=== PATIENT | male | born 1955 | race Caucasian/White ===

== ENCOUNTER 2022-08-14 15:00 | Outpatient (CLI) | payer MEDICARE, BC, SELFPAY ==
[2022-08-14 15:19] LABS: Chloride* 105 mmol/L (96-114); Sodium* 141 mmol/L (135-149)
[2022-08-14 15:22] LABS: Blood Urea Nitrogen* 22 mg/dL (7-30); Carbon Dioxide* 25 mmol/L (20-32); Cholesterol* 146 mg/dL (90-199); Creatinine* 1.3 mg/dL (0.5-1.5); Estimated Glomerular Filt Rate 60 ml/min; Glucose* 94 mg/dL (60-115)
[2022-08-14 15:23] LABS: Calcium* 9.7 mg/dL (8.4-10.6); HDL Cholesterol* 78 mg/dL (>=40); LDL Cholesterol Calculated 39 mg/dL (<100); Triglycerides* 143 mg/dL (40-149)
[2022-08-14 15:30] LABS: Potassium* 4.6 mmol/L (3.6-5.1)
== END 2022-08-14 15:01 | disposition home or self-care (01) ==
PROVIDERS: PCP Family Medicine; Visit Provider Family Medicine
DX: E78.5 Hyperlipidemia, unspecified (principal); I10 Essential (primary) hypertension
CPT/HCPCS: 80048; 80061

== ENCOUNTER 2023-05-20 14:00 | Outpatient (CLI) | payer MEDICARE, BC, SELFPAY | END 2023-05-20 14:01 | disposition home or self-care (01) | LOC: NFLDREF 05-22 06:51 | PROVIDERS: PCP Family Medicine; Referring Provider Family Medicine; Visit Provider Family Medicine | DX: Z01.818 Encounter for other preprocedural examination (principal); D64.9 Anemia, unspecified; N39.0 Urinary tract infection, site not specified; R91.8 Other nonspecific abnormal finding of lung field; J98.59 Other diseases of mediastinum, not elsewhere classified; I10 Essential (primary) hypertension; E78.2 Mixed hyperlipidemia; I25.10 Atherosclerotic heart disease of native coronary artery without angina pectoris; I73.9 Peripheral vascular disease, unspecified; Z72.0 Tobacco use; Z13.89 Encounter for screening for other disorder | CPT/HCPCS: 87086; 87186 ==

== ENCOUNTER 2023-06-10 06:19 | Day surgery (SDC) | payer MEDICARE, BC, SELFPAY ==
[2023-06-10] VITALS (7 sets, daily range): BP systolic 94–105; BP diastolic 62–88; PULSE 71–78; RESP 16; TEMP 36.1–36.6; O2SAT 94–96; BMI 25.2
[2023-06-10] MEDS: LACTATED RINGERS 1000 ML 1,000 ML 100 ML IV (06:35)
--- NOTE | 2023-06-10 07:22 | W.ANESCHARGE ---
Anesthesia Charges Start Date/Time Anesthesia Start Date: 06/10/23 Anesthesia Start Time: 07:50 Stop Date/Time Anesthesia Stop Date: 06/10/23 Anesthesia Stop Time: 08:56
--- NOTE | 2023-06-10 07:30 | CRLHL7_ITS ---
For Patients: As a result of the Century Cures Act, medical imaging exams and procedure reports are released immediately into your electronic medical record. You may view this report before your referring provider. If you have questions, please contact your health care provider. Indication: Port placement Technique: Two fluoroscopic images of the upper chest. Fluoroscopic time 39.7 seconds. IMPRESSION: Fluoroscopic guidance for Port-A-Cath placement. Dictated by Gaudencio Walden MD @ 06/10/2023 9:21:19 AM (Electronically Signed)
[2023-06-10] MEDS: CEFAZOLIN 2 GM INJ IVP (08:01)
[2023-06-10] MEDS: LIDOCAINE 1% MDV 20 ML INJECTION (08:17)
[2023-06-10] MEDS: BUPIVACAINE 0.5% 30 ML INJECTION (08:17)
[2023-06-10] MEDS: HEPARIN 500 UNIT/5 ML SYRINGE IVF (08:35)
--- NOTE | 2023-06-10 08:52 | CRLHL7_ITS ---
For Patients: As a result of the Cures Act, medical imaging exams and procedure reports are released immediately into your electronic medical record. You may view this report before your referring provider. If you have questions, please contact your health care provider. INDICATION: Port placement TECHNIQUE: Chest 1 view COMPARISON: CT-PET 05/03/2023 FINDINGS: Right-sided Port-A-Cath is present with the tip in the mid SVC. Mediastinal adenopathy and post treatment changes to the right lung noted. No pneumothorax. IMPRESSION: No pneumothorax after Port-A-Cath placement. Dictated by Gaudencio Walden MD @ 06/10/2023 9:22:38 AM (Electronically Signed)
--- NOTE | 2023-06-10 08:57 | PM.GSPRC ---
Operative Note Date of procedure: 06/10/23 Pre-op diagnosis: Lung cancer Post-op diagnosis: same Type of Procedure: Right IJ port placement with ultrasound and fluoroscopic guidance. 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 He was recommended to undergo chemotherapy and a port was requested to accomplish this. Procedure Description: After discussing the risks and benefits of the procedure, the patient signed informed consent.? The operative site was marked and the patient was brought to the operating room and placed on the operating table in supine position.? Care was taken to pad the patient's pressure points.?? The patient was then Given sedation by anesthesia.?? The operative site was then prepped and draped in the usual sterile fashion.? A time-out was then performed. The patient's right internal jugular vein was visualized using ultrasound. Local anesthetic was injected into the skin overlying the vein. This was accessed percutaneously using ultrasound guidance. Using Seldinger technique, a guidewire was threaded through the needle. A skin barbra was made around the wire. Next, local anesthetic was injected into the skin below the clavicle and along the proposed tract to the neck incision. A skin incision was then made with a 15 blade and a pocket created in the subcutaneous tissue with cautery. A tunneler was then used to thread the catheter from the chest wall pocket to the neck incision. Once this was done fluoroscopy was brought into the field. Over the wire the tract was dilated using fluoroscopy. The wire and the dilator were then removed leaving the sheath in the vein. Through this, the catheter was threaded. Using fluoroscopy, the catheter was positioned into the distal SVC. The catheter was noted to flush and aspirate easily. The catheter was then connected to the port. The port was placed in the pocket and secured in place with 2 0 Prolene sutures. It was noted to flush and aspirate easily. This was then locked with heparinized saline. The skin was closed with absorbable suture. Glue was then applied. Instrument sponge and needle counts were correct at the end of the case. The patient was woken and taken to the recovery area in stable condition. The patient tolerated the procedure well. Findings: right IJ power port placed in the low SVC Implants: Power port Anesthesia: MAC Surgeon: Kaye Whitten MD Estimated blood loss (mL): 3 Condition: stable Disposition: same day
--- NOTE | 2023-06-10 08:58 | W.ANESCHARGE ---
Anesthesia Charges Start Date/Time Anesthesia Start Date: 06/10/23 Anesthesia Start Time: 07:50 Stop Date/Time Anesthesia Stop Date: 06/10/23 Anesthesia Stop Time: 08:56
== END 2023-06-10 10:12 | disposition home or self-care (01) ==
PROVIDERS: PCP Family Medicine; Visit Provider Surgery
PROC: (CPT 36561; principal; 2023-06-10 07:30)
DX: Z45.2 Encounter for adjustment and management of vascular access device (principal); C34.92 Malignant neoplasm of unspecified part of left bronchus or lung
CPT/HCPCS: 36561; 00532; 71045; 76000; C1788; J0665; J0690; J1100; J1642; J2250; J2371; J2405; J2704; J3010; J3490; J7120

== ENCOUNTER 2023-11-12 09:25 | Outpatient (CLI) | payer MEDICARE, BC, SELFPAY ==
--- NOTE | 2023-11-12 10:00 | CRLHL7_ITS ---
For Patients: As a result of the Century Cures Act, medical imaging exams and procedure reports are released immediately into your electronic medical record. You may view this report before your referring provider. If you have questions, please contact your health care provider. Indication: MALIGNANT NEOPLASM OF LUNG - SCLC, TREATMENT RESPONSE Technique: CT Chest w/ 75cc [id number] Please note that all CT scans at this facility use dose modulation, iterative reconstruction, and/or weight-based dosing when appropriate to reduce radiation dose to as low as reasonably achievable. Comparison: CT PET 05/03/2023, CT chest 04/12/2023 Findings: Right Port-A-Cath is present. Decreased left upper mediastinal lymph node, previously measuring 13 millimeters and now measuring less than 4 millimeters. Decreased precarinal lymph node, previously measuring 13 millimeters, now measuring less than 4 millimeters. Decreased bulky adenopathy in the subcarinal space, now measuring up to 1.8 cm compared to 4.5 cm in AP dimension on the prior study. Decreased soft tissue density in the right hilum. Bilateral focal subareolar gynecomastia. Cholelithiasis. Chronic calcifications associated with the uncinate process of the pancreas. Atherosclerotic disease. Scoliotic deformity. Clearing of previously noted densities within the posterior aspect of the right upper lobe, however, there are 2 new subpleural densities within the right upper lobe, 1 measuring 6.4 millimeters, series 3, image 29 and measuring 5.5 millimeters, series 3, image 39. COPD/emphysema. Left lower lobe scarring. Impression: Decreased adenopathy within the mediastinum and right hilum. Clearing of previously noted densities within the right upper lobe at the posterior lateral aspect. Development of 2 new posterior subpleural nodules measuring 5.5 millimeters and 6.4 millimeters. Chronic cholelithiasis and sequela of chronic pancreatitis. Please note that all CT scans at this facility use dose modulation, iterative reconstruction, and/or weight-based dosing when appropriate to reduce radiation dose to as low as reasonably achievable. Dictated by Gaudencio Walden MD @ 11/12/2023 1:37:26 PM (Electronically Signed)
== END 2023-11-12 09:26 | disposition home or self-care (01) ==
LOC: CT 09:27
PROVIDERS: PCP Family Medicine; Visit Provider Internal Medicine Hematology & Oncology
DX: C34.90 Malignant neoplasm of unspecified part of unspecified bronchus or lung (principal); K80.20 Calculus of gallbladder without cholecystitis without obstruction; K86.1 Other chronic pancreatitis
CPT/HCPCS: 71260; Q9967

== ENCOUNTER 2023-11-20 09:00 | Outpatient (RCR) | payer MEDICARE, BC, SELFPAY ==
[2023-05-30 14:11] LABS: Basophils Absolute Auto 0.02 K/uL (0.00-0.30); Basophils Percent Auto 0.3 % (0.0-3.0); Eosinophils Absolute Auto 0.02 K/uL (0.00-0.50); Eosinophils Percent Auto 0.3 % (0.0-7.0); Hematocrit 36.1 % (37.0-53.0); Hemoglobin* 11.7 gm/dL (13.5-17.5); Immature Granulocytes Abs Auto 0.02 K/uL (0.00-0.30); Immature Granulocytes Pct Auto 0.3 %; Lymphocytes Percent Auto 15.4 % (20-44); Mean Corpuscular HGB Conc 32 gm/dL (32-36); Mean Corpuscular Hemoglobin 31 pg (26-34); Mean Corpuscular Volume 96 fL (80-100); Monocytes Percent Auto 7.8 % (0.0-11.0); Neutrophils Percent Auto 75.9 % (42.0-72.0); Platelet Count* 256 K/uL (140-440); RDW Coefficient of Variation % 12.9 % (11.5-15.5); Red Blood Count 3.76 m/uL (4.30-5.90); White Blood Count* 6.96 K/uL (4.50-11.00)
[2023-05-30 14:21] LABS: Slide Review Reflex No
[2023-05-30 14:42] LABS: Albumin* 4.4 g/dL (3.3-5.0); Chloride* 96 mmol/L (96-114); Potassium* 4.4 mmol/L (3.6-5.1); Sodium* 133 mmol/L (135-149)
[2023-05-30 14:44] LABS: Bilirubin Total* 0.9 mg/dL (0.1-1.5); Creatinine* 1.2 mg/dL (0.5-1.5); Estimated Glomerular Filt Rate 65 ml/min
[2023-05-30 14:45] LABS: Alanine Aminotransferase* 20 U/L (4-50); Alkaline Phosphatase* 59 U/L (40-150); Aspartate Amino Transferase* 36 U/L (12-35); Blood Urea Nitrogen* 25 mg/dL (7-30); Calcium* 9.5 mg/dL (8.4-10.6); Carbon Dioxide* 29 mmol/L (20-32); Glucose* 125 mg/dL (60-115); Total Protein* 7.3 g/dL (6.0-8.3)
--- NOTE | 2023-05-31 11:43 | URNOTE ---
Request received for authorization for Carboplatin (J9045), Etoposide (J9181), Atezolizumab (J9022), Neulasta (J2506), Emend (J1453), Aloxi (J2469). Prior authorization is not required as services are based on medical necessity and follow Medicare guidelines.
--- NOTE | 2023-05-31 15:51 | ONC.NURNOTE ---
After discussion between Mara Curran APRN and Dr. Bronson, orders for neulasta discontinued and not needed at this time.
[2023-05-31 16:27] LABS: Thyroid Stimulating Hormone* 0.117 uIU/mL (0.270-4.20)
[2023-06-02 07:52] LABS: Cortisol, Serum 9.8 ug/dL
[2023-06-03 11:00] VITALS: BP 109/61; PULSE 86; RESP 16; TEMP 35.9; O2SAT 98
[2023-06-03] MEDS: PALONOSETRON 0.25 MG/5 ML inj IV (12:09)
[2023-06-03] MEDS: dexAMETHasone 10 MG in 0.9 % SODIUM CHLORIDE 100 ml 100 ML 404 MG IVPB (12:09)
[2023-06-03] MEDS: FOSAPREPITANT 150 MG inj 150 MG in 0.9 % SODIUM CHLORIDE 250 ml 250 ML 510 MG IVPB (12:34)
[2023-06-03 14:20] LABS: Free T4 Free Thyroxine* 1.51 ng/dL (0.70-1.85)
--- NOTE | 2023-06-03 15:01 | URNOTE ---
Request received for authorization forSteve ([id number]). Prior authorization is not required as services are based on medical necessity and follow Medicare guidelines.
--- NOTE | 2023-06-03 15:40 | ONC.NURNOTE ---
New treatment teaching with son in person and 2 other children on the phone reviewed atezolizumab, carbo, etoposide, treatment schedule, possible side effects, self care management at home, calling with symptoms, ER if fever over 100.4 discussed immunotherapy and chemotherapy differences and calling early with symptom changes at home reviewed contents of the new treatment binder questions addressed from patient and the 3 children listening in person and on the phone consents/SOLITARIO reviewed and signed
--- NOTE | 2023-06-03 16:02 | ONC.NURNOTE ---
Addendum entered by Sheila Ann RN 06/06/23 15:39: Pt doing well today after receiving Tecentriq yesterday. No concerns at this time. Addendum entered by Pippa Adam RN 06/04/23 13:57: Dr. Nascimento reviewed T4 and T3 and noted them to be WNL range so OK to proceed with Tecentriq in am per verbal order Dr. Nascimento despite TSH being 0.117. Patient to follow up with primary MD regarding low TSH Original Note: Pt here for Cycle 1 day 1 of Tecentriq/Carboplatin/Etoposide. VSS. TSH 0.117, reviewed by Dr. Nascimento. Per Dr. Nascimento, we need to obtain a T3 and T4 level prior to giving Tecentriq. Tecentriq on hold today. Pt tolerated Carboplatin and Etoposide without difficulty. Pt's IV did infiltrate after etoposide, pt had a quarter sized infiltrate. Pt instructed to apply warm compresses for 15 min 4x/day for the next 24-48 hours. Nursing to assess on 06/04/23 when pt returns for day [address]. [address] Nascimento T3 and T4 results when resulted to determine when Tecentriq can be initiated. Vegetable Washing Machine Operator faxed TSH level to pt's primary Care physican. Pt also given calendar for when to take antiemetics. Pt verbalized understanding of plan of care.
[2023-06-04 09:04] VITALS: BP 111/70; PULSE 91; RESP 16; TEMP 36.7; O2SAT 99
[2023-06-04] MEDS: GRANISETRON 1 MG/ML inj IVP (09:31)
[2023-06-04 10:32] LABS: Total T3 99 ng/dL (80-200)
[2023-06-05 09:03] VITALS: BP 115/63; PULSE 95; RESP 16; TEMP 36.2; O2SAT 99
[2023-06-05] MEDS: GRANISETRON 1 MG/ML inj IVP (10:52)
[2023-06-24 09:20] LABS: Basophils Percent Auto 0.5 % (0.0-3.0); Eosinophils Percent Auto 0.2 % (0.0-7.0); Hematocrit 26.7 % (37.0-53.0); Hemoglobin* 8.7 gm/dL (13.5-17.5); Immature Granulocytes Pct Auto 1.6 %; Lymphocytes Percent Auto 40.6 % (20-44); Mean Corpuscular HGB Conc 33 gm/dL (32-36); Mean Corpuscular Hemoglobin 31 pg (26-34); Mean Corpuscular Volume 96 fL (80-100); Monocytes Percent Auto 15.1 % (0.0-11.0); Platelet Count* 339 K/uL (140-440); RDW Coefficient of Variation % 13.9 % (11.5-15.5); Red Blood Count 2.78 m/uL (4.30-5.90); White Blood Count* 4.43 K/uL (4.50-11.00)
[2023-06-24 09:37] LABS: Albumin* 3.9 g/dL (3.3-5.0); Chloride* 102 mmol/L (96-114); Potassium* 4.2 mmol/L (3.6-5.1); Slide Review Reflex No; Sodium* 135 mmol/L (135-149)
[2023-06-24 09:39] LABS: Creatinine* 1.8 mg/dL (0.5-1.5); Estimated Glomerular Filt Rate 40 ml/min
[2023-06-24 09:40] LABS: Alanine Aminotransferase* 19 U/L (4-50); Alkaline Phosphatase* 62 U/L (40-150); Aspartate Amino Transferase* 25 U/L (12-35); Bilirubin Total* 0.5 mg/dL (0.1-1.5); Blood Urea Nitrogen* 24 mg/dL (7-30); Carbon Dioxide* 28 mmol/L (20-32); Glucose* 119 mg/dL (60-115); Total Protein* 6.6 g/dL (6.0-8.3)
[2023-06-24 09:41] LABS: Calcium* 8.9 mg/dL (8.4-10.6)
[2023-06-24] MEDS: dexAMETHasone 10 MG in 0.9 % SODIUM CHLORIDE 100 ml 100 ML 404 MG IVPB (11:41)
[2023-06-24] MEDS: PALONOSETRON 0.25 MG/5 ML inj IV (11:41)
[2023-06-24] MEDS: FOSAPREPITANT 150 MG inj 150 MG in 0.9 % SODIUM CHLORIDE 250 ml 250 ML 800 MG IVPB (11:59)
[2023-06-24] MEDS: CARBOplatin 300 MG, TUBING SECONDARY 1 EACH in 0.9 % SODIUM CHLORIDE 250 ml 250 ML 560 MG IVPB (12:37)
[2023-06-25 11:04] VITALS: BP 100/68; PULSE 105; RESP 16; TEMP 36.1; O2SAT 96
[2023-06-25] MEDS: 0.9 % SODIUM CHLORIDE 500 ML 500 ML IVPB (11:50)
[2023-06-25] MEDS: GRANISETRON 1 MG/ML inj IVP (13:20)
[2023-06-25 13:48] VITALS: BMI 23.3
[2023-06-25 21:37] LABS: Cortisol, Serum 18.1 ug/dL
[2023-07-01 08:55] VITALS: BP 111/63; PULSE 99; RESP 18; TEMP 36.9; O2SAT 96
[2023-07-01 09:45] LABS: Basophils Percent Auto 0.6 % (0.0-3.0); Eosinophils Percent Auto 0.6 % (0.0-7.0); Hematocrit 24.3 % (37.0-53.0); Immature Granulocytes Pct Auto 0.9 %; Lymphocytes Percent Auto 32.9 % (20-44); Mean Corpuscular HGB Conc 33 gm/dL (32-36); Mean Corpuscular Hemoglobin 32 pg (26-34); Mean Corpuscular Volume 98 fL (80-100); Monocytes Percent Auto 0.9 % (0.0-11.0); Neutrophils Percent Auto 64.1 % (42.0-72.0); Platelet Count* 275 K/uL (140-440); RDW Coefficient of Variation % 13.9 % (11.5-15.5); Red Blood Count 2.49 m/uL (4.30-5.90); White Blood Count* 3.37 K/uL (4.50-11.00)
[2023-07-01] MEDS: 0.9 % SODIUM CHLORIDE 500 ML 500 ML IVPB (09:45)
[2023-07-01 09:46] LABS: Slide Review Reflex No
[2023-07-01 09:57] LABS: Chloride* 105 mmol/L (96-114); Potassium* 4.1 mmol/L (3.6-5.1); Sodium* 138 mmol/L (135-149)
[2023-07-01] MEDS: dexAMETHasone 10 MG in 0.9 % SODIUM CHLORIDE 100 ml 100 ML 420 MG IVPB (09:58)
[2023-07-01 10:00] LABS: Blood Urea Nitrogen* 25 mg/dL (7-30); Carbon Dioxide* 25 mmol/L (20-32); Creatinine* 1.2 mg/dL (0.5-1.5); Estimated Glomerular Filt Rate 65 ml/min
[2023-07-01 10:01] LABS: Calcium* 8.9 mg/dL (8.4-10.6); Glucose* 113 mg/dL (60-115); Magnesium* 1.3 mg/dL (1.5-2.6)
[2023-07-01] MEDS: MAGNESIUM SULFATE 2 GM/50 ML PIGGYBACK IVPB (11:25)
[2023-07-02] VITALS (8 sets, daily range): BP systolic 78–104; BP diastolic 47–66; PULSE 76–92; RESP 14–18; TEMP 36.3–36.8; O2SAT 95–98
[2023-07-02] MEDS: SODIUM CHLORIDE 0.9 % (FLUSH) 10 ML SYRINGE IVF (13:06)
[2023-07-02] MEDS: HEPARIN 500 UNIT/5 ML SYRINGE IVF (13:06)
[2023-07-08] MEDS: 0.9 % SODIUM CHLORIDE 500 ML 500 ML IVPB (09:25)
[2023-07-08 09:39] LABS: Chloride* 103 mmol/L (96-114); Potassium* 4.4 mmol/L (3.6-5.1); Sodium* 137 mmol/L (135-149)
[2023-07-08 09:42] LABS: Blood Urea Nitrogen* 24 mg/dL (7-30); Carbon Dioxide* 26 mmol/L (20-32); Creatinine* 1.2 mg/dL (0.5-1.5); Estimated Glomerular Filt Rate 65 ml/min; Magnesium* 1.6 mg/dL (1.5-2.6)
[2023-07-08 09:43] LABS: Calcium* 9.2 mg/dL (8.4-10.6); Glucose* 110 mg/dL (60-115)
[2023-07-08 09:47] VITALS: BP 92/66; PULSE 88; RESP 16; TEMP 36.4; O2SAT 97
[2023-07-08] MEDS: dexAMETHasone 10 MG in 0.9 % SODIUM CHLORIDE 100 ml 100 ML 420 MG IVPB (09:54)
--- NOTE | 2023-07-08 10:34 | PC.NURSE ---
Pt present at [facility] for labs and hydration. Mg 1.6. Discussed with Mara Curran APRN and pt was instructed to continue oral magnesium supplementation. Terence verbalized understanding.
[2023-07-08 11:13] LABS: Anion Gap 8 mEq/L (7-15)
[2023-07-15 10:47] LABS: Basophils Absolute Auto 0.01 K/uL (0.00-0.30); Basophils Percent Auto 0.2 % (0.0-3.0); Eosinophils Absolute Auto 0.07 K/uL (0.00-0.50); Eosinophils Percent Auto 1.2 % (0.0-7.0); Hematocrit 31.5 % (37.0-53.0); Hemoglobin* 10.2 gm/dL (13.5-17.5); Immature Granulocytes Abs Auto 0.07 K/uL (0.00-0.30); Immature Granulocytes Pct Auto 1.2 %; Lymphocytes Absolute Auto 1.72 K/uL (0.90-2.90); Lymphocytes Percent Auto 28.7 % (20-44); Mean Corpuscular HGB Conc 32 gm/dL (32-36); Mean Corpuscular Hemoglobin 33 pg (26-34); Mean Corpuscular Volume 100 fL (80-100); Monocytes Percent Auto 15.2 % (0.0-11.0); Neutrophils Absolute Auto 3.21 K/uL (1.7-7.0); Neutrophils Percent Auto 53.5 % (42.0-72.0); Platelet Count* 202 K/uL (140-440); RDW Coefficient of Variation % 17.4 % (11.5-15.5); Red Blood Count 3.14 m/uL (4.30-5.90); White Blood Count* 5.99 K/uL (4.50-11.00)
[2023-07-15 10:49] LABS: Slide Review Reflex No
[2023-07-15 14:38] LABS: Thyroid Stimulating Hormone* 0.491 uIU/mL (0.270-4.20)
[2023-07-15 14:58] LABS: Anion Gap 10 mEq/L (7-15); Blood Urea Nitrogen* 17 mg/dL (7-30); Carbon Dioxide* 25 mmol/L (20-32); Chloride* 104 mmol/L (96-114); Potassium* 4.2 mmol/L (3.6-5.1); Sodium* 139 mmol/L (135-149)
[2023-07-15 14:59] LABS: Alanine Aminotransferase* 23 U/L (4-50); Albumin* 4.1 g/dL (3.3-5.0); Alkaline Phosphatase* 51 U/L (40-150); Aspartate Amino Transferase* 28 U/L (12-35); Bilirubin Total* 0.5 mg/dL (0.1-1.5); Calcium* 9.6 mg/dL (8.4-10.6); Creatinine* 1.2 mg/dL (0.5-1.5); Estimated Glomerular Filt Rate 65 ml/min; Glucose* 164 mg/dL (60-115); Total Protein* 6.9 g/dL (6.0-8.3)
[2023-07-16 08:36] VITALS: BP 97/63; PULSE 96; RESP 16; TEMP 36.4; O2SAT 97
[2023-07-16] MEDS: dexAMETHasone 10 MG in 0.9 % SODIUM CHLORIDE 100 ml 100 ML 404 MG IVPB (09:54)
[2023-07-16] MEDS: PALONOSETRON 0.25 MG/5 ML inj IV (09:54)
[2023-07-16] MEDS: 0.9 % SODIUM CHLORIDE 500 ML 500 ML IVPB (10:17)
[2023-07-16] MEDS: SODIUM CHLORIDE 0.9 % (FLUSH) 10 ML SYRINGE IVF (10:17)
[2023-07-16] MEDS: FOSAPREPITANT 150 MG inj 150 MG in 0.9 % SODIUM CHLORIDE 250 ml 250 ML 510 MG IVPB (10:17)
[2023-07-16] MEDS: CARBOplatin 300 MG, TUBING SECONDARY 1 EACH in 0.9 % SODIUM CHLORIDE 250 ml 250 ML 560 MG IVPB (10:58)
[2023-07-16] MEDS: HEPARIN 500 UNIT/5 ML SYRINGE IVF (13:11)
[2023-07-17 08:44] VITALS: BP 103/70; PULSE 98; RESP 16; TEMP 37.1; O2SAT 97
[2023-07-17] MEDS: GRANISETRON 1 MG/ML inj IVP (08:49)
[2023-07-17] MEDS: 0.9 % SODIUM CHLORIDE 500 ML 500 ML IVPB (08:49)
[2023-07-17] MEDS: HEPARIN 500 UNIT/5 ML SYRINGE IVF (09:34)
[2023-07-17] MEDS: SODIUM CHLORIDE 0.9 % (FLUSH) 10 ML SYRINGE IVF (09:34)
[2023-07-18 09:12] VITALS: BP 91/58; PULSE 90; RESP 16; TEMP 36.2; O2SAT 99
[2023-07-18] MEDS: GRANISETRON 1 MG/ML inj IVP (09:12)
[2023-07-18] MEDS: 0.9 % SODIUM CHLORIDE 250 ml IV (09:12)
[2023-07-18] MEDS: SODIUM CHLORIDE 0.9 % (FLUSH) 10 ML SYRINGE IVF (10:47)
[2023-07-18] MEDS: HEPARIN 500 UNIT/5 ML SYRINGE IVF (10:47)
[2023-07-25 08:37] VITALS: BP 98/63; PULSE 106; RESP 16; TEMP 36.3; O2SAT 98
[2023-07-25] MEDS: 0.9 % SODIUM CHLORIDE 500 ML 500 ML IVPB (08:51)
[2023-07-25] MEDS: dexAMETHasone 10 MG in 0.9 % SODIUM CHLORIDE 100 ml 100 ML 404 MG IVPB (08:59)
--- NOTE | 2023-07-25 09:16 | ONC.NURNOTE ---
Patient here for fluids and dexamethasone. Patient states I am feeling great, no concerns today. BP was 98/63. Denies dizziness and light headedness. Patient stated that Dr. Burnham took him off of Lisinopril 2.5mg and Amlodipine 2.5mg and is only taking Flomax 0.4mg and Metoprolol 25mg daily. Manager Sap could not find this in the documentation from Dr. Burnham, but patient stated he has been in contact by phone with Dr. Burnham and this is what his regimen is. Patient also checks his blood pressure at home daily. Pulse was 107. When palpated by health science writer, it was regularly irregular and skipping a beat about every 15 beats. Patient denies having atrial fibrillation and and irregular heart rate in the past. Will recheck once fluids are infused.
[2023-07-25 09:37] VITALS: BP 101/64; PULSE 94; RESP 16; O2SAT 98
[2023-07-25] MEDS: HEPARIN 500 UNIT/5 ML SYRINGE IVF (09:37)
[2023-07-25] MEDS: SODIUM CHLORIDE 0.9 % (FLUSH) 10 ML SYRINGE IVF (09:38)
--- NOTE | 2023-07-25 09:38 | ONC.NURNOTE ---
Rechecked vital signs. Heart rate now 94bpm and regular.
[2023-07-31 08:31] VITALS: BP 95/66; BP 99/63; PULSE 103; PULSE 119; RESP 20; TEMP 36.6; O2SAT 98
[2023-07-31] MEDS: 0.9 % SODIUM CHLORIDE 500 ML 500 ML IVPB (08:56)
[2023-07-31] MEDS: SODIUM CHLORIDE 0.9 % (FLUSH) 10 ML SYRINGE IVF (08:57)
[2023-07-31] MEDS: HEPARIN 500 UNIT/5 ML SYRINGE IVF (08:57)
[2023-07-31] MEDS: dexAMETHasone 10 MG in 0.9 % SODIUM CHLORIDE 100 ml 100 ML 404 MG IVPB (09:01)
--- NOTE | 2023-07-31 09:15 | ONC.NURNOTE ---
at rest heart rate reg s1s2 at 100 beats per minute. Discussed s/s dehydration and importance of rest and water.
[2023-07-31 12:10] VITALS: BP 129/83; PULSE 90
[2023-08-05 09:03] LABS: Basophils Absolute Auto 0.01 K/uL (0.00-0.30); Basophils Percent Auto 0.2 % (0.0-3.0); Eosinophils Absolute Auto 0.02 K/uL (0.00-0.50); Eosinophils Percent Auto 0.4 % (0.0-7.0); Hematocrit 25.9 % (37.0-53.0); Hemoglobin* 8.4 gm/dL (13.5-17.5); Lymphocytes Absolute Auto 1.36 K/uL (0.90-2.90); Lymphocytes Percent Auto 27.1 % (20-44); Mean Corpuscular HGB Conc 32 gm/dL (32-36); Mean Corpuscular Hemoglobin 34 pg (26-34); Mean Corpuscular Volume 104 fL (80-100); Monocytes Percent Auto 14.5 % (0.0-11.0); Neutrophils Percent Auto 55.8 % (42.0-72.0); Platelet Count* 262 K/uL (140-440); RDW Coefficient of Variation % 20.8 % (11.5-15.5); White Blood Count* 5.02 K/uL (4.50-11.00)
[2023-08-05 09:11] LABS: Slide Review Reflex No
[2023-08-05 09:27] LABS: Albumin* 3.8 g/dL (3.3-5.0)
[2023-08-05 09:28] LABS: Chloride* 102 mmol/L (96-114); Potassium* 4.1 mmol/L (3.6-5.1); Sodium* 136 mmol/L (135-149)
[2023-08-05 09:30] LABS: Anion Gap 8 mEq/L (7-15); Aspartate Amino Transferase* 24 U/L (12-35); Bilirubin Total* 0.3 mg/dL (0.1-1.5); Carbon Dioxide* 26 mmol/L (20-32); Creatinine* 1.3 mg/dL (0.5-1.5); Estimated Glomerular Filt Rate 59 ml/min; Total Protein* 6.5 g/dL (6.0-8.3)
[2023-08-05 09:31] LABS: Alanine Aminotransferase* 19 U/L (4-50); Alkaline Phosphatase* 53 U/L (40-150); Blood Urea Nitrogen* 21 mg/dL (7-30); Calcium* 9.4 mg/dL (8.4-10.6); Glucose* 149 mg/dL (60-115)
[2023-08-05 10:17] LABS: Thyroid Stimulating Hormone* 0.667 uIU/mL (0.270-4.20)
[2023-08-05] MEDS: 0.9 % SODIUM CHLORIDE 250 ml IV (10:30)
[2023-08-05] MEDS: PALONOSETRON 0.25 MG/5 ML inj IV (11:30)
[2023-08-05] MEDS: dexAMETHasone 10 MG in 0.9 % SODIUM CHLORIDE 100 ml 100 ML 420 MG IVPB (11:30)
[2023-08-05] MEDS: FOSAPREPITANT 150 MG inj 150 MG in 0.9 % SODIUM CHLORIDE 250 ml 250 ML 800 MG IVPB (11:51)
[2023-08-05] MEDS: CARBOplatin 300 MG, TUBING SECONDARY 1 EACH in 0.9 % SODIUM CHLORIDE 250 ml 250 ML 560 MG IVPB (12:19)
[2023-08-05] MEDS: HEPARIN 500 UNIT/5 ML SYRINGE IVF (14:26)
[2023-08-05] MEDS: SODIUM CHLORIDE 0.9 % (FLUSH) 10 ML SYRINGE IVF (14:26)
[2023-08-06 08:39] VITALS: BP 100/66; PULSE 116; RESP 16; TEMP 36.9; O2SAT 96
[2023-08-06] MEDS: 0.9 % SODIUM CHLORIDE 250 ml IV (08:58)
[2023-08-06] MEDS: GRANISETRON 1 MG/ML inj IVP (08:58)
[2023-08-06 10:42] VITALS: BP 91/56; PULSE 93; RESP 16; TEMP 36.6; O2SAT 95
[2023-08-06 11:03] VITALS: BP 98/62; PULSE 97; RESP 16; TEMP 36.6; O2SAT 95
[2023-08-06 11:48] VITALS: BP 110/73; RESP 16; TEMP 36.7; O2SAT 98
[2023-08-06 12:48] VITALS: BP 131/81; PULSE 84; RESP 18; TEMP 36.7; O2SAT 97
[2023-08-06 13:31] VITALS: BP 136/82; PULSE 80; RESP 16; TEMP 36.8; O2SAT 99
[2023-08-07 08:35] VITALS: BP 107/66; PULSE 88; RESP 16; TEMP 36.4; O2SAT 98
[2023-08-07] MEDS: 0.9 % SODIUM CHLORIDE 250 ml IV (08:49)
[2023-08-07] MEDS: GRANISETRON 1 MG/ML inj IVP (08:49)
[2023-08-07] MEDS: SODIUM CHLORIDE 0.9 % (FLUSH) 10 ML SYRINGE IVF (08:49)
[2023-08-27 10:17] LABS: Basophils Absolute Auto 0.02 K/uL (0.00-0.30); Basophils Percent Auto 0.4 % (0.0-3.0); Eosinophils Absolute Auto 0.05 K/uL (0.00-0.50); Eosinophils Percent Auto 0.9 % (0.0-7.0); Hematocrit 28.6 % (37.0-53.0); Hemoglobin* 9.1 gm/dL (13.5-17.5); Immature Granulocytes Abs Auto 0.06 K/uL (0.00-0.30); Immature Granulocytes Pct Auto 1.1 %; Lymphocytes Absolute Auto 1.17 K/uL (0.90-2.90); Lymphocytes Percent Auto 21.7 % (20-44); Mean Corpuscular HGB Conc 32 gm/dL (32-36); Mean Corpuscular Hemoglobin 34 pg (26-34); Mean Corpuscular Volume 108 fL (80-100); Monocytes Percent Auto 15.6 % (0.0-11.0); Neutrophils Absolute Auto 3.25 K/uL (1.7-7.0); Neutrophils Percent Auto 60.3 % (42.0-72.0); Platelet Count* 283 K/uL (140-440); RDW Coefficient of Variation % 22.6 % (11.5-15.5); Red Blood Count 2.65 m/uL (4.30-5.90); White Blood Count* 5.39 K/uL (4.50-11.00)
[2023-08-27 10:19] LABS: Slide Review Reflex No
[2023-08-27 10:25] LABS: Albumin* 4.1 g/dL (3.3-5.0)
[2023-08-27 10:26] LABS: Chloride* 103 mmol/L (96-114); Potassium* 4.4 mmol/L (3.6-5.1); Sodium* 138 mmol/L (135-149)
[2023-08-27 10:28] LABS: Anion Gap 10 mEq/L (7-15); Aspartate Amino Transferase* 35 U/L (12-35); Bilirubin Total* 0.3 mg/dL (0.1-1.5); Carbon Dioxide* 25 mmol/L (20-32); Creatinine* 1.3 mg/dL (0.5-1.5); Estimated Glomerular Filt Rate 59 ml/min
[2023-08-27 10:29] LABS: Alanine Aminotransferase* 19 U/L (4-50); Alkaline Phosphatase* 64 U/L (40-150); Blood Urea Nitrogen* 16 mg/dL (7-30); Calcium* 9.1 mg/dL (8.4-10.6); Glucose* 126 mg/dL (60-115); Total Protein* 6.9 g/dL (6.0-8.3)
[2023-08-27 11:11] LABS: Thyroid Stimulating Hormone* 0.858 uIU/mL (0.270-4.20)
[2023-08-27] MEDS: SODIUM CHLORIDE 0.9 % (FLUSH) 10 ML SYRINGE IVF (12:27)
[2023-08-27] MEDS: HEPARIN 500 UNIT/5 ML SYRINGE IVF (12:27)
[2023-08-28 14:11] LABS: Cortisol, Serum 13.2 ug/dL
[2023-09-16] MEDS: HEPARIN 500 UNIT/5 ML SYRINGE IVF (08:45)
[2023-09-16] MEDS: SODIUM CHLORIDE 0.9 % (FLUSH) 10 ML SYRINGE IVF (08:45)
[2023-09-16 08:53] LABS: Basophils Absolute Auto 0.02 K/uL (0.00-0.30); Basophils Percent Auto 0.3 % (0.0-3.0); Eosinophils Percent Auto 1.4 % (0.0-7.0); Hemoglobin* 11.1 gm/dL (13.5-17.5); Immature Granulocytes Abs Auto 0.02 K/uL (0.00-0.30); Immature Granulocytes Pct Auto 0.3 %; Lymphocytes Percent Auto 17.3 % (20-44); Mean Corpuscular HGB Conc 32 gm/dL (32-36); Mean Corpuscular Hemoglobin 35 pg (26-34); Mean Corpuscular Volume 109 fL (80-100); Monocytes Percent Auto 11.2 % (0.0-11.0); Neutrophils Absolute Auto 5.03 K/uL (1.7-7.0); Neutrophils Percent Auto 69.5 % (42.0-72.0); Platelet Count* 124 K/uL (140-440); RDW Coefficient of Variation % 17.4 % (11.5-15.5); Red Blood Count 3.21 m/uL (4.30-5.90); White Blood Count* 7.23 K/uL (4.50-11.00)
[2023-09-16 08:56] LABS: Slide Review Reflex No
[2023-09-16 09:12] LABS: Albumin* 4.3 g/dL (3.3-5.0); Chloride* 105 mmol/L (96-114); Potassium* 4.2 mmol/L (3.6-5.1); Sodium* 139 mmol/L (135-149)
[2023-09-16 09:14] LABS: Bilirubin Total* 0.6 mg/dL (0.1-1.5); Creatinine* 1.4 mg/dL (0.5-1.5); Estimated Glomerular Filt Rate 54 ml/min
[2023-09-16 09:15] LABS: Alanine Aminotransferase* 19 U/L (4-50); Alkaline Phosphatase* 66 U/L (40-150); Anion Gap 8 mEq/L (7-15); Aspartate Amino Transferase* 41 U/L (12-35); Blood Urea Nitrogen* 21 mg/dL (7-30); Calcium* 9.2 mg/dL (8.4-10.6); Carbon Dioxide* 26 mmol/L (20-32); Glucose* 116 mg/dL (60-115); Total Protein* 7.3 g/dL (6.0-8.3)
[2023-09-17 08:25] VITALS: BP 111/53; PULSE 108; RESP 16; TEMP 36.1; O2SAT 95
[2023-09-17] MEDS: 0.9 % SODIUM CHLORIDE 250 ml IV (09:04)
[2023-09-17] MEDS: SODIUM CHLORIDE 0.9 % (FLUSH) 10 ML SYRINGE IVF ×2 (09:04→09:41)
[2023-09-17] MEDS: HEPARIN 500 UNIT/5 ML SYRINGE IVF (09:41)
[2023-09-18 01:37] LABS: Cortisol, Serum 16.3 ug/dL
[2023-10-08 08:51] LABS: Basophils Percent Auto 0.5 % (0.0-3.0); Eosinophils Percent Auto 2.7 % (0.0-7.0); Hematocrit 36.2 % (37.0-53.0); Hemoglobin* 11.5 gm/dL (13.5-17.5); Immature Granulocytes Pct Auto 0.2 %; Lymphocytes Percent Auto 19.5 % (20-44); Mean Corpuscular HGB Conc 32 gm/dL (32-36); Mean Corpuscular Hemoglobin 35 pg (26-34); Mean Corpuscular Volume 109 fL (80-100); Neutrophils Percent Auto 65.1 % (42.0-72.0); Platelet Count* 116 K/uL (140-440); RDW Coefficient of Variation % 14.1 % (11.5-15.5); Red Blood Count 3.31 m/uL (4.30-5.90); White Blood Count* 4.01 K/uL (4.50-11.00)
[2023-10-08 08:56] LABS: Slide Review Reflex No
[2023-10-08 09:07] LABS: Albumin* 4.3 g/dL (3.3-5.0); Chloride* 104 mmol/L (96-114); Potassium* 4.3 mmol/L (3.6-5.1); Sodium* 140 mmol/L (135-149)
[2023-10-08 09:10] LABS: Alanine Aminotransferase* 18 U/L (4-50); Alkaline Phosphatase* 51 U/L (40-150); Anion Gap 11 mEq/L (7-15); Aspartate Amino Transferase* 30 U/L (12-35); Bilirubin Total* 0.3 mg/dL (0.1-1.5); Blood Urea Nitrogen* 15 mg/dL (7-30); Carbon Dioxide* 25 mmol/L (20-32); Creatinine* 1.1 mg/dL (0.5-1.5); Estimated Glomerular Filt Rate 73 ml/min; Glucose* 99 mg/dL (60-115)
[2023-10-08 09:11] LABS: Calcium* 9.1 mg/dL (8.4-10.6)
[2023-10-08 10:34] LABS: Thyroid Stimulating Hormone* 0.523 uIU/mL (0.270-4.20)
[2023-10-08] MEDS: SODIUM CHLORIDE 0.9 % (FLUSH) 10 ML SYRINGE IVF (11:37)
[2023-10-08] MEDS: HEPARIN 500 UNIT/5 ML SYRINGE IVF (11:37)
[2023-10-10 10:40] LABS: Cortisol, Serum 11.9 ug/dL
[2023-10-29 08:31] VITALS: BP 122/71; PULSE 99; RESP 16; TEMP 36.4; O2SAT 98
[2023-10-29 08:42] LABS: Basophils Percent Auto 0.5 % (0.0-3.0); Eosinophils Percent Auto 2.3 % (0.0-7.0); Hematocrit 36.7 % (37.0-53.0); Hemoglobin* 11.8 gm/dL (13.5-17.5); Immature Granulocytes Pct Auto 0.2 %; Lymphocytes Percent Auto 18.8 % (20-44); Mean Corpuscular HGB Conc 32 gm/dL (32-36); Mean Corpuscular Hemoglobin 34 pg (26-34); Mean Corpuscular Volume 107 fL (80-100); Monocytes Percent Auto 10.7 % (0.0-11.0); Neutrophils Percent Auto 67.5 % (42.0-72.0); Platelet Count* 119 K/uL (140-440); RDW Coefficient of Variation % 13.1 % (11.5-15.5); Red Blood Count 3.43 m/uL (4.30-5.90)
[2023-10-29 08:43] LABS: Slide Review Reflex No
[2023-10-29 08:55] LABS: Albumin* 4.4 g/dL (3.3-5.0); Chloride* 108 mmol/L (96-114)
[2023-10-29 08:56] LABS: Potassium* 4.6 mmol/L (3.6-5.1); Sodium* 140 mmol/L (135-149)
[2023-10-29 08:58] LABS: Alkaline Phosphatase* 61 U/L (40-150); Anion Gap 10 mEq/L (7-15); Aspartate Amino Transferase* 29 U/L (12-35); Bilirubin Total* 0.3 mg/dL (0.1-1.5); Carbon Dioxide* 22 mmol/L (20-32); Creatinine* 1.4 mg/dL (0.5-1.5); Estimated Glomerular Filt Rate 54 ml/min
[2023-10-29 08:59] LABS: Alanine Aminotransferase* 20 U/L (4-50); Blood Urea Nitrogen* 33 mg/dL (7-30); Calcium* 9.2 mg/dL (8.4-10.6); Glucose* 104 mg/dL (60-115)
[2023-10-29 09:57] LABS: Thyroid Stimulating Hormone* 0.809 uIU/mL (0.270-4.20)
[2023-10-29] MEDS: SODIUM CHLORIDE 0.9 % (FLUSH) 10 ML SYRINGE IVF (11:12)
[2023-10-29] MEDS: HEPARIN 500 UNIT/5 ML SYRINGE IVF (11:12)
[2023-10-30 19:37] LABS: Cortisol, Serum 14.6 ug/dL
[2023-11-19 14:35] LABS: Basophils Absolute Auto 0.02 K/uL (0.00-0.30); Basophils Percent Auto 0.4 % (0.0-3.0); Eosinophils Absolute Auto 0.03 K/uL (0.00-0.50); Eosinophils Percent Auto 0.5 % (0.0-7.0); Hematocrit 37.5 % (37.0-53.0); Hemoglobin* 12.3 gm/dL (13.5-17.5); Immature Granulocytes Abs Auto 0.01 K/uL (0.00-0.30); Immature Granulocytes Pct Auto 0.2 %; Lymphocytes Percent Auto 16.6 % (20-44); Mean Corpuscular HGB Conc 33 gm/dL (32-36); Mean Corpuscular Hemoglobin 34 pg (26-34); Mean Corpuscular Volume 102 fL (80-100); Monocytes Percent Auto 10.8 % (0.0-11.0); Neutrophils Absolute Auto 3.96 K/uL (1.7-7.0); Neutrophils Percent Auto 71.5 % (42.0-72.0); Platelet Count* 120 K/uL (140-440); RDW Coefficient of Variation % 12.6 % (11.5-15.5); Red Blood Count 3.67 m/uL (4.30-5.90); White Blood Count* 5.54 K/uL (4.50-11.00)
[2023-11-19 14:43] LABS: Slide Review Reflex No
[2023-11-19 14:55] LABS: Albumin* 4.8 g/dL (3.3-5.0); Chloride* 103 mmol/L (96-114); Potassium* 4.4 mmol/L (3.6-5.1); Sodium* 137 mmol/L (135-149)
[2023-11-19 14:57] LABS: Anion Gap 9 mEq/L (7-15); Bilirubin Total* 0.5 mg/dL (0.1-1.5); Carbon Dioxide* 25 mmol/L (20-32); Creatinine* 1.5 mg/dL (0.5-1.5); Estimated Glomerular Filt Rate 50 ml/min
[2023-11-19 14:58] LABS: Alanine Aminotransferase* 35 U/L (4-50); Alkaline Phosphatase* 70 U/L (40-150); Aspartate Amino Transferase* 38 U/L (12-35); Blood Urea Nitrogen* 29 mg/dL (7-30); Glucose* 103 mg/dL (60-115); Total Protein* 7.8 g/dL (6.0-8.3)
[2023-11-19 14:59] LABS: Calcium* 9.4 mg/dL (8.4-10.6)
[2023-11-20] MEDS: 0.9 % SODIUM CHLORIDE 250 ml IV (09:37)
[2023-11-20] MEDS: HEPARIN 500 UNIT/5 ML SYRINGE IVF (09:37)
[2023-11-21 20:05] LABS: Cortisol, Serum 9.8 ug/dL
== END 2023-11-26 23:59 | disposition home or self-care (01) ==
LOC: CCIC 09:00
PROVIDERS: Clinical Nurse Specialist; Internal Medicine Hematology & Oncology; PCP Family Medicine; Referring Provider Family Medicine; Visit Provider Internal Medicine Hematology & Oncology
DX: C34.91 Malignant neoplasm of unspecified part of right bronchus or lung (principal); Z51.12 Encounter for antineoplastic immunotherapy; I25.10 Atherosclerotic heart disease of native coronary artery without angina pectoris; I73.9 Peripheral vascular disease, unspecified
CPT/HCPCS: 36415; 36430; 36591; 70553; 80048; 80053; 82533; 83735; 84439; 84443; 84480; 85025; 86850; 86900; 86901; 86922; 96360; 96361; 96365; 96366; 96376; 96413; 96415; 96417; 97802; 99203; 99205; 99211; 99212; 99213; 99214; 99215; G0463; A9575; J1100; J1453; J1626; J1642; J2469; J3475; J7050; J7120; J9022; J9045; J9181; P9016

== ENCOUNTER 2023-12-16 09:54 | Outpatient (CLI) | payer MEDICARE, BC, SELFPAY ==
--- OUTSIDE RECORDS SUMMARY | 2023-12-16 10:01 | XMS_ITS | Clinical Summary ---
Author Name Unknown Organization [facility] Address [place], [place] [address] Care Team Providers Care Javascript Ui Developer Name Role Phone Andrei Burnham MD Primary Care Provider [phone] Allergies No known active allergies Medications Medication Sig Dispensed Refills Start Date End Date Status atorvastatin (LIPITOR) 40 mg tablet Take 40 mg by mouth once daily. 0 Active aspirin 81 mg tablet Take 81 mg by mouth once daily with a meal. 0 Active omega-3 fatty acids-vitamin E (FISH OIL) 1,000 mg cap Take by mouth once daily. 0 Active atenolol (TENORMIN) 50 mg tablet Take 100 mg by mouth once daily. 0 05/31/2013 Active nitroglycerin (NITROSTAT) 0.[address] 1 tablet under the tongue every 5 minutes if needed for Chest Pain (For chest pain x 3. Hold if SBP less than 90 mmHg.). 1 Bottle 1 05/31/2013 Active Cholecalciferol, Vitamin D3, (VITAMIN D-3) 400 unit capsule Take by mouth once daily. 0 Active folic acid 1 mg tabletIndications:Mac rocytic anemia Take 1 tablet by mouth once daily. 30 tablet 0 05/17/2015 Active omeprazole (PRILOSEC) 20 mg Delayed-Release capsule Take 20 mg by mouth once daily before a meal. 0 Active lisinopriL (PRINIVIL; ZESTRIL) 2.5 mg tablet 0 03/14/2020 Active metoprolol succinate (TOPROL XL) 25 mg Sustained-Release tablet 0 03/14/2020 Active amLODIPine (NORVASC) 5 mg tabletIndications:HTN (hypertension) Take 1 tablet by mouth once daily. 30 tablet 2 05/31/2020 Active Active Problems Problem Noted Date Diagnosed Date Acute pancreatitis 05/15/2015 ASHD (arteriosclerotic heart disease) 05/15/2015 Macrocytic anemia 05/15/2015 S/P L carotid endarterectomy 10/07/13 11/04/2013 Carotid stenosis, left--s/p L CEA 10-07-1309/01 CAD (coronary artery disease) 05/31/2013 HTN (hypertension) 05/31/2013 Hyperlipidemia 05/31/2013 Tobacco abuse 05/31/2013 Acute coronary syndrome 05/30/2013 NSTEMI (non-ST elevated myoc ardial infarction) on 05/29/2013 05/30/2013 Resolved Problems Problem Noted Date Diagnosed Date Resolved Date Carotid stenosis, right 09/01/201308/18 Family History Medical History Relation Name Comments Heart Disease Brother PTCA Heart Disease Father Diabetes Mother Relation Name Status Comments Brother Father Mother Social History Tobacco Use Types Packs/Day Years Used Date Smoking Tobacco: Former Cigarettes 0.5 44.2 0 11/18/1971 - 01/2016 Smokeless Tobacco: Never Tobacco Cessation:Counseling Given: Not Answered Comments:There were periods when he smoked 2-2.5 ppd. Now down to ~1 ppd. Alcohol Use Standard Drinks/Week Comments Yes 21 (1 standard drink = 0.6 oz pu re alcohol) 07/14/15: 3 a day Social Connections Answer Date Recorded Frequency of Communication with Friends and Fami ly Not on file 11/18/2021 Financial Resource Strain Answer Date R ecorded Difficulty of Paying Living Expenses Not on file 11/18/2021 Difficulty of Paying Living Expenses Not on file 11/18/2021 Sex and Gender Information Value Date Recorded Sex Assigned at Not on file Gender Identity Not on file Sexual Orientation Not on file Obstetrics History Last Filed Vital Signs Vital Sign Reading Time Taken Comments Blood Pressure 140/78 05/23/2023 1:15 PM CDT Pulse 79 05/23/2023 1:15 PM CDT Temperature 36.8 ??C (98.2 ??F) 05/23/2023 1:15 PM CD T Respiratory Rate 16 05/23/2023 1:15 PM CDT Oxygen Saturation 98% 05/23/2023 1:15 PM CDT Inhaled Oxygen Concentration - - Weight 67.8 kg (149 lb 8 oz) 05/22/2023 9:08 AM CDT Height 164 cm (5' 4.57) 05/22/2023 9:08 AM CDT Body Mass Index 25.21 05/22/2023 9:08 AM CDT Plan of Treatment Health Maintenance Due Date Last Done Comments Tdap 1965 Depression screening for age 12+ 1966 BMI (ht and wt on same day) for age 18+ 02/25/1972 Hepatitis C screening for ag e 18-79 02/25/1972 Tetanus booster 1974 Colonoscopy through age 75 1999 Zoster (shingles) series for age 50+ (1 of 2) 02/25/2004 Lipids for age 45-75 05/30/2018 05/30/2013, 01/01/2007, 03/15/2006, Additional history exists AAA screening age 65-74 2019 Pneumococcal series for age 65+ (1 of 1 - PCV) 2019 COVID-19 vaccine series ( season) 2023 12/05/2021, 02/22/2021, 01/25/2021 Influenza for age 65+ 07/19/2023 Medical Devices Implanted Type [place] Tax [employer]or Device Identifier Shelf Expiration Date Model / Serial / Lot Patch Vasc 0.8x8cm Biological Peripatch - [id number] Implanted:Qty: 1 on 10/07/2013 by Devin Cardoza MD at [facility] Left: Carotid Artery [employer] 06/17/2016 [id number] / / [id number] Insurance Payer Benefit Plan / Group Subscriber ID Effective Dates Phone Address Type WC WORKERS COMP [employer] WORK[employer] COMP [id number] Effective for all dates [address] [place] [address] MEDICARE PART B - HB USE ONLY MEDICARE PART B HB ONLY [id number] 2019-Presen t ATTN: CLAIMS [address] [place] [address] MEDICARE PART A - HB USE ONLY MEDICARE PART A HB ONLY [id number] 2019-Presen t ATTN: CLAIMS [address] [place] [address] [facility] [id number] 2019-Presen t [address] [place] [address] MEDICARE - PB USE ONLY MEDICARE PB ONLY [id number] 2019-Tiffany baxter ATTN: CLAIMS [address] [place] [address] Advance Directives Latest Code Status on File Code Status Date Activated Date Inactivated Comments Full Code 05/23/2023 8:59 AM 05/23/2023 3:32 PM Question Answer Comments Code Status Discussion: Unable to Assess Preferences, Provider to review later Code Status History Code Status Date Activated Date Inactivated Comments Full Code 05/15/2015 3:16 PM 05/17/2015 2:44 PM Full Code 10/07/2013 10:12 AM 10/08/2013 1:33 PM Full Code 10/07/2013 6:08 AM 10/07/2013 10:12 AM Full Code 05/29/2013 11:10 PM 05/31/2013 3:24 PM Care Teams Javascript Ui Developer Relationship Specialty Start Date End Date Andrei Burnham MD PCP - General Family Practice 06/08/13
--- OUTSIDE RECORDS SUMMARY | 2023-12-16 10:01 | XMS_ITS | Clinical Summary ---
Author Name Unknown Organization [facility] Address [address] [place] [address] Care Team Providers Care Hooker Inspector Name Role Phone Jez Burnham MD Primary Care Provider [phone] Allergies No known active allergies Medications Medication Sig Dispensed Refills Start Date End Date Status LIPITOR 20 MG OR TABS one daily 30 5 04/18/1993 Active TENORMIN 100 MG OR TABS 1 TABLET DAILY 30 0 04/18/1993 Active NITROSTAT 0.4 MG SL SUBL one tablet under tongue as needed chest pain. may repeat every 5 minutes x 2. Call 911 if no relief 30 5 04/18/1993 Active ASPIRIN EC 325 MG OR TBEC one daily 100 3 04/18/1993 Active MULTIVITAMINS OR TABS one by mouth once daily 100 5 04/18/1993 Active diclofenac (VOLTAREN) 75 MG EC tablet Take 1 tablet (75 mg) by mouth 2 times daily as needed 60 tablet 1 06/29/2013 Active Additional Information Patient not taking.Reported on 10/23/2021 Aspirin Buf,[id number] gO, 81 MG TABS Take 81 mg by mouth 0 A ctive cholecalciferol (VITAMIN D3) 10 mcg (400 units) TABS tablet Daily 0 08/16/2021 Active lisinopril (ZESTRIL) 2.5 MG tablet 0 03/14/2020 Active metoprolol succinate ER (TOPROL-XL) 25 MG 24 hr tablet 0 03/14/2020 Active omeprazole (PRILOSEC) [address] capsule Take 20 mg by mouth 0 Activ e atorvastatin (LIPITOR) 40 MG tablet 0 10/05/2021 Active omega 3 1000 MG CAPS 0 Active Social History Tobacco Use Types Packs/Day Years Used Date Smoking Tobacco: Former Cigarettes 1 30 Smokeless Tobacco: Never Alcohol Use Standard Drinks/Week Comments Not Currently 0 (1 standard drink = 0.6 oz pur e alcohol) Adolescent Education Answer Date Record ed Getting School Help Needed Not on file 09/03 Sex and Gender Information Value Date Recorded Sex Assigned at Not on file Gender Identity Not on file Sexual Orientation Not on file Last Filed Vital Signs Vital Sign Reading Time Taken Comments Blood Pressure 131/80 10/23/2021 3:00 PM TALENT ACQUISITION SOURCER Pulse 97 10/23/2021 3:00 PM TALENT ACQUISITION SOURCER Temperature - - Respiratory Rate 18 10/23/2021 3:00 PM TALENT ACQUISITION SOURCER Oxygen Saturation 98% 10/23/2021 3:00 PM TALENT ACQUISITION SOURCER Inhaled Oxygen Concentration - - Weight 68.5 kg (151 lb) 10/23/2021 3:00 PM TALENT ACQUISITION SOURCER Height 167.6 cm (5' 6) 10/23/2021 3:00 PM TALENT ACQUISITION SOURCER Body Mass Index 24.37 10/23/2021 3:00 PM TALENT ACQUISITION SOURCER Plan of Treatment Health Maintenance Due Date Last Done Comments ADVANCE CARE PLANNING 1954 ANNUAL REVIEW OF HM ORDERS 1954 CT COLONOGRAPHY 1954 FIT 1954 FLEX SIG 1954 sDNA (Cologuard) 1954 COLONOSCOPY 02/25/1964 COLORECTAL CANCER SCREENING 02/25/1964 HEPATITIS C SCREENING 02/25/1972 LIPID 1989 LUNG CANCER SCREENING 02/25/2004 RSV VACCINE ( & 60+) (1 - 1-dose 60+ series) 2014 AORTIC ANEURYSM SCREENING (SYSTEM ASSIGNED) 2019 MEDICARE ANNUAL WELLNESS VISIT 2019 Pneumococcal Vaccine: 65+ Years (2 of 2 - PCV) 2019 05/08/2013 FALL RISK ASSESSMENT 10/23/2022 10/23/2021 COVID-19 Vaccine (3 - 2022- season) 2023 02/22/2021, 01/25/2021 INFLUENZA VACCINE (#1) 2023 , 08/16/2021, 09/05/2020, Additional history exists PHQ-2 (once per calendar year) 2023 DTAP/TDAP/TD IMMUNIZATION (4 - Td or Tdap) 08/16/2031 08/16/2021, 02/27/2012, 02/27/2012, Additional history exists ZOSTER IMMUNIZATION Completed 12/10/2018, 10/02/2018, 09/21/2014 HPV IMMUNIZATION Aged Out No longer e ligible based on patient's age to complete this topic IPV IMMUNIZATION Aged Out No longer e ligible based on patient's age to complete this topic MENINGITIS IMMUNIZATION Aged Out No l onger eligible based on patient's age to complete this topic RSV MONOCLONAL ANTIBODY Aged Out No l onger eligible based on patient's age to complete this topic Care Teams Hooker Inspector Relationship Specialty Start Date End Date Jez Burnham MD [facility] [address] [place] [address] PCP - General Family Medicine 10/09/21
--- OUTSIDE RECORDS SUMMARY | 2023-12-16 10:01 | XMS_ITS | Referral Summary ---
Author Name Unknown Organization [facility] Address [address] [place] [address] Care Team Providers Care Floriculture Teacher Name Role Phone Jez Burnham MD Primary Care Provider [phone] Allergies No known active allergies Medications Medication [...] Information Patient not taking.Reported on 10/23/2021 Aspirin Buf,WcVhyk-[id number]-R gO, 81 MG TABS Take 81 mg [...] Comments Blood Pressure 131/80 10/23/2021 3:00 PM PET CAREGIVER Pulse 97 10/23/2021 3:00 PM PET CAREGIVER Temperature - - Respiratory Rate 18 10/23/2021 3:00 PM PET CAREGIVER Oxygen Saturation 98% 10/23/2021 3:00 PM PET CAREGIVER Inhaled Oxygen Concentration - - Weight 68.5 kg (151 lb) 10/23/2021 3:00 PM PET CAREGIVER Height 167.6 cm (5' 6) 10/23/2021 3:00 PM PET CAREGIVER Body Mass Index 24.37 10/23/2021 3:00 PM PET CAREGIVER Plan of Treatment Not on file Care Teams Floriculture Teacher Relationship Specialty Start Date End Date Jez Burnham MD [facility] [address] [place] [address] PCP - General Family Medicine 10/09/21
--- OUTSIDE RECORDS SUMMARY | 2023-12-16 10:02 | XMS_ITS | Encounter Summary ---
Author Name Unknown Organization [place] Address [facility] [place] [address] Care Team Providers Care Panel Builder Name Role Phone Jez Burnham MD Primary Care Provider [phone] Melinda Dolan DO Unavailable + Encounter Details Date Type Department Care Team (Late st Contact Info) Description 03/26/2023 Telephone [facility] [address] [address] Lona Diaz RN Social History Tobacco Use Types Packs/Day Years Used Date Smoking Tobacco: Former Cigarettes 1 30 Smokeless Tobacco: Never Alcohol Use Standard Drinks/Week Comments Not Currently 0 (1 standard drink = 0.6 oz pur e alcohol) Sex and Gender Information Value Date Recorded Sex Assigned at Not on file Gender Identity Not on file Sexual Orientation Not on file documented as of this encounter Miscellaneous Notes * Telephone Encounter - Lona Diaz RN - 04/10/2023 1:14 PM CDT Spoke with patient today. Will revisit his PAD after treatment has been done on mediastinal mass Will check back with the patient in a few months. Instructed to call if questions. Meghan Diaz RN IR nurse clinician [phone] * Telephone Encounter - Lona Diaz RN - 03/26/2023 3:[address] Pranav's , was notified from [facility] reading radiologist regarding incidental finding of posterior mediastinal mass that was noted on CTA abdomen/pelvis that was performed on 03/25/2023. Contacted primary provider Dr. Jez Brunham at [facility]. Spoke to customer care representative: Informed of incidental finding, need to follow up with patient and obtain CT chest with contrast. Discussed that Dr. Cornejo was only seeing the patient for leg claudication. Consult was on back on October 2021. Patient did not respond to repeated attempts to schedule imaging. Was then referred back for claudication. Agreed to obtain CTA abdomen/pelvis with runoff, per patient request wantedimaging at [facility]. credit coordinator states she will notify Dr. Burnham JOSHUA. Discussed that we are deferring to primary to notify patient of findings. Meghan Diaz RN IR nurse clinician [phone] * Telephone Encounter - Lona Diaz RN - 03/26/2023 12:00 PM CDT Contacted patient did have CTA at [facility]. Will call and ask images to be pushed to [facility] and fax report. Once obtained will review with Dr. Dolan. Meghan Diaz RN IR nurse clinician [phone] documented in this encounter Plan of Treatment Not on file documented as of this encounter Visit Diagnoses Not on filedocumented in this encounter Care Teams Panel Builder Relationship Specialty Start Date End Date Jez Burnham MD [facility] [address] [place] [address] PCP - General Family Medicine 10/09/21 Melinda Dolan DO [facility] [address] [place] [address] Assigned Heart and Vascular Provider 11/05/21 04/26/23 documented as of this encounter
--- OUTSIDE RECORDS SUMMARY | 2023-12-16 10:02 | XMS_ITS | Encounter Summary ---
Author Name Unknown Organization [place] Address [address] [place] [address]. [place] [address] Care Team Providers Care Ironer Hand Name Role Phone Jez Burnham MD Primary Care Provider [phone] Melinda Dolan DO Unavailable + Encounter Details Date Type Department Care Team (Late st Contact Info) Description 03/06/2023 Telephone [facility] [place] [address] [place] [phone] Melinda Dolan, [facility] [address] [place] [address] Social History Tobacco Use Types Packs/Day Years [...] Telephone Encounter - Lona Diaz RN - 03/11/2023 10:23 AM CDT Contacted patient, he would like to schedule CTA at [facility]. Faxed to [place] radiology. Discussed patient needs to notify me when completed. Meghan Daiz RN IR nurse clinician [phone] * Telephone Encounter - Massimo Ortega - 03/06/2023 2:41 PM CDT [facility] Who is the name of the provider?: Magdaleno What is the location you see this provider at/preferred location?: Theresa Person calling / Facility: [facility] Phone number: [phone] Nurse call back needed: YES Reason for call: Patients PCP's office calling to request a follow up with Vascular / IR for patient. Daniella, will discuss sending recent medical records and a referral to [facility]. Please call Daniella to clarify any additional info. Pharmacy location: n/a Outside Imaging: n/a Can we leave a detailed message on this number? YES documented in this encounter Plan of Treatment Not on file documented as of this encounter Visit Diagnoses Not on filedocumented in this encounter Care Teams Ironer Hand Relationship Specialty Start Date End Date Jez Burnham MD [facility] [address] [place] [address] PCP - General Family Medicine 10/09/21 Melinda Dolan DO [facility] [address] [facility] [address] [place] [address] Assigned Heart and Vascular Provider 11/05/21 04/26/23 documented as of this encounter
--- OUTSIDE RECORDS SUMMARY | 2023-12-16 10:02 | XMS_ITS | Encounter Summary ---
Author Name Unknown Organization [facility] Address [address] [place] [address] Care Team Providers Care Back Winder Name Role Phone Elsewhere, Pcp Primary Care Provider Unavailabl e Encounter Details Date Type Department Care Team (Latest Contact Info) Description 09/23/2023 9:00 AM MANAGER OF CUSTOMER BILLING - 09/23/2023 11:59 PM [email or web address] Hospital Encounter Department of Radiation Oncology in [place], [place] [address] [place] [phone] Meghana Tay M.D. [address] [place] [address] Discharge Disposition: Home or Self Care Social History Tobacco Use Types Packs/Day Years Used Date Smoking Tobacco: Former Cigarettes 3 Q uit: 2016 Smokeless Tobacco: Never Alcohol Use Standard Drinks/Week Comments Yes 2 (1 standard drink = 0.6 oz pur e alcohol) every other day Nutrition Answer Date Recorded Nutrition: EVOO Fat Source Unknown 05/31 Nutrition: Servings of Fruits/Vegetables per Day Not on file 05/31/2023 Dental Answer Date Recorded Dental: Regular Dentist Unknown 05/31/20 Sex and Gender Information Value Date Recorded Sex Assigned at Not on file Gender Identity Not on file Sexual Orientation Not on file documented as of this encounter Medications at Time of Discharge Medication Sig Dispensed Refills Start Date End Date acetaminophen (TylenoL) 325 mg tablet Take 650 mg by mouth. 0 08/10/2022 aspirin 81 mg chewable tablet Chew 1 tablet daily. 0 08/02/2016 atorvastatin (LIPITOR) 40 mg tablet Take 40 mg by mouth. 0 07/25/2012 benzonatate (TESSALON) 200 mg capsule Take 200 mg by mouth. 0 07/28/2023 bismuth subsalicylate (PEPTO BISMOL) 262 mg tablet Take 2 tablets by mouth. 0 08/10/2022 cholecalciferol (VITAMIN D3) 10 mcg (400 Unit) tablet daily. 0 08/16/2021 Dulera 50-5 mcg/actuation HFA aerosol inhaler 0 06/25/2023 folic acid 1 mg tablet Take 1 tablet by mouth daily. 0 05/17/2015 metoprolol succinate (TOPROL-XL) 25 mg 24 hr tablet 0 08/07/2016 multivitamin tablet Take 1 tablet by mouth daily. 0 08/02/2016 nitroglycerin (NITROSTAT) 0.[address] 1 tablet under the tongue as needed. 0 08/02/2016 omega 4-xjo-vfq-fish oil (fish oil) 1,000 mg (120 mg-180 mg) capsule Take 1 capsule by mouth daily. 0 08/02/2016 omeprazole (PriLOSEC) [address] capsule Take 20 mg by mouth. 0 tamsulosin (FLOMAX) 0.4 mg 24 hr capsule 0 09/08/2023 thiamine (VITAMIN B1) 100 mg tablet Take 1 tablet by mouth daily. 0 08/07/2016 documented as of this encounter Plan of Treatment Not on file documented as of this encounter Visit Diagnoses Not on filedocumented in this encounter Care Teams Back Winder Relationship Specialty Start Date End Date Elsewhere, Pcp PCP - General 12/07/19 documented as of this encounter
--- OUTSIDE RECORDS SUMMARY | 2023-12-16 10:02 | XMS_ITS | Encounter Summary ---
Author Name Unknown Organization [facility] Address [address] [place] [address] Care Team Providers Care Licensed Chemical Spray Technician Name Role Phone Elsewhere, Pcp Primary Care Provider Unavailabl e Encounter Details Date Type Department Care Team (Late st Contact Info) Description 09/27/2023 Documentation Department of Radiation Oncology in [place], [place] [address] [place] [address] Meghana Tay M.D. [address] [place] [address] Social History Tobacco Use Types Packs/Day Years [...] as of this encounter Miscellaneous Notes * Radiation Completion Notes - Veronika Faustin R.N. - 09/27/2023 11:59 PM CST DIAGNOSIS: 1. 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 Treatment Intent: Palliative Concomitant Therapy: None Single Plan Treatment Course: 1xLung Plan ID Fractions Dose / Fraction (cGy) Dose Treated (cGy) Dose Planned (cGy) First Treatment Last Treatment Elapsed Days [id number] 300 3000 3000 09/16/2023 09/27/2023 11 Course Summary 09/16/2023 09/27/2023 11 Radiation Modality: Photons CLINICAL SUMMARY Mr. Cr Castrejon completed radiation treatment as planned without interruptions. The course of treatment was tolerated well. The patient experienced no toxicities during radiation treatment. TREATMENT RESPONSE: Response to treatment will be determined by post-treatment imaging and/or laboratory work. RECOMMENDED FOLLOW UP: Primary Medical Oncologist. Dr. Nascimento Signed by: Veronika Faustin R.N., 10/01/2023 3:[address] 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
--- OUTSIDE RECORDS SUMMARY | 2023-12-16 10:02 | XMS_ITS | Encounter Summary ---
Author Name Unknown Organization [place] Address [address] [facility] [facility] [place] [address] Care Team Providers Care Baller Tender Name Role Phone Jez Burnham MD Primary Care Provider [phone] Melinda Dolan DO Unavailable + Encounter Details Date Type Department Care Team (Late st Contact Info) Description 03/11/2023 Orders Only [facility] [place] [address] [place] [phone] Lona Diaz, RN Social History Tobacco Use Types Packs/Day [...] on file documented as of this encounter Plan of Treatment Not on file documented as of this encounter Visit Diagnoses Not on filedocumented in this encounter Care Teams Baller Tender Relationship Specialty Start Date End Date Jez Burnham MD [facility] [address] [place] [address] PCP - General Family Medicine 10/09/21 Melinda Dolan DO [facility] [address] [place], [place] [address] Assigned Heart and Vascular Provider 11/05/21 04/26/23 documented as of this encounter
--- OUTSIDE RECORDS SUMMARY | 2023-12-16 10:02 | XMS_ITS ---
Author Name Unknown Organization [facility] Address [address] [place] [address] Care Team Providers Care Grinder Set Up Operator Name Role Phone Unavailable Unavailable Unavailable Surgery Details Not on file Complications Check Surgery Details section. Procedure Estimated Blood Loss Check Surgery Details section. Procedure Findings Check Surgery Details section. Procedure Specimens Taken Check Surgery Details section.
--- OUTSIDE RECORDS SUMMARY | 2023-12-16 10:02 | XMS_ITS | Referral Summary ---
Author Name Unknown Organization [facility] Address [address] [place] [address] Care Team Providers Care Garment Sewer Hand Name Role Phone Elsewhere, Pcp Primary Care Provider Unavailabl e Source Comments Patient records contain information from all sites at [facility]. For routine questions regarding patient records, call [phone] during business hours, M-F 8:00 AM - 5:00 PM Central Time. Record requests for emergency care only can be directed to [phone] at any time.[facility] Encounters Date Type Department Care Team Description 10/03/2023 Clinical Communication Department of Radiation Oncology in [address] [address] Meghana Tay M.D. 09/27/2023 Documentation Department of Radiation Oncology in [address] [address] Meghana Tay M.D. 09/27/2023 10:26 AM LOOSELEAF BINDER COVERER - 09/27/2023 11:59 PM LOOSELEAF BINDER COVERER Hospital Encounter Department of Radiation Oncology in [address] [address] Meghana Tay M.D. Discharge Disposition: Home or Self Care 09/26/2023 10:24 AM LOOSELEAF BINDER COVERER - 09/26/2023 4:10 PM LOOSELEAF BINDER COVERER Hospital Encounter Department of Radiation Oncology in [address] [address] Maggi, Meghana I., M.D. 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 Discharge Disposition: Home or Self Care 09/25/2023 10:26 AM LOOSELEAF BINDER COVERER - 09/25/2023 11:59 PM LOOSELEAF BINDER COVERER Hospital Encounter Department of Radiation Oncology in [address] [address] Meghana Tay M.D. Discharge Disposition: Home or Self Care 09/24/2023 8:24 AM LOOSELEAF BINDER COVERER - 09/24/2023 11:59 PM LOOSELEAF BINDER COVERER Hospital Encounter Department of Radiation Oncology in [address] [address] Meghana Tay M.D. Discharge Disposition: Home or Self Care 09/23/2023 9:00 AM LOOSELEAF BINDER COVERER - 09/23/2023 11:59 PM LOOSELEAF BINDER COVERER Hospital Encounter Department of Radiation Oncology in [address] [address] Meghana Tay M.D. Discharge Disposition: Home or Self Care 09/20/2023 8:51 AM CDT - 09/20/2023 11:59 PM CDT Hospital Encounter Department of Radiation Oncology in [address] [address] Meghana Tay M.D. Discharge Disposition: Home or Self Care 09/19/2023 9:20 AM CDT - 09/19/2023 11:59 PM CDT Hospital Encounter Department of Radiation Oncology in [address] [address] Meghana Tay M.D. Discharge Disposition: Home or Self Care 09/18/2023 9:44 AM CDT - 09/18/2023 11:59 PM CDT Hospital Encounter Department of Radiation Oncology in [address] [address] Meghana Tay M.D. Discharge Disposition: Home or Self Care 09/17/2023 9:53 AM CDT - 09/17/2023 5:41 PM CDT Hospital Encounter Department of Radiation Oncology in [address] [address] Meghana Tay M.D. 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 Discharge Disposition: Home or Self Care 09/16/2023 7:44 AM CDT - 09/16/2023 11:59 PM CDT Hospital Encounter Department of Radiation Oncology in [address] [address] Meghana Tay M.D. Discharge Disposition: Home or Self Care from Last 3 Months Allergies No known active allergies Medications Medication Sig Dispensed Refills Start Date End Date Status aspirin 81 mg chewable tablet Chew 1 tablet daily. 0 08/02/2016 Active bismuth subsalicylate (PEPTO BISMOL) 262 mg tablet Take 2 tablets by mouth. 0 08/10/2022 Active cholecalciferol (VITAMIN D3) 10 mcg (400 Unit) tablet daily. 0 08/16/2021 Active folic acid 1 mg tablet Take 1 tablet by mouth daily. 0 05/17/2015 Active metoprolol succinate (TOPROL-XL) 25 mg 24 hr tablet 0 08/07/2016 Active multivitamin tablet Take 1 tablet by mouth daily. 0 08/02/2016 Active nitroglycerin (NITROSTAT) 0.[address] 1 tablet under the tongue as needed. 0 08/02/2016 Active omeprazole (PriLOSEC) [address] capsule Take 20 mg by mouth. 0 Active tamsulosin (FLOMAX) 0.4 mg 24 hr capsule 0 09/08/2023 Active thiamine (VITAMIN B1) 100 mg tablet Take 1 tablet by mouth daily. 0 08/07/2016 Active acetaminophen (TylenoL) 325 mg tablet Take 650 mg by mouth. 0 08/10/2022 Active atorvastatin (LIPITOR) 40 mg tablet Take 40 mg by mouth. 0 07/25/2012 Active Dulera 50-5 mcg/actuation HFA aerosol inhaler 0 06/25/2023 Active benzonatate (TESSALON) 200 mg capsule Take 200 mg by mouth. 0 07/28/2023 Active omega 6-mlv-vyw-fish oil (fish oil) 1,000 mg (120 mg-180 mg) capsule Take 1 capsule by mouth daily. 0 08/02/2016 Active Active Problems Problem Noted Date Diagnosed Date Malignant Neoplasm Of Lung Small Cell Right 08/18 Cancer Staging:Clinical stage from 05/23/2023:Stage IVB(cT3(3), cN3, cM1c) - Unsigned Social History Tobacco Use Types Packs/Day Years [...] Sign Reading Time Taken Comments Blood Pressure 148/72 09/26/2023 11:10 AM LOOSELEAF BINDER COVERER Pulse 90 09/26/2023 11:10 AM LOOSELEAF BINDER COVERER Temperature 36.6 ??C (97.8 ??F) 09/26/2023 1 1:10 AM LOOSELEAF BINDER COVERER Respiratory Rate 16 08/08/2016 10:0 7 AM CDT Value from [employer]. Oxygen Saturation - - Inhaled Oxygen Concentration - - Weight 64.2 kg (141 lb 8.6 oz) 09/26/2023 11:10 AM LOOSELEAF BINDER COVERER Height 167 cm (5' 5.75) 08/02/2016 8:0 0 PM CDT Body Mass Index 23.02 08/02/2016 8:00 PM CDT Plan of Treatment Not on file Procedures Procedure Name Priority Date/Time Associated Diagnosis Comments ARIA COURSE COMPLETE TREATMENT INFORMATION Routine 09/27/2023 10:53 AM LOOSELEAF BINDER COVERER ARIA DAILY TREATMENT INFORMATION Routine 09/27/2023 10:53 AM LOOSELEAF BINDER COVERER ARIA DAILY TREATMENT INFORMATION Routine 09/26/2023 10:59 AM LOOSELEAF BINDER COVERER ARIA DAILY TREATMENT INFORMATION Routine 09/25/2023 10:57 AM LOOSELEAF BINDER COVERER ARIA DAILY TREATMENT INFORMATION Routine 09/24/2023 8:43 AM LOOSELEAF BINDER COVERER ARIA DAILY TREATMENT INFORMATION Routine 09/23/2023 9:27 AM LOOSELEAF BINDER COVERER ARIA DAILY TREATMENT INFORMATION Routine 09/20/2023 9:20 AM CDT ARIA DAILY TREATMENT INFORMATION Routine 09/19/2023 10:11 AM CDT ARIA DAILY TREATMENT INFORMATION Routine 09/18/2023 10:49 AM CDT ARIA DAILY TREATMENT INFORMATION Routine 09/17/2023 10:33 AM CDT ARIA DAILY TREATMENT INFORMATION Routine 09/16/2023 8:14 AM CDT from Last 3 Months Results * Aria Course Complete Treatment Information (09/27/2023 10:53 AM LOOSELEAF BINDER COVERER) Pathologist [facility] Course ID 1xLung [facility]A Course Start Date 3 10:49 LOOSELEAF BINDER COVERER [facility] Course End Date 3 12:01 LOOSELEAF BINDER COVERER [facility] First Treatment Date 3 08:11 LOOSELEAF BINDER COVERER [facility] Last Treatment Date 3 10:53 LOOSELEAF BINDER COVERER [facility] Treatment Elapsed Days 11 [facility] Reference Point [id number] [facility] Dosage Given to Date cGy 3000 [facility] Plan ID [id number] [facility] Fractions Treated [facility] Date [facility] Total Fractions 10 [facility] Prescribed Dose Per Fraction 300 [facility] Prescription Dose in cGy 3000 [facility] Plan Primary Reference Point [id number] [facility] 09/27/2023 10:5 3 AM LOOSELEAF BINDER COVERER Provider Not In System RADIATION ONCOLOG Y ORDERABLES ST[facility] CELSOA na * Aria Daily Treatment Information (09/27/2023 10:53 AM LOOSELEAF BINDER COVERER) Only the most recent of10 resultswithin the time period is included. Course ID 1xLung [facility] Course Start Date 3 10:49 LOOSELEAF BINDER COVERER [facility] First Treatment Date 3 08:11 LOOSELEAF BINDER COVERER [facility] Last Treatment Date 3 10:53 LOOSELEAF BINDER COVERER [facility] Treatment Elapsed Days 11 [facility] Reference Point [id number] [facility] Dosage Given to Date cGy 3000 [facility] Session Dosage Given 300 [facility] Plan ID [id number] [facility] Fractions Treated to Date 10 [facility] Planned Total Fractions 10 [facility] Prescribed Dose Per Fraction 300 [facility] Prescription Dose in cGy 3000 [facility] Plan Primary Reference Point [id number] [facility] 09/27/2023 10:5 3 AM LOOSELEAF BINDER COVERER Provider Not In System RADIATION ONCOLOG Y ORDERABLES ELVA ARAGON na from Last 3 Months Care Teams Garment Sewer Hand Relationship Specialty Start Date End Date Elsewhere, Pcp PCP - General 12/07/19
--- OUTSIDE RECORDS SUMMARY | 2023-12-16 10:02 | XMS_ITS | Encounter Summary ---
Author Name Unknown Organization [facility] Address [address] [place] [address] Care Team Providers Care Transportation Aide Name Role Phone Elsewhere, Pcp Primary Care Provider Unavailabl e Encounter Details Date Type Department Care Team (Latest Contact Info) Description 09/26/2023 10:24 AM SIGNAL TESTER - 09/26/2023 11:59 PM [facility] Hospital Encounter Department of Radiation Oncology in [place], [place] [address] [place] [address] Meghana Tay M.D. [address] [place] [address] Discharge Disposition: Home or Self Care Social [...] the tongue as needed. 0 08/02/2016 omega 8-ige-zfw-fish oil (fish oil) 1,000 mg (120 mg-180 [...] on filedocumented in this encounter Care Teams Transportation Aide Relationship Specialty Start Date End Date Elsewhere, Pcp PCP - General 12/07/19 documented as of this encounter
--- OUTSIDE RECORDS SUMMARY | 2023-12-16 10:02 | XMS_ITS | Encounter Summary ---
Author Name Unknown Organization [facility] Address [address] [place] [address] Care Team Providers Care Drywall Boardhanger Name Role Phone Elsewhere, Pcp Primary Care Provider Unavailabl e Reason for Referral * Radiation Therapy (Routine) - Authorized Specialty Diagnoses / Procedures Referred By Murray baxter Referred To Contact Diagnoses Malignant Neoplasm Of Lung Small Cell Right (HCC) Procedures Management Visit Meghana Tay M.D. [address] [place] [address] [facility] Region Referral ID Status Reason Start Date Expiration Date V isits Requested Visits Authorized [id number] Authorized 08/29/2023 08/28/2024 10 10 CAL RECORD CLERK Reason for Visit * Radiation Therapy (Routine) - Authorized Specialty Diagnoses / Procedures Referred By Murray baxter Referred To Contact Diagnoses Malignant Neoplasm Of Lung Small Cell Right (HCC) Procedures Management Visit Meghana Tay M.D. [address] [place] [address] [facility] Region Referral ID Status Reason Start Date Expiration Date V isits Requested Visits Authorized [id number] Authorized 08/29/2023 08/28/2024 10 10 Encounter Details Date Type Department Care Team (Latest Contact Info) Description 09/26/2023 10:24 AM MEDICAL RECORD CLERK - 09/26/2023 4:10 PM MEDICAL RECORD CLERK Hospital Encounter Department of Radiation Oncology in [address] [address] Meghana Tay M.D. [address] [place] [address] Malignant Neoplasm Of Lung Small Cell Right (HCC) Social History Tobacco Use Types Packs/Day Years [...] on file documented as of this encounter Last Filed Vital Signs Vital Sign Reading Time Taken Comments Blood Pressure 148/72 09/26/2023 11:10 AM MEDICAL RECORD CLERK Pulse 90 09/26/2023 11:10 AM MEDICAL RECORD CLERK Temperature 36.6 ??C (97.8 ??F) 09/26/2023 11:[address] Respiratory Rate - - Oxygen Saturation - - Inhaled Oxygen Concentration - - Weight 64.2 kg (141 lb 8.6 oz) 09/26/2023 11:10 AM MEDICAL RECORD CLERK Height - - Body Mass Index 23.02 08/02/2016 8:00 PM CDT documented in this encounter Medications at Time of Discharge [...] the tongue as needed. 0 08/02/2016 omega 5-fez-qoo-fish oil (fish oil) 1,000 mg (120 mg-180 mg) capsule Take 1 capsule by mouth daily. 0 08/02/2016 omeprazole (PriLOSEC) [address] capsule Take 20 mg by mouth. 0 tamsulosin (FLOMAX) 0.4 mg 24 hr capsule 0 09/08/2023 thiamine (VITAMIN B1) 100 mg tablet Take 1 tablet by mouth daily. 0 08/07/2016 documented as of this encounter Progress Notes * Meghana Tay M.D. - 09/26/2023 11:00 AM CST ATTESTATION FOR MANAGEMENT VISIT I saw and evaluated the patient and participated in the crump portions of the service as noted below.I reviewed the documentation of Ms. Veronika Faustin RN and agree with the findings and plan. Thepatient appears well on exam. We will continue with radiation as planned and we anticipate that he will complete treatments this week. We anticipate that Mr. Cr Castrejon will complete radiation treatment as planned without interruptions. The course of treatment was tolerated well. The patient experienced no toxicities during radiation treatment. Follow-up will be with Dr. Nascimento, and we will see him back as needed. Meghana Tay M.D., 09/26/2023 SUBJECTIVE REASON FOR VISIT Evaluation for side effects while receiving radiation treatment for his extensive stage small cell lung cancer. SUPERVISED BY: Meghana Tay M.D. HISTORY OF PRESENT ILLNESS Mr. rC Castrejon is a 68 y.o. male with smoker with extensive stage small-cell right lung cancer. He is now undergoing radiation therapy. Treatment Course: 1xLung Plan ID Fractions Dose / Fraction (cGy) Dose Treated (cGy) Dose Planned (cGy) First Treatment Last Treatment Elapsed Days [id number] 300 2400 3000 09/16/2023 09/25/2023 9 Course Summary 09/16/2023 09/25/2023 9 The patient was seen and examined today with Dr. Tay. The patient reports that he is doing well. He is no longer taking tessalon pearls. He feels cough has improved overall. He takes cough syrup once daily. He denies fevers, shortness of breath or esophagitis. PATIENT REPORTED SYMPTOM SCREEN FATIGUE (Scale: 0 = no fatigue; 10 = worst fatigue you can imagine): 2 PAIN (Scale: 0 = no pain; 10 = worst pain you can imagine): 2 OVERALL QUALITY OF LIFE (Scale: 0 = as bad as can be; 10 = as good as can be): 9 OBJECTIVE BP 148/72 (BP Location: Left arm, Patient Position: Sitting, Cuff Size: Regular) Pulse 90 Temp 36.6 ??C (Temporal) Wt 64.2 kg BMI 23.02 kg/m?? PHYSICAL EXAM General: Alert and oriented in no apparent distress. ASSESSMENT / PLAN #1 Extensive stage small-cell lung cancer (cT3 N3 M1c), s/p 4 cycles chemotherapy, last infusion August 07, 2023 #2 Radiotherapy to the right hilar and subcarinal lymph nodes initiated on September 16, 2023; anticipated date of completion is on September 27, 2023 The patient is tolerating radiation treatment well overall. Discussed with patient that if he were to develop pain with eating he could take Tylenol for discomfort. Radiation related side effects should start to resolve in the coming weeks. We discussed the signs and symptoms radiation pneumonitis consisting of marked increase in shortness of breath, dry cough, pain with inspiration and possible fever. He understands that he is at risk for this between 6 weeks and 6 months post treatment. Patient will have follow up with Dr. Nascimento at [facility] on October 08, 2023. Follow up Dr. Tay will be as needed. He will contact us with any questions or concerns. We will continue with radiation treatment as planned. Signed by: Veronika Faustin R.N. 09/26/2023 8:49 AM MEDICAL RECORD CLERK CAL RECORD CLERK documented in this encounter Plan of Treatment Scheduled Orders Name Type Priority Associated Diagnoses Orde r Schedule Management Visit Radiation Oncology Routine Malignant Neoplasm Of Lung Small Cell Right (HCC) Once for 1 Occurrences starting 09/26/2023 until 09/26/2023 documented as of this encounter Visit Diagnoses Diagnosis Malignant Neoplasm Of Lung Small Cell Right (HCC) documented in this encounter Care Teams Drywall Boardhanger Relationship Specialty Start Date End Date Elsewhere, Pcp PCP - General 12/07/19 documented as of this encounter
--- OUTSIDE RECORDS SUMMARY | 2023-12-16 10:02 | XMS_ITS ---
Author Name Unknown Organization [facility] Address [address] [place] [address] Care Team Providers Care Customer Experience Consultant Name Role Phone Elsewhere, Pcp Primary Care Provider Unavailabl e Active Problems Problem Noted Date Diagnosed Date Malignant Neoplasm Of Lung Small Cell Right 08/18 Cancer Staging:Clinical stage from 05/23/2023:Stage IVB(cT3(3), cN3, cM1c) - Unsigned Current Oncology Plans No current plan information found. Past Plans No past plan information found. Radiation Treatments * Plan Last Treated On Elapsed Days Fractions Treated Prescribed Fraction Dose Prescribed Total Dose [id number] 09/27/2023 11 10 300 cGy 3,000 cGy Reference Point Last Treated On Elapsed Days Session Dose Total Dose [id number] 09/27/2023 11 300 cGy 3,000 cGy
--- OUTSIDE RECORDS SUMMARY | 2023-12-16 10:02 | XMS_ITS | Encounter Summary ---
Author Name Unknown Organization [facility] Address [address] [place] [address] Care Team Providers Care Ice Skating Teacher Name Role Phone Elsewhere, Pcp Primary Care Provider Unavailabl e Encounter Details Date Type Department Care Team (Latest Contact Info) Description 09/25/2023 10:26 AM INSTRUCTOR PROGRAMMABLE CONTROLLERS - 09/25/2023 11:[address] [facility] Hospital Encounter Department of Radiation Oncology in [place], [place] [address] [place] [phone] Meghana Tay M.D. [address] [place] [address] Discharge Disposition: Home or Self Care Social [...] the tongue as needed. 0 08/02/2016 omega 6-enr-rky-fish oil (fish oil) 1,000 mg (120 mg-180 [...] on filedocumented in this encounter Care Teams Ice Skating Teacher Relationship Specialty Start Date End Date Elsewhere, Pcp PCP - General 12/07/19 documented as of this encounter
--- OUTSIDE RECORDS SUMMARY | 2023-12-16 10:02 | XMS_ITS | Encounter Summary ---
Author Name Unknown Organization [facility] Address [address] [place] [address] Care Team Providers Care Fire Boat Engineer Name Role Phone Elsewhere, Pcp Primary Care Provider Unavailabl e Encounter Details Date Type Department Care Team (Latest Contact Info) Description 09/24/2023 8:24 AM HAND POLISHER - 09/24/2023 11:59 PM [facility] Hospital Encounter Department of Radiation Oncology in [place], [place] [address] [place] [address] Meghana Tay M.D. [address] [place] [address] Discharge Disposition: Home or Self Care Social [...] the tongue as needed. 0 08/02/2016 omega 9-tyw-koz-fish oil (fish oil) 1,000 mg (120 mg-180 [...] on filedocumented in this encounter Care Teams Fire Boat Engineer Relationship Specialty Start Date End Date Elsewhere, Pcp PCP - General 12/07/19 documented as of this encounter
--- OUTSIDE RECORDS SUMMARY | 2023-12-16 10:02 | XMS_ITS | Encounter Summary ---
Author Name Unknown Organization [facility] Address [address] [place] [address] Care Team Providers Care Livestock Dealer Name Role Phone Elsewhere, Pcp Primary Care Provider Unavailabl e Encounter Details Date Type Department Care Team (Latest Contact Info) Description 09/27/2023 10:26 AM SENIOR ART DIRECTOR - 09/27/2023 11:59 PM [facility] Hospital Encounter Department of Radiation Oncology in [place], [place] [address] [place] [address] Meghana Tay M.D. [address] [place] [address] Discharge Disposition: Home or Self Care Social [...] the tongue as needed. 0 08/02/2016 omega 6-ouo-ile-fish oil (fish oil) 1,000 mg (120 mg-180 [...] on filedocumented in this encounter Care Teams Livestock Dealer Relationship Specialty Start Date End Date Elsewhere, Pcp PCP - General 12/07/19 documented as of this encounter
--- OUTSIDE RECORDS SUMMARY | 2023-12-16 10:02 | XMS_ITS | Encounter Summary ---
Author Name Unknown Organization [facility] Address [address] [place] [address] Care Team Providers Care Optical Laboratory Manager Name Role Phone Elsewhere, Pcp Primary Care Provider Unavailabl e Encounter Details Date Type Department Care Team (Late st Contact Info) Description 10/03/2023 Clinical Communication Department of Radiation Oncology in [place], [place] [address] [place] [phone] Meghana Tay M.D. [address] [place] [address] Social History Tobacco Use Types Packs/Day Years [...] encounter Miscellaneous Notes * Telephone Encounter - Lynn Cooper R.N. - 10/04/2023 10:11 AM MITER GRINDER OPERATOR ASSESSMENT Patient reports that the last few days he has noticed a soreness esophageal area when he eats and drinks. Patient reports pain is mild and not bothering him. Patient also reports mild fatigue. Patient denies fevers or chills or other new symptoms. He feels he is still able to eat and drink quite well. He is asking if this pain is expected or not. PLAN I explained to patient that this pain can occur as a side effects with radiation therapy. Patient can trial 1000 mg of extra strength Tylenol 30 minutes before breakfast, lunch and dinner to help with pain control. If this is not managing his pain. Radiation Oncology [place] can be contacted at anytime for any questions or concerns. I reviewed our interventional physiatrist phone number with patient as well today. Disposition/Recommendation: self-care - appropriate at this time, patient encouraged to call back with questions. Information/Education: patient/caller able to teach back. Caller agreeable to plan of care: yes. The following references were used: nursing clinical judgement. R GRINDER OPERATOR * Telephone Encounter - Niya Morel - 10/03/2023 11:33 AM CST Other Reason for Call Caller: Cr Relationships to patient: Self Reason for call: Patient stopped by and stated that he his throat has been hurting with eating and drinking. He said it started yesterday. He wanted to make sure this was normal and if there is anything that can be done to help with the pain. He would appreciate a call at [phone]. Thank you. R GRINDER OPERATOR documented in this encounter Plan of Treatment Not on file documented as of this encounter Visit Diagnoses Not on filedocumented in this encounter Care Teams Optical Laboratory Manager Relationship Specialty Start Date End Date Elsewhere, Pcp PCP - General 12/07/19 documented as of this encounter
--- OUTSIDE RECORDS SUMMARY | 2023-12-16 10:02 | XMS_ITS | Clinical Summary ---
Author Name Unknown Organization [facility] Address [address] [place] [address] Care Team Providers Care Jewel Diameter Gauger Name Role Phone Elsewhere, Pcp Primary Care Provider Unavailabl e Source Comments Patient records contain information from all sites at [facility]. For routine questions regarding patient records, call [phone] during business hours, M-F 8:00 AM - 5:00 PM Central Time. Record requests for emergency care only can be directed to [phone] at any time.[facility] Allergies No known active allergies Medications Medication [...] mg by mouth. 0 07/28/2023 Active omega 0-sdb-zer-fish oil (fish oil) 1,000 mg (120 mg-180 mg) capsule Take 1 capsule by mouth daily. 0 08/02/2016 Active Active Problems Problem Noted Date Diagnosed Date Malignant Neoplasm Of Lung Small Cell Right 08/18 Cancer Staging:Clinical stage from 05/23/2023:Stage IVB(cT3(3), cN3, cM1c) - Unsigned Encounters Date Type Department Care Team Description 10/03/2023 Clinical Communication Department of Radiation Oncology in [address] [address] Meghana Tay M.D. 09/27/2023 10:26 AM DIRECTOR BUILDING - 09/27/2023 11:59 PM DIRECTOR BUILDING Hospital Encounter Department of Radiation Oncology in [address] [address] Meghana Tay M.D. Discharge Disposition: Home or Self Care 09/27/2023 Documentation Department of Radiation Oncology in [address] [address] Meghana Tay M.D. 09/26/2023 10:24 AM DIRECTOR BUILDING - 09/26/2023 4:10 PM DIRECTOR BUILDING Hospital Encounter Department of Radiation Oncology in [address] [address] Meghana Tay M.D. Malignant Neoplasm Of Lung Small Cell Right (HCC) 09/26/2023 10:24 AM DIRECTOR BUILDING - 09/26/2023 11:59 PM DIRECTOR BUILDING Hospital Encounter Department of Radiation Oncology in [address] [address] Meghana Tay M.D. Discharge Disposition: Home or Self Care 09/25/2023 10:26 AM DIRECTOR BUILDING - 09/25/2023 11:59 PM DIRECTOR BUILDING Hospital Encounter Department of Radiation Oncology in [address] [address] Meghana Tay M.D. Discharge Disposition: Home or Self Care 09/24/2023 8:24 AM DIRECTOR BUILDING - 09/24/2023 11:59 PM DIRECTOR BUILDING Hospital Encounter Department of Radiation Oncology in [address] [address] Meghana Tay M.D. Discharge Disposition: Home or Self Care 09/23/2023 9:00 AM DIRECTOR BUILDING - 09/23/2023 11:59 PM DIRECTOR BUILDING Hospital Encounter Department of Radiation Oncology in [address] [address] Meghana Tay M.D. Discharge Disposition: Home or Self Care 09/20/2023 8:51 AM CDT - 09/20/2023 11:59 PM CDT Hospital Encounter Department of Radiation Oncology in [address] [address] Meghana Tay M.D. Discharge Disposition: Home or Self Care 09/19/2023 9:20 AM CDT - 09/19/2023 11:59 PM CDT Hospital Encounter Department of Radiation Oncology in [address] [address] Meghana Tay M.D. Discharge Disposition: Home or Self Care 09/18/2023 9:44 AM CDT - 09/18/2023 11:59 PM CDT Hospital Encounter Department of Radiation Oncology in [address] [address] Meghana Tay M.D. Discharge Disposition: Home or Self Care 09/17/2023 9:53 AM CDT - 09/17/2023 5:41 PM CDT Hospital Encounter Department of Radiation Oncology in [address] [address] Meghana Tay M.D. Malignant Neoplasm Of Lung Small Cell Right (HCC) 09/17/2023 9:53 AM CDT - 09/17/2023 11:59 PM CDT Hospital Encounter Department of Radiation Oncology in [address] [address] Meghana Tay M.D. Discharge Disposition: Home or Self Care 09/16/2023 7:44 AM CDT - 09/16/2023 11:59 PM CDT Hospital Encounter Department of Radiation Oncology in [address] [address] Meghana Tay M.D. Discharge Disposition: Home or Self Care from Last 3 Months Social History Tobacco Use Types Packs/Day Years [...] Comments Blood Pressure 148/72 09/26/2023 11:10 AM DIRECTOR BUILDING Pulse 90 09/26/2023 11:10 AM DIRECTOR BUILDING Temperature 36.6 ??C (97.8 ??F) 09/26/2023 1 1:10 AM DIRECTOR BUILDING Respiratory Rate 16 08/08/2016 10:0 7 AM CDT Value from [employer]. Oxygen Saturation - - Inhaled Oxygen Concentration - - Weight 64.2 kg (141 lb 8.6 oz) 09/26/2023 11:10 AM DIRECTOR BUILDING Height 167 cm (5' 5.75) 08/02/2016 8:0 0 PM CDT Body Mass Index 23.02 08/02/2016 8:00 PM CDT Plan of Treatment Health Maintenance Due Date Last Done Comments CT Colonography 1954 Cologuard 1955 Colonoscopy 1955 Colorectal Cancer Screening 1955 FIT 1954 Pneumococcal vaccine (65+ years) (2 of 2 - PCV) 05/08/2014 05/08/2013 Fasting Glucose for Diabetes Screening 08/06/2019 08/06/2016, 08/05/2016, 08/04/2016, Additional history exists Depression Screening (Annual PHQ-2) 11/18/2023 Fall Risk Screen (Annual) 11/18/2023 DTaP,Tdap,and Td Vaccines (3 - Td or Tdap) 08/16/2031 08/16/2021, 02/27/2012, 12/25/2005 Abdominal Aortic Aneurysm (AAA) Screen Discontinued 08/04/2016, 08/03/2016 Hepatitis C Screening Completed 08/07/2016 Zoster Vaccines Completed 12/10/2018, 09/18, 09/21/2014 COVID-19 Vaccine Completed 09/07/2023, , 12/05/2021, Additional history exists Influenza Vaccine Completed 09/07/2023, , 08/16/2021, Additional history exists HPV Vaccines Aged Out No longer eligi ble based on patient's age to complete this topic Procedures Procedure Name Priority Date/Time Associated Diagnosis Comments ARIA COURSE COMPLETE TREATMENT INFORMATION Routine 09/27/2023 10:53 AM DIRECTOR BUILDING [facility] T[facility]AT[facility] INFORMATION Routine 09/27/2023 10:53 AM DIRECTOR BUILDING [facility] T[facility]AT[facility] INFORMATION Routine 09/26/2023 10:59 AM DIRECTOR BUILDING [facility] TREATMENT INFORMATION Routine 09/25/2023 10:57 AM DIRECTOR BUILDING [facility] DAILY TREATMENT INFORMATION Routine 09/24/2023 8:43 AM DIRECTOR BUILDING [facility] DAILY TREATMENT INFORMATION Routine 09/23/2023 9:27 AM DIRECTOR BUILDING [facility] DAILY TREATMENT INFORMATION Routine 09/20/2023 9:20 AM CDT ARIA DAILY TREATMENT INFORMATION Routine 09/19/2023 10:11 AM CDT ARIA DAILY TREATMENT INFORMATION Routine 09/18/2023 10:49 AM CDT ARIA DAILY TREATMENT INFORMATION Routine 09/17/2023 10:33 AM CDT ARIA DAILY TREATMENT INFORMATION Routine 09/16/2023 8:14 AM CDT from Last 3 Months Results * Aria Course Complete Treatment Information (09/27/2023 10:53 AM DIRECTOR BUILDING) Course ID 1xLung STEVENSON ARIA Course Start Date 3 10:49 DIRECTOR BUILDING [facility] Course End Date 3 12:01 DIRECTOR BUILDING [facility] First Treatment Date 3 08:11 DIRECTOR BUILDING [facility] Last Treatment Date 3 10:53 DIRECTOR BUILDING [facility] Treatment Elapsed Days 11 STEVENSON ARIA Reference Point [id number] STEVENSON ARIA Dosage Given to Date cGy 3000 ST[facility]SON ARIA Plan ID [id number] [facility]EVENSON ARIA Fractions Treated to Date 10 STEVENSON ARIA Planned Total Fractions 10 STEVENSON ARIA Prescribed Dose Per Fraction 300 STEVENSON ARIA Prescription Dose in cGy 3000 STEVENSON ARIA Plan Primary Reference Point [id number] STEVENSON ARIA 09/27/2023 10:5 3 AM DIRECTOR BUILDING Provider Not In System RADIATION ONCOLOG Y ORDERABLES STEVENSON CELSOA na * Aria Daily Treatment Information (09/27/2023 10:53 AM DIRECTOR BUILDING) Only the most recent of10 resultswithin the time period is included. Course ID 1xLung STEVENSON ARIA Course Start Date 3 10:49 DIRECTOR BUILDING [facility]EVENSON ARIA First Treatment Date 3 08:11 DIRECTOR BUILDING [facility]EVENSON ARIA Last Treatment Date 3 10:53 DIRECTOR BUILDING [facility]EVEN[facility]A Treatment Elapsed Days 11 STEVENSON ARIA Reference Point [id number] STEVENSON ARIA Dosage Given to Date cGy 3000 STEVENSON ARIA Session Dosage Given 300 STEVNESON ARIA Plan ID [id number] [facility]EVENSON ARIA Fractions Treated to Date 10 STEVENSON ARIA Planned Total Fractions 10 STEVENSON ARIA Prescribed Dose Per Fraction 300 STEVENSON ARIA Prescription Dose in cGy 3000 STEVENSON ARIA Plan Primary Reference Point [id number] STEVENSON ARIA 09/27/2023 10:5 3 AM DIRECTOR BUILDING Provider Not In System RADIATION ONCOLOG Y ORDERABLES ELVA ARAGON na from Last 3 Months Care Teams Jewel Diameter Gauger Relationship Specialty Start Date End Date Elsewhere, Pcp PCP - General 12/07/19
--- OUTSIDE RECORDS SUMMARY | 2023-12-16 10:03 | XMS_ITS | Encounter Summary ---
Author Name Unknown Organization [facility] Address [address] [place] [address] Care Team Providers Care Commercial Green Building Architect Name Role Phone Elsewhere, Pcp Primary Care Provider Unavailabl e Encounter Details Date Type Department Care Team (Latest Contact Info) Description 09/16/2023 7:44 AM CDT - 09/16/2023 11:59 PM CDT Hospital Encounter Department of Radiation Oncology in [place], [place] [address] [place] [phone] Meghana Tay M.D. [address] [place] [address] Discharge Disposition: Home or Self Care Social [...] the tongue as needed. 0 08/02/2016 omega 1-ouq-tih-fish oil (fish oil) 1,000 mg (120 mg-180 [...] on filedocumented in this encounter Care Teams Commercial Green Building Architect Relationship Specialty Start Date End Date Elsewhere, Pcp PCP - General 12/07/19 documented as of this encounter
--- OUTSIDE RECORDS SUMMARY | 2023-12-16 10:03 | XMS_ITS | Encounter Summary ---
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 [address] [place] [address] [facility] Referral ID Status Reason Start Date Expiration Date Visits Re quested Visits Authorized [id number] Closed 06/04/2023 06/03/2024 1 1 Encounter Details Date Type Department Care Team (Latest Contact Info) Description 09/06/2023 1:37 PM CDT - 09/06/2023 11:59 PM CDT Hospital Encounter Department of Radiology, [facility], in [place], [place] [address] [place] [address] Leila Arteaga P.A.-C., P.A. 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 0 08/02/2016 omega 7-gmd-zrf-fish oil (fish oil) 1,000 mg (120 mg-180 mg) capsule Take 1 capsule by mouth daily. 0 08/02/2016 thiamine (VITAMIN B1) 100 mg tablet Take 1 tablet by mouth daily. 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 Resolution of previously noted small foci of restricted diffusion, consistent with evolution of small cortical infarcts. 2. Multiple small additional chronic cortical infarcts involving the frontal and parietal lobes bilaterally are unchanged as well as small chronic infarcts involving the left cerebellum, right basal ganglia/reagan radiata regions. 3. No acute infarcts on the current exam. 4. No evidence for metastatic disease. 5. Chronic microhemorrhage left frontal operculum. Narrative 09/06/2023 4:39 PM CDT EXAM: MR BRAIN WITHOUT AND WITH IV CONTRAST COMPARISON: 05/30/2023 outside brain MRI. FINDINGS: Previously noted small foci of restricted diffusion involving the left parietal lobe and left precentral gyrus are no longer visualized. No new areas of restricted diffusion. No underlying pathologic enhancement. Findings are consistent with evolution of small cortical infarcts. Multiple additional small foci of chronic-appearing cortical infarcts are noted in the left and right frontal and parietal lobes, unchanged. Small chronic infarcts in the left cerebellum and right basal ganglia/reagan radiata, unchanged. Mild to moderate cerebral atrophy and leukoaraiosis. Chronic microhemorrhage left frontal operculum better visualized due to technical differences. No mass lesions or pathologic enhancement identified. The major intracranial vascular flow voids are maintained. The orbits are unremarkable. Mild membrane thickening in the left maxillary sinus and left mastoid air cells. The pituitary gland is unremarkable. The calvarium and skull base are unremarkable. Procedure Note Chris Hernandez M.D. - 09/06/2023 EXAM: MR BRAIN WITHOUT AND WITH IV CONTRAST COMPARISON: 05/30/2023 outside brain MRI. FINDINGS: Previously noted small foci of restricted diffusion involvingthe left parietal lobe and left precentral gyrus are no longer visualized. No new areas of restricteddiffusion. No underlying pathologic enhancement. Findings are consistent with evolution of smallcortical infarcts. Multiple additional small foci of chronic-appearing cortical infarcts are noted inthe left and right frontal and parietal lobes, unchanged. Small chronic infarcts in the leftcerebellum and right basal ganglia/reagan radiata, unchanged. Mild to moderate cerebral atrophy andleukoaraiosis. Chronic microhemorrhage left frontal operculum better visualized due to technicaldifferences. No mass lesions or pathologic enhancement identified. The majorintracranial vascular flow voids are maintained. The orbits are unremarkable. Mild membrane thickening in theleft maxillary sinus and left mastoid air cells. The pituitary gland is unremarkable. The calvariumand skull base are unremarkable. IMPRESSION: 1. Resolution of previously noted small foci of restricted diffusion,consistent with evolution of small cortical infarcts. 2. Multiple small additional chronic cortical infarcts involving thefrontal and parietal lobes bilaterally are unchanged as well as small chronic infarcts involving theleft cerebellum, right basal ganglia/reagan radiata regions. 3. No acute infarcts on the current exam. 4. No evidence for metastatic disease. 5. Chronic microhemorrhage left frontal operculum. Jaki Ocasio P.A.-C. 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 Given 09/06/2023 2:51 PM CDT 6 mL documented in this encounter Care Teams Ad Operations Intern Relationship Specialty Start Date End Date Elsewhere, Pcp PCP - General 12/07/19 documented as of this encounter
--- OUTSIDE RECORDS SUMMARY | 2023-12-16 10:03 | XMS_ITS | Encounter Summary ---
Author Name Unknown Organization [facility] Address [address] [place] [address] Care Team Providers Care Respiratory Care Instructor Name Role Phone Elsewhere, Pcp Primary Care Provider Unavailabl e Encounter Details Date Type Department Care Team (Latest Contact Info) Description 09/20/2023 8:51 AM CDT - 09/20/2023 11:59 PM CDT Hospital Encounter Department of Radiation Oncology in [place], [place] [address] [place] [phone] Meghana Tay M.D. [address] [place] [address] Discharge Disposition: Home or Self Care Social [...] the tongue as needed. 0 08/02/2016 omega 6-xdh-quk-fish oil (fish oil) 1,000 mg (120 mg-180 [...] on filedocumented in this encounter Care Teams Respiratory Care Instructor Relationship Specialty Start Date End Date Elsewhere, Pcp PCP - General 12/07/19 documented as of this encounter
--- OUTSIDE RECORDS SUMMARY | 2023-12-16 10:03 | XMS_ITS | Encounter Summary ---
Author Name Unknown Organization [facility] Address [address] [place] [address] Care Team Providers Care Hairmasters Manager Name Role Phone Elsewhere, Pcp Primary Care Provider Unavailabl e Encounter Details Date Type Department Care Team (Late st Contact Info) Description 05/31/2023 Orders Only Department of Oncology in [place], [place] [address] [place] [phone] Leila Arteaga PAlexandru, P.A. 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 Indeterminate foci of signal abnormality in the left cerebral hemisphere as described, without associated edema or enhancement. Narrative 06/03/2023 3:19 PM CDT EXAM: ??INTERPRETATION OF OUTSIDE MR HEAD IV contrast from an outside institution dated 05/30/2023. COMPARISON: ??Noncontrast head CT 08/02/2016. FINDINGS: ?? There is a small 3 mm focus of increased signal on diffusion-weighted imaging within the paramedian left parietal lobe (series 3, image 41) which does not have clear associated signal dropout on ADC map. A similar punctate focus of increased signal on DWI within the left precentral gyrus is likely too small to characterize on ADC. There is notably no corresponding enhancement this site and no surrounding edema. Findings may indicate T2 shine through from chronic small vessel ischemic gliosis. No other areas of abnormal parenchymal or meningeal enhancement. Moderate leukoaraiosis with chronic lacunar infarcts in the bilateral basal ganglia and left cerebellum and scattered chronic cortical ischemia. Moderate generalized parenchymal volume loss. Major intracranial vascular flow voids are preserved. Minimal mucosal thickening in the lower maxillary sinuses. Trace fluid signal left mastoid tip. Procedure Note Deysi Kimble M.D. - 06/03/2023 EXAM: INTERPRETATION OF OUTSIDE MR HEAD IV contrast from an outsideinstitution dated 05/30/2023. COMPARISON: Noncontrast head CT 08/02/2016. FINDINGS: There is a small 3 mm focus of increased signal on diffusion-weightedimaging within the paramedian left parietal lobe (series 3, image 41) which does not have clearassociated signal dropout on ADC map. A similar punctate focus of increased signal on DWI within the leftprecentral gyrus is likely too small to characterize on ADC. There is notably no correspondingenhancement this site and no surrounding edema. Findings may indicate T2 shine through from chronicsmall vessel ischemic gliosis. No other areas of abnormal parenchymal or meningeal enhancement. Moderateleukoaraiosis with chronic lacunar infarcts in the bilateral basal ganglia and left cerebellum andscattered chronic cortical ischemia. Moderate generalized parenchymal volume loss. Major intracranialvascular flow voids are preserved. Minimal mucosal thickening in the lower maxillary sinuses.Trace fluid signal left mastoid tip. IMPRESSION: No convincing evidence for intracranial metastases. Indeterminate foci ofsignal abnormality in the left cerebral hemisphere as described, without associated edema orenhancement. Jaki Ocasio P.A.-C. 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
--- OUTSIDE RECORDS SUMMARY | 2023-12-16 10:03 | XMS_ITS | Encounter Summary ---
Author Name Unknown Organization [facility] Address [address] [place] [address] Care Team Providers Care Mixer Machine Feeder Name Role Phone Elsewhere, Pcp Primary Care Provider Unavailabl e Encounter Details Date Type Department Care Team (Late st Contact Info) Description 09/09/2023 Orders Only Department of Radiation Oncology in [place], [place] [address] [place] [phone] Meghana Tay M.D. [address] [place] [address] Social History Tobacco Use Types Packs/Day Years [...] on filedocumented in this encounter Care Teams Mixer Machine Feeder Relationship Specialty Start Date End Date Elsewhere, Pcp PCP - General 12/07/19 documented as of this encounter
--- OUTSIDE RECORDS SUMMARY | 2023-12-16 10:03 | XMS_ITS | Encounter Summary ---
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 [address] [place] [address] 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 [address] [place] [address] [facility] Region Referral ID Status Reason Start Date Expiration Date Visits Re quested Visits Authorized [id number] Closed 08/29/2023 08/28/2024 1 1 Encounter Details Date Type Department Care Team (Late st Contact Info) Description 08/29/2023 Orders Only Department of Radiation Oncology in [place], [place] [address] [place] [address] Lyudmila Bledsoe APRN, C.N.P., D.N.P. 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 09/09/2023 12:08 PM Initial Rad Onc Treatment Planning CT Simulation Performed by: Meghana Tay M.D. Authorized by: Meghana Tay M.D. ?? Meghana Tay M.D. 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
--- OUTSIDE RECORDS SUMMARY | 2023-12-16 10:03 | XMS_ITS | Encounter Summary ---
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 [address] [place] [address] [facility] Region Referral ID Status Reason Start Date Expiration Date Visits Re quested Visits Authorized [id number] Closed 08/29/2023 08/28/2024 1 1 Encounter Details Date Type Department Care Team (Latest Contact Info) Description 09/09/2023 10:53 AM CDT - 09/09/2023 12:41 PM CDT Hospital Encounter Department of Radiation Oncology in [address] [place] [address] Meghana Tay M.D. [address] [place] [address] Malignant Neoplasm Of Lung Small Cell Right [...] the tongue as needed. 0 08/02/2016 omega 0-hzb-xjb-fish oil (fish oil) 1,000 mg (120 mg-180 mg) capsule Take 1 capsule by mouth daily. 0 08/02/2016 omeprazole (PriLOSEC) [address] capsule Take 20 mg by mouth. 0 tamsulosin (FLOMAX) 0.4 mg 24 hr capsule 0 09/08/2023 thiamine (VITAMIN B1) 100 mg tablet Take 1 tablet by mouth daily. 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 Authorized by: Meghana Tay M.D. Simulation was performed under physician supervision based on physician order in preparation for radiation therapy. Physician was immediately available to provide assistance and direction throughout the procedure. Written consent for treatment was completed or confirmed. The patient was appropriately identified and placed in the treatment position using the necessary immobilization to ensure a reproducible treatment position. Reference bhatt were placed to facilitate marking of isocenter. Area scanned:Neck and Chest Contrast used for the simulation procedure: None Patient position:head first supine and arms up Custom immobilization: Vac-luís and Knee Cushion Motion management: 4D CT scan Bolus: No CT guidance: Following positioning of the patient, a series of slices was obtained to be utilized in treatment planning. CT images were transferred to the Eclipse treatment planning system, after a reference isocenter was determined and marked. Segmentation and treatment planning will take place prior to treatment delivery. Patient set up and imaging was appropriate and completed without incident. Greenhouse Transplanter use:No Associated attestation - Meghana Tay M.D. - 09/09/2023 12:41 PM CDT I was present during all critical and crump portions of the procedure(s) and immediately available [facility] the entire duration. See note for details. 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 09/09/2023 12:08 PM Initial Rad Onc Treatment Planning CT Simulation Performed by: Meghana Tay M.D. Authorized by: Meghana Tay M.D. ?? Meghana Tay M.D. 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
--- OUTSIDE RECORDS SUMMARY | 2023-12-16 10:03 | XMS_ITS | Encounter Summary ---
Author Name Unknown Organization [facility] Address [address] [place] [address] Care Team Providers Care Dinkey Engine Operator Name Role Phone Elsewhere, Pcp Primary Care Provider Unavailabl e Encounter Details Date Type Department Care Team (Latest Contact Info) Description 09/18/2023 9:44 AM CDT - 09/18/2023 11:59 PM CDT Hospital Encounter Department of Radiation Oncology in [place], [place] [address] [place] [phone] Meghana Tay M.D. [address] [place] [address] Discharge Disposition: Home or Self Care Social [...] the tongue as needed. 0 08/02/2016 omega 4-zst-fkz-fish oil (fish oil) 1,000 mg (120 mg-180 [...] on filedocumented in this encounter Care Teams Dinkey Engine Operator Relationship Specialty Start Date End Date Elsewhere, Pcp PCP - General 12/07/19 documented as of this encounter
--- OUTSIDE RECORDS SUMMARY | 2023-12-16 10:03 | XMS_ITS | Encounter Summary ---
Author Name Unknown Organization [facility] Address [address] [place] [address] Care Team Providers Care Electronic Security Specialist Name Role Phone Elsewhere, Pcp Primary Care Provider Unavailabl e Encounter Details Date Type Department Care Team (Latest Contact Info) Description 09/17/2023 9:53 AM CDT - 09/17/2023 11:59 PM CDT Hospital Encounter Department of Radiation Oncology in [place], [place] [address] [place] [phone] Meghana Tay M.D. [address] [place] [address] Discharge Disposition: Home or Self Care Social [...] the tongue as needed. 0 08/02/2016 omega 0-lkw-oof-fish oil (fish oil) 1,000 mg (120 mg-180 [...] on filedocumented in this encounter Care Teams Electronic Security Specialist Relationship Specialty Start Date End Date Elsewhere, Pcp PCP - General 12/07/19 documented as of this encounter
--- OUTSIDE RECORDS SUMMARY | 2023-12-16 10:03 | XMS_ITS | Encounter Summary ---
Author Name Unknown Organization [facility] Address [address] [place] [address] Care Team Providers Care Electrical Hardware Engineer Name Role Phone Elsewhere, Pcp Primary Care Provider Unavailabl e Encounter Details Date Type Department Care Team (Latest Contact Info) Description 09/19/2023 9:20 AM CDT - 09/19/2023 11:59 PM CDT Hospital Encounter Department of Radiation Oncology in [place], [place] [address] [place] [phone] Meghana Tay M.D. [address] [place] [address] Discharge Disposition: Home or Self Care Social [...] the tongue as needed. 0 08/02/2016 omega 5-wjf-hxc-fish oil (fish oil) 1,000 mg (120 mg-180 [...] on filedocumented in this encounter Care Teams Electrical Hardware Engineer Relationship Specialty Start Date End Date Elsewhere, Pcp PCP - General 12/07/19 documented as of this encounter
--- OUTSIDE RECORDS SUMMARY | 2023-12-16 10:03 | XMS_ITS | Encounter Summary ---
Author Name Unknown Organization [facility] Address [address] [place] [address] Care Team Providers Care Reception Centre Manager Name Role Phone Elsewhere, Pcp Primary Care Provider Unavailabl e Reason for Referral * MRI/CAT/PET Scan (Routine) - Closed Specialty Diagnoses / Procedures Referred By Contac t Referred To Contact Radiology Diagnoses Malignant Neoplasm Of Unspecified Part Of Lung Laterality Unknown Small Cell (HCC) Procedures MR Brain without and with IV Contrast Leila Arteaga P.A.-C., P.A. [address] [place] [phone] [facility] Referral ID Status Reason Start Date Expiration Date Visits Re quested Visits Authorized [id number] Closed 06/04/2023 06/03/2024 1 1 Encounter Details Date Type Department Care Team (Late st Contact Info) Description 06/04/2023 Orders Only Department of Oncology in [place], [place] [address] [place] [phone] Leila Arteaga P.A.-C., P.A. 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 5. Chronic microhemorrhage left frontal operculum. Leila Arteaga P.A.-C. 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
--- OUTSIDE RECORDS SUMMARY | 2023-12-16 10:03 | XMS_ITS | Encounter Summary ---
Author Name Unknown Organization [facility] Address [address] [place] [address] Care Team Providers Care Jumbo Operator Name Role Phone Elsewhere, Pcp Primary Care Provider Unavailabl e Reason for Referral * Radiation Therapy (Routine) - Authorized Specialty Diagnoses / Procedures Referred By Mruray baxter Referred To Contact Diagnoses Malignant Neoplasm Of Lung Small Cell Right (HCC) Procedures Prior Auth Rad Tx Meghana Tay M.D. [address] [place] [address] [facility] Referral ID Status Reason Start Date Expiration Date V isits Requested Visits Authorized [id number] Authorized 09/09/2023 09/08/2024 1 1 Reason for Visit * Appointment Request (Routine) - Closed Specialty Diagnoses / Procedures Referred By Murray baxter Referred To Contact Radiation Oncology Diagnoses Malignant Neoplasm Of Lung Small Cell Right (HCC) Maci Nascimento M.D. [address] [place] [address] Referral ID Status Reason Start Date Expiration Date Visits Re quested Visits Authorized [id number] Closed 08/29/2023 08/28/2024 1 1 Encounter Details Date Type Department Care Team (Latest Contact Info) Description 09/09/2023 9:40 AM CDT - 09/09/2023 10:52 AM CDT Hospital Encounter Department of Radiation Oncology in [place], [place] [address] [place] [phone] Meghana Tay M.D. [address] [place] [address] Malignant Neoplasm Of Lung Small Cell Right [...] Sign Reading Time Taken Comments Blood Pressure 119/73 09/09/2023 9:55 AM CDT Pulse 95 09/09/2023 9:55 AM CDT Temperature 36.4 ??C (97.6 ??F) 09/09/2023 9:55 AM CD T Respiratory Rate - - Oxygen Saturation - - Inhaled Oxygen Concentration - - Weight 64.8 kg (142 lb 13.7 oz) 09/09/2023 9:55 AM CDT Height - - Body Mass Index 23.23 08/02/2016 8:00 PM CDT documented in this [...] the tongue as needed. 0 08/02/2016 omega 2-buq-plh-fish oil (fish oil) 1,000 mg (120 mg-180 mg) capsule Take 1 capsule by mouth daily. 0 08/02/2016 omeprazole (PriLOSEC) [address] capsule Take 20 mg by mouth. 0 tamsulosin (FLOMAX) 0.4 mg 24 hr capsule 0 09/08/2023 thiamine (VITAMIN B1) 100 mg tablet Take 1 tablet by mouth daily. 0 08/07/2016 documented as of this encounter Consult Notes * Lyudmila Bledsoe APRN, C.N.P., D.N.P. - 09/09/2023 10:00 AM CDT SUBJECTIVE REQUESTING PROVIDER Maci Nascimento M.D. REASON FOR CONSULT 1. Malignant Neoplasm Of Lung Small Cell Right (HCC) SUPERVISED BY: Meghana Tay M.D. HISTORY OF PRESENT ILLNESS Mr. Cr Castrejon is a 68 y.o. male former smoker with extensive stage small-cell right lung cancer, who presents today for an opinion regarding the role of radiation therapy in the management of the patient's disease. His oncologic history is as follows: Oncology History Malignant Neoplasm Of Lung Small Cell Right (HCC) 03/05/2023 Other Patient being worked up for hypertension and intermittent claudication. Referred to vascular Medicine who ordered a CT angiogram as part of his workup. This demonstrated a thoracic mass. 03/25/[address] angio abdomen and pelvis demonstrated an indeterminate and incompletely imaged masslike structure measuring approximately 4.6 x 3.4 cm in the posterior mediastinum on the superior most slice of the study, unsure if mass extended more superiorly. Recommended further imaging with CT chest 04/12/[address] chest Findings: Lobular soft tissue along the right upper lobe bronchovascular tree measuring 2.9 x 1.5 cm. Multiple suspicious nodular densities within the periphery of the right upper lobe, measuring in total up to 2.2 cm. Scarring in the left lower lobe. Enlarged superior mediastinal lymph nodes are present measuring up to 1.3 cm. Enlarged precarinal lymph nodes noted measuring up to 1.3 cm. Bulky subcarinal lymphadenopathy measuring 5.0 x 4.5 cm accounting for the previous findings. Splaying of the shania also noted. Bulky right hilar lymphadenopathy measuring up to 3.8 cm. Normal axillary lymph nodes. No suspicious osseous lesion. 05/03/2023 Critical Imaging FDG PET-CT Impression: 1. Level III left cervical lymphadenopathy measuring 2 x 1.4 cm, SUVmax 8.8 2. Central right upper lung nodule, 2.5 x 1.5 cm, SUVmax 4.1 3. Cluster of several nodules and lateral right upper lung, 1.1 x 0.8 cm, SUVmax 5.3 4. Hypermetabolic right hilar lymphadenopathy, 3.8 x 3.4 cm 5. Subcarinal lymphadenopathy, 7.6 x 4.8 cm, SUVmax 12.6 6. Medial right supraclavicular lymphadenopathy, 3.5 x 2.9 cm, SUVmax 11.1 05/23/2023 Biopsy/Pathology Final Diagnosis A) LYMPH NODE, STATION 4L, LOWER PARATRACHEAL, ENDOBRONCHIAL ULTRASOUND-GUIDED FINE-NEEDLE ASPIRATION: 1. Positive for malignancy, small cell carcinoma 2. See comment B) LYMPH NODE, STATION 7, SUBCARINAL, ENDOBRONCHIAL ULTRASOUND-GUIDED FINE- NEEDLE ASPIRATION: 1. Positive for malignancy, small cell carcinoma 2. See comment C) LYMPH NODE, STATION 4R, LOWER PARATRACHEAL, ENDOBRONCHIAL ULTRASOUND-GUIDED FINE-NEEDLE ASPIRATION: 1. Positive for malignancy, small cell carcinoma 2. See comment D) LYMPH NODE, STATION 11 R, INTERLOBAR, ENDOBRONCHIAL ULTRASOUND-GUIDED FINE- NEEDLE ASPIRATION: 1. Positive for malignancy, small cell carcinoma 2. See comment 05/30/2023 Critical Imaging Interpretation of outside MR head IMPRESSION: No convincing evidence for intracranial metastases. Indeterminate 3 mm foci of signal abnormality in the left cerebral hemisphere as described, without associated edema or enhancement. 06/03/2023 - 08/07/2023 Chemotherapy Completed 4 cycles Carboplatinum/etoposide/atezolizumab under the care of Dr. Nascimento, [facility] 08/21/2023 Critical Imaging FDG PET-CT IMPRESSION: 1. Neither the 9 mm right lower lobe subpleural-based pulmonary nodule, nor the 9 mm cavitary pulmonary nodule in the right upper lung are hypermetabolic on today's PET CT. 2. Mildly hypermetabolic right hilar and subcarinal lymph nodes, suspicious. 3. Otherwise no PET CT evidence for metastatic disease elsewhere 09/06/2023 Critical Imaging Brain MRI negative for metastatic disease 09/16/2023 - Radiation Therapy Radiation Therapy Treatment Details (Noted on 08/29/2023) Site: Right Lung Technique: No technique specified Goal: Palliative Planned Treatment Start Date: 09/16/2023 09/17/2023 - Chemotherapy Scheduled to begin maintenance atezolizumab under the care of Dr. Nascimento INTERVAL HISTORY The patient was seen and examined today with Dr. Tay. The patient reports feeling well overall. His energy is slowly improving following chemotherapy completed approximately 1 month ago. He does experience shortness of breath with significant exertion, which may include going up hills or taking heavy objects upstairs. He does have to rest after walking for some time but that is due to pain in his legs than it is shortness of breath. He does experience occasional cough, this was much worse prior to diagnosis and with the 1st couple rounds of chemo.He currently takes 1 tablet Tessalon Perles and cough syrup every day and finds this helpful. He denies any hemoptysis. He denies any chest pain or tightness. He denies any fevers. He reports his weight is up and stable following chemotherapy. The patient denies a history of prior radiation therapy, connective tissue disorders, or inflammatory bowel disease. The patient denies any implanted devices. His ECOG performance status is 0. REVIEW OF SYSTEMS Review of systems was negative except as documented above. 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 No pertinent family history. SOCIAL HISTORY Social History Socioeconomic History Marital status: Single Number of children: 4 Tobacco Use Smoking status: Former Packs/day: 3.00 Types: Cigarettes Quit date: 2015 Years since quittin.8 Smokeless tobacco: Never Vaping Use Vaping Use: never used Substance and Sexual Activity Alcohol use: Yes Alcohol/week: 2.0 standard drinks of alcohol Types: 2 Glasses of wine per week Comment: every other day OBJECTIVE BP 119/73 (BP Location: Right arm, Patient Position: Sitting, Cuff Size: Regular) Pulse 95 Temp36.4 ??C (Temporal) Wt 64.8 kg BMI 23.23 kg/m?? PHYSICAL EXAM GENERAL: Alert and oriented in no apparent distress. Neck: Supple. Lymph: No palpable cervical, supraclavicular, infraclavicular, or axillary adenopathy. Lungs: Clear to auscultation bilaterally. Heart: Regular rate and rhythm. Normal S1 and S2. ASSESSMENT / PLAN #1 Extensive stage small-cell lung cancer (cT3 N3 M1c), s/p 4 cycles chemotherapy, last infusion August 07, 2023 It was a pleasure to meet with Cr and his children, Ana, today. I had a discussion with them regarding his extensive stage small-cell lung cancer diagnosis. We also had a detailed discussion regarding the risks, benefits, and alternatives of radiotherapy in this setting. We discussed the recommendation for consolidative radiation treatment to the right hilar and subcarinal lymph nodes in 10 fractions. I discussed the logistics as well as the acute and chronic side effects of radiotherapy. The acute side effects may include, but are not limited to, fatigue, shortness of breath, skin irritation, cough, pain and/or difficulty with swallowing with a rare need for hospitalization. A delayed side effect could include radiation pneumonitis or chest wall pain. Long-term side effects can be rare and may include, but not limited to, heart damage (with left-sided treatment), ulceration or narrowing of the esophagus, broken rib, hemorrhage of a blood vessel that could be fatal, spinal cord damage, chronic shortness of breath for bronchial collapse, chronic chest wall pain, or secondary malignancy. The patient was provided with a written summary of recommendations. His questions were answered to his verbalized satisfaction. I also reviewed the results of his brain MRI from last week that was negative for metastatic disease. After discussion, the patient verbally stated that he would like to proceed with treatment. He willundergo CT simulation today. We will plan to initiate radiation therapy on September 16. Patient seen in collaboration with Dr. Tay, please review her attestation for additional information. The patient was provided with our contact information. He was asked to contact us with questions or concerns. He verbally expressed his understanding of the plan. EDUCATION Ready to learn, no apparent learning barriers were identified; learning preferences include listening. Explained diagnosis and treatment plan; patient expressed understanding of the content. CONSENT Discussed the risks, benefits, alternatives, and the necessity of other members of the healthcare team participating in the procedure. All questions answered and consent given. PRIMARY PROVIDER Jez Burnham MD I personally spent 60 minutes in care of the patient today. Time includes both non face to face andface to face patient care. Signed by: Lyudmila Bledsoe APRN, C.N.P., D.N.P. 09/09/2023 10:56 AM CDT [facility] [address] [place] [place] [address] Associated attestation - Meghana Tay M.D. - 09/09/2023 1:01 PM CDT RADIATION ONCOLOGY CONSULT I saw and evaluated the patient and participated in the crump portions of the service. I reviewed thedocumentation of Ms. Lyudmila Bledsoe APRN and agree with the findings and plan. Please see Ms. Bledsoe's detailed note for the patient's initial presentation and work-up. Briefly, Mr. Cr Castrejon is a very pleasant 68 year old former smoker who has extensive stage small cell lung cancer who has had a nice response to chemotherapy and presents to discuss consolidation radiation therapy.I have reviewed his imaging, operative and pathology reports. He initially had bilateral neck disease and two pulmonary nodules. He has residual PET avidity in his bulkiest site of initial disease - subcarina and right hilum. On exam, he appears well. We discussed the findings above and below in this note with the patient and his family (daughter inperson and son on the phone). We discussed his treatment alternatives and I would recommend consolidation of the two remaining PET positive sites of disease and we would watch the neck. We also discussed prophylactic cranial irradiation, but I would not recommend this for PCI and would recommend ongoing brain MRIs ever three months. We discussed the rationale, risks, side effects and palliative goals of radiation therapy. We discussed the acute as well as penitentiary risks, including, but not limited to fatigue, skin erythema, bowel/bladder changes (if we would include bowel which is unlikely), bone health, and risk of bone fracture and radiation pneumonitis in the future. They understood and their questions were answered and he wished to proceed with treatment. We tentatively plan on delivering 3000 cGy in 10 fractions starting September 16, 2023. I'm fine with him receiving his immunotherapy treatment during the radiation. My thanks to Seda and Tej for the opportunity to participate in this patient's care. EDUCATION Ready to learn, no apparent learning barriers were identified; learning preferences include listening. Explained diagnosis and treatment plan; patient expressed understanding of the content. CONSENT Discussed the risks, benefits, alternatives, and the necessity of other members of the healthcare team participating in the procedure. All questions answered and consent given. DIAGNOSIS #1 Extensive stage small-cell lung cancer (cT3 N3 M1c), s/p 4 cycles chemotherapy, last infusion August 07, 2023 Signed by: Meghana Tay M.D. 09/08/2023 9:37 AM CDT Radiation Oncology [facility] [address] [place], [place] [id number] documented in this encounter Plan of Treatment Scheduled Orders Name Type Priority Associated Diagnoses Orde r Schedule Prior Auth Rad Tx Radiation Oncology Routine Malignant Neoplasm Of Lung Small Cell Right (HCC) Ordered: 09/09/2023 documented as of this encounter Visit Diagnoses Diagnosis Malignant Neoplasm Of Lung Small Cell Right (HCC)- Primary documented in this encounter Care Teams Jumbo Operator Relationship Specialty Start Date End Date Elsewhere, Pcp PCP - General 12/07/19 documented as of this encounter
--- OUTSIDE RECORDS SUMMARY | 2023-12-16 10:03 | XMS_ITS | Encounter Summary ---
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 [address] [place] [address] [facility] Referral ID Status Reason Start Date Expiration Date Visits Re quested Visits Authorized [id number] Closed 08/05/2023 08/04/2024 1 1 Encounter Details Date Type Department Care Team (Latest Contact Info) Description 08/21/2023 8:56 AM CDT - 08/21/2023 11:59 PM CDT Hospital Encounter Department of Radiology in [place], [place] [address] [place] [phone] Maci Nascimento M.D. [address] [facility] [place] [phone] Malignant Neoplasm Of Unspecified Part Of Lung [...] the tongue as needed. 0 08/02/2016 omega 0-xto-ghj-fish oil (fish oil) 1,000 mg (120 mg-180 mg) capsule Take 1 capsule by mouth daily. 0 08/02/2016 thiamine (VITAMIN B1) 100 mg tablet Take 1 tablet by mouth daily. 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 ??Neither the 9 mm right lower lobe subpleural-based pulmonary nodule, nor the 9 mm cavitary pulmonary nodule in the right upper lung are hypermetabolic on today's PET CT. 2. ?? Mildly hypermetabolic right hilar and subcarinal lymph nodes, suspicious. 3. ??Otherwise no PET CT evidence for metastatic disease elsewhere Narrative 08/21/2023 11:55 AM CDT EXAM: PET CT WHOLE BODY FDG COMPARISON: None. Correlation with CT angiogram of the abdomen and pelvis and bilateral lower extremity runoff INDICATION: Small cell lung cancer, response to treatment. Initial treatment strategy. F-[address] scan was performed from the vertex through the toes with CT fusion imaging for attenuation correction, anatomic coregistration, and respiratory gating only. Serum glucose at time of F-18 FDG injection: 116 mg/dL. Uptake time: 60 minutes following injection. The patient reports no recent vaccinations. FINDINGS: Head/Neck: No suspicious hypermetabolic foci. Chest: Mildly hypermetabolic right hilar lymph node with maximum SUV measuring 2.91 centered on image 116 of series 4/3. There is mild hypermetabolism associated with the subcarinal region, image 114 through 126 of series 4/3, maximum SUV measuring 2.81. Background internal control mediastinal uptake measures 2.10 Abdomen/Pelvis: No suspicious hypermetabolic foci. Uptake in liver is greater than background but with no CT equivalent finding demonstrated. Physiologic uptake demonstrated in bowel Skeleton: No suspicious hypermetabolic foci. Extremities: No suspicious hypermetabolic foci. Other Findings: When compared to CT scan of the abdomen and pelvis and bilateral leg runoff study 03/25/2023 there is a new right lower lobe pulmonary nodule that measures 9 mm in size on image 142 of series 3, however it is not hypermetabolic. In addition there is a nonhypermetabolic 9 mm right upper lung cavitary pulmonary nodule on image 97 of series 4/3 There is no pneumothorax. No acute airspace opacity is observed. Gallstones layering dependently in the gallbladder. Aortoiliac atherosclerotic changes observed. RADIOPHARMACEUTICAL/MEDS: Route: intravenous fludeoxyglucose F 18 injection ALF (FDG F-18),13.2 millicurie Procedure Note True Fernandes M.D. - 08/21/2023 EXAM: PET CT WHOLE BODY FDG COMPARISON: None. Correlation with CT angiogram of the abdomen and pelvisand bilateral lower extremity runoff INDICATION: Small cell lung cancer, response to treatment. Initialtreatment strategy. F-[address] scan was performed from the vertex through the toes withCT fusion imaging for attenuation correction, anatomic coregistration, and respiratory gatingonly. Serum glucose at time of F-18 FDG injection: 116 mg/dL. Uptake time: 60 minutes following injection. The patient reports no recent vaccinations. FINDINGS: Head/Neck: No suspicious hypermetabolic foci. Chest: Mildly hypermetabolic right hilar lymph node with maximum SUVmeasuring 2.91 centered on image 116 of series 4/3. There is mild hypermetabolism associated with thesubcarinal region, image 114 through 126 of series 4/3, maximum SUV measuring 2.81. Backgroundinternal control mediastinal uptake measures 2.10 Abdomen/Pelvis: No suspicious hypermetabolic foci. Uptake in liver isgreater than background but with no CT equivalent finding demonstrated. Physiologic uptakedemonstrated in bowel Skeleton: No suspicious hypermetabolic foci. Extremities: No suspicious hypermetabolic foci. Other Findings: When compared to CT scan of the abdomen and pelvis andbilateral leg runoff study 03/25/2023 there is a new right lower lobe pulmonary nodule that measures 9mm in size on image 142 of series 3, however it is not hypermetabolic. In addition there is anonhypermetabolic 9 mm right upper lung cavitary pulmonary nodule on image 97 of series 4/3 There is nopneumothorax. No acute airspace opacity is observed. Gallstones layering dependently in thegallbladder. Aortoiliac atherosclerotic changes observed. RADIOPHARMACEUTICAL/MEDS: Route: intravenous fludeoxyglucose F 18 injection ALF (FDG F-18),13.2 millicurie IMPRESSION: 1. Neither the 9 mm right lower lobe subpleural-based pulmonary nodule,nor the 9 mm cavitary pulmonary nodule in the right upper lung are hypermetabolic on today's PETCT. 2. Mildly hypermetabolic right hilar and subcarinal lymph nodes,suspicious. 3. 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
--- OUTSIDE RECORDS SUMMARY | 2023-12-16 10:03 | XMS_ITS | Encounter Summary ---
Author Name Unknown Organization [facility] Address [address] [place] [address] Care Team Providers Care Oil And Gas Superintendent Name Role Phone Elsewhere, Pcp Primary Care Provider Unavailabl e Reason for Referral * Radiation Therapy (Routine) - Authorized Specialty Diagnoses / Procedures Referred By Murray baxter Referred To Contact Diagnoses Malignant Neoplasm Of Lung Small Cell Right (HCC) Procedures Management Visit Meghana Tay M.D. [address] [place] [address] [facility] Region Referral ID Status Reason Start Date Expiration Date V isits Requested Visits Authorized [id number] Authorized 08/29/2023 08/28/2024 10 10 Reason for Visit * Radiation Therapy (Routine) - Authorized Specialty Diagnoses / Procedures Referred By Murray baxter Referred To Contact Diagnoses Malignant Neoplasm Of Lung Small Cell Right (HCC) Procedures Management Visit Meghana Tay M.D. [address] [place] [address] [facility] Region Referral ID Status Reason Start Date Expiration Date V isits Requested Visits Authorized [id number] Authorized 08/29/2023 08/28/2024 10 10 Encounter Details Date Type Department Care Team (Latest Contact Info) Description 09/17/2023 9:53 AM CDT - 09/17/2023 5:41 PM CDT Hospital Encounter Department of Radiation Oncology in [address] [phone] Meghana Tay M.D. [address] [place] [address] Malignant Neoplasm Of Lung Small Cell Right [...] Sign Reading Time Taken Comments Blood Pressure 153/77 09/17/2023 10:40 AM CDT Pulse 87 09/17/2023 10:40 AM CDT Temperature 36.4 ??C (97.5 ??F) 09/17/2023 10:40 AM C DT Respiratory Rate - - Oxygen Saturation - - Inhaled Oxygen Concentration - - Weight 64.5 kg (142 lb 3.2 oz) 09/17/2023 10:40 AM CDT Height - - Body Mass Index 23.13 08/02/2016 8:00 PM CDT documented in this [...] the tongue as needed. 0 08/02/2016 omega 7-tfg-uwa-fish oil (fish oil) 1,000 mg (120 mg-180 [...] Progress Notes * Meghana Tay M.D. - 09/17/2023 10:30 AM CDT ATTESTATION FOR MANAGEMENT VISIT I saw and evaluated the patient and participated in the crump portions of the service as noted below.I reviewed the documentation of Ms. Lynn Cooper RN and agree with the findings and plan. The patient appears well on exam. We will continue with radiation as planned and monitor weekly. Meghana Tay M.D., 09/17/2023 SUBJECTIVE REASON FOR VISIT Evaluation for side effects while receiving radiation treatment for 1. Malignant Neoplasm Of Lung Small Cell Right (HCC) SUPERVISED BY: Meghana Tay M.D. HISTORY OF PRESENT ILLNESS Mr. Cr Castrejon is a 68 y.o. male with smoker with extensive stage small-cell right lung cancer. He is now undergoing radiation therapy. Treatment Course: 1xLung Plan ID Fractions Dose / Fraction (cGy) Dose Treated (cGy) Dose Planned (cGy) First Treatment Last Treatment Elapsed Days [id number] [phone] 09/16/2023 09/17/2023 1 Course Summary 09/16/2023 09/17/2023 1 The patient was seen and examined today with Dr. Tay. The patient reports that he is doing well. He is no longer taking tessalon pearls. He feels cough has improved overall. He takes cough syrup as needed. He denies fevers or shortness of breath. PATIENT REPORTED SYMPTOM SCREEN FATIGUE (Scale: 0 = no fatigue; 10 = worst fatigue you can imagine): 2 PAIN (Scale: 0 = no pain; 10 = worst pain you can imagine): 2 OVERALL QUALITY OF LIFE (Scale: 0 = as bad as can be; 10 = as good as can be): 9 OBJECTIVE BP 153/77 (BP Location: Right arm, Patient Position: Sitting, Cuff Size: Regular) Pulse 87 Temp36.4 ??C (Temporal) Wt 64.5 kg BMI 23.13 kg/m?? PHYSICAL EXAM General: Alert and oriented [...] patient is tolerating radiation treatment well overall. Patient states he received IV fluids yesterday and [facility] at [facility]. He will contact us with any questions or concerns. Wewill continue with radiation treatment as planned. Signed by: Lynn Cooper R.N. 09/17/2023 12:58 PM CDT documented in this encounter Plan of Treatment Scheduled Orders Name Type Priority Associated Diagnoses Orde r Schedule Management Visit Radiation Oncology Routine Malignant Neoplasm Of Lung Small Cell Right (HCC) Once for 1 Occurrences starting 09/17/2023 until 09/17/2023 documented as of this encounter Visit Diagnoses Diagnosis Malignant Neoplasm Of Lung Small Cell Right (HCC) documented in this encounter Care Teams Oil And Gas Superintendent Relationship Specialty Start Date End Date Elsewhere, Pcp PCP - General 12/07/19 documented as of this encounter
--- OUTSIDE RECORDS SUMMARY | 2023-12-16 10:03 | XMS_ITS | Encounter Summary ---
Author Name Unknown Organization [facility] Address [address] [place] [address] Care Team Providers Care Accounts Payable Specialist Name Role Phone Elsewhere, Pcp Primary Care Provider Unavailabl e Encounter Details Date Type Department Care Team (Late st Contact Info) Description 05/30/2023 Orders Only Department of Oncology in [place], [place] [address] [place] [phone] Leila Arteaga PKaren., P.A. [address] [place] [phone] Social History Tobacco Use Types Packs/Day Years [...] on filedocumented in this encounter Care Teams Accounts Payable Specialist Relationship Specialty Start Date End Date Elsewhere, Pcp PCP - General 12/07/19 documented as of this encounter
--- OUTSIDE RECORDS SUMMARY | 2023-12-16 10:03 | XMS_ITS | Encounter Summary ---
Author Name Unknown Organization [facility] Address [address] [place] [address] Care Team Providers Care Scullion Chief Name Role Phone Elsewhere, Pcp Primary Care Provider Unavailabl e Encounter Details Date Type Department Care Team (Latest Contact Info) Description 05/31/2023 4:37 PM CDT - 05/31/2023 11:59 PM CDT Hospital Encounter Department of Radiology in [place], [place] [address] [place] [address] Leila Arteaga, P.AFelicia-Derrick., P.A. [address] [place] [address] Malignant Neoplasm Of Unspecified Part [...] Take 40 mg by mouth. 0 07/25/2012 bismuth subsalicylate (PEPTO BISMOL) 262 mg tablet Take 2 tablets by mouth. 0 08/10/2022 cholecalciferol (VITAMIN D3) 10 mcg (400 Unit) tablet daily. 0 08/16/2021 folic acid 1 mg tablet Take 1 tablet by mouth daily. 0 05/17/2015 metoprolol succinate (TOPROL-XL) 25 mg 24 hr tablet 0 08/07/2016 multivitamin tablet Take 1 tablet by mouth daily. 0 08/02/2016 nitroglycerin (NITROSTAT) 0.[address] 1 tablet under the tongue as needed. 0 08/02/2016 omega 4-mpn-qtm-fish oil (fish oil) 1,000 mg (120 mg-180 mg) capsule Take 1 capsule by mouth daily. 0 08/02/2016 thiamine (VITAMIN B1) 100 mg tablet Take 1 tablet by mouth daily. 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 Leila Arteaga P.A.-C. P.A. 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
--- OUTSIDE RECORDS SUMMARY | 2023-12-16 10:04 | XMS_ITS | Encounter Summary ---
Author Name Unknown Organization [facility] Address [address] [place] [address] Care Team Providers Care Cath Lab Name Role Phone Elsewhere, Pcp Primary Care Provider Unavailabl e Encounter Details Date Type Department Care Team (Late st Contact Info) Description 05/30/2023 Orders Only Department of Oncology in [place], [place] [address] [place] [phone] Cony Bronson M.D. [address] [place] [address] Social History Tobacco Use Types Packs/Day Years [...] on filedocumented in this encounter Care Teams Cath Lab Relationship Specialty Start Date End Date Elsewhere, Pcp PCP - General 12/07/19 documented as of this encounter
--- NOTE | 2023-12-16 10:15 | CRLHL7_ITS ---
For Patients: As a result of the Century Cures Act, medical imaging exams and procedure reports are released immediately into your electronic medical record. You may view this report before your referring provider. If you have questions, please contact your health care provider. INDICATION: Lung cancer. TECHNIQUE: Multiplanar multisequence MR imaging of the brain prior to and following intravenous contrast. COMPARISON: MRI brain 05/30/2023. FINDINGS: Prominence of the ventricles and sulci compatible with mild diffuse cerebral volume loss. No mass effect or midline shift. Stable scattered FLAIR hyperintensities in the supratentorial white matter, typical for mild chronic microvascular ischemic changes. 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 No pathologic intracranial enhancement. No intracranial hemorrhage or pathologic extra-axial fluid collection. No diffusion restriction to suggest acute infarction. The major arterial flow voids of the skullbase are preserved. The globes are symmetric. Jeah-hj-fgigjycp left maxillary sinus mucosal thickening. Small left mastoid effusion. IMPRESSION: No acute intracranial abnormality or evidence for intracranial metastatic disease. Dictated by Jim Mai MD @ 12/16/2023 7:31:35 PM (Electronically Signed)
== END 2023-12-16 09:55 | disposition home or self-care (01) ==
LOC: MRI 09:55
PROVIDERS: PCP Family Medicine; Visit Provider Internal Medicine Hematology & Oncology
DX: C34.90 Malignant neoplasm of unspecified part of unspecified bronchus or lung (principal)
CPT/HCPCS: 70553; A9575

== ENCOUNTER 2023-12-19 13:29 | Outpatient (CLI) | payer MEDICARE, BC, SELFPAY ==
--- OUTSIDE RECORDS SUMMARY | 2023-12-19 13:33 | XMS_ITS | Encounter Summary ---
Author Name Unknown Organization [facility] Address [address] [place] [address] Care Team Providers Care Mixing Machine Tender Cork Rod Name Role Phone Elsewhere, Pcp Primary Care Provider Unavailabl e Encounter Details Date Type Department Care Team (Late st Contact Info) Description 09/27/2023 Documentation Department of Radiation Oncology in [place], [place] [address] [place] [phone] Meghana Tay M.D. [address] [place] [address] Social History Tobacco Use Types Packs/Day Years [...] (cGy) First Treatment Last Treatment Elapsed Days [id number] [phone] 09/16/2023 09/27/2023 11 Course [...] by: Veronika Faustin R.N., 10/01/2023 3:36 PM GENERAL FARM HAND [facility] [address] [place] [address] RAL FARM HAND documented in this encounter Plan of Treatment Not on file documented as of this encounter Visit Diagnoses Diagnosis Malignant Neoplasm Of Lung Small Cell Right (HCC)- Primary documented in this encounter Care Teams Mixing Machine Tender Cork Rod Relationship Specialty Start Date End Date Elsewhere, Pcp PCP - General 12/07/19 documented as of this encounter
--- OUTSIDE RECORDS SUMMARY | 2023-12-19 13:33 | XMS_ITS | Encounter Summary ---
Author Name Unknown Organization [facility] Address [address] [place] [address] Care Team Providers Care Scalp Treatment Specialist Name Role Phone Elsewhere, Pcp Primary Care Provider Unavailabl e Encounter Details Date Type Department Care Team (Latest Contact Info) Description 09/26/2023 10:24 AM STACK CLERK - 09/26/2023 11:59 PM [facility] Hospital Encounter Department of Radiation Oncology in [place], [place] [address] [place] [phone] Meghana Tay M.D. [address] [place] [address] Discharge Disposition: Home or Self Care Social [...] the tongue as needed. 0 08/02/2016 omega 8-qfd-wmq-fish oil (fish oil) 1,000 mg (120 mg-180 [...] on filedocumented in this encounter Care Teams Scalp Treatment Specialist Relationship Specialty Start Date End Date Elsewhere, Pcp PCP - General 12/07/19 documented as of this encounter
--- OUTSIDE RECORDS SUMMARY | 2023-12-19 13:33 | XMS_ITS | Clinical Summary ---
Author Name Unknown Organization [facility] Address [address] [place] [address] Care Team Providers Care Manager Research And Development Name Role Phone Elsewhere, Pcp Primary Care Provider Unavailabl e Source Comments Patient records contain information from all sites at [facility]. For routine questions regarding patient records, call [phone] during business hours, M-F 8:00 AM - 5:00 PM Central Time. Record requests for emergency care only can be directed to [phone] at any time.[facility] Allergies No known active allergies Medications Medication [...] mg by mouth. 0 07/28/2023 Active omega 7-ahf-jup-fish oil (fish oil) 1,000 mg (120 mg-180 mg) capsule Take 1 capsule by mouth daily. 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 09/27/2023 10:26 AM CAR COOPER - 09/27/2023 11:59 PM CAR COOPER Hospital Encounter Department of Radiation Oncology in [address] [address] Meghana Tay M.D. Discharge Disposition: Home or Self Care 09/27/2023 Documentation Department of Radiation Oncology in [address] [address] Meghana Tay M.D. 09/26/2023 10:24 AM CAR COOPER - 09/26/2023 4:10 PM CAR COOPER Hospital Encounter Department of Radiation Oncology in [address] [address] Meghana Tay M.D. 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 Discharge Disposition: Home or Self Care 09/25/2023 10:26 AM CAR COOPER - 09/25/2023 11:59 PM CAR COOPER Hospital Encounter Department of Radiation Oncology in [address] [address] Meghana Tay M.D. Discharge Disposition: Home or Self Care 09/24/2023 8:24 AM CAR COOPER - 09/24/2023 11:59 PM CAR COOPER Hospital Encounter Department of Radiation Oncology in [address] [address] Meghana Tay M.D. Discharge Disposition: Home or Self Care 09/23/2023 9:00 AM CAR COOPER - 09/23/2023 11:59 PM CAR COOPER Hospital Encounter Department of Radiation Oncology in [address] [address] Meghana Tay M.D. Discharge Disposition: Home or Self Care 09/20/2023 8:51 AM CDT - 09/20/2023 11:59 PM CDT Hospital Encounter Department of Radiation Oncology in [address] [address] Meghana Tay M.D. Discharge Disposition: Home or Self Care 09/19/2023 9:20 AM CDT - 09/19/2023 11:59 PM CDT Hospital Encounter Department of Radiation Oncology in [address] [address] Meghana Tay M.D. Discharge Disposition: Home or Self Care 09/18/2023 9:44 AM CDT - 09/18/2023 11:59 PM CDT Hospital Encounter Department of Radiation Oncology in [address] [address] Meghana Tay M.D. Discharge Disposition: Home or [...] Comments Blood Pressure 148/72 09/26/2023 11:10 AM CAR COOPER Pulse 90 09/26/2023 11:10 AM CAR COOPER Temperature 36.6 ??C (97.8 ??F) 09/26/2023 1 1:10 AM CAR COOPER Respiratory Rate 16 08/08/2016 10:0 7 AM CDT Value from [employer]. Oxygen Saturation - - Inhaled Oxygen Concentration - - Weight 64.2 kg (141 lb 8.6 oz) 09/26/2023 11:10 AM CAR COOPER Height 167 cm (5' 5.75) 08/02/2016 8:0 [...] COMPLETE TREATMENT INFORMATION Routine 09/27/2023 10:53 AM CAR COOPER ARIA DAILY TREATMENT INFORMATION Routine 09/27/2023 10:53 AM CAR COOPER ARIA DAILY TREATMENT INFORMATION Routine 09/26/2023 10:59 AM CAR COOPER ARIA DAILY TREATMENT INFORMATION Routine 09/25/2023 10:57 AM CAR COOPER ARIA DAILY TREATMENT INFORMATION Routine 09/24/2023 8:43 AM CAR COOPER ARIA DAILY TREATMENT INFORMATION Routine 09/23/2023 9:27 AM CAR COOPER ARIA DAILY TREATMENT INFORMATION Routine 09/20/2023 9:20 AM CDT ARIA DAILY TREATMENT INFORMATION Routine 09/19/2023 10:11 AM CDT ARIA DAILY TREATMENT INFORMATION Routine 09/18/2023 10:49 AM CDT from Last 3 Months Results * Aria Course Complete Treatment Information (09/27/2023 10:53 AM CAR COOPER) Course ID 1xLung STEVENSON ARIA Course Start Date 3 10:49 CAR COOPER STEVENSON ARIA Course End Date 3 12:01 CAR COOPER STEVENSON ARIA First Treatment Date 3 08:11 CAR COOPER STEVENSON ARIA Last Treatment Date 3 10:53 CAR COOPER STEVENSON ARIA Treatment Elapsed Days 11 STEVENSON ARIA Reference Point [id number] STEVENSON ARIA Dosage Given to Date cGy 3000 STEVENSON ARIA Plan ID [id number] STEVENSON ARIA Fractions Treated to Date 10 STEVENSON ARIA Planned Total Fractions 10 STEVENSON ARIA Prescribed Dose Per Fraction 300 STEVENSON ARIA Prescription Dose in cGy 3000 STEVENSON ARIA Plan Primary Reference Point [id number] STEVENSON ARIA 09/27/2023 10:5 3 AM CAR COOPER Provider Not In System RADIATION ONCOLOG Y ORDERABLES STEVENSON MARGO na * Aria Daily Treatment Information (09/27/2023 10:53 AM CAR COOPER) Only the most recent of8 resultswithin the time period is included. Course ID 1xLung STEVENSON ARIA Course Start Date 3 10:49 CAR COOPER STEVENSON ARIA First Treatment Date 3 08:11 CAR COOPER STEVENSON ARIA Last Treatment Date 3 10:53 CAR COOPER STEVENSON ARIA Treatment Elapsed Days 11 STEVENSON ARIA Reference Point [id number] STEVENSON ARIA Dosage Given to Date cGy 3000 STEVENSON ARIA Session Dosage Given 300 STEVENSON ARIA Plan ID [id number] STEVENSON ARIA Fractions Treated to Date 10 STEVENSON ARIA Planned Total Fractions 10 STEVENSON ARIA Prescribed Dose Per Fraction 300 STEVENSON ARIA Prescription Dose in cGy 3000 STEVENSON ARIA Plan Primary Reference Point [id number] STEVENSON ARIA 09/27/2023 10:5 3 AM CAR COOPER Provider Not In System RADIATION ONCOLOG Y ORDERABLES ELVA ARAGON na from Last 3 Months Care Teams Manager Research And Development Relationship Specialty Start Date End Date Elsewhere, Pcp PCP - General 12/07/19
--- OUTSIDE RECORDS SUMMARY | 2023-12-19 13:33 | XMS_ITS | Encounter Summary ---
Author Name Unknown Organization 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 [address] [place] [address] [facility] Region Referral ID Status Reason Start Date Expiration Date V isits Requested Visits Authorized [id number] Authorized 08/29/2023 08/28/2024 10 10 Encounter Details Date Type Department Care Team (Latest Contact Info) Description 09/26/2023 10:24 AM BARKING MACHINE FEEDER - 09/26/2023 4:10 PM BARKING MACHINE FEEDER Hospital Encounter Department of Radiation Oncology in [address] [address] Meghana Tay M.D. [address] [place] [address] Malignant Neoplasm Of Lung Small Cell Right [...] Comments Blood Pressure 148/72 09/26/2023 11:10 AM BARKING MACHINE FEEDER Pulse 90 09/26/2023 11:10 AM BARKING MACHINE FEEDER Temperature 36.6 ??C (97.8 ??F) 09/26/2023 11:[address] Respiratory Rate - - Oxygen Saturation - - Inhaled Oxygen Concentration - - Weight 64.2 kg (141 lb 8.6 oz) 09/26/2023 11:10 AM BARKING MACHINE FEEDER Height - - Body Mass Index 23.02 [...] the tongue as needed. 0 08/02/2016 omega 4-wvf-yfl-fish oil (fish oil) 1,000 mg (120 mg-180 [...] (cGy) First Treatment Last Treatment Elapsed Days [id number] 300 2400 3000 09/16/2023 09/25/2023 9 Course [...] have follow up with Dr. Nascimento at [facility] on October 08, 2023. Follow up Dr. Tay will be as needed. He will contact us with any questions or concerns. We will continue with radiation treatment as planned. Signed by: Veronika Faustin R.N. 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
--- OUTSIDE RECORDS SUMMARY | 2023-12-19 13:33 | XMS_ITS ---
Author Name Unknown Organization [facility] Address [address] [place] [address] Care Team Providers Care Husbandry Technician Name Role Phone Elsewhere, Pcp Primary [...] Treated Prescribed Fraction Dose Prescribed Total Dose [id number] 09/27/2023 11 10 300 cGy 3,000 cGy Reference Point Last Treated On Elapsed Days Session Dose Total Dose [id number] 09/27/2023 11 300 cGy 3,000 cGy
--- OUTSIDE RECORDS SUMMARY | 2023-12-19 13:33 | XMS_ITS | Encounter Summary ---
Author Name Unknown Organization [facility] Address [address] [place] [address] Care Team Providers Care Noc Technician Name Role Phone Elsewhere, Pcp Primary Care Provider Unavailabl e Encounter Details Date Type Department Care Team (Latest Contact Info) Description 09/27/2023 10:26 AM INTERIOR DESIGN PRINCIPAL - 09/27/2023 11:59 PM [facility] Hospital Encounter Department of Radiation Oncology in [place], [place] [address] [place] [address] Meghana Tay M.D. [address] [place] [address] Discharge Disposition: Home or Self Care Social [...] the tongue as needed. 0 08/02/2016 omega 8-dym-wzp-fish oil (fish oil) 1,000 mg (120 mg-180 [...] on filedocumented in this encounter Care Teams Noc Technician Relationship Specialty Start Date End Date Elsewhere, Pcp PCP - General 12/07/19 documented as of this encounter
--- OUTSIDE RECORDS SUMMARY | 2023-12-19 13:33 | XMS_ITS | Referral Summary ---
Author Name Unknown Organization [facility] Address [address] [place] [address] Care Team Providers Care Weight Reduction Specialist Name Role Phone Elsewhere, Pcp Primary Care Provider Unavailabl e Source Comments Patient records contain information from all sites at [facility]. For routine questions regarding patient records, call [phone] during business hours, M-F 8:00 AM - 5:00 PM Central Time. Record requests for emergency care only can be directed to [phone] at any time.[facility] Encounters Date Type Department Care Team Description 10/03/2023 Clinical Communication Department of Radiation Oncology in [address] [address] Meghana Tay M.D. 09/27/2023 Documentation Department of Radiation Oncology in [address] [address] Meghana Tay M.D. 09/27/2023 10:26 AM COMMERCIAL FRONT LOAD OPERATOR - 09/27/2023 11:59 PM COMMERCIAL FRONT LOAD OPERATOR Hospital Encounter Department of Radiation Oncology in [address] [address] Meghana Tay M.D. Discharge Disposition: Home or Self Care 09/26/2023 10:24 AM COMMERCIAL FRONT LOAD OPERATOR - 09/26/2023 4:10 PM COMMERCIAL FRONT LOAD OPERATOR Hospital Encounter Department of Radiation Oncology in [address] [address] Maggi, Meghana I., M.D. 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 Discharge Disposition: Home or Self Care 09/25/2023 10:26 AM COMMERCIAL FRONT LOAD OPERATOR - 09/25/2023 11:59 PM COMMERCIAL FRONT LOAD OPERATOR Hospital Encounter Department of Radiation Oncology in [address] [address] Meghana Tay M.D. Discharge Disposition: Home or Self Care 09/24/2023 8:24 AM COMMERCIAL FRONT LOAD OPERATOR - 09/24/2023 11:59 PM COMMERCIAL FRONT LOAD OPERATOR Hospital Encounter Department of Radiation Oncology in [address] [address] Meghana Tay M.D. Discharge Disposition: Home or Self Care 09/23/2023 9:00 AM COMMERCIAL FRONT LOAD OPERATOR - 09/23/2023 11:59 PM COMMERCIAL FRONT LOAD OPERATOR Hospital Encounter Department of Radiation Oncology in [address] [address] Meghana Tay M.D. Discharge Disposition: Home or Self Care 09/20/2023 8:51 AM CDT - 09/20/2023 11:59 PM CDT Hospital Encounter Department of Radiation Oncology in [address] [address] Meghana Tay M.D. Discharge Disposition: Home or Self Care 09/19/2023 9:20 AM CDT - 09/19/2023 11:59 PM CDT Hospital Encounter Department of Radiation Oncology in [address] [address] Meghana Tay M.D. Discharge Disposition: Home or Self Care 09/18/2023 9:44 AM CDT - 09/18/2023 11:59 PM CDT Hospital Encounter Department of Radiation Oncology in [address] [place] [address] Meghana Tay M.D. Discharge Disposition: Home or [...] mg by mouth. 0 07/28/2023 Active omega 6-wqh-xku-fish oil (fish oil) 1,000 mg (120 mg-180 [...] Comments Blood Pressure 148/72 09/26/2023 11:10 AM COMMERCIAL FRONT LOAD OPERATOR Pulse 90 09/26/2023 11:10 AM COMMERCIAL FRONT LOAD OPERATOR Temperature 36.6 ??C (97.8 ??F) 09/26/2023 1 1:10 AM COMMERCIAL FRONT LOAD OPERATOR Respiratory Rate 16 08/08/2016 10:0 7 AM CDT Value from [employer]. Oxygen Saturation - - Inhaled Oxygen Concentration - - Weight 64.2 kg (141 lb 8.6 oz) 09/26/2023 11:10 AM COMMERCIAL FRONT LOAD OPERATOR Height 167 cm (5' 5.75) 08/02/2016 8:0 0 PM CDT Body Mass Index 23.02 08/02/2016 8:00 PM CDT Plan of Treatment Not on file Procedures Procedure Name Priority Date/Time Associated Diagnosis Comments ARIA COURSE COMPLETE TREATMENT INFORMATION Routine 09/27/2023 10:53 AM COMMERCIAL FRONT LOAD OPERATOR ARIA DAILY TREATMENT INFORMATION Routine 09/27/2023 10:53 AM COMMERCIAL FRONT LOAD OPERATOR ARIA DAILY TREATMENT INFORMATION Routine 09/26/2023 10:59 AM COMMERCIAL FRONT LOAD OPERATOR ARIA DAILY TREATMENT INFORMATION Routine 09/25/2023 10:57 AM COMMERCIAL FRONT LOAD OPERATOR ARIA DAILY TREATMENT INFORMATION Routine 09/24/2023 8:43 AM COMMERCIAL FRONT LOAD OPERATOR ARIA DAILY TREATMENT INFORMATION Routine 09/23/2023 9:27 AM COMMERCIAL FRONT LOAD OPERATOR ARIA DAILY TREATMENT INFORMATION Routine 09/20/2023 9:20 AM CDT ARIA DAILY TREATMENT INFORMATION Routine 09/19/2023 10:11 AM CDT ARIA DAILY TREATMENT INFORMATION Routine 09/18/2023 10:49 AM CDT from Last 3 Months Results * Aria Course Complete Treatment Information (09/27/2023 10:53 AM COMMERCIAL FRONT LOAD OPERATOR) Course ID 1xLung STEVENSON ARIA Course Start Date 3 10:49 COMMERCIAL FRONT LOAD OPERATOR STEVENSON ARIA Course End Date 3 12:01 COMMERCIAL FRONT LOAD OPERATOR STEVENSON ARIA First Treatment Date 3 08:11 COMMERCIAL FRONT LOAD OPERATOR STEVENSON ARIA Last Treatment Date 3 10:53 COMMERCIAL FRONT LOAD OPERATOR STEVENSON ARIA Treatment Elapsed Days 11 STEVENSON ARIA Reference Point [id number] STEVENSON ARIA Dosage Given to Date cGy 3000 STEVENSON ARIA Plan ID [id number] STEVENSON ARIA Fractions Treated to Date 10 STEVENSON ARIA Planned Total Fractions 10 STEEVNSON ARIA Prescribed Dose Per Fraction 300 STEVENSON ARIA Prescription Dose in cGy 3000 STEVENSON ARIA Plan Primary Reference Point [id number] STEVENSON ARIA 09/27/2023 10:5 3 AM COMMERCIAL FRONT LOAD OPERATOR Provider Not In System RADIATION ONCOLOG Y ORDERABLES STEVENSON MARGO na * Aria Daily Treatment Information (09/27/2023 10:53 AM COMMERCIAL FRONT LOAD OPERATOR) Only the most recent of8 resultswithin the time period is included. Course ID 1xLung STEVENSON ARIA Course Start Date 3 10:49 COMMERCIAL FRONT LOAD OPERATOR STEVENSON ARIA First Treatment Date 3 08:11 COMMERCIAL FRONT LOAD OPERATOR STEVENSON ARIA Last Treatment Date 3 10:53 COMMERCIAL FRONT LOAD OPERATOR STEVENSON ARIA Treatment Elapsed Days 11 STEVENSON ARIA Reference Point [id number] STEVENSON ARIA Dosage Given to Date cGy 3000 STEVENSON ARIA Session Dosage Given 300 STEVENSON ARIA Plan ID [id number] STEVENSON ARIA Fractions Treated to Date 10 STEVENSON ARIA Planned Total Fractions 10 STEVENSON ARIA Prescribed Dose Per Fraction 300 STEVENSON ARIA Prescription Dose in cGy 3000 STEVENSON ARIA Plan Primary Reference Point [id number] STEVENSON ARIA 09/27/2023 10:5 3 AM COMMERCIAL FRONT LOAD OPERATOR Provider Not In System RADIATION ONCOLOG Y ORDERABLES ELVA emmanuel from Last 3 Months Care Teams Weight Reduction Specialist Relationship Specialty Start Date End Date Elsewhere, Pcp PCP - General 12/07/19
--- OUTSIDE RECORDS SUMMARY | 2023-12-19 13:33 | XMS_ITS | Encounter Summary ---
Author Name Unknown Organization [facility] Address [address] [place] [address] Care Team Providers Care Environmental Health Aide Name Role Phone Elsewhere, Pcp Primary Care Provider Unavailabl e Encounter Details Date Type Department Care Team (Late st Contact Info) Description 10/03/2023 Clinical Communication Department of Radiation Oncology in [place], [place] [address] [place] [phone] Meghana Tay M.D. [address] [place] [address] Social History Tobacco Use Types Packs/Day Years [...] Lynn Cooper R.N. - 10/04/2023 10:11 AM DRESS DESIGNER ASSESSMENT Patient reports that the last few [...] is not managing his pain. Radiation Oncology [place] can be contacted at anytime for any questions or concerns. I reviewed our call center receptionist phone number with patient as well today. Disposition/Recommendation: self-care - appropriate at this time, patient encouraged to call back with questions. Information/Education: patient/caller able to teach back. Caller agreeable to plan of care: yes. The following references were used: nursing clinical judgement. S DESIGNER * Telephone Encounter - Niya Morel - [...] pain. He would appreciate a call at [phone]. Thank you. S DESIGNER documented in this encounter Plan of Treatment Not on file documented as of this encounter Visit Diagnoses Not on filedocumented in this encounter Care Teams Environmental Health Aide Relationship Specialty Start Date End Date Elsewhere, Pcp PCP - General 12/07/19 documented as of this encounter
--- OUTSIDE RECORDS SUMMARY | 2023-12-19 13:33 | XMS_ITS ---
Author Name Unknown Organization [facility] Address [address] [place] [address] Care Team Providers Care Rotary Operator Name Role Phone Unavailable Unavailable Unavailable Surgery Details Not on file Complications Check Surgery Details section. Procedure Estimated Blood Loss Check Surgery Details section. Procedure Findings Check Surgery Details section. Procedure Specimens Taken Check Surgery Details section.
--- OUTSIDE RECORDS SUMMARY | 2023-12-19 13:34 | XMS_ITS | Encounter Summary ---
Author Name Unknown Organization [facility] Address [address] [place] [address] Care Team Providers Care Rock Room Worker Name Role Phone Elsewhere, Pcp Primary Care Provider Unavailabl e Encounter Details Date Type Department Care Team (Latest Contact Info) Description 09/24/2023 8:24 AM WOOL SCOURER - 09/24/2023 11:59 PM [facility] Hospital Encounter Department of Radiation Oncology in [place], [place] [address] [place] [address] Meghana Tay M.D. [address] [place] [address] Discharge Disposition: Home or Self Care Social [...] the tongue as needed. 0 08/02/2016 omega 2-ovj-hyd-fish oil (fish oil) 1,000 mg (120 mg-180 [...] on filedocumented in this encounter Care Teams Rock Room Worker Relationship Specialty Start Date End Date Elsewhere, Pcp PCP - General 12/07/19 documented as of this encounter
--- OUTSIDE RECORDS SUMMARY | 2023-12-19 13:34 | XMS_ITS | Encounter Summary ---
Author Name Unknown Organization [facility] Address [address] [place] [address] Care Team Providers Care Analytical Laboratory Technician Name Role Phone Elsewhere, Pcp Primary Care Provider Unavailabl e Encounter Details Date Type Department Care Team (Late st Contact Info) Description 09/09/2023 Orders Only Department of Radiation Oncology in [place], [place] [address] [place] [address] Meghana Tay M.D. [address] [place] [address] Social History Tobacco Use Types Packs/Day Years [...] on filedocumented in this encounter Care Teams Analytical Laboratory Technician Relationship Specialty Start Date End Date Elsewhere, Pcp PCP - General 12/07/19 documented as of this encounter
--- OUTSIDE RECORDS SUMMARY | 2023-12-19 13:34 | XMS_ITS | Encounter Summary ---
Author Name Unknown Organization [facility] Address [address] [place] [address] Care Team Providers Care Mill Work Name Role Phone Elsewhere, Pcp Primary Care Provider Unavailabl e Encounter Details Date Type Department Care Team (Latest Contact Info) Description 09/19/2023 9:20 AM CDT - 09/19/2023 11:59 PM CDT Hospital Encounter Department of Radiation Oncology in [place], [place] [address] [place] [address] Meghana Tay M.D. [address] [place] [address] Discharge Disposition: Home or Self Care Social [...] the tongue as needed. 0 08/02/2016 omega 5-fvy-bmo-fish oil (fish oil) 1,000 mg (120 mg-180 [...] on filedocumented in this encounter Care Teams Mill Work Relationship Specialty Start Date End Date Elsewhere, Pcp PCP - General 12/07/19 documented as of this encounter
--- OUTSIDE RECORDS SUMMARY | 2023-12-19 13:34 | XMS_ITS | Encounter Summary ---
Author Name Unknown Organization [facility] Address [address] [place] [address] Care Team Providers Care Impregnator Carbon Products Name Role Phone Elsewhere, Pcp Primary Care Provider Unavailabl e Encounter Details Date Type Department Care Team (Latest Contact Info) Description 09/23/2023 9:00 AM POWER SYSTEM ELECTRICAL ENGINEER - 09/23/2023 11:59 PM [facility] Hospital Encounter Department of Radiation Oncology in [place], [place] [address] [place] [address] Meghana Tay M.D. [address] [place] [address] Discharge Disposition: Home or Self Care Social [...] the tongue as needed. 0 08/02/2016 omega 9-bce-pfu-fish oil (fish oil) 1,000 mg (120 mg-180 [...] on filedocumented in this encounter Care Teams Impregnator [employer] Products Relationship Specialty Start Date End Date Elsewhere, Pcp PCP - General 12/07/19 documented as of this encounter
--- OUTSIDE RECORDS SUMMARY | 2023-12-19 13:34 | XMS_ITS | Encounter Summary ---
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 [address] [place] [address] Referral ID Status Reason Start Date Expiration Date Visits Re quested Visits Authorized [id number] Closed 08/29/2023 08/28/2024 1 1 Encounter Details Date Type Department Care Team (Latest Contact Info) Description 09/09/2023 9:40 AM CDT - 09/09/2023 10:52 AM CDT Hospital Encounter Department of Radiation Oncology in [place], [place] [address] [place] [phone] Meghana Tay M.D. [address] [place] [address] Malignant Neoplasm Of Lung Small Cell Right [...] the tongue as needed. 0 08/02/2016 omega 0-yya-xqt-fish oil (fish oil) 1,000 mg (120 mg-180 [...] Carboplatinum/etoposide/atezolizumab under the care of Dr. Nascimento, [facility] 08/21/2023 Critical Imaging FDG PET-CT IMPRESSION: 1. [...] Medical History: Diagnosis Date Arthritis Atherosclerosis Of [place] Arteries Of Extremities With Intermittent Claudication Bilateral [...] APRN, C.N.P., D.N.P. 09/09/2023 10:56 AM CDT [facility] Radiation Therapy Center [address] [place] [address] Associated attestation - Meghana Tay M.D. - [...] We discussed the acute as well as fci risks, including, but not limited to fatigue, [...] M.D. 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
--- OUTSIDE RECORDS SUMMARY | 2023-12-19 13:34 | XMS_ITS | Encounter Summary ---
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 [address] [place] [address] [facility] Region Referral ID Status Reason Start Date Expiration Date Visits Re quested Visits Authorized [id number] Closed 08/29/2023 08/28/2024 1 1 Encounter Details Date Type Department Care Team (Late st Contact Info) Description 08/29/2023 Orders Only Department of Radiation Oncology in [place], [place] [address] [place] [address] Lyudmila Bledsoe APRN, C.N.P., D.N.P. [address] [place] [address] Malignant Neoplasm Of Lung Small Cell Right [...] (HCC) documented in this encounter Care Teams Protein Specialist Relationship Specialty Start Date End Date Elsewhere, Pcp PCP - General 12/07/19 documented as of this encounter
--- OUTSIDE RECORDS SUMMARY | 2023-12-19 13:34 | XMS_ITS | Encounter Summary ---
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 [address] [place] [address] [facility] Region Referral ID Status Reason Start Date Expiration Date V isits Requested Visits Authorized [id number] Authorized 08/29/2023 08/28/2024 10 10 Encounter Details Date Type Department Care Team (Latest Contact Info) Description 09/17/2023 9:53 AM CDT - 09/17/2023 5:41 PM CDT Hospital Encounter Department of Radiation Oncology in [address] [address] Meghana Tay M.D. [address] [place] [address] Malignant Neoplasm Of Lung Small Cell Right [...] the tongue as needed. 0 08/02/2016 omega 7-bbk-sxd-fish oil (fish oil) 1,000 mg (120 mg-180 [...] (cGy) First Treatment Last Treatment Elapsed Days [id number] [phone] 09/16/2023 09/17/2023 1 Course Summary 09/16/2023 09/17/2023 [...] received IV fluids yesterday and today at [facility]. He will contact us with any questions [...] (HCC) documented in this encounter Care Teams Modular Home Crew Member Relationship Specialty Start Date End Date Elsewhere, Pcp PCP - General 12/07/19 documented as of this encounter
--- OUTSIDE RECORDS SUMMARY | 2023-12-19 13:34 | XMS_ITS | Encounter Summary ---
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 [address] [place] [address] [facility] Region Referral ID Status Reason Start Date Expiration Date Visits Re quested Visits Authorized [id number] Closed 08/29/2023 08/28/2024 1 1 Encounter Details Date Type Department Care Team (Latest Contact Info) Description 09/09/2023 10:53 AM CDT - 09/09/2023 12:41 PM CDT Hospital Encounter Department of Radiation Oncology in [address] [place] [address] Meghana Tay M.D. [address] [place] [address] Malignant Neoplasm Of Lung Small Cell Right [...] the tongue as needed. 0 08/02/2016 omega 3-uxw-fgf-fish oil (fish oil) 1,000 mg (120 mg-180 [...] imaging was appropriate and completed without incident. Child Adolescent Care use:No Associated attestation - Meghana Tay M.D. - 09/09/2023 12:41 PM CDT I was present during all critical and crump portions of the procedure(s) and immediately available [facility] services the entire duration. See note for [...] (HCC) documented in this encounter Care Teams Manager Community Outreach Relationship Specialty Start Date End Date Elsewhere, Pcp PCP - General 12/07/19 documented as of this encounter
--- OUTSIDE RECORDS SUMMARY | 2023-12-19 13:34 | XMS_ITS | Encounter Summary ---
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 [address] [place] [address] [facility] Referral ID Status Reason Start Date Expiration Date Visits Re quested Visits Authorized [id number] Closed 06/04/2023 06/03/2024 1 1 Encounter Details Date Type Department Care Team (Latest Contact Info) Description 09/06/2023 1:37 PM CDT - 09/06/2023 11:59 PM CDT Hospital Encounter Department of Radiology, [facility], in [place], [place] [address] [place] [address] Leila Arteaga P.A.-C., P.A. [address] [place] [address] Malignant Neoplasm Of Unspecified Part [...] the tongue as needed. 0 08/02/2016 omega 6-bke-skm-fish oil (fish oil) 1,000 mg (120 mg-180 [...] frontal operculum. Jaki Ocasio P.A.-C. [place] [place] OCEDURES documented in this encounter Visit Diagnoses [...] mL documented in this encounter Care Teams Locomotive Electrician Relationship Specialty Start Date End Date Elsewhere, Pcp PCP - General 12/07/19 documented as of this encounter
--- OUTSIDE RECORDS SUMMARY | 2023-12-19 13:34 | XMS_ITS | Encounter Summary ---
Author Name Unknown Organization [facility] Address [address] [place] [address] Care Team Providers Care Visual Communications Instructor Name Role Phone Elsewhere, Pcp Primary Care Provider Unavailabl e Encounter Details Date Type Department Care Team (Latest Contact Info) Description 09/20/2023 8:51 AM CDT - 09/20/2023 11:59 PM CDT Hospital Encounter Department of Radiation Oncology in [place], [place] [address] [place] [address] Meghana Tay M.D. [address] [place] [address] Discharge Disposition: Home or Self Care Social [...] the tongue as needed. 0 08/02/2016 omega 4-kib-hdc-fish oil (fish oil) 1,000 mg (120 mg-180 [...] on filedocumented in this encounter Care Teams Visual Communications Instructor Relationship Specialty Start Date End Date Elsewhere, Pcp PCP - General 12/07/19 documented as of this encounter
--- OUTSIDE RECORDS SUMMARY | 2023-12-19 13:34 | XMS_ITS | Encounter Summary ---
Author Name Unknown Organization [facility] Address [address] [place] [address] Care Team Providers Care Blankbook Stitching Machine Operator Name Role Phone Elsewhere, Pcp Primary Care Provider Unavailabl e Encounter Details Date Type Department Care Team (Latest Contact Info) Description 09/16/2023 7:44 AM CDT - 09/16/2023 11:59 PM CDT Hospital Encounter Department of Radiation Oncology in [place], [place] [address] [place] [phone] Meghana Tay M.D. [address] [place] [address] Discharge Disposition: Home or Self Care Social [...] the tongue as needed. 0 08/02/2016 omega 2-dbc-niq-fish oil (fish oil) 1,000 mg (120 mg-180 [...] on filedocumented in this encounter Care Teams Blankbook Stitching Machine Operator Relationship Specialty Start Date End Date Elsewhere, Pcp PCP - General 12/07/19 documented as of this encounter
--- OUTSIDE RECORDS SUMMARY | 2023-12-19 13:34 | XMS_ITS | Encounter Summary ---
Author Name Unknown Organization [facility] Address [address] [place] [address] Care Team Providers Care Community Artist Name Role Phone Elsewhere, Pcp Primary Care Provider Unavailabl e Encounter Details Date Type Department Care Team (Latest Contact Info) Description 09/18/2023 9:44 AM CDT - 09/18/2023 11:59 PM CDT Hospital Encounter Department of Radiation Oncology in [place], [place] [address] [place] [address] Meghana Tay M.D. [address] [place] [address] Discharge Disposition: Home or Self Care Social [...] the tongue as needed. 0 08/02/2016 omega 7-wjx-nga-fish oil (fish oil) 1,000 mg (120 mg-180 [...] on filedocumented in this encounter Care Teams Community Artist Relationship Specialty Start Date End Date Elsewhere, Pcp PCP - General 12/07/19 documented as of this encounter
--- OUTSIDE RECORDS SUMMARY | 2023-12-19 13:34 | XMS_ITS | Encounter Summary ---
Author Name Unknown Organization [facility] Address [address] [place] [address] Care Team Providers Care Sidewalk Repairer Name Role Phone Elsewhere, Pcp Primary Care Provider Unavailabl e Encounter Details Date Type Department Care Team (Latest Contact Info) Description 09/25/2023 10:26 AM GRAB SETTER - 09/25/2023 11:59 PM [facility] Hospital Encounter Department of Radiation Oncology in [place], [place] [address] [place] [address] Meghana Tay M.D. [address] [place] [address] Discharge Disposition: Home or Self Care Social [...] the tongue as needed. 0 08/02/2016 omega 3-yrn-iiz-fish oil (fish oil) 1,000 mg (120 mg-180 [...] on filedocumented in this encounter Care Teams Sidewalk Repairer Relationship Specialty Start Date End Date Elsewhere, Pcp PCP - General 12/07/19 documented as of this encounter
--- OUTSIDE RECORDS SUMMARY | 2023-12-19 13:34 | XMS_ITS | Encounter Summary ---
Author Name Unknown Organization [facility] Address [address] [place] [address] Care Team Providers Care Slide Developer Name Role Phone Elsewhere, Pcp Primary Care Provider Unavailabl e Encounter Details Date Type Department Care Team (Latest Contact Info) Description 09/17/2023 9:53 AM CDT - 09/17/2023 11:59 PM CDT Hospital Encounter Department of Radiation Oncology in [place], [place] [address] [place] [address] Meghana Tay M.D. [address] [place] [address] Discharge Disposition: Home or Self Care Social [...] the tongue as needed. 0 08/02/2016 omega 7-sly-ziw-fish oil (fish oil) 1,000 mg (120 mg-180 [...] on filedocumented in this encounter Care Teams Slide Developer Relationship Specialty Start Date End Date Elsewhere, Pcp PCP - General 12/07/19 documented as of this encounter
--- OUTSIDE RECORDS SUMMARY | 2023-12-19 13:35 | XMS_ITS | Referral Summary ---
Author Name Unknown Organization [facility] Address [address] [place] [address] Care Team Providers Care Traffic Operations Engineer Name Role Phone Jez Burnham MD Primary Care Provider Allergies No known active allergies Medications Medication [...] Information Patient not taking.Reported on 10/23/2021 Aspirin Buf,SjRmtf-MyUcpt-L gO, 81 MG TABS Take 81 mg [...] Comments Blood Pressure 131/80 10/23/2021 3:00 PM MAINTENANCE AIDE Pulse 97 10/23/2021 3:00 PM MAINTENANCE AIDE Temperature - - Respiratory Rate 18 10/23/2021 3:00 PM MAINTENANCE AIDE Oxygen Saturation 98% 10/23/2021 3:00 PM MAINTENANCE AIDE Inhaled Oxygen Concentration - - Weight 68.5 kg (151 lb) 10/23/2021 3:00 PM MAINTENANCE AIDE Height 167.6 cm (5' 6) 10/23/2021 3:00 PM MAINTENANCE AIDE Body Mass Index 24.37 10/23/2021 3:00 PM MAINTENANCE AIDE Plan of Treatment Not on file Care Teams Traffic Operations Engineer Relationship Specialty Start Date End Date Jez Burnham MD [facility] [address] [place] [address] PCP - General Family Medicine 10/09/21
--- OUTSIDE RECORDS SUMMARY | 2023-12-19 13:35 | XMS_ITS | Clinical Summary ---
Author Name Unknown Organization [facility] Address [address] [place] [address] Care Team Providers Care Spreading Machine Operator Name Role Phone Jez Burnham MD Primary Care Provider [phone] Allergies No known active allergies Medications Medication [...] Information Patient not taking.Reported on 10/23/2021 Aspirin Buf,IhOmse-MpAkst-K gO, 81 MG TABS Take 81 mg [...] Comments Blood Pressure 131/80 10/23/2021 3:00 PM HIGH SCHOOL SCIENCE TEACHER Pulse 97 10/23/2021 3:00 PM HIGH SCHOOL SCIENCE TEACHER Temperature - - Respiratory Rate 18 10/23/2021 3:00 PM HIGH SCHOOL SCIENCE TEACHER Oxygen Saturation 98% 10/23/2021 3:00 PM HIGH SCHOOL SCIENCE TEACHER Inhaled Oxygen Concentration - - Weight 68.5 kg (151 lb) 10/23/2021 3:00 PM HIGH SCHOOL SCIENCE TEACHER Height 167.6 cm (5' 6) 10/23/2021 3:00 PM HIGH SCHOOL SCIENCE TEACHER Body Mass Index 24.37 10/23/2021 3:00 PM HIGH SCHOOL SCIENCE TEACHER Plan of Treatment Health Maintenance Due Date [...] age to complete this topic Care Teams Spreading Machine Operator Relationship Specialty Start Date End Date Jez Burnham MD [facility] [address] [place] [address] PCP - General Family Medicine 10/09/21
--- OUTSIDE RECORDS SUMMARY | 2023-12-19 13:35 | XMS_ITS | Encounter Summary ---
Author Name Unknown Organization [facility] Address [address] [place] [address] Care Team Providers Care Box Person Name Role Phone Elsewhere, Pcp Primary Care Provider Unavailabl e Encounter Details Date Type Department Care Team (Latest Contact Info) Description 05/31/2023 4:37 PM CDT - 05/31/2023 11:59 PM CDT Hospital Encounter Department of Radiology in [place], [place] [address] [place] [address] Leila Arteaga, P.AFelicia-Derrick., P.A. [address] [place] [address] Malignant Neoplasm Of Unspecified Part [...] the tongue as needed. 0 08/02/2016 omega 0-cnk-ltx-fish oil (fish oil) 1,000 mg (120 mg-180 [...] orenhancement. Leila Arteaga P.A.-C. P.A. 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
--- OUTSIDE RECORDS SUMMARY | 2023-12-19 13:35 | XMS_ITS | Encounter Summary ---
Author Name Unknown Organization [facility] Address [address] [place] [address] Care Team Providers Care Aircraft Armorer Name Role Phone Elsewhere, Pcp Primary Care Provider Unavailabl e Encounter Details Date Type Department Care Team (Late st Contact Info) Description 05/30/2023 Orders Only Department of Oncology in [place], [place] [address] [place] [phone] Cony Bronson M.D. [address] [place] [address] Social History Tobacco Use Types [...] on filedocumented in this encounter Care Teams Aircraft Armorer Relationship Specialty Start Date End Date Elsewhere, Pcp PCP - General 12/07/19 documented as of this encounter
--- OUTSIDE RECORDS SUMMARY | 2023-12-19 13:35 | XMS_ITS | Encounter Summary ---
Author Name Unknown Organization [facility] Address [address] [place] [address] Care Team Providers Care Virtual Customer Assistant Name Role Phone Jez Burnham MD Primary Care Provider [phone] Melinda Dolan DO Unavailable + Encounter Details Date Type Department Care Team (Late st Contact Info) Description 03/11/[address] [facility] [place] [address] [place] [phone] Lona Diaz, RN Social History Tobacco Use [...] on filedocumented in this encounter Care Teams Virtual Customer Assistant Relationship Specialty Start Date End Date Jez Burnham MD [facility] [address] [place] [address] PCP - General Family Medicine 10/09/21 Melinda Dolan DO [facility] [address] [place], [place] [address] Assigned Heart and Vascular Provider 11/05/21 04/26/23 documented as of this encounter
--- OUTSIDE RECORDS SUMMARY | 2023-12-19 13:35 | XMS_ITS | Encounter Summary ---
Author Name Unknown Organization [facility] Address [address] [place] [address]. [place] [address] Care Team Providers Care Press Writer Name Role Phone Jez Burnham MD Primary Care Provider [phone] Melinda Dolan DO Unavailable + Encounter Details Date Type Department Care Team (Late st Contact Info) Description 03/06/2023 Telephone [facility] [place] [address] [place] [phone] Melinda Dolan, [facility] [address] [place] [address] Social History Tobacco Use Types [...] he would like to schedule CTA at [facility]. Faxed to [facility]. Discussed patient needs to notify me when completed. Meghan Diaz RN IR nurse clinician [phone] * Telephone Encounter - Massimo Ortega - 03/06/2023 2:41 PM CDT [facility] Who is the name of the provider?: Magdaleno What is the location you see this provider at/preferred location?: Theresa Person calling / Facility: [facility] Phone number: [phone] Nurse call back needed: YES Reason for call: Patients PCP's office calling to request a follow up with Vascular / IR for patient. Daniella, will discuss sending recent medical records and a referral to [facility]. Please call Daniella to clarify any additional info. Pharmacy location: n/a Outside Imaging: n/a Can we leave a detailed message on this number? YES documented in this encounter Plan of Treatment Not on file documented as of this encounter Visit Diagnoses Not on filedocumented in this encounter Care Teams Press Writer Relationship Specialty Start Date End Date Jez Burnham MD [facility] [address] [place] [address] PCP - General Family Medicine 10/09/21 Melinda Dolan DO [facility] [address] [facility] [address] [place] [address] Assigned Heart and Vascular Provider 11/05/21 04/26/23 documented as of this encounter
--- OUTSIDE RECORDS SUMMARY | 2023-12-19 13:35 | XMS_ITS | Clinical Summary ---
Author Name Unknown Organization [employer] [facility] [employer] Address [place], [place] [address] Care Team Providers Care Broodmare Barn Groom Name Role Phone Andrei Burnham MD Primary Care Provider [phone] Allergies No known active allergies Medications Medication [...] 65+ 07/19/2023 Medical Devices Implanted Type Area Avionics Safety Inspector Device Identifier Shelf Expiration Date Model / Serial / Lot Patch Vasc 0.8x8cm Biological Peripatch - [id number] Implanted:Qty: 1 on 10/07/2013 by Devin Cardoza MD at [facility] Left: Carotid Artery [employer] 06/17/2016 0.8P8# / / [id number] Advance Directives Latest Code Status on File [...] 11:10 PM 05/31/2013 3:24 PM Care Teams Broodmare Barn Groom Relationship Specialty Start Date End Date Andrei Burnham MD PCP - General Family Practice 06/08/13
--- OUTSIDE RECORDS SUMMARY | 2023-12-19 13:35 | XMS_ITS | Encounter Summary ---
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 [address] [place] [address] [facility] Referral ID Status Reason Start Date Expiration Date Visits Re quested Visits Authorized [id number] Closed 06/04/2023 06/03/2024 1 1 Encounter Details Date Type Department Care Team (Late st Contact Info) Description 06/04/2023 Orders Only Department of Oncology in [place], [place] [address] [place] [phone] Leila Arteaga P.A.-C., P.A. [address] [place] [phone] Malignant Neoplasm Of Unspecified Part [...] operculum. Leila Arteaga P.A.-C. 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
--- OUTSIDE RECORDS SUMMARY | 2023-12-19 13:35 | XMS_ITS | Encounter Summary ---
Author Name Unknown Organization [facility] Address [facility] [address] Care Team Providers Care Press Feeder Broomcorn Name Role Phone Jez Burnham MD Primary Care Provider [phone] Melinda Dolan DO Unavailable + Encounter Details Date Type Department Care Team (Late st Contact Info) Description 03/26/2023 Telephone [facility] [address] [phone] Lona Diaz RN Social History [...] questions. Meghan Diaz RN IR nurse clinician [phone] * Telephone Encounter - Lona Diaz RN - 03/26/2023 3:[address] Pranav's , was notified from [facility] reading radiologist regarding incidental finding of posterior mediastinal mass that was noted on CTA abdomen/pelvis that was performed on 03/25/2023. Contacted primary provider Dr. Jez Burnham at [facility]. Spoke to manager respiratory care: Informed of incidental finding, need to follow up with patient and obtain CT chest with contrast. Discussed that Dr. Cornejo was only seeing the patient for leg claudication. Consult was on back on October 2021. Patient did not respond to repeated attempts to schedule imaging. Was then referred back for claudication. Agreed to obtain CTA abdomen/pelvis with runoff, per patient request wantedimaging at [facility]. regional education coordinator states she will notify Dr. Burnham JOSHUA. Discussed that we are deferring to primary to notify patient of findings. Meghan Diaz RN IR nurse clinician [phone] * Telephone Encounter - Lona Diaz RN - 03/26/2023 12:00 PM CDT Contacted patient did have CTA at [facility]. Will call and ask images to be pushed to [facility] and fax report. Once obtained will review with Dr. Dolan. Meghan Diaz RN IR nurse clinician [phone] documented in this encounter Plan of Treatment Not on file documented as of this encounter Visit Diagnoses Not on filedocumented in this encounter Care Teams Press Feeder Broomcorn Relationship Specialty Start Date End Date Jez Burnham MD [facility] [address] [place] [address] PCP - General Family Medicine 10/09/21 Melinda Dolan DO [facility] [address] [place] [address] Assigned Heart and Vascular Provider 11/05/21 04/26/23 documented as of this encounter
--- OUTSIDE RECORDS SUMMARY | 2023-12-19 13:35 | XMS_ITS | Encounter Summary ---
Author Name Unknown Organization [facility] Address [address] [place] [address] Care Team Providers Care Calcine Furnace Tender Name Role Phone Elsewhere, Pcp Primary Care Provider Unavailabl e Encounter Details Date Type Department Care Team (Late st Contact Info) Description 05/30/2023 Orders Only Department of Oncology in [place], [place] [address] [place] [phone] Leila Arteaga PKaren., P.A. [address] [place] [phone] Social History Tobacco Use Types Packs/Day Years [...] on filedocumented in this encounter Care Teams Calcine Furnace Tender Relationship Specialty Start Date End Date Elsewhere, Pcp PCP - General 12/07/19 documented as of this encounter
--- OUTSIDE RECORDS SUMMARY | 2023-12-19 13:35 | XMS_ITS | Encounter Summary ---
Author Name Unknown Organization [facility] Address [address] [place] [address] Care Team Providers Care Lollypop Machine Operator Name Role Phone Elsewhere, Pcp Primary Care Provider Unavailabl e Encounter Details Date Type Department Care Team (Late st Contact Info) Description 05/31/2023 Orders Only Department of Oncology in [place], [place] [address] [place] [phone] Leila Arteaga PAlexandru, P.A. [address] [place] [phone] Malignant Neoplasm Of Unspecified Part Of Lung [...] edema orenhancement. Jaki Ocasio P.A.-C. 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
--- OUTSIDE RECORDS SUMMARY | 2023-12-19 13:35 | XMS_ITS | Encounter Summary ---
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 [address] [place] [address] [facility] Referral ID Status Reason Start Date Expiration Date Visits Re quested Visits Authorized [id number] Closed 08/05/2023 08/04/2024 1 1 Encounter Details Date Type Department Care Team (Latest Contact Info) Description 08/21/2023 8:56 AM CDT - 08/21/2023 11:59 PM CDT Hospital Encounter Department of Radiology in [place], [place] [address] [place] [phone] Maci Nascimento M.D. [address] [facility] [place] [phone] Malignant Neoplasm Of Unspecified Part Of Lung [...] the tongue as needed. 0 08/02/2016 omega 9-oxq-wse-fish oil (fish oil) 1,000 mg (120 mg-180 [...] RADIOPHARMACEUTICAL/MEDS: Route: intravenous fludeoxyglucose F 18 injection MCC (FDG F-18),13.2 millicurie Procedure Note True Fernandes [...] RADIOPHARMACEUTICAL/MEDS: Route: intravenous fludeoxyglucose F 18 injection MCC (FDG F-18),13.2 millicurie IMPRESSION: 1. Neither the [...] Dose Rate Site fludeoxyglucose F 18 injection MCC (FDG F-18) 13.2 millicurie, intravenous, Once, On Sat08/21/23 at 1000, For 1 dose, Imaging Protocol Orders Given 08/21/2023 9:10 AM CDT 13.2 millicuries Right Antecubital documented in this encounter Care Teams Underwriting Support Specialist Relationship Specialty Start Date End Date Elsewhere, Pcp PCP - General 12/07/19 documented as of this encounter
--- NOTE | 2023-12-19 14:00 | PE_ITS ---
[facility] [address] [facility] [address] Phone:?[phone] Fax:?[phone] Referring Physician Information: Maci Nascimento M.D. [address] [facility] [address] Phone:?[phone] Fax:?[phone] Patient:Neva Castrejon D.O.B:?1955 Sex:?Male Phone:?[phone] [facility] MRN:?[id number] Exam Date:?12/19/2023 EXAM: PET STUDY EYES TO THIGHS CLINICAL INFORMATION: Small cell lung carcinoma; assess treatment response TECHNICAL INFORMATION: PET scanning was performed approximately 59 minutes following administration of 13.6 mCi of 18-FDG delivered intravenously. PET images are interpreted using a computer viewing workstation. The patient's glucose at the time of injection was 119 mg/dL. SUV max liver 3.2; BMI normalization method. COMPARISON:?PET/CT 08/21/[address] [place] 11/12/2023 [facility]. INTERPRETATION: Head and Neck: Physiologic intracranial and glandular activity is identified. No pathologic neck adenopathy or abnormal radiotracer uptake. Chest: Mildly hypermetabolic right hilar node, SUV max, 3.11, previously 2.91, image 95. Hypermetabolic subcarinal activity SUV max 8.17, previously 2.61, background mediastinal activity 2.04. 6 mm subpleural nodule right upper lobe image 82 and 5 mm subpleural right upper lobe nodule image 91 series 202, unchanged since chest CT dated 11/12/2023, without FDG avidity. No additional lung nodule or infiltrate. No pleural or pericardial effusion. Previously described 9 mm right lower lobe and cavitary 9 mm nodule right upper lobe are absent since 08/21/2023 PET/CT and also not visualized on prior chest CT 11/12/2023. Abdomen, Pelvis and Proximal Thighs: No suspicious hypermetabolic foci throughout the abdomen or pelvis. No mass, adenopathy or additional abnormality. Atherosclerotic calcification abdominal aorta without aneurysm. Degenerative thoracic and lumbar spine change. CONCLUSION: 1. Relative stable mild hypermetabolic activity right hilar and subcarinal lymph nodes, suspicious, without significant change since PET/CT dated 08/21/2023. 2. 5 mm and 6 mm right upper lobe nodules without hypermetabolic activity. Electronically signed on 12/20/2023 12:45:00 PM by Benedict Layton M.D.
== END 2023-12-19 13:30 | disposition home or self-care (01) ==
LOC: RAD 13:31
PROVIDERS: PCP Family Medicine; Visit Provider Internal Medicine Hematology & Oncology
DX: C34.11 Malignant neoplasm of upper lobe, right bronchus or lung (principal)
CPT/HCPCS: 78815; A9552

== ENCOUNTER 2024-03-19 10:32 | Outpatient (CLI) | payer MEDICARE, BC, SELFPAY ==
--- OUTSIDE RECORDS SUMMARY | 2024-03-19 10:35 | XMS_ITS | Clinical Summary ---
Author Name Unknown Organization [employer] [facility] Address [place], [place] [address] Care Team Providers Care Bread Molder Name Role Phone Andrei Burnham MD Primary Care Provider [phone] Allergies No known active allergies Medications Medication Sig Dispensed Refills Start Date End Date Status atorvastatin (LIPITOR) 40 mg tablet Take 40 mg by mouth once daily. Active aspirin 81 mg tablet Take 81 mg by mouth once daily with a meal. Active omega-3 fatty acids-vitamin E (FISH OIL) 1,000 mg cap Take by mouth once daily. Active atenolol (TENORMIN) 50 mg tablet Take [...] unit capsule Take by mouth once daily. Active folic acid 1 mg tabletIndications:Mac rocytic anemia Take 1 tablet by mouth once daily. 30 tablet 05/17/2015 Active omeprazole (PRILOSEC) 20 mg Delayed-Release capsule Take 20 mg by mouth once daily before a meal. Active lisinopriL (PRINIVIL; ZESTRIL) 2.5 mg tablet 03/14/2020 Active metoprolol succinate (TOPROL XL) 25 mg Sustained-Release tablet 03/14/2020 Active amLODIPine (NORVASC) 5 mg tabletIndications:HTN [...] 12/05/2021, 02/22/2021, 01/25/2021 Influenza for age 65+ 07/19/2024 Medical Devices Implanted Type Area Gravity Prospector Device Identifier Shelf Expiration Date Model / Serial / Lot Patch Vasc 0.8x8cm Biological Peripatch - [id number] Implanted:Qty: 1 on 10/07/2013 by Devin Cardoza MD at [facility] Left: Carotid Artery [employer] 06/17/2016 0.8P8# / / [id number] Procedures Procedure Name Priority Date/Time Associated Diagnosis Comments LIPID PANEL Early AM 05/30/2013 5:25 AM CDT from Last 3 Months or Most Recently Relevant to Health Maintenance Results * Lipid Panel - In AM (05/30/2013 5:25 AM CDT) CHOLESTEROL,TOTA L 112 100 - 199 mg/dL [facility] TRIGLYCERIDES 126 <150 mg/dL [facility] HDL CHOLESTEROL 49 >40 mg/dL [facility] CHOL/HDL RATIO 2.29 <4.50 [facility] NON-HDL CHOLESTEROL 63 Undefined mg/dL [facility] LDL CHOLESTEROL 38 <131 mg/dL [facility] PATIENT STATUS Fasting [facility] Blood specimen (specimen) BLOOD SPECIMEN / Unknown 05/30/2013 5:25 AM CDT 05/29/2013 11:10 PM CDT Pranav Bennett MD CHEMISTRY [facility] [place]NAL ZIP [address] [place] [phone] from Last 3 Months or Most Recently Relevant to Health Maintenance Advance Directives * Full Code (Latest Code Status on File) Date Activated Date Inactivated Comments 05/23/2023 8:59 AM 05/23/2023 3:32 PM Question Answer Comments Code Status Discussion: Unable to Assess Preferences, Provider to review later * Full Code Date Activated Date Inactivated Comments 05/15/2015 3:16 PM 05/17/2015 2:44 PM * Full Code Date Activated Date Inactivated Comments 10/07/2013 10:12 AM 10/08/2013 1:33 PM * Full Code Date Activated Date Inactivated Comments 10/07/2013 6:08 AM 10/07/2013 10:12 AM * Full Code Date Activated Date Inactivated Comments 05/29/2013 11:10 PM 05/31/2013 3:24 PM Care Teams Bread Molder Relationship Specialty Start Date End Date Andrei Burnham MD PCP - General Family Practice 06/08/13
--- OUTSIDE RECORDS SUMMARY | 2024-03-19 10:35 | XMS_ITS | Clinical Summary ---
Author Name Unknown Organization [facility] Address [address] [place] [address] Care Team Providers Care Weld Lay Out Worker Name Role Phone Elsewhere, Pcp Primary Care Provider Unavailabl e Source Comments Patient records contain information from all sites at [facility]. For routine questions regarding patient records, call [phone] during business hours, M-F 8:00 AM - 5:00 PM Central Time. Record requests for emergency care only can be directed to [phone] at any time.[facility] Allergies No known active allergies Medications Medication Sig Dispensed Refills Start Date End Date Status aspirin 81 mg chewable tablet Chew 1 tablet daily. 08/02/2016 Active bismuth subsalicylate (PEPTO BISMOL) 262 mg tablet Take 2 tablets by mouth. 08/10/2022 Active cholecalciferol (VITAMIN D3) 10 mcg (400 Unit) tablet daily. 08/16/2021 Active folic acid 1 mg tablet Take 1 tablet by mouth daily. 05/17/2015 Active metoprolol succinate (TOPROL-XL) 25 mg 24 hr tablet 08/07/2016 Active multivitamin tablet Take 1 tablet by mouth daily. 08/02/2016 Active nitroglycerin (NITROSTAT) 0.[address] 1 tablet under the tongue as needed. 08/02/2016 Active omeprazole (PriLOSEC) [address] capsule Take 20 mg by mouth. Active tamsulosin (FLOMAX) 0.4 mg 24 hr capsule 09/08/2023 Active thiamine (VITAMIN B1) 100 mg tablet Take 1 tablet by mouth daily. 08/07/2016 Active acetaminophen (TylenoL) 325 mg tablet Take 650 mg by mouth. 08/10/2022 Active atorvastatin (LIPITOR) 40 mg tablet Take 40 mg by mouth. 07/25/2012 Active Dulera 50-5 mcg/actuation HFA aerosol inhaler 06/25/2023 Active benzonatate (TESSALON) 200 mg capsule Take 200 mg by mouth. 07/28/2023 Active omega 6-oik-xhm-fish oil (fish oil) 1,000 mg (120 mg-180 mg) capsule Take 1 capsule by mouth daily. 08/02/2016 Active Active Problems Problem Noted Date Diagnosed Date Malignant Neoplasm Of Lung Small Cell Right 08/18 Cancer Staging:Clinical stage from 05/23/2023:Stage IVB(cT3(3), cN3, cM1c) - Unsigned Social History Tobacco Use Types Packs/Day Years Used Date Smoking Tobacco: Former Cigarettes Q uit: 2016 Smokeless Tobacco: Never Alcohol [...] Comments Blood Pressure 148/72 09/26/2023 11:10 AM SPRAY RIG OPERATOR Pulse 90 09/26/2023 11:10 AM SPRAY RIG OPERATOR Temperature 36.6 ??C (97.8 ??F) 09/26/2023 1 1:10 AM SPRAY RIG OPERATOR Respiratory Rate 16 08/08/2016 10:0 7 AM CDT Value from Chartplus. Oxygen Saturation - - Inhaled Oxygen Concentration - - Weight 64.2 kg (141 lb 8.6 oz) 09/26/2023 11:10 AM SPRAY RIG OPERATOR Height 167 cm (5' 5.75) 08/02/2016 [...] 08/06/2019 08/06/2016, 08/05/2016, 08/04/2016, Additional history exists COVID-19 Vaccine ( - 2022- season) 2023 09/07/2023, 09/13/2022, 12/05/2021, Additional history exists Depression Screening (Annual PHQ-2) 11/18/2023 Fall Risk Screen (Annual) 11/18/2023 DTaP,Tdap,and Td Vaccines (3 - Td or Tdap) 08/16/2031 08/16/2021, 02/27/2012, 12/25/2005 Abdominal Aortic Aneurysm (AAA) Screen Completed 08/04/2016, 08/03/2016 Hepatitis C Screening Completed 08/07/2016 Zoster Vaccines Completed 12/10/2018, 09/18, 09/21/2014 Influenza Vaccine Completed 09/07/2023, , 08/16/2021, Additional history exists HPV Vaccines Aged Out No longer eligi ble based on patient's age to complete this topic Procedures Procedure Name Priority Date/Time Associated Diagnosis Comments OUTSIDE NM PET Routine 03/12/2024 2:30 PM CDT HCV AB SCRN W/REFLEX TO HCV PCR, S Routine 08/07/2016 5:30 AM CDT ELECTROLYTE (CHEM 4) PANEL, S/P Routine 08/06/2016 4:23 AM CDT US ABDOMEN COMPLETE WITH LIVER DOPPLER Routine 08/04/2016 8:08 AM CDT from Last 3 Months or Most Recently Relevant to Health Maintenance Results * PET skull to mid thigh-Outside NM Pet (03/12/2024 2:30 PM CDT) 03/12/2024 2:27 PM CDT Narrative IIMS - 03/12/2024 5:16 PM CDT This order has been created and auto-finalized to support the import of outside images. If available, original interpretation can be found on the Media Tab in Chart Review, in Document Viewer, or as an image in QREADS. If a re-interpretation or overread is required please follow defined workflow. ?? Provider Not In System IMG NM PROCEDURES Performing Organization Address City/[facility]/ZIP Co de Phone Number IIMS NA * HCV AB Scrn w/Reflex to HCV PCR, S (08/07/2016 5:30 AM CDT) HCV Ab Screen, S Negative Negative [facility] Comment:Yvqqus-bg-lrrjit rat io is <1.00. 08/07/2016 5:30 AM CDT 08/07/2016 5:30 AM CDT Urbano Ibarra M.D., Ph.D. LAB MICROBIOLOGY - BLOOD ORDERABLES Performing Organization Address City/[facility] Co de Phone Number [facility] [address] * (ABNORMAL) Electrolyte (Chem 4) Panel (08/06/2016 4:23 AM CDT) Sodium, S 140 135 - 145 MMOL/L [facility] Potassium, S 4.1 3.6 - 5.2 MMOL/L [facility] eGFR-Black/Afri can [place] Zealander >60 >60 ML/MIN/BSA [facility] BUN (Blood Urea Nitrogen), S 18 8 - 24 MG/DL [facility] Chloride, S 99 98 - 107 MMOL/L [facility] HX Bicarbonate, P/S 27 22 - 29 MMOL/L [facility] Creatinine 1.3 0.8 - 1.3 MG/DL [facility] eGFR Non-Black/Afric an [place]ander 56(L) >60 ML/MIN/BSA [facility] Anion Gap 14 7 - 15 [facility] Glucose, S 95 70 - 140 MG/DL [facility] 08/06/2016 4:23 AM CDT 08/06/2016 4:23 AM CDT Urbano Ibarra M.D., Ph.D. LAB BLOOD ADD-ON [facility] [address] [place] [address], [facility] * US Abdomen and Abdomen Doppler (08/04/2016 8:08 AM CDT) Anatomical Region Laterality Modality Abdomen N/A Ultrasound 08/04/2016 8:08 AM CDT Impressions 08/04/2016 8:18 AM CDT ??Indeterminate hepatic mass FINDINGS: Liver: Indeterminate 2.0 cm hepatic mass in segment IVb, corresponds to the mass seen on the CT. This is not focal fat nor is it a typical benign cavernous hemangioma. MRI or ultrasound-guided biopsy could be considered. Slightly abnormal configuration to the right hepatic lobe, likely due to remote parenchymal insult. Spleen: ??Normal. Spleen length: 9.5 cm. Doppler: ??Splenic, portal, and hepatic veins are patent with antegrade flow. The main hepatic artery is patent with antegrade flow. IVC: ??Normal where seen. Gallbladder: Cholelithiasis. Mildly contracted with associated mild nonspecific gallbladder wall thickening. Negative sonographic Lan's sign.. Intrahepatic ducts: ??Not dilated. Common duct: ??Not dilated. Pancreas: Complex 4.2 x 1.8 x 4.0 cm mixed solid and cystic mass adjacent the tail the pancreas and splenic hilum, seen on yesterday's CT. ??If there is a history of pancreatitis, this probably represents an old peripancreatic fluid collection. Hematoma remains a consideration. Given the indeterminate hepatic mass, a pancreatic neoplasm remains a very remote consideration. Right kidney: ??No hydronephrosis. Renal length: 10.3 cm. Left kidney: ??No hydronephrosis. Renal length: 10.7 cm. Aorta: ??Normal caliber. Ascites: Trace amount. Bilateral pleural effusions. Electronically signed by: ?? Tasneem Brand ??Annalise [id number] 04-Aug-2016 08:18 Narrative 08/04/2016 8:18 AM CDT 04-Aug-2016 08:08:00 ??Exam: US Abd Cmpl with Doppler Lmtd Indications: [id number]/US ABDOMEN WITH DOPPLER/liver disease alcoholic/pt w/encephalopathy and heavy alcohol use w/2 cm liver nodule and elevated liver studies. ORIGINAL REPORT - 04-Aug-2016 08:18:00 EXAM: ??US Abdomen Complete with limited color and spectral Doppler analysis COMPARISON: ??CT 08/03/2016 Procedure Note Felipe Brand M.D. - 02/13/2018 04-Aug-2016 08:08:00 Exam: US Abd Cmpl with Doppler Lmtd Indications: [id number]/US ABDOMEN WITH DOPPLER/liver diseasealcoholic/pt w/encephalopathy and heavy alcohol use w/2 cm liver noduleand elevated liver studies. ORIGINAL REPORT - 04-Aug-2016 08:18:00 EXAM: US Abdomen Complete with limited color and spectral Doppleranalysis COMPARISON: CT 08/03/2016 IMPRESSION: Indeterminate hepatic mass FINDINGS: Liver: Indeterminate 2.0 cm hepatic mass in segment IVb, corresponds tothe mass seen on the CT. This is not focal fat nor is it a typical benigncavernous hemangioma. MRI or ultrasound-guided biopsy could be considered.Slightly abnormal configuration to the right hepatic lobe, likely due toremote parenchymal insult. Spleen: Normal. Spleen length: 9.5 cm. Doppler: Splenic, portal, and hepatic veins are patent with antegradeflow. The main hepatic artery is patent with antegrade flow. IVC: Normal where seen. Gallbladder: Cholelithiasis. Mildly contracted with associated mildnonspecific gallbladder wall thickening. Negative sonographic Lan'ssign.. Intrahepatic ducts: Not dilated. Common duct: Not dilated. Pancreas: Complex 4.2 x 1.8 x 4.0 cm mixed solid and cystic mass adjacentthe tail the pancreas and splenic hilum, seen on yesterday's CT. If thereis a history of pancreatitis, this probably represents an oldperipancreatic fluid collection. Hematoma remains a consideration. Giventhe indeterminate hepatic mass, a pancreatic neoplasm remains a veryremote consideration. Right kidney: No hydronephrosis. Renal length: 10.3 cm. Left kidney: No hydronephrosis. Renal length: 10.7 cm. Aorta: Normal caliber. Ascites: Trace amount. Bilateral pleural effusions. Electronically signed by: Tasneem Brand M.D. [id number] 04-Aug-2016 08:18 Jacqueline RING US PROCEDURES from Last 3 Months or Most Recently Relevant to Health Maintenance Care Teams Weld Lay Out Worker Relationship Specialty Start Date End Date Elsewhere, Pcp PCP - General 12/07/19
--- OUTSIDE RECORDS SUMMARY | 2024-03-19 10:35 | XMS_ITS | Referral Summary ---
Author Name Unknown Organization [facility] Address [address] [place] [address] Care Team Providers Care Engineering Department Chair Name Role Phone Jez Burnham MD Primary Care Provider [phone] Allergies No known active allergies Medications Medication [...] Information Patient not taking.Reported on 10/23/2021 Aspirin Buf,VfKgpy-SgPpvm-P gO, 81 MG TABS Take 81 mg by mouth A ctive cholecalciferol (VITAMIN D3) 10 mcg (400 units) TABS tablet Daily 08/16/2021 Active lisinopril (ZESTRIL) 2.5 MG tablet 03/14/2020 Active metoprolol succinate ER (TOPROL-XL) 25 MG 24 hr tablet 03/14/2020 Active omeprazole (PRILOSEC) [address] capsule Take 20 mg by mouth Activ e atorvastatin (LIPITOR) 40 MG tablet 10/05/2021 Active omega 3 1000 MG CAPS Active Social History Tobacco Use Types Packs/Day [...] Comments Blood Pressure 131/80 10/23/2021 3:00 PM MANAGER FLORAL Pulse 97 10/23/2021 3:00 PM MANAGER FLORAL Temperature - - Respiratory Rate 18 10/23/2021 3:00 PM MANAGER FLORAL Oxygen Saturation 98% 10/23/2021 3:00 PM MANAGER FLORAL Inhaled Oxygen Concentration - - Weight 68.5 kg (151 lb) 10/23/2021 3:00 PM MANAGER FLORAL Height 167.6 cm (5' 6) 10/23/2021 3:00 PM MANAGER FLORAL Body Mass Index 24.37 10/23/2021 3:00 PM MANAGER FLORAL Plan of Treatment Not on file Care Teams Engineering Department Chair Relationship Specialty Start Date End Date Jez Burnham MD PCP - General Family Medicine 10/09/21
--- OUTSIDE RECORDS SUMMARY | 2024-03-19 10:35 | XMS_ITS ---
Author Name Unknown Organization [facility] Address [address] [place] [address] Care Team Providers Care Bioengineer Name Role Phone Unavailable Unavailable Unavailable Surgery Details Not on file Complications Check Surgery Details section. Procedure Estimated Blood Loss Check Surgery Details section. Procedure Findings Check Surgery Details section. Procedure Specimens Taken Check Surgery Details section.
--- OUTSIDE RECORDS SUMMARY | 2024-03-19 10:35 | XMS_ITS | Clinical Summary ---
Author Name Unknown Organization [facility] Address [address] [place] [address] Care Team Providers Care Marketing Recruiter Name Role Phone Jez Burnham MD Primary Care Provider [phone] Allergies No known active allergies Medications Medication [...] Information Patient not taking.Reported on 10/23/2021 Aspirin Buf,NzBdaf-MdXbvl-M gO, 81 MG TABS Take 81 mg [...] Comments Blood Pressure 131/80 10/23/2021 3:00 PM FOAMITE MIXER Pulse 97 10/23/2021 3:00 PM FOAMITE MIXER Temperature - - Respiratory Rate 18 10/23/2021 3:00 PM FOAMITE MIXER Oxygen Saturation 98% 10/23/2021 3:00 PM FOAMITE MIXER Inhaled Oxygen Concentration - - Weight 68.5 kg (151 lb) 10/23/2021 3:00 PM FOAMITE MIXER Height 167.6 cm (5' 6) 10/23/2021 3:00 PM FOAMITE MIXER Body Mass Index 24.37 10/23/2021 3:00 PM FOAMITE MIXER Plan of Treatment Health Maintenance Due Date Last Done Comments ADVANCE CARE PLANNING 1955 ANNUAL REVIEW OF HM ORDERS 1955 CT COLONOGRAPHY 1955 FIT 1955 FLEX SIG 1955 GLUCOSE 1955 LIPID 1955 sDNA (Cologuard) 1955 COLONOSCOPY 02/25/1964 COLORECTAL CANCER SCREENING 02/25/1964 HEPATITIS C SCREENING 02/25/1972 LUNG CANCER SCREENING 02/25/2004 RSV VACCINE ( & 60+) (1 - 1-dose 60+ series) 2014 MEDICARE ANNUAL WELLNESS VISIT 2019 Pneumococcal Vaccine: [...] age to complete this topic Care Teams Marketing Recruiter Relationship Specialty Start Date End Date Jez Burnham MD PCP - General Family Medicine 10/09/21
--- OUTSIDE RECORDS SUMMARY | 2024-03-19 10:35 | XMS_ITS ---
Author Name Unknown Organization [facility] Address [address] [place] [address] Care Team Providers Care Drier Tender Naphthalene Name Role Phone Elsewhere, Pcp Primary Care [...] Treated Prescribed Fraction Dose Prescribed Total Dose [id number] 09/27/2023 11 10 300 cGy 3,000 cGy Reference Point Last Treated On Elapsed Days Session Dose Total Dose [id number] 09/27/2023 11 300 cGy 3,000 cGy
--- OUTSIDE RECORDS SUMMARY | 2024-03-19 10:35 | XMS_ITS | Referral Summary ---
Author Name Unknown Organization [facility] Address [address] [place] [address] Care Team Providers Care Liquor Store Manager Name Role Phone Elsewhere, Pcp Primary Care Provider Unavailabl e Source Comments Patient records contain information from all sites at [facility]. For routine questions regarding patient records, call [phone] during business hours, M-F 8:00 AM - 5:00 PM Central Time. Record requests for emergency care only can be directed to [phone] at any time.[facility] Allergies No known active allergies Medications Medication [...] 200 mg by mouth. 07/28/2023 Active omega 0-mao-gdc-fish oil (fish oil) 1,000 mg (120 mg-180 [...] Comments Blood Pressure 148/72 09/26/2023 11:10 AM EQUIPMENT MAN Pulse 90 09/26/2023 11:10 AM EQUIPMENT MAN Temperature 36.6 ??C (97.8 ??F) 09/26/2023 1 1:10 AM EQUIPMENT MAN Respiratory Rate 16 08/08/2016 10:0 7 AM CDT Value from Chartplus. Oxygen Saturation - - Inhaled Oxygen Concentration - - Weight 64.2 kg (141 lb 8.6 oz) 09/26/2023 11:10 AM EQUIPMENT MAN Height 167 cm (5' 5.75) 08/02/2016 8:0 [...] System IMG NM PROCEDURES Performing Organization Address [facility]/ZIP Co de Phone Number IINY NA * HCV AB Scrn w/Reflex to HCV PCR, S (08/07/2016 5:30 AM CDT) HCV Ab Screen, S Negative Negative [facility] Comment:Pocwtv-wf-tauhiv rat io is <1.00. 08/07/2016 5:30 AM CDT 08/07/2016 5:30 AM CDT Urbano Ibarra M.D., Ph.D. LAB MICROBIOLOGY - BLOOD ORDERABLES [facility] [address] [place] [address], [place] * (ABNORMAL) Electrolyte (Chem 4) Panel (08/06/2016 4:23 AM CDT) Sodium, S 140 135 - 145 MMOL/L [facility] Potassium, S 4.1 3.6 - 5.2 MMOL/L [facility] eGFR-Black/Afri can Russian >60 >60 ML/MIN/BSA [facility] BUN (Blood Urea Nitrogen), S 18 8 - 24 MG/DL [facility] Chloride, S 99 98 - 107 MMOL/L [facility] HX Bicarbonate, P/S 27 22 - 29 MMOL/L [facility] Creatinine 1.3 0.8 - 1.3 MG/DL [facility] eGFR Non-Black/Afric an Russian 56(L) >60 ML/MIN/BSA [facility] Anion Gap 14 7 - 15 [facility] Glucose, S 95 70 - 140 MG/DL [facility] 08/06/2016 4:23 AM CDT 08/06/2016 4:23 AM CDT Urbano Ibarra M.D., Ph.D. LAB BLOOD ADD-ON [facility] [address] * US Abdomen and Abdomen Doppler (08/04/2016 [...] US Abd Cmpl with Doppler Lmtd Indications: [id number]/US ABDOMEN WITH DOPPLER/liver disease alcoholic/pt w/encephalopathy and heavy alcohol use w/2 cm liver nodule and elevated liver studies. ORIGINAL REPORT - 04-Aug-2016 08:18:00 EXAM: ??US Abdomen Complete with limited color and spectral Doppler analysis COMPARISON: ??CT 08/03/2016 Procedure Note Felipe Brand M.D. - 02/13/2018 04-Aug-2016 08:08:00 Exam: US Abd Cmpl with Doppler Lmtd Indications: [id number]/US ABDOMEN WITH DOPPLER/liver diseasealcoholic/pt w/encephalopathy and heavy [...] effusions. Electronically signed by: Tasneem Brand M.D. [id number] 04-Aug-2016 08:18 Jacqueline Tineo M.D. IMG US PROCEDURES from Last 3 Months or Most Recently Relevant to Health Maintenance Care Teams Liquor Store Manager Relationship Specialty Start Date End Date Elsewhere, Pcp PCP - General 12/07/19
--- NOTE | 2024-03-19 11:15 | MR_ITS ---
Patient: DIOGENES CRUZ Facility:?[facility] Patient ID:?[id number] Site Patient ID:?[id number]. Site :?[id number] Study:?MRI-Head W/ and W/O Cont 15 CC DOTAREM-03/19/2024 11:34:58 AM Ordering Physician:?JESUSITA HENRIQUEZ Final Report: Indication: Lung cancer, evaluate for intracranial metastasis. Technique: Multisequence multiplanar MRI of the brain prior to and following administration of 15 cc Dotarem gadolinium based intravenous contrast. Comparison: MRI brain dated 12/16/2023. Findings: No evidence of acute ischemia. Similar scattered foci of T2 prolongation within the supratentorial white matter of both cerebral hemispheres. 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 Punctate focus of susceptibility in the left frontal lobe (series 7, image 36) no focus of abnormal or suspicious contrast enhancement. Similar mild diffuse parenchymal volume loss. No ventricular obstruction. Flow is preserved within the larger intracranial arteries. No suspicious calvarial lesion. Unremarkable orbits. Mild ethmoid and left maxillary sinus mucosal thickening. Trace left mastoid effusion. Impression: 1. No evidence of intracranial metastasis. 2. No acute intracranial abnormality. 3. Similar mild diffuse parenchymal volume loss and chronic small vessel ischemic changes. 4. 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 5. Punctate focus of susceptibility artifact in the left frontal lobe consistent with sequela of prior microhemorrhage. Dictated by Vineet Gotti MD @ 03/20/2024 9:11:28 AM Signed by:?Vineet Gotti MD @03/20/2024 9:11:28 AM (Electronic Signature)
== END 2024-03-19 10:33 | disposition home or self-care (01) ==
LOC: MRI 10:33
PROVIDERS: PCP Family Medicine; Visit Provider Internal Medicine Hematology & Oncology
DX: C34.90 Malignant neoplasm of unspecified part of unspecified bronchus or lung (principal); I67.82 Cerebral ischemia; I25.2 Old myocardial infarction
CPT/HCPCS: 70553; A9575

== ENCOUNTER 2024-05-26 09:02 | Outpatient (CLI) | payer MEDICARE, BC, SELFPAY ==
--- OUTSIDE RECORDS SUMMARY | 2024-05-26 09:05 | XMS_ITS | Referral Summary ---
Author Organization [facility] Address [address] [place] [address] Care Team Providers Care Baker Bench Name Role Phone Jez Burnham MD Primary Care Provider [phone] Allergies No known active allergies Medications Medication [...] Information Patient not taking.Reported on 10/23/2021 Aspirin Buf,QgZvib-KdVvpu-Q gO, 81 MG TABS Take 81 mg [...] Comments Blood Pressure 131/80 10/23/2021 3:00 PM CMS EXPERT Pulse 97 10/23/2021 3:00 PM CMS EXPERT Temperature - - Respiratory Rate 18 10/23/2021 3:00 PM CMS EXPERT Oxygen Saturation 98% 10/23/2021 3:00 PM CMS EXPERT Inhaled Oxygen Concentration - - Weight 68.5 kg (151 lb) 10/23/2021 3:00 PM CMS EXPERT Height 167.6 cm (5' 6) 10/23/2021 3:00 PM CMS EXPERT Body Mass Index 24.37 10/23/2021 3:00 PM CMS EXPERT Plan of Treatment Not on file Care Teams Baker Bench Relationship Specialty Start Date End Date Jez Burnham MD PCP - General Family Medicine 10/09/21
--- OUTSIDE RECORDS SUMMARY | 2024-05-26 09:05 | XMS_ITS ---
Author Organization [facility] Address [address] [place] [address] Care Team Providers Care Public Policy Analyst Name Role Phone Unavailable Unavailable Unavailable Surgery Details Not on file Complications Check Surgery Details section. Procedure Estimated Blood Loss Check Surgery Details section. Procedure Findings Check Surgery Details section. Procedure Specimens Taken Check Surgery Details section.
--- OUTSIDE RECORDS SUMMARY | 2024-05-26 09:05 | XMS_ITS | Referral Summary ---
Author Organization [facility] Address [address] [place] [address] Care Team Providers Care Logging Rafter Laborer Name Role Phone Elsewhere, Pcp Primary Care Provider Unavailabl e Source Comments Patient records contain information from all sites at [facility]. For routine questions regarding patient records, call [phone] during business hours, M-F 8:00 AM - 5:00 PM Central Time. Record requests for emergency care only can be directed to [phone] at any time.[facility] Allergies No known active allergies Medications [...] 200 mg by mouth. 07/28/2023 Active omega 9-uni-pgq-fish oil (fish oil) 1,000 mg (120 mg-180 [...] Comments Blood Pressure 148/72 09/26/2023 11:10 AM FOUNDER CEO & PRESIDENT Pulse 90 09/26/2023 11:10 AM FOUNDER CEO & PRESIDENT Temperature 36.6 ??C (97.8 ??F) 09/26/2023 1 1:10 AM FOUNDER CEO & PRESIDENT Respiratory Rate 16 08/08/2016 10:0 7 AM CDT Value from Chartplus. Oxygen Saturation - - Inhaled Oxygen Concentration - - Weight 64.2 kg (141 lb 8.6 oz) 09/26/2023 11:10 AM FOUNDER CEO & PRESIDENT Height 167 cm (5' 5.75) 08/02/2016 8:0 [...] System IMG NM PROCEDURES Performing Organization Address City/[facility]/ZIP Co de Phone Number [facility] NA * HCV AB Scrn w/Reflex to HCV PCR, S (08/07/2016 5:30 AM CDT) HCV Ab Screen, S Negative Negative [facility] Comment:Nykgfq-ba-uviyts rat io is <1.00. 08/07/2016 5:30 AM CDT 08/07/2016 5:30 AM CDT Urbano Ibarra M.D., Ph.D. LAB MICROBIOLOGY - BLOOD ORDERABLES [facility] [address] [place] [address], [facility] * (ABNORMAL) Electrolyte (Chem 4) Panel (08/06/2016 4:23 AM CDT) Sodium, S 140 135 - 145 MMOL/L [facility] Potassium, S 4.1 3.6 - 5.2 MMOL/L [facility] eGFR-Black/Afri can Yemeni >60 >60 ML/MIN/BSA [facility] BUN (Blood Urea Nitrogen), S 18 8 - 24 MG/DL [facility] Chloride, S 99 98 - 107 MMOL/L [facility] HX Bicarbonate, P/S 27 22 - 29 MMOL/L [facility] Creatinine 1.3 0.8 - 1.3 MG/DL [facility] eGFR Non-Black/Afric an Yemeni 56(L) >60 ML/MIN/BSA [facility] Anion Gap 14 7 - 15 [facility] Glucose, S 95 70 - 140 MG/DL [facility] 08/06/2016 4:23 AM CDT 08/06/2016 4:23 AM CDT Urbano Ibarra M.D., Ph.D. LAB BLOOD ADD-ON [facility] [address] * US Abdomen and Abdomen Doppler [...] US Abd Cmpl with Doppler Lmtd Indications: [id number] ABDOMEN WITH DOPPLER/liver disease alcoholic/pt w/encephalopathy and heavy alcohol use w/2 cm liver nodule and elevated liver studies. ORIGINAL REPORT - 04-Aug-2016 08:18:00 EXAM: ??US Abdomen Complete with limited color and spectral Doppler analysis COMPARISON: ??CT 08/03/2016 Procedure Note Felipe Brand M.D. - 02/13/2018 04-Aug-2016 08:08:00 Exam: US Abd Cmpl with Doppler Lmtd Indications: [id number] ABDOMEN WITH DOPPLER/liver diseasealcoholic/pt w/encephalopathy and heavy [...] effusions. Electronically signed by: Tasneem Brand M.D. [id number] 04-Aug-2016 08:18 Jacqueline Tineo M.D. IMG US PROCEDURES from Last 3 Months or Most Recently Relevant to Health Maintenance Care Teams Logging Rafter Laborer Relationship Specialty Start Date End Date Elsewhere, Pcp PCP - General 12/07/19
--- OUTSIDE RECORDS SUMMARY | 2024-05-26 09:05 | XMS_ITS | Clinical Summary ---
Author Organization [facility] Address [place], [place] [address] Care Team Providers Care Powder Compounder Name Role Phone Andrei Burnham MD Primary Care Provider [phone] Allergies No known active allergies Medications Medication [...] 05/30/2018 05/30/2013, 01/01/2007, 03/15/2006, Additional history exists Pneumococcal series for age 65+ (1 of 1 - PCV) 2019 COVID-19 vaccine series ( season) 2023 12/05/2021, 02/22/2021, 01/25/2021 Influenza for age 65+ 07/19/2024 Medical Devices Implanted Type Area Turret Punch Press Operator Device Identifier Shelf Expiration Date Model / Serial / Lot Patch Vasc 0.8x8cm Biological Peripatch - [id number] Implanted:Qty: 1 on 10/07/2013 by Devin Cardoza MD at [facility] Left: Carotid Artery [employer] 06/17/2016 0.8P8# / / [id number] Procedures Procedure Name Priority Date/Time Associated Diagnosis Comments LIPID PANEL Early AM 05/30/2013 5:25 AM CDT from Last 3 Months or Most Recently Relevant to Health Maintenance Results * Lipid Panel - In AM (05/30/2013 5:25 AM CDT) CHOLESTEROL,TOTA L 112 100 - 199 mg/dL [facility] TRIGLYCERIDES 126 <150 mg/dL [facility] HDL CHOLESTEROL 49 >40 mg/dL [facility] CHOL/HDL RATIO 2.29 <4.50 [facility] NON-HDL CHOLESTEROL 63 Undefined mg/dL [facility] LDL CHOLESTEROL 38 <131 mg/dL [facility] PATIENT STATUS Fasting [facility] Blood specimen (specimen) BLOOD SPECIMEN / Unknown 05/30/2013 5:25 AM CDT 05/29/2013 11:10 PM CDT Pranav Bennett MD CHEMISTRY [facility] INTERNAL ZIP [address] [address] [place] [address] from Last 3 Months or Most Recently [...] 11:10 PM 05/31/2013 3:24 PM Care Teams Powder Compounder Relationship Specialty Start Date End Date Andrei Burnham MD PCP - General Family Practice 06/08/13
--- OUTSIDE RECORDS SUMMARY | 2024-05-26 09:05 | XMS_ITS ---
Author Organization [facility] Address [address] [place] [address] Care Team Providers Care French Pastry Cook Name Role Phone Elsewhere, Pcp Primary Care [...] Treated Prescribed Fraction Dose Prescribed Total Dose [id number] 09/27/2023 11 10 of 300 cGy 3,000 cGy Reference Point Last Treated On Elapsed Days Session Dose Total Dose [id number] 09/27/2023 11 300 cGy 3,000 cGy
--- OUTSIDE RECORDS SUMMARY | 2024-05-26 09:05 | XMS_ITS | Clinical Summary ---
Author Organization [facility] Address [address] [place] [address] Care Team Providers Care Parliamentary Archivist Name Role Phone Elsewhere, Pcp Primary Care Provider Unavailabl e Source Comments Patient records contain information from all sites at [facility]. For routine questions regarding patient records, call [phone] during business hours, M-F 8:00 AM - 5:00 PM Central Time. Record requests for emergency care only can be directed to [phone] at any time.[facility] Allergies No known active allergies Medications [...] 200 mg by mouth. 07/28/2023 Active omega 9-nud-axw-fish oil (fish oil) 1,000 mg (120 mg-180 [...] Comments Blood Pressure 148/72 09/26/2023 11:10 AM SHOP HELPER Pulse 90 09/26/2023 11:10 AM SHOP HELPER Temperature 36.6 ??C (97.8 ??F) 09/26/2023 1 1:10 AM SHOP HELPER Respiratory Rate 16 08/08/2016 10:0 7 AM CDT Value from Chart[facility]. Oxygen Saturation - - Inhaled Oxygen Concentration - - Weight 64.2 kg (141 lb 8.6 oz) 09/26/2023 11:10 AM SHOP HELPER Height 167 cm (5' 5.75) 08/02/2016 8:0 [...] 08/04/2016, Additional history exists COVID-19 Vaccine ( season) 2023 09/07/2023, 09/13/2022, 12/05/2021, Additional history exists Depression Screening (Annual PHQ-2) 11/18/2023 Fall Risk Screen (Annual) 11/18/2023 Influenza Vaccine (#1) 2024 3, 08/29/2022, 08/16/2021, Additional history exists DTaP,Tdap,and Td Vaccines (3 - Td or Tdap) 08/16/2031 08/16/2021, 02/27/2012, 12/25/2005 Abdominal Aortic Aneurysm (AAA) Screen Completed 08/04/2016, 08/03/2016 Hepatitis C Screening Completed 08/07/2016 Zoster Vaccines Completed 12/10/2018, 09/18, 09/21/2014 HPV Vaccines Aged Out No longer eligi [...] Provider Not In System IMG NM PROCEDURES [facility] NA * HCV AB Scrn w/Reflex to HCV PCR, S (08/07/2016 5:30 AM CDT) HCV Ab Screen, S Negative Negative [facility] Comment:Wqrlhi-bz-wbmdkf rat io is <1.00. 08/07/2016 5:30 AM CDT 08/07/2016 5:30 AM CDT Urbano Ibarra M.D., Ph.D. LAB MICROBIOLOGY - BLOOD ORDERABLES Performing Organization Address City/[facility] Co de Phone Number [facility] [address] * (ABNORMAL) Electrolyte (Chem 4) Panel (08/06/2016 4:23 AM CDT) Sodium, S 140 135 - 145 MMOL/L [facility] Potassium, S 4.1 3.6 - 5.2 MMOL/L [facility] eGFR-Black/Afri can Djiboutian >60 >60 ML/MIN/BSA [facility] BUN (Blood Urea Nitrogen), S 18 8 - 24 MG/DL [facility] Chloride, S 99 98 - 107 MMOL/L [facility] HX Bicarbonate, P/S 27 22 - 29 MMOL/L [facility] Creatinine 1.3 0.8 - 1.3 MG/DL [facility] eGFR Non-Black/Afric an Djiboutian 56(L) >60 ML/MIN/BSA [facility] Anion Gap 14 7 - 15 [facility] Glucose, S 95 70 - 140 MG/DL [facility] 08/06/2016 4:23 AM CDT 08/06/2016 4:23 AM CDT Urbano Ibarra M.D., Ph.D. LAB BLOOD ADD-ON [facility] [address] [place], [place] [address] * US Abdomen and Abdomen Doppler (08/04/2016 [...] US Abd Cmpl with Doppler Lmtd Indications: [id number] ABDOMEN WITH DOPPLER/liver disease alcoholic/pt w/encephalopathy and heavy alcohol use w/2 cm liver nodule and elevated liver studies. ORIGINAL REPORT - 04-Aug-2016 08:18:00 EXAM: ??US Abdomen Complete with limited color and spectral Doppler analysis COMPARISON: ??CT 08/03/2016 Procedure Note Felipe Brand M.D. - 02/13/2018 04-Aug-2016 08:08:00 Exam: US Abd Cmpl with Doppler Lmtd Indications: [id number]/US ABDOMEN WITH DOPPLER/liver diseasealcoholic/pt w/encephalopathy and heavy [...] effusions. Electronically signed by: Tasneem Brand M.D. [id number] 04-Aug-2016 08:18 Jacqueline Tineo M.D. IMDustin US PROCEDURES from Last 3 Months or Most Recently Relevant to Health Maintenance Care Teams Parliamentary Archivist Relationship Specialty Start Date End Date Elsewhere, Pcp PCP - General 12/07/19
--- OUTSIDE RECORDS SUMMARY | 2024-05-26 09:05 | XMS_ITS | Clinical Summary ---
Author Organization [facility] Address [address] [place] [address] Care Team Providers Care Electronic Court Recorder Name Role Phone Jez Burnham MD Primary Care Provider [phone] Allergies No known active allergies Medications Medication [...] Information Patient not taking.Reported on 10/23/2021 Aspirin Buf,RzWmfv-YpLspk-W gO, 81 MG TABS Take 81 mg [...] Comments Blood Pressure 131/80 10/23/2021 3:00 PM SENIOR ORACLE DEVELOPER Pulse 97 10/23/2021 3:00 PM SENIOR ORACLE DEVELOPER Temperature - - Respiratory Rate 18 10/23/2021 3:00 PM SENIOR ORACLE DEVELOPER Oxygen Saturation 98% 10/23/2021 3:00 PM SENIOR ORACLE DEVELOPER Inhaled Oxygen Concentration - - Weight 68.5 kg (151 lb) 10/23/2021 3:00 PM SENIOR ORACLE DEVELOPER Height 167.6 cm (5' 6) 10/23/2021 3:00 PM SENIOR ORACLE DEVELOPER Body Mass Index 24.37 10/23/2021 3:00 PM SENIOR ORACLE DEVELOPER Plan of Treatment Health Maintenance Due Date [...] ASSESSMENT 10/23/2022 10/23/2021 COVID-19 Vaccine (3 - season) 2023 02/22/2021, 01/25/2021 PHQ-2 (once per calendar year) 2023 INFLUENZA VACCINE (#1) 2024 , 08/16/2021, 09/05/2020, Additional history exists DTAP/TDAP/TD IMMUNIZATION (4 - Td or Tdap) [...] age to complete this topic Care Teams Electronic Court Recorder Relationship Specialty Start Date End Date Jez Burnham MD PCP - General Family Medicine 10/09/21
--- NOTE | 2024-05-26 10:22 | P.ANES_ITS ---
Anesthesia Charges Start Date/Time Anesthesia Start Date: 05/26/24 Anesthesia Start Time: 09:58 Stop Date/Time Anesthesia Stop Date: 05/26/24 Anesthesia Stop Time: 10:17 Summary Extremes of Age - Over 70 or under 1: AGRICULTURAL EDUCATION PROFESSOR
[2024-05-26 12:07] LABS: C.Difficile Negative (Negative); CDIFFEPI 027 PRESUMPTIVE NEGATIVE (Negative)
[2024-05-28 23:29] LABS: Ova and Parasite, Fecal Negative (Negative)
== END 2024-05-26 09:03 | disposition home or self-care (01) ==
LOC: OP CLINIC 09:03
PROVIDERS: PCP Family Medicine; Visit Provider Internal Medicine
DX: K52.9 Noninfective gastroenteritis and colitis, unspecified (principal); K63.5 Polyp of colon
CPT/HCPCS: 00811; 45380; 87045; 87046; 87177; 87209; 87427; 87493; 88305; 99100; J2704

== ENCOUNTER 2024-06-02 09:19 | Outpatient (CLI) | payer MEDICARE, BC, SELFPAY ==
--- OUTSIDE RECORDS SUMMARY | 2024-06-02 09:21 | XMS_ITS ---
Author Organization [facility] Address [address] [place] [address] Care Team Providers Care Materials And Corrosion Engineer Name Role Phone Elsewhere, Pcp Primary [...] Treated Prescribed Fraction Dose Prescribed Total Dose [id number] 09/27/2023 11 10 of 300 cGy 3,000 cGy Reference Point Last Treated On Elapsed Days Session Dose Total Dose [id number] 09/27/2023 11 300 cGy 3,000 cGy
--- OUTSIDE RECORDS SUMMARY | 2024-06-02 09:21 | XMS_ITS | Referral Summary ---
Author Organization [facility] Address [address] [place] [address] Care Team Providers Care Short Story Writer Name Role Phone Elsewhere, Pcp Primary Care Provider Unavailabl e Source Comments Patient records contain information from all sites at [facility]. For routine questions regarding patient records, call [phone] during business hours, M-F 8:00 AM - 5:00 PM Central Time. Record requests for emergency care only can be directed to [phone] at any time.[facility] Allergies No known active allergies Medications Medication [...] 200 mg by mouth. 07/28/2023 Active omega 6-dov-ngb-fish oil (fish oil) 1,000 mg (120 mg-180 [...] Comments Blood Pressure 148/72 09/26/2023 11:10 AM GILL BOX OPERATOR Pulse 90 09/26/2023 11:10 AM GILL BOX OPERATOR Temperature 36.6 ??C (97.8 ??F) 09/26/2023 1 1:10 AM GILL BOX OPERATOR Respiratory Rate 16 08/08/2016 10:0 7 AM CDT Value from Chartplus. Oxygen Saturation - - Inhaled Oxygen Concentration - - Weight 64.2 kg (141 lb 8.6 oz) 09/26/2023 11:10 AM GILL BOX OPERATOR Height 167 cm (5' 5.75) 08/02/2016 [...] System IMG NM PROCEDURES Performing Organization Address City/[facility]/ZIP Co de Phone Number [facility] NA * HCV AB Scrn w/Reflex to HCV PCR, S (08/07/2016 5:30 AM CDT) HCV Ab Screen, S Negative Negative [facility] Comment:Qvvjhv-hs-jiyrlf rat io is <1.00. 08/07/2016 5:30 AM CDT 08/07/2016 5:30 AM CDT Urbano Ibarra M.D., Ph.D. LAB MICROBIOLOGY - BLOOD ORDERABLES [facility] [address] [place] [address], [facility] * (ABNORMAL) Electrolyte (Chem 4) Panel (08/06/2016 4:23 AM CDT) Sodium, S 140 135 - 145 MMOL/L [facility] Potassium, S 4.1 3.6 - 5.2 MMOL/L [facility] eGFR-Black/Afri can Micronesian >60 >60 ML/MIN/BSA [facility] BUN (Blood Urea Nitrogen), S 18 8 - 24 MG/DL [facility] Chloride, S 99 98 - 107 MMOL/L [facility] HX Bicarbonate, P/S 27 22 - 29 MMOL/L [facility] Creatinine 1.3 0.8 - 1.3 MG/DL [facility] eGFR Non-Black/Afric an Micronesian 56(L) >60 ML/MIN/BSA [facility] Anion Gap 14 7 - 15 [facility] Glucose, S 95 70 - 140 MG/DL [facility] 08/06/2016 4:23 AM CDT 08/06/2016 4:23 AM CDT Urbano Ibarra M.D., Ph.D. LAB BLOOD ADD-ON [facility] [address] * US Abdomen and Abdomen Doppler [...] US Abd Cmpl with Doppler Lmtd Indications: [id number] ABDOMEN WITH DOPPLER/liver disease alcoholic/pt w/encephalopathy and heavy alcohol use w/2 cm liver nodule and elevated liver studies. ORIGINAL REPORT - 04-Aug-2016 08:18:00 EXAM: ??US Abdomen Complete with limited color and spectral Doppler analysis COMPARISON: ??CT 08/03/2016 Procedure Note Felipe Brand M.D. - 02/13/2018 04-Aug-2016 08:08:00 Exam: US Abd Cmpl with Doppler Lmtd Indications: [id number] ABDOMEN WITH DOPPLER/liver diseasealcoholic/pt w/encephalopathy and heavy [...] effusions. Electronically signed by: Tasneem Brand M.D. [id number] 04-Aug-2016 08:18 Jacqueline Tineo M.D. IMG US PROCEDURES from Last 3 Months or Most Recently Relevant to Health Maintenance Care Teams Short Story Writer Relationship Specialty Start Date End Date Elsewhere, Pcp PCP - General 12/07/19
--- OUTSIDE RECORDS SUMMARY | 2024-06-02 09:21 | XMS_ITS | Referral Summary ---
Author Organization [facility] Address [address] [place] [address] Care Team Providers Care Public Health Administrator Name Role Phone Jez Burnham MD Primary [...] Information Patient not taking.Reported on 10/23/2021 Aspirin Buf,WhMmnl-IeZhjo-X gO, 81 MG TABS Take 81 mg [...] Comments Blood Pressure 131/80 10/23/2021 3:00 PM ELEMENTARY ESL TEACHER Pulse 97 10/23/2021 3:00 PM ELEMENTARY ESL TEACHER Temperature - - Respiratory Rate 18 10/23/2021 3:00 PM ELEMENTARY ESL TEACHER Oxygen Saturation 98% 10/23/2021 3:00 PM ELEMENTARY ESL TEACHER Inhaled Oxygen Concentration - - Weight 68.5 kg (151 lb) 10/23/2021 3:00 PM ELEMENTARY ESL TEACHER Height 167.6 cm (5' 6) 10/23/2021 3:00 PM ELEMENTARY ESL TEACHER Body Mass Index 24.37 10/23/2021 3:00 PM ELEMENTARY ESL TEACHER Plan of Treatment Not on file Care Teams Public Health Administrator Relationship Specialty Start Date End Date Jez Burnham MD PCP - General Family Medicine 10/09/21
--- OUTSIDE RECORDS SUMMARY | 2024-06-02 09:21 | XMS_ITS | Clinical Summary ---
Author Organization [facility] Address [address] [place] [address] Care Team Providers Care Social Science Teacher Name Role Phone Jez Burnham MD Primary Care Provider [phone] Allergies No known active allergies Medications Medication [...] Information Patient not taking.Reported on 10/23/2021 Aspirin Buf,CzJaqw-WnSvsn-I gO, 81 MG TABS Take 81 mg [...] Comments Blood Pressure 131/80 10/23/2021 3:00 PM PLANNING ENGINEER Pulse 97 10/23/2021 3:00 PM PLANNING ENGINEER Temperature - - Respiratory Rate 18 10/23/2021 3:00 PM PLANNING ENGINEER Oxygen Saturation 98% 10/23/2021 3:00 PM PLANNING ENGINEER Inhaled Oxygen Concentration - - Weight 68.5 kg (151 lb) 10/23/2021 3:00 PM PLANNING ENGINEER Height 167.6 cm (5' 6) 10/23/2021 3:00 PM PLANNING ENGINEER Body Mass Index 24.37 10/23/2021 3:00 PM PLANNING ENGINEER Plan of Treatment Health Maintenance Due Date [...] age to complete this topic Care Teams Social Science Teacher Relationship Specialty Start Date End Date Jez Burnham MD PCP - General Family Medicine 10/09/21
--- OUTSIDE RECORDS SUMMARY | 2024-06-02 09:21 | XMS_ITS | Clinical Summary ---
Author Organization [facility] Address [address] [place] [address] Care Team Providers Care Education Consultant Name Role Phone Elsewhere, Pcp Primary Care Provider Unavailabl e Source Comments Patient records contain information from all sites at [facility]. For routine questions regarding patient records, call [phone] during business hours, M-F 8:00 AM - 5:00 PM Central Time. Record requests for emergency care only can be directed to [phone] at any time.[facility] Allergies No known active allergies Medications Medication [...] 200 mg by mouth. 07/28/2023 Active omega 7-ipr-eyk-fish oil (fish oil) 1,000 mg (120 mg-180 [...] Comments Blood Pressure 148/72 09/26/2023 11:10 AM TRANSIT PLANNING MANAGER Pulse 90 09/26/2023 11:10 AM TRANSIT PLANNING MANAGER Temperature 36.6 ??C (97.8 ??F) 09/26/2023 1 1:10 AM TRANSIT PLANNING MANAGER Respiratory Rate 16 08/08/2016 10:0 7 AM CDT Value from [facility]. Oxygen Saturation - - Inhaled Oxygen Concentration - - Weight 64.2 kg (141 lb 8.6 oz) 09/26/2023 11:10 AM TRANSIT PLANNING MANAGER Height 167 cm (5' 5.75) 08/02/2016 8:0 [...] CDT) HCV Ab Screen, S Negative Negative [facility] Comment:Nulgby-yg-hvslil rat io is <1.00. 08/07/2016 5:30 AM CDT 08/07/2016 5:30 AM CDT Urbano Ibarra M.D., Ph.D. LAB MICROBIOLOGY - BLOOD ORDERABLES Performing Organization Address City/[facility] Co de Phone Number [facility] [address] * (ABNORMAL) Electrolyte (Chem 4) Panel (08/06/2016 4:23 AM CDT) Sodium, S 140 135 - 145 MMOL/L [facility] Potassium, S 4.1 3.6 - 5.2 MMOL/L [facility] eGFR-Black/Afri can Bulgarian >60 >60 ML/MIN/BSA [facility] BUN (Blood Urea Nitrogen), S 18 8 - 24 MG/DL [facility] Chloride, S 99 98 - 107 MMOL/L [facility] HX Bicarbonate, P/S 27 22 - 29 MMOL/L [facility] Creatinine 1.3 0.8 - 1.3 MG/DL [facility] eGFR Non-Black/Afric an Bulgarian 56(L) >60 ML/MIN/BSA [facility] Anion Gap 14 7 - 15 [facility] Glucose, S 95 70 - 140 MG/DL [facility] 08/06/2016 4:23 AM CDT 08/06/2016 4:23 AM CDT Urbano Ibarra M.D., Ph.D. LAB BLOOD ADD-ON [facility] [address] [place], [place] [address] * US Abdomen and Abdomen [...] US Abd Cmpl with Doppler Lmtd Indications: [id number] ABDOMEN WITH DOPPLER/liver disease alcoholic/pt w/encephalopathy and heavy alcohol use w/2 cm liver nodule and elevated liver studies. ORIGINAL REPORT - 04-Aug-2016 08:18:00 EXAM: ??US Abdomen Complete with limited color and spectral Doppler analysis COMPARISON: ??CT 08/03/2016 Procedure Note Felipe Brand M.D. - 02/13/2018 04-Aug-2016 08:08:00 Exam: US Abd Cmpl with Doppler Lmtd Indications: [id number] ABDOMEN WITH DOPPLER/liver diseasealcoholic/pt w/encephalopathy and heavy [...] effusions. Electronically signed by: Tasneem Brand M.D. [id number] 04-Aug-2016 08:18 Jcaqueline Tineo M.D. IMDustin US PROCEDURES from Last 3 Months or Most Recently Relevant to Health Maintenance Care Teams Education Consultant Relationship Specialty Start Date End Date Elsewhere, Pcp PCP - General 12/07/19
--- OUTSIDE RECORDS SUMMARY | 2024-06-02 09:21 | XMS_ITS ---
Author Organization [facility] Address [address] [place] [address] Care Team Providers Care Type Proof Reproducer Name Role Phone Unavailable Unavailable Unavailable Surgery Details Not on file Complications Check Surgery Details section. Procedure Estimated Blood Loss Check Surgery Details section. Procedure Findings Check Surgery Details section. Procedure Specimens Taken Check Surgery Details section.
--- OUTSIDE RECORDS SUMMARY | 2024-06-02 09:21 | XMS_ITS | Clinical Summary ---
Author Organization [facility] [facility] Address [place], [place] [address] Care Team Providers Care Transition Mgr Name Role Phone Andrei Burnham MD Primary Care Provider [phone] Allergies No known active allergies Medications Medication [...] Date Resolved Date Carotid stenosis, right 09/01/201308/18 Encounters Date Type Department Care Team Description 05/26/2024 Lab Requisition [facility] [phone] Isaac Tanner MD from Last 3 Months Family History Medical History Relation Name Comments [...] 65+ 07/19/2024 Medical Devices Implanted Type Area Fisher Gill Net Device Identifier Shelf Expiration Date Model / Serial / Lot Patch Vasc 0.8x8cm Biological Peripatch - [id number] Implanted:Qty: 1 on 10/07/2013 by Devin Cardoza MD at [facility] Left: Carotid Artery [employer] 06/17/2016 0.8P8# / / [id number] Procedures Procedure Name Priority Date/Time Associated Diagnosis Comments LAB TRACKING EVENT Routine 05/26/2024 10 :10 AM CDT PATH TISSUE EXAM Routine 05/26/2024 10:1 0 AM CDT LIPID PANEL Early AM 05/30/2013 5:25 AM CDT from Last 3 Months or Most Recently Relevant to Health Maintenance Results * LAB TRACKING EVENT (05/26/2024 10:10 AM CDT) Other (Other) Client Collect / Unknown 05/26/2024 10:10 AM CDT 05/26/2024 9:56 PM CDT Isaac Tanner MD LAB BILL ONLY [facility] [address] [place] [address], * PATH TISSUE EXAM (05/26/2024 10:10 AM CDT) Case Report Pathology Report ?Case: [id number] ? Authorizing Provider: ??Isaac Tanner MD ?Collected: ? 05/26/2024 1010 ? Ordering Location: ? [facility] ?Received: ?05/27/2024 1133 ? Pathologist: ? Brayan Hutton, ? MD ? Specimens: ?? A) - Terminal Ileum Biopsy ? B) - Colon Biopsy ? C) - Ascending Colon Biopsy ? 05/28/2024 11:22 AM [facility] [employer] LABORAT[facility]-C ENTRAL LABORATORY Final Diagnosis A) TERMINAL ILEUM, BIOPSY 1. Normal ileal mucosa 2. Negative for active and chronic ileitis B) COLON, RANDOM, BIOPSY: 1. Collagenous colitis 2. See comment C) COLON, ASCENDING, POLYPECTOMY: 1. Tubular adenoma 2. Negative for high grade dysplasia 3. Per the colonoscopy report: ?? a. Polyp size: 2 mm ?? b. Resection: Complete ?? c. Retrieval: Complete 4. Background collagenous colitis 05/28/2024 11:22 AM [facility] [employer] [facility] ENTRAL LABORATORY Comment B,C) The histologic changes are typical of the collagenous colitis form of microscopic colitis. Some cases of collagenous colitis have been associated with medication use; high likelihood associations include NSAIDs, ASA, lansoprazole, ranitidine, SSRI class medications, ticlopidine, and acarbose, with many other medications having been implicated as well (Reference: Drug Exposure and the Risk of Microscopic Colitis: A Critical Update. Ilana STANFORD. ??Drugs R D. 2017 Jan;17(1):79-89 . doi: 10.1007/j67228- 016-0171-7. Review.). ?? Occasionally prolonged infectious diarrhea that occurs in outbreaks ([place] diarrhea) can show similar histologic changes. 05/28/2024 11:22 AM CDT [facility] Clinical Information Chronic diarrhea 05/28/2024 11:22 AM CDT [facility] Gross Description A) Received in formalin is a elizondo mucosal fragment measuring 5 mm in greatest dimension, which is entirely submitted in one cassette. It is labeled with the patient's name and designated terminal ileum. B) Received in formalin are 5 elizondo mucosal fragments averaging 2 mm in greatest dimension, which are entirely submitted in one cassette. It is labeled with the patient's name and designated random colon. C) Received in formalin are 3 elizondo mucosal fragments averaging 2 mm in greatest dimension, which are entirely submitted in one cassette. It is labeled with the patient's name and designated ascending polyp. Kirsten Tasneem Prescott 05/27/2024 11:54 AM 05/28/2024 11:22 AM CDT [facility] Microscopic Description The final diagnosis is based on microscopic examination of appropriate sections of all specimens. 05/28/2024 11:22 AM CDT [facility] Additional Information Interpreted at [facility] Laboratory - [address] [place] [address] [facility] [address], [place] [address] 05/28/2024 11:22 AM CDT [facility] Other (Terminal Ileum Biopsy) 05/26/2024 10:10 AM CDT 05/27/2024 11:33 AM CDT Specimen (specimen) (Colon Biopsy) 05/26/2024 10:10 AM CDT 05/27/2024 11:33 AM CDT Specimen (specimen) (Ascending Colon Biopsy) 05/26/2024 10:10 AM CDT 05/27/2024 11:33 AM CDT Isaac Tanner MD PATHOLOGY/CYTOLOGY [facility]ORY [address] [place] [address], * Lipid Panel - In AM (05/30/2013 5:25 AM CDT) CHOLESTEROL,TOTA L 112 100 - 199 mg/dL [facility] TRIGLYCERIDES 126 <150 mg/dL [facility] HDL CHOLESTEROL 49 >40 mg/dL [facility] CHOL/HDL RATIO 2.29 <4.50 [facility] NON-HDL CHOLESTEROL 63 Undefined mg/dL [facility] LDL CHOLESTEROL 38 <131 mg/dL [facility] PATIENT STATUS Fasting [facility] Blood specimen (specimen) BLOOD SPECIMEN / Unknown 05/30/2013 5:25 AM CDT 05/29/2013 11:10 PM CDT Pranav Bennett MD CHEMISTRY [facility] [place]NAL ZIP [address] [place] [address] from Last 3 Months or Most Recently [...] 11:10 PM 05/31/2013 3:24 PM Care Teams Transition Mgr Relationship Specialty Start Date End Date Andrei Burnham MD PCP - General Family Practice 06/08/13
--- NOTE | 2024-06-02 10:15 | CRLHL7_ITS ---
For Patients: As a result of the Century Cures Act, medical imaging exams and procedure reports are released immediately into your electronic medical record. You may view this report before your referring provider. If you have questions, please contact your health care provider. INDICATION: Small-cell lung cancer. Evaluate for intracranial metastatic disease. TECHNIQUE: Brain MRI with and without contrast. 13 cc gadolinium based contrast administered. COMPARISON: Brain MRI from 03/19/2024. FINDINGS: No evidence of acute ischemia. No evidence of acute or chronic intracranial blood products. No mass or pathologic intracranial enhancement. Small chronic cortical infarct within the right middle frontal gyrus. Scattered FLAIR hyperintensities within the supratentorial white matter, typical for chronic microvascular ischemic change. Moderate generalized parenchymal volume loss. No hydrocephalus or extra-axial collections. 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 Small chronic infarction within the left central cerebellum. All the major intracranial vascular structures demonstrate normal flow-related signal. The orbital contents are normal. No calvarial or skull base marrow signal abnormality. Polypoid mucosal thickening left maxillary sinus alveolar recess. A trace left mastoid effusion. No extracranial soft tissue findings. IMPRESSION: 1. No evidence of intracranial metastatic disease. 2. No acute ischemia or other acute intracranial pathology. 3. Mild chronic microvascular ischemic changes. 4. 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 Dictated by Massimo Harley MD @ 06/03/2024 6:40:28 AM (Electronically Signed)
== END 2024-06-02 09:20 | disposition home or self-care (01) ==
LOC: MRI 09:19
PROVIDERS: PCP Family Medicine; Visit Provider Internal Medicine Hematology & Oncology
DX: C34.90 Malignant neoplasm of unspecified part of unspecified bronchus or lung (principal); I67.82 Cerebral ischemia
CPT/HCPCS: 70553; A9575

== ENCOUNTER 2024-06-04 15:31 | Outpatient (CLI) | payer MEDICARE, BC, SELFPAY ==
--- OUTSIDE RECORDS SUMMARY | 2024-06-04 15:34 | XMS_ITS | Clinical Summary ---
Author Organization [facility] Address [address] [place] [address] Care Team Providers Care Expeditionary Fighting Vehicle Crewman Name Role Phone Jez Burnham MD Primary Care Provider [phone] Allergies No known active allergies Medications Medication [...] Information Patient not taking.Reported on 10/23/2021 Aspirin Buf,AxYluf-AdQokz-H gO, 81 MG TABS Take 81 mg [...] Comments Blood Pressure 131/80 10/23/2021 3:00 PM AGENCY APPOINTMENTS SUPERVISOR Pulse 97 10/23/2021 3:00 PM AGENCY APPOINTMENTS SUPERVISOR Temperature - - Respiratory Rate 18 10/23/2021 3:00 PM AGENCY APPOINTMENTS SUPERVISOR Oxygen Saturation 98% 10/23/2021 3:00 PM AGENCY APPOINTMENTS SUPERVISOR Inhaled Oxygen Concentration - - Weight 68.5 kg (151 lb) 10/23/2021 3:00 PM AGENCY APPOINTMENTS SUPERVISOR Height 167.6 cm (5' 6) 10/23/2021 3:00 PM AGENCY APPOINTMENTS SUPERVISOR Body Mass Index 24.37 10/23/2021 3:00 PM AGENCY APPOINTMENTS SUPERVISOR Plan of Treatment Health Maintenance Due Date [...] age to complete this topic Care Teams Expeditionary Fighting Vehicle Crewman Relationship Specialty Start Date End Date Jez Burnham MD PCP - General Family Medicine 10/09/21
--- OUTSIDE RECORDS SUMMARY | 2024-06-04 15:34 | XMS_ITS | Clinical Summary ---
Author Organization [facility] Address [place], [place] [address] Care Team Providers Care Staff Respiratory Therapist Name Role Phone Andrei Burnham MD Primary Care Provider [phone] Allergies No known active allergies Medications Medication [...] Department Care Team Description 05/26/2024 Lab Requisition [facility] [phone] Isaac Tanner MD from Last 3 Months [...] 65+ 07/19/2024 Medical Devices Implanted Type Area Sterile Proc Tech Device Identifier Shelf Expiration Date Model / Serial / Lot Patch Vasc 0.8x8cm Biological Peripatch - [id number] Implanted:Qty: 1 on 10/07/2013 by Devin Cardoza MD at [facility] Left: Carotid Artery [employer] 06/17/2016 0.8P8# / / [id number] Procedures Procedure Name Priority Date/Time Associated Diagnosis [...] CDT Isaac Tanner MD LAB BILL ONLY [facility]AT[facility]-CENTRAL LABORATORY [address] [place] [address], * PATH TISSUE EXAM (05/26/2024 10:10 AM CDT) Case Report Pathology Report ?Case: [id number] ? Authorizing Provider: ??Isaac Tanner MD ?Collected: ? 05/26/2024 1010 ? Ordering Location: ? [facility] ?Received: ?05/27/2024 1133 ? Pathologist: ? Brayan Hutton, ? MD ? Specimens: ?? A) - Terminal Ileum Biopsy ? B) - Colon Biopsy ? C) - Ascending Colon Biopsy ? 05/28/2024 11:22 AM [facility]ORAT[facility]-C ENTRAL LABORATORY Final Diagnosis A) TERMINAL [...] Background collagenous colitis 05/28/2024 11:22 AM [facility] LABORATORY Comment B,C) The histologic [...] ??Drugs R D. 2017 Jan;17(1):79-89 . doi: 10.1007/s15269- 016-0171-7. Review.). ?? Occasionally prolonged infectious diarrhea that occurs in outbreaks ([place] diarrhea) can show similar histologic changes. 05/28/2024 11:22 AM CDT [facility] Clinical Information Chronic diarrhea 05/28/2024 11:22 AM CDT [facility] Gross Description A) Received [...] AND HOME LABORATORY Additional Information Interpreted at [facility] Laboratory - [address] [place] [address] S[facility] [address], [place] [address] 05/28/2024 11:22 AM CDT [facility] Other (Terminal Ileum Biopsy) 05/26/2024 10:10 AM CDT 05/27/2024 11:33 AM CDT Specimen (specimen) (Colon Biopsy) 05/26/2024 10:10 AM CDT 05/27/2024 11:33 AM CDT Specimen (specimen) (Ascending Colon Biopsy) 05/26/2024 10:10 AM CDT 05/27/2024 11:33 AM CDT Isaac Tanner MD PATHOLOGY/CYTOLOGY [facility] LAB[facility] [address] [place] [address], * Lipid Panel - In AM (05/30/2013 5:25 AM CDT) CHOLESTEROL,TOTA L 112 100 - 199 mg/dL [facility] TRIGLYCERIDES 126 <150 mg/dL [facility] HDL CHOLESTEROL 49 >40 mg/dL [facility] CHOL/HDL RATIO 2.29 <4.50 [facility] NON-HDL CHOLESTEROL 63 Undefined mg/dL [facility] LDL CHOLESTEROL 38 <131 mg/dL [facility] PATIENT STATUS Fasting [facility] Blood specimen (specimen) BLOOD SPECIMEN / Unknown 05/30/2013 5:25 AM CDT 05/29/2013 11:10 PM CDT Pranav Bennett MD CHEMISTRY [facility] [place]NAL ZIP [address] [place] [id number] from Last 3 Months or Most Recently [...] 11:10 PM 05/31/2013 3:24 PM Care Teams Staff Respiratory Therapist Relationship Specialty Start Date End Date Andrei Burnham MD PCP - General Family Practice 06/08/13
--- OUTSIDE RECORDS SUMMARY | 2024-06-04 15:34 | XMS_ITS ---
Author Organization [facility] Address [address] [place] [address] Care Team Providers Care Syrup Maker Cook Name Role Phone Unavailable Unavailable Unavailable Surgery Details Not on file Complications Check Surgery Details section. Procedure Estimated Blood Loss Check Surgery Details section. Procedure Findings Check Surgery Details section. Procedure Specimens Taken Check Surgery Details section.
--- OUTSIDE RECORDS SUMMARY | 2024-06-04 15:34 | XMS_ITS | Referral Summary ---
Author Organization [facility] Address [address] [place] [address] Care Team Providers Care Picking Table Worker Name Role Phone Jez Burnham MD Primary Care Provider [phone] Allergies No known active allergies Medications Medication [...] Information Patient not taking.Reported on 10/23/2021 Aspirin Buf,BaZtkk-PrTiyq-H gO, 81 MG TABS Take 81 mg [...] Comments Blood Pressure 131/80 10/23/2021 3:00 PM CHIEF OF FIELD OPERATIONS Pulse 97 10/23/2021 3:00 PM CHIEF OF FIELD OPERATIONS Temperature - - Respiratory Rate 18 10/23/2021 3:00 PM CHIEF OF FIELD OPERATIONS Oxygen Saturation 98% 10/23/2021 3:00 PM CHIEF OF FIELD OPERATIONS Inhaled Oxygen Concentration - - Weight 68.5 kg (151 lb) 10/23/2021 3:00 PM CHIEF OF FIELD OPERATIONS Height 167.6 cm (5' 6) 10/23/2021 3:00 PM CHIEF OF FIELD OPERATIONS Body Mass Index 24.37 10/23/2021 3:00 PM CHIEF OF FIELD OPERATIONS Plan of Treatment Not on file Care Teams Picking Table Worker Relationship Specialty Start Date End Date Jez Burnham MD PCP - General Family Medicine 10/09/21
--- OUTSIDE RECORDS SUMMARY | 2024-06-04 15:34 | XMS_ITS ---
Author Organization [facility] Address [address] [place] [address] Care Team Providers Care Control Supervisor Name Role Phone Elsewhere, Pcp Primary Care [...] Treated Prescribed Fraction Dose Prescribed Total Dose [id number] 09/27/2023 11 10 of 300 cGy 3,000 cGy Reference Point Last Treated On Elapsed Days Session Dose Total Dose [id number] 09/27/2023 11 300 cGy 3,000 cGy
--- OUTSIDE RECORDS SUMMARY | 2024-06-04 15:34 | XMS_ITS | Referral Summary ---
Author Organization [facility] Address [address] [place] [address] Care Team Providers Care Project Administrative Assistant Name Role Phone Elsewhere, Pcp Primary Care Provider Unavailabl e Source Comments Patient records contain information from all sites at [facility]. For routine questions regarding patient records, call [phone] during business hours, M-F 8:00 AM - 5:00 PM Central Time. Record requests for emergency care only can be directed to [phone] at any time.[facility] Allergies No known active allergies Medications [...] 200 mg by mouth. 07/28/2023 Active omega 9-ytc-rhw-fish oil (fish oil) 1,000 mg (120 mg-180 [...] Comments Blood Pressure 148/72 09/26/2023 11:10 AM FORESTRY FIRE AID Pulse 90 09/26/2023 11:10 AM FORESTRY FIRE AID Temperature 36.6 ??C (97.8 ??F) 09/26/2023 1 1:10 AM FORESTRY FIRE AID Respiratory Rate 16 08/08/2016 10:0 7 AM CDT Value from [employer]. Oxygen Saturation - - Inhaled Oxygen Concentration - - Weight 64.2 kg (141 lb 8.6 oz) 09/26/2023 11:10 AM FORESTRY FIRE AID Height 167 cm (5' 5.75) 08/02/2016 8:0 [...] System IMG NM PROCEDURES Performing Organization Address City/[facility]/ZIP Co de Phone Number [facility] NA * HCV AB Scrn w/Reflex to HCV PCR, S (08/07/2016 5:30 AM CDT) HCV Ab Screen, S Negative Negative [facility] Comment:Fckvug-hx-wxjaxs rat io is <1.00. 08/07/2016 5:30 AM CDT 08/07/2016 5:30 AM CDT Urbano Ibarra M.D., Ph.D. LAB MICROBIOLOGY - BLOOD ORDERABLES [facility] [address] [place] [address], [facility] * (ABNORMAL) Electrolyte (Chem 4) Panel (08/06/2016 4:23 AM CDT) Sodium, S 140 135 - 145 MMOL/L [facility] Potassium, S 4.1 3.6 - 5.2 MMOL/L [facility] eGFR-Black/Afri can [place] >60 >60 ML/MIN/BSA [facility] BUN (Blood Urea Nitrogen), S 18 8 - 24 MG/DL [facility] Chloride, S 99 98 - 107 MMOL/L [facility] HX Bicarbonate, P/S 27 22 - 29 MMOL/L [facility] Creatinine 1.3 0.8 - 1.3 MG/DL [facility] eGFR Non-Black/Afric an [place] 56(L) >60 ML/MIN/BSA [facility] Anion Gap 14 7 - 15 [facility] Glucose, S 95 70 - 140 MG/DL [facility] 08/06/2016 4:23 AM CDT 08/06/2016 4:23 AM CDT Urbano Ibarra M.D., Ph.D. LAB BLOOD ADD-ON [facility] [address] * US Abdomen and Abdomen Doppler [...] US Abd Cmpl with Doppler Lmtd Indications: [id number] ABDOMEN WITH DOPPLER/liver disease alcoholic/pt w/encephalopathy and heavy alcohol use w/2 cm liver nodule and elevated liver studies. ORIGINAL REPORT - 04-Aug-2016 08:18:00 EXAM: ??US Abdomen Complete with limited color and spectral Doppler analysis COMPARISON: ??CT 08/03/2016 Procedure Note Felipe Brand M.D. - 02/13/2018 04-Aug-2016 08:08:00 Exam: US Abd Cmpl with Doppler Lmtd Indications: [id number] ABDOMEN WITH DOPPLER/liver diseasealcoholic/pt w/encephalopathy and heavy [...] effusions. Electronically signed by: Tasneem Brand M.D. [id number] 04-Aug-2016 08:18 Jacqueline Tineo M.D. IMG US PROCEDURES from Last 3 Months or Most Recently Relevant to Health Maintenance Care Teams Project Administrative Assistant Relationship Specialty Start Date End Date Elsewhere, Pcp PCP - General 12/07/19
--- OUTSIDE RECORDS SUMMARY | 2024-06-04 15:34 | XMS_ITS | Clinical Summary ---
Author Organization [facility] Address [address] [place] [address] Care Team Providers Care Varnishing Unit Operator Name Role Phone Elsewhere, Pcp Primary Care Provider Unavailabl e Source Comments Patient records contain information from all sites at [facility]. For routine questions regarding patient records, call [phone] during business hours, M-F 8:00 AM - 5:00 PM Central Time. Record requests for emergency care only can be directed to [phone] at any time.[facility] Allergies No known active allergies [...] 200 mg by mouth. 07/28/2023 Active omega 6-vso-xrr-fish oil (fish oil) 1,000 mg (120 mg-180 [...] Comments Blood Pressure 148/72 09/26/2023 11:10 AM CELLOPHANE WRAPPING EXAMINER Pulse 90 09/26/2023 11:10 AM CELLOPHANE WRAPPING EXAMINER Temperature 36.6 ??C (97.8 ??F) 09/26/2023 1 1:10 AM CELLOPHANE WRAPPING EXAMINER Respiratory Rate 16 08/08/2016 10:0 7 AM CDT Value from [employer]. Oxygen Saturation - - Inhaled Oxygen Concentration - - Weight 64.2 kg (141 lb 8.6 oz) 09/26/2023 11:10 AM CELLOPHANE WRAPPING EXAMINER Height 167 cm (5' 5.75) 08/02/2016 8:0 [...] CDT) HCV Ab Screen, S Negative Negative [facility] Comment:Bqwgcl-be-usuoio rat io is <1.00. 08/07/2016 5:30 AM CDT 08/07/2016 5:30 AM CDT Urbano Ibarra M.D., Ph.D. LAB MICROBIOLOGY - BLOOD ORDERABLES Performing Organization Address City/[facility] Co de Phone Number [facility] [address] * (ABNORMAL) Electrolyte (Chem 4) Panel (08/06/2016 4:23 AM CDT) Sodium, S 140 135 - 145 MMOL/L [facility] Potassium, S 4.1 3.6 - 5.2 MMOL/L [facility] eGFR-Black/Afri can Austrian >60 >60 ML/MIN/BSA [facility] BUN (Blood Urea Nitrogen), S 18 8 - 24 MG/DL [facility] Chloride, S 99 98 - 107 MMOL/L [facility] HX Bicarbonate, P/S 27 22 - 29 MMOL/L [facility] Creatinine 1.3 0.8 - 1.3 MG/DL [facility] eGFR Non-Black/Afric an Austrian 56(L) >60 ML/MIN/BSA [facility] Anion Gap 14 7 - 15 [facility] Glucose, S 95 70 - 140 MG/DL [facility] 08/06/2016 4:23 AM CDT 08/06/2016 4:23 AM CDT Urbano Ibarra M.D., Ph.D. LAB BLOOD ADD-ON [facility] [address] [place], [place] [address] * US Abdomen and [...] US Abd Cmpl with Doppler Lmtd Indications: [id number] ABDOMEN WITH DOPPLER/liver disease alcoholic/pt w/encephalopathy and heavy alcohol use w/2 cm liver nodule and elevated liver studies. ORIGINAL REPORT - 04-Aug-2016 08:18:00 EXAM: ??US Abdomen Complete with limited color and spectral Doppler analysis COMPARISON: ??CT 08/03/2016 Procedure Note Felipe Brand M.D. - 02/13/2018 04-Aug-2016 08:08:00 Exam: US Abd Cmpl with Doppler Lmtd Indications: [id number] ABDOMEN WITH DOPPLER/liver diseasealcoholic/pt w/encephalopathy and heavy [...] effusions. Electronically signed by: Tasneem Brand M.D. [id number] 04-Aug-2016 08:18 Jacqueline iTneo M.D. [facility] US PROCEDURES from Last 3 Months or Most Recently Relevant to Health Maintenance Care Teams Varnishing Unit Operator Relationship Specialty Start Date End Date Elsewhere, Pcp PCP - General 12/07/19
--- NOTE | 2024-06-04 17:00 | PE_ITS ---
[facility] [address] [facility] [address] Phone:?[phone] Fax:?[phone] Referring Physician Information: Maci Nascimento M.D. [address] [facility] [address] Phone:?[phone] Fax:?[phone] Patient:Neva Castrejon D.O.B:?1955 Sex:?Male Phone:?[phone] [facility] MRN:?[id number] Exam Date:?06/04/2024 EXAM: PET/CT EYES TO THIGHS, CANCER RESTAGING CLINICAL INFORMATION: Small cell lung cancer, restaging. TECHNICAL INFORMATION: Helical acquisition of data was obtained from the orbits to the upper thighs with reconstruction of 3.75 mm thick images at 3.[address] data was used for attenuation correction. PET scanning was performed through the same anatomic range 60 minutes following administration of 12.04 mCi of 18-FDG delivered intravenously. The patient's glucose at the time of the injection was 101 mg/dL. PET, CT and PET/CT fusion images are interpreted using a computer viewing workstation. PET, CT and PET/CT fusion images were archived and saved in the patient's permanent medical record. COMPARISON: PET CTs from 03/12/2024 and 12/19/2023. INTERPRETATION: Head and Neck: There are no abnormal hypermetabolic foci within the head or neck. There is physiologic uptake in the intracranial soft tissues. Chest: The patient is mildly hypermetabolic lymph nodes are similar to before. Index lesions include: ...a) right hilar node (Se 2 Im 103) has a maximum SUV of 3.55, previously 3.11 (February) and 2.91 (December). ...b) subcarinal node (Se 2 Im 116) has a maximum SUV of 4.94, previously 8.17 (February) and 2.61 (December). Background mediastinal blood pool uptake has a maximum SUV of 2.68. A few stable 5-6 mm nodules are stable and without hypermetabolism. No new or enlarging nodules detected on this free-breathing exam. Abdomen and Pelvis: There are no abnormal hypermetabolic foci within the abdomen or pelvis. Background hepatic parenchymal uptake has a maximum SUV of 2.95. There is physiologic excretion of radiotracer in the urine and bowel. Skeleton, Musculature, and Integument: No abnormal hypermetabolic foci within the skeleton. No carlito osteoblastic or osteolytic disease. CONCLUSION: Stable exam. The patient's mildly hypermetabolic intrathoracic lymph nodes are essentially unchanged, allowing for technical differences. No new or enlarging sites of disease detected. Electronically signed on 06/05/2024 1:03:00 PM by Walt Mcallister M.D.
== END 2024-06-04 15:32 | disposition home or self-care (01) ==
LOC: RAD 15:32
PROVIDERS: PCP Family Medicine; Visit Provider Internal Medicine Hematology & Oncology
DX: C34.90 Malignant neoplasm of unspecified part of unspecified bronchus or lung (principal)
CPT/HCPCS: 78815; A9552

== ENCOUNTER 2024-06-04 15:45 | Outpatient (RCR) | payer MEDICARE, BC, SELFPAY ==
[2023-12-10 14:42] LABS: Basophils Absolute Auto 0.02 K/uL (0.00-0.30); Basophils Percent Auto 0.4 % (0.0-3.0); Eosinophils Absolute Auto 0.07 K/uL (0.00-0.50); Eosinophils Percent Auto 1.5 % (0.0-7.0); Hematocrit 38.5 % (37.0-53.0); Hemoglobin* 12.5 gm/dL (13.5-17.5); Immature Granulocytes Abs Auto 0.01 K/uL (0.00-0.30); Immature Granulocytes Pct Auto 0.2 %; Lymphocytes Percent Auto 19.1 % (20-44); Mean Corpuscular HGB Conc 33 gm/dL (32-36); Mean Corpuscular Hemoglobin 33 pg (26-34); Mean Corpuscular Volume 102 fL (80-100); Monocytes Percent Auto 12.9 % (0.0-11.0); Neutrophils Absolute Auto 3.07 K/uL (1.7-7.0); Neutrophils Percent Auto 65.9 % (42.0-72.0); Platelet Count* 129 K/uL (140-440); RDW Coefficient of Variation % 13.2 % (11.5-15.5); Red Blood Count 3.79 m/uL (4.30-5.90); White Blood Count* 4.66 K/uL (4.50-11.00)
[2023-12-10 14:43] LABS: Slide Review Reflex No
[2023-12-10 15:00] LABS: Albumin* 4.6 g/dL (3.3-5.0); Chloride* 105 mmol/L (96-114); Sodium* 139 mmol/L (135-149)
[2023-12-10 15:01] LABS: Potassium* 4.4 mmol/L (3.6-5.1)
[2023-12-10 15:03] LABS: Alanine Aminotransferase* 28 U/L (4-50); Alkaline Phosphatase* 61 U/L (40-150); Anion Gap 9 mEq/L (7-15); Aspartate Amino Transferase* 33 U/L (12-35); Bilirubin Total* 0.5 mg/dL (0.1-1.5); Blood Urea Nitrogen* 32 mg/dL (7-30); Carbon Dioxide* 25 mmol/L (20-32); Creatinine* 1.5 mg/dL (0.5-1.5); Estimated Glomerular Filt Rate 50 ml/min; Total Protein* 7.4 g/dL (6.0-8.3)
[2023-12-10 15:04] LABS: Calcium* 9.4 mg/dL (8.4-10.6); Glucose* 123 mg/dL (60-115)
[2023-12-11 08:15] VITALS: BP 150/84; PULSE 99; RESP 16; TEMP 36.1; O2SAT 96
[2023-12-11] MEDS: 0.9 % SODIUM CHLORIDE 250 ml IV (12:48)
[2023-12-11] MEDS: SODIUM CHLORIDE 0.9 % (FLUSH) 10 ML SYRINGE IVF (12:48)
--- NOTE | 2023-12-11 15:46 | ONC.NURNOTE ---
Pt. is documenting his blood pressure and heart rate. He has been taken off Norvasc and Lisinopril per Dr. Burnham for low BP. He is still taking Metoprolol 25mg every am. states took this am. Heart reg with occ PAC/PVC. denies chestpain, sob, Asymtomatic. enc him to go to ER or call 911 if symptomatic. bp today 139/79. Heart rate 99. Ok to treat. Pt is making apt to see Dr Burnham for follow up.
[2024-01-01 14:28] LABS: Basophils Absolute Auto 0.02 K/uL (0.00-0.30); Basophils Percent Auto 0.4 % (0.0-3.0); Eosinophils Absolute Auto 0.07 K/uL (0.00-0.50); Eosinophils Percent Auto 1.3 % (0.0-7.0); Hematocrit 35.6 % (37.0-53.0); Hemoglobin* 11.7 gm/dL (13.5-17.5); Immature Granulocytes Abs Auto 0.02 K/uL (0.00-0.30); Immature Granulocytes Pct Auto 0.4 %; Mean Corpuscular HGB Conc 33 gm/dL (32-36); Mean Corpuscular Hemoglobin 33 pg (26-34); Mean Corpuscular Volume 100 fL (80-100); Monocytes Percent Auto 12.5 % (0.0-11.0); Neutrophils Absolute Auto 3.72 K/uL (1.7-7.0); Neutrophils Percent Auto 69.4 % (42.0-72.0); Platelet Count* 116 K/uL (140-440); RDW Coefficient of Variation % 13.9 % (11.5-15.5); Red Blood Count 3.55 m/uL (4.30-5.90); White Blood Count* 5.36 K/uL (4.50-11.00)
[2024-01-01 14:33] LABS: Slide Review Reflex No
[2024-01-01 14:41] LABS: Albumin* 4.4 g/dL (3.3-5.0); Chloride* 103 mmol/L (96-114); Sodium* 137 mmol/L (135-149)
[2024-01-01 14:42] LABS: Potassium* 4.6 mmol/L (3.6-5.1)
[2024-01-01 14:44] LABS: Alkaline Phosphatase* 63 U/L (40-150); Anion Gap 9 mEq/L (7-15); Aspartate Amino Transferase* 32 U/L (12-35); Bilirubin Total* 0.6 mg/dL (0.1-1.5); Blood Urea Nitrogen* 35 mg/dL (7-30); Carbon Dioxide* 25 mmol/L (20-32); Creatinine* 1.5 mg/dL (0.5-1.5); Estimated Glomerular Filt Rate 50 ml/min; Total Protein* 7.4 g/dL (6.0-8.3)
[2024-01-01 14:45] LABS: Alanine Aminotransferase* 24 U/L (4-50); Calcium* 9.5 mg/dL (8.4-10.6); Cholesterol* 152 mg/dL (90-199); Glucose* 103 mg/dL (60-115); HDL Cholesterol* 83 mg/dL (>=40); LDL Cholesterol Calculated 50 mg/dL (<100); Triglycerides* 94 mg/dL (40-149)
[2024-01-01 15:15] LABS: Thyroid Stimulating Hormone* 0.923 uIU/mL (0.270-4.20)
[2024-01-01 15:16] LABS: PSA Screen* 1.38 ng/mL (0.10-4.00)
[2024-01-01 15:35] LABS: Vitamin B12* 547 pg/mL (243-894)
[2024-01-02 08:58] VITALS: BP 99/65; PULSE 98; RESP 16; TEMP 36.8; O2SAT 98
[2024-01-02] MEDS: SODIUM CHLORIDE 0.9 % (FLUSH) 10 ML SYRINGE IVF ×2 (09:30→10:16)
[2024-01-02] MEDS: 0.9 % SODIUM CHLORIDE 250 ml IV (09:46)
[2024-01-02] MEDS: HEPARIN 500 UNIT/5 ML SYRINGE IVF (10:16)
[2024-01-27 10:03] LABS: Basophils Absolute Auto 0.02 K/uL (0.00-0.30); Basophils Percent Auto 0.3 % (0.0-3.0); Eosinophils Absolute Auto 0.36 K/uL (0.00-0.50); Eosinophils Percent Auto 5.9 % (0.0-7.0); Hemoglobin* 11.6 gm/dL (13.5-17.5); Immature Granulocytes Abs Auto 0.02 K/uL (0.00-0.30); Immature Granulocytes Pct Auto 0.3 %; Lymphocytes Percent Auto 10.9 % (20-44); Mean Corpuscular HGB Conc 32 gm/dL (32-36); Mean Corpuscular Hemoglobin 32 pg (26-34); Mean Corpuscular Volume 100 fL (80-100); Neutrophils Absolute Auto 4.04 K/uL (1.7-7.0); Neutrophils Percent Auto 66.6 % (42.0-72.0); Platelet Count* 159 K/uL (140-440); RDW Coefficient of Variation % 14.4 % (11.5-15.5); Red Blood Count 3.61 m/uL (4.30-5.90); White Blood Count* 6.07 K/uL (4.50-11.00)
[2024-01-27 10:07] LABS: Albumin* 4.4 g/dL (3.3-5.0); Chloride* 102 mmol/L (96-114); Sodium* 137 mmol/L (135-149)
[2024-01-27 10:08] LABS: Potassium* 4.5 mmol/L (3.6-5.1)
[2024-01-27 10:09] LABS: Creatinine* 1.5 mg/dL (0.5-1.5); Estimated Glomerular Filt Rate 50 ml/min; Slide Review Reflex No
[2024-01-27 10:10] LABS: Alkaline Phosphatase* 73 U/L (40-150); Anion Gap 10 mEq/L (7-15); Aspartate Amino Transferase* 31 U/L (12-35); Bilirubin Total* 0.6 mg/dL (0.1-1.5); Blood Urea Nitrogen* 28 mg/dL (7-30); Carbon Dioxide* 25 mmol/L (20-32); Glucose* 112 mg/dL (60-115); Total Protein* 7.4 g/dL (6.0-8.3)
[2024-01-27 10:11] LABS: Alanine Aminotransferase* 18 U/L (4-50); Calcium* 9.5 mg/dL (8.4-10.6); Magnesium* 1.9 mg/dL (1.5-2.6)
[2024-01-27 11:38] LABS: Thyroid Stimulating Hormone* 0.718 uIU/mL (0.270-4.20)
[2024-01-28 10:03] VITALS: BP 115/65; PULSE 102; RESP 16; TEMP 36.7; O2SAT 93
[2024-01-28] MEDS: SODIUM CHLORIDE 0.9 % (FLUSH) 10 ML SYRINGE IVF ×2 (10:43→11:26)
[2024-01-28] MEDS: HEPARIN 500 UNIT/5 ML SYRINGE IVF (11:25)
[2024-02-17] MEDS: SODIUM CHLORIDE 0.9 % (FLUSH) 10 ML SYRINGE IVF (08:52)
[2024-02-17] MEDS: HEPARIN 500 UNIT/5 ML SYRINGE IVF (08:52)
[2024-02-17 08:53] LABS: Basophils Absolute Auto 0.02 K/uL (0.00-0.30); Basophils Percent Auto 0.4 % (0.0-3.0); Eosinophils Absolute Auto 0.24 K/uL (0.00-0.50); Eosinophils Percent Auto 5.2 % (0.0-7.0); Hematocrit 36.8 % (37.0-53.0); Hemoglobin* 11.9 gm/dL (13.5-17.5); Immature Granulocytes Abs Auto 0.02 K/uL (0.00-0.30); Immature Granulocytes Pct Auto 0.4 %; Lymphocytes Absolute Auto 0.98 K/uL (0.90-2.90); Lymphocytes Percent Auto 21.3 % (20-44); Mean Corpuscular HGB Conc 32 gm/dL (32-36); Mean Corpuscular Hemoglobin 33 pg (26-34); Mean Corpuscular Volume 101 fL (80-100); Neutrophils Absolute Auto 2.79 K/uL (1.7-7.0); Neutrophils Percent Auto 60.7 % (42.0-72.0); Platelet Count* 145 K/uL (140-440); RDW Coefficient of Variation % 14.4 % (11.5-15.5); Red Blood Count 3.63 m/uL (4.30-5.90)
[2024-02-17 08:56] LABS: Slide Review Reflex No
[2024-02-17 09:05] LABS: Albumin* 4.4 g/dL (3.3-5.0); Chloride* 107 mmol/L (96-114); Potassium* 4.4 mmol/L (3.6-5.1); Sodium* 141 mmol/L (135-149)
[2024-02-17 09:08] LABS: Alanine Aminotransferase* 18 U/L (4-50); Alkaline Phosphatase* 62 U/L (40-150); Anion Gap 10 mEq/L (7-15); Aspartate Amino Transferase* 28 U/L (12-35); Bilirubin Total* 0.4 mg/dL (0.1-1.5); Blood Urea Nitrogen* 25 mg/dL (7-30); Calcium* 9.3 mg/dL (8.4-10.6); Carbon Dioxide* 24 mmol/L (20-32); Creatinine* 1.5 mg/dL (0.5-1.5); Estimated Glomerular Filt Rate 50 ml/min; Glucose* 103 mg/dL (60-115); Total Protein* 7.3 g/dL (6.0-8.3)
[2024-02-18] MEDS: SODIUM CHLORIDE 0.9 % (FLUSH) 10 ML SYRINGE IVF ×2 (09:17→10:15)
[2024-02-18] MEDS: 0.9 % SODIUM CHLORIDE 250 ml IV (09:17)
[2024-02-18] MEDS: HEPARIN 500 UNIT/5 ML SYRINGE IVF (10:15)
[2024-03-09 09:32] LABS: Basophils Absolute Auto 0.03 K/uL (0.00-0.30); Basophils Percent Auto 0.7 % (0.0-3.0); Eosinophils Absolute Auto 0.13 K/uL (0.00-0.50); Eosinophils Percent Auto 2.9 % (0.0-7.0); Hematocrit 38.1 % (37.0-53.0); Hemoglobin* 12.3 gm/dL (13.5-17.5); Immature Granulocytes Abs Auto 0.02 K/uL (0.00-0.30); Immature Granulocytes Pct Auto 0.4 %; Lymphocytes Absolute Auto 0.92 K/uL (0.90-2.90); Lymphocytes Percent Auto 20.4 % (20-44); Mean Corpuscular HGB Conc 32 gm/dL (32-36); Mean Corpuscular Hemoglobin 33 pg (26-34); Mean Corpuscular Volume 101 fL (80-100); Monocytes Percent Auto 12.2 % (0.0-11.0); Neutrophils Absolute Auto 2.87 K/uL (1.7-7.0); Neutrophils Percent Auto 63.4 % (42.0-72.0); Platelet Count* 139 K/uL (140-440); RDW Coefficient of Variation % 14.1 % (11.5-15.5); Red Blood Count 3.76 m/uL (4.30-5.90); White Blood Count* 4.52 K/uL (4.50-11.00)
[2024-03-09 09:33] LABS: Slide Review Reflex No
[2024-03-09 09:34] LABS: Albumin* 4.3 g/dL (3.3-5.0); Chloride* 109 mmol/L (96-114); Potassium* 4.4 mmol/L (3.6-5.1); Sodium* 140 mmol/L (135-149)
[2024-03-09 09:37] LABS: Alanine Aminotransferase* 20 U/L (4-50); Alkaline Phosphatase* 80 U/L (40-150); Anion Gap 7 mEq/L (7-15); Aspartate Amino Transferase* 30 U/L (12-35); Bilirubin Total* 0.4 mg/dL (0.1-1.5); Blood Urea Nitrogen* 27 mg/dL (7-30); Carbon Dioxide* 24 mmol/L (20-32); Creatinine* 1.3 mg/dL (0.5-1.5); Estimated Glomerular Filt Rate 59 ml/min; Glucose* 82 mg/dL (60-115); Total Protein* 7.1 g/dL (6.0-8.3)
[2024-03-09 09:38] LABS: Calcium* 9.2 mg/dL (8.4-10.6)
[2024-03-10 08:01] VITALS: BP 120/73; PULSE 86; RESP 16; TEMP 36.8; O2SAT 96
[2024-03-10] MEDS: 0.9 % SODIUM CHLORIDE 250 ml IV (09:00)
[2024-03-10] MEDS: SODIUM CHLORIDE 0.9 % (FLUSH) 10 ML SYRINGE IVF (09:10)
[2024-03-10] MEDS: HEPARIN 500 UNIT/5 ML SYRINGE IVF (09:10)
[2024-03-12] MEDS: HEPARIN 500 UNIT/5 ML SYRINGE IVF (13:11)
[2024-03-12] MEDS: SODIUM CHLORIDE 0.9 % (FLUSH) 10 ML SYRINGE IVF (13:11)
[2024-03-19] MEDS: HEPARIN 500 UNIT/5 ML SYRINGE IVF (11:27)
[2024-03-19] MEDS: SODIUM CHLORIDE 0.9 % (FLUSH) 10 ML SYRINGE IVF (11:27)
[2024-03-30 08:18] LABS: Basophils Absolute Auto 0.04 K/uL (0.00-0.30); Basophils Percent Auto 0.8 % (0.0-3.0); Eosinophils Absolute Auto 0.14 K/uL (0.00-0.50); Eosinophils Percent Auto 2.7 % (0.0-7.0); Hematocrit 38.9 % (37.0-53.0); Hemoglobin* 12.8 gm/dL (13.5-17.5); Immature Granulocytes Abs Auto 0.02 K/uL (0.00-0.30); Immature Granulocytes Pct Auto 0.4 %; Lymphocytes Absolute Auto 1.07 K/uL (0.90-2.90); Lymphocytes Percent Auto 20.9 % (20-44); Mean Corpuscular HGB Conc 33 gm/dL (32-36); Mean Corpuscular Hemoglobin 33 pg (26-34); Mean Corpuscular Volume 100 fL (80-100); Monocytes Percent Auto 10.2 % (0.0-11.0); Neutrophils Absolute Auto 3.33 K/uL (1.7-7.0); Platelet Count* 133 K/uL (140-440); RDW Coefficient of Variation % 13.6 % (11.5-15.5); Red Blood Count 3.88 m/uL (4.30-5.90); White Blood Count* 5.12 K/uL (4.50-11.00)
[2024-03-30 08:20] LABS: Slide Review Reflex No
[2024-03-30] MEDS: HEPARIN 500 UNIT/5 ML SYRINGE IVF (08:22)
[2024-03-30] MEDS: SODIUM CHLORIDE 0.9 % (FLUSH) 10 ML SYRINGE IVF (08:23)
[2024-03-30 10:54] LABS: Albumin* 4.3 g/dL (3.3-5.0); Chloride* 105 mmol/L (96-114)
[2024-03-30 10:55] LABS: Potassium* 3.7 mmol/L (3.6-5.1); Sodium* 139 mmol/L (135-149)
[2024-03-30 10:57] LABS: Alkaline Phosphatase* 66 U/L (40-150); Anion Gap 9 mEq/L (7-15); Aspartate Amino Transferase* 46 U/L (12-35); Bilirubin Total* 0.4 mg/dL (0.1-1.5); Blood Urea Nitrogen* 25 mg/dL (7-30); Carbon Dioxide* 25 mmol/L (20-32); Creatinine* 1.4 mg/dL (0.5-1.5); Estimated Glomerular Filt Rate 54 ml/min; Total Protein* 7.3 g/dL (6.0-8.3)
[2024-03-30 10:58] LABS: Alanine Aminotransferase* 28 U/L (4-50); Calcium* 9.3 mg/dL (8.4-10.6); Glucose* 87 mg/dL (60-115)
[2024-03-31 10:11] VITALS: BP 131/82; PULSE 101; RESP 16; TEMP 36.4; O2SAT 95
[2024-03-31] MEDS: 0.9 % SODIUM CHLORIDE 250 ml IV (10:34)
[2024-03-31] MEDS: SODIUM CHLORIDE 0.9 % (FLUSH) 10 ML SYRINGE IVF ×2 (10:35→11:11)
[2024-03-31] MEDS: HEPARIN 500 UNIT/5 ML SYRINGE IVF (11:11)
[2024-04-20 08:25] LABS: Basophils Absolute Auto 0.04 K/uL (0.00-0.30); Basophils Percent Auto 0.8 % (0.0-3.0); Eosinophils Absolute Auto 0.08 K/uL (0.00-0.50); Eosinophils Percent Auto 1.6 % (0.0-7.0); Hematocrit 38.5 % (37.0-53.0); Hemoglobin* 12.4 gm/dL (13.5-17.5); Immature Granulocytes Abs Auto 0.01 K/uL (0.00-0.30); Immature Granulocytes Pct Auto 0.2 %; Lymphocytes Percent Auto 18.3 % (20-44); Mean Corpuscular HGB Conc 32 gm/dL (32-36); Mean Corpuscular Hemoglobin 33 pg (26-34); Mean Corpuscular Volume 102 fL (80-100); Monocytes Percent Auto 15.7 % (0.0-11.0); Neutrophils Absolute Auto 3.19 K/uL (1.7-7.0); Neutrophils Percent Auto 63.4 % (42.0-72.0); Platelet Count* 114 K/uL (140-440); RDW Coefficient of Variation % 14.3 % (11.5-15.5); Red Blood Count 3.79 m/uL (4.30-5.90); White Blood Count* 5.03 K/uL (4.50-11.00)
[2024-04-20 08:28] LABS: Slide Review Reflex No
[2024-04-20 08:37] LABS: Albumin* 4.5 g/dL (3.3-5.0); Chloride* 103 mmol/L (96-114); Sodium* 138 mmol/L (135-149)
[2024-04-20 08:40] LABS: Alanine Aminotransferase* 26 U/L (4-50); Alkaline Phosphatase* 78 U/L (40-150); Anion Gap 7 mEq/L (7-15); Aspartate Amino Transferase* 35 U/L (12-35); Bilirubin Total* 1.1 mg/dL (0.1-1.5); Blood Urea Nitrogen* 20 mg/dL (7-30); Carbon Dioxide* 28 mmol/L (20-32); Creatinine* 1.3 mg/dL (0.5-1.5); Estimated Glomerular Filt Rate 59 ml/min; Glucose* 102 mg/dL (60-115); Total Protein* 7.6 g/dL (6.0-8.3)
[2024-04-20 08:41] LABS: Calcium* 9.4 mg/dL (8.4-10.6)
[2024-04-20] MEDS: SODIUM CHLORIDE 0.9 % (FLUSH) 10 ML SYRINGE IVF (10:23)
[2024-04-20] MEDS: HEPARIN 500 UNIT/5 ML SYRINGE IVF (10:23)
[2024-04-21 08:32] VITALS: BP 119/71; PULSE 90; RESP 16; TEMP 36.9; O2SAT 94
[2024-04-21] MEDS: SODIUM CHLORIDE 0.9 % (FLUSH) 10 ML SYRINGE IVF (10:20)
[2024-04-21] MEDS: HEPARIN 500 UNIT/5 ML SYRINGE IVF (10:20)
--- NOTE | 2024-04-21 11:51 | ONC.NURNOTE ---
Pt here for Tecentriq. VSS. Pt mentions he has been having diarrhea for the last 1.5 weeks. Diarrhea has been between 3-7 episodes per day. Started taking imodium last . Stools have been inconsistent and come without warning at times. Discussed with Mara Parnell APRN and she met with pt to discuss plan of care. Tecentriq held for 1 week. Orders received to collect stool for cdiff, calprotectin, and GI pathogen panel. Pt sent home with supplies to collect stool specimen and will return it when able.
[2024-04-21 15:16] LABS: CDIFFEPI 027 PRESUMPTIVE NEGATIVE (Negative)
[2024-04-21 15:18] LABS: C.Difficile POSITIVE (Negative)
[2024-04-23 14:06] LABS: Calprotectin, Fecal 273 ug/g (<=49)
[2024-04-25 01:55] LABS: Adenovirus PCR Not Detected; Astrovirus PCR Not Detected; Campylobacter PCR Not Detected; Cryptosporidium PCR Not Detected; Cyclospora cayetanensis PCR Not Detected; Entamoeba histolytica PCR Not Detected; Enteroaggregative E coli PCR Not Detected; Enteropathogenic E coli PCR Not Detected; Enterotoxigenic E coli PCR Not Detected; Giardia lamblia PCR Not Detected; Norovirus Gi/GII PCR Not Detected; Plesiomonas shig PCR Not Detected; Rotavirus A PCR Not Detected; Salmonella PCR Not Detected; Sapovirus PCR Not Detected; Shiga toxin E coli PCR Not Detected; Shigella/Enteroinvasive E coli Not Detected; Vibrio PCR Not Detected; Vibrio cholerae PCR Not Detected; Yersinia enterocolitica PCR Not Detected
--- NOTE | 2024-04-27 13:23 | ONC.NURNOTE ---
Pt called today stating he feels better than last weeks and symptoms have improved.
[2024-05-04 13:46] LABS: Basophils Absolute Auto 0.04 K/uL (0.00-0.30); Basophils Percent Auto 0.4 % (0.0-3.0); Eosinophils Absolute Auto 0.03 K/uL (0.00-0.50); Eosinophils Percent Auto 0.3 % (0.0-7.0); Hematocrit 37.6 % (37.0-53.0); Hemoglobin* 12.1 gm/dL (13.5-17.5); Immature Granulocytes Abs Auto 0.02 K/uL (0.00-0.30); Immature Granulocytes Pct Auto 0.2 %; Lymphocytes Percent Auto 8.7 % (20-44); Mean Corpuscular HGB Conc 32 gm/dL (32-36); Mean Corpuscular Hemoglobin 32 pg (26-34); Mean Corpuscular Volume 101 fL (80-100); Monocytes Percent Auto 5.6 % (0.0-11.0); Neutrophils Percent Auto 84.8 % (42.0-72.0); Platelet Count* 147 K/uL (140-440); RDW Coefficient of Variation % 14.1 % (11.5-15.5); Red Blood Count 3.74 m/uL (4.30-5.90); White Blood Count* 8.89 K/uL (4.50-11.00)
[2024-05-04] MEDS: SODIUM CHLORIDE 0.9 % (FLUSH) 10 ML SYRINGE IVF (13:47)
[2024-05-04] MEDS: HEPARIN 500 UNIT/5 ML SYRINGE IVF (13:47)
[2024-05-04 14:05] LABS: Slide Review Reflex No
[2024-05-04 14:10] LABS: Albumin* 4.4 g/dL (3.3-5.0); Chloride* 101 mmol/L (96-114); Potassium* 4.2 mmol/L (3.6-5.1); Sodium* 136 mmol/L (135-149)
[2024-05-04 14:12] LABS: Creatinine* 1.3 mg/dL (0.5-1.5); Estimated Glomerular Filt Rate 59 ml/min
[2024-05-04 14:13] LABS: Alanine Aminotransferase* 21 U/L (4-50); Alkaline Phosphatase* 60 U/L (40-150); Anion Gap 15 mEq/L (7-15); Aspartate Amino Transferase* 32 U/L (12-35); Bilirubin Total* 0.7 mg/dL (0.1-1.5); Blood Urea Nitrogen* 20 mg/dL (7-30); Carbon Dioxide* 20 mmol/L (20-32); Glucose* 176 mg/dL (60-115); Total Protein* 6.8 g/dL (6.0-8.3)
[2024-05-04 14:14] LABS: Calcium* 9.2 mg/dL (8.4-10.6)
[2024-05-05 03:17] LABS: Thyroid Stimulating Hormone* 0.369 uIU/mL (0.270-4.20)
[2024-05-05] MEDS: SODIUM CHLORIDE 0.9 % (FLUSH) 10 ML SYRINGE IVF (09:21)
[2024-05-05] MEDS: HEPARIN 500 UNIT/5 ML SYRINGE IVF (09:21)
--- NOTE | 2024-05-07 15:11 | ONC.NURNOTE ---
Patient was approved through [employer] for the medication Fidaxomicin. The enrollment form was faxed to the pharmacy per request of [employer] [phone]. They will overnight this and will arrive via [facility] sometime tomorrow. Patient was notified and very thankful. All questions answered at this time.
[2024-05-15 07:57] VITALS: BP 100/68; PULSE 83; RESP 18; TEMP 36.7; O2SAT 97
[2024-05-15 08:03] VITALS: BP 113/80; PULSE 90
[2024-05-15 08:43] LABS: Basophils Absolute Auto 0.03 K/uL (0.00-0.30); Basophils Percent Auto 0.6 % (0.0-3.0); Eosinophils Absolute Auto 0.12 K/uL (0.00-0.50); Eosinophils Percent Auto 2.5 % (0.0-7.0); Hematocrit 37.5 % (37.0-53.0); Hemoglobin* 12.2 gm/dL (13.5-17.5); Immature Granulocytes Abs Auto 0.04 K/uL (0.00-0.30); Immature Granulocytes Pct Auto 0.8 %; Lymphocytes Percent Auto 19.3 % (20-44); Mean Corpuscular HGB Conc 33 gm/dL (32-36); Mean Corpuscular Hemoglobin 32 pg (26-34); Mean Corpuscular Volume 100 fL (80-100); Monocytes Percent Auto 11.9 % (0.0-11.0); Neutrophils Absolute Auto 3.06 K/uL (1.7-7.0); Neutrophils Percent Auto 64.9 % (42.0-72.0); Platelet Count* 149 K/uL (140-440); Red Blood Count 3.76 m/uL (4.30-5.90); White Blood Count* 4.72 K/uL (4.50-11.00)
[2024-05-15 08:44] LABS: Slide Review Reflex No
[2024-05-15 09:05] LABS: Albumin* 4.2 g/dL (3.3-5.0); Chloride* 104 mmol/L (96-114); Potassium* 4.1 mmol/L (3.6-5.1); Sodium* 138 mmol/L (135-149)
[2024-05-15 09:07] LABS: Creatinine* 1.3 mg/dL (0.5-1.5); Estimated Glomerular Filt Rate 59 ml/min
[2024-05-15 09:08] LABS: Alanine Aminotransferase* 19 U/L (4-50); Alkaline Phosphatase* 56 U/L (40-150); Anion Gap 11 mEq/L (7-15); Aspartate Amino Transferase* 30 U/L (12-35); Bilirubin Total* 0.5 mg/dL (0.1-1.5); Blood Urea Nitrogen* 16 mg/dL (7-30); Calcium* 9.3 mg/dL (8.4-10.6); Carbon Dioxide* 23 mmol/L (20-32); Glucose* 89 mg/dL (60-115); Total Protein* 6.7 g/dL (6.0-8.3)
[2024-05-15] MEDS: HEPARIN 500 UNIT/5 ML SYRINGE IVF (10:30)
[2024-05-15] MEDS: SODIUM CHLORIDE 0.9 % (FLUSH) 10 ML SYRINGE IVF (10:30)
[2024-05-18 14:13] LABS: Ova and Parasite, Fecal Negative (Negative)
--- NOTE | 2024-05-28 15:32 | URNOTE ---
Request received for authorization for Atezolizumab ([id number]). Prior authorization is not required as services are based on medical necessity and follow Medicare guidelines.
[2024-06-04 15:59] LABS: Basophils Absolute Auto 0.05 K/uL (0.00-0.30); Basophils Percent Auto 0.9 % (0.0-3.0); Eosinophils Absolute Auto 0.03 K/uL (0.00-0.50); Eosinophils Percent Auto 0.5 % (0.0-7.0); Hematocrit 37.4 % (37.0-53.0); Hemoglobin* 12.1 gm/dL (13.5-17.5); Immature Granulocytes Abs Auto 0.01 K/uL (0.00-0.30); Immature Granulocytes Pct Auto 0.2 %; Lymphocytes Percent Auto 16.7 % (20-44); Mean Corpuscular HGB Conc 32 gm/dL (32-36); Mean Corpuscular Hemoglobin 32 pg (26-34); Mean Corpuscular Volume 100 fL (80-100); Monocytes Percent Auto 12.7 % (0.0-11.0); Neutrophils Absolute Auto 3.85 K/uL (1.7-7.0); Platelet Count* 126 K/uL (140-440); RDW Coefficient of Variation % 14.2 % (11.5-15.5); Red Blood Count 3.74 m/uL (4.30-5.90); White Blood Count* 5.58 K/uL (4.50-11.00)
[2024-06-04 16:02] LABS: Slide Review Reflex No
[2024-06-04 16:20] LABS: Albumin* 4.3 g/dL (3.3-5.0); Chloride* 104 mmol/L (96-114); Potassium* 4.4 mmol/L (3.6-5.1); Sodium* 135 mmol/L (135-149)
[2024-06-04 16:22] LABS: Bilirubin Total* 0.7 mg/dL (0.1-1.5); Creatinine* 1.4 mg/dL (0.5-1.5); Estimated Glomerular Filt Rate 54 ml/min
[2024-06-04 16:23] LABS: Alanine Aminotransferase* 24 U/L (4-50); Alkaline Phosphatase* 60 U/L (40-150); Anion Gap 7 mEq/L (7-15); Aspartate Amino Transferase* 32 U/L (12-35); Blood Urea Nitrogen* 24 mg/dL (7-30); Calcium* 9.2 mg/dL (8.4-10.6); Carbon Dioxide* 24 mmol/L (20-32); Glucose* 95 mg/dL (60-115); Total Protein* 6.5 g/dL (6.0-8.3)
[2024-06-04] MEDS: SODIUM CHLORIDE 0.9 % (FLUSH) 10 ML SYRINGE IVF (17:20)
[2024-06-04] MEDS: HEPARIN 500 UNIT/5 ML SYRINGE IVF (17:20)
[2024-06-04 17:26] LABS: Thyroid Stimulating Hormone* 0.712 uIU/mL (0.270-4.20)
--- NOTE | 2024-06-04 17:28 | PC.NURSE ---
pt port was SF flushed and then heparin was given and port was de accessed in the pet scan truck
== END 2024-06-07 23:59 | disposition home or self-care (01) ==
LOC: CCIC 15:45
PROVIDERS: Internal Medicine Hematology & Oncology; PCP Family Medicine; Referring Provider Family Medicine; Visit Provider Clinical Nurse Specialist
DX: C34.11 Malignant neoplasm of upper lobe, right bronchus or lung (principal); R94.6 Abnormal results of thyroid function studies
CPT/HCPCS: 36415; 36591; 70553; 78815; 80053; 80061; 82607; 83735; 83993; 84443; 85025; 87177; 87209; 87493; 87505; 96413; 99211; 99214; 99215; 99443; G0103; G0463; A9552; A9575; J1642; J7050; J9022

== ENCOUNTER 2024-09-03 10:03 | Outpatient (CLI) | payer MEDICARE, BC, SELFPAY ==
--- OUTSIDE RECORDS SUMMARY | 2024-09-03 10:10 | XMS_ITS ---
Author Organization [facility] Address [address] [place] [address] Care Team Providers Care Icd 9 Coder Name Role Phone Unavailable Unavailable Unavailable Surgery Details Not on file Complications Check Surgery Details section. Procedure Estimated Blood Loss Check Surgery Details section. Procedure Findings Check Surgery Details section. Procedure Specimens Taken Check Surgery Details section.
--- OUTSIDE RECORDS SUMMARY | 2024-09-03 10:10 | XMS_ITS | Encounter Summary ---
Author Organization [facility] Address [address] [place] [address] Care Team Providers Care Software Systems Engineer Name Role Phone Elsewhere, Pcp Primary Care Provider Unavailabl e Encounter Details Date Type Department Care Team (Latest Contact Info) Description 07/10/2024 2:30 PM CDT Ancillary Procedure Department of Gastroenterology Social History Tobacco Use Types Packs/Day Years Used Date Smoking Tobacco: Former Cigarettes Q uit: 2016 Smokeless Tobacco: Never Alcohol Use Standard Drinks/Week Comments Yes 21 (1 standard drink = 0.6 oz pu re alcohol) [facility] Utilities Answer Date Recorded In the past 12 months has th e electric, gas, oil, or water company threatened to shut off services in your home? No 07/06/2024 Exercise Vital Sign Answer Date Recorde d On average, how many days pe r week do you engage in moderate to strenuous exercise (like a brisk walk)? 5 days 07/06/2024 On average, how many minutes do you engage in exercise at this level? 40 min 07/06/2024 Hunger Vital Sign Answer Date Recorded Within the past 12 months, y ou worried that your food would run out before you got the money to buy more. Never true 07/06/20 24 Within the past 12 months, t he food you bought just didn't last and you didn't have money to get more. Never true 07/06/2024 PRAPARE - Transportation Answer Date Re corded In the past 12 months, has l ack of transportation kept you from medical appointments or from getting medications? No 06/18 In the past 12 months, has l ack of transportation kept you from meetings, work, or from getting things needed for daily living? No 07/06/2024 Nutrition Answer Date Recorded On average, how many serving s of fruits and vegetables do you eat per day (serving size is equal to 1 cup or approximately the size of a tennis ball)? 3-5 07/06/2024 Dental Answer Date Recorded Dental: Regular Dentist Yes 07/06/20 Employment Answer Date Recorded Employment status Retired 07/06/2024 Sex and Gender Information Value Date Recorded Sex Assigned at Male 07/11/2024 2:15 PM CDT Legal Sex Male 9:12 AM [employer] Gender Identity Male 07/11/2024 2:15 PM CDT Sexual Orientation Straight 07/11/2024 2: 15 PM CDT documented as of this encounter Plan of Treatment Not on file documented as of this encounter Procedures Procedure Name Priority Date/Time Associated Diagnosis Comments GASTROENTEROLOGY IMAGE EXAM Routine 07/10/2024 2:30 PM CDT documented in this encounter Results * Colonoscopy-Gastroenterology Image Exam (07/10/2024 2:30 PM CDT) 07/10/2024 2:30 PM CDT Narrative [facility] - 07/10/2024 3:12 PM CDT This order has been created and auto-finalized to support the import of images acquired without order. The clinical documentation to support these images can be found on the encounter that produced images. us Provider Not In System IMG NON RAD IMAGING PROCE DURES Final Result [facility] NA documented in this encounter Visit Diagnoses Not on filedocumented in this encounter Care Teams Software Systems Engineer Relationship Specialty Start Date End Date Elsewhere, Pcp PCP - General 12/07/19 documented as of this encounter
--- OUTSIDE RECORDS SUMMARY | 2024-09-03 10:10 | XMS_ITS | Clinical Summary ---
Author Organization [facility] Address [address] [place] [address] Care Team Providers Care Cooker Operator Name Role Phone Elsewhere, Pcp Primary Care Provider Unavailabl e Source Comments Patient records contain information from all sites at [facility]. For routine questions regarding patient records, call [phone] during business hours, M-F 8:00 AM - 5:00 PM Central Time. Record requests for emergency care only can be directed to [phone] at any time.[facility] Allergies No known active allergies Medications aspirin 81 mg chewable tablet Chew 1 tablet. 2 days a week 6 Active bismuth subsalicylate (PEPTO BISMOL) 262 mg tablet Take 2 tablets by mouth. 2 Active cholecalciferol (VITAMIN D3) 10 mcg (400 Unit) tablet daily. 1 Active folic acid 1 mg tablet Take 1 tablet by mouth daily. 5 Active metoprolol succinate (TOPROL-XL) 25 mg 24 hr tablet 6 Active multivitamin tablet Take 1 tablet by mouth daily. 6 Active nitroglycerin (NITROSTAT) 0.[address] 1 tablet under the tongue as needed. 6 Active omeprazole (PriLOSEC) [address] capsule Take 20 mg by mouth. Active thiamine (VITAMIN B1) 100 mg tablet Take 1 tablet by mouth daily. 6 Active atorvastatin (LIPITOR) 40 mg tablet Take 40 mg by mouth. 2 Active Dulera 50-5 mcg/actuation HFA aerosol inhaler as needed. 3 Active omega 4-spx-ozq-fish oil (fish oil) 1,000 mg (120 mg-180 mg) capsule Take 1 capsule by mouth daily. 6 Active diclofenac sodium (Voltaren) 75 mg EC tablet Take 1 tablet by mouth 2 (two) times a day. 2 Active lisinopriL 2.5 mg tablet Take 2.5 mg by mouth daily. 6 Active budesonide (Entocort EC) 3 mg 24 hr capsule Take 6 mg by mouth 3 (three) times a day. Active polycarbophil (FiberCon) 625 mg tablet Take 625 mg by mouth daily. Active UNABLE TO FIND floragen Activ e UNABLE TO FIND Take 500 each by mouth 2 (two) times a day. Equate pain reliever Active UNABLE TO FIND Take 650 each by mouth 2 (two) times a day. Equate arthritis Active tamsulosin (Flomax) 0.4 mg 24 hr capsule Take 0.4 mg by mouth. 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 Karen Breaux, R.N. 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 Rx Denial ([id number] F-NA ASC-C 100GM- ) 07/07/2024 2:44 PM CDT - 07/07/2024 11:59 PM CDT Hospital Encounter Department of Laboratory Medicine and Pathology, [facility] in [place], [place] [address] [place] [phone] Sergei Martinez M.B.B.S., M.S. 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 Karen Breaux, R.N. 07/07/2024 1:10 PM CDT Comprehensive Visit Division of Gastroenterology in [place], [place] [address] [place] [phone] Sergei Martinez M.B.B.S., M.S. 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 06/24/2024 Orders Only Department of Oncology in [address] [phone] Leila Arteaga MPAS PElzbieta.Kamini., P.A. 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 Gender Identity Male 07/11/2024 2:15 PM CDT Sexual Orientation Straight 07/11/2024 2: 15 PM CDT Last Filed Vital Signs Vital Sign Reading Time Taken Comments Blood Pressure 171/91 07/10/2024 3:33 PM CDT Pulse 94 07/10/2024 3:33 PM CDT Temperature 36.6 ??C (97.9 ??F) 07/10/2024 3:14 PM CD T Respiratory Rate 20 07/10/2024 3:33 PM CDT Oxygen Saturation 98% 07/10/2024 3:33 PM CDT Inhaled Oxygen Concentration - - Weight 64.4 kg (141 lb 15.6 oz) 07/10/2024 1:33 PM CDT Height 162.6 cm (5' 4.02) 07/10/2024 1:33 PM CD T Body Mass Index 24.36 07/10/2024 1:33 PM CDT Plan of Treatment Health Maintenance Due Date Last Done Comments CT Colonography 1955 Cologuard 1955 FIT 1955 Pneumococcal vaccine (65+ years) (2 of 2 - PCV) 05/08/2014 05/08/2013 Potassium Level 08/06/2017 08/06/2016, 07/19, 08/04/2016, Additional history exists Sodium Level 08/06/2017 08/06/2016, 07/19, 08/04/2016, Additional history exists Fasting Glucose for Diabetes Screening 08/06/2019 08/06/2016, 08/05/2016, 08/04/2016, Additional history exists Depression Screening (Annual PHQ-2) 11/18/2023 Creatinine Level (Kidney Function Test) 03/25/2024 03/25/2023, 08/06/2016, 08/05/2016, Additional history exists COVID-19 Vaccine ( season) 2024 09/07/2023, 09/13/2022, 12/05/2021, Additional history exists Influenza Vaccine (#1) 2024 3, 08/29/2022, 08/29/2022, Additional history exists Office Visit for Blood Pressure Check / Re-check 10/07/2024 07/07/2024 DTaP,Tdap,and Td Vaccines (3 - Td or Tdap) 08/16/2031 08/16/2021, 02/27/2012, 12/25/2005 Colonoscopy 07/10/2034 07/10/2024, 07/10/2024 Colorectal Cancer Screening 07/10/2034 Abdominal Aortic Aneurysm (AAA) Screen Completed 08/04/2016, 08/03/2016 Zoster Vaccines Completed 12/10/2018, 09/18, 09/21/2014 Hepatitis C Screening Completed 07/07/2024, 016 Fall Risk Screen (Annual) Completed 07/10/2024 HPV Vaccines Aged Out No longer eligi ble based on patient's age to complete this topic Procedures Procedure Name Priority Date/Time Associated Diagnosis Comments SURGICAL PATHOLOGY Routine 07/10/2024 2: 57 PM CDT COLONOSCOPY Routine 07/10/2024 2:30 PM CDT 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 Colitis Collagenous COLONOSCOPY RESTRICTED Routine 2:30 PM CDT 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 Colitis Collagenous GASTROENTEROLOGY IMAGE EXAM Routine 07/10/2024 2:30 PM CDT SYPHILIS IGG W/ REFLEX, EIA, S Routine 07/07/2024 2:56 PM CDT 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 Colitis Collagenous HIV-1/-2 AG AND AB SCREEN, PLASMA Routine 07/07/2024 2:56 PM CDT 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 Colitis Collagenous HEPATITIS BE AG AND AB Routine 2:56 PM CDT 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 Colitis Collagenous HEPATITIS B SURFACE ANTIGEN Routine 07/07/2024 2:56 PM CDT 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 Colitis Collagenous HBC TOTAL AB, SERUM Routine 07/07/2024 2 :56 PM CDT 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 Colitis Collagenous HEPATITIS A IGM AB Routine 07/07/2024 2: 56 PM CDT 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 I verify that I have examined all relevant slides/materi als for the specimen(s) and rendered or confirmed the diagnosis. 07/13/2024 12:11 PM CDT DTL Gross Description Received in formalin labeled with the patient's name, medical record number, and colon-colon, random sites(colon) are seven pale elizondo-pink irregular soft tissues, ranging from 0.1-0.3 cm in greatest dimension. Specimens are submitted en toto in cassette A1. Grossed byMBB. 07/13/2024 12:11 PM CDT DTL Interpretation FINAL DIAGNOSIS A. Colon, Random Sites (Colon), endoscopic biopsy: Colonic mucosa without diagnostic abnormalities . ??No features of microscopic colitis. Digital imaging was used in the diagnostic assessment of this case. 07/13/2024 12:11 PM CDT DTL Biopsy (Colon) 07/10/2024 2: 57 PM CDT us Maria R Cota LAB SURG PATH O RDERABLES Final Result [facility] [address] [place] [address], [facility] DTL [address] [place] [address] * Colonoscopy (07/10/2024 2:30 PM CDT) 07/10/2024 2:30 PM CDT [facility]ressions [facility] - 07/10/2024 3:07 PM CDT Post-op Diagnoses: ? - Patent [id number] ileo-colonic anastomosis, characterized by healthy ? appearing mucosa. ? - The examined portion of the ileum was normal. ? - The entire examined colon is normal. Biopsied. ? - Fecal Microbiota Transplant (Bacteriotherapy) performed in the ? proximal ascending colon. Narrative [facility] - 07/10/2024 3:07 PM CDT Gonda 9 GI GI Patient Name: Cr Castrejon Date of : 1955 Age: 69 Procedure Date: 07/10/2024 Procedure: ? Colonoscopy Providers: ? 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 - Await pathology results. Findings: ? There was evidence of a prior [id number] ileo-colonic anastomosis in ? the ascending colon. This was patent and was characterized by healthy ? appearing mucosa. The anastomosis was traversed. ? The dinah-terminal ileum appeared normal. ? The colon (entire examined portion) appeared normal - v limited exam ? given lack of distention for FMT. Biopsies were taken with a cold ? forceps for histology. ? The decision was made to proceed with fecal microbiota transplant ? (bacteriotherapy). Donor stool was supplied as per protocol. ? Approximately 250 mL of the donor stool was instilled in the proximal ? ascending colon. A detailed colonoscopic exam could not be performed ? upon scope withdrawal secondary to limited visibility from the instilled ? stool. Procedural Details: ? The patient was seen, evaluated, history reviewed, airway and heart-lung ? exams were performed by licensed provider and were satisfactory for ? planned level of sedation care. ? The risks, benefits and alternatives for the procedure and sedation were ? discussed and informed consent was obtained. A procedural pause was ? conducted in the presence of assisting personnel to verify the correct ? patient identity and procedure to be performed. Throughout the ? procedure, the patient's blood pressure, pulse, and oxygen saturations ? were monitored continuously. The Pediatric Colonoscope was introduced ? under direct vision through the anus and advanced to 15 cm into the ? ileum. The colonoscopy was performed without difficulty. The quality of ? the bowel preparation was evaluated using the BBPS ([place] Bowel ? Preparation Scale) with scores of: Right Colon = 1 (portion of mucosa ? seen, but other areas not well seen due to staining, residual stool ? and/or opaque liquid), Transverse Colon = 1 (portion of mucosa seen, but ? other areas not well seen due to staining, residual stool and/or opaque ? liquid) and Left Colon = 1 (portion of mucosa seen, but other areas not ? well seen due to staining, residual stool and/or opaque liquid). The ? total BBPS score equals 3. The quality of the bowel preparation was ? inadequate. Estimated Blood Loss: ?Estimated blood loss was minimal. Complications: ? No immediate complications. Sedation: ? Moderate (conscious) sedation was administered by the nurse and ? supervised by the endoscopist. The patient's oxygen saturation, heart ? rate, blood pressure and response to care were monitored. Total ? physician intraservice time was 11 minutes. Attending Participation: I personally performed the entire procedure. Maria R Villavicencio MD 07/10/2024 3:07:14 PM This report has been signed electronically. Number of Addenda: 0 Sergei Cota, M.S. GI PROCEDURE ORDERAB LES Final Result [facility] NA * Colonoscopy-Gastroenterology Image Exam (07/10/2024 2:30 PM CDT) 07/10/2024 2:30 PM CDT Narrative [facility] - 07/10/2024 3:12 PM CDT This order has been created and auto-finalized to support the import of images acquired without order. The clinical documentation to support these images can be found on the encounter that produced images. Provider Not In System IMG NON RAD IMAGING PROCE DURES Final Result Performing Organization Address [facility] Co de Phone Number [facility] NA * Syphilis IgG w/ Reflex, EIA, Serum (07/07/2024 2:56 PM CDT) Syphilis IgG w/ Reflex, EIA, S Nonreactive Nonreactive 07/08/2024 8:59 PM CDT [facility] Comment: No serologic evidence of infection with T. pallidum (syphilis). ??Repeat testing may be considered in patients with suspected acute or primary syphilis in 2-4 weeks. For additional information on interpretation of the syphilis reverse algorithm and results, see: [email or web address] Blood (Blood, Venous) 07/07/2024 2:56 PM CDT 07/07/2024 6:52 PM CDT Sergei Cota, M.S. LAB MICROBIOLOGY - B LOOD ORDERABLES Final Result [facility] [address] [place] [address] [facility] [address] [place] [address] * HIV-1/-2 Ag and Ab Screen, Plasma (07/07/2024 2:56 PM CDT) Pathologist [facility] HIV-1/-2 Ag and Ab Screen, P Negative Negative 07/07/2024 9:03 PM CDT [facility] Comment: Negative result does not rule out HIV infection. If exposure to HIV infection occurred <14 days ago, contact the laboratory to request addition of HIV-1/HIV-2 RNA detection, Plasma (HIP12). Blood (Blood, Venous) 07/07/2024 2:56 PM CDT 07/07/2024 7:46 PM CDT Sergei KimballS., M.S. LAB MICROBIOLOGY - B LOOD ORDERABLES Final Result Performing Organization Address City/[facility]/ZIP Co de Phone Number [facility] [address] [place] [address] [facility] [address] [place] [address] * Hepatitis Be Ag and Ab (07/07/2024 2:56 PM CDT) [facility] Hepatitis Be Ag, S Negative Negative 07/07/2024 9:17 PM CDT [facility] Comment: Consumption of high-dose biotin supplement within 12 hours of blood collection for this test can cause false-negative results. HBe Antibody, S Negative Negative 9:17 PM CDT [facility] Blood (Blood, Venous) 07/07/2024 2:56 PM CDT 07/07/2024 7:46 PM CDT Sergei SorianoBFeliciaS., M.S. LAB MICROBIOLOGY - B LOOD ORDERABLES Final Result [facility] [address] [place] [address] [facility] [address] [place] [address] * HCV Ab Scrn w/Reflex to HCV PCR, Serum (07/07/2024 2:56 PM CDT) Pathologist [facility] HCV Ab Screen, S Negative Negative 07/07/2024 9:11 PM CDT [facility] Comment: Consumption of high-dose biotin supplement within 12 hours of blood collection for this test can cause false-negative results. Blood (Blood, Venous) 07/07/2024 2:56 PM CDT 07/07/2024 7:46 PM CDT Sergei Cota, M.S. LAB MICROBIOLOGY - B LOOD ORDERABLES Final Result Performing Organization Address [facility] de Phone Number [place] [phone] [place] [address] [place] [address] [place] [address] * Hepatitis A IgM Ab, Serum (07/07/2024 2:56 PM CDT) [facility] Hepatitis A IgM Ab, S Negative Negative 07/07/2024 9:17 PM CDT [facility] Comment: This result does not exclude the possibility of recent exposure to hepatitis A virus. ??Antibody level during early infection stage may be below the limit of detection of the assay. Consumption of high-dose biotin supplement within 12 hours of blood collection for this test can cause false-negative results. Blood (Blood, Venous) 07/07/2024 2:56 PM CDT 07/07/2024 7:46 PM CDT Sergei Cota, M.S. LAB MICROBIOLOGY - B LOOD ORDERABLES Final Result Performing Organization Address [facility]/ZIP Co de Phone Number [facility] [address] [place] [address] [facility] [address] [place] [address] * HBc Total Ab, Serum (07/07/2024 2:56 PM CDT) HBc Total Ab, S Negative Negative 07/07/2024 9:17 PM CDT [facility] Blood (Blood, Venous) 07/07/2024 2:56 PM CDT 07/07/2024 7:46 PM CDT Sergei Cota, M.S. LAB MICROBIOLOGY - B LOOD ORDERABLES Final Result [facility] [address] [place] [address] [facility] [address] [place] [address] * Hepatitis B Surface Antigen (07/07/2024 2:56 PM CDT) Pathologist [facility] HBs Antigen, S Negative Negative 07/07/2024 9:17 PM CDT [facility] Blood (Blood, Venous) 07/07/2024 2:56 PM CDT 07/07/2024 7:46 PM CDT Sergei Cota, M.S. LAB MICROBIOLOGY - B LOOD ORDERABLES Final Result Performing Organization Address City/[facility] Co de Phone Number [facility] [address] [place] [address] [facility] [address] [place] [address] * PET skull to mid thigh-Outside NM Pet (06/04/2024 5:50 PM CDT) 06/04/2024 5:50 PM CDT Narrative [facility] - 06/04/2024 7:08 PM CDT This order has been created and auto-finalized to support the import of outside images. If available, original interpretation can be found on the Media Tab in Chart Review, in Document Viewer, as an image in QREADS or as an Addendum. If a re-interpretation or overread is required please follow defined workflow.?? us Provider Not In System IMG NM PROCEDURES Final R esult [facility] NA * (ABNORMAL) Electrolyte (Chem 4) Panel (08/06/2016 4:23 AM CDT) Sodium, S 140 135 - 145 MMOL/L [facility] Potassium, S 4.1 3.6 - 5.2 MMOL/L [facility] eGFR-Black/Afri can Scottish >60 >60 ML/MIN/BSA [facility] BUN (Blood Urea Nitrogen), S 18 8 - 24 MG/DL [facility] Chloride, S 99 98 - 107 MMOL/L [facility] HX Bicarbonate, P/S 27 22 - 29 MMOL/L [facility] Creatinine 1.3 0.8 - 1.3 MG/DL [facility] eGFR Non-Black/Afric an Scottish 56(L) >60 ML/MIN/BSA [facility] Anion Gap 14 7 - 15 [facility] Glucose, S 95 70 - 140 MG/DL [facility] 08/06/2016 4:23 AM CDT 08/06/2016 4:23 AM CDT Urbano Ibarra M.D., Ph.D. LAB BLOOD ADD-ON Final R esult Performing Organization Address [facility]/ZIP Co de Phone Number [facility] [address] * US Abdomen and Abdomen Doppler [...] US Abd Cmpl with Doppler Lmtd Indications: [id number] ABDOMEN WITH DOPPLER/liver disease alcoholic/pt w/encephalopathy and heavy alcohol use w/2 cm liver nodule and elevated liver studies. ORIGINAL REPORT - 04-Aug-2016 08:18:00 EXAM: ??US Abdomen Complete with limited color and spectral Doppler analysis COMPARISON: ??CT 08/03/2016 Procedure Note Felipe Brand M.D. - 02/13/2018 04-Aug-2016 08:08:00 Exam: US Abd Cmpl with Doppler Lmtd Indications: [id number] ABDOMEN WITH DOPPLER/liver diseasealcoholic/pt w/encephalopathy and heavy [...] M.D. [phone] 04-Aug-2016 08:18 Jacqueline Tineo M.D. [facility] US PROCEDURES Final Re sult from Last 3 Months or Most Recently Relevant to Health Maintenance Insurance MEDICARE [facility] Care Teams Cooker Operator Relationship Specialty Start Date End Date Elsewhere, Pcp PCP - General 12/07/19
--- OUTSIDE RECORDS SUMMARY | 2024-09-03 10:10 | XMS_ITS | Encounter Summary ---
Author Organization [facility] Address [address] [place] [address] Care Team Providers Care Servicer Name Role Phone Elsewhere, Pcp Primary Care Provider Unavailabl e Reason for Referral * Outpatient (Routine) - Closed Specialty Diagnoses / Procedures Referred By Ynesac t Referred To Contact Diagnoses 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 Colitis Collagenous Procedures Colonoscopy restricted Sergei Martinez M.B.B.S., M.S. [address] [place] [phone] Phone: tel: fax: [facility] Referral ID Status Reason Start Date Expiration Date Visits Re quested Visits Authorized [id number] Closed 07/07/2024 07/07/2025 1 1 Reason for Visit * Outpatient (Routine) - Closed Specialty Diagnoses / Procedures Referred By Contac t Referred To Contact Diagnoses 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 Colitis Collagenous Procedures Colonoscopy restricted Segrei Martinez M.B.B.S., M.S. [address] [place] [phone] Phone: tel: fax: [facility] Referral ID Status Reason Start Date Expiration Date Visits Re quested Visits Authorized [id number] Closed 07/07/2024 07/07/2025 1 1 Encounter Details Date Type Department Care Team (Latest Contact Info) Description 07/10/2024 1:11 PM CDT - 07/10/2024 11:59 PM CDT Hospital Encounter Division of Gastroenterology in [place], [place] [address] [place] [address] Sergei Martinez M.B.B.S., M.S. [address] [place] [address] 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; Colitis Collagenous Discharge Disposition: Home or Self Care Social History Tobacco Use Types Packs/Day Years Used Date Smoking Tobacco: Former Cigarettes Q uit: 2016 Smokeless Tobacco: Never Tobacco Cessation:Counseling Given: Not Answered Alcohol Use Standard Drinks/Week Comments Yes 21 (1 standard drink = 0.6 oz pu re alcohol) [facility] [employer] Answer Date Recorded In the past 12 months has th e [employer], gas, oil, or water [employer] threatened to shut off services in your [...] Date Recorded Dental: Regular Dentist Yes 07/06/20 24 Employment Answer Date Recorded Employment status Retired 07/06/2024 Sex and Gender Information Value Date Recorded Sex Assigned at Male 07/11/2024 2:15 PM CDT Legal Sex Male 9:12 AM [employer] Gender Identity Male 07/11/2024 2:15 PM CDT Sexual Orientation Straight 07/11/2024 2: 15 PM CDT documented as of this encounter Last Filed [...] Mass Index 24.36 07/10/2024 1:33 PM CDT documented in this encounter Medications at Time of Discharge aspirin 81 mg chewable tablet Chew 1 tablet. 2 days a week 08/02/2016 atorvastatin (LIPITOR) 40 mg tablet Take 40 mg by mouth. 07/25/2012 bismuth subsalicylate (PEPTO BISMOL) 262 mg tablet Take 2 tablets by mouth. 08/10/2022 budesonide (Entocort EC) 3 mg 24 hr capsule Take 6 mg by mouth 3 (three) times a day. cholecalciferol (VITAMIN D3) 10 mcg (400 Unit) tablet daily. 08/16/2021 diclofenac sodium (Voltaren) 75 mg EC tablet Take 1 tablet by mouth 2 (two) times a day. 07/25/2012 Dulera 50-5 mcg/actuation HFA aerosol inhaler as needed. 06/25/2023 folic acid 1 mg tablet Take 1 tablet by mouth daily. 05/17/2015 lisinopriL 2.5 mg tablet Take 2.5 mg by mouth daily. 08/07/2016 metoprolol succinate (TOPROL-XL) 25 mg 24 hr tablet 08/07/2016 multivitamin tablet Take 1 tablet by mouth daily. 08/02/2016 nitroglycerin (NITROSTAT) 0.[address] 1 tablet under the tongue as needed. 08/02/2016 omega 6-aux-xqf-fish oil (fish oil) 1,000 mg (120 mg-180 mg) capsule Take 1 capsule by mouth daily. 08/02/2016 omeprazole (PriLOSEC) [address] capsule Take 20 mg by mouth. polycarbophil (FiberCon) 625 mg tablet Take 625 mg by mouth daily. tamsulosin (Flomax) 0.4 mg 24 hr capsule Take 0.4 mg by mouth. 02/18/2024 thiamine (VITAMIN B1) 100 mg tablet Take 1 tablet by mouth daily. 08/07/2016 UNABLE TO FIND floragen UNABLE TO FIND Take 500 each by mouth 2 (two) times a day. Equate pain reliever UNABLE TO FIND Take 650 each by mouth 2 (two) times a day. Equate arthritis documented as of this encounter Plan of Treatment Not on file documented as of this encounter Procedures Procedure Name Priority Date/Time Associated Diagnosis Comments SURGICAL PATHOLOGY Routine 07/10/2024 2: 57 PM CDT COLONOSCOPY RESTRICTED Routine 07/10/2024 2:30 PM CDT 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 Colitis Collagenous COLONOSCOPY Routine 07/10/2024 2:30 PM CDT 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 Colitis Collagenous documented in this encounter Results * Surgical Pathology (07/10/2024 2:57 PM [...] submitted en toto in cassette A1. [facility] 07/13/2024 12:11 PM CDT DTL Interpretation FINAL DIAGNOSIS A. Colon, Random Sites (Colon), endoscopic biopsy: Colonic mucosa without diagnostic abnormalities . ??No features of microscopic colitis. Digital imaging was used in the diagnostic assessment of this case. 07/13/2024 12:11 PM CDT DTL Biopsy (Colon) 07/10/2024 2: 57 PM CDT us Maria R Cota LAB SURG PATH O RDERABLES Final Result [facility] [address] [place] [address], [facility] DTL [address] [place] [address] * Colonoscopy (07/10/2024 2:30 PM CDT) 07/10/2024 2:30 PM CDT Impressions [facility] - 07/10/2024 3:07 PM CDT Post-op Diagnoses: ? - Patent oiwf-zj-ntzo ileo-colonic anastomosis, characterized by healthy ? appearing mucosa. ? - The examined portion of the ileum was normal. ? - The entire examined colon is normal. Biopsied. ? - Fecal Microbiota Transplant (Bacteriotherapy) performed in the ? proximal ascending colon. Narrative [facility] - 07/10/2024 3:07 PM CDT Gonda 9 GI GI Patient Name: Cr Castrejon Date of : 1955 Age: 69 Procedure Date: 07/10/2024 Procedure: ? Colonoscopy Providers: ? 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 - Await pathology results. Findings: ? There was evidence of a prior uhxa-bm-qhzu ileo-colonic anastomosis in ? the ascending colon. [...] bowel preparation was evaluated using the BBPS (Show Low Bowel ? Preparation Scale) with scores of: [...] signed electronically. Number of Addenda: 0 Sergei Cota M.S. GI PROCEDURE ORDERAB LES Final Result Performing Organization Address City/State/[facility] Number [facility] documented in this encounter Visit Diagnoses Diagnosis 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 Colitis Collagenous documented in this encounter Administered Medications Inactive Administered Medications - up to 3 most recent administrations Medication Order MAR Action Action Date Dose Rate Site fentaNYL injection (Sublimaze) intravenous, As needed, Starting on Sat07/10/24 at 1453, Intra-Op Given 07/10/2024 2:53 PM CDT 50 mcg fentaNYL injection (Sublimaze) intravenous, As needed, Starting on Sat07/10/24 at 1456, Intra-Op Given 07/10/2024 2:56 PM CDT 25 mcg heparin flush 500-1,000 Units 500-1,000 Units, intra-catheter, During hospitalization, line care, Prior to discharge, Starting on Sat07/10/24 at 1520, For 1 dose, Implanted Vascular Access Device (IVAD) Venous Non-Valved: flush 5 mL (500 units) per port/lumen following saline flush prior to discharge. Given 07/10/2024 3:26 PM CDT 500 Units Lactated Ringer's Continuous Infusion: Per Instructions PRN, Starting on Sat07/10/24 at 1455, Intra-Op New Bag 07/10/2024 2:55 PM CDT 100 mL/hr 100 mL/hr midazolam (PF) injection (Versed) As needed, Starting on Sat07/10/24 at 1453, Intra-Op Given 07/10/2024 2:53 PM CDT 2 mg midazolam (PF) injection (Versed) As needed, Starting on Sat07/10/24 at 1456, Intra-Op Given 07/10/2024 2:56 PM CDT 2 mg sodium chloride 0.9 % injection 10-20 mL 10-20 mL, intravenous, During hospitalization, line care, Prior to discharge, Starting on Sat07/10/24 at 1520, For 1 dose, Implanted Vascular Access Device (IVAD) Venous Non-Valved: Flush 10 mL per port/lumen followed by heparin flush prior to discharge. Given 07/10/2024 3:26 PM CDT 10 mL sodium chloride 0.9 % injection As needed, Starting on Sat07/10/24 at 1453, Intra-Op Given 07/10/2024 2:53 PM CDT 5 mL sodium chloride 0.9 % injection As needed, Starting on Sat07/10/24 at 1456, Intra-Op Given 07/10/2024 2:56 PM CDT 5 mL documented in this encounter Care Teams Servicer Relationship Specialty Start Date End Date Elsewhere, Pcp PCP - General 12/07/19 documented as of this encounter
--- OUTSIDE RECORDS SUMMARY | 2024-09-03 10:10 | XMS_ITS | Referral Summary ---
Author Organization [facility] Address [address] [place] [address] Care Team Providers Care Nutter Up Name Role Phone Elsewhere, Pcp Primary Care Provider Unavailabl e Source Comments Patient records contain information from all sites at [facility]. For routine questions regarding patient records, call [phone] during business hours, M-F 8:00 AM - 5:00 PM Central Time. Record requests for emergency care only can be directed to [phone] at any time.[facility] Encounters Date Type Department Care Team Description 07/17/2024 1:20 PM CDT Virtual Visit Division of Gastroenterology in [place], [place] [address] [place] [phone] Sergei Martinez M.B.B.S., M.S. Karen Breaux, R.N. 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; Colitis Collagenous 07/10/2024 2:30 PM CDT Ancillary Procedure Department of Gastroenterology 07/10/2024 1:11 PM CDT - 07/10/2024 11:59 PM CDT Hospital Encounter Division of Gastroenterology in [place], [place] [address] [place] [phone] Sergei Martinez M.B.B.S., M.S. 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; Colitis Collagenous Discharge Disposition: Home or Self Care 07/09/2024 Orders Only Pharmacy Prior Auth RO [phone] Denise Castañeda 07/08/2024 Clinical Communication Division of Gastroenterology in [place], [place] [address] [place] [address] Sergei Martinez M.B.B.S., M.S. Rx Denial ([id number] F-NA ASC-C 100GM- ) 07/07/2024 2:44 PM CDT - 07/07/2024 11:59 PM CDT Hospital Encounter Department of Laboratory Medicine and Pathology, [facility], in [place], [place] [address] [place] [phone] Sergei Martinez M.B.B.SFelicia, M.S. 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; Colitis Collagenous Discharge Disposition: Home or Self Care 07/07/2024 2:00 PM CDT Nurse Only Division of Gastroenterology in [place], [place] [address] [place] [phone] Sergei Martinez M.B.B.S., M.S. Karen Breaux, R.N. 07/07/2024 1:10 PM CDT Comprehensive Visit Division of Gastroenterology in [place], [place] [address] [place] [phone] Sergei Martinez M.B.B.S., M.S. 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 06/24/2024 Orders Only Department of Oncology in [address] [phone] Leila Arteaga MPAS, P.A.-C., P.A. 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 from Last 3 Months Allergies No known active allergies Medications aspirin [...] aerosol inhaler as needed. 3 Active omega 6-vqf-vgl-fish oil (fish oil) 1,000 mg (120 mg-180 [...] drink = 0.6 oz pu re alcohol) [facility] [employer] Answer Date Recorded In the past 12 months has th e [employer], gas, oil, or water [employer] threatened to shut off services in your [...] money to buy more. 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 - Patent gpxz-yq-giqm ileo-colonic anastomosis, characterized by healthy ? appearing mucosa. ? - The examined portion of the ileum was normal. ? - The entire examined colon is normal. Biopsied. ? - Fecal Microbiota Transplant (Bacteriotherapy) performed in the ? proximal ascending colon. Narrative [facility] - 07/10/2024 3:07 PM CDT Gonda 9 GI GI Patient Name: Cr Castrejon Date of : 1955 Age: 69 Procedure Date: 07/10/2024 Procedure: ? Colonoscopy Providers: ? 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 - Await pathology results. Findings: ? There was evidence of a prior ncto-cm-zkqt ileo-colonic anastomosis in ? the ascending colon. [...] bowel preparation was evaluated using the BBPS (Jolon Bowel ? Preparation Scale) with scores of: [...] been signed electronically. Number of Addenda: 0 us Sergei Cota, M.S. GI PROCEDURE ORDERAB LES Final Result Performing Organization Address City/[facility]/ZIP Co de Phone Number [facility] NA * Colonoscopy-Gastroenterology Image Exam (07/10/2024 [...] PROCE DURES Final Result Performing Organization Address [facility] Co de Phone Number [facility] NA * Syphilis IgG w/ Reflex, EIA, Serum (07/07/2024 2:56 PM CDT) Syphilis IgG w/ Reflex, EIA, S Nonreactive Nonreactive 07/08/2024 8:59 PM CDT [facility] Comment: No serologic evidence of infection with T. pallidum (syphilis). ??Repeat testing may be considered in patients with suspected acute or primary syphilis in 2-4 weeks. For additional information on interpretation of the syphilis reverse algorithm and results, see: [email or web address] Blood (Blood, Venous) 07/07/2024 2:56 PM CDT 07/07/2024 6:52 PM CDT Sergei Cota, M.S. LAB MICROBIOLOGY - B LOOD ORDERABLES Final Result Performing Organization Address [facility] Co de Phone Number [facility] [address] [place] [address] [facility] [address] [place] [address] * HIV-1/-2 Ag and Ab Screen, Plasma (07/07/2024 2:56 PM CDT) [facility] HIV-1/-2 Ag and Ab Screen, P Negative Negative 07/07/2024 9:03 PM CDT [facility] Comment: Negative result does not rule out HIV infection. If exposure to HIV infection occurred <14 days ago, contact the laboratory to request addition of HIV-1/HIV-2 RNA detection, Plasma (HIP12). Blood (Blood, Venous) 07/07/2024 2:56 PM CDT 07/07/2024 7:46 PM CDT Sergei Cota, M.S. LAB MICROBIOLOGY - B LOOD ORDERABLES Final Result Performing Organization Address City/[facility] Co de Phone Number [facility] [address] [place] [address] [facility] [address] [place] [address] * Hepatitis Be Ag and Ab (07/07/2024 2:56 PM CDT) [facility] Hepatitis Be Ag, S Negative Negative 07/07/2024 9:17 PM CDT [facility] Comment: Consumption of high-dose biotin supplement within 12 hours of blood collection for this test can cause false-negative results. HBe Antibody, S Negative Negative 9:17 PM CDT [facility] Blood (Blood, Venous) 07/07/2024 2:56 PM CDT 07/07/2024 7:46 PM CDT Sergei Cota, M.S. LAB MICROBIOLOGY - B LOOD ORDERABLES Final Result Performing Organization Address City/[facility]/ZIP Co de Phone Number [facility] [address] [place] [address] [facility] [address] [place] [address] * HCV Ab Scrn w/Reflex to HCV PCR, Serum (07/07/2024 2:56 PM CDT) Pathologist [facility] HCV Ab Screen, S Negative Negative 07/07/2024 9:11 PM CDT [facility] Comment: Consumption of high-dose biotin supplement within 12 hours of blood collection for this test can cause false-negative results. Blood (Blood, Venous) 07/07/2024 2:56 PM CDT 07/07/2024 7:46 PM CDT Sergei Cota, M.S. LAB MICROBIOLOGY - B LOOD ORDERABLES Final Result Performing Organization Address [facility] de Phone Number [place] [address] [place] [address] [place] [address] * Hepatitis A IgM Ab, Serum (07/07/2024 2:56 PM CDT) [facility] Hepatitis A IgM Ab, S Negative Negative 07/07/2024 9:17 PM CDT [facility] Comment: This result does not exclude the [...] LOOD ORDERABLES Final Result Performing Organization Address City/[facility]/ZIP Co de Phone Number [place] [address] [place] [address] [facility] [address] [place] [address] * HBc Total Ab, Serum (07/07/2024 2:56 PM CDT) HBc Total Ab, S Negative Negative 07/07/2024 9:17 PM CDT [facility] Blood (Blood, Venous) 07/07/2024 2:56 PM CDT 07/07/2024 7:46 PM CDT Sergei KimballSFelicia, M.S. LAB MICROBIOLOGY - B LOOD ORDERABLES Final Result [facility] [address] [place] [address] [facility] [address] [place] [address] * Hepatitis B Surface Antigen (07/07/2024 2:56 PM CDT) Pathologist [facility] HBs Antigen, S Negative Negative 07/07/2024 9:17 PM CDT [facility] Blood (Blood, Venous) 07/07/2024 2:56 PM CDT 07/07/2024 7:46 PM CDT Sergei KimballS., M.S. LAB MICROBIOLOGY - B LOOD ORDERABLES Final Result [facility] [address] [place] [address] [facility] [address] [place] [address] * PET skull to mid thigh-Outside NM [...] System IMG NM PROCEDURES Final R esult Performing Organization Address City/[facility] Co de Phone Number [facility] NA * (ABNORMAL) Electrolyte (Chem 4) Panel (08/06/2016 4:23 AM CDT) Sodium, S 140 135 - 145 MMOL/L [facility] Potassium, S 4.1 3.6 - 5.2 MMOL/L [facility] eGFR-Black/Afri can Wallisian >60 >60 ML/MIN/BSA [facility] BUN (Blood Urea Nitrogen), S 18 8 - 24 MG/DL [facility] Chloride, S 99 98 - 107 MMOL/L [facility] HX Bicarbonate, P/S 27 22 - 29 MMOL/L [facility] Creatinine 1.3 0.8 - 1.3 MG/DL [facility] eGFR Non-Black/Afric an Wallisian 56(L) >60 ML/MIN/BSA [facility] Anion Gap 14 7 - 15 [facility] Glucose, S 95 70 - 140 MG/DL [facility] 08/06/2016 4:23 AM CDT 08/06/2016 4:23 AM CDT Urbano Ibarra M.D., Ph.D. LAB BLOOD ADD-ON Final R esult Performing Organization Address City/[facility]/ZIP Co de Phone Number [facility] [address] [place] [address], [facility] * US Abdomen and Abdomen Doppler (08/04/2016 [...] Electronically signed by: ?? Tasneem Brand ??Annalise [id number] 04-Aug-2016 08:18 Narrative 08/04/2016 8:18 AM CDT 04-Aug-2016 08:08:00 ??Exam: US Abd Cmpl with Doppler Lmtd Indications: [id number] ABDOMEN WITH DOPPLER/liver disease alcoholic/pt w/encephalopathy and heavy alcohol use w/2 cm liver nodule and elevated liver studies. ORIGINAL REPORT - 04-Aug-2016 08:18:00 EXAM: ??US Abdomen Complete with limited color and spectral Doppler analysis COMPARISON: ??CT 08/03/2016 Procedure Note Felipe Brand M.D. - 02/13/2018 04-Aug-2016 08:08:00 Exam: US Abd Cmpl with Doppler Lmtd Indications: [id number] ABDOMEN WITH DOPPLER/liver diseasealcoholic/pt w/encephalopathy and heavy [...] M.D. [id number] 04-Aug-2016 08:18 Jacqueline Tineo M.D. [facility] US PROCEDURES Final Re sult from Last 3 Months or Most Recently Relevant to Health Maintenance Insurance MEDICARE [facility] Care Teams Nutter Up Relationship Specialty Start Date End Date Elsewhere, Pcp PCP - General 12/07/19
--- OUTSIDE RECORDS SUMMARY | 2024-09-03 10:10 | XMS_ITS ---
Author Organization [facility] Address [address] [place] [address] Care Team Providers Care Vocational Evaluator Name Role Phone Elsewhere, Pcp Primary Care [...] Treated Prescribed Fraction Dose Prescribed Total Dose [id number] 09/27/2023 11 300 cGy 3,000 cGy Reference Point Last Treated On Elapsed Days Session Dose Total Dose [id number] 09/27/2023 11 300 cGy 3,000 cGy
--- OUTSIDE RECORDS SUMMARY | 2024-09-03 10:10 | XMS_ITS | Encounter Summary ---
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 [address] [place] [phone] Phone: tel: fax: [facility] Referral ID Status Reason Start Date Expiration Date Visits Re quested Visits Authorized [id number] Closed 07/07/2024 01/06/2026 1 1 Encounter Details Date Type Department Care Team (Latest Contact Info) Description 07/17/2024 1:20 PM CDT Virtual Visit Division of Gastroenterology in [place], [place] [address] [place] [phone] Sergei Martinez M.B.B.S., M.S. [address] [place] [phone] Karen Breaux R.N. 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 - 07/17/2024 1:20 PM CDT REASON FOR CALL Nurse visit requested by Dr. Martinez for fecal transplant follow-up assessment, as well as a review of patient's plan of care. Visit conducted via real-time audio/video technology by Norma Breaux R.N. in [facility] to the patient in patient's home. HISTORY OF PRESENT ILLNESS Mr. Castrejon underwent a fecal transplant on 07/10/2024. Today, the patient reports feeling Good, really good! Average bowel movements per day: 2 per day. Saturday several trips to the bathroom - mostly gas and small amounts of liquid stool Saturday - 2 stools at 11 and 3 'runny' Saturday - stools at 11 and 1 Knox 5 and 6 Saturday - stools at 10 and 11 Knox 5 and 6 Saturday - stools at 9 and 11 - Knox 5 and 6. - stools at 7 and 12 - Knox 3 and 6. Saturday - Stool at 11 - Knox 3-4. Stool consistency: as noted above. Experience of fecal urgency, abdominal cramping, and/or fever (since fecal transplant): No He just had a lot of gas the first two days post FMT. Any testing for C. Difficile since fecal transplant: No Antibiotic use since fecal transplant: No Report of new symptoms since fecal transplant: No ASSESSMENT / PLAN Above information to be shared with patient's provider. Reviewed patient's plan of care as outlined in provider note dated 07/07/2024 . We reviewed that he should be tested for C. Difficile if he would develop watery diarrhea that would last for more than 48 hours and treated if positive. He should also let any provider know that he has a history of C.Diff if he develops an infection that needs antibiotics and ask for narrow spectrum antibiotic treatment and for the shortest duration needed. I also called his daughter Michelle per his request to let her know how he was doing. The patient's questions were answered. Future questions, including report new symptoms, should be directed to the patient's local or primary provider. The patient's provider may request another consult from [facility] if the need arises. Patient stated understanding of the plan of care. 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
--- OUTSIDE RECORDS SUMMARY | 2024-09-03 10:11 | XMS_ITS | Encounter Summary ---
Author Organization [facility] Address [address] [place] [address] Care Team Providers Care Fisher Diving Name Role Phone Elsewhere, Pcp Primary Care Provider Unavailabl e Encounter Details Date Type Department Care Team (Late st Contact Info) Description 06/24/2024 Orders Only Department of Oncology in [place], [place] [address] [place] [address] Leila Arteaga, KASSIDY, P.A.-C., P.A. 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
--- OUTSIDE RECORDS SUMMARY | 2024-09-03 10:11 | XMS_ITS | Encounter Summary ---
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
--- OUTSIDE RECORDS SUMMARY | 2024-09-03 10:11 | XMS_ITS | Encounter Summary ---
Author Organization [facility] Address [address] [place] [address] Care Team Providers Care Cake Inspector Name Role Phone Elsewhere, Pcp Primary Care Provider Unavailabl e Encounter Details Date Type Department Care Team (Latest Contact Info) Description 07/07/2024 2:44 PM CDT - 07/07/2024 11:59 PM CDT Hospital Encounter Department of Laboratory Medicine and Pathology, [facility] in [place], [place] [address] [place] [phone] Sergei Mratinez M.B.B.S., M.S. 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 08/02/2016 omega 7-lyb-qud-fish oil (fish oil) 1,000 mg (120 mg-180 [...] 2 (two) times a day. Equate arthritis pyl4506-occ fjb-[id number]-[id number]-asb-C (MoviPrep) 100-7.5-2.691 gram kit Do first portion of prep at 6 PM the evening before. Second portion must be started 3 hrs before and finished 2 hrs prior to report time. 1 kit 07/07/2024 4 polyethylene glycol-electrolytes (Golytely) 236-22.74-6.74 -5.86 gram solution Do 1st part of prep 6PM the night before procedure. Start 2nd part 3 hrs before report time.Needs to be finished 2 hrs before report time. 4000 mL 07/07/2024 4 documented as of this encounter Plan of Treatment Not on file documented as of this encounter Procedures Procedure Name Priority Date/Time Associated Diagnosis Comments SYPHILIS IGG W/ REFLEX, EIA, S Routine 07/07/2024 2:56 PM CDT 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 Colitis Collagenous HIV-1/-2 AG AND AB SCREEN, PLASMA Routine 07/07/2024 2:56 PM CDT 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 Colitis Collagenous HEPATITIS BE AG AND AB Routine 07/07/2024 2:56 PM CDT Enterocolitis Due [...] Collagenous documented in this encounter Results * Syphilis IgG w/ Reflex, EIA, Serum (07/07/2024 2:56 PM CDT) Syphilis IgG w/ Reflex, EIA, S Nonreactive Nonreactive 07/08/2024 8:59 PM CDT [facility] Comment: No serologic evidence of infection with T. pallidum (syphilis). ??Repeat testing may be considered in patients with suspected acute or primary syphilis in 2-4 weeks. For additional information on interpretation of the syphilis reverse algorithm and results, see: [email or web address] Blood (Blood, Venous) 07/07/2024 2:56 PM CDT 07/07/2024 6:52 PM CDT Sergei SorianoBFeliciaS., M.S. LAB MICROBIOLOGY - B LOOD ORDERABLES Final Result [facility] [address] [place] [address] [facility] [address] [place] [address] * HIV-1/-2 Ag and Ab Screen, Plasma (07/07/2024 2:56 PM CDT) [facility] HIV-1/-2 Ag and Ab Screen, P Negative Negative 07/07/2024 9:03 PM CDT [facility] Comment: Negative result does not rule out HIV infection. If exposure to HIV infection occurred <14 days ago, contact the laboratory to request addition of HIV-1/HIV-2 RNA detection, Plasma (HIP12). Blood (Blood, Venous) 07/07/2024 2:56 PM CDT 07/07/2024 7:46 PM CDT Sergei Cota, M.S. LAB MICROBIOLOGY - B LOOD ORDERABLES Final Result Performing Organization Address [facility] Co de Phone Number [facility] [address] [address] [place] [address] * Hepatitis Be Ag and Ab (07/07/2024 2:56 PM CDT) [facility] Hepatitis Be Ag, S Negative Negative 07/07/2024 9:17 PM CDT [facility] Comment: Consumption of high-dose biotin supplement within 12 hours of blood collection for this test can cause false-negative results. HBe Antibody, S Negative Negative 9:17 PM CDT [facility] Blood (Blood, Venous) 07/07/2024 2:56 PM CDT 07/07/2024 7:46 PM CDT Sergei Cota, M.S. LAB MICROBIOLOGY - B LOOD ORDERABLES Final Result Performing Organization Address City/[facility]/ZIP Co de Phone Number [facility] [address] [address] [place] [phone] [place] [address] * Hepatitis B Surface Antigen (07/07/2024 2:56 PM CDT) HBs Antigen, S Negative Negative 07/07/2024 9:17 PM CDT [facility] Blood (Blood, Venous) 07/07/2024 2:56 PM CDT 07/07/2024 7:46 PM CDT Sergei Cota, M.S. LAB MICROBIOLOGY - B LOOD ORDERABLES Final Result Performing Organization Address [facility] Co de Phone Number [facility] [address] [place] [address] [facility] [address] [place] [address] * HBc Total Ab, Serum (07/07/2024 2:56 PM CDT) [facility] HBc Total Ab, S Negative Negative 07/07/2024 9:17 PM CDT [facility] Blood (Blood, Venous) 07/07/2024 2:56 PM CDT 07/07/2024 7:46 PM CDT Result [facility] Sergei KimballSFelicia, M.S. LAB MICROBIOLOGY - B LOOD ORDERABLES Final Result Performing Organization Address [facility] Co de Phone Number [facility] [address] [place] [address] [facility] [address] [place] [address] * Hepatitis A IgM Ab, Serum (07/07/2024 2:56 PM CDT) [facility] Hepatitis A IgM Ab, S Negative Negative 07/07/2024 9:17 PM CDT [facility] Comment: This result does not exclude [...] LOOD ORDERABLES Final Result Performing Organization Address [facility] Co de Phone Number [facility] [address] [place] [address] [facility] [address] [place] [address] * HCV Ab Scrn w/Reflex to HCV PCR, Serum (07/07/2024 2:56 PM CDT) HCV Ab Screen, S Negative Negative 07/07/2024 9:11 PM CDT [facility] Comment: Consumption of high-dose biotin supplement within 12 hours of blood collection for this test can cause false-negative results. Blood (Blood, Venous) 07/07/2024 2:56 PM CDT 07/07/2024 7:46 PM CDT Sergei Cota, M.S. LAB MICROBIOLOGY - B LOOD ORDERABLES Final Result Performing Organization Address [facility] Co de Phone Number [facility] [address] [place] [address] [facility] [address] [place] [address] documented in this encounter Visit Diagnoses Diagnosis 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 Colitis Collagenous documented in this encounter Care Teams Cake Inspector Relationship Specialty Start Date End Date Elsewhere, Pcp PCP - General 12/07/19 documented as of this encounter
--- OUTSIDE RECORDS SUMMARY | 2024-09-03 10:11 | XMS_ITS | Encounter Summary ---
Author Organization 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 [address] [place] [address] Phone: tel:[phone] fax: [facility] Region Referral ID Status Reason Start Date Expiration Date V isits Requested Visits Authorized [id number] Closed Specialty Services Required 06/24/2024 12/24/2025 1 1 Encounter Details Date Type Department Care Team (Late st Contact Info) Description 06/24/2024 Orders Only Department of Oncology in [place], [place] [address] [place] [phone] Leila Arteaga MPAS, P.A.-C., P.A. 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
--- OUTSIDE RECORDS SUMMARY | 2024-09-03 10:11 | XMS_ITS | Encounter Summary ---
Author Organization [facility] Address [address] [place] [address] Care Team Providers Care Traffic Controller Cable Name Role Phone Elsewhere, Pcp Primary Care Provider Unavailabl e Reason for Visit * Outpatient (Routine) - Closed Specialty Diagnoses / Procedures Referred By Contact Referred To Contact Gastroenterology and Hepatology Sergei Martinez M.B.B.S., M.S. [address] [place] [phone] Phone: tel: fax: [facility] Referral ID Status Reason Start Date Expiration Date Visits Re quested Visits Authorized [id number] Closed 07/07/2024 01/06/2026 1 1 Encounter Details Date Type Department Care Team (Late st Contact Info) Description 07/07/2024 2:00 PM CDT Nurse Only Division of Gastroenterology in [place], [place] [address] [place] [phone] Sergei Martinez M.B.B.S., M.S. 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 - 07/07/2024 2:00 PM CDT Education provided on . See Education History Report within medical record for more details. 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
--- OUTSIDE RECORDS SUMMARY | 2024-09-03 10:11 | XMS_ITS | Encounter Summary ---
Author Organization [facility] Address [address] [place] [address] Care Team Providers Care Movie Stunt Performer Name Role Phone Elsewhere, Pcp Primary Care Provider Unavailabl e Encounter Details Date Type Department Care Team (Late st Contact Info) Description 07/09/2024 Orders Only Pharmacy Prior Auth RO [phone] Denise Castañeda Social History Tobacco Use Types Packs/Day Years Used Date Smoking Tobacco: Former Cigarettes Q uit: 2016 Smokeless Tobacco: Never Alcohol Use Standard Drinks/Week Comments Yes 2 (1 standard drink = 0.6 oz pur e alcohol) every other day [facility] Utilities Answer Date Recorded In the past 12 months has th e electric, gas, oil, or water [employer] threatened to shut off services in your [...] PM CDT 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
--- OUTSIDE RECORDS SUMMARY | 2024-09-03 10:11 | XMS_ITS | Encounter Summary ---
Author Organization [facility] Address [address] [place] [address] Care Team Providers Care Physician [facility] Name Role Phone Elsewhere, Pcp Primary Care Provider Unavailabl e Encounter Details Date Type Department Care Team (Late st Contact Info) Description 06/18/2024 Orders Only Department of Gastroenterology in [place], [place] [address] [place] [phone] Lissy Hammer, MPAS, P.A.-C., P.A. 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
--- OUTSIDE RECORDS SUMMARY | 2024-09-03 10:11 | XMS_ITS | Clinical Summary ---
Author Organization [employer] Address [place], [place] [address] Care Team Providers Care Medical Coder Name Role Phone Andrei Burnham MD Primary Care Provider [phone] Allergies No known active allergies Medications Medication [...] Encounters Date Type Department Care Team Description 07/02/2024 Lab Requisition [facility] [phone] Unknown, Doctor from Last 3 Months Family History Medical [...] 1 - PCV) 2019 COVID-19 vaccine series (2023- season) 2024 12/05/2021, 02/22/2021, 01/25/2021 Influenza for age 65+ 07/19/2024 Medical Devices Implanted Type Area Inside [employer] Device Identifier Shelf Expiration Date Model / Serial / Lot Patch Vasc 0.8x8cm Biological Peripatch - [id number] Implanted:Qty: 1 on 10/07/2013 by Devin Cardoza MD at [facility] Left: Carotid Artery [employer] 06/17/2016 0.8P8# / / [id number] Procedures Procedure Name Priority Date/Time Associated Diagnosis Comments PERIPHERAL BLD MORPHOLOGY Routine 07/02/2024 1:08 PM CDT LAB TRACKING EVENT Routine 07/01/2024 1: 08 PM CDT LIPID PANEL Early AM 05/30/2013 5:25 AM CDT from Last 3 Months or Most Recently Relevant to Health Maintenance Results * PERIPHERAL BLD MORPHOLOGY (07/02/2024 1:08 PM CDT) Case Report Special Hematology Report ? Case: [id number] ? Authorizing Provider: ??Unknown, Doctor ?Collected: ? 07/02/2024 1308 ? Ordering Location: ? [facility] ?Received: ?07/03/2024 0856 ? Pathologist: ? Devin Ricks MD ? Specimen: ?Peripheral Blood ? 07/03/2024 1:24 PM CDT [email or web address] Final Diagnosis PERIPHERAL BLOOD: 1. Mild macrocytic anemia 2. Moderate thrombocytopenia 3. Moderate lymphocytopenia with a normal absolute neutrophil count 4. See comment 07/03/2024 1:24 PM CDT [email or web address] Comment The features of the macrocytic anemia are nonspecific. The most common etiologies include B12/folate deficiency, liver disease, hypothyroidism, alcohol use and certain medications. Increased serum proteins (monoclonal and polyclonal) can falsely elevate the MCV (consider SPEP as clinically indicated). There is no evidence of dysplasia on this review. The features of the thrombocytopenia are nonspecific. Thrombocytopenia may be secondary to medication, immune-mediated processes, infection (viral and bacterial, including Helicobacter pylori), heparin, splenomegaly and increased consumption. There is no evidence of platelet clumping. This case was also reviewed by Lindsey Noble MT, MS ([facility]). 07/03/2024 1:24 PM CDT [facility] Clinical Information The patient is a 69-year-old male. Per CBC scan: Small cell lung cancer and maintenance chemotherapy, persistent C. difficile, and thrombocytopenia. 07/03/2024 1:24 PM CDT [facility] CBC and Differential HEMATOLOGY PARAMETERS Tested at: ??[facility] ? RESULTS ??EXPECTED VALUES WBC: ? 5.4 ?4.5-40g3456/cumm ? RBC: ? 3.25 ? 4.30-5.90 mil/cumm ??DECREASED HGB: ? 10.9 ? 13.5-17.5 gm/di ? DECREASED HCT: ? 33.6 ? 37-53% ?DECREASED MCV: ? 103.4 ?80-100 fl ? MACROCYTIC MCH: ? 33.5 ? 26-34 pg ? MCHC: ?32.4 ? 32-36 gm/dl ? NORMOCHROMIC RDW: ? 17.1 ? 11.5-15.5% ?ELEVATED PLT: ? 66 ? 140-094u5603/uL ? DECREASED Retic: ?? 1.86 ? 0.5-1.5% ?ELEVATED Differential ?Tested at: ??[facility] ?Absolute (%) ?Expected (%) ?(x10*9/L) ? (x10*9/L) Neutrophils: ?4.15 (76.6) ? 1.7-7.0 (42-72%) ? Lymphocytes: ?0.56 (10.3) ? 0.9-2.9 (20-44%) ??DECREASED Monocytes: ?0.62 (11.4) ?<0.9 (0-11%) ? Eosinophils: ?0.01 (.2) ?<0.5 (0-2%) ? Basophils: ?0.02 (.4) ?<0.3 (<3.0%) ? Imm Grans: ?0.06 (1.1) ? <0.3 (0-3%) ? (Metas, Myelos,Pros) 07/03/2024 1:24 PM CDT [facility] Reticulocytes Retic: 1.86 0.5-1.5% ELEVATED 07/03/2024 1:24 PM CDT [facility] Microscopic Description The final diagnosis is based on microscopic examination of an appropriately stained blood smear. 07/03/2024 1:24 PM CDT [facility] Additional Information Interpreted at [facility], Central Laboratory - [address] [address] 07/03/2024 1:24 PM CDT [facility] Blood (Peripheral Blood) 07/02/2024 1:08 PM CDT 07/03/2024 8:56 AM CDT Doctor Unknown HEMATOLOGY [facility] [address] [place] [address], * LAB TRACKING EVENT (07/01/2024 1:08 PM CDT) Other (Other) Client Collect / Unknown 07/01/2024 1:08 PM CDT 07/02/2024 10:42 PM CDT Doctor Unknown LAB BILL ONLY [facility] [address] [place] [address], * Lipid Panel - In AM (05/30/2013 5:25 AM CDT) [facility] Signature CHOLESTEROL,TOTA L 112 100 - 199 mg/dL [facility] TRIGLYCERIDES 126 <150 mg/dL [facility] HDL CHOLESTEROL 49 >40 mg/dL [facility] CHOL/HDL RATIO 2.29 <4.50 [facility] NON-HDL CHOLESTEROL 63 Undefined mg/dL [facility] LDL CHOLESTEROL 38 <131 mg/dL [facility] PATIENT STATUS Fasting [facility] Blood specimen (specimen) BLOOD SPECIMEN / Unknown 05/30/2013 5:25 AM CDT 05/29/2013 11:10 PM CDT Pranav Bennett MD CHEMISTRY [facility] [place]NAL ZIP [phone] [place] [id number] from Last 3 Months or Most Recently [...] 11:10 PM 05/31/2013 3:24 PM Care Teams Medical Coder Relationship Specialty Start Date End Date Andrei Burnham MD PCP - General Family Practice 06/08/13
--- OUTSIDE RECORDS SUMMARY | 2024-09-03 10:11 | XMS_ITS | Encounter Summary ---
Author Organization [facility] Address [address] [place] [id number] Care Team Providers Care Set Illustrator Name Role Phone Elsewhere, Pcp Primary Care Provider Unavailabl e Reason for Referral * Outpatient (Routine) - Closed Specialty Diagnoses / Procedures Referred By Murray baxter Referred To Contact Diagnoses 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 Colitis Collagenous Procedures Colonoscopy restricted Sergei Martinez M.B.B.S., M.S. [address] [place] [phone] Phone: tel: fax: [facility] Referral ID Status Reason Start Date Expiration Date Visits Re quested Visits Authorized [id number] Closed 07/07/2024 07/07/2025 1 1 * Outpatient (Routine) - Closed Specialty Diagnoses / Procedures Referred By Murray t Referred To Contact Video Medicine Diagnoses 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 Colitis Collagenous Sergei Martinez M.B.B.S., M.S. [address] [place] [phone] Phone: tel: fax: [facility] Referral ID Status Reason Start Date Expiration Date Visits Re quested Visits Authorized [id number] Closed 07/07/2024 01/06/2026 1 1 Scheduling Instructions Schedule VV for one week after the Colonoscopy with FMT is completed. IF THE FMT gets rescheduled, please move this appointment out as well. Teams Message Consultative RN's when Video Visit is ready. * Outpatient (Routine) - Closed Specialty Diagnoses / Procedures Referred By Contact Referred To Contact Gastroenterology and Hepatology Sergei Martinez M.B.B.S., M.S. [address] [place] [address] Phone: tel: fax: [facility] Referral ID Status Reason Start Date Expiration Date Visits Re quested Visits Authorized [id number] Closed 07/07/2024 01/06/2026 1 1 Scheduling Instructions This visit is to be a face to face nurse visit with the patient immediately after the MD visit. Schedule on the GI GENERAL RN CALENDAR after the MD is done with the patient. Teams message or secure Chat the Consultative poultry tender same day to do education. 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 [address] [place] [address] Phone: tel:[phone] fax:[phone] Referral ID Status Reason Start Date Expiration Date Visits Re quested Visits Authorized [id number] Closed 06/19/2024 06/19/2025 1 1 Encounter Details Date Type Department Care Team (Latest Contact Info) Description 07/07/2024 1:10 PM CDT Comprehensive Visit Division of Gastroenterology in [place], [place] [address] [place] [address] Sergei Martinez M.B.B.S., M.S. 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); Diarrhea Social History Tobacco Use Types Packs/Day Years Used Date Smoking Tobacco: Former Cigarettes Q uit: 2016 Smokeless Tobacco: Never Alcohol Use Standard Drinks/Week Comments Yes 2 (1 standard drink = 0.6 oz pur e alcohol) every other day [facility] Utilities Answer Date Recorded In the past 12 months has e [employer], gas, oil, or water [employer] threatened to shut off services in your [...] PM CDT 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 Gender Identity Male 07/11/2024 2:15 PM CDT Sexual Orientation Straight 07/11/2024 2: 15 PM CDT documented as of this encounter Last Filed Vital Signs Vital Sign Reading Time Taken Comments Blood Pressure 173/74 07/07/2024 1:28 PM CDT Pulse 107 07/07/2024 1:28 PM CDT Temperature - - Respiratory Rate - - Oxygen Saturation - - Inhaled Oxygen Concentration - - Weight 64.4 kg (142 lb 1.4 oz) 07/07/2024 1:28 P M CDT Height 162.6 cm (5' 4.02) 07/07/2024 1:28 PM CD T Body Mass Index 24.38 07/07/2024 1:28 PM CDT documented in this encounter Patient Instructions * Patient Instructions* Sergei Martinez M.B.B.S., M.S. - 07/07/2024 1:10 PM CDT RECOMMENDATIONS: 1. Continue fidaxomicin (Dificid) 200 mg twice a day and C. difficile treatment to be stopped 24 hours before fecal transplant and not resumed after that. 2. Fecal transplant via means of colonoscopy. FMT colonoscopy is not designed to look for colon polyps. We will perform random biopsies to look for collagenous colitis and also evaluate for immunotherapy stated colitis. 3. Transient symptoms like constipation, diarrhea and abdominal discomfort are common after fecal transplantation and tend to self resolve usually. If there is recurrent diarrhea beyond 1 week of fecal transplant, stool should be tested for C. difficile. 4. Recommend to continue budesonide as outlined for him. He has been given 9 mg for about 8 weeks and then taper after that. I discussed with him that he does not need to open up the capsules and putthem in applesauce and he can swallow them whole as we are trying to treat collagenous colitis. 5. Depending on the results of the biopsies may need to do additional evaluation and testing. 6. He would need to continue immunotherapy regimen under the guidance of his treating providers. Ifthere is evidence of immunotherapy: This then we may need to make informed decisions based on that. 7. In general, before considering antibiotics for an infection, it should be ascertained if the infection in question is a bacterial infection or not. If there is confirmed bacterial infection or high suspicion of bacterial infection, then antibiotics are indicated. If antibiotics are indicated, they should be prescribed. Indicated antibiotic for bacterial infections should not be withheld for fear of future C. difficile infection. Antibiotic use for prophylaxis should be discussed on a case bycase basis. For future antibiotic exposure, I would recommend to use narrow spectrum antibiotics for the lowest duration of time possible. Broad-spectrum antibiotics such as clindamycin should be avoided. If antibiotics are prescribed, symptoms of diarrhea should be observed for. If there is new onset watery diarrhea with 3 or more bowel movements a day for 2 days in a row, stool should be testedfor C. difficile infection. FOLLOW UP RECOMMENDATIONS: We will follow up with him virtually and have 1 of our nurses see him about a week after the procedure. MEDICATION REFILLS: I have sent a prescription for a bowel prep to his preferred pharmacy. Frequently Asked Questions About Fecal Microbiota Transplantation 1)Does insurance cover the cost of fecal microbiota transplantation (FMT) also known as fecal transplant? Insurance coverage varies based on your insurance policy. Check with your insurance company to findout what coverage your policy has for colonoscopy and FMT (CPT code: 48859). Some insurance companies require pre-authorization before a FMT is performed. If your insurance company requires pre-authorization, contact the [facility]Certification Department at [phone] to get the pre-authorizationprocess started. 2) When do I stop taking my antibiotics such as vancomycin (Vancocin???), fidaxomicin (Dificid???) or metronidazole (Flagyl???) before my fecal transplant? Stop these antibiotics 24 hours before your FMT. You should not take these antibiotics after your FMT. 3) What do I do if I am taking other antibiotics before my fecal transplant? All other antibiotics should be stopped 24 hours before your fecal transplant. If you have been prescribed a new antibiotic between when you were seen at the [facility] and your scheduled fecal transplant contact the [facility] at [phone] 8am-5pm Saturday-Saturday for instructions on what to do. 4) What about my probiotics? We recommend stopping probiotics before FMT and not resuming after FMT. In general, in patients whoare asymptomatic, we do not recommend probiotics for gut health to prevent C difficile. We typically recommend a high fiber diet as fiber acts as a prebiotic and helps with the gut francisco. 5) How long does fecal transplant take to work? Symptoms usually are gone 1-3 days after your fecal transplant. Sometimes it can take up to one week for symptoms to resolve. If symptoms of diarrhea occur or persist after one week, contact the [facility] or your primary care provider. We will follow up with you at one week after the FMT - You can write down what type of bowel movements you have but we don't start consideration for re-testing until after the 7th day post FMT. 6) I am having mild abdominal cramps, constipation or loose stools (not watery) after fecal transplant. Is that normal? These symptoms are expected and should get better within one week. If any of these symptoms persistor get worse contact the [facility] or your primary care provider. (We will contact you one week after the FMT) 7 I am having severe abdominal cramping that I did not have before my fecal transplant. What shouldI do? Go to the nearest Emergency Department to be evaluated. 8) What do I do if I continue to have diarrhea one week after my fecal transplant? If you are having 3 or more loose, watery stools in a 24-hour period, contact your primary care provider to have a repeat stool test for C. difficile. A stool kit for C. difficile can be mailed to your home address if needed by calling the [facility]. 9) What should I do if I need antibiotics for an infection after my fecal transplant? Confirm with your health care provider that this is an infection that requires treatment with antibiotics. In general, before considering antibiotics for an infection, it should be ascertained if the infection in question is a bacterial infection or not. If there is confirmed bacterial infection or high suspicion of bacterial infection, then antibiotics are indicated. If antibiotics are indicated, they should be prescribed. Indicated antibiotic for bacterial infections should not be withheld for fear of future C difficile infection. Antibiotic use for prophylaxis should be discussed on a case by case basis. For future antibiotic exposure, we recommend use of a narrow spectrum antibiotic for the lowest duration of time possible. Broad-spectrum antibiotics such as clindamycin should be avoided. If antibiotics are prescribed, symptoms of diarrhea should be observed for. If there is new onset watery diarrhea with 3 or more bowel movements a day for 2 days in a row, stool should be tested for C difficile infection. 10) Do I take prophylactic vancomycin if I get antibiotics in the future? We do not recommend that you take prophylactic vancomycin after FMT. If diarrhea symptoms return, contact your primary care provider to get retested for recurrent C. difficile infection. * Attachments The following attachments cannot be sent through Care Everywhere. * Clostridioides Difficile (C. Diff): Information for You, Your Family and Friends ([place]) * Fecal Transplant ([place]) documented in this encounter Consult Notes * Sergei Martinez M.B.B.S., M.S. - 07/07/2024 1:10 PM CDT Outpatient Consultation SUBJECTIVE Cr Castrejon [phone] REFERRING PHYSICIAN: Leila Arteaga P.A.-C. 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 Castrejon is a very pleasant 69 y.o. male who is being seen in clinic today. 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 Mr. Castrejon has been diagnosed with lung cancer and he has had chemotherapy, radiation and also immunotherapy. This year, he started having diarrhea. He was diagnosed with C difficile infection. Based on my review of the medical record, on April 21 he tested positive for C difficile and was given vancomycin with some improvement in symptoms. Symptoms returned on May 05 and he was given fidaxomicin for 10 days with improvement of symptoms. Due to ongoing diarrhea, he underwent a colonoscopy that demonstrated collagenous colitis. He was initially given prednisolone with some improvement in diarrhea symptoms. On June 11, C difficile was positive. He was also given a taper of the prednisolone but he had symptoms of steroid side effects and prednisolone was then switched to budesonide. He was also placed on fidaxomicin that he has been taking for about 3 weeks now. Current medical regimen is fidaxomicin twice daily and budesonide 9 mg a day. He has been advised to up in the budesonide capsules and take them in applesauce. He continues to have up to 4 bowel movements a day. Some of them are loosely formed. He does have fecal urgency. He has had fecal incontinence. We are seeing each other to delineate what could be contributing to his current symptomatology. We also want to figure out a way for him to get rid of C difficile infection with certainty. REVIEW OF SYSTEMS All other systems reviewed and negative unless mentioned in the history of present illness, patientprovided information or problem list. HISTORY REVIEW: The following portions of the patient's history were reviewed and updated as appropriate: allergies, current medications, family history, medical history, social history, surgical history and problemlist. OBJECTIVE VITAL SIGNS BP (!) 173/74 (BP Location: Left arm, Patient Position: Sitting, Cuff Size: Regular) Pulse 107 Ht 162.6 cm Wt 64.4 kg BMI 24.38 kg/m?? PHYSICAL EXAMINATION General: Sitting comfortably in no acute distress. Psychiatric: Awake, alert and oriented. Skin: No obvious rashes. 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 Castrejon is a very pleasant 69 y.o. 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 Mr. Lucía Sykes has multiple causes of diarrhea. While he does have collagenous colitis, that isalso recurrent C difficile and also possibility of colitis due to his immunotherapy regimen. His current regimen is atezolizumab. I discussed the epidemiology and risk factors for C. difficile infection with him, which include antibiotic exposure, hospitalization, comorbidities, and age over 65 years. C. difficile infection waspreviously considered to be hospital- acquired infection, but studies over the last few years have shown that up to 40% of all C. difficile infection can indeed be community-acquired, which happens inpatients who are younger and have fewer comorbidities. We discussed the pathophysiology of C. difficile infection, including the fact that there is disruption of the distal gut micro francisco upon antibiotic exposure. In addition, we also discussed that therisk of recurrence after C. difficile infection can be up to 20% after a first infection, 40% aftera second infection, and 60% or higher after a third infection. We discussed that we need to better manage his C difficile infection in his collagenous colitis together and also look for immunotherapy associated colitis. We discussed the importance of bacteria based therapy. We discussed that bacteria based therapy can be done via a colonoscopy, capsules or enemas. A colonoscopy will be beneficial in his situation as we could look for other causes of diarrhea, progression of collagenous colitis and development of immunotherapy associated colitis. We discussed the implications of fecal transplantation and the fact that one needs to identify a healthy stool donor. Donor can be either a standard (available at [facility]) or a related donor (friend or family member). Both standard and related donors have to undergo history, physical examination, blood tests in the form of hepatitis A, hepatitis B, hepatitis C, HIV, and syphilis; and stool tests in the form of VRE, C. difficile, bacterial enteric pathogens, Cryptosporidium, and Microsporidia. Fecal transplant is not FDA-approved, and the FDA advises a risk/benefit discussion prior to performing fecal transplant. Potential risks include transmitting infections and diseases that cannot be tested for by our standard screening methodologies. We also discussed the 2 cases of multi-drug organi sm/ESBL transmission that were reported by the FDA into patients who were immunocompromised (one person ) and received fecal transplantation for a research indication other than C. difficile infection. We screen for multi-drug resistant organisms in our program. There may be a need for insurance prior authorization before fecal transplantation. We discussed the implications of the COVID-19 pandemic. The novel coronavirus is not just a respiratory pathogen but is also stool pathogen. Studies have shown that patients who have COVID-19, can shed this virus in the stool. Studies have also shown that patients could be asymptomatic after havinga recent infection and still have this virus in the stool. Our donors are asymptomatic but we cannot rule out asymptomatic carriage of this virus in donor stool. At this time, we do not have a validated stool test for COVID-19. We have employed a strategy to check our donors for COVID-19 with a nose swab and also with blood test for the antibody. This does not eliminate the risk but mitigates therisk of COVID-19 transmission with FMT. Symptomatic patients need to undergo a brief period of therapy with medications to manage C. difficile infection. Stool recipients then undergo a bowel preparation for colonoscopy and stop vancomycinthe day prior to fecal transplant. Fifty grams of donor stool is blended in 250 cc of normal salineand implanted into the recipient colon by means of a colonoscopy. No additional vancomycin is recommended after fecal transplant. The response rates from fecal transplant are as high as 90% success with no relapses in one year. If there is ongoing watery diarrhea after fecal transplant, he would contact me. RECOMMENDATIONS: 1. Continue fidaxomicin (Dificid) 200 mg twice a day and C. difficile treatment to be stopped 24 hours before fecal transplant and not resumed after that. 2. Fecal transplant via means of colonoscopy. FMT colonoscopy is not designed to look for colon polyps. We will perform random biopsies to look for collagenous colitis and also evaluate for immunotherapy stated colitis. 3. Transient symptoms like constipation, diarrhea and abdominal discomfort are common after fecal transplantation and tend to self resolve usually. If there is recurrent diarrhea beyond 1 week of fecal transplant, stool should be tested for C. difficile. 4. Recommend to continue budesonide as outlined for him. He has been given 9 mg for about 8 weeks and then taper after that. I discussed with him that he does not need to open up the capsules and putthem in applesauce and he can swallow them whole as we are trying to treat collagenous colitis. 5. Depending on the results of the biopsies may need to do additional evaluation and testing. 6. He would need to continue immunotherapy regimen under the guidance of his treating providers. Ifthere is evidence of immunotherapy: This then we may need to make informed decisions based on that. 7. In general, before considering antibiotics for an infection, it should be ascertained if the infection in question is a bacterial infection or not. If there is confirmed bacterial infection or high suspicion of bacterial infection, then antibiotics are indicated. If antibiotics are indicated, they should be prescribed. Indicated antibiotic for bacterial infections should not be withheld for fear of future C. difficile infection. Antibiotic use for prophylaxis should be discussed on a case bycase basis. For future antibiotic exposure, I would recommend to use narrow spectrum antibiotics for the lowest duration of time possible. Broad-spectrum antibiotics such as clindamycin should be avoided. If antibiotics are prescribed, symptoms of diarrhea should be observed for. If there is new onset watery diarrhea with 3 or more bowel movements a day for 2 days in a row, stool should be testedfor C. difficile infection. FOLLOW UP RECOMMENDATIONS: We will follow up with him virtually and have 1 of our nurses see him about a week after the procedure. MEDICATION REFILLS: I have sent a prescription for a bowel prep to his preferred pharmacy. PATIENT EDUCATION: Ready to learn, no apparent learning barriers were identified; learning preferences include listening. Explained diagnosis and treatment plan; patient expressed understanding of the content. Cipriano Reyes, M.S. 07/07/2024 documented in this encounter Plan of Treatment Scheduled Referrals Name Type Priority Associated Diagnoses Order Schedule Gastroenterology nurse visit (clinic) Outpatient Referral Routine Expected: 07/07/2024, Expires: 10/06/[address] Outpatient Referral Routine 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 Colitis Collagenous Expected: 07/13/2024 (Approximate), Expires: 10/06/2025 documented as of this encounter Results * Syphilis IgG w/ Reflex, EIA, Serum (07/07/2024 2:56 PM CDT) Syphilis IgG w/ Reflex, EIA, S Nonreactive Nonreactive 07/08/2024 8:59 PM CDT [facility] Comment: No serologic evidence of infection with T. pallidum (syphilis). ??Repeat testing may be considered in patients with suspected acute or primary syphilis in 2-4 weeks. For additional information on interpretation of the syphilis reverse algorithm and results, see: [email or web address] Blood (Blood, Venous) 07/07/2024 2:56 PM CDT 07/07/2024 6:52 PM CDT Sergei Cota, M.S. LAB MICROBIOLOGY - B LOOD ORDERABLES Final Result [facility] [address] [place] [address] [facility] [address] [place] [address] * HIV-1/-2 Ag and Ab Screen, Plasma (07/07/2024 2:56 PM CDT) Pathologist [facility] HIV-1/-2 Ag and Ab Screen, P Negative Negative 07/07/2024 9:03 PM CDT [facility] Comment: Negative result does not rule out HIV infection. If exposure to HIV infection occurred <14 days ago, contact the laboratory to request addition of HIV-1/HIV-2 RNA detection, Plasma (HIP12). Blood (Blood, Venous) 07/07/2024 2:56 PM CDT 07/07/2024 7:46 PM CDT Result [facility] Sergei Cota, M.S. LAB MICROBIOLOGY - B LOOD ORDERABLES Final Result Performing Organization Address [facility] Co de Phone Number [facility] [address] [place] [address] [facility] [address] [place] [address] * Hepatitis Be Ag and Ab (07/07/2024 2:56 PM CDT) Hepatitis Be Ag, S Negative Negative 07/07/2024 9:17 PM CDT [facility] Comment: Consumption of high-dose biotin supplement within 12 hours of blood collection for this test can cause false-negative results. HBe Antibody, S Negative Negative 9:17 PM CDT [facility] Blood (Blood, Venous) 07/07/2024 2:56 PM CDT 07/07/2024 7:46 PM CDT Result [facility] Sergei Cota, M.S. LAB MICROBIOLOGY - B LOOD ORDERABLES Final Result Performing Organization Address [facility] Co de Phone Number [facility] [address] [place] [address] [facility] [address] [place] [address] * Hepatitis B Surface Antigen (07/07/2024 2:56 PM CDT) HBs Antigen, S Negative Negative 07/07/2024 9:17 PM CDT [facility] Blood (Blood, Venous) 07/07/2024 2:56 PM CDT 07/07/2024 7:46 PM CDT Sergei Cota, M.S. LAB MICROBIOLOGY - B LOOD ORDERABLES Final Result Performing Organization Address City/[facility]/ZIP Co de Phone Number [facility] [address] [place] [address] [facility] [address] [place] [address] * HBc Total Ab, Serum (07/07/2024 2:56 PM CDT) Pathologist [facility] HBc Total Ab, S Negative Negative 07/07/2024 9:17 PM CDT [facility] Blood (Blood, Venous) 07/07/2024 2:56 PM CDT 07/07/2024 7:46 PM CDT Result [facility] Sergei Cota, M.S. LAB MICROBIOLOGY - B LOOD ORDERABLES Final Result Performing Organization Address [facility] Co de Phone Number [facility] [address] [place] [address] [facility] [address] [place] [address] * Hepatitis A IgM Ab, Serum (07/07/2024 2:56 PM CDT) [facility] Hepatitis A IgM Ab, S Negative Negative 07/07/2024 9:17 PM CDT [facility] Comment: This result does not exclude the possibility of recent exposure to hepatitis A virus. ??Antibody level during early infection stage may be below the limit of detection of the assay. Consumption of high-dose biotin supplement within 12 hours of blood collection for this test can cause false-negative results. Blood (Blood, Venous) 07/07/2024 2:56 PM CDT 07/07/2024 7:46 PM CDT Result [facility] Sergei Cota, M.S. LAB MICROBIOLOGY - B LOOD ORDERABLES Final Result Performing Organization Address City/[facility]/ZIP Co de Phone Number [facility] [address] [place] [address] [facility] [address] [place] [address] * HCV Ab Scrn w/Reflex to HCV PCR, Serum (07/07/2024 2:56 PM CDT) HCV Ab Screen, S Negative Negative 07/07/2024 9:11 PM CDT [facility] Comment: Consumption of high-dose biotin supplement within 12 hours of blood collection for this test can cause false-negative results. Blood (Blood, Venous) 07/07/2024 2:56 PM CDT 07/07/2024 7:46 PM CDT us Sergei SorianoB.S., M.S. LAB MICROBIOLOGY - B LOOD ORDERABLES Final Result [facility] [address] [place] [address] [facility] [address] 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
--- OUTSIDE RECORDS SUMMARY | 2024-09-03 10:11 | XMS_ITS | Encounter Summary ---
Author Organization [facility] Address [address] [place] [address] Care Team Providers Care Structural Steel Shop Supervisor Name Role Phone Elsewhere, Pcp Primary Care Provider Unavailabl e Reason for Visit * Reason Onset Date Comments Rx Denial 07/08/2024 [id number] 100GM- Encounter Details Date Type Department Care Team (Latest Contact Info) Description 07/08/2024 Clinical Communication Division of Gastroenterology in [place], [place] [address] [place] [phone] Sergei Martinez M.B.B.S., M.S. [address] [place] [phone] Rx Denial ([id number] [facility]-NA [facility]-C 100GM- ) Social History Tobacco Use Types Packs/Day Years Used Date Smoking Tobacco: Former Cigarettes Q uit: 2016 Smokeless Tobacco: Never Alcohol Use Standard Drinks/Week Comments Yes 2 (1 standard drink = 0.6 oz pur e alcohol) every other day [facility] Utilities Answer Date Recorded In [...] PM CDT Legal Sex Male 9:12 AM RINKMAN Gender Identity Male 07/11/2024 2:15 PM CDT Sexual Orientation Straight 07/11/2024 2: 15 PM CDT documented as of this encounter Plan of Treatment Not on file documented as of this encounter Visit Diagnoses Not on filedocumented in this encounter Care Teams Structural Steel Shop Supervisor Relationship Specialty Start Date End Date Elsewhere, Pcp PCP - General 12/07/19 documented as of this encounter
--- OUTSIDE RECORDS SUMMARY | 2024-09-03 10:11 | XMS_ITS | Referral Summary ---
Author Organization [place] Address [address] [place] [address] Care Team Providers Care Automotive Sales Associate Name Role Phone Jez Burnham MD Primary Care Provider [phone] Allergies No known active allergies Medications Medication [...] Information Patient not taking.Reported on 10/23/2021 Aspirin Buf,HaFfmj-IqDwct-X gO, 81 MG TABS Take 81 mg [...] Comments Blood Pressure 131/80 10/23/2021 3:00 PM DEVELOPER ADVISOR Pulse 97 10/23/2021 3:00 PM DEVELOPER ADVISOR Temperature - - Respiratory Rate 18 10/23/2021 3:00 PM DEVELOPER ADVISOR Oxygen Saturation 98% 10/23/2021 3:00 PM DEVELOPER ADVISOR Inhaled Oxygen Concentration - - Weight 68.5 kg (151 lb) 10/23/2021 3:00 PM DEVELOPER ADVISOR Height 167.6 cm (5' 6) 10/23/2021 3:00 PM DEVELOPER ADVISOR Body Mass Index 24.37 10/23/2021 3:00 PM DEVELOPER ADVISOR Plan of Treatment Not on file Care Teams Automotive Sales Associate Relationship Specialty Start Date End Date Jez Burnham MD PCP - General Family Medicine 10/09/21
--- OUTSIDE RECORDS SUMMARY | 2024-09-03 10:11 | XMS_ITS | Clinical Summary ---
Author Organization [place] Address [address] [place] [address] Care Team Providers Care Client Renewal Specialist Name Role Phone Jez Burnham MD Primary Care Provider [phone] Allergies No known active allergies Medications Medication [...] Information Patient not taking.Reported on 10/23/2021 Aspirin Buf,JeQvxn-WfTfjp-O gO, 81 MG TABS Take 81 mg [...] Comments Blood Pressure 131/80 10/23/2021 3:00 PM PRESS OPERATOR CARBON BLOCKS Pulse 97 10/23/2021 3:00 PM PRESS OPERATOR CARBON BLOCKS Temperature - - Respiratory Rate 18 10/23/2021 3:00 PM PRESS OPERATOR CARBON BLOCKS Oxygen Saturation 98% 10/23/2021 3:00 PM PRESS OPERATOR CARBON BLOCKS Inhaled Oxygen Concentration - - Weight 68.5 kg (151 lb) 10/23/2021 3:00 PM PRESS OPERATOR CARBON BLOCKS Height 167.6 cm (5' 6) 10/23/2021 3:00 PM PRESS OPERATOR CARBON BLOCKS Body Mass Index 24.37 10/23/2021 3:00 PM PRESS OPERATOR CARBON BLOCKS Plan of Treatment Health Maintenance Due Date Last Done Comments ADVANCE CARE PLANNING 1955 ANNUAL REVIEW OF HM ORDERS 1954 CT COLONOGRAPHY 1954 FIT 1954 FLEX SIG 1955 GLUCOSE 1955 LIPID 1954 sDNA (Cologuard) 1955 COLONOSCOPY 02/25/1964 COLORECTAL CANCER SCREENING 02/25/1964 HEPATITIS C SCREENING 02/25/1972 LUNG CANCER SCREENING 02/25/2004 MEDICARE ANNUAL WELLNESS VISIT 2019 Pneumococcal Vaccine: 65+ Years (2 of 2 - PCV) 2019 05/08/2013 FALL RISK ASSESSMENT 10/23/2022 10/23/2021 PHQ-2 (once per calendar year) 2023 COVID-19 Vaccine (3 - 2023- season) 2024 02/22/2021, 01/25/2021 INFLUENZA VACCINE (#1) 2024 , 08/16/2021, 09/05/2020, Additional history exists RSV VACCINE (1 - 1-dose 75+ series) 2029 DTAP/TDAP/TD IMMUNIZATION (4 - Td or Tdap) [...] age to complete this topic Care Teams Client Renewal Specialist Relationship Specialty Start Date End Date Jez Burnham MD PCP - General Family Medicine 10/09/21
--- NOTE | 2024-09-03 10:15 | CRLHL7_ITS ---
For Patients: As a result of the Century Cures Act, medical imaging exams and procedure reports are released immediately into your electronic medical record. You may view this report before your referring provider. If you have questions, please contact your health care provider. INDICATION: Small-cell lung cancer. TECHNIQUE: Multisequence multiplanar MRI of the brain prior to and following administration of 20 cc Dotarem gadolinium-based intravenous contrast. COMPARISON: MRI brain dated 05/30/2023. FINDINGS: No focus of abnormal or suspicious contrast enhancement. No evidence of acute ischemia. Scattered foci of T2 prolongation within the supratentorial white matter of both cerebral hemispheres. Unchanged small focus of cortical encephalomalacia within the right frontal lobe (series 5 and 6, image 34) consistent with sequela of prior infarct. Stable chronic lacunar infarcts within the right basal ganglia and left cerebellum. New chronic lacunar infarct within the left basal ganglia. Punctate foci of susceptibility artifact within the left frontal lobe and right temporal lobe. Moderate diffuse parenchymal volume loss. No ventricular obstruction. Flow voids of the larger intracranial arteries are preserved. Normal calvarial bone marrow signal intensity. Unremarkable orbits. Mild diffuse paranasal sinus mucosal thickening. IMPRESSION: 1. No evidence of intracranial metastasis. 2. No acute intracranial abnormality. 3. Similar moderate diffuse parenchymal volume loss and mild chronic small vessel ischemic changes. 4. Stable small chronic cortical infarct within the right frontal lobe. 5. Unchanged chronic lacunar infarcts within the right basal ganglia and left cerebellum. New chronic lacunar infarct within the left basal ganglia. 6. Punctate foci of susceptibility artifact within the left frontal lobe and right temporal lobe consistent with sequela of prior microhemorrhage. 7. Mild diffuse paranasal sinus mucosal thickening. Dictated by Vineet Gotti MD @ 09/03/2024 3:47:41 PM (Electronically Signed)
== END 2024-09-03 10:04 | disposition home or self-care (01) ==
LOC: MRI 10:03
PROVIDERS: PCP Family Medicine; Visit Provider Internal Medicine Hematology & Oncology
DX: C34.90 Malignant neoplasm of unspecified part of unspecified bronchus or lung (principal); I67.82 Cerebral ischemia; I63.81 Other cerebral infarction due to occlusion or stenosis of small artery
CPT/HCPCS: 70553; A9575

== ENCOUNTER 2024-11-19 10:00 | Outpatient (RCR) | payer MEDICARE, BC, SELFPAY ==
[2024-06-11 10:09] LABS: CDIFFEPI 027 PRESUMPTIVE NEGATIVE (Negative)
[2024-06-11 10:19] LABS: C.Difficile POSITIVE (Negative)
[2024-06-14 22:31] LABS: Calprotectin, Fecal 92 ug/g (<=49)
--- NOTE | 2024-06-15 13:11 | ONC.NURNOTE ---
Bowel Symptoms Update Received automated refill request for Prednisone taper. Pt should not need a refill on this taper; called pt to confirm he did not lose any pills and to check in. Per pt he transitioned from 3 Pred tabs/day to 2 Pred tabs/day yesterday 06/14. Reviewing bowel symptoms, pt reports he had 4 loose stools yesterday. Prior to that he has been having 1 formed stool/day except for 06/05 and 06/11 where he had 2 loose stools those days. Otherwise he reports he is tolerating the pills well. Reviewed with Mara Hutchinson APRN. [facility] to call pt 06/16 to check in again and review his assessment with her.
[2024-06-18 12:04] LABS: C.Difficile POSITIVE (Negative); CDIFFEPI 027 PRESUMPTIVE NEGATIVE (Negative)
--- NOTE | 2024-06-18 12:40 | ONC.NURNOTE ---
Dificid 200mg BID X 10 days #20 To be delivered from [facility] Patient Assistance Program in 2-3 days Terence was enrolled in April and enrollment is though 05/08/2025 [facility] ph # [phone] [facility] # [phone]
[2024-06-18] MEDS: 0.9 % SODIUM CHLORIDE 250 ml IV (16:24)
[2024-06-18] MEDS: SODIUM CHLORIDE 0.9 % (FLUSH) 10 ML SYRINGE IVF (16:25)
[2024-06-18] MEDS: HEPARIN 500 UNIT/5 ML SYRINGE IVF (16:25)
[2024-06-19 14:33] VITALS: BP 144/86; PULSE 103; RESP 16; TEMP 36.8; O2SAT 96
[2024-06-19] MEDS: 0.9 % SODIUM CHLORIDE 250 ml IV (15:08)
[2024-06-19] MEDS: SODIUM CHLORIDE 0.9 % (FLUSH) 10 ML SYRINGE IVF ×2 (15:11→16:08)
[2024-06-19] MEDS: HEPARIN 500 UNIT/5 ML SYRINGE IVF (16:07)
[2024-06-20 14:08] VITALS: BP 148/93; PULSE 93; RESP 18; TEMP 36.7; O2SAT 97
[2024-06-20] MEDS: 0.9 % SODIUM CHLORIDE 250 ml IV (14:19)
[2024-06-20] MEDS: SODIUM CHLORIDE 0.9 % (FLUSH) 10 ML SYRINGE IVF ×2 (14:20→15:39)
[2024-06-20] MEDS: HEPARIN 500 UNIT/5 ML SYRINGE IVF (15:39)
--- NOTE | 2024-06-20 17:21 | PC.NURSE ---
Outpatient infusion-- Pleasant and cooperative patient given outpatient infusion of Methylprednisolone via accessed port on Med-surg without difficulties. VSS and pt was afebrile. Pt tolerated infusion well and was discharged with port accessed for another infusion tomorrow.
[2024-06-21 13:48] VITALS: BP 138/82; PULSE 90; RESP 18; TEMP 36.7; O2SAT 95
[2024-06-21] MEDS: SODIUM CHLORIDE 0.9 % (FLUSH) 10 ML SYRINGE IVF (14:44)
[2024-06-21] MEDS: HEPARIN 500 UNIT/5 ML SYRINGE IVF (14:44)
[2024-06-22 12:58] VITALS: BP 129/76; PULSE 99; RESP 14; TEMP 36.6; O2SAT 95
[2024-06-22] MEDS: HEPARIN 500 UNIT/5 ML SYRINGE IVF (14:05)
[2024-06-22] MEDS: 0.9 % SODIUM CHLORIDE 250 ml IV (14:05)
[2024-06-22] MEDS: SODIUM CHLORIDE 0.9 % (FLUSH) 10 ML SYRINGE IVF (14:05)
[2024-06-23 15:03] LABS: Basophils Absolute Auto 0.01 K/uL (0.00-0.30); Basophils Percent Auto 0.1 % (0.0-3.0); Hematocrit 35.4 % (37.0-53.0); Hemoglobin* 11.6 gm/dL (13.5-17.5); Immature Granulocytes Abs Auto 0.29 K/uL (0.00-0.30); Immature Granulocytes Pct Auto 3.2 %; Lymphocytes Percent Auto 4.8 % (20-44); Mean Corpuscular HGB Conc 33 gm/dL (32-36); Mean Corpuscular Hemoglobin 33 pg (26-34); Mean Corpuscular Volume 101 fL (80-100); Monocytes Percent Auto 9.8 % (0.0-11.0); Neutrophils Percent Auto 82.1 % (42.0-72.0); Platelet Count* 89 K/uL (140-440); RDW Coefficient of Variation % 16.5 % (11.5-15.5); Red Blood Count 3.51 m/uL (4.30-5.90)
[2024-06-23 15:07] LABS: Slide Review Reflex No
[2024-06-23 15:19] LABS: Albumin* 3.7 g/dL (3.3-5.0); Chloride* 104 mmol/L (96-114); Potassium* 4.1 mmol/L (3.6-5.1); Sodium* 137 mmol/L (135-149)
[2024-06-23 15:22] LABS: Alanine Aminotransferase* 39 U/L (4-50); Alkaline Phosphatase* 47 U/L (40-150); Anion Gap 4 mEq/L (7-15); Aspartate Amino Transferase* 33 U/L (12-35); Bilirubin Total* 0.9 mg/dL (0.1-1.5); Blood Urea Nitrogen* 49 mg/dL (7-30); Carbon Dioxide* 29 mmol/L (20-32); Creatinine* 1.3 mg/dL (0.5-1.5); Estimated Glomerular Filt Rate 59 ml/min; Glucose* 132 mg/dL (60-115); Total Protein* 5.9 g/dL (6.0-8.3)
[2024-06-23 15:23] LABS: Calcium* 8.8 mg/dL (8.4-10.6)
[2024-06-23 16:31] LABS: Thyroid Stimulating Hormone* 0.411 uIU/mL (0.270-4.20)
[2024-06-24] MEDS: SODIUM CHLORIDE 0.9 % (FLUSH) 10 ML SYRINGE IVF ×2 (09:40→10:36)
[2024-06-24] MEDS: 0.9 % SODIUM CHLORIDE 250 ml IV (09:40)
[2024-06-24] MEDS: HEPARIN 500 UNIT/5 ML SYRINGE IVF (10:35)
--- NOTE | 2024-06-30 13:06 | ONC.NURNOTE ---
Per [facility]- -Jeane Arteaga is on the enrollment application and therefore is the provider to authorize refills -there are no constraints on the number of refills requested over the course of the enrollment in the [facility] program New refill order received for Dificid/fidaxomicin 200mg tab, one BID daily X 21 days disp #42 with 1 refill called to [facility] [phone]
[2024-07-01 13:16] LABS: Basophils Absolute Auto 0.02 K/uL (0.00-0.30); Basophils Percent Auto 0.4 % (0.0-3.0); Eosinophils Absolute Auto 0.01 K/uL (0.00-0.50); Eosinophils Percent Auto 0.2 % (0.0-7.0); Hematocrit 33.6 % (37.0-53.0); Hemoglobin* 10.9 gm/dL (13.5-17.5); Immature Granulocytes Abs Auto 0.06 K/uL (0.00-0.30); Immature Granulocytes Pct Auto 1.1 %; Lymphocytes Percent Auto 10.3 % (20-44); Mean Corpuscular HGB Conc 32 gm/dL (32-36); Mean Corpuscular Hemoglobin 34 pg (26-34); Mean Corpuscular Volume 103 fL (80-100); Monocytes Percent Auto 11.4 % (0.0-11.0); Neutrophils Percent Auto 76.6 % (42.0-72.0); Platelet Count* 66 K/uL (140-440); RDW Coefficient of Variation % 17.1 % (11.5-15.5); Red Blood Count 3.25 m/uL (4.30-5.90); White Blood Count* 5.42 K/uL (4.50-11.00)
--- NOTE | 2024-07-01 13:17 | ONC.NURNOTE ---
Terence has requested a GI consult appt in [place] instead of [place] the consult was previously placed and his currently active Terence was given the phone number to call to set up an appt he was advised to ask for the soonest available- he may need to be triaged for an earlier appt- they are scheduling about 2 months out
[2024-07-01 13:18] LABS: Slide Review Reflex No
--- NOTE | 2024-07-01 16:19 | ONC.NURNOTE ---
Pt here for labs today; feeling well, denies s/s bleeding. Plt lower this week at 66. Reviewed with Mara Hutchinson APRN. Pt to bring in stool sample for guiac testing in the next 1-2 days. Recheck CBC in 1 wk. Pt has consult with [facility] for C-Diff next 07/07. Pt verbalizes understanding of plan.
[2024-07-02 12:31] LABS: Fecal Occult Blood* Negative (Negative)
[2024-07-02 12:43] LABS: Immature Reticulocyte Fraction 12.8 % (2.3-13.4); Reticulocyte Hemoglobin Equivi 36.4 pg (29.0-35.0); Reticulocyte Percent 1.9 % (0.5-2.0); Reticulocytes Absolute 0.06 # (0.03-0.08)
[2024-07-02 14:14] LABS: Iron* 177 ug/dL (49-181)
[2024-07-02 14:24] LABS: Percent Iron Saturation 92 % (20-50); Total Iron Binding Capacity 193 ug/dL (261-462)
[2024-07-02 15:01] LABS: Vitamin B12* 328 pg/mL (243-894)
[2024-07-03 18:49] LABS: Folate, Serum >22.3 ng/mL (>=5.9)
[2024-07-09 10:09] LABS: Basophils Absolute Auto 0.04 K/uL (0.00-0.30); Basophils Percent Auto 0.8 % (0.0-3.0); Eosinophils Absolute Auto 0.06 K/uL (0.00-0.50); Eosinophils Percent Auto 1.2 % (0.0-7.0); Hematocrit 34.1 % (37.0-53.0); Hemoglobin* 10.9 gm/dL (13.5-17.5); Immature Granulocytes Abs Auto 0.04 K/uL (0.00-0.30); Immature Granulocytes Pct Auto 0.8 %; Lymphocytes Absolute Auto 1.06 K/uL (0.90-2.90); Lymphocytes Percent Auto 21.3 % (20-44); Mean Corpuscular HGB Conc 32 gm/dL (32-36); Mean Corpuscular Hemoglobin 34 pg (26-34); Mean Corpuscular Volume 105 fL (80-100); Monocytes Percent Auto 13.7 % (0.0-11.0); Neutrophils Absolute Auto 3.09 K/uL (1.7-7.0); Neutrophils Percent Auto 62.2 % (42.0-72.0); Platelet Count* 109 K/uL (140-440); RDW Coefficient of Variation % 16.7 % (11.5-15.5); Red Blood Count 3.24 m/uL (4.30-5.90); White Blood Count* 4.97 K/uL (4.50-11.00)
[2024-07-09 10:10] LABS: Slide Review Reflex No
[2024-07-09] MEDS: SODIUM CHLORIDE 0.9 % (FLUSH) 10 ML SYRINGE IVF (10:18)
[2024-07-09] MEDS: HEPARIN 500 UNIT/5 ML SYRINGE IVF (10:18)
--- NOTE | 2024-07-09 10:25 | PC.NURSE ---
Pt at [facility] for labs today. Terence shares that he saw GI at [place] and is scheduled for a colonoscopy and fecal transplant tomorrow, 07/10/2024. He was instructed to stop Probiotic and Dificid. Mara Curran APRN aware. CBC done, platelet count 109. Port accessed for labs and left accessed for procedure tomorrow. Faxed lab result to [facility] along with a note re: port. Called pt with updated platelet count.
[2024-07-14] MEDS: HEPARIN 500 UNIT/5 ML SYRINGE IVF (14:04)
[2024-07-14] MEDS: SODIUM CHLORIDE 0.9 % (FLUSH) 10 ML SYRINGE IVF (14:04)
[2024-07-14 14:12] LABS: Basophils Absolute Auto 0.02 K/uL (0.00-0.30); Basophils Percent Auto 0.4 % (0.0-3.0); Eosinophils Absolute Auto 0.04 K/uL (0.00-0.50); Eosinophils Percent Auto 0.7 % (0.0-7.0); Hematocrit 33.6 % (37.0-53.0); Hemoglobin* 10.8 gm/dL (13.5-17.5); Immature Granulocytes Abs Auto 0.08 K/uL (0.00-0.30); Immature Granulocytes Pct Auto 1.5 %; Lymphocytes Percent Auto 10.2 % (20-44); Mean Corpuscular HGB Conc 32 gm/dL (32-36); Mean Corpuscular Hemoglobin 34 pg (26-34); Mean Corpuscular Volume 105 fL (80-100); Monocytes Percent Auto 15.5 % (0.0-11.0); Neutrophils Absolute Auto 3.95 K/uL (1.7-7.0); Neutrophils Percent Auto 71.7 % (42.0-72.0); Platelet Count* 216 K/uL (140-440); RDW Coefficient of Variation % 15.6 % (11.5-15.5)
[2024-07-14 14:14] LABS: Slide Review Reflex No
[2024-07-14 14:24] LABS: Albumin* 4.1 g/dL (3.3-5.0); Chloride* 105 mmol/L (96-114); Sodium* 139 mmol/L (135-149)
[2024-07-14 14:25] LABS: Potassium* 4.4 mmol/L (3.6-5.1)
[2024-07-14 14:27] LABS: Alanine Aminotransferase* 22 U/L (4-50); Alkaline Phosphatase* 68 U/L (40-150); Anion Gap 5 mEq/L (7-15); Aspartate Amino Transferase* 22 U/L (12-35); Bilirubin Total* 0.6 mg/dL (0.1-1.5); Blood Urea Nitrogen* 22 mg/dL (7-30); Calcium* 9.3 mg/dL (8.4-10.6); Carbon Dioxide* 29 mmol/L (20-32); Creatinine* 1.5 mg/dL (0.5-1.5); Estimated Glomerular Filt Rate 50 ml/min; Glucose* 184 mg/dL (60-115); Total Protein* 6.5 g/dL (6.0-8.3)
[2024-07-15] MEDS: CYANOCOBALAMIN 1,000 MCG/ML inj 1000 MCG IM (10:36)
[2024-07-15] MEDS: SODIUM CHLORIDE 0.9 % (FLUSH) 10 ML SYRINGE IVF (11:15)
[2024-07-15] MEDS: HEPARIN 500 UNIT/5 ML SYRINGE IVF (11:15)
[2024-07-18 01:58] LABS: Calprotectin, Fecal 181 ug/g (<=49)
[2024-07-22] MEDS: CYANOCOBALAMIN 1,000 MCG/ML inj 1000 MCG IM (11:26)
[2024-07-29 11:14] VITALS: BP 154/91; PULSE 99; RESP 16; TEMP 36.9; O2SAT 98
[2024-07-29] MEDS: CYANOCOBALAMIN 1,000 MCG/ML inj 1000 MCG IM (11:25)
[2024-08-04] MEDS: SODIUM CHLORIDE 0.9 % (FLUSH) 10 ML SYRINGE IVF (10:11)
[2024-08-04] MEDS: HEPARIN 500 UNIT/5 ML SYRINGE IVF (10:11)
[2024-08-04 10:17] LABS: Basophils Absolute Auto 0.03 K/uL (0.00-0.30); Basophils Percent Auto 0.4 % (0.0-3.0); Eosinophils Percent Auto 1.4 % (0.0-7.0); Hematocrit 35.3 % (37.0-53.0); Hemoglobin* 11.3 gm/dL (13.5-17.5); Immature Granulocytes Abs Auto 0.05 K/uL (0.00-0.30); Immature Granulocytes Pct Auto 0.7 %; Lymphocytes Percent Auto 13.4 % (20-44); Mean Corpuscular HGB Conc 32 gm/dL (32-36); Mean Corpuscular Hemoglobin 34 pg (26-34); Mean Corpuscular Volume 106 fL (80-100); Neutrophils Percent Auto 72.1 % (42.0-72.0); Platelet Count* 125 K/uL (140-440); RDW Coefficient of Variation % 15.7 % (11.5-15.5); Red Blood Count 3.34 m/uL (4.30-5.90); White Blood Count* 7.01 K/uL (4.50-11.00)
[2024-08-04 10:19] LABS: Slide Review Reflex No
[2024-08-04 10:35] LABS: Chloride* 104 mmol/L (96-114); Sodium* 139 mmol/L (135-149)
[2024-08-04 10:36] LABS: Potassium* 3.7 mmol/L (3.6-5.1)
[2024-08-04 10:38] LABS: Alanine Aminotransferase* 17 U/L (4-50); Alkaline Phosphatase* 62 U/L (40-150); Anion Gap 7 mEq/L (7-15); Aspartate Amino Transferase* 22 U/L (12-35); Bilirubin Total* 0.6 mg/dL (0.1-1.5); Blood Urea Nitrogen* 29 mg/dL (7-30); Carbon Dioxide* 28 mmol/L (20-32); Creatinine* 1.1 mg/dL (0.5-1.5); Est. Creatinine Clearance* 52.32; Estimated Glomerular Filt Rate 72 ml/min; Glucose* 97 mg/dL (60-115); Total Protein* 6.5 g/dL (6.0-8.3)
[2024-08-04 10:39] LABS: Calcium* 9.3 mg/dL (8.4-10.6)
[2024-08-05 11:11] VITALS: BP 164/88; PULSE 102; RESP 16; TEMP 36.4; O2SAT 99
[2024-08-05] MEDS: HEPARIN 500 UNIT/5 ML SYRINGE IVF (12:20)
[2024-08-05] MEDS: CYANOCOBALAMIN 1,000 MCG/ML inj 1000 MCG IM (12:20)
[2024-08-05] MEDS: SODIUM CHLORIDE 0.9 % (FLUSH) 10 ML SYRINGE IVF (12:20)
[2024-08-12] MEDS: CYANOCOBALAMIN 1,000 MCG/ML inj 1000 MCG IM (09:15)
[2024-08-20 11:21] VITALS: BP 120/77; PULSE 106; RESP 16; TEMP 36.8; O2SAT 95
[2024-08-20] MEDS: CYANOCOBALAMIN 1,000 MCG/ML inj 1000 MCG IM (11:25)
[2024-08-25] MEDS: HEPARIN 500 UNIT/5 ML SYRINGE IVF (14:17)
[2024-08-25] MEDS: SODIUM CHLORIDE 0.9 % (FLUSH) 10 ML SYRINGE IVF (14:17)
[2024-08-25 14:27] LABS: Basophils Absolute Auto 0.01 K/uL (0.00-0.30); Basophils Percent Auto 0.2 % (0.0-3.0); Eosinophils Absolute Auto 0.01 K/uL (0.00-0.50); Eosinophils Percent Auto 0.2 % (0.0-7.0); Hematocrit 39.3 % (37.0-53.0); Hemoglobin* 12.4 gm/dL (13.5-17.5); Immature Granulocytes Abs Auto 0.04 K/uL (0.00-0.30); Immature Granulocytes Pct Auto 0.7 %; Lymphocytes Percent Auto 7.4 % (20-44); Mean Corpuscular HGB Conc 32 gm/dL (32-36); Mean Corpuscular Hemoglobin 33 pg (26-34); Mean Corpuscular Volume 106 fL (80-100); Monocytes Percent Auto 11.8 % (0.0-11.0); Neutrophils Percent Auto 79.7 % (42.0-72.0); Platelet Count* 119 K/uL (140-440); RDW Coefficient of Variation % 14.5 % (11.5-15.5); Red Blood Count 3.72 m/uL (4.30-5.90); White Blood Count* 6.08 K/uL (4.50-11.00)
[2024-08-25 14:28] LABS: Slide Review Reflex No
[2024-08-25 14:53] LABS: Albumin* 4.2 g/dL (3.3-5.0)
[2024-08-25 14:54] LABS: Chloride* 103 mmol/L (96-114); Potassium* 4.5 mmol/L (3.6-5.1); Sodium* 139 mmol/L (135-149)
[2024-08-25 14:56] LABS: Anion Gap 8 mEq/L (7-15); Aspartate Amino Transferase* 29 U/L (12-35); Bilirubin Total* 0.4 mg/dL (0.1-1.5); Carbon Dioxide* 28 mmol/L (20-32); Creatinine* 1.3 mg/dL (0.5-1.5); Est. Creatinine Clearance* 44.27; Estimated Glomerular Filt Rate 59 ml/min
[2024-08-25 14:57] LABS: Alanine Aminotransferase* 21 U/L (4-50); Alkaline Phosphatase* 100 U/L (40-150); Blood Urea Nitrogen* 27 mg/dL (7-30); Calcium* 9.5 mg/dL (8.4-10.6); Glucose* 159 mg/dL (60-115); Total Protein* 6.8 g/dL (6.0-8.3)
[2024-08-25 19:48] LABS: Thyroid Stimulating Hormone* 0.798 uIU/mL (0.270-4.20)
[2024-08-26 11:01] VITALS: BP 134/80; PULSE 101; RESP 22; TEMP 36.6; O2SAT 97
[2024-08-26] MEDS: CYANOCOBALAMIN 1,000 MCG/ML inj 1000 MCG IM (11:54)
[2024-08-26] MEDS: HEPARIN 500 UNIT/5 ML SYRINGE IVF (12:55)
[2024-08-26] MEDS: SODIUM CHLORIDE 0.9 % (FLUSH) 10 ML SYRINGE IVF (12:55)
[2024-09-03 09:44] VITALS: BP 154/95; PULSE 101; RESP 16; TEMP 35.9; O2SAT 97
[2024-09-03] MEDS: CYANOCOBALAMIN 1,000 MCG/ML inj 1000 MCG IM (09:56)
[2024-09-03] MEDS: SODIUM CHLORIDE 0.9 % (FLUSH) 10 ML SYRINGE IVF ×2 (10:00→11:30)
--- NOTE | 2024-09-03 10:09 | PC.NURSE ---
Pt present at [facility] for port access for MRI and Vitamin B12 shot. Spit stitch noted on upper outer corner of port. Surrounding skin red/irritated and tender. Site cleaned thoroughly with chloraprep then protruding suture picked up and snipped off. End of suture retracted into skin opening. Cleaned skin thoroughly again with chloraprep and then port accessed for MRI per protocol.
[2024-09-03] MEDS: HEPARIN 500 UNIT/5 ML SYRINGE IVF (11:30)
[2024-09-15 14:26] LABS: Basophils Percent Auto 0.7 % (0.0-3.0); Eosinophils Percent Auto 1.2 % (0.0-7.0); Hematocrit 36.2 % (37.0-53.0); Hemoglobin* 11.7 gm/dL (13.5-17.5); Immature Granulocytes Pct Auto 0.2 %; Lymphocytes Percent Auto 30.1 % (20-44); Mean Corpuscular HGB Conc 32 gm/dL (32-36); Mean Corpuscular Hemoglobin 33 pg (26-34); Mean Corpuscular Volume 102 fL (80-100); Monocytes Percent Auto 15.9 % (0.0-11.0); Neutrophils Percent Auto 51.9 % (42.0-72.0); Platelet Count* 97 K/uL (140-440); RDW Coefficient of Variation % 14.2 % (11.5-15.5); Red Blood Count 3.55 m/uL (4.30-5.90); White Blood Count* 4.15 K/uL (4.50-11.00)
[2024-09-15 14:43] LABS: Slide Review Reflex No
[2024-09-15 14:45] LABS: Albumin* 3.9 g/dL (3.3-5.0); Chloride* 100 mmol/L (96-114)
[2024-09-15 14:46] LABS: Potassium* 4.5 mmol/L (3.6-5.1); Sodium* 135 mmol/L (135-149)
[2024-09-15 14:48] LABS: Alanine Aminotransferase* 30 U/L (4-50); Alkaline Phosphatase* 73 U/L (40-150); Anion Gap 8 mEq/L (7-15); Aspartate Amino Transferase* 41 U/L (12-35); Bilirubin Total* 0.5 mg/dL (0.1-1.5); Blood Urea Nitrogen* 20 mg/dL (7-30); Carbon Dioxide* 27 mmol/L (20-32); Creatinine* 1.4 mg/dL (0.5-1.5); Est. Creatinine Clearance* 41.11; Estimated Glomerular Filt Rate 54 ml/min; Glucose* 99 mg/dL (60-115); Total Protein* 6.3 g/dL (6.0-8.3)
[2024-09-15 14:49] LABS: Calcium* 9.3 mg/dL (8.4-10.6)
[2024-09-15 17:10] LABS: Thyroid Stimulating Hormone* 0.893 uIU/mL (0.270-4.20)
[2024-09-16 10:56] VITALS: BP 119/74; PULSE 58; RESP 16; TEMP 35.7; O2SAT 96
[2024-09-16] MEDS: SODIUM CHLORIDE 0.9 % (FLUSH) 10 ML SYRINGE IVF (12:32)
[2024-09-16] MEDS: HEPARIN 500 UNIT/5 ML SYRINGE IVF (12:32)
[2024-10-06 14:16] LABS: Carbon Dioxide* 21 mmol/L (20-32)
[2024-10-06 14:26] LABS: Basophils Absolute Auto 0.04 K/uL (0.00-0.30); Basophils Percent Auto 0.6 % (0.0-3.0); Eosinophils Absolute Auto 0.04 K/uL (0.00-0.50); Eosinophils Percent Auto 0.6 % (0.0-7.0); Hemoglobin* 12.2 gm/dL (13.5-17.5); Immature Granulocytes Abs Auto 0.07 K/uL (0.00-0.30); Lymphocytes Percent Auto 15.8 % (20-44); Mean Corpuscular HGB Conc 32 gm/dL (32-36); Mean Corpuscular Hemoglobin 33 pg (26-34); Mean Corpuscular Volume 102 fL (80-100); Monocytes Percent Auto 9.1 % (0.0-11.0); Neutrophils Percent Auto 72.9 % (42.0-72.0); Platelet Count* 168 K/uL (140-440); RDW Coefficient of Variation % 14.1 % (11.5-15.5); Red Blood Count 3.72 m/uL (4.30-5.90); White Blood Count* 7.03 K/uL (4.50-11.00)
[2024-10-06 14:28] LABS: Slide Review Reflex No
[2024-10-06 14:44] LABS: Chloride* 104 mmol/L (96-114)
[2024-10-06 14:45] LABS: Albumin* 4.2 g/dL (3.3-5.0); Anion Gap 12 mEq/L (7-15); Sodium* 137 mmol/L (135-149)
[2024-10-06 14:47] LABS: Creatinine* 1.4 mg/dL (0.5-1.5); Est. Creatinine Clearance* 41.11; Estimated Glomerular Filt Rate 54 ml/min
[2024-10-06 14:48] LABS: Alanine Aminotransferase* 21 U/L (4-50); Alkaline Phosphatase* 64 U/L (40-150); Aspartate Amino Transferase* 31 U/L (12-35); Bilirubin Total* 0.5 mg/dL (0.1-1.5); Blood Urea Nitrogen* 24 mg/dL (7-30); Glucose* 215 mg/dL (60-115); Total Protein* 6.6 g/dL (6.0-8.3)
[2024-10-06 14:49] LABS: Calcium* 9.5 mg/dL (8.4-10.6)
[2024-10-06 16:25] LABS: Thyroid Stimulating Hormone* 0.885 uIU/mL (0.270-4.20)
[2024-10-07 09:57] VITALS: BP 132/75; PULSE 91; RESP 16; TEMP 36.6; O2SAT 97
[2024-10-07] MEDS: HEPARIN 500 UNIT/5 ML SYRINGE IVF (11:19)
[2024-10-07] MEDS: SODIUM CHLORIDE 0.9 % (FLUSH) 10 ML SYRINGE IVF (11:19)
[2024-10-27 14:38] LABS: Albumin* 4.2 g/dL (3.3-5.0); Chloride* 105 mmol/L (96-114); Potassium* 4.1 mmol/L (3.6-5.1); Sodium* 141 mmol/L (135-149)
[2024-10-27 14:41] LABS: Alanine Aminotransferase* 24 U/L (4-50); Alkaline Phosphatase* 62 U/L (40-150); Anion Gap 11 mEq/L (7-15); Aspartate Amino Transferase* 35 U/L (12-35); Bilirubin Total* 0.6 mg/dL (0.1-1.5); Blood Urea Nitrogen* 26 mg/dL (7-30); Calcium* 9.2 mg/dL (8.4-10.6); Carbon Dioxide* 25 mmol/L (20-32); Creatinine* 1.5 mg/dL (0.5-1.5); Est. Creatinine Clearance* 38.37; Estimated Glomerular Filt Rate 50 ml/min; Glucose* 125 mg/dL (60-115); Total Protein* 6.6 g/dL (6.0-8.3)
[2024-10-27 14:42] LABS: Basophils Absolute Auto 0.04 K/uL (0.00-0.30); Basophils Percent Auto 0.6 % (0.0-3.0); Eosinophils Absolute Auto 0.05 K/uL (0.00-0.50); Eosinophils Percent Auto 0.8 % (0.0-7.0); Hematocrit 35.2 % (37.0-53.0); Hemoglobin* 11.3 gm/dL (13.5-17.5); Immature Granulocytes Abs Auto 0.01 K/uL (0.00-0.30); Immature Granulocytes Pct Auto 0.2 %; Mean Corpuscular HGB Conc 32 gm/dL (32-36); Mean Corpuscular Hemoglobin 33 pg (26-34); Mean Corpuscular Volume 103 fL (80-100); Monocytes Percent Auto 10.8 % (0.0-11.0); Neutrophils Percent Auto 69.6 % (42.0-72.0); Platelet Count* 134 K/uL (140-440); RDW Coefficient of Variation % 14.2 % (11.5-15.5); Red Blood Count 3.41 m/uL (4.30-5.90); White Blood Count* 6.46 K/uL (4.50-11.00)
[2024-10-27 14:46] LABS: Slide Review Reflex No
[2024-10-27 15:42] LABS: Thyroid Stimulating Hormone* 0.758 uIU/mL (0.270-4.20)
[2024-10-28 09:55] VITALS: BP 141/71; PULSE 89; RESP 16; TEMP 36.2; O2SAT 99
[2024-10-28] MEDS: SODIUM CHLORIDE 0.9 % (FLUSH) 10 ML SYRINGE IVF ×2 (10:35→11:16)
[2024-10-28] MEDS: HEPARIN 500 UNIT/5 ML SYRINGE IVF (11:16)
[2024-11-17 11:18] LABS: Basophils Absolute Auto 0.07 K/uL (0.00-0.30); Basophils Percent Auto 1.1 % (0.0-3.0); Eosinophils Absolute Auto 0.05 K/uL (0.00-0.50); Eosinophils Percent Auto 0.8 % (0.0-7.0); Hematocrit 36.2 % (37.0-53.0); Hemoglobin* 11.7 gm/dL (13.5-17.5); Immature Granulocytes Abs Auto 0.03 K/uL (0.00-0.30); Immature Granulocytes Pct Auto 0.5 %; Lymphocytes Percent Auto 18.4 % (20-44); Mean Corpuscular HGB Conc 32 gm/dL (32-36); Mean Corpuscular Hemoglobin 33 pg (26-34); Mean Corpuscular Volume 102 fL (80-100); Monocytes Percent Auto 9.4 % (0.0-11.0); Neutrophils Absolute Auto 4.63 K/uL (1.7-7.0); Neutrophils Percent Auto 69.8 % (42.0-72.0); Platelet Count* 145 K/uL (140-440); RDW Coefficient of Variation % 14.2 % (11.5-15.5); Red Blood Count 3.56 m/uL (4.30-5.90); White Blood Count* 6.62 K/uL (4.50-11.00)
[2024-11-17 11:24] LABS: Slide Review Reflex No
[2024-11-17 11:32] LABS: Chloride* 103 mmol/L (96-114)
[2024-11-17 11:33] LABS: Albumin* 4.4 g/dL (3.3-5.0); Potassium* 4.5 mmol/L (3.6-5.1); Sodium* 139 mmol/L (135-149)
[2024-11-17 11:35] LABS: Alanine Aminotransferase* 23 U/L (4-50); Alkaline Phosphatase* 45 U/L (40-150); Anion Gap 9 mEq/L (7-15); Aspartate Amino Transferase* 39 U/L (12-35); Bilirubin Total* 0.7 mg/dL (0.1-1.5); Blood Urea Nitrogen* 19 mg/dL (7-30); Carbon Dioxide* 27 mmol/L (20-32); Creatinine* 1.3 mg/dL (0.5-1.5); Est. Creatinine Clearance* 44.27; Estimated Glomerular Filt Rate 59 ml/min
[2024-11-17 11:36] LABS: Calcium* 9.9 mg/dL (8.4-10.6); Glucose* 93 mg/dL (60-115)
[2024-11-17 12:44] LABS: Thyroid Stimulating Hormone* 0.815 uIU/mL (0.270-4.20)
--- OUTSIDE RECORDS SUMMARY | 2024-11-19 07:00 | XMS_ITS | Referral Summary ---
Author Organization [place] Address [address] [place] [address] Care Team Providers Care Christian Counselor Name Role Phone Jez Burnham MD Primary Care Provider [phone] Allergies No known active allergies Medications LIPITOR 20 MG OR TABS one daily 30 5 3 Active TENORMIN 100 MG OR TABS 1 TABLET DAILY 30 0 3 Active NITROSTAT 0.4 MG SL SUBL one tablet under tongue as needed chest pain. may repeat every 5 minutes x 2. Call 911 if no relief 30 5 3 Active ASPIRIN EC 325 MG OR TBEC one daily 100 3 3 Active MULTIVITAMINS OR TABS one by mouth once daily 100 5 3 Active diclofenac (VOLTAREN) 75 MG EC tablet Take 1 tablet (75 mg) by mouth 2 times daily as needed 60 tablet 1 3 Active Additional Information Patient not taking.Reported on 10/23/2021 Aspirin Buf,CaCarb-MgCa rb-MgO, 81 MG TABS Take 81 mg by mouth Active cholecalciferol (VITAMIN D3) 10 mcg (400 units) TABS tablet Daily 1 Active lisinopril (ZESTRIL) 2.5 MG tablet 0 Active metoprolol succinate ER (TOPROL-XL) 25 MG 24 hr tablet 0 Active omeprazole (PRILOSEC) [address] capsule Take 20 mg by mouth Active atorvastatin (LIPITOR) 40 MG tablet 1 Active omega 3 1000 MG CAPS Active [...] Recorded Sex Assigned at Not on file Legal Sex Male 4:38 AM BIG 6 DEALER Gender Identity Not on file Sexual Orientation Not on file Last Filed Vital Signs Vital Sign Reading Time Taken Comments Blood Pressure 131/80 10/23/2021 3:00 PM BIG 6 DEALER Pulse 97 10/23/2021 3:00 PM BIG 6 DEALER Temperature - - Respiratory Rate 18 10/23/2021 3:00 PM BIG 6 DEALER Oxygen Saturation 98% 10/23/2021 3:00 PM BIG 6 DEALER Inhaled Oxygen Concentration - - Weight 68.5 kg (151 lb) 10/23/2021 3:00 PM BIG 6 DEALER Height 167.6 cm (5' 6) 10/23/2021 3:00 PM BIG 6 DEALER Body Mass Index 24.37 10/23/2021 3:00 PM BIG 6 DEALER Plan of Treatment Not on file Insurance MEDICARE [facility] MEDICARE SUPPLEMENT Care Teams Christian Counselor Relationship Specialty Start Date End Date Jez Burnham MD PCP - General Family Medicine 10/09/21
--- OUTSIDE RECORDS SUMMARY | 2024-11-19 07:00 | XMS_ITS | Referral Summary ---
Author Organization [facility] Address [address] [place] [address] Care Team Providers Care Academic Support Assistant Name Role Phone Elsewhere, Pcp Primary Care Provider Unavailabl e Source Comments Patient records contain information from all sites at [facility]. For routine questions regarding patient records, call [phone] during business hours, M-F 8:00 AM - 5:00 PM Central Time. Record requests for emergency care only can be directed to [phone] at any time.[facility] Allergies No known active allergies Medications aspirin [...] aerosol inhaler as needed. 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 EQUIPMENT SALES MANAGER Gender Identity Male 07/11/2024 2:15 PM CDT Sexual Orientation Straight 07/11/2024 2: 15 PM CDT Last Filed Vital Signs Vital Sign Reading Time Taken Comments Blood Pressure 171/91 07/10/2024 3:33 PM CDT Pulse 94 07/10/2024 3:33 PM CDT Temperature 36.6 C (97.9 F) 07/10/2024 3:14 PM CDT Respiratory Rate 20 07/10/2024 3:33 PM CDT Oxygen Saturation 98% 07/10/2024 3:33 PM CDT Inhaled Oxygen Concentration - - Weight 64.4 kg (141 lb 15.6 oz) 07/10/2024 1:33 PM CDT Height 162.6 cm (5' 4.02) 07/10/2024 1:33 PM CD T Body Mass Index 24.36 07/10/2024 1:33 PM CDT Plan of Treatment Not on file Procedures Procedure Name Priority Date/Time Associated Diagnosis Comments OUTSIDE MR NEURO Routine 09/03/2024 10:3 0 AM CDT OUTSIDE NM PET Routine 08/27/2024 3:00 PM CDT COLONOSCOPY RESTRICTED Routine 07/10/2024 2:30 PM CDT 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 Colitis Collagenous HCV AB SCRN W/REFLEX TO HCV PCR, S Routine 07/07/2024 2:56 PM CDT 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 Colitis Collagenous ELECTROLYTE (CHEM 4) PANEL, S/P Routine 08/06/2016 4:23 AM CDT US ABDOMEN COMPLETE WITH LIVER DOPPLER Routine 08/04/2016 8:08 AM CDT from Last 3 Months or Most Recently Relevant to Health Maintenance Results * MR head/brain wo/w con-Outside MR Neuro (09/03/2024 10:30 AM CDT) Narrative [facility] - 09/18/2024 9:40 AM CDT This order has been created and auto-finalized to support the import of outside images. If available, original interpretation can be found on the Media Tab in Chart Review, in Document Viewer, as an image in QREADS or as an Addendum. If a re-interpretation or overread is required please follow defined workflow. us Provider Not In System IMG MRI PROCEDURES Final Result Performing Organization Address City/[facility]/ZIP Co de Phone Number [facility] NA * PET skull to mid thigh-Outside NM Pet (08/27/2024 3:00 PM CDT) Narrative [facility] - 09/18/2024 9:44 AM CDT This order has been created and auto-finalized to support the import of outside images. If available, original interpretation can be found on the Media Tab in Chart Review, in Document Viewer, as an image in QREADS or as an Addendum. If a re-interpretation or overread is required please follow defined workflow. us Provider Not In System IMG NM PROCEDURES Final R esult [facility] NA * HCV Ab Scrn w/Reflex to HCV PCR, Serum (07/07/2024 2:56 PM CDT) HCV Ab Screen, S Negative Negative 07/07/2024 9:11 PM CDT [facility] Comment: Consumption of high-dose biotin supplement within 12 hours of blood collection for this test can cause false-negative results. Blood (Blood, Venous) 07/07/2024 2:56 PM CDT 07/07/2024 7:46 PM CDT Sergei Cota, M.S. LAB MICROBIOLOGY - B LOOD ORDERABLES Final Result Performing Organization Address City/[facility]/ZIP Co de Phone Number [facility] [address] [place] [address] [facility] [address] [place] [address] * (ABNORMAL) Electrolyte (Chem 4) Panel (08/06/2016 4:23 AM CDT) [facility] Sodium, S 140 135 - 145 MMOL/L [facility] Potassium, S 4.1 3.6 - 5.2 MMOL/L [facility] eGFR-Black/Afri can Haitian >60 >60 ML/MIN/BSA [facility] BUN (Blood Urea Nitrogen), S 18 8 - 24 MG/DL [facility] Chloride, S 99 98 - 107 MMOL/L [facility] HX Bicarbonate, P/S 27 22 - 29 MMOL/L [facility] Creatinine 1.3 0.8 - 1.3 MG/DL [facility] eGFR Non-Black/Afric an Haitian 56(L) >60 ML/MIN/BSA [facility] Anion Gap 14 7 - 15 [facility] Glucose, S 95 70 - 140 MG/DL [facility] 08/06/2016 4:23 AM CDT 08/06/2016 4:23 AM CDT Urbano Ibarra M.D., Ph.D. LAB BLOOD ADD-ON Final R esult [facility] [address] [address] * US Abdomen and Abdomen Doppler (08/04/2016 8:08 AM CDT) Anatomical Region Laterality Modality Abdomen N/A Ultrasound 08/04/2016 8:08 AM CDT Impressions 08/04/2016 8:18 AM CDT Indeterminate hepatic mass FINDINGS: Liver: Indeterminate 2.0 cm hepatic mass in segment IVb, corresponds to the mass seen on the CT. This is not focal fat nor is it a typical benign cavernous hemangioma. MRI or ultrasound-guided biopsy could be considered. Slightly abnormal configuration to the right hepatic lobe, likely due to remote parenchymal insult. Spleen: Normal. Spleen length: 9.5 cm. Doppler: Splenic, portal, and hepatic veins are patent with antegrade flow. The main hepatic artery is patent with antegrade flow. IVC: Normal where seen. Gallbladder: Cholelithiasis. Mildly contracted with associated mild nonspecific gallbladder wall thickening. Negative sonographic Lan's sign.. Intrahepatic ducts: Not dilated. Common duct: Not dilated. Pancreas: Complex 4.2 x 1.8 x 4.0 cm mixed solid and cystic mass adjacent the tail the pancreas and splenic hilum, seen on yesterday's CT. If there is a history of pancreatitis, this probably represents an old peripancreatic fluid collection. Hematoma remains a consideration. Given the indeterminate hepatic mass, a pancreatic neoplasm remains a very remote consideration. Right kidney: No hydronephrosis. Renal length: 10.3 cm. Left kidney: No hydronephrosis. Renal length: 10.7 cm. Aorta: Normal caliber. Ascites: Trace amount. Bilateral pleural effusions. Electronically signed by: Tasneem Brand M.D. [id number] 04-Aug-2016 08:18 Narrative 08/04/2016 8:18 AM CDT 04-Aug-2016 08:08:00 Exam: US Abd Cmpl with Doppler Lmtd Indications: [id number] ABDOMEN WITH DOPPLER/liver disease alcoholic/pt w/encephalopathy and heavy alcohol use w/2 cm liver nodule and elevated liver studies. ORIGINAL REPORT - 04-Aug-2016 08:18:00 EXAM: US Abdomen Complete with limited color and spectral Doppler analysis COMPARISON: CT 08/03/2016 Procedure Note Felipe Brand M.D. - 02/13/2018 04-Aug-2016 08:08:00 Exam: US Abd Cmpl with Doppler Lmtd Indications: [id number]/US ABDOMEN WITH DOPPLER/liver diseasealcoholic/pt w/encephalopathy and heavy [...] effusions. Electronically signed by: Tasneem Brand M.D. [id number] 04-Aug-2016 08:18 Jacqueline Tineo M.D. [facility] US PROCEDURES Final Re sult from Last 3 Months or Most Recently Relevant to Health Maintenance Insurance MEDICARE [facility] Care Teams Academic Support Assistant Relationship Specialty Start Date End Date Elsewhere, Pcp PCP - General 12/07/19
--- OUTSIDE RECORDS SUMMARY | 2024-11-19 07:00 | XMS_ITS ---
Author Organization [facility] Address [address] [place] [address] Care Team Providers Care Foreign Language Teacher Name Role Phone Unavailable Unavailable Unavailable Surgery Details Not on file Complications Check Surgery Details section. Procedure Estimated Blood Loss Check Surgery Details section. Procedure Findings Check Surgery Details section. Procedure Specimens Taken Check Surgery Details section.
--- OUTSIDE RECORDS SUMMARY | 2024-11-19 07:00 | XMS_ITS | Clinical Summary ---
Author Organization [facility] Address [place], [place] [address] Care Team Providers Care Financial Wellness Coach Name Role Phone Andrei Burnham MD Primary Care Provider [phone] Allergies No known active allergies Medications atorvastatin (LIPITOR) 40 mg tablet Take 40 [...] 90 mmHg.). 1 Bottle 1 05/31/2013 Active Cholecalciferol , Vitamin D3, (VITAMIN D-3) 400 unit capsule Take by mouth once daily. Active folic acid 1 mg tabletIndicatio ns:Macrocytic anemia Take 1 tablet by mouth once daily. 30 tablet 05/17/2015 11:11 AM CDT 05/17/2015 Active omeprazole (PRILOSEC) 20 mg Delayed-Release capsule Take 20 mg by mouth once daily before a meal. Active lisinopriL (PRINIVIL; ZESTRIL) 2.5 mg tablet 03/14/2020 Active metoprolol succinate (TOPROL XL) 25 mg Sustained-Relea se tablet 03/14/2020 Active amLODIPine (NORVASC) 5 mg tabletIndicatio ns:HTN (hypertension) Take 1 tablet by mouth once [...] at Not on file Legal Sex Male 5:24 AM COLLABORATING SUPERVISING PHYSICIAN Gender Identity Not on file Sexual Orientation Not on file Obstetrics History Last Filed Vital Signs Vital Sign Reading Time Taken Comments Blood Pressure 140/78 05/23/2023 1:15 PM CDT Pulse 79 05/23/2023 1:15 PM CDT Temperature 36.8 C (98.2 F) 05/23/2023 1:15 PM CDT Respiratory Rate 16 05/23/2023 1:15 PM CDT [...] Additional history exists Pneumococcal series for age 50+ (1 of 1 - PCV) 2019 COVID-19 vaccine series (2023- season) 2024 12/05/2021, 02/22/2021, 01/25/2021 Influenza for age 65+ 07/19/2024 RSV vaccine for adults or (1 - 1-dose 75+ series) 2029 Medical Devices Implanted Type Area Balance Bridge Inspector Device Identifier Shelf Expiration Date Model / Serial / Lot Patch Vasc 0.8x8cm Biological Peripatch - [id number] Implanted:Qty: 1 on 10/07/2013 by Devin Cardoza MD at [facility] Left: Carotid Artery [employer] 06/17/2016 0.8P8# / / [id number] Procedures Procedure Name Priority Date/Time Associated Diagnosis Comments LIPID PANEL Early AM 05/30/2013 5:25 AM CDT from Last 3 Months or Most Recently Relevant to Health Maintenance Results * Lipid Panel - In AM (05/30/2013 5:25 AM CDT) CHOLESTEROL,TOTA L 112 100 - 199 mg/dL [facility] TRIGLYCERIDES 126 <150 mg/dL [facility] HDL CHOLESTEROL 49 >40 mg/dL [facility] CHOL/HDL RATIO 2.[address] [facility] NON-HDL CHOLESTEROL 63 Undefined mg/dL [facility] LDL CHOLESTEROL 38 <131 mg/dL [facility] PATIENT STATUS Fasting [facility] Blood specimen (specimen) BLOOD SPECIMEN / Unknown 05/30/2013 5:25 AM CDT 05/29/2013 11:10 PM CDT Pranav Bennett MD CHEMISTRY F inal Result [facility] INTERNAL ZIP [address] [address] [place] [address] from Last 3 Months or Most Recently Relevant to Health Maintenance Insurance [facility] MEDICARE PB ONLY MEDICARE PART B HB ONLY MEDICARE PART A HB ONLY * Guarantor: DIOGENES CASTREJON Account Type Relation to Patient Date of Phone Billing Address Workers Comp 1955 ([place]) [id number] [place] [id number] WORKERS COMP Advance Directives * Full Code (Latest Code [...] 11:10 PM 05/31/2013 3:24 PM Care Teams Financial Wellness Coach Relationship Specialty Start Date End Date Andrei Burnham MD PCP - General Family Practice 06/08/13
--- OUTSIDE RECORDS SUMMARY | 2024-11-19 07:00 | XMS_ITS | Clinical Summary ---
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 METER SHOP Gender Identity Not on file Sexual Orientation Not on file Last Filed Vital Signs Vital Sign Reading Time Taken Comments Blood Pressure 131/80 10/23/2021 3:00 PM SUPERVISOR METER SHOP Pulse 97 10/23/2021 3:00 PM SUPERVISOR METER SHOP Temperature - - Respiratory Rate 18 10/23/2021 3:00 PM SUPERVISOR METER SHOP Oxygen Saturation 98% 10/23/2021 3:00 PM SUPERVISOR METER SHOP Inhaled Oxygen Concentration - - Weight 68.5 kg (151 lb) 10/23/2021 3:00 PM SUPERVISOR METER SHOP Height 167.6 cm (5' 6) 10/23/2021 3:00 PM SUPERVISOR METER SHOP Body Mass Index 24.37 10/23/2021 3:00 PM SUPERVISOR METER SHOP Plan of Treatment Not on file Insurance MEDICARE [facility] MEDICARE SUPPLEMENT Care Teams Ship Cleaner Relationship Specialty Start Date End Date Jez Burnham MD PCP - General Family Medicine 10/09/21
--- OUTSIDE RECORDS SUMMARY | 2024-11-19 07:00 | XMS_ITS | Clinical Summary ---
Author Organization [facility] Address [address] [place] [address] Care Team Providers Care Electrical Test Technician Name Role Phone Elsewhere, Pcp Primary Care Provider Unavailabl e Source Comments Patient records contain information from all sites at [facility]. For routine questions regarding patient records, call [phone] during business hours, M-F 8:00 AM - 5:00 PM Central Time. Record requests for emergency care only can be directed to [phone] at any time.[facility] Allergies No known active allergies Medications aspirin [...] aerosol inhaler as needed. 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 Co de Phone Number IIMS NA * PET skull to mid thigh-Outside [place] Pet (08/27/2024 3:00 PM CDT) Narrative [facility] - 09/18/2024 9:44 AM CDT This order [...] S Negative Negative 07/07/2024 9:11 PM CDT [facility] Comment: Consumption of high-dose biotin supplement within 12 hours of blood collection for this test can cause false-negative results. Blood (Blood, Venous) 07/07/2024 2:56 PM CDT 07/07/2024 7:46 PM CDT us Sergei Cota, M.S. LAB MICROBIOLOGY - B LOOD ORDERABLES Final Result Performing Organization Address [facility] Co de Phone Number [facility] [address] [place] [address] [facility] [address] [place] [address] * (ABNORMAL) Electrolyte (Chem 4) Panel (08/06/2016 4:23 AM CDT) Sodium, S 140 135 - 145 MMOL/L [facility] Potassium, S 4.1 3.6 - 5.2 MMOL/L [facility] eGFR-Black/Afri can Armenian >60 >60 ML/MIN/BSA [facility] BUN (Blood Urea Nitrogen), S 18 8 - 24 MG/DL [facility] Chloride, S 99 98 - 107 MMOL/L [facility] HX Bicarbonate, P/S 27 22 - 29 MMOL/L [facility] Creatinine 1.3 0.8 - 1.3 MG/DL [facility] eGFR Non-Black/Afric an Armenian 56(L) >60 ML/MIN/BSA [facility] Anion Gap 14 7 - 15 [facility] Glucose, S 95 70 - 140 MG/DL [facility] 08/06/2016 4:23 AM CDT 08/06/2016 4:23 AM CDT us Urbano Ibarra M.D., Ph.D. LAB BLOOD ADD-ON Final R esult Performing Organization Address City/[facility]/ZIP Co de Phone Number [facility] [address] * US Abdomen and Abdomen Doppler [...] effusions. Electronically signed by: Tasneem Brand M.D. [id number] 04-Aug-2016 08:18 Narrative 08/04/2016 8:18 AM CDT 04-Aug-2016 08:08:00 Exam: US Abd Cmpl with Doppler Lmtd Indications: [id number] ABDOMEN WITH DOPPLER/liver disease alcoholic/pt w/encephalopathy and heavy alcohol use w/2 cm liver nodule and elevated liver studies. ORIGINAL REPORT - 04-Aug-2016 08:18:00 EXAM: US Abdomen Complete with limited color and spectral Doppler analysis COMPARISON: CT 08/03/2016 Procedure Note Felipe Brand M.D. - 02/13/2018 04-Aug-2016 08:08:00 Exam: US Abd Cmpl with Doppler Lmtd Indications: [id number]/US ABDOMEN WITH DOPPLER/liver diseasealcoholic/pt w/encephalopathy and heavy [...] effusions. Electronically signed by: Tasneem Brand M.D. [id number] 04-Aug-2016 08:18 Jacqueline Tineo M.D. [facility] US PROCEDURES Final Re sult from Last 3 Months or Most Recently Relevant to Health Maintenance Insurance MEDICARE [facility] Care Teams Electrical Test Technician Relationship Specialty Start Date End Date Elsewhere, Pcp PCP - General 12/07/19
--- OUTSIDE RECORDS SUMMARY | 2024-11-19 07:00 | XMS_ITS ---
Author Organization [facility] Address [address] [place] [address] Care Team Providers Care Loom Changeover Operator Name Role Phone Elsewhere, Pcp Primary [...] Treated Prescribed Fraction Dose Prescribed Total Dose [id number] 09/27/2023 11 300 cGy 3,000 cGy Reference Point Last Treated On Elapsed Days Session Dose Total Dose [id number] 09/27/2023 11 300 cGy 3,000 cGy
--- OUTSIDE RECORDS SUMMARY | 2024-11-19 07:00 | XMS_ITS | Continuity of Care Document ---
Author Name [facility] User [email or web address] llowed Address Unknown Organization Unknown Address Unknown Procedures FILTER APPLIED:Only known Procedures with Onset Date within the last 5 years Procedure Date Procedure Provider Additiona l Information Status MRI BRAIN STEM W/O W/DYE (49900) Completed OFF/OP EST MARCH X REQ PHY/QHP (48851) Completed PET IMAGE W/CT SKULL-THIGH (73905) Completed PET IMAGE W/CT SKULL-THIGH (69710) Completed ASSAY OF MAGNESIUM (69872) Completed VITAMIN B-12 (67116) Com pleted ASSAY OF PSA TOTAL (06925) Completed LIPID PANEL (19764) Comp leted OFFICE O/P EST SF 10 MIN (91347) Completed OFFICE O/P EST MOD 30 MIN (18722) Completed PET IMAGE W/CT SKULL-THIGH (49551) Completed MRI BRAIN STEM W/O W/DYE (22709) Completed CHEMO IV INFUSION 1 HR (26341) Completed ASSAY THYROID STIM HORMONE (98083) Completed COMPREHEN METABOLIC PANEL (78108) Completed DRAW BLOOD OFF VENOUS DEVICE (02933) Completed COMPLETE CBC W/AUTO DIFF WBC (45317) Completed CT THORAX DX C+ (42980) Completed OFFICE O/P EST MOD 30 MIN (00794) Completed OFFICE O/P EST LOW 20 MIN (66780) Completed CHEMO IV INFUSION ADDL HR (03908) Completed HYDRATION IV INFUSION INIT (06413) Completed TRANSFUSION BLD/BLD COMPNT (59053) Completed THER/PROPH/DIAG IV INF ADDON (05631) Completed THER/PROPH/DIAG IV INF INIT (85971) Completed BLOOD TYPING SEROLOGIC RH(D) (78642) Completed BLOOD TYPING SEROLOGIC ABO (15027) Completed RBC ANTIBODY SCREEN (06416) Completed ASSAY OF MAGNESIUM (59597) Completed METABOLIC PANEL TOTAL CA (54249) Completed DRAW BLOOD OFF VENOUS DEVICE (28116) Completed COMPATIBILITY TEST ANTIGLOB (84225) Completed MEDICAL NUTRITION INDIV IN (27787) Completed HYDRATE IV INFUSION ADD-ON (71986) Completed OFFICE O/P EST HI 40 MIN (03458) Completed OFFICE O/P EST SF 10 MIN (27457) Completed CHEMO IV INFUS EACH ADDL SEQ (26980) Completed CHEMO IV INFUSION 1 HR (57160) Completed TX/PRO/DX INJ SAME DRUG FILM PROCESSING UTILITY WORKER (88502) Completed ASSAY TRIIODOTHYRONINE (T3) (34680) Completed OFF/OP EST MAY X REQ PHY/QHP (35849) Completed ASSAY OF FREE THYROXINE (98506) Completed TOTAL CORTISOL (09145) C ompleted ASSAY THYROID STIM HORMONE (28272) Completed OFFICE O/P NEW HI 60 MIN (87292) Completed OFFICE O/P NEW LOW 30 MIN (33438) Completed COMPLETE CBC W/AUTO DIFF WBC (47015) Completed COMPREHEN METABOLIC PANEL (06268) Completed MRI BRAIN STEM W/O W/DYE (66854) Completed ROUTINE VENIPUNCTURE (37054) Completed Encounters FILTER APPLIED:Only known Encounters with Admission Date within the last 5 years Encounter Location Admission Discharge Billing Code Consultant [facility] Maci madrigal
[2024-11-19 10:00] VITALS: BP 149/90; PULSE 95; RESP 16; TEMP 36.4; O2SAT 97
[2024-11-19] MEDS: SODIUM CHLORIDE 0.9 % (FLUSH) 10 ML SYRINGE IVF ×2 (10:33→11:11)
[2024-11-19] MEDS: HEPARIN 500 UNIT/5 ML SYRINGE IVF (11:11)
== END 2024-12-06 23:59 | disposition home or self-care (01) ==
LOC: CCIC 10:00
PROVIDERS: Clinical Nurse Specialist; PCP Family Medicine; Referring Provider Family Medicine; Visit Provider Internal Medicine Hematology & Oncology
DX: Z51.12 Encounter for antineoplastic immunotherapy (principal); C34.11 Malignant neoplasm of upper lobe, right bronchus or lung; R94.6 Abnormal results of thyroid function studies
CPT/HCPCS: 36415; 36591; 78815; 80053; 82270; 82607; 82746; 83540; 83550; 83993; 84443; 85025; 85045; 87045; 87046; 87077; 87427; 87493; 96365; 96372; 96413; 99211; 99214; 99215; G0463; A9552; J1642; J2919; J3420; J7050; J9022

== ENCOUNTER 2024-12-15 12:30 | Inpatient (IN) | payer MEDICARE, BC, SELFPAY ==
[2024-12-15] VITALS (13 sets, daily range): BP systolic 76–115; BP diastolic 53–83; PULSE 77–93; RESP 16–18; TEMP 35.8–36.6; O2SAT 96–99; BMI 20.8
--- NOTE | 2024-12-15 13:41 | PM.IMHP1 ---
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 He related a history over the last week of frequent diarrheal stools, vomiting, no appetite, weakness. No significant abdominal cramping, pain. He relates chills but no noted fever. Vital signs upon presentation showed that he was hypotensive and tachycardic. The RN discussed with the treating oncology team, ER and myself hospitalist and we decided on a direct admission for acute gastroenteritis, acute renal failure, dehydration, hypokalemia. Terence lives alone, retired. He was diagnosed with small cell lung cancer in 2022. 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 In June of 2024 he underwent a fecal transplant at the [facility]. He states within three days he felt better. He also takes medications for hypertension, hyperlipidemia and BPH and has known CAD. He is s/p PTCA and AMI. Last intervention was 2012. He quit smoking 8 years ago (2015) CODE STATUS: Full code EMERGENCY CONTACT PLAN: Sallie Jon Rel To Pat Daughter Cell I've updated the PFSH, medications and allergies in the Expanse tabs. INVESTIGATIONS: LABS/MICRO/ECG/IMAGING Vitals: BP was soft 80's systolic upon arrival, but has been >100 since. not tachycardiac. room air saturations are normal. CBC reflects an elevated white blood cell count at 15.43. 80% neutrophils. Normal but likely concentrated hemoglobin of 13.9 and platelets of 302. He has an anion gap your metabolic acidosis in the setting of acute renal failure. His pH is 7.193. Bicarb 10. Sodium 125 Potassium 2.9, magnesium 2.2 Bicarb 5 Anion gap 29 BUN creatinine 90/6.1 CRP 1.7 Procalcitonin 2.63 TSH normal Blood culture x2, urine culture, stool culture are all ordered Stool PCR and C diff are also ordered CXR: No acute cardiopulmonary process. No focal consolidation seen to suggest pneumonia Abdomen Xray: No bowel obstruction. Unremarkable abdominal radiographs REVIEW OF SYSTEMS: 12-point ROS completed with patient and negative unless otherwise stated in HPI or below. PHYSICAL EXAM: CONSTITUTIONAL: He looks better than on paper. coherent, polite, excellent historian. states he already feels better than when he was driving in this morning. GENERAL: Well-developed and above ideal body weight, in no respiratory distress. VITAL SIGNS: Vitals: BP was soft 80's systolic upon arrival, but has been >100 since. not tachycardiac. room air saturations are normal. HEENT: Sclerae are anicteric. No petechiae. CARDIAC: rhythm is regular. There is no S3 or rub. No harsh murmurs. Extremities show trace edema with symmetrical pulses. PULM: good air entry with no wheeze. ABDOMEN: soft. nontender. NEURO: Speech is fluent. A brief neurologic exam is negative. SKIN: No rashes, petechiae, concerning changes PSYCHIATRIC: Euthymic. ADMIT TO MEDSURG: CCU DVT: Lovenox GI: PO intake Time spent: Today I spent 75 minutes seeing the patient, discussing the patient with ER staff, reviewing Expanse and EPIC notes/diagnostics, discussing the care plan with our care time that includes social work, PT/OT, pharmacy, RT, long-term and documenting my impressions and plan in the medical record. MEDICAL NECESSITY FOR HOSPITALIZATION Anticipated midnights in the hospital: 2+ Admitting diagnosis: Acute renal failure, metabolic acidosis, sepsis, gastroenteritis, immunosuppression related to immunotherapy for small cell carcinoma Risk of morbidity and mortality: high Acuity is characterized as high and reflected in: Immunosuppression in the setting of an acute infection. Metabolic acidosis, severe hypokalemia, acute renal failure This patient will require hospital services as outlined in the assessment and plan in order to stabilize and be safely discharged to a lower level of care. Because of the risk and acuity as described above, this patient cannot be managed at a lower level of care. LENGTH OF STAY: 2+ IP ? Anticipated LOS>2 midnights due to acuity of clinical presentation requiring inpatient level of care, more specifically CCU status PFSH PFSH Medical History Collagenous colitis ?K52.831 - Collagenous colitis (ICD-10) BPH w/o urinary obs/LUTS ?N40.0 - Benign prostatic hyperplasia without lower urinary tract symptoms (ICD-10) Scoliosis ?M41.9 - Scoliosis, unspecified (ICD-10) Tear of right rotator cuff ?M75.101 - Unspecified rotator cuff tear or rupture of right shoulder, not specified as traumatic (ICD-10) Osteoarthritis of both shoulders ?M19.011 - Primary osteoarthritis, right shoulder (ICD-10) ?M19.012 - Primary osteoarthritis, left shoulder (ICD-10) C. difficile diarrhea ?A04.72 - Enterocolitis due to Clostridium difficile, not specified as recurrent (ICD-10) Excessive oral secretions ?R68.89 - Other general symptoms and signs (ICD-10) Tobacco use (02/27/12) ?Z72.0 - Tobacco use (ICD-10) Health care directive on file ?Z78.9 - Other specified health status (ICD-10) Surgical History S/P carotid endarterectomy ?Z98.890 - Other specified postprocedural states (ICD-10) History of vasectomy (01/10/11) ?Z98.52 - Vasectomy status (ICD-10) History of coronary artery stent placement (06/03/13) ?Z95.5 - Presence of coronary angioplasty implant and graft (ICD-10) History of appendectomy (01/10/11) ?Z90.49 - Acquired absence of other specified parts of digestive tract (ICD-10) Social History Smoking Status: Former smoker How often do you have a drink containing alcohol: 2-3 times a week How many standard drinks containing alcohol do you have on a typical day: 1 or 2 How often do you have six or more drinks on one occasion: Never AUDIT-C Alcohol total score: 3 Non-prescribed substance use: denies use Meds Home Medications and Allergies Home Medications ?Medication ?Instructions ?Recorded ?Confirmed ?Type nitroglycerin 0.4 mg sublingual 0.4 mg sublingual Q5M PRN 07/31/22 12/09/24 History tablet aspirin 81 mg tablet,delayed 81 mg PO .TWICE WEEKLY 08/10/22 12/09/24 History release (Adult Aspirin Regimen) bismuth subsalicylate 262 mg 262 mg PO QDAY 10/08/23 12/09/24 History tablet (Pepto-Bismol) tamsulosin 0.4 mg capsule (Flomax) 0.4 mg PO QDAY 02/18/24 12/09/24 History omega 3-dha 200 mg-epa 300 mg-fish 1 cap PO DAILY 03/24/24 12/09/24 History oil 1,000 mg capsule acetaminophen 500 mg tablet 500 mg PO QID PRN 05/13/24 12/09/24 History (Tylenol Extra Strength) acetaminophen 650 mg 1,300 mg PO Q12H 07/15/24 12/09/24 History tablet,extended release (Tylenol Arthritis Pain) omeprazole 20 mg capsule,delayed 20 mg PO QDAY 08/04/24 12/09/24 History release psyllium husk 0.4 gram capsule 0.4 g PO QDAY 12/09/24 12/09/24 History (Daily Fiber) Allergies Allergy/AdvReac Type Severity Reaction Status Date / Time No Known Drug Allergies Allergy Verified 12/09/24 09:52 Assessment and Plan Assessment and plan (1) Severe sepsis: Problem comment: -SIRS with diarrhea, leukocytosis, elevated RR. -MAP and SBP initially low, creat 6+ -will check labs after normal saline resuscitation -blood, urine, stool cultures and stool PCR with CDIFF all pending. Status: Acute (2) Gastroenteritis: Problem comment: -holding on antibiotics for now -pending CDIFF, stool PCR and culture Status: Acute (3) Acute renal failure: Problem comment: -current creat 6.1; baseline is 1.3-1.4. Last check was 1.6 on 12/09, 11/10 it was 1.3 -volume depletion/pre-renal azotemia -fluid resuscitation - 30cc/kg = Status: Acute (4) Hypocalcemia: Problem comment: calcium gluconate Status: Acute (5) Hyperphosphatemia associated with renal failure: Problem comment: normal saline infusion; recheck labs. replace calcium. on telemetry. EKG reviewed. consider transfer for acute dialysis if labs do not improve or patient is more symptomatic. Status: Acute (6) Acute hypokalemia: Problem comment: IV replacement in progress Status: Acute (7) Small cell lung carcinoma: Problem comment: Dx 03/2023. s/p chemo and XRT to various lymph nodes. currently on atezolizumab (no active disease) Status: Acute (8) BPH w/o urinary obs/LUTS: Problem comment: -richards catheter placed; on tamulosin. Status: Acute (9) C. difficile diarrhea: Problem comment: 03/2024, s/p fecal transplant with [facility] in 07/11 -pending test Status: Acute (10) Hypertension: Problem comment: -hold metoprolol and lisinopril Status: Inactive (11) Hyperlipidemia: Problem comment: -hold statin currently Status: Acute (12) Arteriosclerotic cardiovascular disease: Problem comment: s/p stents, 2012, RCA and OM1 -on telemetry; EKG on admission reviewed. Status: Acute (13) Peripheral vascular disease: Problem comment: Previous Carotid endarterectomy, 2012, Ongoing Intermittent claudication, ROSE 0.5 left, 0.7, Right Status: Acute (14) Gastro-esophageal reflux: Problem comment: IV PPI, oral PPI am of 12/16 Status: Acute (15) Anemia: Problem comment: High MCV Status: Acute
[2024-12-15] MEDS: PANTOPRAZOLE SODIUM 40 MG INJ IVP (13:48)
[2024-12-15] MEDS: 0.9 % SODIUM CHLORIDE 1000 ml 1,000 ML IV (13:49)
[2024-12-15 14:00] LABS: Appearance Urine Cloudy (Clear); Bilirubin Urine 2+ (Negative); Blood Urine 3+ (Negative); Color Urine Yellow (Yellow); Glucose Urine Negative (Negative); Ketones Urine Negative (Negative); Leukocyte Esterase Urine Negative (Negative); Nitrite Urine Negative (Negative); Protein Urine 1+ (Negative); Urobilinogen Urine 0.2 (0.2-1.0)
[2024-12-15] MEDS: POTASSIUM CHLORIDE 10 MEQ/100 ML PIGGYBACK 100 MEQ IVPB ×6 (14:12→19:50)
[2024-12-15 14:24] LABS: WBC Urine 0-2 (0-5)
[2024-12-15 14:25] LABS: Amorphous Sediment Urine Few; Coarse Granular Casts Urine Moderate; Squamous Epithelial Cell Urine Moderate (None-Few)
[2024-12-15 14:47] LABS: PCR FLU A Negative PCR FLU A (Negative); PCR FLU B Negative PCR FLU B (Negative); PCR RSV Negative PCR RSV (Negative); SARS PCR* Negative SARS-CoV-2 (Negative)
[2024-12-15] MEDS: 0.9 % SODIUM CH + KCL 20 mEq/L 1,000 ML 150 ML IV ×2 (14:59→23:51)
[2024-12-15] MEDS: CALCIUM GLUC 1,000MG/50 ML 1,000 MG/50 ML BAG 100 MG IVPB (15:23)
[2024-12-15] MEDS: TAMSULOSIN HCL 0.4 MG CAPSULE PO (15:26)
[2024-12-15] MEDS: 0.9 % SODIUM CHLORIDE 1000 ml 1,000 ML 500 ML IV (15:26)
[2024-12-15 15:50] LABS: HCO3 VBG 11 mmol/L (21-28); Ionized Calcium* 1.04 mmol/L (1.11-1.30); PCO2 VBG 28 mmHG (40-50); PO2 VBG 44.5 mmHG (25-47)
[2024-12-15 16:09] LABS: Albumin* 2.9 g/dL (3.3-5.0); Chloride* 99 mmol/L (96-114); Potassium* 3.4 mmol/L (3.6-5.1); Sodium* 125 mmol/L (135-149)
[2024-12-15 16:12] LABS: Anion Gap 19 mEq/L (7-15); Blood Urea Nitrogen* 85 mg/dL (7-30); Calcium* 7.2 mg/dL (8.4-10.6); Glucose* 80 mg/dL (60-115)
[2024-12-15 16:21] LABS: Carbon Dioxide* 7 mmol/L (20-32)
[2024-12-15 16:24] LABS: pH VBG 7.193 (7.32-7.43)
[2024-12-15 18:43] LABS: Creatinine* 4.9 mg/dL (0.5-1.5); Est. Creatinine Clearance* 10.89; Estimated Glomerular Filt Rate 12 ml/min
--- NOTE | 2024-12-15 18:57 | PC.NURSE ---
PATIENT ADMITTED FROM [facility] AT 1300. PATIENT REPORTED N/V/D AND DECREASED APPETITE WITH WEIGHT LOSS FOR AT LEAST THE LAST WEEK. NO BM SINCE ADMISSION. MOELLER PLACED ON ADMISSION WITH 20ML OUTPUT AND URINE SAMPLE SENT. PATIENT GIVEN IVF BOLUSES AND URINE OUTPUT AT 1730 WAS 350ML. BLOOD PRESSURES INITIALLY 110'S/70'S. BP'S DID DECREASED TO 90'S/60'S. ON ADMIT, PATIENT REPORTED FEELING DIZZY AND LIGHTHEADED WHICH RESOLVED FOLLOWING BOLUSES. BP'S DECREASED TO 80'S/50'S. MD UPDATED AND ORTHOSTATIC'S CHECKED AND MD UPDATED. PATIENT ASYMPTOMATIC WITH ACTIVITY. BP AT 1830 WAS 91/64. ORDER TO RECHECK ORTHOSTATIC BP'S AT 2100 WITH NEXT BLOOD DRAW. DENIES N/V AND PAIN. BOWEL SOUNDS ACTIVE AND PASSING GAS. ABDOMEN SOFT AND NONTENDER.
[2024-12-15] MEDS: ENOXAPARIN 40 MG/0.4 ML INJ SUBCUT (21:20)
[2024-12-15] MEDS: SODIUM CHLORIDE 0.9 % (FLUSH) 10 ML SYRINGE 5 ML IVF (21:23)
[2024-12-15 21:32] LABS: Lactate* 0.7 mmol/L (0.5-1.9)
[2024-12-15 21:58] LABS: Albumin* 2.6 g/dL (3.3-5.0); Chloride* 104 mmol/L (96-114); Potassium* 3.9 mmol/L (3.6-5.1); Sodium* 127 mmol/L (135-149)
[2024-12-15 22:01] LABS: Anion Gap 17 mEq/L (7-15); Blood Urea Nitrogen* 75 mg/dL (7-30); Glucose* 73 mg/dL (60-115); Phosphorus* 5.7 mg/dL (2.5-4.5)
[2024-12-15 22:07] LABS: Carbon Dioxide* 6 mmol/L (20-32)
--- NOTE | 2024-12-15 22:26 | PC.NURSE ---
Patient up to the bathroom and had loose stools x2. Stool sample sent to lab. Denies any pain. Othostatic blood pressures taken, see intervention. Denies any dizziness with standing/activity.
[2024-12-16] VITALS (15 sets, daily range): BP systolic 86–119; BP diastolic 55–75; PULSE 86–109; RESP 16–18; TEMP 36–36.4; O2SAT 93–100; BMI 21.2
[2024-12-16] MEDS: 0.9 % SODIUM CH + KCL 20 mEq/L 1,000 ML 150 ML IV (06:33)
[2024-12-16] MEDS: OMEPRAZOLE 20 MG CAPSULE DR 40 MG PO (06:34)
[2024-12-16 06:46] LABS: Hematocrit 29.3 % (37.0-53.0); Hemoglobin* 10.2 gm/dL (13.5-17.5); Mean Corpuscular HGB Conc 35 gm/dL (32-36); Mean Corpuscular Hemoglobin 33 pg (26-34); Mean Corpuscular Volume 95 fL (80-100); Platelet Count* 167 K/uL (140-440); Slide Review Reflex No; White Blood Count* 8.15 K/uL (4.50-11.00)
--- NOTE | 2024-12-16 07:11 | PC.NURSE ---
End of shift summary: Pt has been A&O, afebrile and VSS overnight. No c/o pain, nausea, SOB or dizziness overnight. TELE read SR with PAC?s. Pt is up SBA with his cane for ambulation. He had x2 loose BM?s overnight. Shelton patent & draining, total output: 750 mL. Right chest port accessed and infusing NS w/ 20 K+ @ 150 mL/hr. Labs drawn from port this morning & it flushes with ease with good blood return. Pt is currently on clear liquid diet but reports feeling hungry all night and anticipating breakfast. No edema noted, SCD?s in place. LS are clear, IS encouraged. HRR regular. No open wounds or areas of concern noted. ?Pt was awake all night, reporting he's been sleeping so much during the day and awake at night. Stool was negative for C. Diff, enhanced barrier precautions discontinued but contact precautions ongoing for pending stool cultures.
[2024-12-16 07:14] LABS: Albumin* 2.4 g/dL (3.3-5.0); Chloride* 110 mmol/L (96-114)
[2024-12-16 07:15] LABS: Potassium* 3.8 mmol/L (3.6-5.1); Sodium* 132 mmol/L (135-149)
[2024-12-16 07:17] LABS: Creatinine* 3.8 mg/dL (0.5-1.5); Est. Creatinine Clearance* 14.37; Estimated Glomerular Filt Rate 16 ml/min
[2024-12-16 07:18] LABS: Alanine Aminotransferase* 15 U/L (4-50); Alkaline Phosphatase* 38 U/L (40-150); Anion Gap 15 mEq/L (7-15); Aspartate Amino Transferase* 15 U/L (12-35); Bilirubin Direct* 0.3 mg/dL (0.0-0.5); Bilirubin Total* 0.4 mg/dL (0.1-1.5); Blood Urea Nitrogen* 65 mg/dL (7-30); Calcium* 7.3 mg/dL (8.4-10.6); Glucose* 68 mg/dL (60-115); Phosphorus* 4.2 mg/dL (2.5-4.5); Total Protein* 4.3 g/dL (6.0-8.3)
[2024-12-16 07:19] LABS: Magnesium* 1.8 mg/dL (1.5-2.6)
[2024-12-16 07:21] LABS: C Reactive Protein* 1.8 mg/dL (0.5-1.0)
[2024-12-16 07:26] LABS: Carbon Dioxide* 7 mmol/L (20-32)
[2024-12-16 07:35] LABS: Procalcitonin* 1.02 ng/mL (<0.50)
[2024-12-16 07:42] LABS: HCO3 VBG 10 mmol/L (21-28); Ionized Calcium* 1.12 mmol/L (1.11-1.30); PCO2 VBG 25 mmHG (40-50); PO2 VBG 68.1 mmHG (25-47)
[2024-12-16 07:44] LABS: pH VBG 7.194 (7.32-7.43)
[2024-12-16] MEDS: TAMSULOSIN HCL 0.4 MG CAPSULE PO (08:26)
[2024-12-16] MEDS: FOLIC ACID 1 MG TABLET PO (08:26)
[2024-12-16] MEDS: THIAMINE 100 MG TABLET PO (08:26)
--- NOTE | 2024-12-16 09:00 | PM.IMPN1 ---
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 s/p chemo and XRT to various lymph nodes. currently on atezolizumab (no active disease), follows with Oncology here/[place] Status: Acute (4) Acute renal failure: Problem details: -admission creatinine of 6.1; baseline is 1.3-1.4 -trending downward (3.8 on 12/16), normal electrolytes -source: likely volume depletion/pre-renal azotemia, possibly also an element of obstruction (known BPH) -fluid resuscitation, richards placed on admission Status: Acute (5) Hypocalcemia: Problem details: -replace and follow Status: Acute (6) Hyperphosphatemia associated with renal failure: Problem details: -normalized 12/16/24 Status: Acute (7) Acute hypokalemia: Problem details: -normalized 12/16/24, continue to follow, replace as needed Status: Acute (8) BPH w/o urinary obs/LUTS: Problem details: -richards catheter placed on admission, continue home dose of Tamsulosin Status: Acute (9) Hypertension: Problem details: -hypotension on admission, holding home doses of metoprolol and lisinopril Status: Inactive (10) Hyperlipidemia: Problem details: -hold statin currently Status: Acute (11) Gastro-esophageal reflux: Problem details: -IV PPI, oral PPI am of 12/16 Status: Acute (12) Anemia: Problem details: -chronic, normocytic to macrocytic, stable Hgb without evidence of acute bleeding Status: Acute (13) Acidosis: Problem details: -presumably 2/2 ARF -continue IVF resuscitation, avoid nephrotoxins -receiving bicarbonate in IVFs, continue to follow Status: Acute Plan - per above (therapies, continue IVFs for dehydration, hypotension, and electrolyte disturbances) - add Cholestyramine for diarrhea - continue to defer antibiotics while cultures pending - move from CCU to floor care today, continue close monitoring of VS, renal function, electrolytes Subjective Date Seen: 12/16/24 Interval history: Terence was admitted to the hospital last night for acute renal failure and acidosis in the setting of acute on chronic diarrhea. Admission creatinine 6.1 --> 3.8 this morning. Potassium remains stable. Diarrhea slowly improving, patient would like to try to eat this morning. C diff negative (history of this 05/2024, status post fecal transplant in 06/2024). Also has a history of collagenous colitis, would prefer to not take budesonide again (systemic side effects). Remains intermittently hypotensive with + orthostatic hypotension, no presyncope. HR 80-100, tolerating IV fluids and po fluids. No concerns for hospitalist team, will be working with therapy teams today. Exam Narrative: Exam Narrative: GEN: Alert and oriented, sitting comfortably in bedside chair and answering questions appropriately HEENT: EOMIs bilaterally, no scleral icterus CV: RRR (HR 90s during my exam) R: LCTA bilaterally without concerning wheezing Ab: Soft and nontender, no obvious masses, tolerates palpation Ext: wwp, no concerning edema, wearing SCDs Skin: No concerning skin lesions or rashes on exposed skin Neuro: No focal deficits on limited neurologic exam Psych: Appropriate Const: Vital Signs, click to edit/add: Vital Signs - 24 hr 12/15/24 13:00 12/15/24 13:15 12/15/24 13:30 Temperature 96.7 F L Pulse Rate Pulse Rate [Apical ] 83 77 80 Pulse Rate [Pulse Oximeter] Pulse Rate [orthos tatic lying] Pulse Rate [orthos tatic sitting] Pulse Rate [orthos tatic standing] Respiratory Rate 18 Blood Pressure [Ri ght Arm] 110/69 110/69 107/83 Blood Pressure [or thostatic lying] Blood Pressure [or thostatic sitting] Blood Pressure [or thostatic standing ] Pulse Oximetry 98 Oxygen Delivery Me thod Room Air 12/15/24 14:00 12/15/24 14:15 12/15/24 15:00 Temperature Pulse Rate 79 Pulse Rate [Apical ] 88 77 Pulse Rate [Pulse Oximeter] Pulse Rate [orthos tatic lying] Pulse Rate [orthos tatic sitting] Pulse Rate [orthos tatic standing] Respiratory Rate Blood Pressure [Ri ght Arm] 115/65 104/69 Blood Pressure [or thostatic lying] Blood Pressure [or thostatic sitting] Blood Pressure [or thostatic standing ] Pulse Oximetry 99 Oxygen Delivery Oh thod Room Air 12/15/24 15:00 12/15/24 16:15 12/15/24 17:46 Temperature 96.5 F L 96.8 F L 96.8 F L Pulse Rate Pulse Rate [Apical ] 79 77 83 Pulse Rate [Pulse Oximeter] Pulse Rate [orthos tatic lying] Pulse Rate [orthos tatic sitting] Pulse Rate [orthos tatic standing] Respiratory Rate 18 18 18 Blood Pressure [Ri ght Arm] 100/66 95/62 95/57 L Blood Pressure [or thostatic lying] Blood Pressure [or thostatic sitting] Blood Pressure [or thostatic standing ] Pulse Oximetry 98 98 [facility] 12/15/24 17:54 12/15/24 18:30 12/15/24 19:00 Temperature 97 F L Pulse Rate Pulse Rate [Apical ] 82 84 Pulse Rate [Pulse Oximeter] Pulse Rate [orthos tatic lying] 86 Pulse Rate [orthos tatic sitting] 89 Pulse Rate [orthos tatic standing] 92 Respiratory Rate 18 16 Blood Pressure [Ri ght Arm] 91/64 93/55 L Blood Pressure [or thostatic lying] 90/57 L Blood Pressure [or thostatic sitting] 85/56 L Blood Pressure [or thostatic standing ] 76/53 L Pulse Oximetry 97 96 Oxygen Delivery Oh thod Room Air Room Air 12/15/24 19:00 12/15/24 19:00 12/15/24 21:00 Temperature 97.8 F Pulse Rate 85 Pulse Rate [Apical ] 84 87 Pulse Rate [Pulse Oximeter] Pulse Rate [orthos tatic lying] Pulse Rate [orthos tatic sitting] Pulse Rate [orthos tatic standing] Respiratory Rate 16 18 Blood Pressure [Ri ght Arm] 97/70 Blood Pressure [or thostatic lying] Blood Pressure [or thostatic sitting] Blood Pressure [or thostatic standing ] Pulse Oximetry 97 [facility] 12/15/24 21:00 12/15/24 23:00 12/15/24 23:00 Temperature Pulse Rate 80 Pulse Rate [Apical ] Pulse Rate [Pulse Oximeter] 91 Pulse Rate [orthos tatic lying] 88 Pulse Rate [orthos tatic sitting] 87 Pulse Rate [orthos tatic standing] 93 Respiratory Rate 18 Blood Pressure [Ri ght Arm] Blood Pressure [or thostatic lying] 89/58 L Blood Pressure [or thostatic sitting] 97/70 Blood Pressure [or thostatic standing ] 96/54 L Pulse Oximetry [facility] 12/15/24 23:00 12/16/24 01:05 12/16/24 03:00 Temperature 97.3 F L 97.4 F L Pulse Rate Pulse Rate [Apical ] Pulse Rate [Pulse Oximeter] 91 86 87 Pulse Rate [orthos tatic lying] Pulse Rate [orthos tatic sitting] Pulse Rate [orthos tatic standing] Respiratory Rate 18 16 16 Blood Pressure [Ri ght Arm] 96/60 88/57 L Blood Pressure [or thostatic lying] Blood Pressure [or thostatic sitting] Blood Pressure [or thostatic standing ] Pulse Oximetry 99 99 Oxygen Delivery [facility] Room Air Room Air 12/16/24 03:00 12/16/24 03:35 12/16/24 05:00 Temperature 97.5 F L 97.3 F L Pulse Rate 87 Pulse Rate [Apical ] Pulse Rate [Pulse Oximeter] 87 87 Pulse Rate [orthos tatic lying] Pulse Rate [orthos tatic sitting] Pulse Rate [orthos tatic standing] Respiratory Rate 16 16 Blood Pressure [Ri ght Arm] 103/64 105/68 Blood Pressure [or thostatic lying] Blood Pressure [or thostatic sitting] Blood Pressure [or thostatic standing ] Pulse Oximetry 99 99 Oxygen Delivery [facility] Room Air Room Air 12/16/24 06:00 12/16/24 07:20 12/16/24 07:30 Temperature 97.2 F L Pulse Rate 90 Pulse Rate [Apical ] 89 Pulse Rate [Pulse Oximeter] 93 Pulse Rate [orthos tatic lying] Pulse Rate [orthos tatic sitting] Pulse Rate [orthos tatic standing] Respiratory Rate 18 Blood Pressure [Ri ght Arm] 119/70 Blood Pressure [or thostatic lying] Blood Pressure [or thostatic sitting] Blood Pressure [or thostatic standing ] Pulse Oximetry 99 Oxygen Delivery Me thod Room Air 12/16/24 08:20 Temperature 96.8 F L Pulse Rate Pulse Rate [Apical ] Pulse Rate [Pulse Oximeter] 100 Pulse Rate [orthos tatic lying] Pulse Rate [orthos tatic sitting] Pulse Rate [orthos tatic standing] Respiratory Rate 16 Blood Pressure [Ri ght Arm] 99/55 L Blood Pressure [or thostatic lying] Blood Pressure [or thostatic sitting] Blood Pressure [or thostatic standing ] Pulse Oximetry 99 Oxygen Delivery Me thod Room Air Labs Labs: Laboratory Results - last 24 hr 12/15/24 12/15/24 12/15/24 13:08 13:23 13:39 WBC RBC Hgb Hct MCV MCH MCHC Plt Count VBG pH VBG pCO2 VBG pO2 VBG HCO3 Sodium Potassium Chloride Carbon Dioxide Anion Gap BUN Creatinine Estimated Creat Clear Estimated GFR Glucose Lactate Calcium Ionized Calcium [place] Phosphorus Magnesium Total Bilirubin Direct Bilirubin AST ALT Alkaline Phosphatase C-Reactive Protein Total Protein Albumin Procalcitonin Urine Color Yellow Urine Appearance Cloudy A Urine pH 5.0 Ur Specific [place] 1.020 Urine Protein 1+ A Urine Glucose (UA) Negative Urine Ketones Negative Urine Blood 3+ A Urine Nitrite Negative Urine Bilirubin 2+ A Urine Urobilinogen 0.2 Ur Leukocyte Esterase Negative Urine RBC 10-25 A Urine WBC 0-2 Ur Squamous Epith Cells Moderate A Amorphous Sediment Few A Urine Bacteria None Coarse Granular Casts Moderate A SARS-CoV-2 (PCR) Negative SARS-CoV-2 Influenza Type A (PCR) Negative PCR FLU A Influenza Type B (PCR) Negative PCR FLU B RSV (PCR) Negative PCR RSV Lab Acknowledgement Test Added 12/15/24 12/15/24 12/15/24 13:40 15:42 21:00 WBC RBC Hgb Hct MCV MCH MCHC Plt Count VBG pH 7.193 L* VBG pCO2 28 L VBG pO2 44.5 VBG HCO3 11 L Sodium 125 L 127 L Potassium 3.4 L 3.9 Chloride 99 104 Carbon Dioxide 7 L* 6 L* Anion Gap 19 H 17 H BUN 85 H 75 H Creatinine 4.9 H Estimated Creat Clear 10.89 Estimated GFR 12 Glucose 80 73 Lactate 0.7 Calcium 7.2 L 7.0 L Ionized Calcium [place] 1.04 L Phosphorus 8.0 H* 5.7 H Magnesium 2.0 Total Bilirubin Direct Bilirubin AST ALT Alkaline Phosphatase C-Reactive Protein Total Protein Albumin 2.9 L 2.6 L Procalcitonin Urine Color Urine Appearance Urine pH Ur Specific [place] Urine Protein Urine Glucose (UA) Urine Ketones Urine Blood Urine Nitrite Urine Bilirubin Urine Urobilinogen Ur Leukocyte Esterase Urine RBC Urine WBC Ur Squamous Epith Cells Amorphous Sediment Urine Bacteria Coarse Granular Casts SARS-CoV-2 (PCR) Influenza Type A (PCR) Influenza Type B (PCR) RSV (PCR) Lab Acknowledgement Test Added 12/16/24 06:30 WBC 8.15 RBC 3.10 L Hgb 10.2 L Hct 29.3 L MCV 95 MCH 33 MCHC 35 Plt Count 167 VBG pH 7.194 L* VBG pCO2 25 L VBG pO2 68.1 H VBG HCO3 10 L Sodium 132 L Potassium 3.8 Chloride 110 Carbon Dioxide 7 L* Anion Gap 15 BUN 65 H Creatinine 3.8 H Estimated Creat Clear 14.37 Estimated GFR 16 Glucose 68 Lactate Calcium 7.3 L Ionized Calcium [place] 1.12 Phosphorus 4.2 Magnesium 1.8 Total Bilirubin 0.4 Direct Bilirubin 0.3 AST 15 ALT 15 Alkaline Phosphatase 38 L C-Reactive Protein 1.8 H Total Protein 4.3 L Albumin 2.4 L Procalcitonin 1.02 H Urine Color Urine Appearance Urine pH Ur Specific [place] Urine Protein Urine Glucose (UA) Urine Ketones Urine Blood Urine Nitrite Urine Bilirubin Urine Urobilinogen Ur Leukocyte Esterase Urine RBC Urine WBC Ur Squamous Epith Cells Amorphous Sediment Urine Bacteria Coarse Granular Casts SARS-CoV-2 (PCR) Influenza Type A (PCR) Influenza Type B (PCR) RSV (PCR) Lab Acknowledgement
[2024-12-16] MEDS: SODIUM CHLORIDE 0.9 % (FLUSH) 10 ML SYRINGE 5 ML IVF (09:11)
[2024-12-16] MEDS: POTASSIUM BICARB 25 MEQ EFFERVESCENT TAB PO ×3 (09:11→20:37)
[2024-12-16 13:08] LABS: Est. Creatinine Clearance* 13.65; Estimated Glomerular Filt Rate 15 ml/min
--- NOTE | 2024-12-16 14:11 | PC.NURSE ---
Shift Summary: Patient pleasant and cooperative. Up with SBA, walker and gait belt. BP still decreases with ambulation however patient remains asymptomatic, denies lightheadedness. Shelton patent, urine appears light yellow and clear. Denies pain. Tolerating regular diet well, denies nausea or abdominal pain. Port accessed with fluids running. Worked with PT/OT today.
[2024-12-16] MEDS: 0.9 % SODIUM CHLORIDE 1000 ml 1,000 ML 125 ML IV (17:17)
[2024-12-16] MEDS: ENOXAPARIN 40 MG/0.4 ML INJ SUBCUT (20:38)
[2024-12-17] VITALS (7 sets, daily range): BP systolic 82–112; BP diastolic 55–72; PULSE 100–109; RESP 16–20; TEMP 35.8–36.4; O2SAT 93–99
[2024-12-17] MEDS: 0.9 % SODIUM CHLORIDE 1000 ml 1,000 ML 125 ML IV ×3 (00:45→18:35)
[2024-12-17 06:20] LABS: HCO3 VBG 16 mmol/L (21-28); Ionized Calcium* 1.09 mmol/L (1.11-1.30); PCO2 VBG 33 mmHG (40-50); PO2 VBG 41.9 mmHG (25-47); pH VBG 7.296 (7.32-7.43)
[2024-12-17 06:24] LABS: Hematocrit 30.1 % (37.0-53.0); Hemoglobin* 10.5 gm/dL (13.5-17.5); Mean Corpuscular HGB Conc 35 gm/dL (32-36); Mean Corpuscular Hemoglobin 33 pg (26-34); Mean Corpuscular Volume 95 fL (80-100); Platelet Count* 169 K/uL (140-440); Red Blood Count 3.18 m/uL (4.30-5.90); White Blood Count* 7.07 K/uL (4.50-11.00)
[2024-12-17 06:25] LABS: Slide Review Reflex No
--- NOTE | 2024-12-17 06:31 | PC.NURSE ---
Shift note: Pt is alert and oriented. Continue to have the diarrhea. About 3x this shift. SBA in room. No fever recorded.
[2024-12-17 06:40] LABS: Albumin* 2.7 g/dL (3.3-5.0); Chloride* 108 mmol/L (96-114)
[2024-12-17 06:41] LABS: Potassium* 3.1 mmol/L (3.6-5.1); Sodium* 132 mmol/L (135-149)
[2024-12-17 06:43] LABS: Creatinine* 1.9 mg/dL (0.5-1.5); Est. Creatinine Clearance* 30.29; Estimated Glomerular Filt Rate 37 ml/min
[2024-12-17 06:44] LABS: Alanine Aminotransferase* 20 U/L (4-50); Alkaline Phosphatase* 41 U/L (40-150); Anion Gap 10 mEq/L (7-15); Aspartate Amino Transferase* 23 U/L (12-35); Bilirubin Direct* 0.3 mg/dL (0.0-0.5); Bilirubin Total* 0.5 mg/dL (0.1-1.5); Blood Urea Nitrogen* 42 mg/dL (7-30); Carbon Dioxide* 14 mmol/L (20-32); Glucose* 92 mg/dL (60-115); Phosphorus* 2.3 mg/dL (2.5-4.5); Total Protein* 4.8 g/dL (6.0-8.3)
[2024-12-17 06:45] LABS: Calcium* 7.4 mg/dL (8.4-10.6); Magnesium* 1.4 mg/dL (1.5-2.6)
[2024-12-17 06:47] LABS: C Reactive Protein* 2.5 mg/dL (0.5-1.0)
[2024-12-17] MEDS: ACETAMINOPHEN 650 MG TABLET ER 1300 MG PO (06:59)
[2024-12-17] MEDS: OMEPRAZOLE 20 MG CAPSULE DR 40 MG PO (06:59)
[2024-12-17 07:00] LABS: Procalcitonin* 0.67 ng/mL (<0.50)
[2024-12-17] MEDS: MAGNESIUM IV 2 GM/50 ML PIGGYBACK IVPB (07:57)
[2024-12-17] MEDS: 0.9 % SODIUM CHLORIDE 1000 ml 1,000 ML 500 ML IV (08:25)
[2024-12-17] MEDS: POTASSIUM BICARB 25 MEQ EFFERVESCENT TAB PO ×3 (09:46→21:52)
[2024-12-17] MEDS: FOLIC ACID 1 MG TABLET PO (09:47)
[2024-12-17] MEDS: THIAMINE 100 MG TABLET PO (09:47)
[2024-12-17] MEDS: TAMSULOSIN HCL 0.4 MG CAPSULE PO (09:47)
--- NOTE | 2024-12-17 10:15 | PM.IMPN1 ---
Progress Note: A&P Assessment and plan (1) Severe sepsis: Problem details: -SIRS with diarrhea, leukocytosis, elevated RR -MAP and SBP initially low, creatinine 6+ -12/16: labs improving, advancing diet -blood, urine, stool cultures and stool PCR pending -C Diff negative -presume that this is all related to recurrence of collagenous colitis -12/17: Continues to require IV fluid resuscitation for hypotension and tachycardia in the setting of persistent diarrhea, afebrile 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) -12/16: patient defers restarting Budesonide for diarrhea (systemic side effects), amenable to adding Cholestyramine -12/17: Diarrhea worsened; patient amenable to restarting budesonide, continue cholestyramine and scheduled Imodium Status: Acute (3) Acute renal failure: Problem details: -admission creatinine of 6.1; baseline is 1.3-1.4 -trending downward (1.9 on 12/17) -source: likely volume depletion/pre-renal azotemia, possibly also an element of obstruction (known BPH) -fluid resuscitation, richards placed on admission Status: Acute (4) Acidosis: Problem details: -presumably 2/2 ARF -continue IVF resuscitation, avoid nephrotoxins -pH improving Status: Acute (5) Small cell lung carcinoma: Problem details: -Dx 03/2023. s/p chemo and XRT to various lymph nodes. currently on atezolizumab (no active disease), follows with Oncology here/[place] Status: Acute (6) Hypocalcemia: Problem details: -replace and follow Status: Acute (7) Hyperphosphatemia associated with renal failure: Problem details: -normalized 12/16/24 Status: Acute (8) Acute hypokalemia: Problem details: -follow and replace as needed, also replacing magnesium Status: Acute (9) BPH w/o urinary obs/LUTS: Problem details: -richards catheter placed on admission, continue home dose of Tamsulosin Status: Acute (10) Hypertension: Problem details: -hypotension on admission, holding home doses of metoprolol and lisinopril Status: Inactive (11) Hyperlipidemia: Problem details: -hold statin currently Status: Acute (12) Gastro-esophageal reflux: Problem details: -IV PPI, oral PPI am of 12/16 Status: Acute (13) Anemia: Problem details: -chronic, normocytic to macrocytic, stable Hgb without evidence of acute bleeding Status: Acute Plan - per above - anticipate improvement in symptoms with addition of Budesonide and scheduled Imodium 12/17/24 - d/c goal: home (likely with increased assistance) when electrolytes stable, tolerating po intake, and diarrhea resolved Subjective Date Seen: 12/17/24 Interval history: Terence is a delightful 69 yo male who lives alone and has a history of small cell lung carcinoma, who was admitted to the hospital 12/15 for acute renal failure and acidosis in the setting of acute on chronic diarrhea. Admission creatinine 6.1 --> 1.9 today (12/17). Stool cultures pending, C diff negative (history of this 05/2024, status post fecal transplant in 06/2024). Known history of collagenous colitis per colonoscopy biopsy 05/2024, treated with Budesonide. Advanced diet yesterday, diarrhea worsened overnight (20ish watery episodes, no blood). This morning, BP lower than baseline (90s/60s), HR 100s. No dizziness or presyncope. Continues to have hypokalemia, hypomagnesemia, and hypocalcemia, replacing. Amenable to restarting Budesonide today. Working with therapies, energy level only mildly low despite findings above. Exam Narrative: Exam Narrative: GEN: Alert and oriented, sitting up in bedside chair HEENT: EOMIs bilaterally, no scleral icterus CV: Sinus tachycardia with rate in the low 100s during my exam R: LCTA bilaterally without concerning wheezing Ab: Soft and nontender, hyperactive bowel sounds Ext: wwp, no concerning edema Skin: No concerning skin lesions or rashes on exposed skin Neuro: Nonfocal Psych: Appropriate Const: Vital Signs, click to edit/add: Vital Signs - 24 hr 12/16/24 10:56 12/16/24 15:00 12/16/24 15:00 Temperature 96.9 F L 97.5 F L Pulse Rate Pulse Rate [Apical ] 108 H Pulse Rate [Pulse Oximeter] 92 109 H 109 H Respiratory Rate 18 18 18 Blood Pressure [Ri ght Arm] 104/71 115/75 Pulse Oximetry 100 100 Oxygen Delivery Me thod Room Air Room Air 12/16/24 15:00 12/16/24 19:00 12/16/24 23:00 Temperature 96.9 F L Pulse Rate 96 Pulse Rate [Apical ] Pulse Rate [Pulse Oximeter] 105 H 105 H Respiratory Rate 18 18 Blood Pressure [Ri ght Arm] 113/71 Pulse Oximetry 100 Oxygen Delivery Me thod Room Air 12/16/24 23:00 12/16/24 23:00 12/17/24 02:58 Temperature 97.1 F L 97.3 F L Pulse Rate 109 H Pulse Rate [Apical ] Pulse Rate [Pulse Oximeter] 105 H 105 H Respiratory Rate 18 16 Blood Pressure [Ri ght Arm] 103/66 111/66 Pulse Oximetry 99 97 Oxygen Delivery Me thod Room Air Room Air 12/17/24 07:00 Temperature 97.6 F Pulse Rate Pulse Rate [Apical ] Pulse Rate [Pulse Oximeter] 106 H Respiratory Rate 18 Blood Pressure [Ri ght Arm] 90/62 Pulse Oximetry 97 Oxygen Delivery Me thod Room Air Labs Labs: Laboratory Results - last 24 hr 12/15/24 12/17/24 21:00 05:55 WBC 7.07 RBC 3.18 L Hgb 10.5 L Hct 30.1 L MCV 95 MCH 33 MCHC 35 Plt Count 169 VBG pH 7.296 L VBG pCO2 33 L VBG pO2 41.9 VBG HCO3 16 L Sodium 132 L Potassium 3.1 L Chloride 108 Carbon Dioxide 14 L Anion Gap 10 BUN 42 H Creatinine 4.0 H 1.9 H Estimated Creat Clear 13.65 30.29 Estimated GFR 15 37 Glucose 92 Calcium 7.4 L Ionized Calcium [place] 1.09 L Phosphorus 2.3 L Magnesium 1.4 L Total Bilirubin 0.5 Direct Bilirubin 0.3 AST 23 ALT 20 Alkaline Phosphatase 41 C-Reactive Protein 2.5 H Total Protein 4.8 L Albumin 2.7 L Procalcitonin 0.67 H
[2024-12-17] MEDS: BUDESONIDE 3MG CAPSULES PO (10:42)
[2024-12-17] MEDS: LOPERAMIDE HCL 2 MG CAPSULE PO ×2 (12:03→18:37)
--- NOTE | 2024-12-17 19:56 | PC.NURSE ---
End of shift-- Very pleasant and cooperative, alert and oriented patient. VSS, though hypotensive (with B/Ps 80-90s systolically) and tachycardic at times today( with HR as high as 120s), and pt is afebrile. SPO2 maintained >90% on RA. He denied any pain. LS CTA. He c/o frequent, loose stools today. Per his statements, pt had roughly 20x small, liquid BMs overnight last night and 7x more today. MD was notified and pt was given Imodium per MD order. BMs do appear to have slowed. He denied any nausea and tolerated a regular diet without difficulty. Telemetry shows sinus tachycardia with PACs. He was up to the BR today with SBA/ independently and tolerated it well. Shelton was removed per MD order and pt has voided since. Report to [facility].
[2024-12-17] MEDS: ENOXAPARIN 40 MG/0.4 ML INJ SUBCUT (21:53)
[2024-12-18] VITALS (7 sets, daily range): BP systolic 90–136; BP diastolic 60–86; PULSE 95–133; RESP 16–18; TEMP 35.8–36.4; O2SAT 98–100
[2024-12-18] MEDS: 0.9 % SODIUM CHLORIDE 1000 ml 1,000 ML 125 ML IV (02:43)
[2024-12-18 05:23] LABS: Adenovirus PCR Not Detected; Astrovirus PCR Not Detected; Campylobacter PCR Not Detected; Cryptosporidium PCR Not Detected; Cyclospora cayetanensis PCR Not Detected; Entamoeba histolytica PCR Not Detected; Enteroaggregative E coli PCR Not Detected; Enteropathogenic E coli PCR Not Detected; Enterotoxigenic E coli PCR Not Detected; Giardia lamblia PCR Not Detected; Norovirus Gi/GII PCR Not Detected; Plesiomonas shig PCR Not Detected; Rotavirus A PCR Not Detected; Salmonella PCR Not Detected; Sapovirus PCR Not Detected; Shiga toxin E coli PCR Not Detected; Shigella/Enteroinvasive E coli Not Detected; Vibrio PCR Not Detected; Vibrio cholerae PCR Not Detected; Yersinia enterocolitica PCR Not Detected
[2024-12-18] MEDS: OMEPRAZOLE 20 MG CAPSULE DR 40 MG PO (06:25)
[2024-12-18 06:49] LABS: HCO3 VBG 14 mmol/L (21-28); Ionized Calcium* 1.17 mmol/L (1.11-1.30); PCO2 VBG 32 mmHG (40-50); PO2 VBG 47.6 mmHG (25-47); pH VBG 7.252 (7.32-7.43)
[2024-12-18 06:58] LABS: Hematocrit 30.3 % (37.0-53.0); Hemoglobin* 10.2 gm/dL (13.5-17.5); Mean Corpuscular HGB Conc 34 gm/dL (32-36); Mean Corpuscular Hemoglobin 33 pg (26-34); Mean Corpuscular Volume 97 fL (80-100); Platelet Count* 202 K/uL (140-440); Red Blood Count 3.13 m/uL (4.30-5.90)
[2024-12-18 07:04] LABS: Slide Review Reflex No
[2024-12-18 07:28] LABS: Albumin* 2.6 g/dL (3.3-5.0); Chloride* 115 mmol/L (96-114); Sodium* 137 mmol/L (135-149)
[2024-12-18 07:29] LABS: Potassium* 3.5 mmol/L (3.6-5.1)
[2024-12-18 07:30] LABS: Creatinine* 1.3 mg/dL (0.5-1.5); Est. Creatinine Clearance* 44.27; Estimated Glomerular Filt Rate 59 ml/min
[2024-12-18 07:31] LABS: Alanine Aminotransferase* 20 U/L (4-50); Alkaline Phosphatase* 42 U/L (40-150); Anion Gap 10 mEq/L (7-15); Aspartate Amino Transferase* 20 U/L (12-35); Bilirubin Direct* 0.2 mg/dL (0.0-0.5); Bilirubin Total* 0.2 mg/dL (0.1-1.5); Blood Urea Nitrogen* 22 mg/dL (7-30); Carbon Dioxide* 12 mmol/L (20-32); Total Protein* 4.7 g/dL (6.0-8.3)
[2024-12-18 07:32] LABS: Calcium* 7.5 mg/dL (8.4-10.6); Glucose* 99 mg/dL (60-115); Magnesium* 1.7 mg/dL (1.5-2.6); Phosphorus* 2.1 mg/dL (2.5-4.5)
[2024-12-18 07:34] LABS: C Reactive Protein* 4.1 mg/dL (0.5-1.0)
--- NOTE | 2024-12-18 08:14 | PC.NURSE ---
Patient pleasant, alert and oriented. Ambulated independently to bathroom. Continues to have loose stools. Denies any problems urinating. Denied pain. ?
[2024-12-18] MEDS: LOPERAMIDE HCL 2 MG CAPSULE PO ×3 (08:21→18:08)
--- NOTE | 2024-12-18 09:01 | PM.IMPN1 ---
Progress Note: A&P Assessment and plan (1) Severe sepsis: Problem details: -SIRS with diarrhea, leukocytosis, elevated RR -MAP and SBP initially low, creatinine 6+ -12/16: labs improving, advancing diet -blood, urine, stool cultures and stool PCR pending -C Diff negative -presume that this is all related to recurrence of collagenous colitis -12/17: Continues to require IV fluid resuscitation for hypotension and tachycardia in the setting of persistent diarrhea, afebrile -12/18: Tolerating more po intake, trial off of IVFs 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) -12/16: patient defers restarting Budesonide for diarrhea (systemic side effects), amenable to adding Cholestyramine -12/17: Diarrhea worsened; patient amenable to restarting budesonide, continue cholestyramine and scheduled Imodium -12/18: Continued improvement, not yet to the point where he can manage diarrhea independently without IV fluids and electrolyte replacement Status: Acute (3) Acute renal failure: Problem details: -admission creatinine of 6.1; baseline is 1.3-1.4 -trending downward (1.9 on 12/17) -source: likely volume depletion/pre-renal azotemia, possibly also an element of obstruction (known BPH) -fluid resuscitation, richards placed on admission, d/c'd 12/17/24 Status: Acute (4) Acidosis: Problem details: -presumably 2/2 ARF -continue IVF resuscitation, avoid nephrotoxins -pH improving Status: Acute (5) Small cell lung carcinoma: Problem details: -Dx 03/2023. s/p chemo and XRT to various lymph nodes. currently on atezolizumab (no active disease), follows with Oncology here/[place] Status: Acute (6) Hypocalcemia: Problem details: -replace and follow Status: Acute (7) Hyperphosphatemia associated with renal failure: Problem details: -normalized 12/16/24 Status: Acute (8) Acute hypokalemia: Problem details: -follow and replace as needed, also replacing magnesium Status: Acute (9) BPH w/o urinary obs/LUTS: Problem details: -richards catheter placed on admission, continue home dose of Tamsulosin Status: Acute (10) Hypertension: Problem details: -hypotension on admission, holding home doses of metoprolol and lisinopril Status: Inactive (11) Hyperlipidemia: Problem details: -hold statin currently Status: Acute (12) Gastro-esophageal reflux: Problem details: -IV PPI, oral PPI am of 12/16 Status: Acute (13) Anemia: Problem details: -chronic, normocytic to macrocytic, stable Hgb without evidence of acute bleeding Status: Acute Plan - per above - anticipate home in 1-2 days if diarrhea continues to improve Subjective Date Seen: 12/18/24 Interval history: Terence is a delightful 69 yo male who lives alone and has a history of small cell lung carcinoma. He was admitted to the hospital 12/15 for acute renal failure and acidosis in the setting of acute on chronic diarrhea. Admission creatinine 6.1, down to 1.3 on 12/18/24. Stool studies negative, C diff negative (history of this 05/2024, status post fecal transplant in 06/2024). Known history of collagenous colitis per colonoscopy biopsy 05/2024, treated with Budesonide. Since admission, diarrhea increased upon advancing diet. Budesonide restarted 12/17/24, also on scheduled Imodium and Cholestyramine. Diarrhea slowed down overnight, still had close to 10 episodes. Continues to require IVF given sinus tachycardia and hypotension. On electrolyte supplementation. Working with therapies, energy level pretty close to baseline despite findings above. Exam Narrative: Exam Narrative: GEN: Alert and oriented, sitting comfortably in bedside chair and having eggs for breakfast HEENT: EOMIs bilaterally, no scleral icterus CV: RRR (heart rate in the 90s with occasional sinus arrhythmia), No concerning murmurs R: LCTA bilaterally without concerning wheezing Ab: Soft, nontender, nondistended Ext: wwp, no concerning edema Skin: No concerning skin lesions or rashes on exposed skin Neuro: Nonfocal Psych: Appropriate Const: Vital Signs, click to edit/add: Vital Signs - 24 hr 12/17/24 11:59 12/17/24 12:49 12/17/24 15:00 Temperature 96.5 F L 97.0 F L Pulse Rate Pulse Rate [Apical ] Pulse Rate [Pulse Oximeter] 103 H 106 H 101 H Respiratory Rate 20 16 18 Blood Pressure [Ri ght Arm] 93/65 82/55 L 112/72 Pulse Oximetry 98 93 99 Oxygen Delivery Tn thod Room Air Room Air Room Air 12/17/24 15:00 12/17/24 15:56 12/17/24 19:00 Temperature 97.6 F Pulse Rate 104 H Pulse Rate [Apical ] 108 H Pulse Rate [Pulse Oximeter] 101 H 100 Respiratory Rate 18 20 Blood Pressure [Ri ght Arm] 110/69 Pulse Oximetry 98 Oxygen Delivery Tn thod Room Air 12/18/24 02:30 12/18/24 02:42 12/18/24 07:00 Temperature 97.3 F L Pulse Rate 101 H Pulse Rate [Apical ] Pulse Rate [Pulse Oximeter] 104 H 106 H Respiratory Rate 18 18 Blood Pressure [Ri ght Arm] 109/72 Pulse Oximetry 98 Oxygen Delivery Tn thod Room Air 12/18/24 07:00 Temperature 97.6 F Pulse Rate Pulse Rate [Apical ] Pulse Rate [Pulse Oximeter] 106 H Respiratory Rate 18 Blood Pressure [Ri ght Arm] 113/80 Pulse Oximetry 99 Oxygen Delivery Tn thod Room Air Labs Labs: Laboratory Results - last 24 hr 12/15/24 12/18/24 20:00 06:30 WBC 5.50 RBC 3.13 L Hgb 10.2 L Hct 30.3 L MCV 97 MCH 33 MCHC 34 Plt Count 202 VBG pH 7.252 L VBG pCO2 32 L VBG pO2 47.6 H VBG HCO3 14 L Sodium 137 Potassium 3.5 L Chloride 115 H Carbon Dioxide 12 L Anion Gap 10 BUN 22 Creatinine 1.3 Estimated Creat Clear 44.27 Estimated GFR 59 Glucose 99 Calcium 7.5 L Ionized Calcium Tayo 1.17 Phosphorus 2.1 L Magnesium 1.7 Total Bilirubin 0.2 Direct Bilirubin 0.2 AST 20 ALT 20 Alkaline Phosphatase 42 C-Reactive Protein 4.1 H Total Protein 4.7 L Albumin 2.6 L Procalcitonin 12.90 H Stl C. cayetanensis PCR Not Detected Stool Rotavirus A PCR Not Detected Stool Adenovirus (PCR) Not Detected Stool Astrovirus (PCR) Not Detected Stool Campylobacter PCR Not Detected Stool Cryptosporidium PCR Not Detected Stl E.coli Shiga Tox PCR Not Detected Stool E coli O157 PCR N/A Stl Enterotoxigenic E PCR Not Detected Stool EPEC (PCR) Not Detected Stool EAEC (PCR) Not Detected Stl E. histolytica PCR Not Detected Stool Giardia Lamblia PCR Not Detected Stl P. shigelloides PCR Not Detected Stool Salmonella PCR Not Detected Stool Sapovirus (PCR) Not Detected Stl Shigella/EIEC PCR Not Detected St Y.enterocolitica PCR Not Detected Stool Vibrio (PCR) Not Detected Stl Vibrio cholerae PCR Not Detected Stl Norovirus GI/GII PCR Not Detected
[2024-12-18] MEDS: FOLIC ACID 1 MG TABLET PO (09:28)
[2024-12-18] MEDS: TAMSULOSIN HCL 0.4 MG CAPSULE PO (09:28)
[2024-12-18] MEDS: BUDESONIDE 3MG CAPSULES PO (09:28)
[2024-12-18] MEDS: THIAMINE 100 MG TABLET PO (09:28)
[2024-12-18] MEDS: POTASSIUM BICARB 25 MEQ EFFERVESCENT TAB PO ×3 (09:28→20:31)
[2024-12-18] MEDS: ACETAMINOPHEN 650 MG TABLET ER 1300 MG PO (09:35)
[2024-12-18] MEDS: HEPARIN 500 UNIT/5 ML SYRINGE IVF ×2 (11:51→20:32)
[2024-12-18] MEDS: ENOXAPARIN 40 MG/0.4 ML INJ SUBCUT (20:31)
[2024-12-18] MEDS: SODIUM CHLORIDE 0.9 % (FLUSH) 10 ML SYRINGE 5 ML IVF (20:32)
[2024-12-18] MEDS: HYDROmorphone 0.5 mg/0.5 ml inj IVP (20:32)
[2024-12-19] VITALS (8 sets, daily range): BP systolic 106–120; BP diastolic 72–80; PULSE 95–111; RESP 15–18; TEMP 36.1–36.6; O2SAT 98–100
[2024-12-19] MEDS: OMEPRAZOLE 20 MG CAPSULE DR 40 MG PO (06:05)
[2024-12-19] MEDS: SODIUM CHLORIDE 0.9 % (FLUSH) 10 ML SYRINGE 5 ML IVF ×3 (06:08→12:36)
[2024-12-19] MEDS: HEPARIN 500 UNIT/5 ML SYRINGE IVF ×2 (06:08→12:36)
[2024-12-19 06:25] LABS: HCO3 VBG 15 mmol/L (21-28); Ionized Calcium* 1.22 mmol/L (1.11-1.30); PCO2 VBG 32 mmHG (40-50); PO2 VBG 45.4 mmHG (25-47); pH VBG 7.275 (7.32-7.43)
[2024-12-19 06:33] LABS: Hematocrit 30.2 % (37.0-53.0); Hemoglobin* 10.1 gm/dL (13.5-17.5); Mean Corpuscular HGB Conc 33 gm/dL (32-36); Mean Corpuscular Hemoglobin 33 pg (26-34); Mean Corpuscular Volume 98 fL (80-100); Platelet Count* 205 K/uL (140-440); Red Blood Count 3.08 m/uL (4.30-5.90); White Blood Count* 6.64 K/uL (4.50-11.00)
[2024-12-19 06:37] LABS: Slide Review Reflex No
--- NOTE | 2024-12-19 06:37 | PC.NURSE ---
End of shift report [id number]: Alert and oriented x 4. Independent with ambulation and transfers. Tolerated dinner moderately well, patient reports that he had 3-4 several small soft bowel movements between 200-0015 and then no further stools throughout the night. Bowel sounds hyperactive x 4 quadrants. Denies any nausea, oral fluid intake adequate. Denies any chest pain or shortness of breath.
[2024-12-19 07:01] LABS: Albumin* 2.6 g/dL (3.3-5.0); Chloride* 115 mmol/L (96-114)
[2024-12-19 07:02] LABS: Potassium* 3.6 mmol/L (3.6-5.1); Sodium* 136 mmol/L (135-149)
[2024-12-19 07:04] LABS: Alkaline Phosphatase* 42 U/L (40-150); Anion Gap 8 mEq/L (7-15); Aspartate Amino Transferase* 20 U/L (12-35); Bilirubin Direct* 0.2 mg/dL (0.0-0.5); Bilirubin Total* 0.2 mg/dL (0.1-1.5); Blood Urea Nitrogen* 17 mg/dL (7-30); Carbon Dioxide* 13 mmol/L (20-32); Creatinine* 1.3 mg/dL (0.5-1.5); Est. Creatinine Clearance* 44.27; Estimated Glomerular Filt Rate 59 ml/min; Total Protein* 4.6 g/dL (6.0-8.3)
[2024-12-19 07:05] LABS: Alanine Aminotransferase* 23 U/L (4-50); Calcium* 7.7 mg/dL (8.4-10.6); Glucose* 92 mg/dL (60-115); Magnesium* 1.5 mg/dL (1.5-2.6); Phosphorus* 1.8 mg/dL (2.5-4.5)
[2024-12-19 07:19] LABS: Procalcitonin* 8.95 ng/mL (<0.50)
[2024-12-19] MEDS: LOPERAMIDE HCL 2 MG CAPSULE PO ×4 (07:31→21:32)
[2024-12-19] MEDS: FOLIC ACID 1 MG TABLET PO (09:03)
[2024-12-19] MEDS: TAMSULOSIN HCL 0.4 MG CAPSULE PO (09:03)
[2024-12-19] MEDS: THIAMINE 100 MG TABLET PO (09:03)
[2024-12-19] MEDS: BUDESONIDE 3MG CAPSULES PO (09:04)
[2024-12-19] MEDS: POTASSIUM BICARB 25 MEQ EFFERVESCENT TAB PO ×3 (09:05→20:44)
[2024-12-19] MEDS: POTASSIUM PHOS/SODIUM PHOS 250 MG TABLET PO ×4 (09:14→20:44)
[2024-12-19] MEDS: MAGNESIUM IV 2 GM/50 ML PIGGYBACK IVPB (11:10)
--- NOTE | 2024-12-19 13:03 | P.IMPN_ITS ---
Progress Note: A&P Assessment and plan (1) Severe sepsis: Problem details: -SIRS with diarrhea, leukocytosis, elevated RR -MAP and SBP initially low, creatinine 6+ -12/16: labs improving, advancing diet -blood, urine, stool cultures and stool PCR pending -C Diff negative -presume that this is all related to recurrence of collagenous colitis -12/17: Continues to require IV fluid resuscitation for hypotension and tachycardia in the setting of persistent diarrhea, afebrile -12/18: Tolerating more po intake, trial off of IVFs -12/19: he feels much better and he is ready to go home. Patient is still having frequent bowel movement though not as frequent or as big as before. I explained to him that I need to replace his electrolytes today and if he is still feeling well tomorrow we are going to send him home. -ordered p.o. phosphate replacement because his phosphate has been going down and has below yesterday and today it is 1.8. -ordered IV magnesium replacement -continue replacing potassium. 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) -12/16: patient defers restarting Budesonide for diarrhea (systemic side effects), amenable to adding Cholestyramine -12/17: Diarrhea worsened; patient amenable to restarting budesonide, continue cholestyramine and scheduled Imodium -12/18: Continued improvement, not yet to the point where he can manage diarrhea independently without IV fluids and electrolyte replacement -12/19: no more abdominal pain, less frequent bowel movements Status: Acute (3) Acute renal failure: Problem details: -admission creatinine of 6.1; baseline is 1.3-1.4 -trending downward (1.9 on 12/17) -source: likely volume depletion/pre-renal azotemia, possibly also an element of obstruction (known BPH) -fluid resuscitation, richards placed on admission, d/c'd 12/17/24 Status: Resolved (4) Acidosis: Problem details: -normal anion gap acidosis -differential diagnosis: 2/2 ARF, diarrhea, normal saline infusion -status post IVF resuscitation, avoid nephrotoxins -pH improving Status: Acute (5) Small cell lung carcinoma: Problem details: -Dx 03/2023. s/p chemo and XRT to various lymph nodes. currently on atezolizumab (no active disease), follows with Oncology here/[place] Status: Acute (6) Hypocalcemia: Problem details: -replace and follow Status: Acute (7) Hyperphosphatemia associated with renal failure: Problem details: -normalized 12/16/24 Status: Resolved (8) Acute hypokalemia: Problem details: -follow and replace as needed, also replacing magnesium Status: Acute (9) BPH w/o urinary obs/LUTS: Problem details: -richards catheter placed on admission, continue home dose of Tamsulosin Status: Acute (10) Hypertension: Problem details: -hypotension on admission, holding home doses of metoprolol and lisinopril Status: Inactive (11) Hyperlipidemia: Problem details: -hold statin currently Status: Acute (12) Gastro-esophageal reflux: Problem details: -IV PPI, oral PPI am of 12/16 Status: Acute (13) Anemia: Problem details: -chronic, normocytic to macrocytic, stable Hgb without evidence of acute bleeding Status: Acute Time Spent With Patient Total time spent: Today I spent 50 minutes seeing the patient, reviewing Expanse and EPIC notes/diagnostics, discussing the care plan with our care time that includes social work, PT/OT, pharmacy, RT, senior living and documenting my impressions and plan in the medical record. Subjective Date Seen: 12/19/24 Interval history: No acute events overnight. Patient was seen and examined at bedside today. Patient states that he feels much better and he is ready to go home. Patient is still having frequent bowel movement though not as frequent or as big as before. I explained to him that I need to replace his electrolytes today and if he is still feeling well tomorrow we are going to send him home. Exam Narrative: Exam Narrative: Physical exam GENERAL: Comfortable, no acute distress. HEAD AND NECK: Atraumatic, normocephalic CARDIOVASCULAR: RRR. Normal S1, S2. No murmurs. RESPIRATORY: Clear to auscultation B/L. Good air entry B/L. No wheezes or rhonchi. GASTROINTESTINAL: Not distended, not tender to palpation. NEUROLOGY: Alert, awake, oriented X 3. Normal speech. PSYCH: Normal mood, normal affect. Const: Vital Signs, click to edit/add: Vital Signs - 24 hr 12/18/24 15:00 12/18/24 19:00 12/18/24 23:00 Temperature 96.9 F L 97.4 F L Pulse Rate 95 Pulse Rate [Pulse Oximeter] 114 H 103 H Respiratory Rate 18 18 Blood Pressure [Ri ght Arm] 111/80 106/74 Pulse Oximetry 98 100 Oxygen Delivery Me thod Room Air Room Air 12/18/24 23:00 12/18/24 23:00 12/19/24 03:00 Temperature 96.5 F L 97.1 F L Pulse Rate Pulse Rate [Pulse Oximeter] 104 H 104 H 95 Respiratory Rate 18 18 15 Blood Pressure [Ri ght Arm] 136/86 116/78 Pulse Oximetry [address] thod Room Air Room Air 12/19/24 07:00 12/19/24 07:17 12/19/24 11:23 Temperature 96.9 F L 97.8 F Pulse Rate 109 H Pulse Rate [Pulse Oximeter] 111 H 103 H Respiratory Rate 18 18 Blood Pressure [Ri ght Arm] 106/79 109/80 Pulse Oximetry [address] thod Room Air Room Air Labs Labs: Laboratory Results - last 24 hr 12/19/24 06:10 WBC 6.64 RBC 3.08 L Hgb 10.1 L Hct 30.2 L MCV 98 MCH 33 MCHC 33 Plt Count 205 VBG pH 7.275 L VBG pCO2 32 L VBG pO2 45.4 VBG HCO3 15 L Sodium 136 Potassium 3.6 Chloride 115 H Carbon Dioxide 13 L Anion Gap 8 BUN 17 Creatinine 1.3 Estimated Creat Clear 44.27 Estimated GFR 59 Glucose 92 Calcium 7.7 L Ionized Calcium Tayo 1.22 Phosphorus 1.8 L Magnesium 1.5 Total Bilirubin 0.2 Direct Bilirubin 0.2 AST 20 ALT 23 Alkaline Phosphatase 42 C-Reactive Protein 2.0 H Total Protein 4.6 L Albumin 2.6 L Procalcitonin 8.95 H
[2024-12-19] MEDS: ENOXAPARIN 40 MG/0.4 ML INJ SUBCUT (20:44)
[2024-12-20] VITALS (9 sets, daily range): BP systolic 94–120; BP diastolic 65–94; PULSE 90–122; RESP 18; TEMP 36.1–36.6; O2SAT 94–100
[2024-12-20] MEDS: LOPERAMIDE HCL 2 MG CAPSULE PO ×3 (03:03→08:16)
--- NOTE | 2024-12-20 05:44 | PC.NURSE ---
End of shift report [id number]: Pleasant and cooperative with cares. Denies any nausea or vomiting. Patient tolerated regular diet at dinner, had spaghetti and meatballs and completed meal around 0. At 2029 patient had x-large loose stool, reporting he can feel everything moving through his intestines. Wellness Rn spoke with hospitalist Dr. Morgan and new order for PRN loperamide 2mg q2h, do not exceed 16mg per day. Patient had prn at 0 and tolerated well. Between 0 and 299 patient states that he was up 3 times with loose stools, again he can feel his stomach rumble and has urgency to his bowels. Continues to deny and nausea or vomiting. Tolerating fluid intake without concern. Bowel sounds hyperactive x 4 quadrants.
[2024-12-20] MEDS: OMEPRAZOLE 20 MG CAPSULE DR 40 MG PO (06:20)
[2024-12-20 06:43] LABS: Hematocrit 31.5 % (37.0-53.0); Hemoglobin* 10.6 gm/dL (13.5-17.5); Mean Corpuscular HGB Conc 34 gm/dL (32-36); Mean Corpuscular Hemoglobin 33 pg (26-34); Mean Corpuscular Volume 98 fL (80-100); Platelet Count* 249 K/uL (140-440); Red Blood Count 3.22 m/uL (4.30-5.90)
[2024-12-20 06:50] LABS: Slide Review Reflex No
[2024-12-20 07:04] LABS: Albumin* 2.8 g/dL (3.3-5.0); Chloride* 115 mmol/L (96-114); Sodium* 137 mmol/L (135-149)
[2024-12-20 07:05] LABS: Potassium* 3.9 mmol/L (3.6-5.1)
[2024-12-20 07:07] LABS: Creatinine* 1.1 mg/dL (0.5-1.5); Est. Creatinine Clearance* 52.32; Estimated Glomerular Filt Rate 72 ml/min
[2024-12-20 07:08] LABS: Anion Gap 8 mEq/L (7-15); Blood Urea Nitrogen* 12 mg/dL (7-30); Calcium* 7.9 mg/dL (8.4-10.6); Carbon Dioxide* 14 mmol/L (20-32); Glucose* 101 mg/dL (60-115); Magnesium* 1.6 mg/dL (1.5-2.6); Phosphorus* 1.7 mg/dL (2.5-4.5)
[2024-12-20 07:10] LABS: C Reactive Protein* 0.8 mg/dL (0.5-1.0)
[2024-12-20] MEDS: BUDESONIDE 3MG CAPSULES PO (09:11)
[2024-12-20] MEDS: POTASSIUM BICARB 25 MEQ EFFERVESCENT TAB PO ×3 (09:11→20:49)
[2024-12-20] MEDS: FOLIC ACID 1 MG TABLET PO (09:12)
[2024-12-20] MEDS: THIAMINE 100 MG TABLET PO (09:12)
[2024-12-20] MEDS: TAMSULOSIN HCL 0.4 MG CAPSULE PO (09:12)
--- NOTE | 2024-12-20 12:52 | P.IMPN_ITS ---
Progress Note: A&P Assessment and plan (1) Severe sepsis: Problem details: -SIRS with diarrhea, leukocytosis, elevated RR -MAP and SBP initially low, creatinine 6+ -12/16: labs improving, advancing diet -blood, urine, stool cultures and stool PCR pending -C Diff negative -presume that this is all related to recurrence of collagenous colitis -12/17: Continues to require IV fluid resuscitation for hypotension and tachycardia in the setting of persistent diarrhea, afebrile -12/18: Tolerating more po intake, trial off of IVFs -12/19: he feels much better and he is ready to go home. Patient is still having frequent bowel movement though not as frequent or as big as before. I explained to him that I need to replace his electrolytes today and if he is still feeling well tomorrow we are going to send him home. -ordered p.o. phosphate replacement because his phosphate has been going down and has below yesterday and today it is 1.8. -ordered IV magnesium replacement -continue replacing potassium. -12/20: I contacted Dr Sergei Martinez (GI, [facility]) who stated that we need to repeat C-diff testing and double his Imodium dose (to 4 mg TID) and if c-diff result comes back -ve again and he doesnt improve w/ a higher imodium dose, then we can contact him again to transfer the pt. -IV phosphate replacement. 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) -12/16: patient defers restarting Budesonide for diarrhea (systemic side effects), amenable to adding Cholestyramine -12/17: Diarrhea worsened; patient amenable to restarting budesonide, continue cholestyramine and scheduled Imodium -12/18: Continued improvement, not yet to the point where he can manage diarrhea independently without IV fluids and electrolyte replacement -12/19: no more abdominal pain, less frequent bowel movements -12/20: I contacted Dr Sergei Martinez (GI, [facility]) who stated that we need to repeat C-diff testing and double his Imodium dose (to 4 mg TID) and if c-diff result comes back -ve again and he doesnt improve w/ a higher imodium dose, then we can contact him again to transfer the pt. Status: Acute (3) Acute renal failure: Problem details: -admission creatinine of 6.1; baseline is 1.3-1.4 -trending downward (1.9 on 12/17) -source: likely volume depletion/pre-renal azotemia, possibly also an element of obstruction (known BPH) -fluid resuscitation, richards placed on admission, d/c'd 12/17/24 Status: Resolved (4) Acidosis: Problem details: -normal anion gap acidosis -differential diagnosis: 2/2 ARF, diarrhea, normal saline infusion -status post IVF resuscitation, avoid nephrotoxins -pH improving Status: Acute (5) Small cell lung carcinoma: Problem details: -Dx 03/2023. s/p chemo and XRT to various lymph nodes. currently on atezolizumab (no active disease), follows with Oncology here/[place] Status: Acute (6) Hypocalcemia: Problem details: -replace and follow Status: Acute (7) Hyperphosphatemia associated with renal failure: Problem details: -normalized 12/16/24 Status: Resolved (8) Acute hypokalemia: Problem details: -follow and replace as needed, also replacing magnesium Status: Acute (9) BPH w/o urinary obs/LUTS: Problem details: -richards catheter placed on admission, continue home dose of Tamsulosin Status: Acute (10) Hypertension: Problem details: -hypotension on admission, holding home doses of metoprolol and lisinopril Status: Inactive (11) Hyperlipidemia: Problem details: -hold statin currently Status: Acute (12) Gastro-esophageal reflux: Problem details: -IV PPI, oral PPI am of 12/16 Status: Acute (13) Anemia: Problem details: -chronic, normocytic to macrocytic, stable Hgb without evidence of acute bleeding Status: Acute Plan I contacted Dr Sergei Martinez (GI, [facility]) who stated that we need to repeat C-diff testing and double his Imodium dose (to 4 mg TID) and if c-diff result comes back -ve again and he doesnt improve w/ the higher imodium dose, then we can contact him again to transfer the pt. D/W the pt and his son. Time Spent With Patient Total time spent: Today I spent 50 minutes seeing the patient, reviewing Expanse and EPIC notes/diagnostics, discussing the care plan with our care time that includes social work, PT/OT, pharmacy, RT, longterm and documenting my impressions and plan in the medical record. Subjective Date Seen: 12/20/24 Interval history: Patient was seen and examined at bedside today. Patient states that he is still having frequent bowel movement just like he used to have at home prior to admission. I discussed w/ the pt and his son (on facetime) that we were able to treat his acute renal failure and replace his electrolytes and we were treating him w/ budesonide and imodium and the next step would be consulting or even transferring him to [facility] to his GI physician to treat his chronic severe diarrhea. I contacted Dr Sergei Martinez (GI, [facility]) who stated that we need to repeat C-diff testing and double his Imodium dose (to 4 mg TID) and if c-diff result comes back -ve again and he doesnt improve w/ the higher imodium dose, then we c an contact him again to transfer the pt. Exam Narrative: Exam Narrative: Physical exam GENERAL: Comfortable, no acute distress. HEAD AND NECK: Atraumatic, normocephalic CARDIOVASCULAR: RRR. Normal S1, S2. No murmurs. RESPIRATORY: Clear to auscultation B/L. Good air entry B/L. GASTROINTESTINAL: Not distended, not tender to palpation. NEUROLOGY: Alert, awake, oriented X 3. Normal speech. No focal weakness. PSYCH: Normal mood, normal affect. Const: Vital Signs, click to edit/add: Vital Signs - 24 hr 12/19/24 15:00 12/19/24 16:48 12/19/24 19:00 Temperature 97.8 F 96.9 F L Pulse Rate Pulse Rate [Apical ] 108 H Pulse Rate [Pulse Oximeter] 110 H 107 H Respiratory Rate 18 18 18 Blood Pressure [Ri ght Arm] 120/77 120/79 Pulse Oximetry 99 98 Oxygen Delivery Me thod Room Air Room Air 12/19/24 23:00 12/19/24 23:00 12/19/24 23:00 Temperature 97.4 F L Pulse Rate 103 H Pulse Rate [Apical ] 99 99 Pulse Rate [Pulse Oximeter] Respiratory Rate 16 16 Blood Pressure [Ri ght Arm] 114/72 Pulse Oximetry 99 Oxygen Delivery Me thod Room Air 12/20/24 03:00 12/20/24 08:14 12/20/24 11:00 Temperature 97.0 F L 96.9 F L 97.5 F L Pulse Rate Pulse Rate [Apical ] 102 H Pulse Rate [Pulse Oximeter] 102 H 114 H Respiratory Rate 18 18 18 [facility] 108/70 112/78 94/65 Pulse Oximetry 98 94 97 Oxygen Delivery Me thod Room Air Room Air Room Air Labs Labs: Laboratory Results - last 24 hr 12/20/24 06:15 WBC 7.70 RBC 3.22 L Hgb 10.6 L Hct 31.5 L MCV 98 MCH 33 MCHC 34 Plt Count 249 Sodium 137 Potassium 3.9 Chloride 115 H Carbon Dioxide 14 L Anion Gap 8 BUN 12 Creatinine 1.1 Estimated Creat Clear 52.32 Estimated GFR 72 Glucose 101 Calcium 7.9 L Ionized Calcium Tayo 1.20 Phosphorus 1.7 L Magnesium 1.6 C-Reactive Protein 0.8 Albumin 2.8 L
[2024-12-20] MEDS: HEPARIN 500 UNIT/5 ML SYRINGE IVF (15:13)
[2024-12-20] MEDS: SODIUM CHLORIDE 0.9 % (FLUSH) 10 ML SYRINGE 5 ML IVF (15:13)
[2024-12-20 16:25] LABS: C.Difficile Negative (Negative); CDIFFEPI 027 PRESUMPTIVE NEGATIVE (Negative)
[2024-12-20] MEDS: LOPERAMIDE HCL 2 MG CAPSULE 4 MG PO (18:15)
[2024-12-20] MEDS: LORazepam 1 MG TABLET PO (18:41)
[2024-12-20] MEDS: 0.9 % SODIUM CHLORIDE 1000 ml 1,000 ML 100 ML IV (18:59)
--- NOTE | 2024-12-20 19:00 | W.PM.CROSSCO ---
Subjective Subjective Time Seen by Provider: 18:00 Date Seen: 12/20/24 Interval history: Terence's nurse informed me that he was upset and wanted to leave AMA. I went to see him and he explained that he thought the plan was that he would be transferred to [place] by this evening if today's Cdiff test came back negative. I reviewed with him that it did come back negative and that the plan Dr. Callejas discussed with the GI doctor at [place] was to increase loperamide if Cdiff was negative and to transfer to [place] tomorrow if diarrhea did not improve with the increased dose. Terence was upset and frustrated. He wanted me to talk with his son, who was unavailable at that moment. I came back later and Terence got his son, Nick, on the phone. We all spoke I updated Nick with the plan and my concern for dehydration and ZAINAB if Terence left AMA while still having profuse diarrhea. Terence wanted me to call [facility] to see if they could take him tonight. I spoke with the [facility] transfer center. She said there is documentation that Dr. Callejas spoke with Dr. Calle from GI earlier today and that the plan was to check Cdiff today, and if negative, to try increased doses of loperamide overnight; if that was unsuccessful, transfer to [facility] tomorrow. I asked if there was anyway they could take him tonight, per patient's preference. She informed me that their GI service is capped tonight. I relayed this information to the patient and his son (who was again on the phone). Terence agreed to stay here tonight and receive treatment with IVF, increased doses of loperamide and medications as needed for afib with RVR, as Terence's HR had become elevated while feeling upset. Objective Objective Data Details: BP 94/65 HR 113-140's RR18 O2 sat 96%RA General: Upset, calmed down during and at the conclusion of our conversation. Awake, alert, oriented. No pallor. No jaundice. 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) -12/16: patient defers restarting Budesonide for diarrhea (systemic side effects), amenable to adding Cholestyramine -12/17: Diarrhea worsened; patient amenable to restarting budesonide, continue cholestyramine and scheduled Imodium -12/18: Continued improvement, not yet to the point where he can manage diarrhea independently without IV fluids and electrolyte replacement -12/19: no more abdominal pain, less frequent bowel movements -12/20: I contacted Dr Sergei Martinez (GI, [facility]) who stated that we need to repeat C-diff testing and double his Imodium dose (to 4 mg TID) and if c-diff result comes back -ve again and he doesnt improve w/ a higher imodium dose, then we can contact him again to transfer the pt. - 12/20: As above, [facility] capped tonight. Patient is stable. Cdiff negative, loperamide dose increased, giving IVF, recheck labs in am and attempt transfer to [place] tomorrow if diarrhea has not improved. Patient agreeable to stay tonight. Status: Acute (2) Atrial fibrillation with RVR: Problem comment: - No h/o afib in Expanse or Epic - Telemetry shows tachycardia that is irregular, but with some P-waves, rhythm unclear - Obtain EKG - Give IVF bolus as previously ordered. Patient is on metoprolol at home, this was not ordered during this admission. Status: Suspected Total Time Spent Total Time Spent: Today I spent 40 additional minutes seeing the patient, reviewing Expanse and EPIC notes/diagnostics/labs, discussing the care plan with the patient's nurse, patient, his son, [facility] transfer center.
--- NOTE | 2024-12-20 19:20 | PC.NURSE ---
shift note: Indept in room. HR elevated this josé 148/min with rhythm per tele at [facility] RVR. Dr. Morgan at bedside and aware. Orders to give PO ativan and continue to monitor HR. Pt had coherence with Dr. Morgan and his son regarding further poc at [place]. Port patent with IV fluids infusing. Pt had 2 light brown loose stool of 400cc. BP slightly lower this afternoon than baseline. Pt asymptomatic.
[2024-12-20] MEDS: ENOXAPARIN 40 MG/0.4 ML INJ SUBCUT (20:49)
[2024-12-21] VITALS (8 sets, daily range): BP systolic 96–118; BP diastolic 65–85; PULSE 88–111; RESP 16–18; TEMP 36.1–36.4; O2SAT 97–100
[2024-12-21] MEDS: 0.9 % SODIUM CHLORIDE 1000 ml 1,000 ML 100 ML IV (04:09)
[2024-12-21] MEDS: LOPERAMIDE HCL 2 MG CAPSULE PO (06:17)
--- NOTE | 2024-12-21 06:28 | PC.NURSE ---
Addendum entered by Buck Aragon RN 12/21/24 06:58: At 0630, patient's port appeared not to be working. Attempt to flash failed. Pt still have about 750mls of N/S to be infused. Offered to insert peripheral IV line was refused by pt. He stated i am going to be discharged this morning so let just leave it Original Note: Shift note: Pt had a total of 6 loose medium size BM within this 12hr shift. He stated that the increase in the dosage of the Imodium did not seem to help. 2mg of Imodium given this morning. Pt appeared active, no SOB, weakness, N/V or fever recorded. He did fall back to sleep after he uses the BR.
[2024-12-21 07:03] LABS: Ionized Calcium* 1.14 mmol/L (1.11-1.30)
[2024-12-21 07:11] LABS: Hematocrit 31.2 % (37.0-53.0); Hemoglobin* 10.4 gm/dL (13.5-17.5); Mean Corpuscular HGB Conc 33 gm/dL (32-36); Mean Corpuscular Hemoglobin 33 pg (26-34); Mean Corpuscular Volume 98 fL (80-100); Platelet Count* 211 K/uL (140-440); Red Blood Count 3.17 m/uL (4.30-5.90); White Blood Count* 7.23 K/uL (4.50-11.00)
[2024-12-21 07:19] LABS: Slide Review Reflex No
[2024-12-21] MEDS: OMEPRAZOLE 20 MG CAPSULE DR 40 MG PO (07:22)
[2024-12-21 07:27] LABS: Albumin* 2.5 g/dL (3.3-5.0); Chloride* 114 mmol/L (96-114); Potassium* 3.5 mmol/L (3.6-5.1); Sodium* 136 mmol/L (135-149)
[2024-12-21 07:30] LABS: Est. Creatinine Clearance* 57.56; Estimated Glomerular Filt Rate 81 ml/min
[2024-12-21 07:31] LABS: Anion Gap 6 mEq/L (7-15); Blood Urea Nitrogen* 9 mg/dL (7-30); Calcium* 7.5 mg/dL (8.4-10.6); Carbon Dioxide* 16 mmol/L (20-32); Glucose* 103 mg/dL (60-115); Magnesium* 1.3 mg/dL (1.5-2.6); Phosphorus* 1.7 mg/dL (2.5-4.5)
[2024-12-21 07:34] LABS: C Reactive Protein* 0.9 mg/dL (0.5-1.0)
[2024-12-21] MEDS: POTASSIUM BICARB 25 MEQ EFFERVESCENT TAB PO ×2 (09:18→14:11)
[2024-12-21] MEDS: THIAMINE 100 MG TABLET PO (09:19)
[2024-12-21] MEDS: LOPERAMIDE HCL 2 MG CAPSULE 4 MG PO ×3 (09:19→17:24)
[2024-12-21] MEDS: BUDESONIDE 3MG CAPSULES PO (09:19)
[2024-12-21] MEDS: FOLIC ACID 1 MG TABLET PO (09:19)
[2024-12-21] MEDS: TAMSULOSIN HCL 0.4 MG CAPSULE PO (09:19)
--- NOTE | 2024-12-21 11:57 | CRLHL7_ITS ---
For Patients: As a result of the Century Cures Act, medical imaging exams and procedure reports are released immediately into your electronic medical record. You may view this report before your referring provider. If you have questions, please contact your health care provider. INDICATION: Severe diarrhea. History of lung cancer. TECHNIQUE: CT abdomen and pelvis acquired with 68 mL Isovue 370 contrast. COMPARISON: PET-CT dated 08/27/2024. FINDINGS: Lower chest: No focal consolidation. Liver: No suspicious focal hepatic lesion. Gallbladder and bile ducts: Cholelithiasis. Mildly hydropic gallbladder, without significant gallbladder wall thickening or pericholecystic fluid. Pancreas: Stable punctate calcifications at the uncinate process. Stable curvilinear calcification at the pancreatic tail. No significant pancreatic duct dilation. Spleen: Unremarkable. Adrenal glands: Unremarkable. Kidneys: Kidneys enhance symmetrically, without hydronephrosis. Retroperitoneum: No lymphadenopathy. Bowel and mesentery: Bowel is not obstructed. Trace free fluid in the pelvis, likely reactive. No pneumoperitoneum. Postsurgical changes at the cecum. Fluid-filled, compatible with diarrheal illness/colitis. Bladder: Unremarkable for degree of distention. Reproductive organs: No prostatomegaly. Pelvic lymph nodes: No lymphadenopathy. Vessels: Extensive atherosclerotic calcifications. Abdominal wall: Mild anasarca. Bones: Multilevel degenerative changes of the spine. Bones are osteopenic. Severe compression fracture of the L2 vertebral body, chronic appearing. IMPRESSION: 1. Fluid-filled colon, compatible with diarrheal illness/colitis. 2. Cholelithiasis. Mildly hydropic gallbladder, without additional signs of acute cholecystitis. 3. Stable additional incidental findings as above. Please note that all CT scans at this facility use dose modulation, iterative reconstruction, and/or weight-based dosing when appropriate to reduce radiation dose to as low as reasonably achievable. Dictated by Gee Monge MD @ 12/21/2024 1:34:00 PM (Electronically Signed)
--- NOTE | 2024-12-21 12:34 | PM.DS1 ---
DS: Providers Provider Date Seen: 12/21/24 Date of admission: 12/15/24 12:30 Primary care physician: Andrei Burnham MD Admitting Clinician: Vielka Boogie MD Consults: 12/15/24 13:03 Consult to Occupational Therapy [CONS] Routine Comment: Reason(s) for OT Consult:: Evaluate and Treat Any Restrictions?:: No Restrictions Consult to Physical Therapy [CONS] Routine Comment: Reason(s) for PT Consult:: Evaluate Ambulation Any Restrictions?:: No Restrictions Consult to Economic Consultant [CONS] Routine Comment: Reason for Consult:: Social Service Consult Attending Physician on discharge: Brittany Callejas MD DS: Diagnosis Discharge Diagnosis (1) Severe sepsis: Status: Acute Problem details: -SIRS with diarrhea, leukocytosis, elevated RR -MAP and SBP initially low, creatinine 6+ -12/16: labs improving, advancing diet -blood, urine, stool cultures and stool PCR pending -C Diff negative -presume that this is all related to recurrence of collagenous colitis -12/17: Continues to require IV fluid resuscitation for hypotension and tachycardia in the setting of persistent diarrhea, afebrile -12/18: Tolerating more po intake, trial off of IVFs -12/19: he feels much better and he is ready to go home. Patient is still having frequent bowel movement though not as frequent or as big as before. I explained to him that I need to replace his electrolytes today and if he is still feeling well tomorrow we are going to send him home. -ordered p.o. phosphate replacement because his phosphate has been going down and has below yesterday and today it is 1.8. -ordered IV magnesium replacement -continue replacing potassium. -2: I contacted Dr Sergei Martinez (GI, [facility]) who stated that we need to repeat C-diff testing and double his Imodium dose (to 4 mg TID) and if c-diff result comes back -ve again and he doesnt improve w/ a higher imodium dose, then we can contact him again to transfer the pt. -IV phosphate replacement. -23: Repeat C-diff test -ve and Imodium didnt help w/ his severe diarrhea, Contacted [facility] again this AM and they accepted the pt. -IV phosphate K, Mg replacement. Pt refused IV fluids. -Ordered CT abd/pelv w/ contrast as pt didnt improve clinically. (2) Gastroenteritis: Status: Acute Problem details: -presented with acute on chronic diarrhea -DDx: Collagenous colitis, side effect from anticancer medication, infectious colitis (less likely, Stool Culture negative for Salmonella, Shigella, Campylobacter, E. coli O157, Vibrio, Aeromonas, and Plesiomonas species). 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) -12/16: patient defers restarting Budesonide for diarrhea (systemic side effects), amenable to adding Cholestyramine -12/17: Diarrhea worsened; patient amenable to restarting budesonide, continue cholestyramine and scheduled Imodium -12/18: Continued improvement, not yet to the point where he can manage diarrhea independently without IV fluids and electrolyte replacement -12/19: no more abdominal pain, less frequent bowel movements -12/20: I contacted Dr Sergei Martinez (GI, [facility]) who stated that we need to repeat C-diff testing and double his Imodium dose (to 4 mg TID) and if c-diff result comes back -ve again and he doesnt improve w/ a higher imodium dose, then we can contact him again to transfer the pt. - 12/20: As above, [facility] capped tonight. Patient is stable. Cdiff negative, loperamide dose increased, giving IVF, recheck labs in am and attempt transfer to [place] tomorrow if diarrhea has not improved. Patient agreeable to stay tonight. -12/21: Repeat C-diff test -ve and Imodium didnt help w/ his severe diarrhea, Contacted [facility] again this AM and they accepted the pt. -IV phosphate K, Mg replacement. Pt refused IV fluids. -Ordered CT abd/pelv w/ contrast as pt didnt improve clinically. (3) Acute renal failure: Status: Resolved Problem details: -admission creatinine of 6.1; baseline is 1.3-1.4 -trending downward (1.9 on 12/17) -source: likely volume depletion/pre-renal azotemia, possibly also an element of obstruction (known BPH) -fluid resuscitation, richards placed on admission, d/c'd 12/17/24 (4) Acidosis: Status: Acute Problem details: -normal anion gap acidosis -differential diagnosis: 2/2 ARF, diarrhea, normal saline infusion -status post IVF resuscitation, avoid nephrotoxins -pH improving (5) Small cell lung carcinoma: Status: Acute Problem details: -Dx 03/2023. s/p chemo and XRT to various lymph nodes. currently on atezolizumab (no active disease), follows with Oncology here/[place] (6) Hypocalcemia: Status: Acute Problem details: -replace and follow (7) Hyperphosphatemia associated with renal failure: Status: Resolved Problem details: -normalized 12/16/24 (8) Acute hypokalemia: Status: Acute Problem details: -follow and replace as needed, also replacing magnesium (9) BPH w/o urinary obs/LUTS: Status: Acute Problem details: -richards catheter placed on admission, continue home dose of Tamsulosin (10) Hypertension: Status: Inactive Problem details: -hypotension on admission, holding home doses of metoprolol and lisinopril (11) Hyperlipidemia: Status: Acute Problem details: -hold statin currently (12) Gastro-esophageal reflux: Status: Acute Problem details: -IV PPI, oral PPI am of 12/16 (13) Anemia: Status: Acute Problem details: -chronic, normocytic to macrocytic, stable Hgb without evidence of acute bleeding DS: Summary Hospital Course Hospital Course: A 69-year-old male patient with past medical history of atrial fibrillation, collagenous colitis, history of C diff infection that was treated with a fecal transplant in June 2024, small cell lung carcinoma on atezolizumab who presents with severe dehydration, severe diarrhea and an ZAINAB. Patient was treated with IV fluids and daily electrolyte replacements and a his ZAINAB has resolved. He was put on budesonide 9 mg daily in addition to Imodium and cholestyramine which did not work and his diarrhea did not improve, patient is still having very frequent bowel movements up to 20 per day. We contacted [facility] as the GI team there knows the patient, he had his it is C diff treated there with the a fecal transplant. C diff was negative twice during his stay (on 2 different days). [facility] accepted the patient for transfer all the on December 21. Status at Discharge Functional status at discharge: independent ambulation Overall status at discharge: patient is not back to baseline Time Spent with Patient Time attestation: Total time spent providing and/or coordinating discharge services: 50 Exam Narrative: Exam Narrative: Physical exam GENERAL: Comfortable, no acute distress. HEAD AND NECK: Atraumatic, normocephalic CARDIOVASCULAR: RRR. Normal S1, S2. No murmurs. RESPIRATORY: Clear to auscultation B/L. Good air entry B/L. No wheezes or rhonchi. GASTROINTESTINAL: Not distended, not tender to palpation. NEUROLOGY: Alert, awake, oriented X 3. Normal speech. No focal weakness. PSYCH: Normal mood, normal affect. Const: Vital Signs, click to edit/add: Vital Signs - 24 hr 12/20/24 15:00 12/20/24 15:00 12/20/24 16:52 Temperature 97.2 F L Pulse Rate 120 H Pulse Rate [Apical ] 122 H Pulse Rate [Pulse Oximeter] 122 H Respiratory Rate 18 18 Blood Pressure [Ri ght Arm] 102/68 Pulse Oximetry 96 Oxygen Delivery Tn thod Room Air 12/20/24 19:00 12/20/24 22:39 12/20/24 22:39 Temperature 97.5 F L 98 F Pulse Rate Pulse Rate [Apical ] Pulse Rate [Pulse Oximeter] 113 H 101 H 101 H Respiratory Rate 18 18 18 Blood Pressure [Ri ght Arm] 120/94 H 117/74 Pulse Oximetry 100 98 Oxygen Delivery Tn thod Room Air Room Air 12/20/24 23:00 12/21/24 02:57 12/21/24 07:00 Temperature 97.6 F Pulse Rate 90 103 H Pulse Rate [Apical ] Pulse Rate [Pulse Oximeter] 98 Respiratory Rate 18 Blood Pressure [Ri ght Arm] 96/69 Pulse Oximetry 98 Oxygen Delivery Tn thod Room Air 12/21/24 07:49 12/21/24 07:50 12/21/24 11:00 Temperature 97.6 F 97.0 F L Pulse Rate Pulse Rate [Apical ] Pulse Rate [Pulse Oximeter] 93 103 H 107 H Respiratory Rate 18 16 Blood Pressure [Ri ght Arm] 97/65 118/85 Pulse Oximetry 97 100 Oxygen Delivery Tn thod Room Air Room Air DS: Data Data Completed and Pending Labs on day of discharge: Labs from last 24 hours 12/21/24 12/20/24 06:49 15:32 WBC 7.23 RBC 3.17 L Hgb 10.4 L Hct 31.2 L MCV 98 MCH 33 MCHC 33 Plt Count 211 Sodium 136 Potassium 3.5 L Chloride 114 Carbon Dioxide 16 L Anion Gap 6 L BUN 9 Creatinine 1.0 Estimated Creat Clear 57.56 Estimated GFR 81 Glucose 103 Calcium 7.5 L Ionized Calcium Tayo 1.14 Phosphorus 1.7 L Magnesium 1.3 L C-Reactive Protein 0.9 Albumin 2.5 L Stl C. diff Tox B Gene Negative Stl C. diff [id number] PRESUMPTIVE NEGATIVE Preliminary micro results at discharge 12/15/24 20:00 Stool Culture - Preliminary Stool Discharge Plan Discharge Disposition: General Acute Hospital Date of Admission: 12/15/24 12:30 Attending Provider on Discharge: Brittany Callejas Primary Care Provider: Andrei Burnham Discharge Orders: Transfer of Care to Other Hospital (ORDER); Ordered 12/21/24 Ordered By: Brittany Callejas Additional Instructions: Follow-up with gastroenterology Oxygen: No Urinary Catheter: No Services not available here: gastroenterology
[2024-12-21] MEDS: MAGNESIUM IV 2 GM/50 ML PIGGYBACK IVPB (12:58)
--- NOTE | 2024-12-21 19:00 | PC.NURSE ---
Pt alert and oriented. Pt up independently in room. Pt had no complaints of pain. Pt has a port that is accessed. Pt?s VS WNL.Pt has been accepted by [facility] for higher level of care; EMS transported at 1830. With IV fluids still running.
== END 2024-12-21 18:30 | disposition short-term general hospital (02) | DRG 872 ==
PROVIDERS: Internal Medicine; Student in an Organized Health Care Education/Training Program; Admitting Provider Family Medicine; PCP Family Medicine; Visit Provider Family Medicine
DX: A41.9 Sepsis, unspecified organism (principal); N17.9 Acute kidney failure, unspecified; E87.20 Acidosis, unspecified; I47.10 Supraventricular tachycardia, unspecified; C34.11 Malignant neoplasm of upper lobe, right bronchus or lung; A04.72 Enterocolitis due to Clostridium difficile, not specified as recurrent; K52.9 Noninfective gastroenteritis and colitis, unspecified; K52.831 Collagenous colitis; R65.20 Severe sepsis without septic shock; E83.51 Hypocalcemia; E83.39 Other disorders of phosphorus metabolism; E87.6 Hypokalemia; E86.0 Dehydration; D64.9 Anemia, unspecified; I10 Essential (primary) hypertension; I49.3 Ventricular premature depolarization; N40.1 Benign prostatic hyperplasia with lower urinary tract symptoms; K21.9 Gastro-esophageal reflux disease without esophagitis; I25.10 Atherosclerotic heart disease of native coronary artery without angina pectoris; I73.9 Peripheral vascular disease, unspecified; E78.5 Hyperlipidemia, unspecified; R94.6 Abnormal results of thyroid function studies; E53.8 Deficiency of other specified B group vitamins; Z79.82 Long term (current) use of aspirin
CPT/HCPCS: 36415; 51701; 71045; 74018; 74177; 80053; 80069; 80076; 81001; 82330; 82803; 83605; 83735; 83789; 84100; 84145; 84443; 85025; 85027; 86140; 87040; 87045; 87046; 87086; 87427; 87493; 87505; 87631; 93005; 94761; 97112; 97116; 97162; 97166; 97530; 97535; A9270; J0613; J1171; J1642; J1650; J2470; J3475; J3480; J7030; J7050; J7070; J7307; Q9967

== ENCOUNTER 2024-12-21 18:31 | Outpatient (CLI) | payer MEDICARE, BC, SELFPAY | END 2024-12-21 18:32 | disposition home or self-care (01) | LOC: AMB 12-29 07:11 | PROVIDERS: PCP Family Medicine; Visit Provider Emergency Medicine Emergency Medical Services | DX: A41.9 Sepsis, unspecified organism (principal); K52.9 Noninfective gastroenteritis and colitis, unspecified; N17.9 Acute kidney failure, unspecified; E87.20 Acidosis, unspecified | CPT/HCPCS: A0425; A0434 ==

== ENCOUNTER 2024-12-31 14:31 | Outpatient (CLI) | payer MEDICARE, BC, SELFPAY | END 2024-12-31 14:32 | disposition home or self-care (01) | LOC: RAD 14:32 | PROVIDERS: PCP Family Medicine; Visit Provider Internal Medicine Hematology & Oncology | DX: C34.11 Malignant neoplasm of upper lobe, right bronchus or lung (principal) | CPT/HCPCS: 78815; A9552 ==

== ENCOUNTER 2025-01-04 18:40 | Outpatient (CLI) | payer MEDICARE, BC, SELFPAY ==
--- NOTE | 2025-01-04 19:00 | CRLHL7_ITS ---
For Patients: As a result of the Century Cures Act, medical imaging exams and procedure reports are released immediately into your electronic medical record. You may view this report before your referring provider. If you have questions, please contact your health care provider. INDICATION: Lung cancer, evaluate for intracranial metastasis. TECHNIQUE: Multisequence multiplanar MRI of the brain prior to and following administration of 13 cc Dotarem gadolinium-based intravenous contrast. COMPARISON: MRI brain dated 09/03/2024. FINDINGS: New focus of diffusion restriction within the right parietal lobe (series 3, image 40) consistent with acute ischemia. Additional new diffusion restriction within the right occipital lobe (series 3, image 35) with associated linear cortical T1 hyperintensity and punctate susceptibility artifact. No focus of suspicious contrast enhancement. 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 Additional stable old basal ganglia and left cerebellar lacunar infarcts. Similar scattered foci of T2 prolongation elsewhere within the supratentorial white matter typical of chronic small vessel ischemic changes. Similar mild diffuse parenchymal volume loss. The ventricles are unchanged in size. Flow voids of the larger intracranial arteries are preserved. Normal calvarial bone marrow signal intensity. Symmetric globes. The paranasal sinuses are predominantly clear. A trace left mastoid effusion is again noted. IMPRESSION: 1. New diffusion restriction within the right parietal lobe consistent with acute ischemia. 2. Additional new diffusion restriction within the right occipital lobe with associated cortical T1 hyperintensity and punctate susceptibility artifact, likely reflecting a subacute infarct with laminar necrosis and petechial hemorrhagic conversion. 3. No convincing evidence for intracranial metastasis. 4. Similar mild diffuse parenchymal volume loss and chronic small vessel ischemic changes. 5. Stable chronic infarct within the right frontal cortex and unchanged chronic lacunar infarcts within the basal ganglia and left cerebellum. Dictated by Vineet Gotti MD @ 01/05/2025 9:32:10 AM (Electronically Signed)
== END 2025-01-04 18:41 | disposition home or self-care (01) ==
LOC: MRI 18:40
PROVIDERS: PCP Family Medicine; Visit Provider Internal Medicine Hematology & Oncology
DX: C34.90 Malignant neoplasm of unspecified part of unspecified bronchus or lung (principal); I67.82 Cerebral ischemia; Z86.73 Personal history of transient ischemic attack (TIA), and cerebral infarction without residual deficits
CPT/HCPCS: 70553; A9575

== ENCOUNTER 2025-01-05 16:13 | Emergency (ER) | payer MEDICARE, BC, SELFPAY ==
--- OUTSIDE RECORDS SUMMARY | 2025-01-05 16:16 | XMS_ITS | Clinical Summary ---
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 BIOLOGIST Gender Identity Not on file Sexual Orientation Not on file Last Filed Vital Signs Vital Sign Reading Time Taken Comments Blood Pressure 131/80 10/23/2021 3:00 PM FISHERY BIOLOGIST Pulse 97 10/23/2021 3:00 PM FISHERY BIOLOGIST Temperature - - Respiratory Rate 18 10/23/2021 3:00 PM FISHERY BIOLOGIST Oxygen Saturation 98% 10/23/2021 3:00 PM FISHERY BIOLOGIST Inhaled Oxygen Concentration - - Weight 68.5 kg (151 lb) 10/23/2021 3:00 PM FISHERY BIOLOGIST Height 167.6 cm (5' 6) 10/23/2021 3:00 PM FISHERY BIOLOGIST Body Mass Index 24.37 10/23/2021 3:00 PM FISHERY BIOLOGIST Plan of Treatment Not on file Insurance MEDICARE [facility] MEDICARE SUPPLEMENT Care Teams Junior Estimator Relationship Specialty Start Date End Date Jez Burnham MD PCP - General Family Medicine 10/09/21
--- OUTSIDE RECORDS SUMMARY | 2025-01-05 16:17 | XMS_ITS | Clinical Summary ---
Author Organization [facility] Address [address] [place] [address] Care Team Providers Care Program Scheduler Name Role Phone None Reported, Pcp Primary Care Provider Unavail able Source Comments Patient records contain information from all sites at [facility]. For routine questions regarding patient records, call [phone] during business hours, M-F 8:00 AM - 5:00 PM Central Time. Record requests for emergency care only can be directed to [phone] at any time.[facility] Allergies No known active allergies Medications aspirin 81 mg chewable tablet Chew 1 tablet 2 (two) times a week. 2 days a week 08/02/20 16 Active cholecalciferol (VITAMIN D3) 10 mcg (400 Unit) tablet Take 10 mcg by mouth daily. 08/16/20 21 Active folic acid 1 mg tablet Take 1 tablet by mouth daily. 05/17/20 15 Active metoprolol succinate (TOPROL-XL) 25 mg 24 hr tablet Take 25 mg by mouth daily. 08/07/20 16 Active multivitamin tablet Take 1 tablet by mouth daily. 08/02/20 16 Active nitroglycerin (NITROSTAT) 0.[address] 1 tablet under the tongue as needed. 08/02/20 16 Active thiamine (VITAMIN B1) 100 mg tablet Take 1 tablet by mouth daily. 08/07/20 16 Active atorvastatin (LIPITOR) 40 mg tablet Take 40 mg by mouth daily. 07/25/20 12 Active omega 0-glc-exi-fish oil (fish oil) 1,000 mg (120 mg-180 mg) capsule Take 1 capsule by mouth daily. 08/02/20 16 Active polycarbophil (FiberCon) 625 mg tablet Take 625 mg by mouth daily. Fiber gummy Active tamsulosin (Flomax) 0.4 mg 24 hr capsule Take 0.4 mg by mouth daily. 02/18/20 24 Active bismuth subsalicylate (Pepto-BismoL) 262 mg tablet Take 1 tablet by mouth daily. Active acetaminophen (TylenoL) 500 mg tablet Take 1,000 mg by mouth daily. Active fluconazole (Diflucan) 200 mg tabletIndication s:esophageal candidiasis Take 1 tablet (200 mg total) by mouth daily for 9 doses Indications: esophageal candidiasis. 9 tablet 5 5:38 PM LUBRICATING SPECIALIST 12/30/19 25 2024 Active budesonide (Entocort EC) [address] capsule Take 3 capsules (9 mg total) by mouth daily. 90 capsule 1 01/05/20 25 Active predniSONE (Deltasone) 20 mg tablet Take 4 tablets (80 mg total) by mouth daily. Taper per oncology 120 tablet 1 01/05/20 25 Active sulfamethoxazole -trimethoprim (Bactrim) 400-80 mg per tabletIndication s:Prophylaxis, medical Take 1 tablet by mouth daily Indications: Prophylaxis, medical. Please follow up with Oncology team. 30 tablet 1 01/05/20 25 Active omeprazole (PriLOSEC) [address] capsule Take 1 capsule (20 mg total) by mouth daily. 30 capsule 1 01/05/20 25 Active bismuth subsalicylate (PEPTO BISMOL) 262 mg tablet Take 2 tablets by mouth. 08/10/20 22 2024 Discontinued omeprazole (PriLOSEC) [address] capsule Take 20 mg by mouth daily. 2024 Discontinued(R eorder) Dulera 50-5 mcg/actuation HFA aerosol inhaler as needed. 06/25/20 23 2024 Discontinued(E rror) diclofenac sodium (Voltaren) 75 mg EC tablet Take 1 tablet by mouth 2 (two) times a day. 07/25/20 12 2024 Discontinued lisinopriL 2.5 mg tablet Take 2.5 mg by mouth daily. 08/07/20 16 2024 Discontinued budesonide (Entocort EC) 3 mg 24 hr capsule Take 9 mg by mouth daily. 2024 Discontinued(S top Taking at Discharge) UNABLE TO FIND floragen 2024 Discontinued UNABLE TO FIND Take 1,000 each by mouth once daily. Equate pain reliever 2024 Discontinued UNABLE TO FIND Take 1,275 each by mouth daily. Equate arthritis 2024 Discontinued acetaminophen (TylenoL 8 Hr) 650 mg ER tablet Take 1,300 mg by mouth daily. 2024 Discontinued loperamide (Imodium A-D) 2 mg capsule Take 1 capsule (2 mg total) by mouth 4 (four) times a day as needed for diarrhea. 120 capsule 12/25/192024 Discontinued(S top Taking at Discharge) fluconazole (Diflucan) 200 mg tabletIndication s:esophageal candidiasis Take 1 tablet (200 mg total) by mouth daily for 10 doses Indications: esophageal candidiasis. 10 tablet 12/30/19 25 2024 Discontinued predniSONE (Deltasone) 20 mg tablet Take 6 tablets (120 mg total) by mouth daily. Please follow up with [facility] team for further tapering details. 60 tablet 5 5:38 PM LUBRICATING SPECIALIST 12/30/19 25 2024 Discontinued(R eorder) sulfamethoxazole -trimethoprim (Bactrim) 400-80 mg per tabletIndication s:Prophylaxis, medical Take 1 tablet by mouth daily Indications: Prophylaxis, medical. Please follow up with Oncology team. 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 [facility] 01/01/2025 Clinical Communication Department of Oncology in [place], [place] [address] [place] [phone] Ora Gotti R.N., O.C.N. 12/29/2024 Clinical Communication Department of Oncology in [place], [place] [address] [place] [phone] Keyonna Cavazos APRN, C.N.Sonido, M.S.N. 12/28/2024 Clinical Communication Department of Oncology in [place], [place] [address] [place] [phone] Kurt Shah Jr., M.D., M.B.A. 12/24/2024 2:02 PM LUBRICATING SPECIALIST Anesthesia Event Division of Gastroenterology in [place], [place] [address] [place] [phone] Parveen Amor APRN, CRNA, D.N.P. 12/24/2024 2:00 PM LUBRICATING SPECIALIST Ancillary Procedure Department of Gastroenterology 12/24/2024 1:55 PM LUBRICATING SPECIALIST Ancillary Procedure Department of Gastroenterology 12/23/2024 Clinical Communication Division of Gastroenterology in [place], [place] [address] [place] [phone] Ambika Nguyễn M.D. 12/21/2024 7:57 PM LUBRICATING SPECIALIST - 12/29/2024 5:52 PM LUBRICATING SPECIALIST Hospital Encounter [facility] [address] [place] [phone] Bismark Bentley M.D. Ravi, Karthik, M.D. 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 No 12/21/2024 Humiliation, Afraid, Rape, and Kick questionnair e Answer Date Recorded Within the last year, have y ou been afraid of your partner or ex-partner? No 12/21/2024 Within the last year, have y ou been humiliated or emotionally abused in other ways by your partner or ex-partner? No Within the last year, have y ou been kicked, hit, slapped, or otherwise physically hurt by your partner or ex-partner? No 12/21/2024 Within the last year, have y ou been raped or forced to have any kind of sexual activity by your partner or ex-partner? No 12/21/2024 Exercise Vital Sign Answer Date Recorde d [...] the money to buy more. Never true 12/21/19 25 Within the past 12 months, t he food you bought just didn't last and you didn't have money to get more. Never true 12/21/2024 PRAPARE - Transportation Answer Date Re corded In the past 12 months, has l ack of transportation kept you from medical appointments or from getting medications? No 01/2025 In the past 12 months, has l ack of transportation kept you from meetings, work, or from getting things needed for daily living? No 12/21/2024 Nutrition Answer Date Recorded On average, how many serving s of fruits and vegetables do you eat per day (serving size is equal to 1 cup or approximately the size of a tennis ball)? 3-5 07/06/2024 Dental Answer Date Recorded Dental: Regular Dentist Yes 07/06/20 Employment Answer Date Recorded Employment status Retired 07/06/2024 Housing Stability Answer Date Recorded What is your living situation today? I have a [facility] place to live 12/21/2024 Sex and Gender Information Value Date Recorded Sex Assigned at Male 07/11/2024 2:15 PM CDT Legal Sex Male 9:12 AM LUBRICATING SPECIALIST Gender Identity Male 07/11/2024 2:15 PM CDT Sexual Orientation Straight 07/11/2024 2: 15 PM CDT Last Filed Vital Signs Vital Sign Reading Time Taken Comments Blood Pressure 120/70 01/05/2025 9:50 AM LUBRICATING SPECIALIST Pulse 83 01/05/2025 9:50 AM LUBRICATING SPECIALIST Temperature 36.8 C (98.2 F) 01/05/2025 9:50 AM LUBRICATING SPECIALIST Respiratory Rate 18 12/29/2024 4:35 PM LUBRICATING SPECIALIST Oxygen Saturation 97% 01/05/2025 9:50 AM LUBRICATING SPECIALIST Inhaled Oxygen Concentration - - Weight 67.3 kg (148 lb 5.9 oz) 01/05/2025 9:50 A M LUBRICATING SPECIALIST Height 162.6 cm (5' 4.02) 12/28/2024 10:[address] Body Mass Index 25.45 12/28/2024 10:26 AM LUBRICATING SPECIALIST Plan of Treatment Health Maintenance Due Date Last Done Comments CT Colonography 1955 Cologuard 1955 FIT 1955 Lipid (Cholesterol) Screening 1954 RSV vaccine - (32-36 weeks) or 60+ years (1 - Risk 60-74 years 1-dose series) 2014 Depression Screening (Annual PHQ-2) 11/18/2024 COVID-19 Vaccine (7 - Moderna risk 2023- season) 2025 09/10/2024, 09/07/2023, 09/13/2022, Additional history exists Fasting Glucose for Diabetes Screening 12/29/2027 12/29/2024, 12/28/2024, 12/28/2024, Additional history exists DTaP,Tdap,and Td Vaccines (3 - Td or Tdap) 08/16/2031 08/16/2021, 02/27/2012, 12/25/2005 Colonoscopy 12/24/2034 12/24/2024, 04/2025, 07/10/2024, Additional history exists Colorectal Cancer Screening 12/24/2034 Abdominal Aortic Aneurysm (AAA) Screen Completed 08/04/2016, 08/03/2016 Zoster Vaccines Completed 12/10/2018, 09/18, 09/21/2014 Hepatitis C Screening Completed 07/07/2024, 016 Influenza Vaccine Completed 09/10/2024, , 08/29/2022, Additional history exists Pneumococcal vaccine (50+ years) Completed 12/04/2024, 05/08/2013 Fall Risk Screen (Annual) Completed 12/24/2024 HPV Vaccines Aged Out No longer eligi ble based on patient's age to complete this topic IPV Vaccines Aged Out No longer eligi ble based on patient's age to complete this topic Procedures Procedure Name Priority Date/Time Associated Diagnosis Comments RENAL FUNCTION PANEL, S Routine 12/29/2024 7:25 AM LUBRICATING SPECIALIST MAGNESIUM, S Routine 12/29/2024 7:25 AM LUBRICATING SPECIALIST CBC WITH DIFFERENTIAL, B Routine 12/29/2024 7:25 AM LUBRICATING SPECIALIST BASIC METABOLIC PANEL, S/P Timed 12/28/2024 4:08 PM LUBRICATING SPECIALIST RENAL FUNCTION PANEL, S Routine 12/28/2024 5:52 AM LUBRICATING SPECIALIST MAGNESIUM, S Routine 12/28/2024 5:52 AM LUBRICATING SPECIALIST CBC WITH DIFFERENTIAL, B Routine 12/28/2024 5:52 AM LUBRICATING SPECIALIST QUANTIFERON-TB GOLD PLUS, B Routine 12/28/2024 5:52 AM LUBRICATING SPECIALIST RENAL FUNCTION PANEL, S Routine 12/27/2024 8:11 AM LUBRICATING SPECIALIST MAGNESIUM, S Routine 12/27/2024 8:11 AM LUBRICATING SPECIALIST CBC WITH DIFFERENTIAL, B Routine 12/27/2024 8:11 AM LUBRICATING SPECIALIST ECG Routine 12/26/2024 12:55 PM LUBRICATING SPECIALIST RENAL FUNCTION PANEL, S Routine 12/26/2024 9:31 AM LUBRICATING SPECIALIST MAGNESIUM, S Routine 12/26/2024 9:31 AM LUBRICATING SPECIALIST CBC WITH DIFFERENTIAL, B Routine 12/26/2024 9:31 AM LUBRICATING SPECIALIST HBS ANTIBODY, SERUM Routine 12/26/2024 9 :31 AM LUBRICATING SPECIALIST HEPATITIS B SURFACE ANTIGEN Routine 12/26/2024 9:31 AM LUBRICATING SPECIALIST HBC TOTAL AB, SERUM Routine 12/26/2024 9 :31 AM LUBRICATING SPECIALIST RENAL FUNCTION PANEL, S Routine 12/25/2024 6:42 AM LUBRICATING SPECIALIST MAGNESIUM, S Routine 12/25/2024 6:42 AM LUBRICATING SPECIALIST CBC WITH DIFFERENTIAL, B Routine 12/25/2024 6:42 AM LUBRICATING SPECIALIST FUNGAL CULTURE, ROUTINE Routine 12/24/2024 2:19 PM LUBRICATING SPECIALIST FUNGAL SMEAR Routine 12/24/2024 2:19 PM LUBRICATING SPECIALIST SURGICAL PATHOLOGY Routine 12/24/2024 2: 08 PM LUBRICATING SPECIALIST GASTROENTEROLOGY IMAGE EXAM Routine 12/24/2024 2:00 PM LUBRICATING SPECIALIST GASTROENTEROLOGY IMAGE EXAM Routine 12/24/2024 1:55 PM LUBRICATING SPECIALIST COLONOSCOPY Routine 12/24/2024 1:52 PM LUBRICATING SPECIALIST COLONOSCOPY Routine 12/24/2024 1:52 PM LUBRICATING SPECIALIST UPPER GI ENDOSCOPY Routine 12/24/2024 1: 52 PM LUBRICATING SPECIALIST EGD (ESOPHAGEALGASTRODUODE NOSCOPY) Routine 12/24/2024 1:52 PM LUBRICATING SPECIALIST RENAL FUNCTION PANEL, S Routine 12/24/2024 8:41 AM LUBRICATING SPECIALIST MAGNESIUM, S Routine 12/24/2024 8:41 AM LUBRICATING SPECIALIST CBC WITH DIFFERENTIAL, B Routine 12/24/2024 8:41 AM LUBRICATING SPECIALIST RENAL FUNCTION PANEL, S Routine 12/23/2024 6:54 AM LUBRICATING SPECIALIST MAGNESIUM, S Routine 12/23/2024 6:54 AM LUBRICATING SPECIALIST CBC WITH DIFFERENTIAL, B Routine 12/23/2024 6:54 AM LUBRICATING SPECIALIST RENAL FUNCTION PANEL, S Routine 12/22/2024 10:45 AM LUBRICATING SPECIALIST MAGNESIUM, S Routine 12/22/2024 10:45 AM LUBRICATING SPECIALIST CBC WITH DIFFERENTIAL, B Routine 12/22/2024 10:45 AM LUBRICATING SPECIALIST GI PATHOGEN PANEL, PCR, F Routine 12/22/2024 12:48 AM LUBRICATING SPECIALIST DX ABDOMEN PORTABLE ANTERIOR POSTERIOR 1 VIEW RAD - Routine (most inpatients and all outpatients) 12/21/2024 11:59 PM LUBRICATING SPECIALIST ECG Routine 12/21/2024 11:48 PM LUBRICATING SPECIALIST BACTERIA / SIMONA CULTURE, BLOOD STAT 12/21/2024 9:12 PM LUBRICATING SPECIALIST HEPATIC FUNCTION PANEL, S STAT 12/21/2024 9:00 PM LUBRICATING SPECIALIST BASIC METABOLIC PANEL, S/P STAT 12/21/2024 9:00 PM LUBRICATING SPECIALIST BACTERIA / SIMONA CULTURE, BLOOD STAT 12/21/2024 9:00 PM LUBRICATING SPECIALIST LACTATE FOR SEPSIS WITH REFLEX STAT 12/21/2024 8:59 PM LUBRICATING SPECIALIST CBC WITH DIFFERENTIAL, B STAT 12/21/2024 8:59 PM LUBRICATING SPECIALIST THYROID FUNCTION CASCADE, S Routine 12/21/2024 8:53 PM LUBRICATING SPECIALIST OUTSIDE DX GENERAL Routine 12/15/2024 1: 40 PM LUBRICATING SPECIALIST OUTSIDE DX CHEST Routine 12/15/2024 1:35 PM LUBRICATING SPECIALIST HCV AB SCRN W/REFLEX TO HCV PCR, S Routine 07/07/2024 2:56 PM CDT 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 Colitis Collagenous US ABDOMEN COMPLETE WITH LIVER DOPPLER Routine 08/04/2016 8:08 AM CDT from Last 3 Months or Most Recently Relevant to Health Maintenance Results * (ABNORMAL) Renal Function Panel (12/29/2024 7:25 AM LUBRICATING SPECIALIST) Only the most recent of8 resultswithin the time period is included. Potassium, S 4.7 3.6 - 5.2 mmol/L 12/29/2024 8:41 AM LUBRICATING SPECIALIST DTL Sodium, S 138 135 - 145 mmol/L 12/29/2024 8:41 AM LUBRICATING SPECIALIST DTL Chloride, S 105 98 - 107 mmol/L 12/29/2024 8:41 AM LUBRICATING SPECIALIST DTL Bicarbonate, S 25 22 - 29 mmol/L 12/29/2024 8:41 AM LUBRICATING SPECIALIST DTL Anion Gap 8 7 - 15 12/29/2024 8:41 AM LUBRICATING SPECIALIST DTL BUN (Blood Urea Nitrogen), S 20 8 - 24 mg/dL 12/29/2024 8:41 AM LUBRICATING SPECIALIST DTL Creatinine 1.30 0.74 - 1.35 mg/dL 12/29/2024 8:41 AM LUBRICATING SPECIALIST DTL Estimated GFR (eGFR) 59(L) >=60 mL/min/BSA 12/29/2024 8:41 AM LUBRICATING SPECIALIST DTL Comment: Estimated GFR calculated using the 2020 CKD_EPI creatinine equation. Calcium, Total, S 7.9(L) 8.8 - 10.2 mg/dL 12/29/2024 8:41 AM LUBRICATING SPECIALIST DTL Glucose, S 131 70 - 140 mg/dL 12/29/2024 8:41 AM LUBRICATING SPECIALIST DTL Albumin, S 2.9(L) 3.5 - 5.0 g/dL 12/29/2024 8:41 AM LUBRICATING SPECIALIST DTL Phosphorus (Inorganic), S 2.1(L) 2.5 - 4.5 mg/dL 12/29/2024 8:41 AM LUBRICATING SPECIALIST DTL Blood (Blood, Venous) 12/29/2024 7:25 AM LUBRICATING SPECIALIST 12/29/2024 8:03 AM LUBRICATING SPECIALIST us Justyn Torrez M.D. LAB BLOOD ADD-ON Final Result [facility] [place] [address] [place] [address], [facility] [address] [place] [address] * (ABNORMAL) CBC with Differential, Blood (12/29/2024 7:25 AM LUBRICATING SPECIALIST) Only the most recent of9 resultswithin the time period is included. Hemoglobin 9.8(L) 13.2 - 16.6 g/dL 12/29/2024 8:16 AM LUBRICATING SPECIALIST DTL Hematocrit 29.0(L) 38.3 - 48.6 % 12/29/2024 8:16 AM LUBRICATING SPECIALIST DTL Erythrocytes 2.96(L) 4.35 - 5.65 x10(12)/L 12/29/2024 8:16 AM LUBRICATING SPECIALIST DTL MCV 98.0(H) 78.2 - 97.9 fL 12/29/2024 8:16 AM LUBRICATING SPECIALIST DTL RBC Distrib Width 14.1 11.8 - 14.5 % 12/29/2024 8:16 AM LUBRICATING SPECIALIST DTL Platelet Count 162 135 - 317 x10(9)/L 12/29/2024 8:16 AM LUBRICATING SPECIALIST DTL Leukocytes 7.0 3.4 - 9.6 x10(9)/L 12/29/2024 8:16 AM LUBRICATING SPECIALIST DTL Neutrophils 6.34 1.56 - 6.45 x10(9)/L 12/29/2024 8:16 AM LUBRICATING SPECIALIST [facility] Lymphocytes 0.43(L) 0.95 - 3.07 x10(9)/L 12/29/2024 8:16 AM LUBRICATING SPECIALIST DTL Monocytes 0.25(L) 0.26 - 0.81 x10(9)/L 12/29/2024 8:16 AM LUBRICATING SPECIALIST DTL Eosinophils <0.03 0.03 - 0.48 x10(9)/L 12/29/2024 8:16 AM LUBRICATING SPECIALIST DTL Basophils <0.03 0.01 - 0.08 x10(9)/L 12/29/2024 8:16 AM LUBRICATING SPECIALIST DTL Blood (Blood, Venous) 12/29/2024 7:25 AM LUBRICATING SPECIALIST 12/29/2024 7:56 AM LUBRICATING SPECIALIST us Justyn Torrez M.D. LAB BLOOD ADD-ON Final Result [facility] [place] [address] [place] [address], [facility] DTL [facility] [address] [place] [address] [facility] [address] [place] [address] * Magnesium (12/29/2024 7:25 AM LUBRICATING SPECIALIST) Only the most recent of8 resultswithin the time period is included. Magnesium, S 1.7 1.7 - 2.3 mg/dL 12/29/2024 8:41 AM LUBRICATING SPECIALIST DTL Blood (Blood, Venous) 12/29/2024 7:25 AM LUBRICATING SPECIALIST 12/29/2024 8:03 AM LUBRICATING SPECIALIST us Justyn Torrez M.D. LAB BLOOD ADD-ON Final Result [facility] [place] [address] [place] [address], [facility] DTL [facility] [address] [place] [address] * (ABNORMAL) Basic Metabolic Panel (12/28/2024 4:08 PM LUBRICATING SPECIALIST) Only the most recent of2 resultswithin the time period is included. Pathologist [facility] Potassium, S 3.7 3.6 - 5.2 mmol/L 12/28/2024 4:57 PM LUBRICATING SPECIALIST DTL Sodium, S 138 135 - 145 mmol/L 12/28/2024 4:57 PM LUBRICATING SPECIALIST DTL Chloride, S 104 98 - 107 mmol/L 12/28/2024 4:57 PM LUBRICATING SPECIALIST DTL Bicarbonate, S 24 22 - 29 mmol/L 12/28/2024 4:57 PM LUBRICATING SPECIALIST DTL Anion Gap 10 7 - 15 12/28/2024 4:57 PM LUBRICATING SPECIALIST DTL BUN (Blood Urea Nitrogen), S 15 8 - 24 mg/dL 12/28/2024 4:57 PM LUBRICATING SPECIALIST DTL Creatinine 1.34 0.74 - 1.35 mg/dL 12/28/2024 4:57 PM LUBRICATING SPECIALIST DTL Estimated GFR (eGFR) 57(L) >=60 mL/min/BSA 12/28/2024 4:57 PM LUBRICATING SPECIALIST DTL Comment: Estimated GFR calculated using the 2020 CKD_EPI creatinine equation. Calcium, Total, S 8.0(L) 8.8 - 10.2 mg/dL 12/28/2024 4:57 PM LUBRICATING SPECIALIST DTL Glucose, S 137 70 - 140 mg/dL 12/28/2024 4:57 PM LUBRICATING SPECIALIST DTL Blood (Blood, Venous) 12/28/2024 4:08 PM LUBRICATING SPECIALIST 12/28/2024 4:39 PM LUBRICATING SPECIALIST us Faviola Caraballo M.D. LAB BLOOD ADD-ON Final Result [facility] [place] [address] [place] [address], [place] DTL [facility] [address] [place] [address] * QuantiFERON-Tb Gold Plus, Blood (12/28/2024 5:52 AM LUBRICATING SPECIALIST) [facility] QuantiFERON-TB Gold Plus Result Negative Negative 12/29/2024 10:23 AM LUBRICATING SPECIALIST [facility] Comment: No interferon-gamma response to M. tuberculosis antigens was detected. Latent infection with M. tuberculosis is unlikely. A single negative result does not exclude infection with M. tuberculosis. In patients at high risk for M.tuberculosis infection, a second test should be considered in accordance with the 2017 ATS/IDSA/CDC Clinical Practice Guidelines for Diagnosis of Tuberculosis in Adults and Children [Maria Isabel QUISPE et. al. Clin. Infect. Dis. 2017;64(2):111-115]. The reference range for the 'TB1 Ag minus Nil Result' and 'TB2 Ag minus Nil Result' is an Interferon-gamma level <0.35 IU/mL. TB1 Ag minus Nil Result 0.02 IU/mL 12/29/2024 10:23 AM LUBRICATING SPECIALIST SDSC TB2 Ag minus Nil Result 0.01 IU/mL 12/29/2024 10:23 AM LUBRICATING SPECIALIST [facility] Mitogen minus Nil Result 0.72 IU/mL 12/29/2024 10:23 AM LUBRICATING SPECIALIST SDSC Nil Result 0.01 IU/mL 12/29/2024 10:23 AM LUBRICATING SPECIALIST [facility] Blood (Blood, Venous) 12/28/2024 5:52 AM LUBRICATING SPECIALIST 12/28/2024 8:15 AM LUBRICATING SPECIALIST Narrative [facility] - 12/29/2024 10:23 AM LUBRICATING SPECIALIST Specimen Information: Specimen ID: [id number] Specimen Type: Blood Specimen Collection Start Date: 12/28/2024 5:52 AM Specimen Received Date: 12/28/2024 8:15 AM Specimen ID: [id number] Specimen Type: Blood Specimen Collection Start Date: 12/28/2024 5:52 AM Specimen Received Date: 12/28/2024 8:15 AM Specimen ID: [id number] Specimen Type: Blood Specimen Collection Start Date: 12/28/2024 5:52 AM Specimen Received Date: 12/28/2024 8:15 AM Specimen ID: [id number] Specimen Type: Blood Specimen Collection Start Date: 12/28/2024 5:52 AM Specimen Received Date: 12/28/2024 8:15 AM Yudi Motley M.D. LAB MICROBIOLOGY - BLOOD ORD ERABLES Final Result Performing Organization Address [facility] de Phone Number [facility] [address] [place] [address] [facility] [address] [place] [address] * ECG 12 Lead (12/26/2024 12:55 PM LUBRICATING SPECIALIST) Ventricular Rate ECG/Min 79 BPM MUSE MS Interval 132 ms MUSE QRSD Interval 86 ms MUSE QT Interval 384 ms MUSE QTC Interval 440 ms MUSE P [place] 27 degrees MUSE R [place] 32 degrees MUSE T Wave [place] 26 degrees MUSE 12/26/2024 12:5 5 PM LUBRICATING SPECIALIST 12/26/2024 12:59 PM LUBRICATING SPECIALIST Impressions MUSE - 12/26/2024 12:59 PM LUBRICATING SPECIALIST Normal sinus rhythm Normal ECG When compared with ECG of 21-Dec-2024 23:48, No significant change was found Reviewed by JERED García Narrative Procedure Note Justino Sosa M.D. - 12/26/2024 IMPRESSION: Normal sinus rhythm Normal ECG When compared with ECG of 21-Dec-2024 23:48, No significant change was found Reviewed by JERED García Yudi Motley M.D. ECG ORDERABLES Final Result Performing Organization Address [facility] Co de Phone Number MUSE NA * HBc Total Ab, Serum (12/26/2024 9:31 AM LUBRICATING SPECIALIST) Pathologist [facility] HBc Total Ab, S Negative Negative 12/26/2024 2:23 PM LUBRICATING SPECIALIST [facility] Blood (Blood, Venous) 12/26/2024 9:31 AM LUBRICATING SPECIALIST 12/26/2024 12:27 PM LUBRICATING SPECIALIST Pina Dorado M.D., M.P.H. LAB MICROBIOLOGY - BLOOD ORDERABLES Final Result [facility] [address] [place] [address] [facility] [address] [place] [address] * HBs Antibody, Serum (12/26/2024 9:31 AM LUBRICATING SPECIALIST) HBs Antibody, S Negative 2:23 PM LUBRICATING SPECIALIST [facility] Comment: Patient is NOT immune to HBV infection. Consumption of high-dose biotin supplement within 12 hours of blood collection for this test can cause false-negative results. ----REFERENCE VALUE---- Unvaccinated: Negative Vaccinated: Positive HBs Antibody, Quantitative, S <3.5 mIU/mL 12/26/2024 2:23 PM LUBRICATING SPECIALIST [facility] Comment: ----REFERENCE VALUE---- Unvaccinated: <8.5 mIU/mL Vaccinated: >=11.5 mIU/mL Blood (Blood, Venous) 12/26/2024 9:31 AM LUBRICATING SPECIALIST 12/26/2024 12:27 PM LUBRICATING SPECIALIST us Pina Dorado M.D., M.P.H. LAB MICROBIOLOGY - BLOOD ORDERABLES Final Result Performing Organization Address City/[facility]/ZIP Co de Phone Number [facility] [address] [place] [address] [facility] [address] [place] [address] * Hepatitis B Surface Antigen (12/26/2024 9:31 AM LUBRICATING SPECIALIST) HBs Antigen, S Negative Negative 12/26/2024 2:23 PM LUBRICATING SPECIALIST [facility] Blood (Blood, Venous) 12/26/2024 9:31 AM LUBRICATING SPECIALIST 12/26/2024 12:27 PM LUBRICATING SPECIALIST us Pina Dorado M.D., M.P.H. LAB MICROBIOLOGY - BLOOD ORDERABLES Final Result Performing Organization Address City/[facility]/ZIP Co de Phone Number [facility] [address] [place] [address] [facility] [address] [place] [address] * (ABNORMAL) Fungal Smear (12/24/2024 2:19 PM LUBRICATING SPECIALIST) Fungal Smear YEAST and PSEUDOHYPH AE(A) 12/24/2024 10:20 PM LUBRICATING SPECIALIST DTL [place] (Esophagus) 12/24/2024 2:19 PM LUBRICATING SPECIALIST Magen Borrego M.D. LAB MICROBIOLOGY - GENERAL O RDERABLES Final Result [facility] [place] [address] [place] [address], [facility] [address] [place] [address] * Surgical Pathology (12/24/2024 2:08 PM LUBRICATING SPECIALIST) 12/25/2024 2:29 PM LUBRICATING SPECIALIST DTL Participated in the Interpretation Urbano Reno M.D.-Pathology Fellow 12/25/2024 2:29 PM LUBRICATING SPECIALIST DTL Report electronically signed by Mundo Darby M.D. I verify that I have examined all relevant slides/materials for the specimen(s) and rendered or confirmed the diagnosis. 12/25/2024 2:29 PM LUBRICATING SPECIALIST DTL Gross Description A: Received in formalin labeled with patient's name, medical record number and duodenum, second part duodenum, first part duodenumare nine pale elizondo-pink irregular soft tissues, ranging from 0.1-0.4 cm in greatest dimension. Specimens are submitted en toto in cassetteA1. Grossed by LMB. B: Received in formalin labeled with patient's name, medical record number and stomach, antrum, body of stomach, incisura are sixpale elizondo-pink irregular soft tissues, ranging from 0.1-0.4 cm in greatest dimension. Specimens are submitted en toto in cassette B1.Grossed by LMB. C: Received in formalin labeled with patient's name, medical record number and ileum, terminal ileum, dinah-terminal ileum are three paletan-pink irregular soft tissues, ranging from 0.2-0.5 cm in greatest dimension. Specimens are submitted en toto in cassette C1. Grossedby LMB. D: Received in formalin labeled with patient's name, medical record number and colon, random sites (colon) are Ten pale elizondo irregularsoft tissues, ranging from 0.2-0.5 cm in greatest dimension. Specimens are submitted en toto in cassette D1. Grossed by LMB. E: Received in formalin labeled with patient's name, medical record number and colon-polyp, sigmoid are three pale elizondo irregular softtissues admixed with a small amount of probable debris, ranging from 0.4-0.6 cm in greatest dimension. Specimens are submitted en totoin cassette E1. Grossed by LMB. 12/25/2024 2:29 PM LUBRICATING SPECIALIST DTL Addendum CMV immunostain, (blocks A1, B1, C1 and D1), H. pylori immunostain (block B1), and AFB and GMS special stains (block D1) are all negative for microorganisms. Signed by Mundo Darby M.D. 12/29/2024 1:31 PM This test was developed using an analyte specific reagent. Its performance characteristics were determined by [facility] in a manner consistent with CLIA requirements. This test has not been cleared or approved by the U.S. Food and Drug Administration. 12/29/2024 1:31 PM LUBRICATING SPECIALIST DTL Comment:REVISED RESULTS Interpretation FINAL DIAGNOSIS A. Duodenum, 1st and 2nd parts, endoscopic biopsy: Moderately active chronic duodenitis without granulomas or dysplasia. An immunostain for CMV is pending and will be reported separately in an addendum. See comment. B. Stomach; Antrum, Body, and Incisura; endoscopic biopsy: Antral and fundic mucosa with patchy chronic gastritis and rare activity. Negative for intestinal metaplasia and dysplasia. Immunostains for H. pylori and CMV pending and will be reported separately in an addendum. See comment. C. Ileum, Dniah-terminal ileum, endoscopic biopsy: Moderately active chronic ileitis with markedly increased crypt apoptosis. Single, poorly-formed granuloma present in lamina propria. Negative for dysplasia. Immunostains for CMV pending and will be reported separately in an addendum. See comment. D. Colon, Random Sites, endoscopic biopsy: Focal moderately active colitis with patchy increased crypt apoptosis. Single, well-formed granuloma present in lamina propria. Negative for dysplasia. CMV, GMS, and AFB stains are pending and will be reported separately in an addendum. See comment. E. Colon, Sigmoid, polyp, endoscopic biopsy: Tubular adenoma (low-grade dysplasia). COMMENT The above-described findings are overall nonspecific, though in the context of this patient's prior immune checkpoint inhibitor (ICI) therapy are compatible with delayed ICI-related gastroenterocoliti s, provided that other etiologies, including infection, have been excluded. Digital imaging was used in the diagnostic assessment of this case. 12/29/2024 1:31 PM LUBRICATING SPECIALIST DTL Biopsy (Duodenum) 12/24/2024 2:08 PM LUBRICATING SPECIALIST Biopsy (Stomach) 12/24/2024 2:09 PM LUBRICATING SPECIALIST Biopsy (Ileum) 12/24/2024 2: 27 PM LUBRICATING SPECIALIST Biopsy (Colon) 12/24/2024 2: 30 PM LUBRICATING SPECIALIST Polyp (Colon) 12/24/2024 2:3 6 PM LUBRICATING SPECIALIST us Magen Borrego M.D. LAB SURG PATH ORDERABLES Juan marta Result - Final Performing Organization Address City/[facility] Co de Phone Number [facility] [place] [address] [place] [address], [facility] DTL [address] [place] [address] * Colonoscopy-Gastroenterology Image Exam (12/24/2024 2:00 PM LUBRICATING SPECIALIST) Only the most recent of2 resultswithin the time period is included. 12/24/2024 1:52 PM LUBRICATING SPECIALIST Narrative [facility] - 12/24/2024 2:50 PM LUBRICATING SPECIALIST This order has been created and auto-finalized to support the import of images acquired without order. The clinical documentation to support these images can be found on the encounter that produced images. us Provider Not In System IMG NON RAD IMAGING PROCE DURES Final Result Performing Organization Address City/[facility] Co de Phone Number [facility] NA * Colonoscopy (12/24/2024 1:52 PM LUBRICATING SPECIALIST) 12/24/2024 1:52 PM LUBRICATING SPECIALIST [facility]ressions [facility] - 12/24/2024 2:45 PM LUBRICATING SPECIALIST Post-op Diagnoses: - Preparation of the colon was inadequate. - Decreased sphincter tone found on digital rectal exam. - Non-bleeding external hemorrhoids. - Non-bleeding internal hemorrhoids. - One 8 mm polyp in the sigmoid colon, removed with a cold snare. Resected and retrieved. - Patchy granularity/micronodularity in the entire examined colon. Biopsied. - Patent end-to-side ileo-colonic anastomosis, characterized by healthy appearing mucosa. - The examined portion of the ileum was normal. Biopsied. Narrative [facility] - 12/24/2024 2:45 PM LUBRICATING SPECIALIST [facility] 6 GI GI Patient Name: Cr Castrejon Date of : 1955 Age: 69 Procedure Date: 12/24/2024 Procedure: Colonoscopy Providers: Magen Borrego MD Referring Provider: Pina Dorado Pre-op Diagnoses: Chronic diarrhea, Clinically significant diarrhea of unexplained origin Recommendation: - Discharge patient to home. - Await pathology results. - Prep not adequate to detect small or flat polyps. Findings: The digital rectal exam findings include decreased sphincter tone. Non-bleeding external hemorrhoids were found. The hemorrhoids were medium-sized. Non-bleeding internal hemorrhoids were found during retroflexion. The hemorrhoids were medium-sized. An 8 mm polyp was found in the sigmoid colon. The polyp was sessile. The polyp was removed with a cold snare. Resection and retrieval were complete. Verification of patient identification for the specimen was done. Estimated blood loss was minimal. A patchy areas of granular/micronodular mucosa was found in the entire colon. Biopsies were taken with a cold forceps for histology. Estimated blood loss was minimal. There was evidence of a prior end-to-side ileo-colonic anastomosis in the ascending colon. This was patent and was characterized by healthy appearing mucosa. The anastomosis was traversed. The dinah-terminal ileum appeared normal. Biopsies were taken with a cold forceps for histology. Estimated blood loss was minimal. Procedural Details: The patient was seen, evaluated, history reviewed, airway and heart-lung exams were performed by licensed provider and were satisfactory for planned level of sedation care. The risks, benefits and alternatives for the procedure and sedation were discussed and informed consent was obtained. A procedural pause was conducted in the presence of assisting personnel to verify the correct patient identity and procedure to be performed. Throughout the procedure, the patient's blood pressure, pulse, and oxygen saturations were monitored continuously. The Pediatric Colonoscope was introduced under direct vision through the anus and advanced to 7 cm into the ileum. The colonoscopy was performed without difficulty. The patient tolerated the procedure well. The quality of the bowel preparation was evaluated using the BBPS (Burton Bowel Preparation Scale) with scores of: Right Colon = 1 (portion of mucosa seen, but other areas not well seen due to staining, residual stool and/or opaque liquid), Transverse Colon = 1 (portion of mucosa seen, but other areas not well seen due to staining, residual stool and/or opaque liquid) and Left Colon = 2 (minor amount of residual staining, small fragments of stool and/or opaque liquid, but mucosa seen well). The total BBPS score equals 4. The quality of the bowel preparation was inadequate. Estimated Blood Loss: Estimated blood loss was minimal. Complications: No immediate complications. Sedation: Anesthesia was administered by an anesthesia professional. The following parameters were monitored: oxygen saturation, heart rate, blood pressure, respiratory rate, EKG, adequacy of pulmonary ventilation, and response to care. Attending Participation: I personally performed the entire procedure. Dr. Magen Borrego MD 12/24/2024 2:45:11 PM This report has been signed electronically. Number of Addenda: 0 us Pina Dorado M.D., M.P.H. GI PROCEDURE ORDERA BLES Final Result [facility] NA * Upper GI Endoscopy (12/24/2024 1:52 PM LUBRICATING SPECIALIST) 12/24/2024 1:52 PM LUBRICATING SPECIALIST Impressions [facility] - 12/24/2024 2:20 PM LUBRICATING SPECIALIST Post-op Diagnoses: - Esophagogastric landmarks identified. - Esophageal plaques were found, suspicious for candidiasis. Brushings performed. - Normal stomach. Biopsied. - Mucosal changes in the duodenum with mild atrophy and nodularity. Biopsied. Narrative [facility] - 12/24/2024 2:20 PM LUBRICATING SPECIALIST [facility] 6 GI GI Patient Name: Cr Castrejon Date of : 1955 Age: 69 Procedure Date: 12/24/2024 Procedure: Upper GI endoscopy Providers: Magen Borrego MD Referring Provider: Pina Dorado Pre-op Diagnoses: Diarrhea Recommendation: - Return [facility] to [facility]. - Await pathology results. Findings: Esophagogastric landmarks were identified: the Z-line was found at 41 cm, the upper extent of the gastric folds was found at 41 cm and the site of hiatal narrowing was found at 41 cm from the incisors. Patchy, yellow plaques were found in the entire esophagus. Brushings for NIEVES prep were obtained in the entire esophagus. Verification of patient identification for the specimen was done. Estimated blood loss was minimal. The entire examined stomach was normal. Biopsies were taken with a cold forceps for histology. Verification of patient identification for the specimen was done. Estimated blood loss was minimal. Diffuse mild mucosal changes characterized by atrophy and nodularity were found in the duodenal bulb and in the second portion of the duodenum. Biopsies were taken with a cold forceps for histology. Estimated blood loss was minimal. Procedural Details: The patient was seen, evaluated, history reviewed, airway and heart-lung exams were performed by licensed provider and were satisfactory for planned level of sedation care. The risks, benefits and alternatives for the procedure and sedation were discussed and informed consent was obtained. A procedural pause was conducted in the presence of assisting personnel to verify the correct patient identity and procedure to be performed. Throughout the procedure, the patient's blood pressure, pulse, and oxygen saturations were monitored continuously. The Gastroscope was introduced under direct vision through the mouth, and advanced to the second part of duodenum. The upper GI endoscopy was accomplished without difficulty. The patient tolerated the procedure well. Estimated Blood Loss: Estimated blood loss was minimal. Complications: No immediate complications. Sedation: Anesthesia was administered by an anesthesia professional. The following parameters were monitored: oxygen saturation, heart rate, blood pressure, respiratory rate, EKG, adequacy of pulmonary ventilation, and response to care. Attending Participation: I personally performed the entire procedure. Dr. Magen Borrego MD 12/24/2024 2:20:32 PM This report has been signed electronically. Number of Addenda: 0 us Pina Dorado M.D., M.P.H. GI PROCEDURE ORDERA BLES Final Result [facility] * GI Pathogen Panel, PCR, Feces (12/22/2024 12:48 AM LUBRICATING SPECIALIST) Specimen Source STOOL 6:23 AM LUBRICATING SPECIALIST DTL Campylobacter species Negative Negative 12/22/2024 6:23 AM LUBRICATING SPECIALIST DTL C. difficile toxin Negative Negative 2024 6:23 AM LUBRICATING SPECIALIST DTL Plesiomonas shigelloides Negative Negative 12/22/2024 6:23 AM LUBRICATING SPECIALIST DTL Salmonella species Negative Negative 2024 6:23 AM LUBRICATING SPECIALIST DTL Vibrio species Negative Negative 12/22/2024 6:23 AM LUBRICATING SPECIALIST DTL Vibrio cholerae Negative Negative 6:23 AM LUBRICATING SPECIALIST DTL Yersinia species Negative Negative 12/22/19 6:23 AM LUBRICATING SPECIALIST DTL Enteroaggregative E. coli (EAEC) Negative Negative 12/22/2024 6:23 AM LUBRICATING SPECIALIST DTL Enteropathogenic E. coli (EPEC) Negative Negative 12/22/2024 6:23 AM LUBRICATING SPECIALIST DTL Enterotoxigenic E. coli (ETEC) Negative Negative 12/22/2024 6:23 AM LUBRICATING SPECIALIST DTL Shiga toxin producing E. coli Negative Negative 12/22/2024 6:23 AM LUBRICATING SPECIALIST DTL Shigella/Enteroinvas mary grace E. coli Negative Negative 12/22/2024 6:23 AM LUBRICATING SPECIALIST DTL Cryptosporidium species Negative Negative 12/22/2024 6:23 AM LUBRICATING SPECIALIST DTL Cyclospora cayetanensis Negative Negative 12/22/2024 6:23 AM LUBRICATING SPECIALIST DTL Entamoeba histolytica Negative Negative 12/22/2024 6:23 AM LUBRICATING SPECIALIST DTL Giardia Negative Negative 12/22/2024 6:23 AM LUBRICATING SPECIALIST DTL Adenovirus F40/41 Negative Negative 025 6:23 AM LUBRICATING SPECIALIST DTL Astrovirus Negative Negative 12/22/2024 6:23 AM LUBRICATING SPECIALIST DTL Norovirus GI/GII Negative Negative 12/22/19 25 6:23 AM LUBRICATING SPECIALIST DTL Rotavirus Ag, F Negative Negative 6:23 AM LUBRICATING SPECIALIST DTL Sapovirus Negative Negative 12/22/2024 6:23 AM LUBRICATING SPECIALIST DTL Comment: ----ADDITIONAL INFORMATION---- This assay is performed using the FDA-cleared FilmArray GI Panel ([employer] Stool (Stool) 12/22/2024 12: 48 AM LUBRICATING SPECIALIST 12/22/2024 3:25 AM LUBRICATING SPECIALIST Justyn Torrez M.D. LAB MICROBIOLOGY - GENE RAL ORDERABLES Final Result [facility] [address] [place] [address], [facility] DTL [address] [facility] [address] [place] [address] * DX Abdomen Portable Anterior Posterior 1 View (12/21/2024 11:59 PM LUBRICATING SPECIALIST) Anatomical Region Laterality Modality Abdomen, Abdominal RST LOS, Abdominal ARZ LOS, Abdominal FLA LOS N/A Digital Radiography Impressions 12/22/2024 8:40 AM LUBRICATING SPECIALIST Nonobstructive bowel gas pattern. Anastomotic sutures right hemiabdomen. Thoracolumbar levocurvature. Multilevel spondylotic changes. Demineralization. Narrative 12/22/2024 8:40 AM LUBRICATING SPECIALIST EXAM: DX ABDOMEN PORTABLE ANTERIOR POSTERIOR 1 VIEW Procedure Note Jay, Walt Padilla M.D. - 12/22/2024 EXAM: DX ABDOMEN PORTABLE ANTERIOR POSTERIOR 1 VIEW IMPRESSION: Nonobstructive bowel gas pattern. Anastomotic sutures right hemiabdomen.Thoracolumbar levocurvature. Multilevel spondylotic changes.Demineralization. Justyn Torrez M.D. IMG DIAGNOSTIC IMAGING PROCEDURES Final Result * Bacteria / Simona Culture, Blood #1 (12/21/2024 9:12 PM LUBRICATING SPECIALIST) Only the most recent of2 resultswithin the time period is included. Bacteria/Emily da Culture, Blood No growth after 5 days of incubation. 12/26/2024 10:02 PM LUBRICATING SPECIALIST DTL Blood (Blood, Peripheral Draw) 12/21/2024 9:12 PM LUBRICATING SPECIALIST 12/21/2024 9:56 PM LUBRICATING SPECIALIST Comment:Specimen Source Site : Blood Pina Dorado M.D., M.P.H. LAB MICROBIOLOGY - GENERAL ORDERABLES Final Result Performing Organization Address City/[facility] Co de Phone Number [facility] [place] [address] [place] [address], [facility] [address] [place] [address] * (ABNORMAL) Hepatic Function Panel (12/21/2024 9:00 PM LUBRICATING SPECIALIST) Bilirubin, Total, S 0.2 0.0 - 1.2 mg/dL 12/21/2024 10:33 PM LUBRICATING SPECIALIST DTL Bilirubin, Direct, S <0.2 0.0 - 0.3 mg/dL 12/21/2024 10:33 PM LUBRICATING SPECIALIST DTL Aspartate Aminotransferase (AST), S 23 8 - 48 U/L 12/21/2024 10:33 PM LUBRICATING SPECIALIST DTL Alanine Aminotransferase (ALT), S 30 7 - 55 U/L 12/21/2024 10:33 PM LUBRICATING SPECIALIST DTL Alkaline Phosphatase, S 45 40 - 129 U/L 12/21/2024 10:33 PM LUBRICATING SPECIALIST DTL Albumin, S 3.0(L) 3.5 - 5.0 g/dL 12/21/2024 10:33 PM LUBRICATING SPECIALIST DTL Protein, Total, S 4.6(L) 6.3 - 7.9 g/dL 12/21/2024 10:33 PM LUBRICATING SPECIALIST DTL Blood (Blood, Venous) 12/21/2024 9:00 PM LUBRICATING SPECIALIST 12/21/2024 10:08 PM LUBRICATING SPECIALIST Pina Dorado M.D., M.P.H. LAB BLOOD ADD-ON Fi nal Result Performing Organization Address City/[facility]/ZIP Co de Phone Number [facility] [place] [address] [place] [address], [facility] [address] [place] [address] * Lactate for Sepsis with Reflex (12/21/2024 8:59 PM LUBRICATING SPECIALIST) Lactate, P 1.0 0.5 - 2.2 mmol/L 12/21/2024 9:40 PM LUBRICATING SPECIALIST [facility] Blood (Blood, Venous) 12/21/2024 8:59 PM LUBRICATING SPECIALIST 12/21/2024 9:25 PM LUBRICATING SPECIALIST Pina Dorado M.D., M.P.H. LAB BLOOD NON ADD-O N Final Result Performing Organization Address City/[facility]/ZIP Co de Phone Number [facility] [place] [address] [place] [address] * Thyroid Function Humphreys (12/21/2024 8:53 PM LUBRICATING SPECIALIST) TSH, Sensitive 1.4 0.3 - 4.2 mIU/L 12/21/2024 11:59 PM LUBRICATING SPECIALIST DT Blood (Blood, Venous) 12/21/2024 8:53 PM LUBRICATING SPECIALIST 12/21/2024 11:27 PM LUBRICATING SPECIALIST Result [facility] Justyn Torrez M.D. LAB BLOOD ADD-ON Final Result Performing Organization Address [facility] Co de Phone Number [facility] [place] [address] [place] [address] * XR ABDOMEN 1V-Outside Gen Dx Stdy (12/15/2024 1:40 PM LUBRICATING SPECIALIST) Narrative [facility] - 12/21/2024 10:14 AM LUBRICATING SPECIALIST This order has been created and auto-finalized to support the import of outside images. If available, original interpretation can be found on the Media Tab in Chart Review, in Document Viewer, as an image in QREADS or as an Addendum. If a re-interpretation or overread is required please follow defined workflow. us Provider Not In System IMG DIAGNOSTIC IMAGING MS OCEDURES Final Result Performing Organization Address City/[facility]/ZIP Co de Phone Number [facility] NA * XR CHEST 1V PORTABLE-Outside Chest Xray (12/15/2024 1:35 PM LUBRICATING SPECIALIST) Narrative [facility] - 12/21/2024 10:16 AM LUBRICATING SPECIALIST This order has been created and auto-finalized to support the import of outside images. If available, original interpretation can be found on the Media Tab in Chart Review, in Document Viewer, as an image in QREADS or as an Addendum. If a re-interpretation or overread is required please follow defined workflow. us Provider Not In System IMG DIAGNOSTIC IMAGING MS OCEDURES Final Result [facility] NA * HCV Ab Scrn w/Reflex to HCV PCR, Serum (07/07/2024 2:56 PM CDT) HCV Ab Screen, S Negative Negative 07/07/2024 9:11 PM CDT [facility] Comment: Consumption of high-dose biotin supplement within 12 hours of blood collection for this test can cause false-negative results. Blood (Blood, Venous) 07/07/2024 2:56 PM CDT 07/07/2024 7:46 PM CDT Sergei Wallace., M.S. LAB MICROBIOLOGY - B LOOD ORDERABLES Final Result [facility] [address] [place] [address] [facility] [address] [place] [address] * US Abdomen and Abdomen Doppler (08/04/2016 [...] effusions. Electronically signed by: Tasneem Brand M.D. [id number] 04-Aug-2016 08:18 Narrative 08/04/2016 8:18 AM CDT 04-Aug-2016 08:08:00 Exam: US Abd Cmpl with Doppler Lmtd Indications: [id number] ABDOMEN WITH DOPPLER/liver disease alcoholic/pt w/encephalopathy and heavy alcohol use w/2 cm liver nodule and elevated liver studies. ORIGINAL REPORT - 04-Aug-2016 08:18:00 EXAM: US Abdomen Complete with limited color and spectral Doppler analysis COMPARISON: CT 08/03/2016 Procedure Note Felipe Brand M.D. - 02/13/2018 04-Aug-2016 08:08:00 Exam: US Abd Cmpl with Doppler Lmtd Indications: [id number] ABDOMEN WITH DOPPLER/liver diseasealcoholic/pt w/encephalopathy and heavy [...] M.D. [id number] 04-Aug-2016 08:18 Jacqueline Tineo M.D. [facility] US PROCEDURES Final Re sult from Last 3 Months or Most Recently Relevant to Health Maintenance Insurance MEDICARE [facility] Advance Directives For more information, please contact: [phone] * Full Code (Latest Code Status on File) Date Activated Date Inactivated Comments 12/21/2024 10:53 PM 12/29/2024 7:52 PM Question Answer Comments Full Code: Discussed Care Teams Program Scheduler Relationship Specialty Start Date End Date None Reported, Pcp PCP - General Family Medicine 12/21/24
--- OUTSIDE RECORDS SUMMARY | 2025-01-05 16:17 | XMS_ITS | Encounter Summary ---
Author Organization [facility] Address [address] [place] [address] Care Team Providers Care Button Spindler Name Role Phone None Reported, Pcp Primary Care Provider Unavail able Reason for Referral * Outpatient (Routine) - Closed Specialty Diagnoses / Procedures Referred By Murray baxter Referred To Contact Oncology Diagnoses Diarrhea Cristine Reyes APRN, C.N.P. [address] [place] [phone] Phone: tel: fax: [facility] Referral ID Status Reason Start Date Expiration Date Visits Re quested Visits Authorized [id number] Closed 01/01/2025 07/03/2026 1 1 Scheduling Instructions Please call with appts- it doesn't look like he has checked the portal since June. Thanks! NG FRAME TENDER Encounter Details Date Type Department Care Team (Late st Contact Info) Description 01/01/2025 Clinical Communication Department of Oncology in [place], [place] [address] [place] [phone] Ora Gotti R.N., O.C.N. [address] [place] [phone] Social History Tobacco Use Types Packs/Day Years Used Date Smoking Tobacco: Former Cigarettes Q uit: 2016 Smokeless Tobacco: Never Alcohol Use Standard Drinks/Week Comments Yes 21 (1 standard drink = 0.6 oz pu re alcohol) [facility] Utilities Answer Date Recorded In the past 12 months has th e [employer], gas, oil, or water company threatened to [...] your living situation today? 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 - 01/01/2025 12:11 PM ROVING FRAME TENDER SUBJECTIVE CHIEF COMPLAINT / REASON FOR CALL ICI Follow Up ICI Toxicity: Colitis ASSESSMENT Confirmed with patient that they are currently taking: Steroids: 120 mg prednisone daily GI Prophylaxis: 20 mg omeprazole daily PJP Prophylaxis: Bactrim Single Strength Daily I called and spoke with Mr. Castrejon to see how he is feeling since he was dismissed from the hospital. He reports that overall he is feeling quite well. He states that he had 2 formed bowel movementsyesterday and 3 formed so far today. He states that he is eating and drinking well. He denies any abdominal pain, blood in the stool, nausea, and fevers. I did review with him that it looks like his budesonide was stopped upon leaving the hospital. He is currently driving right now so he is unsure if he has this medication at home. I did review with him that he should let us know if he does have this as Cristine Reyes APRN, AUDITOR IN CHARGE confirms she does want him on 9 mg budesonide daily. He states that he will call back and let us know. Corticosteroid History: 12/26/2024- 250 mg solumedrol 12/29/2024- 120 mg prednisone daily PLAN ICI appointment next week Disposition/Recommendation: recommended continue engagement in self-management activities. Information/Education: patient/caller able to teach back. Caller agreeable to plan of care: yes. The following references were used: nursing clinical judgement. NG FRAME TENDER documented in this encounter Plan of Treatment Scheduled Referrals Name Type Priority Associated Diagnoses Orde r Schedule Oncology office visit (clinic) Outpatient Referral Routine Diarrhea Expected: 01/05/2025, Expires: 03/31/2026 documented as of this encounter Visit Diagnoses Diagnosis Diarrhea- Primary documented in this encounter Care Teams Button Spindler Relationship Specialty Start Date End Date None Reported, Pcp PCP - General Family Medicine 12/21/24 documented as of this encounter
--- OUTSIDE RECORDS SUMMARY | 2025-01-05 16:17 | XMS_ITS ---
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 Past Treatment and Therapy Plans No past plan information found. Past Radiation Episodes * IMRT: Right LungOverview* First Treatment Date Last Treatment Date Treatment Site Technique Goal Episode Provider 09/16/2023 09/27/2023 Right Lung IMRT Palliative Retter Veronika mejia, RFeliciaN. * Linked Problems Malignant Neoplasm Of Lung S mall Cell Right Treatment Courses* Course 1xLung 09/16/2023 - 09/27/2023 Treatment Period Fraction Dose Fractions Total Dose Plans Planned [id number] 09/16/2023 - 09/27/2023 300 cGy 3 ,000 cGy Reference Points Delivered [id number] 09/16/2023 - 09/27/2023 3,000 cGy
--- OUTSIDE RECORDS SUMMARY | 2025-01-05 16:17 | XMS_ITS | Encounter Summary ---
Author Organization [facility] Address [address] [place] [address] Care Team Providers Care Raisin Separator Operator Name Role Phone None Reported, Pcp Primary Care Provider Unavail able Encounter Details Date Type Department Care Team (Late st Contact Info) Description 12/29/2024 Clinical Communication Department of Oncology in [place], [place] [address] [place] [phone] Keyonna Cavazos APRN, C.N.P., M.S.N. [address] [place] [phone] Social History Tobacco Use Types Packs/Day Years Used Date Smoking Tobacco: Former Cigarettes Q uit: 2016 Smokeless Tobacco: Never Alcohol Use Standard Drinks/Week Comments Yes 21 (1 standard drink = 0.6 oz pu re alcohol) [facility] Utilities Answer Date Recorded In the past 12 months has e [employer], gas, oil, or water [employer] threatened to shut off services in your [...] money to buy more. Never true 12/21/19 Within the past 12 months, t he [...] your living situation today? 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
--- OUTSIDE RECORDS SUMMARY | 2025-01-05 16:18 | XMS_ITS | Clinical Summary ---
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 Gender Identity Not on file Sexual Orientation [...] C screening for ag e 18-79 02/25/1972 Pneumococcal series for age 50+ (1 of 2 - PCV) 1973 Tetanus booster 1974 Colonoscopy through age 75 1999 Zoster (shingles) series for age 50+ (1 of 2) 02/25/2004 RSV vaccine for adults or (1 - Risk 60-74 years 1-dose series) 2014 Lipids for age 45-75 05/30/2018 05/30/2013, 01/01/2007, 03/15/2006, Additional history exists COVID-19 vaccine series ( season) 2024 12/05/2021, 02/22/2021, 01/25/2021 Influenza for age 65+ 07/19/2024 Medical Devices Implanted Type Area Director Special Education Device Identifier Shelf Expiration Date Model / Serial / Lot Patch Vasc 0.8x8cm Biological Peripatch - [id number] Implanted:Qty: 1 on 10/07/2013 by Devin Cardoza MD at [facility] Left: Carotid Artery [employer] 06/17/2016 0.8P8# / / [id number] Procedures Procedure Name Priority Date/Time Associated Diagnosis Comments LIPID PANEL Early AM 05/30/2013 5:25 AM CDT from Last 3 Months or Most Recently Relevant to Health Maintenance Results * Lipid Panel - In AM (05/30/2013 5:25 AM CDT) CHOLESTEROL,TOTA L 112 100 - 199 mg/dL [facility] 126 <150 mg/dL [facility] HDL CHOLESTEROL 49 >40 mg/dL [facility] CHOL/HDL RATIO 2.[address] [facility] NON-HDL CHOLESTEROL 63 Undefined mg/dL [facility] LDL CHOLESTEROL 38 <131 mg/dL [facility] PATIENT STATUS Fasting [facility] Blood specimen (specimen) BLOOD SPECIMEN / Unknown 05/30/2013 5:25 AM CDT 05/29/2013 11:10 PM CDT Pranav Bennett MD CHEMISTRY F inal Result [facility] INTERNAL ZIP [id number] [address] [place] [address] from Last 3 Months or Most Recently Relevant to Health Maintenance Insurance [facility] MEDICARE PB ONLY MEDICARE PART B HB ONLY MEDICARE PART A HB ONLY * Guarantor: DIOGENES CASTREJON Account Type Relation to Patient Date of Phone Billing Address Workers Comp 1955 ([place]) [id number] [place] [id number] WORKERS COMP Advance Directives * Full Code [...] 11:10 PM 05/31/2013 3:24 PM Care Teams Agile Developer Relationship Specialty Start Date End Date Andrei Burnham MD PCP - General Family Practice 06/08/13
--- OUTSIDE RECORDS SUMMARY | 2025-01-05 16:18 | XMS_ITS | Encounter Summary ---
Author Organization [facility] Address [address] [place] [address] Care Team Providers Care Vocational Education Teacher Name Role Phone None Reported, Pcp Primary Care Provider Unavail able Encounter Details Date Type Department Care Team (Latest Contact Info) Description 12/24/2024 2:00 PM WOOL HAT FORMING MACHINE TENDER Ancillary Procedure Department of Gastroenterology Social History Tobacco Use Types Packs/Day Years Used Date Smoking Tobacco: Former Cigarettes Q uit: 2016 Smokeless Tobacco: Never Alcohol Use Standard Drinks/Week Comments Yes 21 (1 standard drink = 0.6 oz pu re alcohol) [facility] Utilities Answer Date Recorded In the past 12 months has e [employer], gas, oil, or water [employer] threatened to shut off services in your [...] living situation today? I have a [facility] place to live 12/21/2024 Sex and Gender Information Value Date Recorded Sex Assigned at Male 07/11/2024 2:15 PM CDT Legal Sex Male 9:12 AM WOOL HAT FORMING MACHINE TENDER Gender Identity Male 07/11/2024 2:15 PM CDT Sexual Orientation Straight 07/11/2024 2: 15 PM CDT documented as of this encounter Plan of Treatment Not on file documented as of this encounter Procedures Procedure Name Priority Date/Time Associated Diagnosis Comments GASTROENTEROLOGY IMAGE EXAM Routine 12/24/2024 2:00 PM WOOL HAT FORMING MACHINE TENDER documented in this encounter Results * Colonoscopy-Gastroenterology Image Exam (12/24/2024 2:00 PM WOOL HAT FORMING MACHINE TENDER) 12/24/2024 1:52 PM WOOL HAT FORMING MACHINE TENDER Narrative IIMS - 12/24/2024 2:50 PM WOOL HAT FORMING MACHINE TENDER This order has been created and auto-finalized to support the import of images acquired without order. The clinical documentation to support these images can be found on the encounter that produced images. us Provider Not In System IMG NON RAD IMAGING PROCE DURES Final Result [facility] NA documented in this encounter Visit Diagnoses Not on filedocumented in this encounter Care Teams Vocational Education Teacher Relationship Specialty Start Date End Date None Reported, Pcp PCP - General Family Medicine 12/21/24 documented as of this encounter
--- OUTSIDE RECORDS SUMMARY | 2025-01-05 16:18 | XMS_ITS | Encounter Summary ---
Author Organization [facility] Address [address] [place] [address] Care Team Providers Care Customer Solutions Teammate Name Role Phone None Reported, Pcp Primary Care Provider Unavail able Encounter Details Date Type Department Care Team (Latest Contact Info) Description 12/23/2024 Clinical Communication Division of Gastroenterology in [place], [place] [address] [place] [phone] Ambika Nguyễn M.D. [address] [place] [phone] Social History Tobacco Use Types Packs/Day Years Used Date Smoking Tobacco: Former Cigarettes Q uit: 2016 Smokeless Tobacco: Never Alcohol Use Standard Drinks/Week Comments Yes 21 (1 standard drink = 0.6 oz pu re alcohol) [facility] Utilities Answer Date Recorded In the past 12 months has [employer], gas, oil, or water [employer] threatened to shut off services in your [...] your living situation today? 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
--- OUTSIDE RECORDS SUMMARY | 2025-01-05 16:18 | XMS_ITS | Encounter Summary ---
Author Organization [facility] Address [address] [place] [address] Care Team Providers Care Ultrasound Technol Name Role Phone None Reported, Pcp Primary Care Provider Unavail able Encounter Details Date Type Department Care Team (Latest Contact Info) Description 12/21/2024 Intake [facility] Social History Tobacco Use Types Packs/Day Years Used Date Smoking Tobacco: Former Cigarettes Q uit: 2016 Smokeless Tobacco: Never Alcohol Use Standard Drinks/Week Comments Yes 21 (1 standard drink = 0.6 oz pu re alcohol) [facility] Utilities Answer Date Recorded In the past 12 months has e [employer], gas, oil, or water [employer] threatened to shut off services in your [...] your living situation today? I have a [facility] place to live 12/21/2024 Sex and Gender Information Value Date Recorded Sex Assigned at Male 07/11/2024 2:15 PM CDT Legal Sex Male 9:12 AM CSR RETAIL Gender Identity Male 07/11/2024 2:15 PM CDT Sexual Orientation Straight 07/11/2024 2: 15 PM CDT documented as of this encounter Functional Status * Intimate Partner Violence Question Answer Date of Assessment Author Within the last year, have y ou been humiliated or emotionally abused in other ways by your partner or ex-partner? No 12/21/2024 9:40 PM CSR RETAIL Ethan Hauser, R.N. Within the last year, have y ou been afraid of your partner or ex-partner? No 12/21/2024 9:40 PM CSR RETAIL January Hauser , R.N. Within the last year, have y ou been raped or forced to have any kind of sexual activity by your partner or ex-partner? No 12/21/2024 9:40 PM CSR RETAIL Ginger Hauser, R.N. Within the last year, have y ou been kicked, hit, slapped, or otherwise physically hurt by your partner or ex-partner? No 12/21/2024 9:40 PM Ginger Leiva, R.N. documented as of this encounter Plan of Treatment Not on file documented as of this encounter Visit Diagnoses Not on filedocumented in this encounter Care Teams Ultrasound Technol Relationship Specialty Start Date End Date None Reported, Pcp PCP - General Family Medicine 12/21/24 documented as of this encounter
--- OUTSIDE RECORDS SUMMARY | 2025-01-05 16:18 | XMS_ITS | Encounter Summary ---
Author Organization [facility] Address [address] [place] [address] Care Team Providers Care Senior Engineering Team Leader Name Role Phone None Reported, Pcp Primary Care Provider Unavail able Encounter Details Date Type Department Care Team (Latest Contact Info) Description 12/24/2024 2:02 PM CREATIVE SERVICES MANAGER Anesthesia Event Division of Gastroenterology in [place], [place] [address] [place] [phone] Parveen Amor APRN, CRNA, D.N.P. [address] [place] [phone] Anesthesia Record Procedure Summary Procedure Name Responsible Anesthesiologist Anesthesia Start Time Anesthesia Stop Time EGD (ESOPHAGEALGASTRODU ODENOSCOPY) Parveen Amor APRN, CRNA, D.N.P. 12/24/24 1402 12/24/24 1448 Events Date Time Event Comment 12/24/2024 1402 An Start Machine/Equipme nt Checked Infection Precautions Followed Procedure/Site Verified NPO Status Verified Supine Standard ASA Monitors Applied 1407 Turnover to Proceduralist 1408 Proc Start 1440 Proc Fin 1443 Turnover to ANE Staff 1443 an stop data 1448 An End I completed my handoff to the receiving staff during which we 1. Identified the patient 2. Identified the responsible provider 3. Reviewed the pertinent medical history 4. Discussed the surgical course 5. Reviewed intra-op anesthesia management and issues during anesthesia 6. Set expectations for post-procedure period 7. Allowed opportunity for questions and acknowledgement of understanding. Meds Name Total ondansetron PF 4 mg/2 mL injection 4 mg propofol 10 mg/mL injection 100 mg propofol 10 mg/mL infusion 223.13 mg Lactated Ringers Free Drip 150 mL * Agents No agents on file. * Blood No blood administrations on file. Lines, Drains, and Airways Type Details Placement Removal Implanted Port Single Lumen Right; Chest 07/10/24 1526 by documented in this encounter Social History Tobacco Use Types Packs/Day Years Used Date Smoking Tobacco: Former Cigarettes Q uit: 2016 Smokeless Tobacco: Never Alcohol Use Standard Drinks/Week Comments Yes 21 (1 standard drink = 0.6 oz pu re alcohol) [facility] Utilities Answer Date Recorded In the past 12 months has th e [employer], gas, oil, or water [employer] threatened to shut off services in your [...] your living situation today? I have a [facility] place to live 12/21/2024 Sex and Gender Information Value Date Recorded Sex Assigned at Male 07/11/2024 2:15 PM CDT Legal Sex Male 9:12 AM CREATIVE SERVICES MANAGER Gender Identity Male 07/11/2024 2:15 PM CDT Sexual Orientation Straight 07/11/2024 2: 15 PM CDT documented as of this encounter OR Notes * Anesthesia Postprocedure Evaluation - Parveen Amor APRN, CRNA, D.N.P. - 12/24/2024 2:50 PM CST Patient: Cr Castrejon Procedure Summary Date: 12/24/24 Room / Location: Division of Gastroenterology in [place], [place] Anesthesia Start: 1402 Anesthesia Stop: 1448 Procedures: EGD (ESOPHAGEALGASTRODUODENOSCOPY) COLONOSCOPY Diagnosis: Scheduled Providers: Parveen Amor APRN, CRNA, D.N.P. Responsible Provider: Parveen Amor APRN, CRNA, D.N.P. Anesthesia Type: MAC ASA Status: 4 Anesthesia Type: MAC Last vitals Vitals Value Taken Time BP 101/62 12/24/24 1450 Temp Pulse 82 12/24/24 1450 Resp 17 12/24/24 1450 SpO2 97 % 12/24/24 1450 Vitals shown include unfiled device data. Please reference Vitals flowsheet for most recent vital signs. Anesthesia Post Evaluation Patient Disposition: dismissal Cardiovascular status: hemodynamics (HR & BP) acceptable Respiratory status: patent airway with spontaneous effort Temperature: normothermic Oxygen requirements: room air Level of consciousness: awake Pain score: pain adequately controlled and/or at baseline Post Op nausea/vomiting: none Hydration status: euvolemic Notable Events No notable events documented. TIVE SERVICES MANAGER * Anesthesia Preprocedure Evaluation - Parveen Amor APRN, CRNA, Piyush.N.P. - 12/24/2024 1:52 PM CST Preprocedure Anesthesia & H&P Assessment Procedure Summary Date/Time: 12/24/24 1345 Scheduled providers: Parveen Amor APRN, CRNA, D.N.P. Procedures: EGD (ESOPHAGEALGASTRODUODENOSCOPY) COLONOSCOPY Location: Division of Gastroenterology in [place], [place] Pertinent components of the patient's history including current problem list, medical history, surgical history, family history, social history, medications and allergies were reviewed. Present illness and pre-op diagnosis were confirmed. The planned surgery / procedure was verified with the patient / legal guardian. The patient's general health condition remains unchanged RELEVANT COMORBID CONDITIONS CV (+) Hypertension Essential Primary (+) Myocardial Infarction Old (+) Peripheral Vascular Disease (HCC) NEURO (+) Stenosis Carotid Artery Left GI (+) Gastroesophageal Reflux Disease OBJECTIVE PHYSICAL EXAMINATION Airway (HEENT) Mallampati: II Cardiovascular Rhythm: Regular Pulmonary Pulmonary Assessment: Non labored General / Constitutional Constitutional Assessment: Normal ASSESSMENT / PLAN ANESTHESIA PLAN ASA: 4 Anesthesia Plan: MAC Patient seen and allergies reviewed, anesthesia plan and risks discussed directly with patient /legal guardian or through an sales associate cashier. The use of blood products not discussed Approval to Proceed: approved for anesthesia TIVE SERVICES MANAGER TIVE SERVICES MANAGER documented in this encounter Plan of Treatment Not on file documented as of this encounter Visit Diagnoses Not on filedocumented in this encounter Administered Medications Inactive Administered Medications - up to 3 most recent administrations Medication Order MAR Action Action Date Dose Rate Site Lactated Ringer's intravenous, Continuous Infusion: Per Instructions PRN, Starting on Doretha 12/24/24 at 1402, Anesthesia Intra-op New Bag 12/24/2024 2:02 PM CREATIVE SERVICES MANAGER ondansetron (PF) injection (Zofran) intravenous, As needed, Starting on Doretha 12/24/24 at 1406, Anesthesia Intra-op Given 12/24/2024 2:06 PM CREATIVE SERVICES MANAGER 4 mg propofol 10 mg/mL infusion (Diprivan) intravenous, Continuous Infusion: Per Instructions PRN, Starting on Doretha 12/24/24 at 1406, Anesthesia Intra-op New Bag 12/24/2024 2:06 PM CREATIVE SERVICES MANAGER 150 mcg/kg/min 53.55 mL/hr propofoL injection (Diprivan) intravenous, As needed, Starting on Doretha 12/24/24 at 1406, Anesthesia Intra-op Given 12/24/2024 2:36 PM CREATIVE SERVICES MANAGER 20 mg Given 12/24/2024 2:31 PM CREATIVE SERVICES MANAGER 30 mg Given 12/24/2024 2:09 PM CREATIVE SERVICES MANAGER 20 mg documented in this encounter Care Teams Senior Engineering Team Leader Relationship Specialty Start Date End Date None Reported, Pcp PCP - General Family Medicine 12/21/24 documented as of this encounter
--- OUTSIDE RECORDS SUMMARY | 2025-01-05 16:18 | XMS_ITS | Encounter Summary ---
Author Organization [facility] Address [address] [place] [id number] Care Team Providers Care Summer Analyst Name Role Phone None Reported, Pcp Primary Care Provider Unavail able Reason for Visit * Reason Onset Date Comments Family [facility] calling 01/05/2025 Encounter Details Date Type Department Care Team (Latest Contact Info) Description 01/05/2025 Clinical Communication Department of Oncology in [place], [place] [address] [place] [phone] Cristine Reyes, INDER, C.N.P. [address] [place] [phone] Family [facility] calling Social History Tobacco Use Types Packs/Day Years Used Date Smoking Tobacco: Former Cigarettes Q uit: 2016 Smokeless Tobacco: Never Alcohol Use Standard Drinks/Week Comments Yes 21 (1 standard drink = 0.6 oz pu re alcohol) [facility] Utilities Answer Date Recorded In the [...] your living situation today? 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
--- OUTSIDE RECORDS SUMMARY | 2025-01-05 16:18 | XMS_ITS | Encounter Summary ---
Author Organization [facility] Address [address] [place] [id number] Care Team Providers Care Gear Hobber Operator Name Role Phone None Reported, Pcp Primary Care Provider Unavail able Encounter Details Date Type Department Care Team (Late st Contact Info) Description 12/28/2024 Clinical Communication Department of Oncology in [place], [place] [address] [place] [phone] Kurt Shah Jr., M.D., M.B.A. [address] [place] [phone] Social History Tobacco Use Types Packs/Day Years Used Date Smoking Tobacco: Former Cigarettes Q uit: 2016 Smokeless Tobacco: Never Alcohol Use Standard Drinks/Week Comments Yes 21 (1 standard drink = 0.6 oz pu re alcohol) [facility] Utilities Answer Date Recorded In the past 12 months has [employer], gas, oil, or water [employer] threatened to shut off services in your [...] your living situation today? 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
--- OUTSIDE RECORDS SUMMARY | 2025-01-05 16:18 | XMS_ITS | Encounter Summary ---
Author Organization [facility] Address [address] [place] [id number] Care Team Providers Care Radiation Officer Name Role Phone None Reported, Pcp Primary Care Provider Unavail able Encounter Details Date Type Department Care Team (Latest Contact Info) Description 12/21/2024 7:57 PM ELECTROTYPE MOLDER - 12/29/2024 5:52 PM ELECTROTYPE MOLDER Hospital Encounter [facility], [facility], [facility], Third Floor [address] [place] [phone] Bismark Bentley M.D. [address] [place] [phone] Shaq Solano M.D. [address] [place] [phone] Candidiasis (Primary Dx); Malignant Neoplasm Of Lung Small Cell Right (HCC) Discharge Disposition: Home or Self Care Social History Tobacco Use Types Packs/Day Years Used Date Smoking Tobacco: Former Cigarettes Q uit: 2016 Smokeless Tobacco: Never Alcohol Use Standard Drinks/Week Comments Yes 21 (1 standard drink = 0.6 oz pu re alcohol) [facility] Utilities Answer Date Recorded In the past 12 months has [employer], gas, oil, or water [employer] threatened to shut off services in your [...] your living situation today? I have a [facility] place to live 12/21/2024 Sex and Gender Information Value Date Recorded Sex Assigned at Male 07/11/2024 2:15 PM CDT Legal Sex Male 9:12 AM ELECTROTYPE MOLDER Gender Identity Male 07/11/2024 2:15 PM CDT Sexual Orientation Straight 07/11/2024 2: 15 PM CDT documented as of this encounter Last Filed Vital Signs Vital Sign Reading Time Taken Comments Blood Pressure 103/56 12/29/2024 4:35 PM ELECTROTYPE MOLDER Pulse 71 12/29/2024 4:35 PM ELECTROTYPE MOLDER Temperature 36.4 C (97.5 F) 12/29/2024 4:35 PM ELECTROTYPE MOLDER Respiratory Rate 18 12/29/2024 4:35 PM ELECTROTYPE MOLDER Oxygen Saturation 98% 12/29/2024 4:35 PM ELECTROTYPE MOLDER Inhaled Oxygen Concentration - - Weight 60 kg (132 lb 4.4 oz) 12/29/2024 5:00 AM ELECTROTYPE MOLDER Height 162.6 cm (5' 4.02) 12/28/2024 10:26 AM C Body Mass Index 22.69 12/28/2024 10:26 AM ELECTROTYPE MOLDER documented in this encounter Functional Status * Intimate Partner Violence Question Answer Date of Assessment Author Within the last year, have y ou been humiliated or emotionally abused in other ways by your partner or ex-partner? No 12/21/2024 9:40 PM ELECTROTYPE MOLDER Ethan Hauser, R.N. Within the last year, have y ou been afraid of your partner or ex-partner? No 12/21/2024 9:40 PM ELECTROTYPE MOLDER January Hauser R.N. Within the last year, have y ou been raped or forced to have any kind of sexual activity by your partner or ex-partner? No 12/21/2024 9:40 PM ELECTROTYPE MOLDER Ginger Hauser R.N. Within the last year, have y ou been kicked, hit, slapped, or otherwise physically hurt by your partner or ex-partner? No 12/21/2024 9:40 PM ELECTROTYPE MOLDER Ginger Hauser R.N. documented as of this encounter Discharge Summaries * Yudi Motley M.D. - 12/29/2024 1:07 PM CST DISCHARGE SUMMARY BRIEF OVERVIEW Hospital: [facility] Discharge Provider: Shaq Solano M.D. Primary Team: [facility] Gastroenterology B Primary Care Providers: None Reported, Pcp (General) No address on file Primary Care Provider Phone Number: None Primary Care Provider Fax Number: None Admission Date: 12/21/2024 Discharge Date: 12/29/2024 PRINCIPAL DIAGNOSIS Diarrhea SECONDARY DIAGNOSES Principal Problem: Diarrhea Active Problems: Candidiasis Resolved Problems: * No resolved hospital problems. * DISCHARGE DISPOSITION Home or Self Care [1] ACTIVE ISSUES REQUIRING FOLLOW UP FOR PATIENT: General Information and Recommendations: - You were admitted to the hospital for diarrhea, likely secondary to chemotherapy (ICI colitis) Change your medications as follows: Begin taking: Fluconazole 200 mg tablet daily until prescription is done (10 days) Prednisone 120 mg daily until follow up with [facility] Oncology to determine tapering plan Bactrim 1 tablet daily Stop taking: Budesonide 9 mg daily until follow up with [facility] Oncology Please do not take loperamide (Imodium) [place] [facility] Please repeat labs, including BMP, Mag, Phos at follow up visit on 12/30 Follow up with: Your primary care provider (PCP) within 1 week for follow up care and labs OUTPATIENT FOLLOW UP Scheduled Appointments 12/31/2024 3:00 PM Cristine Reyes APRN, C.N.P. Oncology 01/11/2025 4:20 PM Sergei Martinez M.B.B.Valerie., M.S. Gastroenterology and Hepatology For appointment details refer to your Patient Appointment Guide. TEST RESULTS PENDING AT DISCHARGE Pending Labs Order Current Status Fungal Culture, Routine Preliminary result DETAILS OF HOSPITAL STAY REASON FOR ADMISSION Diarrhea HOSPITAL COURSE Mr. Cr Castrejon is a 69 y.o. 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 Difficile testing. Briefly, patient had diarrhea 05/21/2024 and was treated for C. Difficile infection with a course of oral vancomycin. His symptoms subsequently reoccurred shortly after on 05/05/2024 and was given fidaxomicin for 10 days with resolution of symptoms. Unfortunately, he had recurrence of sympotms again and had C. Difficile positive again. He was then given 3 weeks of fidaxomicin and a course of steroids, and continued on budesonide 9 mg daily. He was seen by Dr. Martinez at [facility] as an outpatient on 07/07/2024. He subsequently underwent colonoscopy on 07/10/2024 with normal colon and ileum (of what was examined), and they did a fecal microbiologic transplant. He subsequently did well after this until current presentation. Two weeks prior to admission, has had profuse brown, watery, malodorous stool (up to 20 times per day). GI pathogen panel was unrevealing. Concern for ICI enteritis vs colitis was high and the patient underwent endoscopy and colonoscopy with biopsies on 12/24. EGD demonstrated esophageal plaques suspicious for candidiasis. Mucosal changes in the duodenum showed mild atrophy and nodularity. Esophageal brushings grew andrea albicans and he was initiated on oral fluconazole. Colonoscopy demonstrated one 8 mm polyp in the sigmoid colon, removed with a cold snare and patchy granularity/micronodularity in the entire examined colon. Biopsy was obtained. 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 Oncology was consulted regarding this finding. He was initiated on IV methylprednisolone 250 mg x 3 days with taper. He improved significantly with steroids. He was started on a PPI and given PJP prophylaxis with Bactrim due to his steroids. He received intermittent doses of diuretics given edema from steroids. His ZAINAB resolved with improvement of his diarrhea. Follow up with Oncology was made by the oncology consult service. CONSULTS ORDERED DURING THIS ADMISSION IP CONSULT TO ONCOLOGY IP CONSULT TO ONCOLOGY CONDITION AT DISCHARGE stable Discharge instructions were provided to the patient and caregiver(s). TROTYPE MOLDER TROTYPE MOLDER documented in this encounter Discharge Instructions * Discharge Instructions* Paulette Sarah M.D., M.S. - 12/22/2024 7:29 AM ELECTROTYPE MOLDER You were discharged from the [facility] Gastroenterology B Service. Please identify this service name if you call with questions after hospitalization. MEDICATION CHANGES Please take all medications as previously prescribed unless otherwise stated below. STARTED: Loperamide 2 mg after loose bowel movements as needed CHANGED: None STOPPED: Please do not take the budesonide for the time being. FOR PATIENT We will contact your apron cleaner with your biopsy results. You will be contacted regarding primary care follow-up. Gastroenterology appointment on 01/11. Please do not take the budesonide for the time being. FOR PCP Please obtain BMP to evaluate for any electrolyte abnormalities in the setting of persistent diarrhea. TROTYPE MOLDER TROTYPE MOLDER TROTYPE MOLDER TROTYPE MOLDER TROTYPE MOLDER * Attachments The following attachments cannot be sent through Care Everywhere. * Loperamide (By mouth) (Cymro) * [facility] * Fluconazole (By mouth) (Cymro) * Prednisone (By mouth) (Cymro) * Sulfamethoxazole/Trimethoprim (By mouth) (Cymro) documented in this encounter Medications at Time of Discharge acetaminophen (TylenoL) 500 mg tablet Take 1,000 mg by mouth daily. aspirin 81 mg chewable tablet Chew 1 tablet 2 (two) times a week. 2 days a week 08/02/2016 atorvastatin (LIPITOR) 40 mg tablet Take 40 mg by mouth daily. 07/25/2012 bismuth subsalicylate (Pepto-BismoL) 262 mg tablet Take 1 tablet by mouth daily. cholecalciferol (VITAMIN D3) 10 mcg (400 Unit) tablet Take 10 mcg by mouth daily. 08/16/2021 fluconazole (Diflucan) 200 mg tabletIndications:e sophageal candidiasis Take 1 tablet (200 mg total) by mouth daily for 9 doses Indications: esophageal candidiasis. 9 tablet 12/29/2024 5:38 PM ELECTROTYPE MOLDER 12/30/2024 5 folic acid 1 mg tablet Take 1 tablet by mouth daily. 05/17/2015 metoprolol succinate (TOPROL-XL) 25 mg 24 hr tablet Take 25 mg by mouth daily. 08/07/2016 multivitamin tablet Take 1 tablet by mouth daily. 08/02/2016 nitroglycerin (NITROSTAT) 0.[address] 1 tablet under the tongue as needed. 08/02/2016 omega 0-uck-dvp-fish oil (fish oil) 1,000 mg (120 mg-180 mg) capsule Take 1 capsule by mouth daily. 08/02/2016 polycarbophil (FiberCon) 625 mg tablet Take 625 mg by mouth daily. Fiber gummy tamsulosin (Flomax) 0.4 mg 24 hr capsule Take 0.4 mg by mouth daily. 02/18/2024 thiamine (VITAMIN B1) 100 mg tablet Take 1 tablet by mouth daily. 08/07/2016 omeprazole (PriLOSEC) [address] capsule Take 20 mg by mouth daily. predniSONE (Deltasone) 20 mg tablet Take 6 tablets (120 mg total) by mouth daily. Please follow up with [facility] ICI team for further tapering details. 60 tablet 12/29/2024 5:38 PM ELECTROTYPE MOLDER 12/30/2024 5 sulfamethoxazole-tr imethoprim (Bactrim) 400-80 mg per tabletIndications:P rophylaxis, medical Take 1 tablet by mouth daily Indications: Prophylaxis, medical. Please follow up with Oncology team. 30 tablet 12/29/2024 5:38 PM ELECTROTYPE MOLDER 12/30/2024 5 documented as of this encounter Progress Notes * Shaq Solano M.D. - 12/29/2024 10:42 AM CST Inpatient Progress Note 12/29/2024 Subjective: This is a supervisory note for Yudi Motley MD. I have reviewed the available records, interviewedand examined the patient. I agree with the history, physical examination, and plan as outlined in Yudi Motley MD's note dated today. Overnight he had no acute events. 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 Stool pathogen panel was negative. There was concern for ICI colitis as an explanation of her diarrhea. EGD and colonoscopy were performed and biopsies showed moderately active colitis with increased crypt apoptosis and granulomas with moderate active chronic ileitis with markedly increased apoptosis. Together, these were compatible for ICI enterocolitis. She was seen by the medical oncology ICI colitis service and we appreciate their assistance. The patient completed 3 days of IV solumedrol 250 mg daily. He has had significant improvement with this with stool frequency. He transitioned to prednisone 120 mg by mouth daily yesterday. He has done well with this, with only 3 bowel movements overnight. #4 Acute kidney injury This is resolving with improved creatinine. #5 Andrea esophagitis Brushings with NIVEES positive for andrea esophagitis. We will treat with a 2 week course of fluconazole. #6 Disposition He will be discharged today with outpatient follow up in the medical oncology ICI clinic. Dr. Anderson is the fellow during this patient's hospitalization. TROTYPE MOLDER * Yudi Motley M.D. 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 INTERVAL EVENTS No acute events VSS, afebrile 3 documented stools yesterday, he reports 3 bowel movements overnight Completed day 3 of 250 mg IV methylprednisolone yesterday, will start oral prednisone 120 mg with outpatient ICI follow up at the end of the week Labs significant for hemoglobin 9.8, WBC 7, K 4.7, Cr stable at 1.3, Mag 1.7 QuantiFERON pending OBJECTIVE General: Alert, no acute distress Lungs: Clear to auscultation Heart: Regular rate and rhythm. No murmurs. Extremities: No peripheral edema Abdomen: Soft, nontender, nondistended, bowel sounds normoactive Mental: Alert and engaged, participates in conversation and answers questions appropriately -- \ -- / -- / -- \ 138 104 15 / 137 3.7(S) ; -- (P) 24 1.34 \ ASSESSMENT / PLAN Cr Castrejon is a 69 year old man with medical comorbidities significant for malignant neoplasm of the right lung (small cell) on atezolizumab (last treatment 12/08/2024) and recurrent enterocolitisdue to clostridium difficile who is being transferred to [facility] due to persistent diarrhea in s/o negative C Diff testing. Infectious testing has been performed and is negative. Biopsy revealed findings that are consistentwith ICI colitis and Oncology was consulted who recommended initiation of IV methylprednisolone 250mg x 3 days and then transition to oral prednisone with outpatient ICI follow up. He is symptomatically improving. Esophageal brushings positive for andrea albicans, with yellow plaques seen on EGD. He received dose of oral fluconazole 400 mg on 12/25 but this has not been repeated given absence of symptoms. Givenhigh risk secondary to immunosuppression, we will plan to treat. Today's Plan: Status post 250 mg IV methylprednisolone x 3 days Initiate 120 mg oral prednisone with ICI follow up this week Continue oral fluconazole 200 mg daily for 2 week course for esophageal candidiasis Discharge this evening 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) #ICI colitis #Esophageal candidiasis #Extensive stage small-cell lung cancer (cT3 N3 M1c) Adult regular diet Colonoscopy with evidence of ICI colitis Initiated IV methylprednisolone 250 mg, likely for 3 days (12/26-12/28), will touch base with Oncologyregarding tapering plan Discontinue oral budesonide while on above therapy For esophageal candidiasis, continue fluconazole 200 mg daily for 2 week course (EOT 01/07) Tylenol for pain Zofran for nausea Strict I/O, stool output monitoring # Acute kidney injury, now resolved # Hypokalemia # Hypomagnesemia # Metabolic acidosis, likely in the setting of diarrhea Likely in setting of severe hypovolemia Hold lisinopril in setting of ZAINAB and low volume Baseline Cr appears to potentially be around 1.30 Replete electrolytes prn Status post Isotonic bicarb fluid with prn lasix for metabolic acidosis with improvement # HTN # HLD # CAD (c/b PA, s/p PCI) # Carotic artery stenosis (s/p endarterectomy) # PAD # Lung cancer (SCLC) Continue PREPRESS STRIPPER bASA twice weekly Continue PREPRESS STRIPPER atorvastatin 40 mg daily Continue PREPRESS STRIPPER fish oil Continue PREPRESS STRIPPER metoprolol succinate 25 mg daily Continue PREPRESS STRIPPER MVN, folic acid, thiamine, vitamin D supplements # BPH PREPRESS STRIPPER tamsulosin 0.4 mg daily # GERD Continue PREPRESS STRIPPER omeprazole for now Plan discussed with Bonding Equipment Operator, Dr. Shaq Solano, who was present during crump portions of the evaluation today on GI Team B. The business system consultant agrees with the above plan and/or procedures unless otherwise indicated in their note. Yudi Motley M.D. Internal Medicine PGY-2 TROTYPE MOLDER * Princess Villatoro D.T.R. - 12/28/2024 1:46 PM CST Clinical Nutrition: Initial Assessment RECOMMENDATIONS REQUIRING MD/PROVIDER ORDER No changes at this time; continue current nutrition orders For questions about patient's nutritional care please contact pager [phone] on weekdays or [phone] on weekends/holidays. NUTRITION ASSESSMENT: Mr. Castrejon is a 69 y.o. male who was admitted for Diarrhea - thought to be ICI colitis. Note history of small cell lung cancer.. Note history of HTN, HLD, CAD, PA and PVD. Requested to see patient for evaluation of: length of stay per policy. Current Diet Order: Adult Diet Regular Discharge Diet for Adults Spoke with Cr this afternoon. He reports that appetite is going well and he is really liking the food here. Spot check on intake from 12/26:ate ~ 2000 calories and 54 g protein. He feels appetite is back to normal and denied nutrition concerns. Note that there were 2 weights 1 day apart several kg apart will monitor for a re-weigh to see which is more accurate. He did note that for 1 week PREPRESS STRIPPER he had lost weight and had a terrible appetite related to diarrhea.He notes that his usual weight is around 65 kg. No chewing or swallowing issues. ANTHROPOMETRICS: Height: 162.6 cm Admission Weight: 63 kg (12/21/2024) Current Weight: 59.5 kg BMI (Calculated): 22.5 kg/m?? ESTIMATED NEEDS: Total Calorie Needs: 2885-4435 calories/day Method to Estimate Energy Needs: kcal/kg (25-30 kcal/kg) Weight Used for Equation Calculations: 59.5 kg Total Protein Needs: 60 - 71 grams/day (Method to Estimate Protein Needs (g/kg): 1 - 1.2 gm/kg) Weight Used to Calculate Protein Needs (Kg): 59.5 kg Nutrition Diagnosis: Inadequate oral intake related to diarrhea 1 week PREPRESS STRIPPER as evidenced by possible several pound weightloss 1 week PREPRESS STRIPPER (await reweigh for confirmation) Nutrition Intervention: None needed Monitoring/Evaluation: Nutrition parameter to monitor: Meals/Supplement Intake, Weight Status TROTYPE MOLDER * Shaq Solano M.D. - 12/28/2024 1:32 PM CST Inpatient Progress Note 12/28/2024 Subjective: This is a supervisory note for Faviola Zuñiga MD. I have reviewed the available records, interviewed and examined the patient. I agree with the history, physical examination, and plan as outlined in Faviola Zuñiga MD's note dated today. Overnight he had no acute events. 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 Stool pathogen panel was negative. There was concern for ICI colitis as an explanation of her diarrhea. EGD and colonoscopy were performed and biopsies showed moderately active colitis with increased crypt apoptosis and granulomas with moderate active chronic ileitis with markedly increased apoptosis. Together, these were compatible for ICI enterocolitis. She was seen by the medical oncology ICI colitis service and we appreciate their assistance. The patient completed 3 days of IV solumedrol 250 mg daily. He has had significant improvement with this with stool frequency. He will transition to oral steroids today. #4 Acute kidney injury This is resolving with creatinine down to 1.18 this morning. #5 Andrea esophagitis Brushings with NIEVES positive for andrea esophagitis. We will treat with a 2 week course of fluconazole. #6 Disposition He will need to be observed today on oral steroids and if he does well we anticipate dismissal tomorrow with Med Onc ICI clinic follow up at the end of the week. Dr. Anderson is the fellow during this patient's hospitalization. TROTYPE MOLDER * Kurt Shah Jr., M.D., M.B.A. - 12/28/2024 11:37 AM CST ONCOLOGY CONSULT SERVICE: PROGRESS NOTE Reason for consult: ICI colitis Local Oncologist: No care steam hammer operator to display [facility]ologist(s): No care steam hammer operator to display SUBJECTIVE Events over 24 hrs: no change to history since last reported Now having formed bowel movements OBJECTIVE VITAL SIGNS: reviewed the current vital sign data as applicable. Physical Exam General: No acute distress, cooperative. HEENT: Normocephalic, extra-ocular motion and vision are grossly intact, hearing grossly intact. Cardiovascular: Regular rate, no peripheral edema appreciated, warm and well perfused. Chest/Pulmonary: No coughing or wheezing, on room air, normal work of breathing. Abdominal: Soft, non-distended Neurological: Alert, oriented to self and situation, ambulating DIAGNOSTICS Imaging: Reviewed Pathology: Reviewed Recent Labs 12/28/24 0552 12/27/24 0811 12/26/24 0931 12/25/24 0642 12/24/24 0841 HGB 9.2 L 9.8 L 9.7 L 9.7 L 9.5 L WBC 6.4 7.4 5.5 6.6 6.1 PLT 150 175 181 188 176 Recent Labs 12/28/24 0552 12/27/24 0811 12/26/24 0931 12/25/24 0642 12/24/24 0841 NA 139 139 139 140 139 KSERUM 3.4 L 3.5 L 4.0 3.9 3.4 L CL 108 H 110 H 114 H 115 H 114 H BICARB 23 17 L 14 L 15 L 18 L BUN 11 9 6 L 6 L 6 L CREATININE 1.18 1.30 1.17 1.27 1.14 Recent Labs 12/21/24 2100 ALT 30 AST 23 ASSESSMENT / PLAN Cr Castrejon is a 69 y.o. male with an oncology history as noted. He presents with profusediarrhea x 3 weeks in the setting of SCLC s/p carboplatin, etoposide, atezolimumab and now on maintenance atezolizumab. He does have a history in 2023 of collagenous colitis and C. Diff requiring steroids and fecal transplant in 06/2024. Currently, given his profuse diarrhea with negative infectiouswork-up and colonoscopic biopsies showing suspicion for ICI-related enterocolitis, it is most likely that this current episode of diarrhea is a delayed presentation of ICI toxicity. We recommended starting immunosuppression with steroids. He was initiated on solumedrol 250 mg starting 12/26 and imodium was discontinued. His stool frequency has improved and he is now having formed stools. We will recommend transitioning him to oral prednisone 2 mg/kg starting tomorrow morning. Wewill need to monitor him for at least one day on oral steroids after which he can be discharged. We will arrange follow up with the ICI team at the end of the week. No matching staging information was found for the patient. Oncology recommendations to the primary team: Transition to oral prednisone 120 mg daily Will arrange ICI follow up for the end of the week (this can be virtually) Follow hepatitis profile and quantiferon-gold (TB) testing Oncology plan for following: Oncology Consults will continue to see this patient daily. Outpatient oncology follow-up indicated (Onc Consult staff will message [facility] ,12, Onc Inbasket to arrange for this oncology-specific followup): A. Indication: ICI-colitis B. Clinic/Physician: ICI toxicity team C. Testing: N/A Communication: Treatment plan reviewed with Mr. Castrejon, who expressed understanding. All questionsanswered to patient's satisfaction. Staffing: This case was staffed with Dr. Layne who is in agreement with this plan. Paging: Please page Oncology Consults Oncall with any questions at [phone] (service pager). Lc 7A-7P, Robinson Cameron Bonding Equipment Operator on Consult service Was this consult thought to be associated with ICI toxicity? Yes Was there an intervention related to an ICI toxicity recommended? Yes Kurt Shah Jr., M.D., M.B.A. TROTYPE MOLDER * Favoila Caraballo M.D. 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 INTERVAL EVENTS No acute events VSS, afebrile 1.9 L urine Last BM Date: 12/27/24 Unmeasured Stool Occurrence: 2 (12/27/24 2200) Stool frequency improving CBC in keeping with previous trend Elevated bicarb in comparison to prior, hypokalemia QuantiFERON pending OBJECTIVE General: Alert, no acute distress Lungs: Clear to auscultation Heart: Regular rate and rhythm. No murmurs. 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 Infectious testing has been performed and is negative. Biopsy revealed findings that are consistentwith ICI colitis and Oncology was consulted who recommended initiation of IV methylprednisolone 250mg. He is reportedly having less stools. Esophageal brushings positive for andrea albicans, with yellow plaques seen on EGD. He received dose of oral fluconazole 400 mg on 12/25 but this has not been repeated given absence of symptoms. Givenhigh risk secondary to immunosuppression, we will plan to treat. 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) #ICI colitis #Esophageal candidiasis #Extensive stage small-cell lung cancer (cT3 N3 M1c) Adult regular diet Colonoscopy with evidence of ICI colitis Initiated IV methylprednisolone 250 mg, likely for 3 days (12/26-12/28), will touch base with Oncologyregarding tapering plan Discontinue oral budesonide while on above therapy For esophageal candidiasis, continue fluconazole 200 mg daily for 2 week course Tylenol for pain Zofran for nausea Strict I/O, stool output monitoring # Acute kidney injury, now resolved # Hypokalemia # Hypomagnesemia # Metabolic acidosis, likely in the setting of diarrhea Likely in setting of severe hypovolemia Hold lisinopril in setting of ZAINAB and low volume Baseline Cr appears to potentially be around 1.30 Replete electrolytes prn Status post Isotonic bicarb fluid with prn lasix for metabolic acidosis with improvement # HTN # HLD # CAD (c/b PA, s/p PCI) # Carotic artery stenosis (s/p endarterectomy) # PAD # Lung cancer (SCLC) Continue PREPRESS STRIPPER bASA twice weekly Continue PREPRESS STRIPPER atorvastatin 40 mg daily Continue PREPRESS STRIPPER fish oil Continue PREPRESS STRIPPER metoprolol succinate 25 mg daily Continue PREPRESS STRIPPER MVN, folic acid, thiamine, vitamin D supplements # BPH PREPRESS STRIPPER tamsulosin 0.4 mg daily # GERD Continue PREPRESS STRIPPER omeprazole for now Plan discussed with Bonding Equipment Operator, Dr. Shaq Solano, who was present during crump portions of the evaluation today on GI Team B. The business system consultant agrees with the above plan and/or procedures unless otherwise indicated in their note. Faviola Caraballo M.D. Internal Medicine PGY-2 TROTYPE MOLDER * Samra Layne M.D. - 12/27/2024 9:41 AM CST ONCOLOGY CONSULT SERVICE: PROGRESS NOTE Reason for consult: ICI colitis Local Oncologist: Dr. Nascimento [facility] Oncologist(s): No care steam hammer operator to display SUBJECTIVE Events over 24 hrs: Pt reporting less BM, more formed; much less urgency OBJECTIVE VITAL SIGNS: reviewed the current vital sign data as applicable. Physical Exam General: No acute distress, cooperative. HEENT: Normocephalic, extra-ocular motion and vision are grossly intact, hearing grossly intact. Cardiovascular: Regular rate, no peripheral edema appreciated, warm and well perfused. Chest/Pulmonary: No coughing or wheezing, on room air, normal work of breathing. Abdominal: Soft, non-distended Neurological: Alert, oriented to self and situation, ambulating DIAGNOSTICS Imaging: Reviewed Pathology: Reviewed Labs reviewed Hep panel negative, TB test still pending ASSESSMENT / PLAN Cr Castrejon is a 69 y.o. male with an oncology history as noted. He presents with profusediarrhea x 3 weeks in the setting of SCLC s/p carboplatin, etoposide, atezolimumab and now on maintenance atezolizumab. He does have a history in 2023 of collagenous colitis and C. Diff requiring steroids and fecal transplant in 06/2024. Currently, given his profuse diarrhea with negative infectiouswork-up and colonoscopic biopsies showing suspicion for ICI-related enterocolitis, it is most likely that this current episode of diarrhea is a delayed presentation of ICI toxicity. We recommended starting immunosuppression with steroids. He was initiated on solumedrol 250 mg starting 12/26 and imodium was discontinued. If his stool urgency/frequency or volume worsens over the weekend, he should be treated with infliximab in addition to the steroids. He will keep a count of his bowels and the frequency. Overall he is improving with steroids. Oncology recommendations to the primary team: no changes today Continue 250mg IV solumedrol daily Follow hepatitis profile and quantiferon-gold (TB) testing (TB testing pending) If stool frequency or volume worsens, start infliximab along with steroids (assuming hepatitis/TB negative) Oncology plan for following: Oncology Consults will continue to see this patient daily. Will round Saturday morning with ICI team with further plans to follow. Outpatient oncology follow-up indicated (Onc Consult staff will message [facility] 10,12, Onc [place] to arrange for this oncology-specific followup): A. Indication: ICI-colitis B. Clinic/Physician: ICI toxicity team C. Testing: N/A Communication: Treatment plan reviewed with Mr. Castrejon, who expressed understanding. All questionsanswered to patient's satisfaction. Paging: Please page Oncology Consults Oncall with any questions at [phone] (service pager). M-F 7A-7P, [facility] Bonding Equipment Operator on Consult service Was this consult thought to be associated with ICI toxicity? Yes Was there an intervention related to an ICI toxicity recommended? Yes TROTYPE MOLDER * Shaq Solano M.D. - 12/27/2024 9:30 AM CST Inpatient Progress Note 12/27/2024 Subjective: This is a supervisory note for Yudi Motley MD. I have reviewed the available records, interviewedand examined the patient. I agree with the history, physical examination, and plan as outlined in Yudi Motley MD's note dated today. Overnight he had no acute events. 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 Stool pathogen panel was negative. There was concern for ICI colitis as an explanation of her diarrhea. EGD and colonoscopy were performed and biopsies showed moderately active colitis with increased crypt apoptosis and granulomas with moderate active chronic ileitis with markedly increased apoptosis. Together, these were compatible for ICI enterocolitis. She was seen by the medical oncology ICI colitis service and we appreciate their assistance. The patient has been started on IV solumedrol 250 mg daily. He has had significant improvement with this with stool frequency. We anticipate 3 days of IV steroids prior to transition to oral, but this is pending clinical course. #4 Acute kidney injury Creatinine is pending this morning but was improved yesterday. #5 Andrea esophagitis Brushings with NIEVES positive for andrea esophagitis. We will treat with a 2 week course of fluconazole. #6 Disposition This is pending clinical course with anticipated possible dismissal Saturday with taper to oral regimen if he continues to do well. Dr. Anderson is the fellow during this patient's hospitalization. TROTYPE MOLDER TROTYPE MOLDER * Yudi Motley M.D. 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 INTERVAL EVENTS Discussed andrea albicans on esophageal brushings with pharmacy, initiated oral fluconazole 200 mgdaily (QTc 440) Reported fluid overload following steroid administration yesterday, received 40 mg IV lasix overnight VSS, afebrile Stool frequency still high (17 over 24 hours) but improved from prior, and with less urgency, with at least one stool reported to be formed Labs significant for potassium 3.5, bicarb 17 (improved from 14), Cr 1.3 (1.17), Mag 1.6, CBC unchanged Hepatitis B serologies negative, QuantiFERON pending OBJECTIVE General: Alert, no acute distress Lungs: Clear to auscultation Heart: Regular rate and rhythm. No murmurs. 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 Infectious testing has been performed and is negative. Biopsy revealed findings that are consistentwith ICI colitis and Oncology was consulted who recommended initiation of IV methylprednisolone 250mg. He is reportedly having less stools. Esophageal brushings positive for andrea albicans, with yellow plaques seen on EGD. He received dose of oral fluconazole 400 mg on 12/25 but this has not been repeated given absence of symptoms. Givenhigh risk secondary to immunosuppression, we will plan to treat. 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) #ICI colitis #Esophageal candidiasis #Extensive stage small-cell lung cancer (cT3 N3 M1c) Adult regular diet Colonoscopy with evidence of ICI colitis Initiated IV methylprednisolone 250 mg, likely for 3 days (12/26-12/28), will touch base with Oncologyregarding tapering plan Discontinue oral budesonide while on above therapy For esophageal candidiasis, continue fluconazole 200 mg daily for 2 week course Tylenol for pain Zofran for nausea Strict I/O, stool output monitoring # Acute kidney injury, now resolved # Hypokalemia # Hypomagnesemia # Metabolic acidosis, likely in the setting of diarrhea Likely in setting of severe hypovolemia Hold lisinopril in setting of ZAINAB and low volume Baseline Cr appears to potentially be around 1.30 Replete electrolytes prn Isotonic bicarb fluid with prn lasix for metabolic acidosis # HTN # HLD # CAD (c/b PA, s/p PCI) # Carotic artery stenosis (s/p endarterectomy) # PAD # Lung cancer (SCLC) Continue PREPRESS STRIPPER bASA twice weekly Continue PREPRESS STRIPPER atorvastatin 40 mg daily Continue PREPRESS STRIPPER fish oil Continue PREPRESS STRIPPER metoprolol succinate 25 mg daily Continue PREPRESS STRIPPER MVN, folic acid, thiamine, vitamin D supplements # BPH PREPRESS STRIPPER tamsulosin 0.4 mg daily # GERD Continue PREPRESS STRIPPER omeprazole for now Plan discussed with Bonding Equipment Operator, Dr. Shaq Solano, who was present during crump portions of the evaluation today on GI Team B. The business system consultant agrees with the above plan and/or procedures unless otherwise indicated in their note. Yudi Motley M.D. Internal Medicine PGY-2 TROTYPE MOLDER TROTYPE MOLDER TROTYPE MOLDER TROTYPE MOLDER * Kurt Shah Jr., M.D., M.B.A. - 12/26/2024 12:38 PM CST ONCOLOGY CONSULT SERVICE: PROGRESS NOTE Reason for consult: ICI colitis Local Oncologist: No care steam hammer operator to display [facility] Oncologist(s): No care steam hammer operator to display SUBJECTIVE Events over 24 hrs: He reports that he had a formed stool this morning for the first time in about 3 weeks prior to receiving his steroids OBJECTIVE VITAL SIGNS: reviewed the current vital sign data as applicable. Physical Exam General: No acute distress, cooperative. HEENT: Normocephalic, extra-ocular motion and vision are grossly intact, hearing grossly intact. Cardiovascular: Regular rate, no peripheral edema appreciated, warm and well perfused. Chest/Pulmonary: No coughing or wheezing, on room air, normal work of breathing. Abdominal: Soft, non-distended Neurological: Alert, oriented to self and situation, ambulating DIAGNOSTICS Imaging: Reviewed Pathology: Reviewed Recent Labs 12/26/24 0931 12/25/24 0642 12/24/24 0841 12/23/24 0654 12/22/24 1045 HGB 9.7 L 9.7 L 9.5 L 10.1 L 10.3 L WBC 5.5 6.6 6.1 5.6 7.3 PLT 181 188 176 220 213 Recent Labs 12/26/24 0931 12/25/24 0642 12/24/24 0841 12/23/24 0654 12/22/24 1045 NA 139 140 139 139 139 KSERUM 4.0 3.9 3.4 L 4.2 4.1 CL 114 H 115 H 114 H 115 H 112 H BICARB 14 L 15 L 18 L 14 L 19 L BUN 6 L 6 L 6 L 8 9 CREATININE 1.17 1.27 1.14 1.18 1.15 Recent Labs 12/21/24 2100 ALT 30 AST 23 ASSESSMENT / PLAN Cr Castrejon is a 69 y.o. male with an oncology history as noted. He presents with profusediarrhea x 3 weeks in the setting of SCLC s/p carboplatin, etoposide, atezolimumab and now on maintenance atezolizumab. He does have a history in 2023 of collagenous colitis and C. Diff requiring steroids and fecal transplant in 06/2024. Currently, given his profuse diarrhea with negative infectiouswork-up and colonoscopic biopsies showing suspicion for ICI-related enterocolitis, it is most likely that this current episode of diarrhea is a delayed presentation of ICI toxicity. We recommended starting immunosuppression with steroids. He was initiated on solumedrol 250 mg starting 12/26 and imodium was discontinued. If his stool urgency/frequency or volume worsens over the weekend, he should be treated with infliximab in addition to the steroids. He will keep a count of his bowels and the frequency. No matching staging information was found for the patient. Oncology recommendations to the primary team: Continue 250mg IV solumedrol daily Follow hepatitis profile and quantiferon-gold (TB) testing If stool frequency or volume worsens, start infliximab along with steroids (assuming hepatitis/TB negative) Oncology plan for following: Oncology Consults will continue to see this patient daily. Outpatient oncology follow-up indicated (Onc Consult staff will message [facility] ,12, Onc Inbasket to arrange for this oncology-specific followup): A. Indication: ICI-colitis B. Clinic/Physician: ICI toxicity team C. Testing: N/A Communication: Treatment plan reviewed with Mr. Castrejon, who expressed understanding. All questionsanswered to patient's satisfaction. Staffing: This case was staffed with Dr. Layne who is in agreement with this plan. Paging: Please page Oncology Consults Oncall with any questions at [phone] (service pager). Lc 7A-7P, [facility] Bonding Equipment Operator on Consult service Was this consult thought to be associated with ICI toxicity? Yes Was there an intervention related to an ICI toxicity recommended? Yes Kurt Shah Jr., M.D., M.B.A. TROTYPE MOLDER * Kaye Sheehan, Roxana., R.Ph., [facility] - 12/26/2024 11:10 AM CST Pharmacist Progress Note Reason for admission: profuse watery diarrhea. Transferred from OSH. PMH: HTN, HLD CAD, carotid artery stenosis, PAD, BPH, small cell lung cancer (on immunotherapy), and recurrent enterocolitis due to Cdif (s/p FMT Jun 2024). OBJECTIVE Home medications reviewed by Pharmacist Held: Pepto-bismol Changed: Acetaminophen increased New: budesonide (paused in outpatient) Interchange: PPI Prophylaxis: Enoxaparin prophylaxis ASSESSMENT / PLAN Diarrhea - presumably 2/2 ICI enterocolitis in the setting of maintenance atezolizumab for SCLC. S/p biopsy 12/24 suggestive of ICI enterocolitis. Oncology consulted - methylprednisolone 250 mg IV daily (12/26 - present) w/ longitudinal steroid plan pending. W/ improvement in stooling over the last 24 hours, started on budesonide EC 9 mg/d. Continues FiberCon once daily Andrea Albicans Esophageal Brushing - received fluconazole 400 mg PO x 1 on 12/25 with subsequent dosing discontinued. Evaluate need for antifungal treatment for esophageal candidiasis - systemic therapy would be preferred if possible given esophageal involvement per the IDSA Candidiasis Guidelines CKD - SCr baseline 1.1-1.3 mg/dL - at baseline (though reportedly had ZAINAB at OSH). S/p IV fluids w/improvement in Scr back to baseline CAD, HTN, Carotid Artery Stenosis - Unsure why but he only takes aspirin 81mg 2x/week - continued here. Continues home atorvastatin, metoprolol. He is not on an ACEI/ARB. Kaye Sheehan Pharm.D., R.Ph., BCPS TROTYPE MOLDER * Shaq Solano M.D. - 12/26/2024 10:41 AM CST Inpatient Progress Note 12/26/2024 Subjective: This is a supervisory note for Yudi Motley MD. I have reviewed the available records, interviewedand examined the patient. I agree with the history, physical examination, and plan as outlined in Yudi Motley MD's note dated today. Overnight he had no acute events. Objective: Temperature: [36.5 ??C-36.9 ??C] 36.5 ??C Resp Rate: [15-17] 15 Blood Pressure: (105-110)/(64-67) 106/64 SpO2: [97 %-98 %] 98 % Pulse Rate: [80-90] 82 Assessment / Plan: #1 Diarrhea likely secondary to ICI enterocolitis #2 Small cell lung CA #3 History of recurrent c difficile s/p FMT (06/2024) He was admitted with diarrhea in the setting of recurrent dc difficile. Stool pathogen panel was negative. There was concern for ICI colitis as an explanation of her diarrhea. EGD and colonoscopy were performed and biopsies showed moderately active colitis with increased crypt apoptosis and granulomas with moderate active chronic ileitis with markedly increased apoptosis. Together, these were compatible for ICI enterocolitis. She was seen by the medical oncology ICI colitis service and we appreciate their assistance. The patient has been started on IV solumedrol 250mg daily. He has had significant improvement with this with stool frequency down from 20 bowel movements a day to 10. We anticipate 3 days of IV steroids prior to transition to oral, but will clarify with the ICI medical oncology team. #4 Acute kidney injury Creatinine is pending this morning. We are providing IVFs and monitoring stool output as we suspectthis is prerenal. #5 Disposition This is pending clinical course with anticipated possible dismissal Saturday. Dr. Anderson is the fellow during this patient's hospitalization. TROTYPE MOLDER * Yudi Motley M.D. 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 INTERVAL EVENTS No acute events overnight Biopsy consistent with ICI-related gastroenterocolitis Onc consulted, recommended starting IV 250 mg solumetrol daily, as well as obtaining hepatitis profile, quantiferon gold testing, consider starting infliximab along with steroids if stool frequency worsening GI pathogen panel negative (12/22) VSS, afebrile 7 unmeasured stool occurrences per patient report Fungal culture from esophagus with andrea albicans, no pain with swallowing per patient report, patchy yellow plaques were found in the entire esophagus Labs significant for stable anemia, hyperchloremic metabolic acidosis (Cl 114, bicarb 14, Cr 1.17 stable, albumin 2.8 OBJECTIVE General: Alert, no acute distress Lungs: Clear to auscultation Heart: Regular rate and rhythm. No murmurs. 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 Infectious testing has been performed and is negative. Biopsy revealed findings that are consistentwith ICI colitis and Oncology was consulted who recommended initiation of IV methylprednisolone 250mg. He is reportedly having less stools. Esophageal brushings positive for andrea albicans, with yellow plaques seen on EGD. He received dose of oral fluconazole 400 mg on 12/25 but this has not been repeated given absence of symptoms. Givenhigh risk secondary to immunosuppression, we will plan to give an additional day and assess need for full course of therapy. 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) #ICI colitis #Query esophageal candidiasis #Extensive stage small-cell lung cancer (cT3 N3 M1c) Adult regular diet Colonoscopy with evidence of ICI colitis Initiated IV methylprednisolone 250 mg, likely for 3 days (12/26-12/28), will touch base with Oncologyregarding tapering plan Discontinue oral budesonide while on above therapy For esophageal candidiasis, will repeat ECG to check QTc, and initiate fluconazole 200 mg daily with additional discussion regarding continuing therapy given absence of symptoms Tylenol for pain Zofran for nausea Strict I/O, stool output monitoring # Acute kidney injury, now resolved # Hypokalemia # Metabolic acidosis, likely in the setting of diarrhea - likely in setting of severe hypovolemia - hold lisinopril in setting of ZAINAB and low volume - Baseline Cr appears to potentially be around 1.30 - Replete electrolytes prn - consider bicarb containing fluid # HTN # HLD # CAD (c/b PA, s/p PCI) # Carotic artery stenosis (s/p endarterectomy) # PAD # Lung cancer (SCLC) Continue PREPRESS STRIPPER bASA twice weekly Continue PREPRESS STRIPPER atorvastatin 40 mg daily Continue PREPRESS STRIPPER fish oil Continue PREPRESS STRIPPER metoprolol succinate 25 mg daily Continue PREPRESS STRIPPER MVN, folic acid, thiamine, vitamin D supplements # BPH PREPRESS STRIPPER tamsulosin 0.4 mg daily # GERD Continue PREPRESS STRIPPER omeprazole for now Plan discussed with Bonding Equipment Operator, Dr. Shaq Solano, who was present during crump portions of the evaluation today on GI Team B. The business system consultant agrees with the above plan and/or procedures unless otherwise indicated in their note. Yudi Motley M.D. Internal Medicine PGY-2 TROTYPE MOLDER TROTYPE MOLDER TROTYPE MOLDER * Paulette Sarah M.D., M.S. - 12/25/2024 3:04 PM CST GASTROENTEROLOGY & HEPATOLOGY B TEAM SERVICE - PROGRESS NOTE: SUBJECTIVE No acute events overnight. Patient continues to have diarrhea. Pathology results concerning for ICIcolitis. OBJECTIVE General: Alert, no acute distress Lungs: Clear to auscultation Heart: Regular rate and rhythm. No murmurs. 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 The C. Diff testing was negative outside, will repeat given his history of recurrent C. Diff, and it will also look for other infectious etiologies. Other causes could be ICI-induced enterocolitis from atezolizumab, SIBO, IBD among others. If we can't find an infectious agent, I wonder if (1) CT enterography would be helpful to see if there is any pattern to point to one of these alternate etiologies and (2) colonoscopy with biopsies particularly to see if something like ICI colitis is at play.Stool pathogen panel negative. In the meantime, stool pathogen panel is in process. Patient reports that they have been on their current cancer treatment for two weeks. Calling [facility] they report that they patient has been on this treatment since May of 2023. He gets atezolizumab every 3 weeks. His last treatment was on 12/08/24. Unfortunately, we are unable to fit the patient in for an EGD and colonoscopy today, these will be performed on Sunday 12/24. 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 We are currently awaiting oncology recs as to whether we are able to discharge the patient or not. 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 Awaiting to hear back from onc regarding next steps. 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 Last notes I have available regarding his cancer is from radiology oncology on 09/26/2023 which he was tolerating radiation treatment well. Patient is currently taking atezolizumab for hiscancer treatment. This drug has been shown to have associated diarrhea and colitis. I will curbsideoncology/ e-consult to ask them if delay in diarrhea and colitis can happen as he has been on treatment for about 1.5 yr. # Acute kidney injury, now resolved # Hypokalemia # Metabolic acidosis, resolved - likely in setting of severe hypovolemia - hold lisinopril in setting of ZAINAB and low volume - Baseline Cr appears to potentially be around 1.30 - Replete electrolytes prn # HTN # HLD # CAD (c/b PA, s/p PCI) # Carotic artery stenosis (s/p endarterectomy) # PAD # Lung cancer (SCLC) Continue PREPRESS STRIPPER bASA twice weekly Continue PREPRESS STRIPPER atorvastatin 40 mg daily Continue PREPRESS STRIPPER fish oil Continue PREPRESS STRIPPER metoprolol succinate 25 mg daily Continue PREPRESS STRIPPER MVN, folic acid, thiamine, vitamin D supplements # BPH PREPRESS STRIPPER tamsulosin 0.4 mg daily # GERD Continue PREPRESS STRIPPER omeprazole for now Plan discussed with Bonding Equipment Operator, Bismark Bentley M.D., who was present during crump portions of the evaluation today on GI Team B. The business system consultant agrees with the above plan and/or procedures unless otherwise indicated in their note. TROTYPE MOLDER * Bismark Bentley M.D. - 12/25/2024 10:40 AM CST I evaluated the patient. I agree with the note of Dr. Paulette Sarah dated December 25, 2024. I have discussed the evaluation and management plan with the patient and the rest of the GI-B team including Dr. Ambika Nguyễn. HISTORY OF PRESENT ILLNESS He was initiated on loperamide last night with a decrease in stool output. He is comfortable this morning, and he is tolerating oral intake. He remains afebrile and normotensive. DIAGNOSTICS Laboratory studies show a stable complete blood count. ASSESSMENT / PLAN #1 Small cell lung cancer on immunotherapy with immune checkpoint inhibitor #2 Acute diarrhea #3 History of recurrent Clostridioides difficile infection #4 Coronary artery disease He underwent upper endoscopy and colonoscopy yesterday to evaluate for immune checkpoint inhibitor enterocolitis. There were no significant inflammatory mucosal changes seen on upper endoscopy or colonoscopy. The colon preparation was poor. Biopsies were obtained from the small bowel and colon and are pending at the time of this dictation. There was a concern for Andrea esophagitis. On review of the endoscopic pictures of the esophagus,this appears to be minimal if non-existent. Patient has no dysphagia and he will not be continued on treatment with fluconazole. 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 Biopsies are pending at this time. He will be discharged from the hospital with instructions to use loperamide 2 mg after each loose bowel movement up to 12 mg per day. He will follow upwith Dr. Sergei Martinez. TROTYPE MOLDER TROTYPE MOLDER * Bismark Bentley M.D. - 12/24/2024 10:55 AM CST I evaluated the patient. I agree with the note of Dr. Paulette Sarah dated December 24, 2024. I have discussed the evaluation and management plans with the patient and the rest of the GI-A Team, including Dr. Ambika Nguyễn. HISTORY OF PRESENT ILLNESS There were no events overnight. Patient has been able to take the bowel preparation for a planned colonoscopy. He will take additional bowel preparation this morning to adhere to split fashion administration for a colonoscopy this afternoon. He will also undergo upper endoscopy. ASSESSMENT / PLAN #1 Small cell lung cancer on immunotherapy with immune checkpoint inhibitor #2 Acute diarrhea #3 History of recurrent Clostridioides difficile infection #4 Coronary artery disease His clinical status remains stable. He will complete a bowel preparation this morning for a plannedcolonoscopy and upper endoscopy this afternoon. TROTYPE MOLDER TROTYPE MOLDER * Pualette Sarah M.D., M.S. - 12/24/2024 7:13 AM CST GASTROENTEROLOGY & HEPATOLOGY B TEAM SERVICE - PROGRESS NOTE: SUBJECTIVE No acute events overnight. Undergoing EGD and colonoscopy today. OBJECTIVE General: Alert, no acute distress Lungs: Clear to auscultation Heart: Regular rate and rhythm. No murmurs. 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 The C. Diff testing was negative outside, will repeat given his history of recurrent C. Diff, and it will also look for other infectious etiologies. Other causes could be ICI-induced enterocolitis from atezolizumab, SIBO, IBD among others. If we can't find an infectious agent, I wonder if (1) CT enterography would be helpful to see if there is any pattern to point to one of these alternate etiologies and (2) colonoscopy with biopsies particularly to see if something like ICI colitis is at play.Stool pathogen panel negative. In the meantime, stool pathogen panel is in process. Patient reports that they have been on their current cancer treatment for two weeks. Calling [facility] they report that they patient has been on this treatment since May of 2023. He gets atezolizumab every 3 weeks. His last treatment was on 12/08/24. Unfortunately, we are unable to fit the patient in for an EGD and colonoscopy today, these will be performed on Sunday 12/24. We will follow-up results of procedure today. 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 Last notes I have available regarding his cancer is from radiology oncology on 09/26/2023 which he was tolerating radiation treatment well. Patient is currently taking atezolizumab for hiscancer treatment. This drug has been shown to have associated diarrhea and colitis. I will curbsideoncology/ e-consult to ask them if delay in diarrhea and colitis can happen as he has been on treatment for about 1.5 yr. # Acute kidney injury, now resolved # Hypokalemia # Metabolic acidosis, resolved - likely in setting of severe hypovolemia - hold lisinopril in setting of ZAINAB and low volume - Baseline Cr appears to potentially be around 1.30 - Replete electrolytes prn # HTN # HLD # CAD (c/b PA, s/p PCI) # Carotic artery stenosis (s/p endarterectomy) # PAD # Lung cancer (SCLC) Continue PREPRESS STRIPPER bASA twice weekly Continue PREPRESS STRIPPER atorvastatin 40 mg daily Continue PREPRESS STRIPPER fish oil Continue PREPRESS STRIPPER metoprolol succinate 25 mg daily Continue PREPRESS STRIPPER MVN, folic acid, thiamine, vitamin D supplements # BPH PREPRESS STRIPPER tamsulosin 0.4 mg daily # GERD Continue PREPRESS STRIPPER omeprazole for now Plan discussed with Bonding Equipment Operator, Bismark Bentley M.D., who was present during crump portions of the evaluation today on GI Team B. The business system consultant agrees with the above plan and/or procedures unless otherwise indicated in their note. TROTYPE MOLDER * Bismark Bentley M.D. - 12/23/2024 10:51 AM CST I have evaluated the patient. I agree with the note. Of Dr. Pina Dorado dated December 23, 2024. Maury discussed the evaluation and management plans with the patient and the rest the GI-B Team including Dr. Ambika Nguyễn. HISTORY OF PRESENT ILLNESS He is tolerating oral intake. He. Continues to have nonbloody diarrhea. He remains afebrile and normotensive. ASSESSMENT / PLAN #1 Small cell lung cancer on immunotherapy with immune checkpoint inhibitor #2 Acute diarrhea #3 History of recurrent Clostridium difficile infection #4 Coronary artery disease He continues to have watery diarrhea. A stool pathogen panel is negative and there is concern for immune checkpoint inhibitor enterocolitis. He will be on a clear liquid diet today. We will be given colonoscopy bowel prep in split fashion starting this evening for planned colonoscopy and upper endoscopy tomorrow. TROTYPE MOLDER TROTYPE MOLDER * Pina Dorado M.D., M.P.H. - 12/23/2024 7:06 AM CST GASTROENTEROLOGY & HEPATOLOGY B TEAM SERVICE - PROGRESS NOTE: SUBJECTIVE - admitted overnight - continues to have copious amounts of diarrhea, 6x this morning OBJECTIVE General: Alert, no acute distress Lungs: Clear to auscultation Heart: Regular rate and rhythm. No murmurs. 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 The C. Diff testing was negative outside, will repeat given his history of recurrent C. Diff, and it will also look for other infectious etiologies. Other causes could be ICI-induced enterocolitis from atezolizumab, SIBO, IBD among others. If we can't find an infectious agent, I wonder if (1) CT enterography would be helpful to see if there is any pattern to point to one of these alternate etiologies and (2) colonoscopy with biopsies particularly to see if something like ICI colitis is at play.Stool pathogen panel negative. Concern that his treat In the meantime, stool pathogen panel is in process. Patient reports that they have been on their current cancer treatment for two weeks. Calling [facility] they report that they patient has been on this treatment since May of 2023. He gets atezolizumab every 3 weeks. His last treatment was on 12/08/24. Unfortunately, we are unable to fit the patient in for an EGD and colonoscopy today, these will be performed on Sunday 12/24. He will prep for the colonoscopy tonight with 2/3 prep in themorning of 12/24, 1/3 prep. 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 Last notes I have available regarding his cancer is from radiology oncology on 09/26/2023 which he was tolerating radiation treatment well. Patient is currently taking atezolizumab for hiscancer treatment. This drug has been shown to have associated diarrhea and colitis. I will curbsideoncology/ e-consult to ask them if delay in diarrhea and colitis can happen as he has been on treatment for about 1.5 yr. # Acute kidney injury, now resolved # Hypokalemia, resolved # Metabolic acidosis, resolved - likely in setting of severe hypovolemia - hold lisinopril in setting of ZAINAB and low volume - maintenance fluids 100 mL/h, we will continue these through the night as he will prep for colonoscopy and have fluid losses this way - Baseline Cr appears to potentially be around 1.30 # HTN # HLD # CAD (c/b PA, s/p PCI) # Carotic artery stenosis (s/p endarterectomy) # PAD # Lung cancer (SCLC) Continue PREPRESS STRIPPER bASA twice weekly Continue PREPRESS STRIPPER atorvastatin 40 mg daily Continue PREPRESS STRIPPER fish oil Continue PREPRESS STRIPPER metoprolol succinate 25 mg daily Continue PREPRESS STRIPPER MVN, folic acid, thiamine, vitamin D supplements # BPH PREPRESS STRIPPER tamsulosin 0.4 mg daily # GERD Continue PREPRESS STRIPPER omeprazole for now Plan discussed with Bonding Equipment Operator, Bismark Bentley M.D., who was present during crump portions of the evaluation today on GI Team B. The business system consultant agrees with the above plan and/or procedures unless otherwise indicated in their note. Annel Dorado M.D., M.P.H. 12/23/2024 TROTYPE MOLDER * Melinda Dallas, Pharm.DFelicia, R.Ph., BCPS - 12/22/2024 7:14 AM CST Pharmacist Progress Note Reason for admission: profuse watery diarrhea. Transferred from OSH. PMH: HTN, HLD CAD, carotid artery stenosis, PAD, BPH, small cell lung cancer (on immunotherapy), and recurrent enterocolitis due to Cdif (s/p FMT Jun 2024). OBJECTIVE Home medications reviewed by Pharmacist Held: Pepto-bismol, fish oil, Changed: Acetaminophen increased Prophylaxis: Enoxaparin prophylaxis ASSESSMENT / PLAN Diarrhea. Working up. GIPP negative. Unclear what he is on for lung cancer but ?ICI colitis vs SIBOvs other. Recently started on budesonide 9mg daily, continued this for now as well as FiberCon to bulk stools. Assess whether budesonide needed after EGD/colonoscopy for biopsies. Service planning on obtaining records for what immunotherapy he is on. CKD. SCr baseline 1.1-1.3 - at baseline (though reportedly had ZAINAB at OSH). IVF on board. CAD, HTN, carotid artery stenosis. Unsure why but he only takes aspirin 81mg 2x/week - continued here. Continues home atorvastatin, metoprolol. He is not on an ACEI/ARB. Simi Dallas Pharm.D., R.Ph., BCPS TROTYPE MOLDER * Pina Dorado M.D., M.P.H. - 12/22/2024 6:12 AM CST GASTROENTEROLOGY & HEPATOLOGY B TEAM SERVICE - PROGRESS NOTE: SUBJECTIVE - admitted overnight - continues to have copious amounts of diarrhea, 6x this morning OBJECTIVE General: Alert, no acute distress Lungs: Clear to auscultation Heart: Regular rate and rhythm. No murmurs. 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 The C. Diff testing was negative outside, will repeat given his history of recurrent C. Diff, and it will also look for other infectious etiologies. Other causes could be ICI-induced enterocolitis from atezolizumab, SIBO, IBD among others. If we can't find an infectious agent, I wonder if (1) CT enterography would be helpful to see if there is any pattern to point to one of these alternate etiologies and (2) colonoscopy with biopsies particularly to see if something like ICI colitis is at play.Stool pathogen panel negative. Concern that his treat In the meantime, stool pathogen panel is in process. Patient reports that they have been on their current cancer treatment for two weeks. Calling [facility] they report that they patient has been on this treatment since May of 2023. He gets atezolizumab every 3 weeks. His last treatment was on 12/08/24. 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 Last notes I have available regarding his cancer is from radiology oncology on 09/26/2023 which he was tolerating radiation treatment well. Patient is currently taking atezolizumab for hiscancer treatment. This drug has been shown to have associated diarrhea and colitis. I will curbsideoncology/ e-consult to ask them if delay in diarrhea and colitis can happen as he has been on treatment for about 1.5 yr. # Acute kidney injury, now resolved # Hypokalemia, resolved # Metabolic acidosis, resolved - likely in setting of severe hypovolemia - hold lisinopril in setting of ZAINAB and low volume - maintenance fluids 100 mL/h, we will continue these through the night as he will prep for colonoscopy and have fluid losses this way - Baseline Cr appears to potentially be around 1.30 # HTN # HLD # CAD (c/b PA, s/p PCI) # Carotic artery stenosis (s/p endarterectomy) # PAD # Lung cancer (SCLC) Continue PREPRESS STRIPPER bASA twice weekly Continue PREPRESS STRIPPER atorvastatin 40 mg daily Continue PREPRESS STRIPPER fish oil Continue PREPRESS STRIPPER metoprolol succinate 25 mg daily Continue PREPRESS STRIPPER MVN, folic acid, thiamine, vitamin D supplements # BPH PREPRESS STRIPPER tamsulosin 0.4 mg daily # GERD Continue PREPRESS STRIPPER omeprazole for now Plan discussed with Bonding Equipment Operator, Bismark Bentley M.D., who was present during crump portions of the evaluation today on GI Team B. The business system consultant agrees with the above plan and/or procedures unless otherwise indicated in their note. Annel Dorado M.D., M.P.H. 12/22/2024 TROTYPE MOLDER * Mago Bowling, Pharm.D., R.Ph., [facility] - 12/21/2024 9:01 PM CST Images from the original note were not included. Admission Medication History Note Adherence issues: Unable to assess Medication list source: Patient via telephone + pharmacy dispense records in [facility] Medication related information: - Patient stated that he self-manages all medications and read off a list of his meds from his cellphone-- most all RX med names and doses matched current med list and recent fill history. - He stated he was at OSH ([facility]) for ~4 days before transferring here so unsure whenLDAs were (no OSH records showing up in [facility]). He noted that OSH started 3 new medications for him-- the only one he picked up and remembered was budesonide ER capsule 9 mg daily; the others were bowel meds he doesn't remember the names of-- no recent fill history so could be OTC meds. - When asked about Dulera inhaler, patient reported having an inhaler at home that he doesn't remember the name of but said he never used it. - Patient stated only taking aspirin 81 mg on Tuesdays and . - Removed diclofenac and lisinopril as these meds were not on patient's personal list and not filled recently Prior to Admission Medications Med List Status: Pharmacy Complete Set By: Mago Bowling, Pharm.D., R.Ph., BCPS at 12/21/2024 8:53 PM Taking? Last Dose Informant Start Date End Date LT acetaminophen (TylenoL 8 Hr) 650 mg ER tablet -- -- -- -- Take 1,300 mg by mouth daily. acetaminophen (TylenoL) 500 mg tablet -- -- -- -- Take 1,000 mg by mouth daily. aspirin 81 mg chewable tablet -- Self 08/02/16 -- Chew 1 tablet 2 (two) times a week. 2 days a week Notes: Tuesdays and atorvastatin (LIPITOR) 40 mg tablet -- -- 07/25/12 -- Take 40 mg by mouth daily. bismuth subsalicylate (Pepto-BismoL) 262 mg tablet -- -- -- -- Take 1 tablet by mouth daily. budesonide (Entocort EC) 3 mg 24 hr capsule -- -- -- -- Take 9 mg by mouth daily. cholecalciferol (VITAMIN D3) 10 mcg (400 Unit) tablet -- -- 08/16/21 -- Take 10 mcg by mouth daily. Dulera 50-5 mcg/actuation HFA aerosol inhaler Not Taking -- 06/25/23 -- as needed. Patient not taking: Reported on 12/21/2024 folic acid 1 mg tablet -- -- 05/17/15 -- Take 1 tablet by mouth daily. metoprolol succinate (TOPROL-XL) 25 mg 24 hr tablet -- -- 08/07/16 -- Take 25 mg by mouth daily. multivitamin tablet -- -- 08/02/16 -- Take 1 tablet by mouth daily. nitroglycerin (NITROSTAT) 0.4 mg SL tablet -- -- 08/02/16 -- Place 1 tablet under the tongue as needed. omega 5-wse-hqm-fish oil (fish oil) 1,000 mg (120 mg-180 mg) capsule -- -- 08/02/16 -- Take 1 capsule by mouth daily. omeprazole (PriLOSEC) [address] capsule -- -- -- -- Take 20 mg by mouth daily. polycarbophil (FiberCon) 625 mg tablet -- -- -- -- Take 625 mg by mouth daily. Fiber gummy tamsulosin (Flomax) 0.4 mg 24 hr capsule -- -- 02/18/24 -- Take 0.4 mg by mouth daily. thiamine (VITAMIN B1) 100 mg tablet -- -- 08/07/16 -- Take 1 tablet by mouth daily. TROTYPE MOLDER TROTYPE MOLDER documented in this encounter H&P Notes * Bismark Bentley M.D. - 12/22/2024 11:01 AM CST CHIEF COMPLAINT/REASON FOR VISIT Diarrhea. HISTORY OF PRESENT ILLNESS I personally interviewed and evaluated the patient. I agree with the history, exam, assessment, andplan as outlined by Dr. Justyn Torrez in his note of December 21, 2024. I have discussed the evaluation and management plans with the patient, son, and the rest of the GI-B Team, including Dr. Ambika Nguyễn. In brief, this is a 69-year-old man with coronary artery disease and small cell lung cancer, on immunotherapy, and history of recurrent Clostridioides difficile colitis who is transferred for further evaluation of profuse watery diarrhea of 2 weeks' duration. He has been having profuse watery diarrhea over the last 2 weeks. He presented for medical attention and was found to be in acute renal failure. He was hospitalized, given intravenous fluids, and improvement in renal status. He continues to have profuse watery diarrhea. Testing for enteric pathogens has been negative. He has been on chronic budesonide therapy with ongoing diarrhea. OBJECTIVE PHYSICAL EXAMINATION Vital Signs: Temperature 36 degrees Celsius. Heart rate 90 beats per minute. Systolic blood pressure 100 mmHg, diastolic 75 mmHg. Respiratory rate 16 breaths per minute. Saturating 97% on room air. General: Sitting up in a chair. Looks comfortable. Appears well. HEENT: Conjunctivae are anicteric. Abdomen: Soft, nontender. DIAGNOSTICS Laboratory studies show a normal white count of 6000. He has a chronic anemia. Serum bicarbonate isdepressed and his serum albumin is 3 g/dL. BUN and creatinine are 9 and 1.1 mg/dL. GI pathogen panel is negative. ASSESSMENT / PLAN #1 Small cell lung cancer, on immunotherapy with immune checkpoint inhibitor #2 Acute diarrhea #3 History of recurrent Clostridioides difficile infection #4 Coronary artery disease He presents with subacute watery diarrhea. Enteric pathogen testing has been negative. His diarrheais occurring in the context of immunotherapy for small cell lung cancer. It is suspected he may have immune checkpoint inhibitor enterocolitis. We will plan to obtain upper endoscopy with gastric and small bowel biopsies, as well as colonoscopy with colon and TI biopsies. TROTYPE MOLDER TROTYPE MOLDER * Justyn Torrez M.D. - 12/21/2024 8:00 PM CST RST Gastroenterology B ADMISSION NOTE SUBJECTIVE CHIEF COMPLAINT Profuse watery diarrhea for 2 weeks HISTORY OF PRESENT ILLNESS Mr. Cr Castrejon is a 69 y.o. 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 Diff testing. Briefly, patient had diarrhea 05/21/2024 and was found with C. Diff infection, treated with a course of oral vancomycin. His symptoms subsequently required shortly after on 05/05/2024 and was given fidaxomicin for 10 days with resolution of symptoms. Unfortunately, he had recurrence of sympotms 06/11/2024 and C. Diff positive again. He was then given 3 weeks of fidaxomicin and a course of steroids. He continues on budesonide 9 mg daily. He consulted with Dr. Martinez at [facility] as an outpatient on 07/07/2024. He subsequently underwent colonoscopy on 07/10/2024 with normal colon and ileum (of whatwas examined), and they did a fecal microbiologic transplant. He subsequently did well after this until current presentation. Starting 2 weeks ago, has had profuse brown, watery, malodorous stool. Up to 20 times per day. Overpast 24 hrs, has had 14 BMs. Has resulted in fecal incontinence a couple occasions. Wakes in middleof night. No, pus, or blood. He was vomiting last week but hasn't for about a week. Still nauseous.Has been able to tolerate a bit more PO (food and liquid) better for the past few days. No abdominal pain or cramping. Also has chills and has lost 11 lbs. He has no recent travel, sick contacts, changes to his medications, or recent antibiotic exposure. He links the symptoms to having take-out pizza the night when symptoms began. No other changes in his dietary patterns (i.e. dairy, sweeteners, spicy foods). The diarrhea occurs throughout the days and not noticeable linked with PO intake. Has not improved with NPO for multiple hours in the hospital. Takes OTC omeprazole for acid reflux, for at least a decade. Review of systems is also positive for dizziness and dry mouth. He had chills at home but no measured fever. No chest pain, shortness of breath, cough, headache, changes in vision or hearing, urinarycomplaints. Has chronic leg swelling and uses leg wraps. No history of IBD. Appendectomy years ago.No known thyroid disease or diabetes. Drinks 2 shots of Rhonda per night. Used to smoke cigarettes,quit 8 years ago. No other drug use. Otherwie d He initially presented to [facility], was there for a few days before being transferred to [facility]. We don't have records, but given report of an ZAINAB and negative C. Diff testing there. They were giving IV fluids and loperamide (unknown dose and frequency) which did not seem to be helping. Other history HTN Used to be on anti-hypertensives, now has lower BP since cancer treatment HLD On atorvastatin 40 mg daily CAD c/b PA in 1982 and 2012 (4 stents placed) On aspirin twice weekly (decreased from daily due to skin bruising) No anginal symptoms recently Carotid artery stenosis Report of carotid endarterectomy years ago PAD Was going to have vascular intervention, which was deferred because of diagnosis of cancer Small cell lung cancer Do not have records. He does not know what medications has been treated with Diagnosed in 2022. Treated with chemo for 5 of 6 cycles, then had 10 days of radiation, and has been on immunotherapy infusions with atezolizumab BPH On tamsulosin Evaluation thus far VSS, HR 100, afebrile Bicarbonate 17, Cr 1.14, BUN 9, AG 11. Otherwise unremarkable LFTs unrevealing Lactate 1.0 Hgb 10.5, WBC 6.0 KUB - nonobstructive bowel gas pattern On review of paper records from [place] Report of a-fib due to irregularity on ECG. No history of fibrillation in the chart. On my review of the copy of ECG, the rhythm is sinus tach with PACs and not atrial fibrillation (concordant with the read on ECG). Only given one ECG, unsure if there were others. Outside labs showed BUN 90 and Cr 6.1, bicarb 10, K 2.9, AG 29, CRP 4.1 mg/dL, Procalcitonin 2.63, normal TSH. This was on 12/15. These abnormalities have essentially all normalized. CXR reportedly without acute process, abdominal x-ray reportedly without bowel obstruction and normal bowel gas pattern Stool pathogen panel reportedly negative Patient Active Problem List Diagnosis Malignant Neoplasm Of Lung Small Cell Right (HCC) Diarrhea Past Medical History: Diagnosis Date Arthritis Atherosclerosis Of [place] Arteries Of Extremities With Intermittent Claudication Bilateral Legs (HCC) Coronary Artery Disease NOS Gastroesophageal Reflux Disease Hyperlipidemia Hypertension Essential Primary Malignant Neoplasm Of Lung Small Cell Right (HCC) Myocardial Infarction Old Peripheral Vascular Disease (HCC) Scoliosis Stenosis Carotid Artery Left Current Outpatient Medications on File Prior to Encounter: acetaminophen (TylenoL) 500 mg tablet, Take 1,000 mg by mouth daily. aspirin 81 mg chewable tablet, Chew 1 tablet 2 (two) times a week. 2 days a week atorvastatin (LIPITOR) 40 mg tablet, Take 40 mg by mouth daily. bismuth subsalicylate (Pepto-BismoL) 262 mg tablet, Take 1 tablet by mouth daily. budesonide (Entocort EC) 3 mg 24 hr capsule, Take 9 mg by mouth daily. cholecalciferol (VITAMIN D3) 10 mcg (400 Unit) tablet, Take 10 mcg by mouth daily. folic acid 1 mg tablet, Take 1 tablet by mouth daily. metoprolol succinate (TOPROL-XL) 25 mg 24 hr tablet, Take 25 mg by mouth daily. multivitamin tablet, Take 1 tablet by mouth daily. nitroglycerin (NITROSTAT) 0.4 mg SL tablet, Place 1 tablet under the tongue as needed. omega 0-tum-rhz-fish oil (fish oil) 1,000 mg (120 mg-180 mg) capsule, Take 1 capsule by mouth daily. omeprazole (PriLOSEC) [address] capsule, Take 20 mg by mouth daily. polycarbophil (FiberCon) 625 mg tablet, Take 625 mg by mouth daily. Fiber gummy tamsulosin (Flomax) 0.4 mg 24 hr capsule, Take 0.4 mg by mouth daily. thiamine (VITAMIN B1) 100 mg tablet, Take 1 tablet by mouth daily. Surgical History[1] Social History Tobacco Use Smoking status: Former Current packs/day: 0.00 Types: Cigarettes Quit date: 2016 Years since quittin.1 Smokeless tobacco: Never Substance Use Topics Alcohol use: Yes Alcohol/week: 21.0 standard drinks of alcohol Types: 14 Glasses of wine, 7 Shots of liquor per week Family History[2] I have reviewed the patient's allergy and medication lists. I have reviewed the relevant past medical, surgical, and psychosocial history and made updates in the chart as appropriate. OBJECTIVE VITAL SIGNS Temperature: [36.5 ??C] 36.5 ??C Resp Rate: [14-18] 14 Blood Pressure: (96-130)/(70-84) 96/70 SpO2: [96 %-100 %] 96 % Height: [162.6 cm] 162.6 cm Weight: [63 kg] 63 kg BSA (Calculated - sq m): [1.69 sq meters] 1.69 sq meters BMI (Calculated): [23.8 kg/m??] 23.8 kg/m?? Pulse Rate: [99-100] 99 I/O None PHYSICAL EXAM General: Alert, no acute distress Lungs: Clear to auscultation Heart: Regular rate and rhythm. No murmurs. Extremities: No peripheral edema Abdomen: Soft, nontender, nondistended, bowel sounds normoactive Mental: Alert and engaged, participates in conversation and answers questions appropriately CMP Recent Labs 12/21/242099 NA 137 KSERUM 5.0 CL 109 H BICARB 17 L BUN 9 CREATININE 1.14 EGFR 69 GLUCOSE 103 CALCIUM 7.3 L No results for input(s): MG, LABPHOS in the last 720 hours. Recent Labs 12/21/242099 ALBUMIN 3.0 L BILITOT 0.2 ALKPHOS 45 ALT 30 AST 23 No results for input(s): GLUCOSEPOC in the last 720 hours. CBC Recent Labs 12/21/242058 WBC 6.0 RBC 3.17 L HGB 10.5 L MCV 97.5 PLT 198 Inflammatory No results for input(s): CRP, SEDRATE in the last 720 hours. Gas No results for input(s): PHART, [id number], PO2ART, PHVEN, [id number] in the last 720 hours. Cards Recent Labs 12/21/242058 LACTATE 1.0 Coag No results for input(s): APTT, PT, INR, FIBRINOGEN in the last 720 hours. Other No results for input(s): LIPASE, AMMONIA in the last 720 hours. Endo Recent Labs 12/21/242052 TSH 1.4 Lipid No results for input(s): LDLCALC, HDL, CHOL, TRIG, LIPA in the last 37561 hours. Iron Recent Labs 08/03/16 1634 08/03/16 0054 IRON 164 H -- TIBC 159 L -- LABIRON >90 H -- FERRITIN -- 335 DIAGNOSTICS I have reviewed the diagnostics since admission. ASSESSMENT / PLAN Mr. Castrejon is a 69 y.o. 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 Abrupt onset profuse diarrhea with elevated white count and CRP (outside) suggest infectious or inflammatory cause for diarrhea. This must have been quite significant prior to his initial presentation given ZAINAB with Cr up to 6 and severe metabolic acidosis. Fortunately this seems to have improved. The C. Diff testing was negative outside, will repeat given his history of recurrent C. Diff, and itwill also look for other infectious etiologies. Other causes could be ICI-induced enterocolitis from atezolizumab, SIBO, IBD among others. If we can't find an infectious agent, I wonder if (1) CT enterography would be helpful to see if there is any pattern to point to one of these alternate etiologies and (2) colonoscopy with biopsies particularly to see if something like ICI colitis is at play. In the meantime, will repeat stool pathogen panel, give fluids, see how he does with PO intake and antiemetics. # Acute diarrhea # Hx of recurrent C. Diff enterocolitis S/p vanco 04/21/2024 => recurrent => fidaxomicin 10 days w/ improvement => recurrence 06/11/2024 => given prednisone taper (now on budesonide) and 3 weeks of fidaxomicin => persistent symptoms June 2024 => fecal transplant 07/10/2024 Despite above, recurrence of diarrhea, up to every 2 hrs. Reportedly, outside C. Diff testing negative Etiologies considered on the differential Recurrent C. Diff or other bacterial or viral enterocolitis ICI colitis (alemtuzumab) SIBO (would be odd ot have such acute abrupt onset of diarrhea) Medications (on PPI) IBD: non bloody BMs, last colonoscopy with biopsies unremarkable, but doesn't rule out new colonic IBD or IBD involving the small bowel Etiologies low on differential or ruled out IBS-D, odd to have such acute and profuse water diarrhea, with elevated inflammatory markers Lactose intolerance, celiac disease, would be odd to present so abruptly without changes in diet Thyroid dysfunction (TSH normal) or diabetes (fasting sugars have been normal) Plan Trial general diet LR @ 100 mL/hr Repeat stool pathogen panel. Pending result, could trial imodium If not improving, consider repeat colonoscopy for biopsy (i.e. for ICI enterocolitis) Continue PREPRESS STRIPPER budesonide 9 mg daily for now Tylenol for pain Zofran for nausea Strict I/O, stool output monitoring INACTIVE PROBLEMS # ZAINAB (resolved) # Metabolic acidosis (resolved) # Hypokalemia (resolved) ZAINAB with BUN 90, Cr 6 on outside presentation. Has now normalized with fluids. Likely pre-renal. Hypokalemia and metabolic acidosis also explained by the profuse diarrhea Continue to monitor renal panel # Sinus tachycardia w/ frequent PACs Called a-fib in notes from prior admit. Their ECG shows sinus tach with frequent PACs. No history of fib ECG in-house shows normal sinus Continue to monitor # HTN # HLD # CAD (c/b PA, s/p PCI) # Carotic artery stenosis (s/p endarterectomy) # PAD # Lung cancer (SCLC) Continue PREPRESS STRIPPER bASA twice weekly Continue PREPRESS STRIPPER atorvastatin 40 mg daily Continue PREPRESS STRIPPER fish oil Continue PREPRESS STRIPPER metoprolol succinate 25 mg daily Continue PREPRESS STRIPPER MVN, folic acid, thiamine, vitamin D supplements # BPH PREPRESS STRIPPER tamsulosin 0.4 mg daily # GERD Continue PREPRESS STRIPPER omeprazole for now Diet: Regular VTE prophylaxis: enoxaparin Disposition: Home with expected discharge date Surrogate Decision Maker: Ayad Godfrey Lines, Drains, and Airways Central venous catheter Duration Implanted Port Single Lumen Right Chest -- Peripheral IV Duration Peripheral IV 09/06/23 20 G Anterior;Left;Lower;Proximal Forearm 472d 12h Justyn Torrez M.D. 12/22/24 [1] Past Surgical History: Procedure Laterality Date APPENDECTOMY N/A 02/25/1992 Appendectomy CAROTID ENDARTERECTOMY Left CORONARY ANGIOPLASTY WITH STENT PLACEMENT VASECTOMY [2] No family history on file. TROTYPE MOLDER TROTYPE MOLDER TROTYPE MOLDER TROTYPE MOLDER documented in this encounter Consult Notes * Ann Marie Jo M.D., M.P.H. - 12/25/2024 3:30 PM CSTAssociated Order(s): IP CONSULT TO ONCOLOGY ONCOLOGY CONSULT NOTE Primary Service: RST Gastroenterology B Local Oncologist: [facility] Dr. Maci Nascimento [facility] Oncologist(s): None Reason for consult: ICI colitis Current therapy: Atezolizumab SUBJECTIVE HISTORY OF PRESENT ILLNESS Mr. Cr Castrejon is a 69 y.o. 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 His oncology history is noted below. For the past two weeks, he has had profuse stool burden and was transferred to [facility] from [place]. He has had about 20 stools a day. He reports that the stool amount varies from minimal output (<1 tbsp) to more. Reportedly he had an ZAINAB at the OSH with Cr up to 6.1. GI pathogen stool testing on 12/22 was negative. Colonoscopy with biopsy was done on 12/24/2024 with biopsy showing moderately active chronic duodenitis, gastritis, ileitis, and colitis possibly compatible with delayed ICI-related gastroenterocolitis. Of note, he also had a bout of extensive diarrhea in with C. 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 Oncology History Malignant Neoplasm Of Lung Small [...] Carboplatinum/etoposide/atezolizumab under the care of Dr. Nascimento, [facility] 08/21/2023 Critical Imaging FDG PET-CT IMPRESSION: [...] MRI negative for metastatic disease 09/16/2023 - 09/27/2023 Radiation Therapy Radiation Therapy Treatment Details (09/16/2023 - 09/27/2023) Site: Right Lung Fractions: 10 Technique: IMRT Dose: 3000 cGy Goal: Palliative Planned Treatment Start Date: 09/16/2023 09/17/2023 - Chemotherapy Scheduled to begin maintenance atezolizumab under the care of Dr. Nascimento I have reviewed his past medical history/past surgical history/allergies/medications and updated asnecessary in the chart. OBJECTIVE Temperature: [36.3 ??C-36.8 ??C] 36.4 ??C Resp Rate: [14-16] 16 Blood Pressure: (93-113)/(46-67) 96/64 SpO2: [96 %-99 %] 98 % Pulse Rate: [63-95] 90 Physical Exam General: No acute distress HEENT: Normocephalic, extra-ocular motion and vision are grossly intact, hearing grossly intact. Chest/Pulmonary: No coughing or wheezing, on room air, normal work of breathing. Neurological: Alert, oriented to self and situation. Normal gait. DIAGNOSTICS: I have personally reviewed diagnostic evaluations from this hospitalization Recent Labs 12/25/24 0642 12/24/24 0841 12/23/24 0654 12/22/24 1045 12/21/242058 HGB 9.7 L 9.5 L 10.1 L 10.3 L 10.5 L WBC 6.6 6.1 5.6 7.3 6.0 PLT 188 176 220 213 198 Recent Labs 12/25/24 0642 12/24/24 0841 12/23/24 0654 12/22/24 1045 12/21/24 2100 NA 140 139 139 139 137 KSERUM 3.9 3.4 L 4.2 4.1 5.0 CL 115 H 114 H 115 H 112 H 109 H BICARB 15 L 18 L 14 L 19 L 17 L BUN 6 L 6 L 8 9 9 CREATININE 1.27 1.14 1.18 1.15 1.14 Recent Labs 12/21/24 2100 ALT 30 AST 23 ASSESSMENT / PLAN Cr Castrejon is a 69 y.o. male with an oncology history as noted. He presents with profusediarrhea x 3 weeks in the setting of SCLC s/p carboplatin, etoposide, atezolimumab and now on maintenance atezolizumab. He does have a history in 2023 of collagenous colitis and C. Diff requiring steroids and fecal transplant in 06/2024. Currently, given his profuse diarrhea with negative infectiouswork-up and colonoscopic biopsies showing suspicion for ICI-related enterocolitis, it is most likely that this current episode of diarrhea is a delayed presentation of ICI toxicity. To that end, we would recommend starting immunosuppression as below with steroids. In preparation for a possible need for biologics, he should have hepatitis profile and TB tests. If his stool urgency/frequency or volume worsens over the weekend, he should be treated with infliximab in addition to the steroids. He should also discontinue imodium use due to risk of megacolon. Oncology recommendations to the primary team: Start 250mg IV solumedrol daily Obtain hepatitis profile and quantiferon-gold (TB) testing If stool frequency or volume worsens, start infliximab along with steroids (assuming hepatitis/TB negative) STOP imodium Oncology plan for following: Oncology Consults will continue to see this patient daily. Outpatient oncology follow-up indicated (Onc Consult staff will message [facility] Medicine ,12, Onc [facility] to arrange for this oncology-specific followup): A. Indication: TBD B. Clinic/Physician: TBD C. Testing: TBD Communication: Treatment plan reviewed with Mr. Castrejon, who expressed understanding. All questionsanswered to patient's satisfaction. Staffing: This case was staffed with Dr. Layne who is in agreement with this plan. Paging: Please page Oncology Consults Oncall with any questions at [phone] (service pager). Lc Thomas-Robinson Tyler Bonding Equipment Operator on Consult service Ann Marie Jo M.D., M.P.H. Cosigned by Samra Layne M.D. at 12/26/2024 5:46 PM ELECTROTYPE MOLDER TROTYPE MOLDER TROTYPE MOLDER Associated attestation - Samra Layne M.D. - 12/26/2024 5:46 PM ELECTROTYPE MOLDER I saw and evaluated the patient with Drs. Jo and Pablo, and agree with H&P. Agree with starting high dose steroids for ICI induced colitis, and will follow. Thank you. * Ann Marie Jo M.D., M.P.H. - 12/22/2024 11:04 AM CSTAssociated Order(s): IP CONSULT TO ONCOLOGY ONCOLOGY CONSULT BRIEF NOTE Consult received regarding possibility of ICI toxicity colitis after 1.5 years of atezolizumab treatment and discussed with requesting service. We discussed that ICI toxicity more commonly occurs closer to the beginning of treatment but the range does extend to 2 years. Colonoscopy is currently planned for 12/22/2024 which would more definitively provide answers regarding ICI-related colitis. Please contact us if biopsies return or if diarrhea worsens, suspicious for ICI colitis. We will behappy to see and fully consult on this patient at that time. Please page Oncology Consults Oncall with any questions at [phone] (service pager). Lc Thomas-TommyPRobinson Bonding Equipment Operator on Consult service Ann Marie Jo M.D., M.P.H. Cosigned by Samra Layne M.D. at 12/23/2024 1:24 PM ELECTROTYPE MOLDER TROTYPE MOLDER TROTYPE MOLDER TROTYPE MOLDER documented in this encounter Nursing Notes * Diaz Norris R.N. - 12/29/2024 4:22 PM CST 12/29/2024, 5:30 PM ELECTROTYPE MOLDER Cr Castrejon discharged to home at 5:30 via private vehicle. Cr Castrejon at discharge left the unit via wheelchair. Patient's belongings on the unit were returned and follow-up appointments were reviewed with the patient. Prescriptions were reviewed and sent with patient. Total time spent in discharge services today: 30 minutes. Problem: PAIN - ADULT Goal: PT VERBALIZES/DEMONSTRATES ADEQUATE COMFORT LEVEL OR BASELINE Outcome: Adequate for Discharge Problem: KNOWLEDGE DEFICIT Goal: Patient/family/caregiver demonstrates understanding of disease process, treatment plan, medications, and discharge instructions Outcome: Adequate for Discharge Problem: INFECTION - ADULT Goal: Absence of infection during hospitalization Outcome: Adequate for Discharge Problem: SKIN/TISSUE INTEGRITY Goal: Skin/Tissue integrity maintained or improved Outcome: Adequate for Discharge Goal: Oral and Nasal mucous membranes remain intact Outcome: Adequate for Discharge Problem: SAFETY ADULT Goal: Maintain a safe environment Outcome: Adequate for Discharge Problem: DISCHARGE PLANNING Goal: Patient discharge needs identified Outcome: Adequate for Discharge Problem: SAFETY ADULT - RISK FOR FALL AND OR FALL INJURY Goal: Patient remains free from fall/fall injury Outcome: Adequate for Discharge Electronically signed by: Lana Norris R.N. 12/29/24 5:32 PM ELECTROTYPE MOLDER TROTYPE MOLDER * Kurt Shah Jr., M.D., M.B.A. - 12/29/2024 2:55 PM CST MEDICAL ONCOLOGY CONSULT CARE COORDINATION/SIGN-OFF NOTE PRIMARY SERVICE: [facility] Gastroenterology B LOCAL ONCOLOGIST: No care steam hammer operator to display [facility] Oncologist(s): No care steam hammer operator to display REASON FOR CONSULT: ICI colitis Cr Castrejon is a 69 y.o. male with an oncology history as noted. He was admitted for diarrhea and found to have ICI colitis on biopsy. He was initiated on steroids and will be discharged onprednisone 120 mg QD. He was started on appropriate prophylaxis and PPI. He has a virtual appointment with the ICI toxicity team on 12/31.(Oncology Consult staff to message [facility] Medicine , Oncology [facility] to arrange for Oncology specific followup). He can be discharged if there is no rebound worsening of his colitis upon transitioning to po steroids. We will sign off at this time. Please contact the Oncology Consult service if any further questionsor concerns arise at [phone] (service pager). Saturday through Saturday 7:00 a.m. to 7:00 p.m. Saturday to Saturday Bonding Equipment Operator on Consult service. Was this consult thought to be associated with ICI toxicity? Yes. Was there an intervention related to an ICI toxicity recommended? Yes. Kurt Shah Jr., M.D., M.B.A. TROTYPE MOLDER * Lissy Saha R.N., [facility] - 12/29/2024 6:34 AM CST Shift Goals: Identify possible barriers to meeting goals/advancing plan of care: none End of Shift Summary: Rested well throughout shift. Only one BM since 11:00PM. Plan for possible DChome next shift. No concerns at this time. Blood pressure 96/81, pulse 82, temperature 36.5 ??C, temperature source Oral, resp. rate 17, height 162.6 cm, weight 60 kg, SpO2 97%. Problem: PAIN - ADULT Goal: PT VERBALIZES/DEMONSTRATES ADEQUATE COMFORT LEVEL OR BASELINE Outcome: Progressing Problem: KNOWLEDGE DEFICIT Goal: Patient/family/caregiver demonstrates understanding of disease process, treatment plan, medications, and discharge instructions Outcome: Progressing Problem: INFECTION - ADULT Goal: Absence of infection during hospitalization Outcome: Progressing Problem: SKIN/TISSUE INTEGRITY Goal: Skin/Tissue integrity maintained or improved Outcome: Progressing Goal: Oral and Nasal mucous membranes remain intact Outcome: Progressing Problem: SAFETY ADULT Goal: Maintain a safe environment Outcome: Progressing Problem: DISCHARGE PLANNING Goal: Patient discharge needs identified Outcome: Progressing Problem: SAFETY ADULT - RISK FOR FALL AND OR FALL INJURY Goal: Patient remains free from fall/fall injury Outcome: Progressing TROTYPE MOLDER * Carmenza Rodrigues R.N. - 12/28/2024 3:26 AM CST Problem: INFECTION - ADULT Goal: Absence of infection during hospitalization Outcome: Progressing Problem: SKIN/TISSUE INTEGRITY Goal: Skin/Tissue integrity maintained or improved Outcome: Progressing Goal: Oral and Nasal mucous membranes remain intact Outcome: Progressing Shift Goals: Clinical Goals for the Shift: Promote sleep Identify possible barriers to meeting goals/advancing plan of care: none End of Shift Summary: Sleeping up in chair. Ambulating to bathroom. Notable swelling in legs remains. Fluids completed. TROTYPE MOLDER * Carmenza Rodrigues R.N. - 12/27/2024 4:39 AM CST Problem: SKIN/TISSUE INTEGRITY Goal: Skin/Tissue integrity maintained or improved Outcome: Progressing Goal: Oral and Nasal mucous membranes remain intact Outcome: Progressing Problem: SAFETY ADULT Goal: Maintain a safe environment Outcome: Progressing Shift Goals: Clinical Goals for the Shift: Promote sleep Identify possible barriers to meeting goals/advancing plan of care: none End of Shift Summary: Patient reports sleeping well. Reports that bowel movements have decreased infrequency. TROTYPE MOLDER * Jayda Crystal R.N. - 12/26/2024 7:48 PM CST Shift Goals: Clinical Goals for the Shift: patient will DC today to [facility] Identify possible barriers to meeting goals/advancing plan of care: disease process End of Shift Summary: Patient did not DC to [facility] on Saturday. Patient was started on steroids. Patient had reduced urine output and increased edema. SX was notified.Patient will DC to [facility] on Saturday. Problem: PAIN - ADULT Goal: PT VERBALIZES/DEMONSTRATES ADEQUATE COMFORT LEVEL OR BASELINE Outcome: Progressing Jayda Hills R.N. TROTYPE MOLDER * Carmenza Rodirgues R.N. - 12/26/2024 3:07 AM CST Problem: PAIN - ADULT Goal: PT VERBALIZES/DEMONSTRATES ADEQUATE COMFORT LEVEL OR BASELINE Outcome: Progressing Problem: SKIN/TISSUE INTEGRITY Goal: Skin/Tissue integrity maintained or improved Outcome: Progressing Shift Goals: Clinical Goals for the Shift: Remain free of falls, enhance sleep Identify possible barriers to meeting goals/advancing plan of care: none End of Shift Summary: Patient sleeping in chair most of this shift. Elects to sleep in chair r/t needing to get up to the bathroom. Oriented and call light appropriate. TROTYPE MOLDER * Gloria Seals R.N. - 12/23/2024 9:09 AM CST Problem: PAIN - ADULT Goal: PT VERBALIZES/DEMONSTRATES ADEQUATE COMFORT LEVEL OR BASELINE Outcome: Progressing Problem: SAFETY ADULT Goal: Maintain a safe environment Outcome: Progressing Shift Goals: Identify possible barriers to meeting goals/advancing plan of care: diarrhea End of Shift Summary: Pt is A/O x 4. Pt is independent in the room. Continues to have frequent watery BMs. Denies c/o pain. Fluids infusing. Safety rounds completed; call light within reach. TROTYPE MOLDER * Luis Shane R.N. - 12/22/2024 5:19 AM CST Shift Goals: Identify possible barriers to meeting goals/advancing plan of care: End of Shift Summary: pt slept adequately during shift. Stool sample was sent. Pt's home medicationwas locked in locker and pt was educated not to take home meds in the hospital. Problem: SAFETY ADULT Goal: Maintain a safe environment Outcome: Progressing Pt remained safe during shift. Bed in low position and call light within reach. Problem: SAFETY ADULT - RISK FOR FALL AND OR FALL INJURY Goal: Patient remains free from fall/fall injury Outcome: Progressing TROTYPE MOLDER documented in this encounter Miscellaneous Notes * Hospital Course - Yudi Motley M.D. - 12/23/2024 10:57 AM CST Mr. Cr Castrejon is a 69 y.o. 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 Difficile testing. Briefly, patient had diarrhea 05/21/2024 and was treated for C. Difficile infection with a course of oral vancomycin. His symptoms subsequently reoccurred shortly after on 05/05/2024 and was given fidaxomicin for 10 days with resolution of symptoms. Unfortunately, he had recurrence of sympotms again 06/11/2024 and had C. Difficile positive again. He was then given 3 weeks of fidaxomicin and a course of steroids, and continued on budesonide 9 mg daily. He was seen by Dr. Martinez at [facility] as an outpatient on 07/07/2024. He subsequently underwent colonoscopy on 07/10/2024 with normal colon and ileum (of what was examined), and they did a fecal microbiologic transplant. He subsequently did well after this until current presentation. Two weeks prior to admission, has had profuse brown, watery, malodorous stool (up to 20 times per day). GI pathogen panel was unrevealing. Concern for ICI enteritis vs colitis was high and the patient underwent endoscopy and colonoscopy with biopsies on 12/24. EGD demonstrated esophageal plaques suspicious for candidiasis. Mucosal changes in the duodenum showed mild atrophy and nodularity. Esophageal brushings grew andrea albicans and he was initiated on oral fluconazole. Colonoscopy demonstrated one 8 mm polyp in the sigmoid colon, removed with a cold snare and patchy granularity/micronodularity in the entire examined colon. Biopsy was obtained. 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 Oncology was consulted regarding this finding. He was initiated on IV methylprednisolone 250 mg x 3 days with taper. He improved significantly with steroids. He was started on a PPI and given PJP prophylaxis with Bactrim due to his steroids. He received intermittent doses of diuretics given edema from steroids. His ZAINAB resolved with improvement of his diarrhea. Follow up with Oncology was made by the oncology consult service. TROTYPE MOLDER TROTYPE MOLDER TROTYPE MOLDER TROTYPE MOLDER TROTYPE MOLDER TROTYPE MOLDER TROTYPE MOLDER TROTYPE MOLDER TROTYPE MOLDER TROTYPE MOLDER TROTYPE MOLDER TROTYPE MOLDER TROTYPE MOLDER documented in this encounter Plan of Treatment Pending Results Name Type Priority Associated Diagnoses Date /Time ECG 12 Lead ECG Routine 12/21/2024 11 :48 PM ELECTROTYPE MOLDER Fungal Culture, Routine Microbiology Routine 12/24/2024 2:19 PM ELECTROTYPE MOLDER documented as of this encounter Procedures Procedure Name Priority Date/Time Associated Diagnosis Comments RENAL FUNCTION PANEL, S Routine 12/29/2024 7:25 AM ELECTROTYPE MOLDER CBC WITH DIFFERENTIAL, B Routine 12/29/2024 7:25 AM ELECTROTYPE MOLDER MAGNESIUM, S Routine 12/29/2024 7:25 AM ELECTROTYPE MOLDER BASIC METABOLIC PANEL, S/P Timed 12/28/2024 4:08 PM ELECTROTYPE MOLDER RENAL FUNCTION PANEL, S Routine 12/28/2024 5:52 AM ELECTROTYPE MOLDER QUANTIFERON-TB GOLD PLUS, B Routine 12/28/2024 5:52 AM ELECTROTYPE MOLDER CBC WITH DIFFERENTIAL, B Routine 12/28/2024 5:52 AM ELECTROTYPE MOLDER MAGNESIUM, S Routine 12/28/2024 5:52 AM ELECTROTYPE MOLDER RENAL FUNCTION PANEL, S Routine 12/27/2024 8:11 AM ELECTROTYPE MOLDER CBC WITH DIFFERENTIAL, B Routine 12/27/2024 8:11 AM ELECTROTYPE MOLDER MAGNESIUM, S Routine 12/27/2024 8:11 AM ELECTROTYPE MOLDER ECG Routine 12/26/2024 12:55 PM ELECTROTYPE MOLDER RENAL FUNCTION PANEL, S Routine 12/26/2024 9:31 AM ELECTROTYPE MOLDER HBC TOTAL AB, SERUM Routine 12/26/2024 9:31 AM ELECTROTYPE MOLDER HBS ANTIBODY, SERUM Routine 12/26/2024 9:31 AM ELECTROTYPE MOLDER HEPATITIS B SURFACE ANTIGEN Routine 12/26/2024 9:31 AM ELECTROTYPE MOLDER CBC WITH DIFFERENTIAL, B Routine 12/26/2024 9:31 AM ELECTROTYPE MOLDER MAGNESIUM, S Routine 12/26/2024 9:31 AM ELECTROTYPE MOLDER RENAL FUNCTION PANEL, S Routine 12/25/2024 6:42 AM ELECTROTYPE MOLDER CBC WITH DIFFERENTIAL, B Routine 12/25/2024 6:42 AM ELECTROTYPE MOLDER MAGNESIUM, S Routine 12/25/2024 6:42 AM ELECTROTYPE MOLDER FUNGAL SMEAR Routine 12/24/2024 2:19 PM ELECTROTYPE MOLDER FUNGAL CULTURE, ROUTINE Routine 12/24/2024 2:19 PM ELECTROTYPE MOLDER SURGICAL PATHOLOGY Routine 12/24/2024 2: 08 PM ELECTROTYPE MOLDER COLONOSCOPY Routine 12/24/2024 1:52 PM ELECTROTYPE MOLDER COLONOSCOPY Routine 12/24/2024 1:52 PM ELECTROTYPE MOLDER UPPER GI ENDOSCOPY Routine 12/24/2024 1: 52 PM ELECTROTYPE MOLDER EGD (ESOPHAGEALGASTROD UODENOSCOPY) Routine 12/24/2024 1:52 PM ELECTROTYPE MOLDER RENAL FUNCTION PANEL, S Routine 12/24/2024 8:41 AM ELECTROTYPE MOLDER CBC WITH DIFFERENTIAL, B Routine 12/24/2024 8:41 AM ELECTROTYPE MOLDER MAGNESIUM, S Routine 12/24/2024 8:41 AM ELECTROTYPE MOLDER RENAL FUNCTION PANEL, S Routine 12/23/2024 6:54 AM ELECTROTYPE MOLDER CBC WITH DIFFERENTIAL, B Routine 12/23/2024 6:54 AM ELECTROTYPE MOLDER MAGNESIUM, S Routine 12/23/2024 6:54 AM ELECTROTYPE MOLDER RENAL FUNCTION PANEL, S Routine 12/22/2024 10:45 AM ELECTROTYPE MOLDER CBC WITH DIFFERENTIAL, B Routine 12/22/2024 10:45 AM ELECTROTYPE MOLDER MAGNESIUM, S Routine 12/22/2024 10:45 AM ELECTROTYPE MOLDER GI PATHOGEN PANEL, PCR, F Routine 12/22/2024 12:48 AM ELECTROTYPE MOLDER DX ABDOMEN PORTABLE ANTERIOR POSTERIOR 1 VIEW RAD - Routine (most inpatients and all outpatients) 12/21/2024 11:59 PM ELECTROTYPE MOLDER ECG Routine 12/21/2024 11:48 PM ELECTROTYPE MOLDER BACTERIA / ANDREA CULTURE, BLOOD STAT 12/21/2024 9:12 PM ELECTROTYPE MOLDER HEPATIC FUNCTION PANEL, S STAT 12/21/2024 9:00 PM ELECTROTYPE MOLDER BACTERIA / ANDREA CULTURE, BLOOD STAT 12/21/2024 9:00 PM ELECTROTYPE MOLDER BASIC METABOLIC PANEL, S/P STAT 12/21/2024 9:00 PM ELECTROTYPE MOLDER LACTATE FOR SEPSIS WITH REFLEX STAT 12/21/2024 8:59 PM ELECTROTYPE MOLDER CBC WITH DIFFERENTIAL, B STAT 12/21/2024 8:59 PM ELECTROTYPE MOLDER THYROID FUNCTION CASCADE, S Routine 12/21/2024 8:53 PM ELECTROTYPE MOLDER documented in this encounter Results * (ABNORMAL) Renal Function Panel (12/29/2024 7:25 AM ELECTROTYPE MOLDER) Potassium, S 4.7 3.6 - 5.2 mmol/L 12/29/2024 8:41 AM ELECTROTYPE MOLDER DTL Sodium, S 138 135 - 145 mmol/L 12/29/2024 8:41 AM ELECTROTYPE MOLDER DTL Chloride, S 105 98 - 107 mmol/L 12/29/2024 8:41 AM ELECTROTYPE MOLDER DTL Bicarbonate, S 25 22 - 29 mmol/L 12/29/2024 8:41 AM ELECTROTYPE MOLDER DTL Anion Gap 8 7 - 15 12/29/2024 8:41 AM ELECTROTYPE MOLDER DTL BUN (Blood Urea Nitrogen), S 20 8 - 24 mg/dL 12/29/2024 8:41 AM ELECTROTYPE MOLDER DTL Creatinine 1.30 0.74 - 1.35 mg/dL 12/29/2024 8:41 AM ELECTROTYPE MOLDER DTL Estimated GFR (eGFR) 59(L) >=60 mL/min/BSA 12/29/2024 8:41 AM ELECTROTYPE MOLDER DTL Comment: Estimated GFR calculated using the 2020 CKD_EPI creatinine equation. Calcium, Total, S 7.9(L) 8.8 - 10.2 mg/dL 12/29/2024 8:41 AM ELECTROTYPE MOLDER DTL Glucose, S 131 70 - 140 mg/dL 12/29/2024 8:41 AM ELECTROTYPE MOLDER DTL Albumin, S 2.9(L) 3.5 - 5.0 g/dL 12/29/2024 8:41 AM ELECTROTYPE MOLDER DTL Phosphorus (Inorganic), S 2.1(L) 2.5 - 4.5 mg/dL 12/29/2024 8:41 AM ELECTROTYPE MOLDER DTL Blood (Blood, Venous) 12/29/2024 7:25 AM ELECTROTYPE MOLDER 12/29/2024 8:03 AM ELECTROTYPE MOLDER us Justyn Torrez M.D. LAB BLOOD ADD-ON Final Result [facility] [address] [place] [address], [facility] [address] [place] [address] * Magnesium (12/29/2024 7:25 AM ELECTROTYPE MOLDER) Magnesium, S 1.7 1.7 - 2.3 mg/dL 12/29/2024 8:41 AM ELECTROTYPE MOLDER DTL Blood (Blood, Venous) 12/29/2024 7:25 AM ELECTROTYPE MOLDER 12/29/2024 8:03 AM ELECTROTYPE MOLDER us Justyn Torrez M.D. LAB BLOOD ADD-ON Final Result [facility] [address] [place] [address], [facility] DTL [facility] [address] [place] [address] * (ABNORMAL) CBC with Differential, Blood (12/29/2024 7:25 AM ELECTROTYPE MOLDER) Hemoglobin 9.8(L) 13.2 - 16.6 g/dL 12/29/2024 8:16 AM ELECTROTYPE MOLDER DTL Hematocrit 29.0(L) 38.3 - 48.6 % 12/29/2024 8:16 AM ELECTROTYPE MOLDER DTL Erythrocytes 2.96(L) 4.35 - 5.65 x10(12)/L 12/29/2024 8:16 AM ELECTROTYPE MOLDER DTL MCV 98.0(H) 78.2 - 97.9 fL 12/29/2024 8:16 AM ELECTROTYPE MOLDER DTL RBC Distrib Width 14.1 11.8 - 14.5 % 12/29/2024 8:16 AM ELECTROTYPE MOLDER DTL Platelet Count 162 135 - 317 x10(9)/L 12/29/2024 8:16 AM ELECTROTYPE MOLDER DTL Leukocytes 7.0 3.4 - 9.6 x10(9)/L 12/29/2024 8:16 AM ELECTROTYPE MOLDER DTL Neutrophils 6.34 1.56 - 6.45 x10(9)/L 12/29/2024 8:16 AM ELECTROTYPE MOLDER DHPM Lymphocytes 0.43(L) 0.95 - 3.07 x10(9)/L 12/29/2024 8:16 AM ELECTROTYPE MOLDER DTL Monocytes 0.25(L) 0.26 - 0.81 x10(9)/L 12/29/2024 8:16 AM ELECTROTYPE MOLDER DTL Eosinophils <0.03 0.03 - 0.48 x10(9)/L 12/29/2024 8:16 AM ELECTROTYPE MOLDER DTL Basophils <0.03 0.01 - 0.08 x10(9)/L 12/29/2024 8:16 AM ELECTROTYPE MOLDER DTL Blood (Blood, Venous) 12/29/2024 7:25 AM ELECTROTYPE MOLDER 12/29/2024 7:56 AM ELECTROTYPE MOLDER us Justyn Torrez M.D. LAB BLOOD ADD-ON Final Result Performing Organization Address [facility]/ZIP Co de Phone Number [facility] [address] [place] [address], [place] DTL [facility] [address] [place] [address] DHPM [facility] [address] [place] [address] * (ABNORMAL) Basic Metabolic Panel (12/28/2024 4:08 PM ELECTROTYPE MOLDER) Pathologist [facility] Potassium, S 3.7 3.6 - 5.2 mmol/L 12/28/2024 4:57 PM ELECTROTYPE MOLDER DTL Sodium, S 138 135 - 145 mmol/L 12/28/2024 4:57 PM ELECTROTYPE MOLDER DTL Chloride, S 104 98 - 107 mmol/L 12/28/2024 4:57 PM ELECTROTYPE MOLDER DTL Bicarbonate, S 24 22 - 29 mmol/L 12/28/2024 4:57 PM ELECTROTYPE MOLDER DTL Anion Gap 10 7 - 15 12/28/2024 4:57 PM ELECTROTYPE MOLDER DTL BUN (Blood Urea Nitrogen), S 15 8 - 24 mg/dL 12/28/2024 4:57 PM ELECTROTYPE MOLDER DTL Creatinine 1.34 0.74 - 1.35 mg/dL 12/28/2024 4:57 PM ELECTROTYPE MOLDER DTL Estimated GFR (eGFR) 57(L) >=60 mL/min/BSA 12/28/2024 4:57 PM ELECTROTYPE MOLDER DTL Comment: Estimated GFR calculated using the 2020 CKD_EPI creatinine equation. Calcium, Total, S 8.0(L) 8.8 - 10.2 mg/dL 12/28/2024 4:57 PM ELECTROTYPE MOLDER DTL Glucose, S 137 70 - 140 mg/dL 12/28/2024 4:57 PM ELECTROTYPE MOLDER DTL Blood (Blood, Venous) 12/28/2024 4:08 PM ELECTROTYPE MOLDER 12/28/2024 4:39 PM ELECTROTYPE MOLDER us Faviola Caraballo M.D. LAB BLOOD ADD-ON Final Result [facility] [address] [place] [address], [facility] DTL [facility] [address] [place] [address] * (ABNORMAL) Renal Function Panel (12/28/2024 5:52 AM ELECTROTYPE MOLDER) Potassium, S 3.4(L) 3.6 - 5.2 mmol/L 12/28/2024 6:49 AM ELECTROTYPE MOLDER DTL Sodium, S 139 135 - 145 mmol/L 12/28/2024 6:49 AM ELECTROTYPE MOLDER DTL Chloride, S 108(H) 98 - 107 mmol/L 12/28/2024 6:49 AM ELECTROTYPE MOLDER DTL Bicarbonate, S 23 22 - 29 mmol/L 12/28/2024 6:49 AM ELECTROTYPE MOLDER DTL Anion Gap 8 7 - 15 12/28/2024 6:49 AM ELECTROTYPE MOLDER DTL BUN (Blood Urea Nitrogen), S 11 8 - 24 mg/dL 12/28/2024 6:49 AM ELECTROTYPE MOLDER DTL Creatinine 1.18 0.74 - 1.35 mg/dL 12/28/2024 6:49 AM ELECTROTYPE MOLDER DTL Estimated GFR (eGFR) 66 >=60 mL/min/BSA 12/28/2024 6:49 AM ELECTROTYPE MOLDER DTL Comment: Estimated GFR calculated using the 2020 CKD_EPI creatinine equation. Calcium, Total, S 7.8(L) 8.8 - 10.2 mg/dL 12/28/2024 6:49 AM ELECTROTYPE MOLDER DTL Glucose, S 136 70 - 140 mg/dL 12/28/2024 6:49 AM ELECTROTYPE MOLDER DTL Albumin, S 2.7(L) 3.5 - 5.0 g/dL 12/28/2024 6:49 AM ELECTROTYPE MOLDER DTL Phosphorus (Inorganic), S 2.0(L) 2.5 - 4.5 mg/dL 12/28/2024 6:49 AM ELECTROTYPE MOLDER DTL Blood (Blood, Venous) 12/28/2024 5:52 AM ELECTROTYPE MOLDER 12/28/2024 6:25 AM ELECTROTYPE MOLDER us Justyn Torrez M.D. LAB BLOOD ADD-ON Final Result [facility] [address] [place] [address], [address] [address] * Magnesium (12/28/2024 5:52 AM ELECTROTYPE MOLDER) [facility] Magnesium, S 1.8 1.7 - 2.3 mg/dL 12/28/2024 6:49 AM ELECTROTYPE MOLDER DTL Blood (Blood, Venous) 12/28/2024 5:52 AM ELECTROTYPE MOLDER 12/28/2024 6:25 AM ELECTROTYPE MOLDER us Justyn Torrez M.D. LAB BLOOD ADD-ON Final Result Performing Organization Address [facility] Co de Phone Number [facility] [address] [place] [address], [address] [address] * (ABNORMAL) CBC with Differential, Blood (12/28/2024 5:52 AM ELECTROTYPE MOLDER) [facility] Hemoglobin 9.2(L) 13.2 - 16.6 g/dL 12/28/2024 6:26 AM ELECTROTYPE MOLDER DTL Hematocrit 28.2(L) 38.3 - 48.6 % 12/28/2024 6:26 AM ELECTROTYPE MOLDER DTL Erythrocytes 2.92(L) 4.35 - 5.65 x10(12)/L 12/28/2024 6:26 AM ELECTROTYPE MOLDER DTL MCV 96.6 78.2 - 97.9 fL 12/28/2024 6:26 AM ELECTROTYPE MOLDER DTL RBC Distrib Width 13.9 11.8 - 14.5 % 12/28/2024 6:26 AM ELECTROTYPE MOLDER DTL Platelet Count 150 135 - 317 x10(9)/L 12/28/2024 6:26 AM ELECTROTYPE MOLDER DTL Leukocytes 6.4 3.4 - 9.6 x10(9)/L 12/28/2024 6:26 AM ELECTROTYPE MOLDER DTL Neutrophils 5.87 1.56 - 6.45 x10(9)/L 12/28/2024 6:25 AM ELECTROTYPE MOLDER DHPM Lymphocytes 0.37(L) 0.95 - 3.07 x10(9)/L 12/28/2024 6:26 AM ELECTROTYPE MOLDER DTL Monocytes 0.11(L) 0.26 - 0.81 x10(9)/L 12/28/2024 6:26 AM ELECTROTYPE MOLDER DTL Eosinophils <0.03 0.03 - 0.48 x10(9)/L 12/28/2024 6:26 AM ELECTROTYPE MOLDER DTL Basophils <0.03 0.01 - 0.08 x10(9)/L 12/28/2024 6:26 AM ELECTROTYPE MOLDER DTL Blood (Blood, Venous) 12/28/2024 5:52 AM ELECTROTYPE MOLDER 12/28/2024 6:18 AM ELECTROTYPE MOLDER us Justyn Torrez M.D. LAB BLOOD ADD-ON Final Result [facility] [address] [place] [address], [facility] DTL [facility] [address] [place] [address] [facility] [address] [place] [address] * QuantiFERON-Tb Gold Plus, Blood (12/28/2024 5:52 AM ELECTROTYPE MOLDER) [facility] QuantiFERON-TB Gold Plus Result Negative Negative 12/29/2024 10:23 AM ELECTROTYPE MOLDER [facility] Comment: No interferon-gamma response to M. tuberculosis antigens was detected. Latent infection with M. tuberculosis is unlikely. A single negative result does not exclude infection with M. tuberculosis. In patients at high risk for M.tuberculosis infection, a second test should be considered in accordance with the 2017 ATS/IDSA/CDC Clinical Practice Guidelines for Diagnosis of Tuberculosis in Adults and Children [Lewinsohn DM et. al. Clin. Infect. Dis. 2017;64(2):111-115]. The reference range for the 'TB1 Ag minus Nil Result' and 'TB2 Ag minus Nil Result' is an Interferon-gamma level <0.35 IU/mL. TB1 Ag minus Nil Result 0.02 IU/mL 12/29/2024 10:23 AM ELECTROTYPE MOLDER [facility] TB2 Ag minus Nil Result 0.01 IU/mL 12/29/2024 10:23 AM [facility] Mitogen minus Nil Result 0.72 IU/mL 12/29/2024 10:23 AM ELECTROTYPE MOLDER [facility] Nil Result 0.01 IU/mL 12/29/2024 10:23 AM [facility] Blood (Blood, Venous) 12/28/2024 5:52 AM ELECTROTYPE MOLDER 12/28/2024 8:15 AM ELECTROTYPE MOLDER Narrative [facility] - 12/29/2024 10:23 AM ELECTROTYPE MOLDER Specimen Information: Specimen ID: [id number] Specimen Type: Blood Specimen Collection Start Date: 12/28/2024 5:52 AM Specimen Received Date: 12/28/2024 8:15 AM Specimen ID: [id number] Specimen Type: Blood Specimen Collection Start Date: 12/28/2024 5:52 AM Specimen Received Date: 12/28/2024 8:15 AM Specimen ID: [id number] Specimen Type: Blood Specimen Collection Start Date: 12/28/2024 5:52 AM Specimen Received Date: 12/28/2024 8:15 AM Specimen ID: [id number] Specimen Type: Blood Specimen Collection Start Date: 12/28/2024 5:52 AM Specimen Received Date: 12/28/2024 8:15 AM Yudi Motley M.D. LAB MICROBIOLOGY - BLOOD ORD ERABLES Final Result [facility] [address] [place] [address] [facility] [address] [place] [address] * (ABNORMAL) Renal Function Panel (12/27/2024 8:11 AM ELECTROTYPE MOLDER) Potassium, S 3.5(L) 3.6 - 5.2 mmol/L 12/27/2024 9:55 AM ELECTROTYPE MOLDER DTL Sodium, S 139 135 - 145 mmol/L 12/27/2024 9:55 AM ELECTROTYPE MOLDER DTL Chloride, S 110(H) 98 - 107 mmol/L 12/27/2024 9:55 AM ELECTROTYPE MOLDER DTL Bicarbonate, S 17(L) 22 - 29 mmol/L 12/27/2024 9:55 AM ELECTROTYPE MOLDER DTL Anion Gap 12 7 - 15 12/27/2024 9:55 AM ELECTROTYPE MOLDER DTL BUN (Blood Urea Nitrogen), S 9 8 - 24 mg/dL 12/27/2024 9:55 AM ELECTROTYPE MOLDER DTL Creatinine 1.30 0.74 - 1.35 mg/dL 12/27/2024 9:55 AM ELECTROTYPE MOLDER DTL Estimated GFR (eGFR) 59(L) >=60 mL/min/BSA 12/27/2024 9:55 AM ELECTROTYPE MOLDER DTL Comment: Estimated GFR calculated using the 2020 CKD_EPI creatinine equation. Calcium, Total, S 7.9(L) 8.8 - 10.2 mg/dL 12/27/2024 9:55 AM ELECTROTYPE MOLDER DTL Glucose, S 141(H) 70 - 140 mg/dL 12/27/2024 9:55 AM ELECTROTYPE MOLDER DTL Albumin, S 3.0(L) 3.5 - 5.0 g/dL 12/27/2024 9:55 AM ELECTROTYPE MOLDER DTL Phosphorus (Inorganic), S 2.8 2.5 - 4.5 mg/dL 12/27/2024 9:55 AM ELECTROTYPE MOLDER DTL Blood (Blood, Venous) 12/27/2024 8:11 AM ELECTROTYPE MOLDER 12/27/2024 9:33 AM ELECTROTYPE MOLDER us Justyn Torrez M.D. LAB BLOOD ADD-ON Final Result [facility] [address] [place] [address], [facility] [address] [place] [address] * (ABNORMAL) Magnesium (12/27/2024 8:11 AM ELECTROTYPE MOLDER) Magnesium, S 1.6(L) 1.7 - 2.3 mg/dL 12/27/2024 10:20 AM ELECTROTYPE MOLDER DTL Blood (Blood, Venous) 12/27/2024 8:11 AM ELECTROTYPE MOLDER 12/27/2024 9:33 AM ELECTROTYPE MOLDER us Justyn Torrez M.D. LAB BLOOD ADD-ON Final Result [facility] [address] [place] [address], [facility] DTL [facility] [address] [place] [address] * (ABNORMAL) CBC with Differential, Blood (12/27/2024 8:11 AM ELECTROTYPE MOLDER) Hemoglobin 9.8(L) 13.2 - 16.6 g/dL 12/27/2024 9:24 AM ELECTROTYPE MOLDER DTL Hematocrit 30.5(L) 38.3 - 48.6 % 12/27/2024 9:24 AM ELECTROTYPE MOLDER DTL Erythrocytes 3.07(L) 4.35 - 5.65 x10(12)/L 12/27/2024 9:24 AM ELECTROTYPE MOLDER DTL MCV 99.3(H) 78.2 - 97.9 fL 12/27/2024 9:24 AM ELECTROTYPE MOLDER DTL RBC Distrib Width 14.2 11.8 - 14.5 % 12/27/2024 9:24 AM ELECTROTYPE MOLDER DTL Platelet Count 175 135 - 317 x10(9)/L 12/27/2024 9:24 AM ELECTROTYPE MOLDER DTL Leukocytes 7.4 3.4 - 9.6 x10(9)/L 12/27/2024 9:24 AM ELECTROTYPE MOLDER DTL Neutrophils 6.89(H) 1.56 - 6.45 x10(9)/L 12/27/2024 9:24 AM ELECTROTYPE MOLDER DHPM Lymphocytes 0.38(L) 0.95 - 3.07 x10(9)/L 12/27/2024 9:24 AM ELECTROTYPE MOLDER DTL Monocytes 0.11(L) 0.26 - 0.81 x10(9)/L 12/27/2024 9:24 AM ELECTROTYPE MOLDER DTL Eosinophils <0.03 0.03 - 0.48 x10(9)/L 12/27/2024 9:24 AM ELECTROTYPE MOLDER DTL Basophils <0.03 0.01 - 0.08 x10(9)/L 12/27/2024 9:24 AM ELECTROTYPE MOLDER DTL Blood (Blood, Venous) 12/27/2024 8:11 AM ELECTROTYPE MOLDER 12/27/2024 9:15 AM ELECTROTYPE MOLDER us Justyn Torrez M.D. LAB BLOOD ADD-ON Final Result Performing Organization Address [facility] de Phone Number [facility] [address] [place] [address], [place] DTL [facility] [address] [place] [address] DHPM [facility] [address] [place] [address] * ECG 12 Lead (12/26/2024 12:55 PM ELECTROTYPE MOLDER) Ventricular Rate ECG/Min 79 BPM MUSE FL Interval 132 ms MUSE QRSD Interval 86 ms MUSE QT Interval 384 ms MUSE QTC Interval 440 ms MUSE P [place] 27 degrees MUSE R [place] 32 degrees MUSE T Wave [place] 26 degrees MUSE 12/26/2024 12:5 5 PM ELECTROTYPE MOLDER 12/26/2024 12:59 PM ELECTROTYPE MOLDER Impressions MUSE - 12/26/2024 12:59 PM ELECTROTYPE MOLDER Normal sinus rhythm Normal ECG When compared with ECG of 21-Dec-2024 23:48, No significant change was found Reviewed by JERED García Narrative Procedure Note Justino Sosa M.D. - 12/26/2024 IMPRESSION: Normal sinus rhythm Normal ECG When compared with ECG of 21-Dec-2024 23:48, No significant change was found Reviewed by JERED García us Yudi Motley M.D. ECG ORDERABLES Final Result Performing Organization Address [facility] Co de Phone Number MUSE NA * HBs Antibody, Serum (12/26/2024 9:31 AM ELECTROTYPE MOLDER) HBs Antibody, S Negative 2:23 PM ELECTROTYPE MOLDER [facility] Comment: Patient is NOT immune to HBV infection. Consumption of high-dose biotin supplement within 12 hours of blood collection for this test can cause false-negative results. ----REFERENCE VALUE---- Unvaccinated: Negative Vaccinated: Positive HBs Antibody, Quantitative, S <3.5 mIU/mL 12/26/2024 2:23 PM ELECTROTYPE MOLDER [facility] Comment: ----REFERENCE VALUE---- Unvaccinated: <8.5 mIU/mL Vaccinated: >=11.5 mIU/mL Blood (Blood, Venous) 12/26/2024 9:31 AM ELECTROTYPE MOLDER 12/26/2024 12:27 PM ELECTROTYPE MOLDER Pina Dorado M.D., M.P.H. LAB MICROBIOLOGY - BLOOD ORDERABLES Final Result Performing Organization Address City/[facility]/ZIP Co de Phone Number [facility] [address] [place] [id number] [place] [address] [place] [address] * Hepatitis B Surface Antigen (12/26/2024 9:31 AM ELECTROTYPE MOLDER) HBs Antigen, S Negative Negative 12/26/2024 2:23 PM ELECTROTYPE MOLDER [facility] Blood (Blood, Venous) 12/26/2024 9:31 AM ELECTROTYPE MOLDER 12/26/2024 12:27 PM ELECTROTYPE MOLDER Pina Dorado M.D., M.P.H. LAB MICROBIOLOGY - BLOOD ORDERABLES Final Result Performing Organization Address [facility]/ZIP Co de Phone Number [facility] [address] [place] [address] [facility] [address] [place] [address] * HBc Total Ab, Serum (12/26/2024 9:31 AM ELECTROTYPE MOLDER) HBc Total Ab, S Negative Negative 12/26/2024 2:23 PM ELECTROTYPE MOLDER [facility] Blood (Blood, Venous) 12/26/2024 9:31 AM ELECTROTYPE MOLDER 12/26/2024 12:27 PM ELECTROTYPE MOLDER Pina Dorado M.D., M.P.H. LAB MICROBIOLOGY - BLOOD ORDERABLES Final Result [facility] [address] [place] [address] [facility] [address] [place] [address] * (ABNORMAL) Renal Function Panel (12/26/2024 9:31 AM ELECTROTYPE MOLDER) Potassium, S 4.0 3.6 - 5.2 mmol/L 12/26/2024 11:26 AM ELECTROTYPE MOLDER DTL Sodium, S 139 135 - 145 mmol/L 12/26/2024 11:26 AM ELECTROTYPE MOLDER DTL Chloride, S 114(H) 98 - 107 mmol/L 12/26/2024 11:26 AM ELECTROTYPE MOLDER DTL Bicarbonate, S 14(L) 22 - 29 mmol/L 12/26/2024 11:26 AM ELECTROTYPE MOLDER DTL Anion Gap 11 7 - 15 12/26/2024 11:26 AM ELECTROTYPE MOLDER DTL BUN (Blood Urea Nitrogen), S 6(L) 8 - 24 mg/dL 12/26/2024 11:26 AM ELECTROTYPE MOLDER DTL Creatinine 1.17 0.74 - 1.35 mg/dL 12/26/2024 11:26 AM ELECTROTYPE MOLDER DTL Estimated GFR (eGFR) 67 >=60 mL/min/BSA 12/26/2024 11:26 AM ELECTROTYPE MOLDER DTL Comment: Estimated GFR calculated using the 2020 CKD_EPI creatinine equation. Calcium, Total, S 7.6(L) 8.8 - 10.2 mg/dL 12/26/2024 11:26 AM ELECTROTYPE MOLDER DTL Glucose, S 114 70 - 140 mg/dL 12/26/2024 11:26 AM ELECTROTYPE MOLDER DTL Albumin, S 2.8(L) 3.5 - 5.0 g/dL 12/26/2024 11:26 AM ELECTROTYPE MOLDER DTL Phosphorus (Inorganic), S 3.1 2.5 - 4.5 mg/dL 12/26/2024 11:55 AM ELECTROTYPE MOLDER DTL Blood (Blood, Venous) 12/26/2024 9:31 AM ELECTROTYPE MOLDER 12/26/2024 10:10 AM ELECTROTYPE MOLDER us Justyn Torrez M.D. LAB BLOOD ADD-ON Final Result [facility] [address] [place] [address], [facility] [address] [place] [address] * Magnesium (12/26/2024 9:31 AM ELECTROTYPE MOLDER) [facility] Magnesium, S 1.7 1.7 - 2.3 mg/dL 12/26/2024 11:26 AM ELECTROTYPE MOLDER DTL Blood (Blood, Venous) 12/26/2024 9:31 AM ELECTROTYPE MOLDER 12/26/2024 10:10 AM ELECTROTYPE MOLDER us Justyn Torrez M.D. LAB BLOOD ADD-ON Final Result [facility] [address] [place] [address], [facility] [address] [place] [address] * (ABNORMAL) CBC with Differential, Blood (12/26/2024 9:31 AM ELECTROTYPE MOLDER) [facility] Hemoglobin 9.7(L) 13.2 - 16.6 g/dL 12/26/2024 10:07 AM ELECTROTYPE MOLDER DTL Hematocrit 30.2(L) 38.3 - 48.6 % 12/26/2024 10:07 AM ELECTROTYPE MOLDER DTL Erythrocytes 3.01(L) 4.35 - 5.65 x10(12)/L 12/26/2024 10:07 AM ELECTROTYPE MOLDER DTL MCV 100.3(H) 78.2 - 97.9 fL 12/26/2024 10:07 AM ELECTROTYPE MOLDER DTL RBC Distrib Width 14.3 11.8 - 14.5 % 12/26/2024 10:07 AM ELECTROTYPE MOLDER DTL Platelet Count 181 135 - 317 x10(9)/L 12/26/2024 10:07 AM ELECTROTYPE MOLDER DTL Leukocytes 5.5 3.4 - 9.6 x10(9)/L 12/26/2024 10:07 AM ELECTROTYPE MOLDER DTL Neutrophils 4.18 1.56 - 6.45 x10(9)/L 12/26/2024 10:07 AM ELECTROTYPE MOLDER DHPM Lymphocytes 0.78(L) 0.95 - 3.07 x10(9)/L 12/26/2024 10:07 AM ELECTROTYPE MOLDER DTL Monocytes 0.48 0.26 - 0.81 x10(9)/L 12/26/2024 10:07 AM ELECTROTYPE MOLDER DTL Eosinophils <0.03 0.03 - 0.48 x10(9)/L 12/26/2024 10:07 AM ELECTROTYPE MOLDER DTL Basophils <0.03 0.01 - 0.08 x10(9)/L 12/26/2024 10:07 AM ELECTROTYPE MOLDER DTL Blood (Blood, Venous) 12/26/2024 9:31 AM ELECTROTYPE MOLDER 12/26/2024 9:57 AM ELECTROTYPE MOLDER us Justyn Torrez M.D. LAB BLOOD ADD-ON Final Result [facility] [address] [place] [address], [facility] DTL [facility] [address] [place] [address] * (ABNORMAL) Renal Function Panel (12/25/2024 6:42 AM ELECTROTYPE MOLDER) Potassium, S 3.9 3.6 - 5.2 mmol/L 12/25/2024 7:37 AM ELECTROTYPE MOLDER DTL Sodium, S 140 135 - 145 mmol/L 12/25/2024 7:37 AM ELECTROTYPE MOLDER DTL Chloride, S 115(H) 98 - 107 mmol/L 12/25/2024 7:37 AM ELECTROTYPE MOLDER DTL Bicarbonate, S 15(L) 22 - 29 mmol/L 12/25/2024 7:37 AM ELECTROTYPE MOLDER DTL Anion Gap 10 7 - 15 12/25/2024 7:37 AM ELECTROTYPE MOLDER DTL BUN (Blood Urea Nitrogen), S 6(L) 8 - 24 mg/dL 12/25/2024 7:37 AM ELECTROTYPE MOLDER DTL Creatinine 1.27 0.74 - 1.35 mg/dL 12/25/2024 7:37 AM ELECTROTYPE MOLDER DTL Estimated GFR (eGFR) 61 >=60 mL/min/BSA 12/25/2024 7:37 AM ELECTROTYPE MOLDER DTL Comment: Estimated GFR calculated using the 2020 CKD_EPI creatinine equation. Calcium, Total, S 7.7(L) 8.8 - 10.2 mg/dL 12/25/2024 7:37 AM ELECTROTYPE MOLDER DTL Glucose, S 115 70 - 140 mg/dL 12/25/2024 7:37 AM ELECTROTYPE MOLDER DTL Albumin, S 2.8(L) 3.5 - 5.0 g/dL 12/25/2024 7:37 AM ELECTROTYPE MOLDER DTL Phosphorus (Inorganic), S 2.4(L) 2.5 - 4.5 mg/dL 12/25/2024 7:37 AM ELECTROTYPE MOLDER DTL Blood (Blood, Venous) 12/25/2024 6:42 AM ELECTROTYPE MOLDER 12/25/2024 7:20 AM ELECTROTYPE MOLDER us Justyn Torrez M.D. LAB BLOOD ADD-ON Final Result Performing Organization Address City/[facility]/ZIP Co de Phone Number [address] [place] [address] * (ABNORMAL) Magnesium (12/25/2024 6:42 AM ELECTROTYPE MOLDER) Magnesium, S 1.6(L) 1.7 - 2.3 mg/dL 12/25/2024 7:37 AM ELECTROTYPE MOLDER DTL Blood (Blood, Venous) 12/25/2024 6:42 AM ELECTROTYPE MOLDER 12/25/2024 7:20 AM ELECTROTYPE MOLDER us Justyn Torrez M.D. LAB BLOOD [place] [address] * (ABNORMAL) CBC with Differential, Blood (12/25/2024 6:42 AM ELECTROTYPE MOLDER) Hemoglobin 9.7(L) 13.2 - 16.6 g/dL 12/25/2024 7:08 AM ELECTROTYPE MOLDER DTL Hematocrit 29.7(L) 38.3 - 48.6 % 12/25/2024 7:08 AM ELECTROTYPE MOLDER DTL Erythrocytes 2.94(L) 4.35 - 5.65 x10(12)/L 12/25/2024 7:08 AM ELECTROTYPE MOLDER DTL MCV 101.0(H) 78.2 - 97.9 fL 12/25/2024 7:08 AM ELECTROTYPE MOLDER DTL RBC Distrib Width 14.3 11.8 - 14.5 % 12/25/2024 7:08 AM ELECTROTYPE MOLDER DTL Platelet Count 188 135 - 317 x10(9)/L 12/25/2024 7:08 AM ELECTROTYPE MOLDER DTL Leukocytes 6.6 3.4 - 9.6 x10(9)/L 12/25/2024 7:08 AM ELECTROTYPE MOLDER DTL Neutrophils 4.76 1.56 - 6.45 x10(9)/L 12/25/2024 7:08 AM ELECTROTYPE MOLDER DHPM Lymphocytes 0.63(L) 0.95 - 3.07 x10(9)/L 12/25/2024 7:08 AM ELECTROTYPE MOLDER DTL Monocytes 1.14(H) 0.26 - 0.81 x10(9)/L 12/25/2024 7:08 AM ELECTROTYPE MOLDER DTL Eosinophils <0.03 0.03 - 0.48 x10(9)/L 12/25/2024 7:08 AM ELECTROTYPE MOLDER DTL Basophils 0.03 0.01 - 0.08 x10(9)/L 12/25/2024 7:08 AM ELECTROTYPE MOLDER DTL Blood (Blood, Venous) 12/25/2024 6:42 AM ELECTROTYPE MOLDER 12/25/2024 7:00 AM ELECTROTYPE MOLDER us Justyn Torrez M.D. LAB BLOOD ADD-ON Final Result [facility] [address] [place] [address], [facility] DTL [facility] [address] [place] [address] DHPM [facility] [address] [place] [address] * (ABNORMAL) Fungal Smear (12/24/2024 2:19 PM ELECTROTYPE MOLDER) Fungal Smear YEAST and PSEUDOHYPH AE(A) 12/24/2024 10:20 PM ELECTROTYPE MOLDER DTL [place] (Esophagus) 12/24/2024 2:19 PM ELECTROTYPE MOLDER Magen Borrego M.D. LAB MICROBIOLOGY - GENERAL O RDERABLES Final Result [facility] [address] [place] [address], [facility] DTL [facility] [address] [place] [address] * Surgical Pathology (12/24/2024 2:08 PM ELECTROTYPE MOLDER) 12/25/2024 2:29 PM ELECTROTYPE MOLDER DTL Participated in the Interpretation Urbano Reno M.D.-Pathology Fellow 12/25/2024 2:29 PM ELECTROTYPE MOLDER DTL Report electronically signed by Mundo Darby M.D. I verify that I have examined all relevant slides/materials for the specimen(s) and rendered or confirmed the diagnosis. 12/25/2024 2:29 PM ELECTROTYPE MOLDER DTL Gross Description A: Received in formalin [...] E1. Grossed by LMB. 12/25/2024 2:29 PM ELECTROTYPE MOLDER DTL Addendum CMV immunostain, (blocks A1, B1, C1 and D1), H. pylori immunostain (block B1), and AFB and GMS special stains (block D1) are all negative for microorganisms. Signed by Mundo Darby M.D. 12/29/2024 1:31 PM This test was developed using an analyte specific reagent. Its performance characteristics were determined by [facility] in a manner consistent with CLIA requirements. This test has not been cleared or approved by the U.S. Food and Drug Administration. 12/29/2024 1:31 PM ELECTROTYPE MOLDER DTL Comment:REVISED RESULTS Interpretation FINAL DIAGNOSIS A. [...] in an addendum. See comment. C. Ileum, Dinah-terminal ileum, endoscopic biopsy: Moderately active chronic ileitis [...] assessment of this case. 12/29/2024 1:31 PM ELECTROTYPE MOLDER DTL Biopsy (Duodenum) 12/24/2024 2:08 PM ELECTROTYPE MOLDER Biopsy (Stomach) 12/24/2024 2:09 PM ELECTROTYPE MOLDER Biopsy (Ileum) 12/24/2024 2: 27 PM ELECTROTYPE MOLDER Biopsy (Colon) 12/24/2024 2: 30 PM ELECTROTYPE MOLDER Polyp (Colon) 12/24/2024 2:3 6 PM ELECTROTYPE MOLDER us Magen Borrego M.D. LAB SURG PATH ORDERABLES Juan marta Result - Final [facility] [address] [place] [address], [facility] DTL [address] [place] [address] * Colonoscopy (12/24/2024 1:52 PM ELECTROTYPE MOLDER) 12/24/2024 1:52 PM ELECTROTYPE MOLDER Impressions [facility] - 12/24/2024 2:45 PM ELECTROTYPE MOLDER Post-op Diagnoses: - Preparation of the colon [...] of the ileum was normal. Biopsied. Narrative [facility] - 12/24/2024 2:45 PM ELECTROTYPE MOLDER Zana 6 GI GI Patient Name: Cr [...] bowel preparation was evaluated using the BBPS ([place] Bowel Preparation Scale) with scores of: Right [...] M.P.H. GI PROCEDURE ORDERA BLES Final Result [facility] NA * Upper GI Endoscopy (12/24/2024 1:52 PM ELECTROTYPE MOLDER) 12/24/2024 1:52 PM ELECTROTYPE MOLDER Impressions [facility] - 12/24/2024 2:20 PM ELECTROTYPE MOLDER Post-op Diagnoses: - Esophagogastric landmarks identified. - Esophageal plaques were found, suspicious for candidiasis. Brushings performed. - Normal stomach. Biopsied. - Mucosal changes in the duodenum with mild atrophy and nodularity. Biopsied. Narrative [facility] - 12/24/2024 2:20 PM ELECTROTYPE MOLDER Zana 6 GI GI Patient Name: Cr [...] Pina Dorado M.D., M.P.H. GI PROCEDURE ORDERA KYLEE Final Result [facility] NA * (ABNORMAL) Renal Function Panel (12/24/2024 8:41 AM ELECTROTYPE MOLDER) Potassium, S 3.4(L) 3.6 - 5.2 mmol/L 12/24/2024 10:04 AM ELECTROTYPE MOLDER DTL Sodium, S 139 135 - 145 mmol/L 12/24/2024 10:04 AM ELECTROTYPE MOLDER DTL Chloride, S 114(H) 98 - 107 mmol/L 12/24/2024 10:04 AM ELECTROTYPE MOLDER DTL Bicarbonate, S 18(L) 22 - 29 mmol/L 12/24/2024 10:04 AM ELECTROTYPE MOLDER DTL Anion Gap 7 7 - 15 12/24/2024 10:04 AM ELECTROTYPE MOLDER DTL BUN (Blood Urea Nitrogen), S 6(L) 8 - 24 mg/dL 12/24/2024 10:04 AM ELECTROTYPE MOLDER DTL Creatinine 1.14 0.74 - 1.35 mg/dL 12/24/2024 10:04 AM ELECTROTYPE MOLDER DTL Estimated GFR (eGFR) 69 >=60 mL/min/BSA 12/24/2024 10:04 AM ELECTROTYPE MOLDER DTL Comment: Estimated GFR calculated using the 2020 CKD_EPI creatinine equation. Calcium, Total, S 7.7(L) 8.8 - 10.2 mg/dL 12/24/2024 10:04 AM ELECTROTYPE MOLDER DTL Glucose, S 85 70 - 140 mg/dL 12/24/2024 10:04 AM ELECTROTYPE MOLDER DTL Albumin, S 2.5(L) 3.5 - 5.0 g/dL 12/24/2024 10:04 AM ELECTROTYPE MOLDER DTL Phosphorus (Inorganic), S 2.5 2.5 - 4.5 mg/dL 12/24/2024 10:04 AM ELECTROTYPE MOLDER DTL Blood (Blood, Venous) 12/24/2024 8:41 AM ELECTROTYPE MOLDER 12/24/2024 9:32 AM ELECTROTYPE MOLDER us Justyn Torrez M.D. LAB BLOOD ADD-ON Final Result [facility] [address] [place] [address], [facility] [address] [place] [address] * Magnesium (12/24/2024 8:41 AM ELECTROTYPE MOLDER) Magnesium, S 1.7 1.7 - 2.3 mg/dL 12/24/2024 10:04 AM ELECTROTYPE MOLDER DTL Blood (Blood, Venous) 12/24/2024 8:41 AM ELECTROTYPE MOLDER 12/24/2024 9:32 AM ELECTROTYPE MOLDER us Justyn Torrez M.D. LAB BLOOD ADD-ON Final Result [facility] [address] [place] [address], [facility] [address] [place] [address] * (ABNORMAL) CBC with Differential, Blood (12/24/2024 8:41 AM ELECTROTYPE MOLDER) Hemoglobin 9.5(L) 13.2 - 16.6 g/dL 12/24/2024 9:38 AM ELECTROTYPE MOLDER DTL Hematocrit 29.0(L) 38.3 - 48.6 % 12/24/2024 9:38 AM ELECTROTYPE MOLDER DTL Erythrocytes 2.92(L) 4.35 - 5.65 x10(12)/L 12/24/2024 9:38 AM ELECTROTYPE MOLDER DTL MCV 99.3(H) 78.2 - 97.9 fL 12/24/2024 9:38 AM ELECTROTYPE MOLDER DTL RBC Distrib Width 14.0 11.8 - 14.5 % 12/24/2024 9:38 AM ELECTROTYPE MOLDER DTL Platelet Count 176 135 - 317 x10(9)/L 12/24/2024 9:38 AM ELECTROTYPE MOLDER DTL Leukocytes 6.1 3.4 - 9.6 x10(9)/L 12/24/2024 9:38 AM ELECTROTYPE MOLDER DTL Neutrophils 4.53 1.56 - 6.45 x10(9)/L 12/24/2024 9:38 AM ELECTROTYPE MOLDER DHPM Lymphocytes 0.68(L) 0.95 - 3.07 x10(9)/L 12/24/2024 9:38 AM ELECTROTYPE MOLDER DTL Monocytes 0.83(H) 0.26 - 0.81 x10(9)/L 12/24/2024 9:38 AM ELECTROTYPE MOLDER DTL Eosinophils <0.03 0.03 - 0.48 x10(9)/L 12/24/2024 9:38 AM ELECTROTYPE MOLDER DTL Basophils <0.03 0.01 - 0.08 x10(9)/L 12/24/2024 9:38 AM ELECTROTYPE MOLDER DTL Blood (Blood, Venous) 12/24/2024 8:41 AM ELECTROTYPE MOLDER 12/24/2024 9:17 AM ELECTROTYPE MOLDER us Justyn Torrez M.D. LAB BLOOD ADD-ON Final Result [facility] [employer] [facility] [address] [place] [address], [facility] DTL [facility] [address] [place] [address] [facility] [address] [place] [address] * (ABNORMAL) Renal Function Panel (12/23/2024 6:54 AM ELECTROTYPE MOLDER) Pathologist [facility] Potassium, S 4.2 3.6 - 5.2 mmol/L 12/23/2024 8:12 AM ELECTROTYPE MOLDER DTL Sodium, S 139 135 - 145 mmol/L 12/23/2024 8:12 AM ELECTROTYPE MOLDER DTL Chloride, S 115(H) 98 - 107 mmol/L 12/23/2024 8:12 AM ELECTROTYPE MOLDER DTL Bicarbonate, S 14(L) 22 - 29 mmol/L 12/23/2024 8:12 AM ELECTROTYPE MOLDER DTL Anion Gap 10 7 - 15 12/23/2024 8:12 AM ELECTROTYPE MOLDER DTL BUN (Blood Urea Nitrogen), S 8 8 - 24 mg/dL 12/23/2024 8:12 AM ELECTROTYPE MOLDER DTL Creatinine 1.18 0.74 - 1.35 mg/dL 12/23/2024 8:12 AM ELECTROTYPE MOLDER DTL Estimated GFR (eGFR) 66 >=60 mL/min/BSA 12/23/2024 8:12 AM ELECTROTYPE MOLDER DTL Comment: Estimated GFR calculated using the 2020 CKD_EPI creatinine equation. Calcium, Total, S 7.9(L) 8.8 - 10.2 mg/dL 12/23/2024 8:12 AM ELECTROTYPE MOLDER DTL Glucose, S 88 70 - 140 mg/dL 12/23/2024 8:12 AM ELECTROTYPE MOLDER DTL Albumin, S 2.7(L) 3.5 - 5.0 g/dL 12/23/2024 8:12 AM ELECTROTYPE MOLDER DTL Phosphorus (Inorganic), S 3.0 2.5 - 4.5 mg/dL 12/23/2024 8:12 AM ELECTROTYPE MOLDER DTL Blood (Blood, Venous) 12/23/2024 6:54 AM ELECTROTYPE MOLDER 12/23/2024 7:45 AM ELECTROTYPE MOLDER us Justyn Torrez M.D. LAB BLOOD ADD-ON Final Result [facility] [address] [place] [address], [facility] [address] [place] [address] * (ABNORMAL) Magnesium (12/23/2024 6:54 AM ELECTROTYPE MOLDER) [facility] Magnesium, S 1.5(L) 1.7 - 2.3 mg/dL 12/23/2024 8:12 AM ELECTROTYPE MOLDER DTL Blood (Blood, Venous) 12/23/2024 6:54 AM ELECTROTYPE MOLDER 12/23/2024 7:45 AM ELECTROTYPE MOLDER us Justyn Torrez M.D. LAB BLOOD ADD-ON Final Result [facility] [address] [place] [address], [facility] [address] [place] [address] * (ABNORMAL) CBC with Differential, Blood (12/23/2024 6:54 AM ELECTROTYPE MOLDER) [facility] Hemoglobin 10.1(L) 13.2 - 16.6 g/dL 12/23/2024 7:42 AM ELECTROTYPE MOLDER DTL Hematocrit 32.4(L) 38.3 - 48.6 % 12/23/2024 7:42 AM ELECTROTYPE MOLDER DTL Erythrocytes 3.18(L) 4.35 - 5.65 x10(12)/L 12/23/2024 7:42 AM ELECTROTYPE MOLDER DTL MCV 101.9(H) 78.2 - 97.9 fL 12/23/2024 7:42 AM ELECTROTYPE MOLDER DTL RBC Distrib Width 14.3 11.8 - 14.5 % 12/23/2024 7:42 AM ELECTROTYPE MOLDER DTL Platelet Count 220 135 - 317 x10(9)/L 12/23/2024 7:42 AM ELECTROTYPE MOLDER DTL Leukocytes 5.6 3.4 - 9.6 x10(9)/L 12/23/2024 7:42 AM ELECTROTYPE MOLDER DTL Neutrophils 3.66 1.56 - 6.45 x10(9)/L 12/23/2024 7:42 AM ELECTROTYPE MOLDER DHPM Lymphocytes 0.87(L) 0.95 - 3.07 x10(9)/L 12/23/2024 7:42 AM ELECTROTYPE MOLDER DTL Monocytes 1.04(H) 0.26 - 0.81 x10(9)/L 12/23/2024 7:42 AM ELECTROTYPE MOLDER DTL Eosinophils <0.03 0.03 - 0.48 x10(9)/L 12/23/2024 7:42 AM ELECTROTYPE MOLDER DTL Basophils <0.03 0.01 - 0.08 x10(9)/L 12/23/2024 7:42 AM ELECTROTYPE MOLDER DTL Blood (Blood, Venous) 12/23/2024 6:54 AM ELECTROTYPE MOLDER 12/23/2024 7:33 AM ELECTROTYPE MOLDER us Justyn Torrez M.D. LAB BLOOD ADD-ON Final Result [facility] [address] [place] [address], [facility] DTL [facility] [address] [place] [address] [facility] [address] [place] [address] * (ABNORMAL) Renal Function Panel (12/22/2024 10:45 AM ELECTROTYPE MOLDER) Pathologist [facility] Potassium, S 4.1 3.6 - 5.2 mmol/L 12/22/2024 12:07 PM ELECTROTYPE MOLDER DTL Sodium, S 139 135 - 145 mmol/L 12/22/2024 12:07 PM ELECTROTYPE MOLDER DTL Chloride, S 112(H) 98 - 107 mmol/L 12/22/2024 12:07 PM ELECTROTYPE MOLDER DTL Bicarbonate, S 19(L) 22 - 29 mmol/L 12/22/2024 12:07 PM ELECTROTYPE MOLDER DTL Anion Gap 8 7 - 15 12/22/2024 12:07 PM ELECTROTYPE MOLDER DTL BUN (Blood Urea Nitrogen), S 9 8 - 24 mg/dL 12/22/2024 12:07 PM [employer] DTL Creatinine 1.15 0.74 - 1.35 mg/dL 12/22/2024 12:07 PM [employer] DTL Estimated GFR (eGFR) 68 >=60 mL/min/BSA 12/22/2024 12:07 PM [employer] DTL Comment: Estimated GFR calculated using the 2020 CKD_EPI creatinine equation. Calcium, Total, S 7.7(L) 8.8 - 10.2 mg/dL 12/22/2024 12:07 PM [employer] DTL Glucose, S 95 70 - 140 mg/dL 12/22/2024 12:07 PM [employer] DTL Albumin, S 2.8(L) 3.5 - 5.0 g/dL 12/22/2024 12:07 PM [employer] DTL Phosphorus (Inorganic), S 2.7 2.5 - 4.5 mg/dL 12/22/2024 12:07 PM [employer] DTL Blood (Blood, Venous) 12/22/2024 10:45 AM [employer] 12/22/2024 11:42 AM [employer] us Justyn Torrez M.D. LAB BLOOD ADD-ON Final Result Performing Organization Address City/[facility]/ZIP Co de Phone Number [facility] [address] [place] [address], [place] [address] * Magnesium (12/22/2024 10:45 AM E[employer] M[employer]) Magnesium, S 1.7 1.7 - 2.3 mg/dL 12/22/2024 12:07 PM [employer] DTL Blood (Blood, Venous) 12/22/2024 10:45 AM [employer] 12/22/2024 11:42 AM [employer] us Justyn Torrez M.D. LAB BLOOD ADD-ON Final Result Performing Organization Address [facility]/ZIP Co de Phone Number [facility] [address] [place] [address], [place] [address] * (ABNORMAL) CBC with Differential, Blood (12/22/2024 10:45 AM [employer]) Hemoglobin 10.3(L) 13.2 - 16.6 g/dL 12/22/2024 12:07 PM [employer] DTL Hematocrit 30.6(L) 38.3 - 48.6 % 12/22/2024 12:07 PM [employer] DTL Erythrocytes 3.08(L) 4.35 - 5.65 x10(12)/L 12/22/2024 12:07 PM [employer] DTL MCV 99.4(H) 78.2 - 97.9 fL 12/22/2024 12:07 PM [employer] DTL RBC Distrib Width 14.6(H) 11.8 - 14.5 % 12/22/2024 12:07 PM [employer] DTL Platelet Count 213 135 - 317 x10(9)/L 12/22/2024 12:07 PM [employer] DTL Leukocytes 7.3 3.4 - 9.6 x10(9)/L 12/22/2024 12:07 PM [employer] DTL Neutrophils 4.89 1.56 - 6.45 x10(9)/L 12/22/2024 12:07 PM [employer] DHPM Lymphocytes 1.00 0.95 - 3.07 x10(9)/L 12/22/2024 12:07 PM [employer] DTL Monocytes 1.35(H) 0.26 - 0.81 x10(9)/L 12/22/2024 12:07 PM [employer] DTL Eosinophils <0.03 0.03 - 0.48 x10(9)/L 12/22/2024 12:07 PM [employer] DTL Basophils 0.04 0.01 - 0.08 x10(9)/L 12/22/2024 12:07 PM [employer] DTL Blood (Blood, Venous) 12/22/2024 10:45 AM [employer] 12/22/2024 11:26 AM E[employer] us Justyn Torrez M.D. LAB BLOOD ADD-ON Final Result [facility] [address] [place] [address], [facility] DTL [facility] [address] [place] [address] [facility] [address] [place] [address] * GI Pathogen Panel, PCR, Feces (12/22/2024 12:48 AM E[employer] M[employer]DER) Specimen Source STOOL 6:23 AM [employer] DTL Campylobacter species Negative Negative 12/22/2024 6:23 AM [employer] DTL C. difficile toxin Negative Negative 2024 6:23 AM [employer] DTL Plesiomonas shigelloides Negative Negative 12/22/2024 6:23 AM [employer] DTL Salmonella species Negative Negative 2024 6:23 AM [employer] DTL Vibrio species Negative Negative 12/22/2024 6:23 AM [employer] DTL Vibrio cholerae Negative Negative 6:23 AM [employer] DTL Yersinia species Negative Negative 12/22/19 6:23 AM [employer] DTL Enteroaggregative E. coli (EAEC) Negative Negative 12/22/2024 6:23 AM [employer] DTL Enteropathogenic E. coli (EPEC) Negative Negative 12/22/2024 6:23 AM ELECTROTYPE MOLDER DTL Enterotoxigenic E. coli (ETEC) Negative Negative 12/22/2024 6:23 AM ELECTROTYPE MOLDER DTL Shiga toxin producing E. coli Negative Negative 12/22/2024 6:23 AM ELECTROTYPE MOLDER DTL Shigella/Enteroinvas mary grace E. coli Negative Negative 12/22/2024 6:23 AM ELECTROTYPE MOLDER DTL Cryptosporidium species Negative Negative 12/22/2024 6:23 AM ELECTROTYPE MOLDER DTL Cyclospora cayetanensis Negative Negative 12/22/2024 6:23 AM ELECTROTYPE MOLDER DTL Entamoeba histolytica Negative Negative 12/22/2024 6:23 AM ELECTROTYPE MOLDER DTL Giardia Negative Negative 12/22/2024 6:23 AM ELECTROTYPE MOLDER DTL Adenovirus F40/41 Negative Negative 025 6:23 AM ELECTROTYPE MOLDER DTL Astrovirus Negative Negative 12/22/2024 6:23 AM ELECTROTYPE MOLDER DTL Norovirus GI/GII Negative Negative 12/22/19 25 6:23 AM ELECTROTYPE MOLDER DTL Rotavirus Ag, F Negative Negative 5 6:23 AM ELECTROTYPE MOLDER DTL Sapovirus Negative Negative 12/22/2024 6:23 AM ELECTROTYPE MOLDER DTL Comment: ----ADDITIONAL INFORMATION---- This assay is performed using the FDA-cleared Cutting Edge WheelsArray GI Panel ([employer] Stool (Stool) 12/22/2024 12: 48 AM ELECTROTYPE MOLDER 12/22/2024 3:25 AM ELECTROTYPE MOLDER us Justyn Torrez M.D. LAB MICROBIOLOGY - GENE RAL ORDERABLES Final Result Performing Organization Address City/[facility]/ZIP Co de Phone Number [facility] [address] [place] [address], [facility] [address] [place] [address] * DX Abdomen Portable Anterior Posterior 1 View (12/21/2024 11:59 PM ELECTROTYPE MOLDER) Anatomical Region Laterality Modality Abdomen, Abdominal RST LOS, Abdominal ARZ LOS, Abdominal FLA LOS N/A Digital Radiography Impressions 12/22/2024 8:40 AM ELECTROTYPE MOLDER Nonobstructive bowel gas pattern. Anastomotic sutures right hemiabdomen. Thoracolumbar levocurvature. Multilevel spondylotic changes. Demineralization. Narrative 12/22/2024 8:40 AM ELECTROTYPE MOLDER EXAM: DX ABDOMEN PORTABLE ANTERIOR POSTERIOR 1 VIEW Procedure Note Walt Thompson M.D. - 12/22/2024 EXAM: DX ABDOMEN PORTABLE ANTERIOR POSTERIOR 1 VIEW IMPRESSION: Nonobstructive bowel gas pattern. Anastomotic sutures right hemiabdomen.Thoracolumbar levocurvature. Multilevel spondylotic changes.Demineralization. us Justyn Torrez M.D. IMG DIAGNOSTIC IMAGING PROCEDURES Final Result * Bacteria / Andrea Culture, Blood #1 (12/21/2024 9:12 PM ELECTROTYPE MOLDER) Bacteria/Emily da Culture, Blood No growth after 5 days of incubation. 12/26/2024 10:02 PM ELECTROTYPE MOLDER DTL Blood (Blood, Peripheral Draw) 12/21/2024 9:12 PM ELECTROTYPE MOLDER 12/21/2024 9:56 PM ELECTROTYPE MOLDER Comment:Specimen Source Site : Blood us Pina Dorado M.D., M.P.H. LAB MICROBIOLOGY - GENERAL ORDERABLES Final Result Performing Organization Address City/[facility]/ZIP Co de Phone Number [facility] [address] [place] [address], [facility] [address] [place] [address] * Bacteria / Andrea Culture, Blood #2 (12/21/2024 9:00 PM ELECTROTYPE MOLDER) Pathologist [facility] Bacteria/Emily da Culture, Blood No growth after 5 days of incubation. 12/26/2024 10:02 PM ELECTROTYPE MOLDER DTL Blood (Blood, Portacath) 12/21/2024 9:00 PM ELECTROTYPE MOLDER 12/21/2024 9:56 PM ELECTROTYPE MOLDER Comment:Specimen Source Site : portacath us Justyn Torrez M.D. LAB MICROBIOLOGY - GENE RAL ORDERABLES Final Result [facility] [address] [place] [address], [facility] [address] [place] [address] * (ABNORMAL) Hepatic Function Panel (12/21/2024 9:00 PM ELECTROTYPE MOLDER) Pathologist [facility] Bilirubin, Total, S 0.2 0.0 - 1.2 mg/dL 12/21/2024 10:33 PM ELECTROTYPE MOLDER DTL Bilirubin, Direct, S <0.2 0.0 - 0.3 mg/dL 12/21/2024 10:33 PM ELECTROTYPE MOLDER DTL Aspartate Aminotransferase (AST), S 23 8 - 48 U/L 12/21/2024 10:33 PM ELECTROTYPE MOLDER DTL Alanine Aminotransferase (ALT), S 30 7 - 55 U/L 12/21/2024 10:33 PM ELECTROTYPE MOLDER DTL Alkaline Phosphatase, S 45 40 - 129 U/L 12/21/2024 10:33 PM ELECTROTYPE MOLDER DTL Albumin, S 3.0(L) 3.5 - 5.0 g/dL 12/21/2024 10:33 PM ELECTROTYPE MOLDER DTL Protein, Total, S 4.6(L) 6.3 - 7.9 g/dL 12/21/2024 10:33 PM ELECTROTYPE MOLDER DTL Blood (Blood, Venous) 12/21/2024 9:00 PM ELECTROTYPE MOLDER 12/21/2024 10:08 PM ELECTROTYPE MOLDER us Pina Dorado M.D., M.P.H. LAB BLOOD ADD-ON Fi nal Result [facility] [address] [place] [address], [facility] [address] [place] [address] * (ABNORMAL) Basic Metabolic Panel (12/21/2024 9:00 PM ELECTROTYPE MOLDER) [facility] Potassium, S 5.0 3.6 - 5.2 mmol/L 12/21/2024 10:33 PM ELECTROTYPE MOLDER DTL Sodium, S 137 135 - 145 mmol/L 12/21/2024 10:33 PM ELECTROTYPE MOLDER DTL Chloride, S 109(H) 98 - 107 mmol/L 12/21/2024 10:33 PM ELECTROTYPE MOLDER DTL Bicarbonate, S 17(L) 22 - 29 mmol/L 12/21/2024 10:33 PM ELECTROTYPE MOLDER DTL Anion Gap 11 7 - 15 12/21/2024 10:33 PM ELECTROTYPE MOLDER DTL BUN (Blood Urea Nitrogen), S 9 8 - 24 mg/dL 12/21/2024 10:33 PM ELECTROTYPE MOLDER DTL Creatinine 1.14 0.74 - 1.35 mg/dL 12/21/2024 10:33 PM ELECTROTYPE MOLDER DTL Estimated GFR (eGFR) 69 >=60 mL/min/BSA 12/21/2024 10:33 PM ELECTROTYPE MOLDER DTL Comment: Estimated GFR calculated using the 2020 CKD_EPI creatinine equation. Calcium, Total, S 7.3(L) 8.8 - 10.2 mg/dL 12/21/2024 10:33 PM ELECTROTYPE MOLDER DTL Glucose, S 103 70 - 140 mg/dL 12/21/2024 10:33 PM ELECTROTYPE MOLDER DTL Blood (Blood, Venous) 12/21/2024 9:00 PM ELECTROTYPE MOLDER 12/21/2024 10:08 PM ELECTROTYPE MOLDER us Pina Dorado M.D., M.P.H. LAB BLOOD ADD-ON Fi nal Result [facility] [address] [place] [address], [facility] [address] [place] [address] * Lactate for Sepsis with Reflex (12/21/2024 8:59 PM ELECTROTYPE MOLDER) [facility] Lactate, P 1.0 0.5 - 2.2 mmol/L 12/21/2024 9:40 PM ELECTROTYPE MOLDER STMA Blood (Blood, Venous) 12/21/2024 8:59 PM ELECTROTYPE MOLDER 12/21/2024 9:25 PM ELECTROTYPE MOLDER Pina Dorado M.D., M.P.H. LAB BLOOD NON ADD-O N Final Result [facility] [address] [place] [address], [facility] [address] [place] [address] * (ABNORMAL) CBC with Differential, Blood (12/21/2024 8:59 PM ELECTROTYPE MOLDER) [facility] Hemoglobin 10.5(L) 13.2 - 16.6 g/dL 12/21/2024 10:01 PM ELECTROTYPE MOLDER DTL Hematocrit 30.9(L) 38.3 - 48.6 % 12/21/2024 10:01 PM ELECTROTYPE MOLDER DTL Erythrocytes 3.17(L) 4.35 - 5.65 x10(12)/L 12/21/2024 10:01 PM ELECTROTYPE MOLDER DTL MCV 97.5 78.2 - 97.9 fL 12/21/2024 10:01 PM ELECTROTYPE MOLDER DTL RBC Distrib Width 14.4 11.8 - 14.5 % 12/21/2024 10:01 PM ELECTROTYPE MOLDER DTL Platelet Count 198 135 - 317 x10(9)/L 12/21/2024 10:01 PM ELECTROTYPE MOLDER DTL Leukocytes 6.0 3.4 - 9.6 x10(9)/L 12/21/2024 10:01 PM ELECTROTYPE MOLDER DTL Neutrophils 4.95 1.56 - 6.45 x10(9)/L 12/21/2024 10:01 PM ELECTROTYPE MOLDER DHPM Lymphocytes 0.58(L) 0.95 - 3.07 x10(9)/L 12/21/2024 10:01 PM ELECTROTYPE MOLDER DTL Monocytes 0.45 0.26 - 0.81 x10(9)/L 12/21/2024 10:01 PM ELECTROTYPE MOLDER DTL Eosinophils <0.03 0.03 - 0.48 x10(9)/L 12/21/2024 10:01 PM ELECTROTYPE MOLDER DTL Basophils 0.03 0.01 - 0.08 x10(9)/L 12/21/2024 10:01 PM ELECTROTYPE MOLDER DTL Blood (Blood, Venous) 12/21/2024 8:59 PM ELECTROTYPE MOLDER 12/21/2024 9:52 PM ELECTROTYPE MOLDER us Pina Dorado M.D., M.P.H. LAB BLOOD ADD-ON Fi nal Result Performing Organization Address City/[facility]/[place] Number [place] [address], [place] [address] [facility] [address] [place] [address] * Thyroid Function [place] (12/21/2024 8:53 PM ELECTROTYPE MOLDER) [facility] TSH, Sensitive 1.4 0.3 - 4.2 mIU/L 12/21/2024 11:59 PM ELECTROTYPE MOLDER DTL Blood (Blood, Venous) 12/21/2024 8:53 PM ELECTROTYPE MOLDER 12/21/2024 11:27 PM ELECTROTYPE MOLDER us Justyn Torrez M.D. 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) Candidiasis documented in this encounter Admitting Diagnoses Diagnosis Diarrhea documented in this encounter Administered Medications Inactive Administered Medications - up to 3 most recent administrations Medication Order MAR Action Action Date Dose Rate Site acetaminophen tablet 1,000 mg (TylenoL) 1,000 mg, oral, Every 6 hours PRN, mild pain or score 1-3 of 10, headaches, fever, moderate pain or score 4-6 of 10, severe pain or score 7-10 of 10, Starting on Sat12/21/24 at 203, Not to exceed 4 grams of acetaminophen in 24 hours all sources Given 12/27/2024 5:49 AM ELECTROTYPE MOLDER 500 mg aspirin chewable tablet 81 mg 81 mg, oral, 2 times weekly (Once per day on Saturday), First dose (after last modification) on Sat12/22/24 at 0900 Given 12/29/2024 9:31 AM ELECTROTYPE MOLDER 81 mg Given 12/24/2024 8:53 AM ELECTROTYPE MOLDER 81 mg Given 12/22/2024 8:42 AM ELECTROTYPE MOLDER 81 mg atorvastatin tablet 40 mg (Lipitor) 40 mg, oral, Daily at bedtime, First dose on Sat12/21/24 at 2100 Given 12/28/2024 8:13 PM ELECTROTYPE MOLDER 40 mg Given 12/27/2024 8:55 PM ELECTROTYPE MOLDER 40 mg Given 12/26/2024 8:11 PM ELECTROTYPE MOLDER 40 mg budesonide 24 hr capsule 9 mg (Entocort EC) 9 mg, oral, Daily, First dose (after last reorder) on Sat12/22/24 at 0900, See tube feeding guidelines for tube feeding administration instructions., On hold since Sat12/26/2024 at 1213 until manually unheld Given 12/26/2024 8:38 AM ELECTROTYPE MOLDER 9 mg Given 12/25/2024 9:15 AM ELECTROTYPE MOLDER 9 mg Given 12/24/2024 8:36 AM ELECTROTYPE MOLDER 9 mg cholecalciferol (vitamin D3) tablet 50 mcg 50 mcg, oral, Daily, First dose on Sat12/22/24 at 0900, cholecalciferol (vitamin D3) orderable was interchanged for cholecalciferol (vitamin D3) tablet/capsule Given 12/29/2024 9:[address] 50 mcg Given 12/28/2024 8:43 AM ELECTROTYPE MOLDER 50 mcg Given 12/27/2024 8:52 AM ELECTROTYPE MOLDER 50 mcg enoxaparin injection 40 mg (Lovenox) 40 mg, subcutaneous, Daily, First dose on Sat12/22/24 at 0900 Given 12/29/2024 9:32 AM ELECTROTYPE MOLDER 40 mg Right Lower Abdomen Given 12/28/2024 8:42 AM ELECTROTYPE MOLDER 40 mg Le ft Upper Arm (Back) Given 12/27/2024 8:52 AM ELECTROTYPE MOLDER 40 mg Le ft Lower Abdomen fish oil capsule 1,000 mg 1,000 mg, oral, Daily, First dose on Sat12/22/24 at 0900, fish oil (OTC) oral was interchanged for fish Oil (prescription/OTC) See tube feeding guidelines for tube feeding administration instructions. Given 12/29/2024 9:32 AM ELECTROTYPE MOLDER 1,000 mg Given 12/28/2024 8:43 AM ELECTROTYPE MOLDER 1,000 mg Given 12/27/2024 8:52 AM ELECTROTYPE MOLDER 1,000 mg fluconazole tablet 100 mg (Diflucan) 100 mg, oral, Daily, First dose (after last modification) on Sat12/28/24 at 0900, For 12 doses, Drug Monitoring Program: Pharmacist to adjust medication dosing based on indication and drug clearance factors., Indications: esophageal candidiasisIndications:esophageal candidiasis Given 12/28/2024 8:43 AM ELECTROTYPE MOLDER 100 mg fluconazole tablet 100 mg (Diflucan) 100 mg, oral, Once, On Sat12/28/24 at 0945, For 1 dose, Drug Monitoring Program: Pharmacist to adjust medication dosing based on indication and drug clearance factors., Indications: esophgeal candidiasisIndications:esophgeal candidiasis Given 12/28/2024 9:47 AM ELECTROTYPE MOLDER 100 mg fluconazole tablet 200 mg (Diflucan) 200 mg, oral, Daily, First dose (after last modification) on Sat12/26/24 at 1315, For 14 doses, Drug Monitoring Program: Pharmacist to adjust medication dosing based on indication and drug clearance factors., Indications: esophageal candidiasisIndications:esophageal candidiasis Given 12/27/2024 8:52 AM ELECTROTYPE MOLDER 200 mg Given 12/26/2024 3:48 PM ELECTROTYPE MOLDER 200 mg fluconazole tablet 200 mg (Diflucan) 200 mg, oral, Daily, First dose (after last modification) on Sat12/29/24 at 0900, For 11 doses, Drug Monitoring Program: Pharmacist to adjust medication dosing based on indication and drug clearance factors., Indications: esophageal candidiasisIndications:esophageal candidiasis Given 12/29/2024 9:32 AM ELECTROTYPE MOLDER 200 mg fluconazole tablet 400 mg (Diflucan) 400 mg, oral, Daily, First dose on Sat12/25/24 at 0900, For 1 dose, Drug Monitoring Program: Pharmacist to adjust medication dosing based on indication and drug clearance factors., Indications: esophageal candidiasisIndications:esophageal candidiasis Given 12/25/2024 9:15 AM ELECTROTYPE MOLDER 400 mg folic acid tablet 1,000 mcg 1,000 mcg, oral, Daily, First dose on Sat12/22/24 at 0900 Given 12/29/2024 9:32 AM ELECTROTYPE MOLDER 1,000 mcg Given 12/28/2024 8:43 AM ELECTROTYPE MOLDER 1,000 mcg Given 12/27/2024 8:52 AM ELECTROTYPE MOLDER 1,000 mcg furosemide injection 40 mg (Lasix) 40 mg, intravenous, Once, On Sat12/27/24 at 0600, For 1 dose, Adults: Doses less than 120 mg: IV push over 20 mg/minute. Doses 120 mg or greater: IVPB at 4 mg/minute. Peds/Neonates: Doses less than 120 mg over 0.5 mg/kg/minute. Doses 120 mg or greater: IVPB at 4 mg/minute. Given 12/27/2024 5:51 AM ELECTROTYPE MOLDER 40 mg furosemide injection 40 mg (Lasix) 40 mg, intravenous, Once, On Sat12/28/24 at 0815, For 1 dose, Adults: Doses less than 120 mg: IV push over 20 mg/minute. Doses 120 mg or greater: IVPB at 4 mg/minute. Peds/Neonates: Doses less than 120 mg over 0.5 mg/kg/minute. Doses 120 mg or greater: IVPB at 4 mg/minute. Given 12/28/2024 8:42 AM ELECTROTYPE MOLDER 40 mg heparin flush 500-1,000 Units 500-1,000 Units, intra-catheter, During hospitalization, line care, Prior to discharge, Starting on Sat12/25/24 at 1456, For 1 dose, Implanted Vascular Access Device (IVAD) Venous Non-Valved: flush 5 mL (500 units) per port/lumen following saline flush prior to discharge. Given 12/29/2024 5:18 PM ELECTROTYPE MOLDER 500 Units Port Lactated Ringer's 100 mL/hr, intravenous, Continuous, Starting on Sat12/21/24 at 2100, For 24 hours New Bag 12/21/2024 9:52 PM ELECTROTYPE MOLDER 100 mL/hr 10 0 mL/hr Lactated Ringer's 100 mL/hr, intravenous, Continuous, Starting on Sat12/22/24 at 1745, For 24 hours New Bag 12/23/2024 2:00 PM ELECTROTYPE MOLDER 100 mL/hr 10 0 mL/hr Rate/Dose Verify 12/23/2024 12:00 PM ELECTROTYPE MOLDER 100 mL/hr 100 mL /hr New Bag 12/23/2024 4:47 AM ELECTROTYPE MOLDER 100 mL/hr 100 mL/hr Lactated Ringer's 75 mL/hr, intravenous, Continuous, Starting on Sat12/24/24 at 0800, For 12 hours New Bag 12/24/2024 8:41 AM ELECTROTYPE MOLDER 75 mL/hr 75 mL/hr loperamide capsule 4 mg (Imodium A-D) 4 mg, oral, Once, On Sat12/25/24 at 0745, For 1 dose Given 12/25/2024 8:03 AM ELECTROTYPE MOLDER 4 mg magnesium sulfate in D5W IVPB 1 g 1 g, intravenous, at 100 mL/hr, Administer over 60 Minutes, Once, On Sat12/24/24 at 1730, For 1 dose, Over 1 hours. New Bag 12/24/2024 6:09 PM ELECTROTYPE MOLDER 1 g 100 mL/hr magnesium sulfate in water IVPB 2 g 2 g, intravenous, at 25 mL/hr, Administer over 120 Minutes, Once, On Sat12/23/24 at 1845, For 1 dose, Over 2 hours. New Bag 12/23/2024 9:35 PM ELECTROTYPE MOLDER 2 g 25 mL/hr magnesium sulfate in water IVPB 2 g 2 g, intravenous, at 25 mL/hr, Administer over 120 Minutes, Once, On Sat12/25/24 at 1130, For 1 dose, Over 2 hours. New Bag 12/25/2024 11:33 AM ELECTROTYPE MOLDER 2 g 25 mL/hr magnesium sulfate in water IVPB 2 g 2 g, intravenous, at 25 mL/hr, Administer over 120 Minutes, Once, On Sat12/27/24 at 1115, For 1 dose, Over 2 hours. New Bag 12/27/2024 11:30 AM ELECTROTYPE MOLDER 2 g 25 mL/hr methylPREDNISolone sod succinate (PF) injection 250 mg (SOLU-MedroL) 250 mg, intravenous, Daily, First dose on Sat12/26/24 at 0900, Activate vial to a final concentration of 62.5 mg/mL Given 12/28/2024 8:42 AM ELECTROTYPE MOLDER 250 mg Given 12/27/2024 8:52 AM ELECTROTYPE MOLDER 250 mg Given 12/26/2024 8:39 AM ELECTROTYPE MOLDER 250 mg metoprolol succinate 24 hr tablet 25 mg (Toprol XL) 25 mg, oral, Daily, First dose on Sat12/22/24 at 0900, Do NOT crush or chew. Tablet may be split on score if needed. Given 12/29/2024 9:42 AM ELECTROTYPE MOLDER 25 mg Given 12/28/2024 8:43 AM ELECTROTYPE MOLDER 25 mg Given 12/27/2024 8:52 AM ELECTROTYPE MOLDER 25 mg [id number]-minerals 400 mcg (folic acid) tablet 1 tablet 1 tablet, oral, Daily, First dose on Sat12/22/24 at 0900 Given 12/29/2024 9:32 AM ELECTROTYPE MOLDER 1 tablet Given 12/28/2024 8:43 AM ELECTROTYPE MOLDER 1 tablet Given 12/27/2024 8:52 AM ELECTROTYPE MOLDER 1 tablet ondansetron (PF) injection 4 mg (Zofran) 4 mg, intravenous, Every 6 hours PRN, nausea, vomiting, If unable to tolerate PO, Starting on Sat12/22/24 at 0102 ondansetron ODT disintegrating tablet 4 mg (Zofran-ODT) 4 mg, oral, Every 6 hours PRN, nausea, vomiting, Starting on Sat12/22/24 at 0102, When splitting ODT at bedside, handle with gloves and a pill splitter to prevent moisture contact. pantoprazole DR tablet 40 mg (Protonix) 40 mg, oral, Daily before morning meal, First dose on Sat12/22/24 at 0700, pantoprazole 40 mg oral daily was interchanged for omeprazole 20 or 40 mg oral daily Swallow whole. Do NOT crush, chew, or split tablet. Given 12/29/2024 5:19 AM ELECTROTYPE MOLDER 40 mg Given 12/28/2024 5:53 AM ELECTROTYPE MOLDER 40 mg Given 12/27/2024 5:50 AM ELECTROTYPE MOLDER 40 mg polycarbophil tablet 625 mg (FiberCon) 625 mg, oral, Daily, First dose on Sat12/22/24 at 0900, A full glass (240 mL or 8 fl oz) of liquid should be taken with each dose. Given 12/29/2024 9:32 AM ELECTROTYPE MOLDER 625 m g Given 12/28/2024 8:43 AM ELECTROTYPE MOLDER 625 mg Given 12/27/2024 8:52 AM ELECTROTYPE MOLDER 625 mg polyethylene glycol-electrolytes solution 4,000 mL (Golytely) 4,000 mL, oral, Once, On 12/23/24 at 1700, For 1 dose, 2/3 overnight starting at 1700 and 1/3 in early AM around 0500 Add lukewarm water (to facilitate dissolution) to bring the volume of solution to 4 liters (for all doses). The solution is clear and colorless when reconstituted to a final volume of 4 liters. After capping the container, shake vigorously several times to ensure that the ingredients are dissolved. When reconstituted use within 48 hours. Given 12/23/2024 4:48 PM ELECTROTYPE MOLDER 4,000 mL potassium chloride ER tablet 40 mEq 40 mEq, oral, Once, On Doretha 12/24/24 at 1045, For 1 dose, For K 3-3.4 mEq/L - give total of 40 mEq Swallow whole. Do NOT crush, chew, or split tablet., Monitor the following for replacement: Potassium, Replace Potassium per: Standard Schedule Given 12/24/2024 4:21 PM ELECTROTYPE MOLDER 40 mEq potassium chloride ER tablet 40 mEq 40 mEq, oral, Once, On 12/27/24 at 1115, For 1 dose, For K 3-3.4 mEq/L - give total of 40 mEq Swallow whole. Do NOT crush, chew, or split tablet., Monitor the following for replacement: Potassium, Replace Potassium per: Standard Schedule Given 12/27/2024 11:30 AM ELECTROTYPE MOLDER 40 mEq potassium chloride ER tablet 40 mEq 40 mEq, oral, Once, On 12/28/24 at 0715, For 1 dose, For K 3-3.4 mEq/L - give total of 40 mEq Swallow whole. Do NOT crush, chew, or split tablet., Monitor the following for replacement: Potassium, Replace Potassium per: Standard Schedule Given 12/28/2024 8:42 AM ELECTROTYPE MOLDER 40 mEq potassium chloride ER tablet 40 mEq 40 mEq, oral, Once, On 12/28/24 at 1745, For 1 dose, For K 3-3.4 mEq/L - give total of 40 mEq Swallow whole. Do NOT crush, chew, or split tablet., Monitor the following for replacement: Potassium, Replace Potassium per: Standard Schedule Given 12/28/2024 5:55 PM ELECTROTYPE MOLDER 40 mEq cipkovbth-moresb-iaxedocjc 280-160-250 mg per packet 1 packet (Phos-NaK) 1 packet, oral, Every 4 hours while awake, First dose on Sat12/25/24 at 1130, For 4 doses, Mix each packet in 75 mL water or juice then administer ordered dose. 250 mg of phosphate is equivalent to 8 mmol of phosphate., Monitor the following for replacement: Phosphorus Given 12/25/2024 8:52 PM ELECTROTYPE MOLDER 1 packet Given 12/25/2024 7:31 PM ELECTROTYPE MOLDER 1 packet Given 12/25/2024 4:09 PM ELECTROTYPE MOLDER 1 packet predniSONE tablet 120 mg (Deltasone) 120 mg, oral, Daily, First dose on Sat12/29/24 at 0900 Given 12/29/2024 9:31 AM ELECTROTYPE MOLDER 120 mg sodium bicarbonate 75 mEq in D5W 1,075 mL infusion 100 mL/hr, intravenous, Continuous, Starting on Sat12/27/24 at 1115 New Bag 12/27/2024 2:06 PM ELECTROTYPE MOLDER 100 mL/hr 100 mL/hr sodium chloride 0.9 % injection 3 mL 3 mL, intravenous, Every 12 hours scheduled, First dose on Sat12/21/24 at 2100, Peripheral Intravenous Catheter and Rapid Infusion Catheter, when no infusion to maintain patency Given 12/29/2024 9:42 AM ELECTROTYPE MOLDER 3 mL Given 12/28/2024 8:37 PM ELECTROTYPE MOLDER 3 mL Given 12/28/2024 8:43 AM ELECTROTYPE MOLDER 3 mL sodium phosphate 15 mmol in NaCl 0.9% IVPB 15 mmol, intravenous, at 47.7 mL/hr, Administer over 2.2 Hours, Once, On Sat12/29/24 at 1400, For 1 dose, Administer at 6.8 mmoL phosphate/hr. Max rate of 15 mmoL phosphate/hr. New Bag 12/29/2024 2:45 PM ELECTROTYPE MOLDER 15 mmol 47.7 m L/hr sulfamethoxazole-trimethoprim 400-80 mg per tablet 1 tablet (Bactrim) 1 tablet, oral, Daily, First dose on Sat12/29/24 at 0900, Drug Monitoring Program: Pharmacist to adjust medication dosing based on indication and drug clearance factors., Indications: Prophylaxis, medicalIndications:Prophylaxis, medical Given 12/29/2024 9:31 AM ELECTROTYPE MOLDER 1 tablet tamsulosin 24 hr capsule 0.4 mg (Flomax) 0.4 mg, oral, Daily, First dose on Sat12/22/24 at 0900, Swallow whole. Do NOT crush, chew or open capsule. Given 12/29/2024 9:32 AM ELECTROTYPE MOLDER 0.4 mg Given 12/28/2024 8:43 AM ELECTROTYPE MOLDER 0.4 mg Given 12/27/2024 8:52 AM ELECTROTYPE MOLDER 0.4 mg thiamine tablet 100 mg (Vitamin B-1) 100 mg, oral, Daily, First dose on Sat12/22/24 at 0900 Given 12/29/2024 9:32 AM ELECTROTYPE MOLDER 100 mg Given 12/28/2024 8:43 AM ELECTROTYPE MOLDER 100 mg Given 12/27/2024 8:52 AM ELECTROTYPE MOLDER 100 mg documented in this encounter Active and Recently Administered Medications Times are shown in ELECTROTYPE MOLDER. Scheduled Medication Order 12/27/2024 12/28/2024 12/29/2024 aspirin chewable tablet 81 mg 81 mg, oral, 2 times weekly (Once per day on Saturday), First dose (after last modification) on Sat12/22/24 at 0900 0931 (Given - Provider: Diaz Norris R.N.) atorvastatin tablet 40 mg (Lipitor) 40 mg, oral, Daily at bedtime, First dose on Sat12/21/24 at 2100 2054 (Given - Provider: Maritza Mancilla RFeliciaN.) 2012 (Given - Provider: Nikolai Hawkins RFeliciaNFelicia) budesonide 24 hr capsule 9 mg (Entocort EC) 9 mg, oral, Daily, First dose (after last reorder) on Sat12/22/24 at 0900, See tube feeding guidelines for tube feeding administration instructions., On hold since Sat12/26/2024 at 1213 until manually unheld 0900 (Not Given - Provider: Edison Muro R.N. - Reason: See Provider Order) 0900 (Not Given - Provider: Diaz Norris R.N. - Reason: See Provider Order) 0900 (Not Given - Provider: Diaz Norris R.N. - Reason: See Provider Order)1951 (Unheld by provider - Provider: Discharge Provider, Automatic) cholecalciferol (vitamin D3) tablet 50 mcg 50 mcg, oral, Daily, First dose on Sat12/22/24 at 0900, cholecalciferol (vitamin D3) orderable was interchanged for cholecalciferol (vitamin D3) tablet/capsule 0852 (Given - Provider: Edison Muro R.N.) 0843 (Given - Provider: Diaz Norris R.N.) 0931 (Given - Provider: Diaz Norris R.N.) enoxaparin injection 40 mg (Lovenox) 40 mg, subcutaneous, Daily, First dose on Sat12/22/24 at 0900 0852 (Given - Provider: Edison Muro R.N.) 0842 (Given - Provider: Diaz Norris R.N.) 0932 (Given - Provider: Diaz Norris R.N.) fish oil capsule 1,000 mg 1,000 mg, oral, Daily, First dose on Sat12/22/24 at 0900, fish oil (OTC) oral was interchanged for fish Oil (prescription/OTC) See tube feeding guidelines for tube feeding administration instructions. 0852 (Given - Provider: Edison Muro R.N.) 0843 (Given - Provider: Diaz Norris R.N.) 0932 (Given - Provider: Diaz Norris R.N.) fluconazole tablet 100 mg (Diflucan) (CANCELED) 100 mg, oral, Daily, First dose (after last modification) on Sat12/28/24 at 0900, For 12 doses, Drug Monitoring Program: Pharmacist to adjust medication dosing based on indication and drug clearance factors., Indications: esophageal candidiasis 0843 (Given - Provider: Diaz Norris R.N.) fluconazole tablet 100 mg (Diflucan) (COMPLETED) 100 mg, oral, Once, On Sat12/28/24 at 0945, For 1 dose, Drug Monitoring Program: Pharmacist to adjust medication dosing based on indication and drug clearance factors., Indications: esophgeal candidiasis 0947 (Given - Provider: Diaz Norris R.N.) fluconazole tablet 200 mg (Diflucan) (CANCELED) 200 mg, oral, Daily, First dose (after last modification) on Sat12/26/24 at 1315, For 14 doses, Drug Monitoring Program: Pharmacist to adjust medication dosing based on indication and drug clearance factors., Indications: esophageal candidiasis 0852 (Given - Provider: Edison Muro R.N.) fluconazole tablet 200 mg (Diflucan) 200 mg, oral, Daily, First dose (after last modification) on Sat12/29/24 at 0900, For 11 doses, Drug Monitoring Program: Pharmacist to adjust medication dosing based on indication and drug clearance factors., Indications: esophageal candidiasis 0932 (Given - Provider: Diaz Norris R.N.) folic acid tablet 1,000 mcg 1,000 mcg, oral, Daily, First dose on Sat12/22/24 at 0900 0852 (Given - Provider: Edison Muro R.N.) 0843 (Given - Provider: Diaz Norris R.N.) 0932 (Given - Provider: Diaz Norris R.N.) furosemide injection 40 mg (Lasix) (COMPLETED) 40 mg, intravenous, Once, On Sat12/27/24 at 0600, For 1 dose, Adults: Doses less than 120 mg: IV push over 20 mg/minute. Doses 120 mg or greater: IVPB at 4 mg/minute. Peds/Neonates: Doses less than 120 mg over 0.5 mg/kg/minute. Doses 120 mg or greater: IVPB at 4 mg/minute. 0551 (Given - Provider: Carmenza Rodrigues R.N.) furosemide injection 40 mg (Lasix) (COMPLETED) 40 mg, intravenous, Once, On Sat12/28/24 at 0815, For 1 dose, Adults: Doses less than 120 mg: IV push over 20 mg/minute. Doses 120 mg or greater: IVPB at 4 mg/minute. Peds/Neonates: Doses less than 120 mg over 0.5 mg/kg/minute. Doses 120 mg or greater: IVPB at 4 mg/minute. 0842 (Given - Provider: Diaz Norris R.N.) magnesium sulfate in water IVPB 2 g (COMPLETED) 2 g, intravenous, at 25 mL/hr, Administer over 120 Minutes, Once, On Sat12/27/24 at 1115, For 1 dose, Over 2 hours. 1130 (New Bag - Provider: Edison Muro R.N.) methylPREDNISolone sod succinate (PF) injection 250 mg (SOLU-MedroL) (CANCELED) 250 mg, intravenous, Daily, First dose on Sat12/26/24 at 0900, Activate vial to a final concentration of 62.5 mg/mL 0852 (Given - Provider: Edison Muro R.N.) 0842 (Given - Provider: Diaz Norris R.N.) metoprolol succinate 24 hr tablet 25 mg (Toprol XL) 25 mg, oral, Daily, First dose on Sat12/22/24 at 0900, Do NOT crush or chew. Tablet may be split on score if needed. 0852 (Given - Provider: Edison Muro R.N.) 0843 (Given - Provider: Diaz Norris R.N.) 0942 (Given - Provider: Diaz Norris R.N.) qzgtooqvkagd-ybqq-CN-Ca-m inerals 400 mcg (folic acid) tablet 1 tablet 1 tablet, oral, Daily, First dose on Sat12/22/24 at 0900 0852 (Given - Provider: Edison Muro R.N.) 0843 (Given - Provider: Diaz Norris R.N.) 0932 (Given - Provider: iDaz Norris R.N.) pantoprazole DR tablet 40 mg (Protonix) 40 mg, oral, Daily before morning meal, First dose on Sat12/22/24 at 0700, pantoprazole 40 mg oral daily was interchanged for omeprazole 20 or 40 mg oral daily Swallow whole. Do NOT crush, chew, or split tablet. 0550 (Given - Provider: Carmenza Rodrigues R.N.) 0553 (Given - Provider: Carmenza Rodrigues R.N.) 0519 (Given - Provider: Liss[facility] Saha R.N., [facility]) polycarbophil tablet 625 mg (FiberCon) 625 mg, oral, Daily, First dose on Sat12/22/24 at 0900, A full glass (240 mL or 8 fl oz) of liquid should be taken with each dose. 0852 (Given - Provider: Edison Muor RLianne) 0843 (Given - Provider: Diaz Norris R.N.) 0932 (Given - Provider: Diaz Norris R.N.) potassium chloride ER tablet 40 mEq (COMPLETED) 40 mEq, oral, Once, On Sat12/27/24 at 1115, For 1 dose, For K 3-3.4 mEq/L - give total of 40 mEq Swallow whole. Do NOT crush, chew, or split tablet., Monitor the following for replacement: Potassium, Replace Potassium per: Standard Schedule 1130 (Given - Provider: Edison Muro R.N.) potassium chloride ER tablet 40 mEq (COMPLETED) 40 mEq, oral, Once, On Sat12/28/24 at 0715, For 1 dose, For K 3-3.4 mEq/L - give total of 40 mEq Swallow whole. Do NOT crush, chew, or split tablet., Monitor the following for replacement: Potassium, Replace Potassium per: Standard Schedule 0842 (Given - Provider: Diaz Norris R.N.) potassium chloride ER tablet 40 mEq (COMPLETED) 40 mEq, oral, Once, On Sat12/28/24 at 1745, For 1 dose, For K 3-3.4 mEq/L - give total of 40 mEq Swallow whole. Do NOT crush, chew, or split tablet., Monitor the following for replacement: Potassium, Replace Potassium per: Standard Schedule 1755 (Given - Provider: Diaz Norris R.N.) predniSONE tablet 120 mg (Deltasone) 120 mg, oral, Daily, First dose on Sat12/29/24 at 0900 0931 (Given - Provider: Diaz Norris R.N.) sodium chloride 0.9 % injection 3 mL 3 mL, intravenous, Every 12 hours scheduled, First dose on Sat12/21/24 at 2100, Peripheral Intravenous Catheter and Rapid Infusion Catheter, when no infusion to maintain patency 0852 (Given - Provider: Edison Muro R.N.)2152 (Not Given - Provider: Maritza Mancilla R.N. - Reason: Other - Comment: fluids infusing) 0843 (Given - Provider: Diaz Norris R.N.)2036 (Given - Provider: Anshul McnamaraNFelicia) 0942 (Given - Provider: Diaz Norris R.N.) sodium phosphate 15 mmol in NaCl 0.9% IVPB (COMPLETED) 15 mmol, intravenous, at 47.7 mL/hr, Administer over 2.2 Hours, Once, On Sat12/29/24 at 1400, For 1 dose, Administer at 6.8 mmoL phosphate/hr. Max rate of 15 mmoL phosphate/hr. 1445 (New Bag - Provider: Diaz Norris R.N.) sulfamethoxazole-trimetho prim 400-80 mg per tablet 1 tablet (Bactrim) 1 tablet, oral, Daily, First dose on Sat12/29/24 at 0900, Drug Monitoring Program: Pharmacist to adjust medication dosing based on indication and drug clearance factors., Indications: Prophylaxis, medical 0931 (Given - Provider: Diaz Norris R.N.) tamsulosin 24 hr capsule 0.4 mg (Flomax) 0.4 mg, oral, Daily, First dose on Sat12/22/24 at 0900, Swallow whole. Do NOT crush, chew or open capsule. 0852 (Given - Provider: Edison Muro R.N.) 0843 (Given - Provider: Diaz Norris R.N.) 0932 (Given - Provider: Diaz Norris R.N.) thiamine tablet 100 mg (Vitamin B-1) 100 mg, oral, Daily, First dose on Sat12/22/24 at 0900 0852 (Given - Provider: Edison Muro R.N.) 0843 (Given - Provider: Diaz Norris R.N.) 0932 (Given - Provider: Diaz Norris R.N.) Continuous Medication Order 12/27/2024 12/28/2024 12/29/2024 sodium bicarbonate 75 mEq in D5W 1,075 mL infusion (CANCELED) 100 mL/hr, intravenous, Continuous, Starting on Sat12/27/24 at 1115 1406 (New Bag - Provider: Edison Muro R.N.) 0015 (Stopped - Provider: Carmenza Rodrigues R.N.) PRN Medication Order 12/27/2024 12/28/2024 12/29/2024 acetaminophen tablet 1,000 mg (TylenoL) 1,000 mg, oral, Every 6 hours PRN, mild pain or score 1-3 of 10, headaches, fever, moderate pain or score 4-6 of 10, severe pain or score 7-10 of 10, Starting on Sat12/21/24 at 2030, Not to exceed 4 grams of acetaminophen in 24 hours all sources 0549 (Given - Provider: Carmenza Rodrigues R.N. - Comment: requests 1 tab) mdczztjknlXHBAU-xqgq-vpfd-ma g hydrox-simeth suspension 15 mL 15 mL, mouth/throat, As needed, PACU only, Starting on Doretha 12/24/24 at 1410, Pre/Post only heparin flush 500-1,000 Units (COMPLETED) 500-1,000 Units, intra-catheter, During hospitalization, line care, Prior to discharge, Starting on Sat12/25/24 at 1456, For 1 dose, Implanted Vascular Access Device (IVAD) Venous Non-Valved: flush 5 mL (500 units) per port/lumen following saline flush prior to discharge. 1718 (Given - Provid er: Anibal Hassan RFeliciaNFelicia) nitroglycerin SL tablet 0.4 mg (Nitrostat) 0.4 mg, sublingual, Every 5 min PRN, chest pain, Starting on Sat12/21/24 at 2036, May administer up to 3 doses per episode. Dissolve under the tongue. Do NOT crush, chew, split or swallow tablet. ondansetron (PF) injection 4 mg (Zofran)(Linked Group 1) 4 mg, intravenous, Every 6 hours PRN, nausea, vomiting, If unable to tolerate PO, Starting on Sat12/22/24 at 0102 ondansetron ODT disintegrating tablet 4 mg (Zofran-ODT)(Linked Group 1) 4 mg, oral, Every 6 hours PRN, nausea, vomiting, Starting on Sat12/22/24 at 010, When splitting ODT at bedside, handle with gloves and a pill splitter to prevent moisture contact. sodium chloride 0.9 % injection 10 mL 10 mL, intravenous, As needed, line care, Starting on Sat12/21/24 at 2030, Peripheral Intravenous Catheter and Rapid Infusion Catheter, prior to blood sampling, post blood transfusion or post blood sampling sodium chloride 0.9 % injection 3 mL 3 mL, intravenous, As needed, line care, Starting on Sat12/21/24 at 2030, Prior to and following infusion and between multiple consecutive infusions: sodium chloride 0.9 % injection Linked Groups Order Group 1: ondansetron (PF) injection 4 mg (Zofran)Jump to med 4 mg, intravenous, Every 6 hours PRN, nausea, vomiting, If unable to tolerate PO, Starting on Sat12/22/24 at 0102 Or ondansetron ODT disintegrating tablet 4 mg (Zofran-ODT)Jump to med 4 mg, oral, Every 6 hours PRN, nausea, vomiting, Starting on Sat12/22/24 at 0102, When splitting ODT at bedside, handle with gloves and a pill splitter to prevent moisture contact. documented in this encounter Care Teams Radiation Officer Relationship Specialty Start Date End Date None Reported, Pcp PCP - General Family Medicine 12/21/24 documented as of this encounter
--- OUTSIDE RECORDS SUMMARY | 2025-01-05 16:18 | XMS_ITS | Encounter Summary ---
Author Organization [facility] Address [address] [place] [address] Care Team Providers Care Registered Travel Nurse Name Role Phone None Reported, Pcp Primary Care Provider Unavail able Encounter Details Date Type Department Care Team (Latest Contact Info) Description 12/20/2024 Intake [facility] Social History Tobacco Use Types Packs/Day Years Used Date Smoking Tobacco: Former Cigarettes Q uit: 2016 Smokeless Tobacco: Never Alcohol Use Standard Drinks/Week Comments Yes 21 (1 standard drink = 0.6 oz pu re alcohol) [facility] Utilities Answer Date Recorded In the past 12 months has e [employer], gas, oil, or water [employer] threatened to shut off services in your [...] your living situation today? I have a [facility] place to live 12/21/2024 Sex and Gender Information Value Date Recorded Sex Assigned at Male 07/11/2024 2:15 PM CDT Legal Sex Male 9:12 AM GRAIN SHIPPER Gender Identity Male 07/11/2024 2:15 PM CDT Sexual Orientation Straight 07/11/2024 2: 15 PM CDT documented as of this encounter Functional Status * Intimate Partner Violence Question Answer Date of Assessment Author Within the last year, have y ou been humiliated or emotionally abused in other ways by your partner or ex-partner? No 12/21/2024 9:40 PM GRAIN SHIPPER Ethan Hauser, R.N. Within the last year, have y ou been afraid of your partner or ex-partner? No 12/21/2024 9:40 PM GRAIN SHIPPER January Hauser , R.N. Within the last year, have y ou been raped or forced to have any kind of sexual activity by your partner or ex-partner? No 12/21/2024 9:40 PM GRAIN SHIPPER Ginger Hauser R.N. Within the last year, have y ou been kicked, hit, slapped, or otherwise physically hurt by your partner or ex-partner? No 12/21/2024 9:40 PM GRAIN SHIPPER Ginger Hauser R.N. documented as of this encounter Progress Notes * Omaira Miramontes M.SElaine, Teodoro. - 12/20/2024 8:00 AM CST [facility]: ATC referral SUBJECTIVE Referral received from [facility] Transfer [facility] on 12/20/24, as part of hospital transfer request from Dr. Brittany Callejas, [facility] (phone: [phone], fax: [phone]). OBJECTIVE This patient was not accepted for transfer prior to the assessment process. This is a 69 y.o. year old single male from [address] [place] [phone]. The patient was admitted to their facility on 12/15 for diarrhea. The physician is requesting transfer. The patient is aware of, and agrees with, the request to transfer. Reason for transfer request: GI services beyond what the referring facility can offer. Patient is alert and oriented, able to make their own decisions. Referring facility reports the following information: Oxygen: Patient is not requiring supplemental oxygen. Bariatric equipment: Patient does not require bariatric equipment. Mobility: stand by assist ADLs: Patient does not require assistance with activities of daily living. Prior to admission, the patient was living at home independently by self. Wound care: No concerns Diet: Regular diet Isolation precautions: contact isolation and chemo Dialysis: None IV Antibiotics: none Behavioral concerns: No concerns Psychiatric concerns: No concerns Legal concerns: No concerns Financial concerns: No concerns Family concerns: No concerns Multiple hospitalizations: No concerns Patient has the following supports: his children Anticipated discharge disposition according to referring facility: Home Self Care ASSESSMENT / PLAN It appears that minimal barriers to discharge planning have been identified as noted above. RN reports that the patient functions independently and requires no assistance with his ADLs. RN reports that prior to the transfer request, the patient's anticipated discharge would be to return home to self-care. RN reports that the patient has been to [facility] in [place] before for services. PLAN: I have discussed that in the event the patient is transferred here the social cost of travel such as lodging, meals, and transport home are the personal responsibility of the patient and family. Theyhave agreed to relay this information to the family. Lorri Mena, Teodoro. 12/20/2024 N SHIPPER documented in this encounter Plan of Treatment Not on file documented as of this encounter Visit Diagnoses Not on filedocumented in this encounter Care Teams Registered Travel Nurse Relationship Specialty Start Date End Date None Reported, Pcp PCP - General Family Medicine 12/21/24 documented as of this encounter
--- OUTSIDE RECORDS SUMMARY | 2025-01-05 16:18 | XMS_ITS | Encounter Summary ---
Author Organization [facility] Address [address] [place] [address] Care Team Providers Care Casino Enforcement Agent Name Role Phone None Reported, Pcp Primary Care Provider Unavail able Reason for Visit * Outpatient (Routine) - Closed Specialty Diagnoses / Procedures Referred By Murray baxter Referred To Contact Oncology Diagnoses Diarrhea Cristine Reyes APRN, C.N.P. [address] [place] [phone] Phone: tel: fax: [facility] Referral ID Status Reason Start Date Expiration Date Visits Re quested Visits Authorized [id number] Closed 01/01/2025 07/03/2026 1 1 Encounter Details Date Type Department Care Team ([facility] st Contact Info) Description 01/05/2025 10:00 AM PATIENT ACCOUNT ANALYST Office Visit Department of Oncology in [place], [place] [address] [place] [phone] Cristine Reyes APRN, C.N.P. 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 I [facility] a [facility] to live 12/21/2024 Sex and Gender Information Value Date Recorded Sex Assigned at Male 07/11/2024 2:15 PM CDT Legal Sex Male 9:12 AM PATIENT ACCOUNT ANALYST Gender Identity Male 07/11/2024 2:15 PM CDT Sexual Orientation Straight 07/11/2024 2: 15 PM CDT documented as of this encounter Last Filed Vital Signs Vital Sign Reading Time Taken Comments Blood Pressure 120/70 01/05/2025 9:50 AM PATIENT ACCOUNT ANALYST Pulse 83 01/05/2025 9:50 AM PATIENT ACCOUNT ANALYST Temperature 36.8 C (98.2 F) 01/05/2025 9:50 AM PATIENT ACCOUNT ANALYST Respiratory Rate - - Oxygen Saturation 97% 01/05/2025 9:50 AM PATIENT ACCOUNT ANALYST Inhaled Oxygen Concentration - - Weight 67.3 kg (148 lb 5.9 oz) 01/05/2025 9:50 A M PATIENT ACCOUNT ANALYST Height - - Body Mass Index 25.45 12/28/2024 10:26 AM PATIENT ACCOUNT ANALYST documented in this encounter Patient Instructions * Patient Instructions* Cristine Reyes APRN, C.N.P. - 01/05/2025 10:00 AM PATIENT ACCOUNT ANALYST Please decrease your prednisone to 80 mg daily (4 tablets). We will plan to continue to decrease this based on your symptoms. Please do not change your dosing without instructions from our Immunotherapy Toxicity Team. A new prescription has been sent to [facility] for this new dose Please continue to take the Bactrim (sulfamethoxazole-trimethoprim) 1 tablet daily. A new prescription has been sent for this. Please continue to take Omeprazole (Prilosec) 20 mg once daily. A prescription has been sent for this as well Please continue to take budesonide 9 mg (3 pills) once daily. A prescription has been sent for thisas well. Please continue to monitor your stool count. If you have more than 4 bowel movements in a day, please contact the Immunotherapy Toxicity team at [phone] during regular business hours. Leg wrapping. Wrap both legs to the knee daily in the am in a figure 8 pattern. If your swelling progressed into the thigh, please wrap all the way to the groin. Please remove wraps at bedtime and put on your compression stockings. Please do this daily. 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
--- OUTSIDE RECORDS SUMMARY | 2025-01-05 16:18 | XMS_ITS | Encounter Summary ---
Author Organization [facility] Address [address] [place] [address] Care Team Providers Care Business Control Specialist Name Role Phone None Reported, Pcp Primary Care Provider Unavail able Encounter Details Date Type Department Care Team (Latest Contact Info) Description 12/24/2024 1:55 PM SUPERVISOR COREMAKER Ancillary Procedure Department of Gastroenterology Social History Tobacco Use Types Packs/Day Years Used Date Smoking Tobacco: Former Cigarettes Q uit: 2016 Smokeless Tobacco: Never Alcohol Use Standard Drinks/Week Comments Yes 21 (1 standard drink = 0.6 oz pu re alcohol) [facility] Utilities Answer Date Recorded In the past 12 months has e [employer], gas, oil, or water [employer] threatened to shut off services in your [...] your living situation today? [facility] 12/21/2024 Sex and Gender Information Value Date Recorded Sex Assigned at Male 07/11/2024 2:15 PM CDT Legal Sex Male 9:12 AM SUPERVISOR COREMAKER Gender Identity Male 07/11/2024 2:15 PM CDT Sexual Orientation Straight 07/11/2024 2: 15 PM CDT documented as of this encounter Plan of Treatment Not on file documented as of this encounter Procedures Procedure Name Priority Date/Time Associated Diagnosis Comments GASTROENTEROLOGY IMAGE EXAM Routine 12/24/2024 1:55 PM SUPERVISOR COREMAKER documented in this encounter Results * Upper GI endoscopy-Gastroenterology Image Exam (12/24/2024 1:55 PM SUPERVISOR COREMAKER) 12/24/2024 1:52 PM SUPERVISOR COREMAKER Narrative [facility] - 12/24/2024 2:30 PM SUPERVISOR COREMAKER This order has been created and auto-finalized to support the import of images acquired without order. The clinical documentation to support these images can be found on the encounter that produced images. us Provider Not In System IMG NON RAD IMAGING PROCE DURES Final Result [facility] NA documented in this encounter Visit Diagnoses Not on filedocumented in this encounter Care Teams Business Control Specialist Relationship Specialty Start Date End Date None Reported, Pcp PCP - General Family Medicine 12/21/24 documented as of this encounter
[2025-01-05 16:20] VITALS: BP 112/67; PULSE 89; RESP 18; TEMP 36.9; O2SAT 97; BMI 25.6
--- OUTSIDE RECORDS SUMMARY | 2025-01-05 16:56 | XMS_ITS | Clinical Summary ---
Author Organization [facility] Address [address] [place] [address] Care Team Providers Care Box Packer Name Role Phone Jez Burnham MD Primary Care Provider [phone] Allergies No known active allergies Medications LIPITOR [...] on file Legal Sex Male 4:38 AM SCRAPER TENDER Gender Identity Not on file Sexual Orientation Not on file Last Filed Vital Signs Vital Sign Reading Time Taken Comments Blood Pressure 131/80 10/23/2021 3:00 PM SCRAPER TENDER Pulse 97 10/23/2021 3:00 PM SCRAPER TENDER Temperature - - Respiratory Rate 18 10/23/2021 3:00 PM SCRAPER TENDER Oxygen Saturation 98% 10/23/2021 3:00 PM SCRAPER TENDER Inhaled Oxygen Concentration - - Weight 68.5 kg (151 lb) 10/23/2021 3:00 PM SCRAPER TENDER Height 167.6 cm (5' 6) 10/23/2021 3:00 PM SCRAPER TENDER Body Mass Index 24.37 10/23/2021 3:00 PM SCRAPER TENDER Plan of Treatment Not on file Insurance [facility]ICARE [facility] MEDICARE SUPPLEMENT Care Teams Box Packer Relationship Specialty Start Date End Date Jez Burnham MD PCP - General Family Medicine 10/09/21
--- OUTSIDE RECORDS SUMMARY | 2025-01-05 16:57 | XMS_ITS | Clinical Summary ---
Author Organization [facility] Address [address] [place] [address] Care Team Providers Care Desulfurizer Machine Name Role Phone None Reported, Pcp Primary Care Provider Unavail able Source Comments Patient records contain information from all sites at [facility]. For routine questions regarding patient records, call [phone] during business hours, M-F 8:00 AM - 5:00 PM Central Time. Record requests for emergency care only can be directed to [phone] at any time.[facility] Allergies No known active allergies Medications aspirin [...] by mouth daily. 07/25/20 12 Active omega 6-yzd-sgt-fish oil (fish oil) 1,000 mg (120 mg-180 [...] esophageal candidiasis. 9 tablet 5 5:38 PM BRAND ANALYST 12/30/19 25 2024 Active budesonide (Entocort EC) [...] by mouth daily. Please follow up with [facility] team for further tapering details. 60 tablet 5 5:38 PM BRAND ANALYST 12/30/19 25 2024 Discontinued(R eorder) sulfamethoxazole -trimethoprim (Bactrim) 400-80 mg per tabletIndication s:Prophylaxis, medical Take 1 tablet by mouth daily Indications: Prophylaxis, medical. Please follow up with Oncology team. 30 tablet 5 5:38 PM BRAND ANALYST 12/30/19 25 2024 Discontinued(R eorder) Active Problems [...] Department Care Team Description 01/05/2025 10:00 AM BRAND ANALYST Office Visit Department of Oncology in [place], [place] [address] [place] [phone] Cristine Reyes APRN CFeliciaN.P. 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 [facility] 01/01/2025 Clinical Communication Department of Oncology in [place], [place] [address] [place] [phone] Ora Gotti R.N., O.C.N. 12/29/2024 Clinical Communication Department of Oncology in [place], [place] [address] [place] [phone] Keyonna Cavazos APRN, C.N.Sonido, M.S.N. 12/28/2024 Clinical Communication Department of Oncology in [place], [place] [address] [place] [phone] Kurt Shah Jr., M.D., M.B.A. 12/24/2024 2:02 PM BRAND ANALYST Anesthesia Event Division of Gastroenterology in [place], [place] [address] [place] [phone] Parveen Amor APRN, CRNA, D.N.P. 12/24/2024 2:00 PM BRAND ANALYST Ancillary Procedure Department of Gastroenterology 12/24/2024 1:55 PM BRAND ANALYST Ancillary Procedure Department of Gastroenterology 12/23/2024 Clinical Communication Division of Gastroenterology in [place], [place] [address] [place] [phone] Ambika Nguyễn M.D. 12/21/2024 7:57 PM BRAND ANALYST - 12/29/2024 5:52 PM BRAND ANALYST Hospital Encounter [facility], Third Floor [address] [place] [phone] Bismark Bentley M.D. Ravi, Karthik, M.D. Candidiasis [...] 0.6 oz pu re alcohol) [facility] Utilities Answer Date Recorded In the past 12 months has th e [employer], [employer], oil, or water [employer] threatened to shut off services in your [...] your living situation today? I have a [facility] place to live 12/21/2024 Sex and Gender Information Value Date Recorded Sex Assigned at Male 07/11/2024 2:15 PM CDT Legal Sex Male 9:12 AM BRAND ANALYST Gender Identity Male 07/11/2024 2:15 PM CDT Sexual Orientation Straight 07/11/2024 2: 15 PM CDT Last Filed Vital Signs Vital Sign Reading Time Taken Comments Blood Pressure 120/70 01/05/2025 9:50 AM BRAND ANALYST Pulse 83 01/05/2025 9:50 AM BRAND ANALYST Temperature 36.8 C (98.2 F) 01/05/2025 9:50 AM BRAND ANALYST Respiratory Rate 18 12/29/2024 4:35 PM BRAND ANALYST Oxygen Saturation 97% 01/05/2025 9:50 AM BRAND ANALYST Inhaled Oxygen Concentration - - Weight 67.3 kg (148 lb 5.9 oz) 01/05/2025 9:50 A M BRAND ANALYST Height 162.6 cm (5' 4.02) 12/28/2024 10:[address] Body Mass Index 25.45 12/28/2024 10:26 AM BRAND ANALYST Plan of Treatment Health Maintenance Due Date [...] FUNCTION PANEL, S Routine 12/29/2024 7:25 AM BRAND ANALYST MAGNESIUM, S Routine 12/29/2024 7:25 AM BRAND ANALYST CBC WITH DIFFERENTIAL, B Routine 12/29/2024 7:25 AM BRAND ANALYST BASIC METABOLIC PANEL, S/P Timed 12/28/2024 4:08 PM BRAND ANALYST RENAL FUNCTION PANEL, S Routine 12/28/2024 5:52 AM BRAND ANALYST MAGNESIUM, S Routine 12/28/2024 5:52 AM BRAND ANALYST CBC WITH DIFFERENTIAL, B Routine 12/28/2024 5:52 AM BRAND ANALYST QUANTIFERON-TB GOLD PLUS, B Routine 12/28/2024 5:52 AM BRAND ANALYST RENAL FUNCTION PANEL, S Routine 12/27/2024 8:11 AM BRAND ANALYST MAGNESIUM, S Routine 12/27/2024 8:11 AM BRAND ANALYST CBC WITH DIFFERENTIAL, B Routine 12/27/2024 8:11 AM BRAND ANALYST ECG Routine 12/26/2024 12:55 PM BRAND ANALYST RENAL FUNCTION PANEL, S Routine 12/26/2024 9:31 AM BRAND ANALYST MAGNESIUM, S Routine 12/26/2024 9:31 AM BRAND ANALYST CBC WITH DIFFERENTIAL, B Routine 12/26/2024 9:31 AM BRAND ANALYST HBS ANTIBODY, SERUM Routine 12/26/2024 9 :31 AM BRAND ANALYST HEPATITIS B SURFACE ANTIGEN Routine 12/26/2024 9:31 AM BRAND ANALYST HBC TOTAL AB, SERUM Routine 12/26/2024 9 :31 AM BRAND ANALYST RENAL FUNCTION PANEL, S Routine 12/25/2024 6:42 AM BRAND ANALYST MAGNESIUM, S Routine 12/25/2024 6:42 AM BRAND ANALYST CBC WITH DIFFERENTIAL, B Routine 12/25/2024 6:42 AM BRAND ANALYST FUNGAL CULTURE, ROUTINE Routine 12/24/2024 2:19 PM BRAND ANALYST FUNGAL SMEAR Routine 12/24/2024 2:19 PM BRAND ANALYST SURGICAL PATHOLOGY Routine 12/24/2024 2: 08 PM BRAND ANALYST GASTROENTEROLOGY IMAGE EXAM Routine 12/24/2024 2:00 PM BRAND ANALYST GASTROENTEROLOGY IMAGE EXAM Routine 12/24/2024 1:55 PM BRAND ANALYST COLONOSCOPY Routine 12/24/2024 1:52 PM BRAND ANALYST COLONOSCOPY Routine 12/24/2024 1:52 PM BRAND ANALYST UPPER GI ENDOSCOPY Routine 12/24/2024 1: 52 PM BRAND ANALYST EGD (ESOPHAGEALGASTRODUODE NOSCOPY) Routine 12/24/2024 1:52 PM BRAND ANALYST RENAL FUNCTION PANEL, S Routine 12/24/2024 8:41 AM BRAND ANALYST MAGNESIUM, S Routine 12/24/2024 8:41 AM BRAND ANALYST CBC WITH DIFFERENTIAL, B Routine 12/24/2024 8:41 AM BRAND ANALYST RENAL FUNCTION PANEL, S Routine 12/23/2024 6:54 AM BRAND ANALYST MAGNESIUM, S Routine 12/23/2024 6:54 AM BRAND ANALYST CBC WITH DIFFERENTIAL, B Routine 12/23/2024 6:54 AM BRAND ANALYST RENAL FUNCTION PANEL, S Routine 12/22/2024 10:45 AM BRAND ANALYST MAGNESIUM, S Routine 12/22/2024 10:45 AM BRAND ANALYST CBC WITH DIFFERENTIAL, B Routine 12/22/2024 10:45 AM BRAND ANALYST GI PATHOGEN PANEL, PCR, F Routine 12/22/2024 12:48 AM BRAND ANALYST DX ABDOMEN PORTABLE ANTERIOR POSTERIOR 1 VIEW RAD - Routine (most inpatients and all outpatients) 12/21/2024 11:59 PM BRAND ANALYST ECG Routine 12/21/2024 11:48 PM BRAND ANALYST BACTERIA / SIMONA CULTURE, BLOOD STAT 12/21/2024 9:12 PM BRAND ANALYST HEPATIC FUNCTION PANEL, S STAT 12/21/2024 9:00 PM BRAND ANALYST BASIC METABOLIC PANEL, S/P STAT 12/21/2024 9:00 PM BRAND ANALYST BACTERIA / SIMONA CULTURE, BLOOD STAT 12/21/2024 9:00 PM BRAND ANALYST LACTATE FOR SEPSIS WITH REFLEX STAT 12/21/2024 8:59 PM BRAND ANALYST CBC WITH DIFFERENTIAL, B STAT 12/21/2024 8:59 PM BRAND ANALYST THYROID FUNCTION CASCADE, S Routine 12/21/2024 8:53 PM BRAND ANALYST OUTSIDE DX GENERAL Routine 12/15/2024 1: 40 PM BRAND ANALYST OUTSIDE DX CHEST Routine 12/15/2024 1:35 PM BRAND ANALYST HCV AB SCRN W/REFLEX TO HCV PCR, S Routine 07/07/2024 2:56 PM CDT 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 Colitis Collagenous US ABDOMEN COMPLETE WITH LIVER DOPPLER Routine 08/04/2016 8:08 AM CDT from Last 3 Months or Most Recently Relevant to Health Maintenance Results * (ABNORMAL) Renal Function Panel (12/29/2024 7:25 AM BRAND ANALYST) Only the most recent of8 resultswithin the time period is included. Potassium, S 4.7 3.6 - 5.2 mmol/L 12/29/2024 8:41 AM BRAND ANALYST DTL Sodium, S 138 135 - 145 mmol/L 12/29/2024 8:41 AM BRAND ANALYST DTL Chloride, S 105 98 - 107 mmol/L 12/29/2024 8:41 AM BRAND ANALYST DTL Bicarbonate, S 25 22 - 29 mmol/L 12/29/2024 8:41 AM BRAND ANALYST DTL Anion Gap 8 7 - 15 12/29/2024 8:41 AM BRAND ANALYST DTL BUN (Blood Urea Nitrogen), S 20 8 - 24 mg/dL 12/29/2024 8:41 AM BRAND ANALYST DTL Creatinine 1.30 0.74 - 1.35 mg/dL 12/29/2024 8:41 AM BRAND ANALYST DTL Estimated GFR (eGFR) 59(L) >=60 mL/min/BSA 12/29/2024 8:41 AM BRAND ANALYST DTL Comment: Estimated GFR calculated using the 2020 CKD_EPI creatinine equation. Calcium, Total, S 7.9(L) 8.8 - 10.2 mg/dL 12/29/2024 8:41 AM BRAND ANALYST DTL Glucose, S 131 70 - 140 mg/dL 12/29/2024 8:41 AM BRAND ANALYST DTL Albumin, S 2.9(L) 3.5 - 5.0 g/dL 12/29/2024 8:41 AM BRAND ANALYST DTL Phosphorus (Inorganic), S 2.1(L) 2.5 - 4.5 mg/dL 12/29/2024 8:41 AM BRAND ANALYST DTL Blood (Blood, Venous) 12/29/2024 7:25 AM BRAND ANALYST 12/29/2024 8:03 AM BRAND ANALYST us Justyn Torrez M.D. LAB BLOOD ADD-ON Final Result [facility] [address] [place] [address], [facility] [address] [place] [address] * (ABNORMAL) CBC with Differential, Blood (12/29/2024 7:25 AM BRAND ANALYST) Only the most recent of9 resultswithin the time period is included. Hemoglobin 9.8(L) 13.2 - 16.6 g/dL 12/29/2024 8:16 AM BRAND ANALYST DTL Hematocrit 29.0(L) 38.3 - 48.6 % 12/29/2024 8:16 AM BRAND ANALYST DTL Erythrocytes 2.96(L) 4.35 - 5.65 x10(12)/L 12/29/2024 8:16 AM BRAND ANALYST DTL MCV 98.0(H) 78.2 - 97.9 fL 12/29/2024 8:16 AM BRAND ANALYST DTL RBC Distrib Width 14.1 11.8 - 14.5 % 12/29/2024 8:16 AM BRAND ANALYST DTL Platelet Count 162 135 - 317 x10(9)/L 12/29/2024 8:16 AM BRAND ANALYST DTL Leukocytes 7.0 3.4 - 9.6 x10(9)/L 12/29/2024 8:16 AM BRAND ANALYST DTL Neutrophils 6.34 1.56 - 6.45 x10(9)/L 12/29/2024 8:16 AM BRAND ANALYST DHPM Lymphocytes 0.43(L) 0.95 - 3.07 x10(9)/L 12/29/2024 8:16 AM BRAND ANALYST DTL Monocytes 0.25(L) 0.26 - 0.81 x10(9)/L 12/29/2024 8:16 AM BRAND ANALYST DTL Eosinophils <0.03 0.03 - 0.48 x10(9)/L 12/29/2024 8:16 AM BRAND ANALYST DTL Basophils <0.03 0.01 - 0.08 x10(9)/L 12/29/2024 8:16 AM BRAND ANALYST DTL Blood (Blood, Venous) 12/29/2024 7:25 AM BRAND ANALYST 12/29/2024 7:56 AM BRAND ANALYST us Justyn Torrez M.D. LAB BLOOD ADD-ON Final Result [facility] [address] [place] [address], [facility] DTL [facility] [address] [place] [address] DHPM [facility] [address] [place] [address] * Magnesium (12/29/2024 7:25 AM BRAND ANALYST) Only the most recent of8 resultswithin the time period is included. Magnesium, S 1.7 1.7 - 2.3 mg/dL 12/29/2024 8:41 AM BRAND ANALYST DTL Blood (Blood, Venous) 12/29/2024 7:25 AM BRAND ANALYST 12/29/2024 8:03 AM BRAND ANALYST us Justyn Torrez M.D. LAB BLOOD ADD-ON Final Result [facility] [address] [place] [address], [facility] DTL [facility] [address] [place] [address] * (ABNORMAL) Basic Metabolic Panel (12/28/2024 4:08 PM BRAND ANALYST) Only the most recent of2 resultswithin the time period is included. Pathologist [facility] Potassium, S 3.7 3.6 - 5.2 mmol/L 12/28/2024 4:57 PM BRAND ANALYST DTL Sodium, S 138 135 - 145 mmol/L 12/28/2024 4:57 PM BRAND ANALYST DTL Chloride, S 104 98 - 107 mmol/L 12/28/2024 4:57 PM BRAND ANALYST DTL Bicarbonate, S 24 22 - 29 mmol/L 12/28/2024 4:57 PM BRAND ANALYST DTL Anion Gap 10 7 - 15 12/28/2024 4:57 PM BRAND ANALYST DTL BUN (Blood Urea Nitrogen), S 15 8 - 24 mg/dL 12/28/2024 4:57 PM BRAND ANALYST DTL Creatinine 1.34 0.74 - 1.35 mg/dL 12/28/2024 4:57 PM BRAND ANALYST DTL Estimated GFR (eGFR) 57(L) >=60 mL/min/BSA 12/28/2024 4:57 PM BRAND ANALYST DTL Comment: Estimated GFR calculated using the 2020 CKD_EPI creatinine equation. Calcium, Total, S 8.0(L) 8.8 - 10.2 mg/dL 12/28/2024 4:57 PM BRAND ANALYST DTL Glucose, S 137 70 - 140 mg/dL 12/28/2024 4:57 PM BRAND ANALYST DTL Blood (Blood, Venous) 12/28/2024 4:08 PM BRAND ANALYST 12/28/2024 4:39 PM BRAND ANALYST us Faviola Caraballo M.D. LAB BLOOD ADD-ON Final Result [facility] [address] [place] [address], [place] DTL [facility] [address] [place] [address] * QuantiFERON-Tb Gold Plus, Blood (12/28/2024 5:52 AM BRAND ANALYST) [facility] QuantiFERON-TB Gold Plus Result Negative Negative 12/29/2024 10:23 AM BRAND ANALYST [facility] Comment: No interferon-gamma response to [...] Nil Result 0.02 IU/mL 12/29/2024 10:23 AM BRAND ANALYST SDSC TB2 Ag minus Nil Result 0.01 IU/mL 12/29/2024 10:23 AM BRAND ANALYST SDSC Mitogen minus Nil Result 0.72 IU/mL 12/29/2024 10:23 AM BRAND ANALYST SDSC Nil Result 0.01 IU/mL 12/29/2024 10:23 AM BRAND ANALYST [facility] Blood (Blood, Venous) 12/28/2024 5:52 AM BRAND ANALYST 12/28/2024 8:15 AM BRAND ANALYST Narrative [facility] - 12/29/2024 10:23 AM BRAND ANALYST Specimen Information: Specimen ID: [id number] Specimen Type: Blood Specimen Collection Start Date: 12/28/2024 5:52 AM Specimen Received Date: 12/28/2024 8:15 AM Specimen ID: [id number] Specimen Type: Blood Specimen Collection Start Date: 12/28/2024 5:52 AM Specimen Received Date: 12/28/2024 8:15 AM Specimen ID: [id number] Specimen Type: Blood Specimen Collection Start Date: 12/28/2024 5:52 AM Specimen Received Date: 12/28/2024 8:15 AM Specimen ID: [id number] Specimen Type: Blood Specimen Collection Start Date: 12/28/2024 5:52 AM Specimen Received Date: 12/28/2024 8:15 AM Yudi Motley M.D. LAB MICROBIOLOGY - BLOOD ORD ERABLES Final Result Performing Organization Address [facility] de Phone Number [facility] [address] [place] [address] [facility] [address] [place] [address] * ECG 12 Lead (12/26/2024 12:55 PM BRAND ANALYST) Ventricular Rate ECG/Min 79 BPM MUSE MO Interval 132 ms MUSE QRSD Interval 86 ms MUSE QT Interval 384 ms MUSE QTC Interval 440 ms MUSE P [place] 27 degrees MUSE R [place] 32 degrees MUSE T Wave [place] 26 degrees MUSE 12/26/2024 12:5 5 PM BRAND ANALYST 12/26/2024 12:59 PM BRAND ANALYST Impressions MUSE - 12/26/2024 12:59 PM BRAND ANALYST Normal sinus rhythm Normal ECG When compared with ECG of 21-Dec-2024 23:48, No significant change was found Reviewed by JERED García Narrative Procedure Note Justino Sosa M.D. - 12/26/2024 IMPRESSION: Normal sinus rhythm Normal ECG When compared with ECG of 21-Dec-2024 23:48, No significant change was found Reviewed by JERED García Yudi Motley M.D. ECG ORDERABLES Final Result Performing Organization Address [facility] Co de Phone Number MUSE NA * HBc Total Ab, Serum (12/26/2024 9:31 AM BRAND ANALYST) Pathologist [facility] HBc Total Ab, S Negative Negative 12/26/2024 2:23 PM BRAND ANALYST [facility] Blood (Blood, Venous) 12/26/2024 9:31 AM BRAND ANALYST 12/26/2024 12:27 PM BRAND ANALYST Pina Dorado M.D., M.P.H. LAB MICROBIOLOGY - BLOOD ORDERABLES Final Result [facility] [address] [place] [facility] [address] [place] [address] * HBs Antibody, Serum (12/26/2024 9:31 AM BRAND ANALYST) HBs Antibody, S Negative 2:23 PM BRAND ANALYST [facility] Comment: Patient is NOT immune to HBV infection. Consumption of high-dose biotin supplement within 12 hours of blood collection for this test can cause false-negative results. ----REFERENCE VALUE---- Unvaccinated: Negative Vaccinated: Positive HBs Antibody, Quantitative, S <3.5 mIU/mL 12/26/2024 2:23 PM BRAND ANALYST [facility] Comment: ----REFERENCE VALUE---- Unvaccinated: <8.5 mIU/mL Vaccinated: >=11.5 mIU/mL Blood (Blood, Venous) 12/26/2024 9:31 AM BRAND ANALYST 12/26/2024 12:27 PM BRAND ANALYST us Pina Dorado M.D., M.P.H. LAB MICROBIOLOGY - BLOOD ORDERABLES Final Result Performing Organization Address City/[facility]/ZIP Co de Phone Number [facility] [address] [facility] [address] [place] [address] * Hepatitis B Surface Antigen (12/26/2024 9:31 AM BRAND ANALYST) HBs Antigen, S Negative Negative 12/26/2024 2:23 PM BRAND ANALYST [facility] Blood (Blood, Venous) 12/26/2024 9:31 AM BRAND ANALYST 12/26/2024 12:27 PM BRAND ANALYST us Pina Dorado M.D., M.P.H. LAB MICROBIOLOGY - BLOOD ORDERABLES Final Result Performing Organization Address City/[facility]/ZIP Co de Phone Number [facility] [address] [address] [facility] [address] [place] [address] * (ABNORMAL) Fungal Smear (12/24/2024 2:19 PM BRAND ANALYST) Fungal Smear YEAST and PSEUDOHYPH AE(A) 12/24/2024 10:20 PM BRAND ANALYST DTL [place] (Esophagus) 12/24/2024 2:19 PM BRAND ANALYST Magen Borrego M.D. LAB MICROBIOLOGY - GENERAL O RDERABLES Final Result [facility] [address] [place] [address], [facility] [address] [place] [address] * Surgical Pathology (12/24/2024 2:08 PM BRAND ANALYST) 12/25/2024 2:29 PM BRAND ANALYST DTL Participated in the Interpretation Urbano Reno M.D.-Pathology Fellow 12/25/2024 2:29 PM BRAND ANALYST DTL Report electronically signed by Mundo Darby M.D. I verify that I have examined all relevant slides/materials for the specimen(s) and rendered or confirmed the diagnosis. 12/25/2024 2:29 PM BRAND ANALYST DTL Gross Description A: Received in formalin [...] E1. Grossed by LMB. 12/25/2024 2:29 PM BRAND ANALYST DTL Addendum CMV immunostain, (blocks A1, B1, C1 and D1), H. pylori immunostain (block B1), and AFB and GMS special stains (block D1) are all negative for microorganisms. Signed by Mundo Darby M.D. 12/29/2024 1:31 PM This test was developed using an analyte specific reagent. Its performance characteristics were determined by [facility] in a manner consistent with CLIA requirements. This test has not been cleared or approved by the U.S. Food and Drug Administration. 12/29/2024 1:31 PM BRAND ANALYST DTL Comment:REVISED RESULTS Interpretation FINAL DIAGNOSIS A. [...] assessment of this case. 12/29/2024 1:31 PM BRAND ANALYST DTL Biopsy (Duodenum) 12/24/2024 2:08 PM BRAND ANALYST Biopsy (Stomach) 12/24/2024 2:09 PM BRAND ANALYST Biopsy (Ileum) 12/24/2024 2: 27 PM BRAND ANALYST Biopsy (Colon) 12/24/2024 2: 30 PM BRAND ANALYST Polyp (Colon) 12/24/2024 2:3 6 PM BRAND ANALYST us Magen Borrego M.D. LAB SURG PATH ORDERABLES Juan marta Result - Final Performing Organization Address City/[facility] Co de Phone Number [facility] [address] [place] [address], [facility] DTL [address] [place] [address] * Colonoscopy-Gastroenterology Image Exam (12/24/2024 2:00 PM BRAND ANALYST) Only the most recent of2 resultswithin the time period is included. 12/24/2024 1:52 PM BRAND ANALYST Narrative [facility] - 12/24/2024 2:50 PM BRAND ANALYST This order has been created and auto-finalized to support the import of images acquired without order. The clinical documentation to support these images can be found on the encounter that produced images. us Provider Not In System IMG NON RAD IMAGING PROCE DURES Final Result Performing Organization Address City/[facility] Co de Phone Number [facility] NA * Colonoscopy (12/24/2024 1:52 PM BRAND ANALYST) 12/24/2024 1:52 PM BRAND ANALYST [facility]ressions [facility] 12/24/[facility] 2:45 PM BRAND ANALYST Post-op Diagnoses: - Preparation of the colon [...] of the ileum was normal. Biopsied. Narrative [facility] - 12/24/2024 2:45 PM BRAND ANALYST Zana 6 GI GI Patient Name: Cr [...] bowel preparation was evaluated using the BBPS ([place] Bowel Preparation Scale) with scores of: Right [...] * Upper GI Endoscopy (12/24/2024 1:52 PM BRAND ANALYST) 12/24/2024 1:52 PM BRAND ANALYST Impressions [facility] - 12/24/2024 2:20 PM BRAND ANALYST Post-op Diagnoses: - Esophagogastric landmarks identified. - Esophageal plaques were found, suspicious for candidiasis. Brushings performed. - Normal stomach. Biopsied. - Mucosal changes in the duodenum with mild atrophy and nodularity. Biopsied. Narrative [facility] - 12/24/2024 2:20 PM BRAND ANALYST Zana 6 GI GI Patient Name: Cr [...] Pathogen Panel, PCR, Feces (12/22/2024 12:48 AM BRAND ANALYST) Specimen Source STOOL 6:23 AM BRAND ANALYST DTL Campylobacter species Negative Negative 12/22/2024 6:23 AM BRAND ANALYST DTL C. difficile toxin Negative Negative 2024 6:23 AM BRAND ANALYST DTL Plesiomonas shigelloides Negative Negative 12/22/2024 6:23 AM BRAND ANALYST DTL Salmonella species Negative Negative 2024 6:23 AM BRAND ANALYST DTL Vibrio species Negative Negative 12/22/2024 6:23 AM BRAND ANALYST DTL Vibrio cholerae Negative Negative 6:23 AM BRAND ANALYST DTL Yersinia species Negative Negative 12/22/19 6:23 AM BRAND ANALYST DTL Enteroaggregative E. coli (EAEC) Negative Negative 12/22/2024 6:23 AM BRAND ANALYST DTL Enteropathogenic E. coli (EPEC) Negative Negative 12/22/2024 6:23 AM BRAND ANALYST DTL Enterotoxigenic E. coli (ETEC) Negative Negative 12/22/2024 6:23 AM BRAND ANALYST DTL Shiga toxin producing E. coli Negative Negative 12/22/2024 6:23 AM BRAND ANALYST DTL Shigella/Enteroinvas mary grace E. coli Negative Negative 12/22/2024 6:23 AM BRAND ANALYST DTL Cryptosporidium species Negative Negative 12/22/2024 6:23 AM BRAND ANALYST DTL Cyclospora cayetanensis Negative Negative 12/22/2024 6:23 AM BRAND ANALYST DTL Entamoeba histolytica Negative Negative 12/22/2024 6:23 AM BRAND ANALYST DTL Giardia Negative Negative 12/22/2024 6:23 AM BRAND ANALYST DTL Adenovirus F40/41 Negative Negative 025 6:23 AM BRAND ANALYST DTL Astrovirus Negative Negative 12/22/2024 6:23 AM BRAND ANALYST DTL Norovirus GI/GII Negative Negative 12/22/19 25 6:23 AM BRAND ANALYST DTL Rotavirus Ag, F Negative Negative 6:23 AM BRAND ANALYST DTL Sapovirus Negative Negative 12/22/2024 6:23 AM BRAND ANALYST DTL Comment: ----ADDITIONAL INFORMATION---- This assay is performed using the FDA-cleared FilmArray GI Panel ([employer] Stool (Stool) 12/22/2024 12: 48 AM BRAND ANALYST 12/22/2024 3:25 AM BRAND ANALYST Justyn Torrez M.D. LAB MICROBIOLOGY - GENE RAL ORDERABLES Final Result [facility] [address] [place] [address], [facility] DTL [address] [facility] [address] [place] [address] * DX Abdomen Portable Anterior Posterior 1 View (12/21/2024 11:59 PM BRAND ANALYST) Anatomical Region Laterality Modality Abdomen, Abdominal RST LOS, Abdominal ARZ LOS, Abdominal FLA LOS N/A Digital Radiography Impressions 12/22/2024 8:40 AM BRAND ANALYST Nonobstructive bowel gas pattern. Anastomotic sutures right hemiabdomen. Thoracolumbar levocurvature. Multilevel spondylotic changes. Demineralization. Narrative 12/22/2024 8:40 AM BRAND ANALYST EXAM: DX ABDOMEN PORTABLE ANTERIOR POSTERIOR 1 VIEW Procedure Note Jay, Walt Padilla M.D. - 12/22/2024 EXAM: DX ABDOMEN PORTABLE ANTERIOR POSTERIOR 1 VIEW IMPRESSION: Nonobstructive bowel gas pattern. Anastomotic sutures right hemiabdomen.Thoracolumbar levocurvature. Multilevel spondylotic changes.Demineralization. Justyn Torrez M.D. IMG DIAGNOSTIC IMAGING PROCEDURES Final Result * Bacteria / Simona Culture, Blood #1 (12/21/2024 9:12 PM BRAND ANALYST) Only the most recent of2 resultswithin the time period is included. Bacteria/Emily da Culture, Blood No growth after 5 days of incubation. 12/26/2024 10:02 PM BRAND ANALYST DTL Blood (Blood, Peripheral Draw) 12/21/2024 9:12 PM BRAND ANALYST 12/21/2024 9:56 PM BRAND ANALYST Comment:Specimen Source Site : Blood Pina Dorado M.D., M.P.H. LAB MICROBIOLOGY - GENERAL ORDERABLES Final Result Performing Organization Address City/[facility] Co de Phone Number [facility] [address] [place] [address], [facility] [address] [place] [address] * (ABNORMAL) Hepatic Function Panel (12/21/2024 9:00 PM BRAND ANALYST) Bilirubin, Total, S 0.2 0.0 - 1.2 mg/dL 12/21/2024 10:33 PM BRAND ANALYST DTL Bilirubin, Direct, S <0.2 0.0 - 0.3 mg/dL 12/21/2024 10:33 PM BRAND ANALYST DTL Aspartate Aminotransferase (AST), S 23 8 - 48 U/L 12/21/2024 10:33 PM BRAND ANALYST DTL Alanine Aminotransferase (ALT), S 30 7 - 55 U/L 12/21/2024 10:33 PM BRAND ANALYST DTL Alkaline Phosphatase, S 45 40 - 129 U/L 12/21/2024 10:33 PM BRAND ANALYST DTL Albumin, S 3.0(L) 3.5 - 5.0 g/dL 12/21/2024 10:33 PM BRAND ANALYST DTL Protein, Total, S 4.6(L) 6.3 - 7.9 g/dL 12/21/2024 10:33 PM BRAND ANALYST DTL Blood (Blood, Venous) 12/21/2024 9:00 PM BRAND ANALYST 12/21/2024 10:08 PM BRAND ANALYST Pina Dorado M.D., M.P.H. LAB BLOOD ADD-ON Fi nal Result Performing Organization Address City/[facility]/ZIP Co de Phone Number [facility] [address] [place] [address], [facility] 200 [place] [address] * Lactate for Sepsis with Reflex (12/21/2024 8:59 PM BRAND ANALYST) Lactate, P 1.0 0.5 - 2.2 mmol/L 12/21/2024 9:40 PM BRAND ANALYST [facility] Blood (Blood, Venous) 12/21/2024 8:59 PM BRAND ANALYST 12/21/2024 9:25 PM BRAND ANALYST Pina Dorado M.D., M.P.H. LAB BLOOD NON ADD-O N Final Result Performing Organization Address City/[facility]/ZIP Co de Phone Number [facility] [address] [place] [address] * Thyroid Function [place] (12/21/2024 8:53 PM BRAND ANALYST) TSH, Sensitive 1.4 0.3 - 4.2 mIU/L 12/21/2024 11:59 PM BRAND ANALYST DT Blood (Blood, Venous) 12/21/2024 8:53 PM BRAND ANALYST 12/21/2024 11:27 PM BRAND ANALYST Result [facility] Justyn Torrez M.D. LAB BLOOD ADD-ON Final Result Performing Organization Address [facility] Co de Phone Number [facility] [address] [place] [address] * XR ABDOMEN 1V-Outside Gen Dx Stdy (12/15/2024 1:40 PM BRAND ANALYST) Narrative IIMS - 12/21/2024 10:14 AM BRAND ANALYST This order has been created and auto-finalized to support the import of outside images. If available, original interpretation can be found on the Media Tab in Chart Review, in Document Viewer, as an image in QREADS or as an Addendum. If a re-interpretation or overread is required please follow defined workflow. us Provider Not In System IMG DIAGNOSTIC IMAGING MO OCEDURES Final Result Performing Organization Address City/[facility]/ZIP Co de Phone Number [facility] NA * XR CHEST 1V PORTABLE-Outside Chest Xray (12/15/2024 1:35 PM BRAND ANALYST) Narrative IIMS - 12/21/2024 10:16 AM BRAND ANALYST This order has been created and auto-finalized to support the import of outside images. If available, original interpretation can be found on the Media Tab in Chart Review, in Document Viewer, as an image in QREADS or as an Addendum. If a re-interpretation or overread is required please follow defined workflow. us Provider Not In System IMG DIAGNOSTIC IMAGING MO OCEDURES Final Result [facility]ITX NA * HCV Ab Scrn w/Reflex to [...] MICROBIOLOGY - B LOOD ORDERABLES Final Result [facility] [address] [place] [address] [facility] [address] [place] [address] * US Abdomen and Abdomen Doppler (08/04/2016 [...] effusions. Electronically signed by: Tasneem Brand M.D. [id number] 04-Aug-2016 08:18 Narrative 08/04/2016 8:18 AM CDT 04-Aug-2016 08:08:00 Exam: US Abd Cmpl with Doppler Lmtd Indications: [id number] ABDOMEN WITH DOPPLER/liver disease alcoholic/pt w/encephalopathy and heavy alcohol use w/2 cm liver nodule and elevated liver studies. ORIGINAL REPORT - 04-Aug-2016 08:18:00 EXAM: US Abdomen Complete with limited color and spectral Doppler analysis COMPARISON: CT 08/03/2016 Procedure Note Felipe Brand M.D. - 02/13/2018 04-Aug-2016 08:08:00 Exam: US Abd Cmpl with Doppler Lmtd Indications: [id number] ABDOMEN WITH DOPPLER/liver diseasealcoholic/pt w/encephalopathy and heavy [...] M.D. [id number] 04-Aug-2016 08:18 Jacqueline Tineo M.D. [facility] [place] PROCEDURES Final Re sult from Last 3 Months or Most Recently Relevant to Health Maintenance Insurance MEDICARE [facility] Advance Directives For more information, please contact: [phone] * Full Code (Latest Code Status on File) Date Activated Date Inactivated Comments 12/21/2024 10:53 PM 12/29/2024 7:52 PM Question Answer Comments Full Code: Discussed Care Teams Desulfurizer Machine Relationship Specialty Start Date End Date None Reported, Pcp PCP - General Family Medicine 12/21/24
--- OUTSIDE RECORDS SUMMARY | 2025-01-05 16:57 | XMS_ITS | Encounter Summary ---
Author Organization [facility] Address [address] [place] [address] Care Team Providers Care Customer Operations Manager Name Role Phone None Reported, Pcp Primary Care Provider Unavail able Encounter Details Date Type Department Care Team (Latest Contact Info) Description 12/24/2024 1:55 PM GENERAL NEUROLOGIST Ancillary Procedure Department of Gastroenterology Social History Tobacco Use Types Packs/Day Years Used Date Smoking Tobacco: Former Cigarettes Q uit: 2016 Smokeless Tobacco: Never Alcohol Use Standard Drinks/Week Comments Yes 21 (1 standard drink = 0.6 oz pu re alcohol) [facility] Utilities Answer Date Recorded In the past 12 months has e [employer], gas, oil, or water [employer] threatened to shut off services in your [...] your living situation today? I have a [facility] place to live 12/21/2024 Sex and Gender Information Value Date Recorded Sex Assigned at Male 07/11/2024 2:15 PM CDT Legal Sex Male 9:12 AM GENERAL NEUROLOGIST Gender Identity Male 07/11/2024 2:15 PM CDT Sexual Orientation Straight 07/11/2024 2: 15 PM CDT documented as of this encounter Plan of Treatment Not on file documented as of this encounter Procedures Procedure Name Priority Date/Time Associated Diagnosis Comments GASTROENTEROLOGY IMAGE EXAM Routine 12/24/2024 1:55 PM GENERAL NEUROLOGIST documented in this encounter Results * Upper GI endoscopy-Gastroenterology Image Exam (12/24/2024 1:55 PM GENERAL NEUROLOGIST) 12/24/2024 1:52 PM GENERAL NEUROLOGIST Narrative IIMS - 12/24/2024 2:30 PM GENERAL NEUROLOGIST This order has been created and auto-finalized to support the import of images acquired without order. The clinical documentation to support these images can be found on the encounter that produced images. us Provider Not In System IMG NON RAD IMAGING PROCE DURES Final Result IIMS NA documented in this encounter Visit Diagnoses Not on filedocumented in this encounter Care Teams Customer Operations Manager Relationship Specialty Start Date End Date None Reported, Pcp PCP - General Family Medicine 12/21/24 documented as of this encounter
--- OUTSIDE RECORDS SUMMARY | 2025-01-05 16:57 | XMS_ITS | Encounter Summary ---
Author Organization [facility] Address [address] [place] [address] Care Team Providers Care Packing And Stamping Machine Operator Name Role Phone None Reported, Pcp Primary Care Provider Unavail able Encounter Details Date Type Department Care Team (Latest Contact Info) Description 12/24/2024 2:00 PM CHILD MONITOR Ancillary Procedure Department of Gastroenterology Social History Tobacco Use Types Packs/Day Years Used Date Smoking Tobacco: Former Cigarettes Q uit: 2016 Smokeless Tobacco: Never Alcohol Use Standard Drinks/Week Comments Yes 21 (1 standard drink = 0.6 oz pu re alcohol) [facility] Utilities Answer Date Recorded In the past 12 months has e [employer], gas, oil, or water [employer] threatened to shut off services in your [...] your living situation today? I have a [facility] place to live 12/21/2024 Sex and Gender Information Value Date Recorded Sex Assigned at Male 07/11/2024 2:15 PM CDT Legal Sex Male 9:12 AM CHILD MONITOR Gender Identity Male 07/11/2024 2:15 PM CDT Sexual Orientation Straight 07/11/2024 2: 15 PM CDT documented as of this encounter Plan of Treatment Not on file documented as of this encounter Procedures Procedure Name Priority Date/Time Associated Diagnosis Comments GASTROENTEROLOGY IMAGE EXAM Routine 12/24/2024 2:00 PM CHILD MONITOR documented in this encounter Results * Colonoscopy-Gastroenterology Image Exam (12/24/2024 2:00 PM CHILD MONITOR) 12/24/2024 1:52 PM CHILD MONITOR Narrative IIMS - 12/24/2024 2:50 PM CHILD MONITOR This order has been created and auto-finalized to support the import of images acquired without order. The clinical documentation to support these images can be found on the encounter that produced images. us Provider Not In System IMG NON RAD IMAGING PROCE DURES Final Result IIMS NA documented in this encounter Visit Diagnoses Not on filedocumented in this encounter Care Teams Packing And Stamping Machine Operator Relationship Specialty Start Date End Date None Reported, Pcp PCP - General Family Medicine 12/21/24 documented as of this encounter
--- OUTSIDE RECORDS SUMMARY | 2025-01-05 16:57 | XMS_ITS | Encounter Summary ---
Author Organization [facility] Address [address] [place] [address] Care Team Providers Care Trim Operator Name Role Phone None Reported, Pcp Primary Care Provider Unavail able Encounter Details Date Type Department Care Team (Late st Contact Info) Description 12/28/2024 Clinical Communication Department of Oncology in [place], [place] [address] [place] [phone] Kurt Shah Jr., M.D., M.B.A. [address] [place] [phone] Social History Tobacco Use Types Packs/Day Years Used Date Smoking Tobacco: Former Cigarettes Q uit: 2016 Smokeless Tobacco: Never Alcohol Use Standard Drinks/Week Comments Yes 21 (1 standard drink = 0.6 oz pu re alcohol) [facility] Utilities Answer Date Recorded In the past 12 months has [email or web address], gas, oil, or water [employer] threatened to shut off services in your [...] your living situation today? 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
--- OUTSIDE RECORDS SUMMARY | 2025-01-05 16:57 | XMS_ITS | Encounter Summary ---
Author Organization [facility] Address [address] [place] [address] Care Team Providers Care Fourchette Sewer Name Role Phone None Reported, Pcp Primary Care Provider Unavail able Encounter Details Date Type Department Care Team (Late st Contact Info) Description 12/29/2024 Clinical Communication Department of Oncology in [place], [place] [address] [place] [phone] Keyonna Cavazos APRN, C.N.P., M.S.N. [address] [place] [phone] Social History Tobacco Use Types Packs/Day Years Used Date Smoking Tobacco: Former Cigarettes Q uit: 2016 Smokeless Tobacco: Never Alcohol Use Standard Drinks/Week Comments Yes 21 (1 standard drink = 0.6 oz pu re alcohol) [facility] Utilities Answer Date Recorded In the past 12 months has e [employer], gas, oil, or water [employer] threatened to shut off services in [...] your living situation today? 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
--- OUTSIDE RECORDS SUMMARY | 2025-01-05 16:57 | XMS_ITS | Encounter Summary ---
Author Organization [facility] Address [address] [place] [address] Care Team Providers Care Sap Portal Developer Name Role Phone None Reported, Pcp Primary Care Provider Unavail able Encounter Details Date Type Department Care Team (Latest Contact Info) Description 12/24/2024 2:02 PM CERTIFIED PHYSICIAN'S ASSISTANT Anesthesia Event Division of Gastroenterology in [place], [place] [address] [place] [phone] Parveen Amor APRN, CRNA, D.N.P. [address] [place] [phone] Anesthesia Record Procedure Summary Procedure Name Responsible [...] drink = 0.6 oz pu re alcohol) [facility] Utilities Answer Date Recorded In the past 12 months has th e [employer], gas, oil, or water [employer] threatened to shut off services in your [...] PM CDT Legal Sex Male 9:12 AM CERTIFIED PHYSICIAN'S ASSISTANT Gender Identity Male 07/11/2024 2:15 PM CDT Sexual Orientation Straight 07/11/2024 2: 15 PM CDT documented as of this encounter OR Notes * Anesthesia Postprocedure Evaluation - Parveen Amor APRN, CRNA, D.N.P. - 12/24/2024 2:50 PM CST Patient: Cr Castrejon Procedure Summary Date: 12/24/24 Room / Location: Division of Gastroenterology in [place], [place] Anesthesia Start: 1402 Anesthesia Stop: 1448 [...] euvolemic Notable Events No notable events documented. IFIED PHYSICIAN'S ASSISTANT * Anesthesia Preprocedure Evaluation - Parveen Amor APRN, CRNA, Piyush.N.P. - 12/24/2024 1:52 PM CST Preprocedure Anesthesia & H&P Assessment Procedure Summary Date/Time: 12/24/24 1345 Scheduled providers: Parveen Amor APRN, CRNA, D.N.P. Procedures: EGD (ESOPHAGEALGASTRODUODENOSCOPY) COLONOSCOPY Location: Division of Gastroenterology in [place], [place] Pertinent components of the patient's history [...] with patient /legal guardian or through an voice professor. The use of blood products not discussed Approval to Proceed: approved for anesthesia IFIED PHYSICIAN'S ASSISTANT IFIED PHYSICIAN'S ASSISTANT documented in this encounter Plan of Treatment [...] Anesthesia Intra-op New Bag 12/24/2024 2:02 PM CERTIFIED PHYSICIAN'S ASSISTANT ondansetron (PF) injection (Zofran) intravenous, As needed, Starting on Doretha 12/24/24 at 1406, Anesthesia Intra-op Given 12/24/2024 2:06 PM CERTIFIED PHYSICIAN'S ASSISTANT 4 mg propofol 10 mg/mL infusion (Diprivan) intravenous, Continuous Infusion: Per Instructions PRN, Starting on Doretha 12/24/24 at 1406, Anesthesia Intra-op New Bag 12/24/2024 2:06 PM CERTIFIED PHYSICIAN'S ASSISTANT 150 mcg/kg/min 53.55 mL/hr propofoL injection (Diprivan) intravenous, As needed, Starting on Doretha 12/24/24 at 1406, Anesthesia Intra-op Given 12/24/2024 2:36 PM CERTIFIED PHYSICIAN'S ASSISTANT 20 mg Given 12/24/2024 2:31 PM CERTIFIED PHYSICIAN'S ASSISTANT 30 mg Given 12/24/2024 2:09 PM CERTIFIED PHYSICIAN'S ASSISTANT 20 mg documented in this encounter Care Teams Sap Portal Developer Relationship Specialty Start Date End Date None Reported, Pcp PCP - General Family Medicine 12/21/24 documented as of this encounter
--- OUTSIDE RECORDS SUMMARY | 2025-01-05 16:57 | XMS_ITS | Encounter Summary ---
Author Organization [facility] Address [address] [place] [address] Care Team Providers Care Statistical Technician Name Role Phone None Reported, Pcp Primary Care Provider Unavail able Reason for Visit * Reason Onset Date Comments Family [facility] calling 01/05/2025 Encounter Details Date Type Department Care Team (Latest Contact Info) Description 01/05/2025 Clinical Communication Department of Oncology in [place], [place] [address] [place] [phone] Cristine Reyes, INDER, C.N.P. [address] [place] [phone] Family [facility] calling Social History Tobacco Use Types Packs/Day Years Used Date Smoking Tobacco: Former Cigarettes Q uit: 2016 Smokeless Tobacco: Never Alcohol Use Standard Drinks/Week Comments Yes 21 (1 standard drink = 0.6 oz pu re alcohol) [facility] Utilities Answer Date Recorded In [...] your living situation today? I have a [facility] place to live 12/21/2024 Sex and Gender Information Value Date Recorded Sex Assigned at Male 07/11/2024 2:15 PM CDT Legal Sex Male 9:12 AM MASTER PRINTER Gender Identity Male 07/11/2024 2:15 PM CDT Sexual Orientation Straight 07/11/2024 2: 15 PM CDT documented as of this encounter Plan of Treatment Not on file documented as of this encounter Visit Diagnoses Not on filedocumented in this encounter Care Teams Statistical Technician Relationship Specialty Start Date End Date None Reported, Pcp PCP - General Family Medicine 12/21/24 documented as of this encounter
--- OUTSIDE RECORDS SUMMARY | 2025-01-05 16:57 | XMS_ITS ---
Author Organization [facility] Address [address] [place] [address] Care Team Providers Care Engine Manager Name Role Phone None Reported, Pcp [...] Fraction Dose Fractions Total Dose Plans Planned [id number] 09/16/2023 - 09/27/2023 300 cGy 3 ,000 cGy Reference Points Delivered [id number] 09/16/2023 - 09/27/2023 3,000 cGy
--- OUTSIDE RECORDS SUMMARY | 2025-01-05 16:57 | XMS_ITS | Encounter Summary ---
Author Organization [facility] Address [address] [place] [address] Care Team Providers Care Artificial Snow Making Machine Operator Name Role Phone None Reported, Pcp Primary Care Provider Unavail able Reason for Visit * Outpatient (Routine) - Closed Specialty Diagnoses / Procedures Referred By Murray baxter Referred To Contact Oncology Diagnoses Diarrhea Cristine Reyes APRN, C.N.P. [address] [place] [phone] Phone: tel: fax: [facility] Referral ID Status Reason Start Date Expiration Date Visits Re quested Visits Authorized [id number] Closed 01/01/2025 07/03/2026 1 1 Encounter Details Date Type Department Care Team ([facility] st Contact Info) Description 01/05/2025 10:00 AM TONGUE BINDER Office Visit Department of Oncology in [place], [place] [address] [place] [phone] Cristine Reyes APRN, C.N.P. [address] [place] [phone] Diarrhea; Malignant Neoplasm Of Lung Small Cell Right (HCC) Social History Tobacco Use Types Packs/Day Years Used Date Smoking Tobacco: Former Cigarettes Q uit: 2016 Smokeless Tobacco: Never Alcohol Use Standard Drinks/Week Comments Yes 21 (1 standard drink = 0.6 oz pu re alcohol) [facility] Utilities Answer Date Recorded In the [...] PM CDT Legal Sex Male 9:12 AM TONGUE BINDER Gender Identity Male 07/11/2024 2:15 PM CDT Sexual Orientation Straight 07/11/2024 2: 15 PM CDT documented as of this encounter Last Filed Vital Signs Vital Sign Reading Time Taken Comments Blood Pressure 120/70 01/05/2025 9:50 AM TONGUE BINDER Pulse 83 01/05/2025 9:50 AM TONGUE BINDER Temperature 36.8 C (98.2 F) 01/05/2025 9:50 AM TONGUE BINDER Respiratory Rate - - Oxygen Saturation 97% 01/05/2025 9:50 AM TONGUE BINDER Inhaled Oxygen Concentration - - Weight 67.3 kg (148 lb 5.9 oz) 01/05/2025 9:50 A M TONGUE BINDER Height - - Body Mass Index 25.45 12/28/2024 10:26 AM TONGUE BINDER documented in this encounter Patient Instructions * Patient Instructions* Cristine Reyes APRN, C.N.P. - 01/05/2025 10:00 AM TONGUE BINDER Please decrease your prednisone to 80 mg [...] please contact the Immunotherapy Toxicity team at [phone] during regular business hours. Leg wrapping. Wrap both legs to the knee daily in the am in a figure 8 pattern. If your swelling progressed into the thigh, please wrap all the way to the groin. Please remove wraps at bedtime and put on your compression stockings. Please do this daily. UE BINDER UE BINDER UE BINDER documented in this encounter Plan of Treatment Not on file documented as of this encounter Visit Diagnoses Diagnosis Diarrhea Malignant Neoplasm Of Lung Small Cell Right (HCC) documented in this encounter Care Teams Artificial Snow Making Machine Operator Relationship Specialty Start Date End Date None Reported, Pcp PCP - General Family Medicine 12/21/24 documented as of this encounter
--- OUTSIDE RECORDS SUMMARY | 2025-01-05 16:57 | XMS_ITS | Encounter Summary ---
Author Organization [facility] Address [address] [place] [address] Care Team Providers Care Director Marketing Analytics Name Role Phone None Reported, Pcp Primary Care Provider Unavail able Reason for Referral * Outpatient (Routine) - Closed Specialty Diagnoses / Procedures Referred By Murray baxter Referred To Contact Oncology Diagnoses Diarrhea Cristine Reyes APRN, C.N.P. [address] [place] [phone] Phone: tel: fax: [facility] Referral ID Status Reason Start Date Expiration Date Visits Re quested Visits Authorized [id number] Closed 01/01/2025 07/03/2026 1 1 Scheduling Instructions Please call with appts- it doesn't look like he has checked the portal since June. Thanks! SE WORKER Encounter Details Date Type Department Care Team (Late st Contact Info) Description 01/01/2025 Clinical Communication Department of Oncology in [place], [place] [address] [place] [phone] Ora Gotti R.N., O.C.N. [address] [place] [phone] Social History Tobacco Use Types Packs/Day Years Used Date Smoking Tobacco: Former Cigarettes Q uit: 2016 Smokeless Tobacco: Never Alcohol Use Standard Drinks/Week Comments Yes 21 (1 standard drink = 0.6 oz pu re alcohol) [facility] Utilities Answer Date Recorded In the past 12 months has th e [employer], gas, oil, or water company threatened to [...] your living situation today? [facility] 12/21/2024 Sex and Gender Information Value Date Recorded Sex Assigned at Male 07/11/2024 2:15 PM CDT Legal Sex Male 9:12 AM GREASE WORKER Gender Identity Male 07/11/2024 2:15 PM CDT Sexual Orientation Straight 07/11/2024 2: 15 PM CDT documented as of this encounter Miscellaneous Notes * Telephone Encounter - Ora Gotti R.N., O.C.N. - 01/01/2025 12:11 PM GREASE WORKER SUBJECTIVE CHIEF COMPLAINT / REASON FOR CALL [...] does have this as Cristine Reyes APRN, KARATE BLACK BELT confirms she does want him on 9 [...] following references were used: nursing clinical judgement. SE WORKER documented in this encounter Plan of Treatment Scheduled Referrals Name Type Priority Associated Diagnoses Orde r Schedule Oncology office visit (clinic) Outpatient Referral Routine Diarrhea Expected: 01/05/2025, Expires: 03/31/2026 documented as of this encounter Visit Diagnoses Diagnosis Diarrhea- Primary documented in this encounter Care Teams Director Marketing Analytics Relationship Specialty Start Date End Date None Reported, Pcp PCP - General Family Medicine 12/21/24 documented as of this encounter
--- OUTSIDE RECORDS SUMMARY | 2025-01-05 16:58 | XMS_ITS | Clinical Summary ---
Author Organization [facility] Address [address] [place] [address] Care Team Providers Care Employment Law Attorney Name Role Phone Andrei Burnham MD Primary Care Provider [phone] Allergies No known active allergies Medications atorvastatin [...] on file Legal Sex Male 5:24 AM EXERCISE PLANNER Gender Identity Not on file Sexual Orientation [...] 65+ 07/19/2024 Medical Devices Implanted Type Area Hoist Worker Device Identifier Shelf Expiration Date Model / Serial / Lot Patch Vasc 0.8x8cm Biological Peripatch - [id number] Implanted:Qty: 1 on 10/07/2013 by Devin Cardoza MD at [facility] Left: Carotid Artery [employer] 06/17/2016 0.8P8# / / [id number] Procedures Procedure Name Priority Date/Time Associated Diagnosis Comments LIPID PANEL Early AM 05/30/2013 5:25 AM CDT from Last 3 Months or Most Recently Relevant to Health Maintenance Results * Lipid Panel - In AM (05/30/2013 5:25 AM CDT) CHOLESTEROL,TOTA L 112 100 - 199 mg/dL [facility] TRIGLYCERIDES 126 <150 mg/dL [facility] HDL CHOLESTEROL 49 >40 mg/dL [facility] CHOL/HDL RATIO 2.29 <4.50 [facility] NON-HDL CHOLESTEROL 63 Undefined mg/dL [facility] LDL CHOLESTEROL 38 <131 mg/dL [facility] PATIENT STATUS Fasting [facility] Blood specimen (specimen) BLOOD SPECIMEN / Unknown 05/30/2013 5:25 AM CDT 05/29/2013 11:10 PM CDT Pranav Bennett MD CHEMISTRY F inal Result [facility] [place]NAL ZIP [id number] [address] [place] [address] from Last 3 Months or Most Recently Relevant to Health Maintenance Insurance [facility] MEDICARE PB ONLY MEDICARE PART B HB ONLY MEDICARE PART A HB ONLY * Guarantor: DIOGENES CASTREJON Account Type Relation to Patient Date of Phone Billing Address Workers Comp 1955 ([place]) [id number] [place] [id number] WORKERS COMP Advance Directives * Full Code [...] 11:10 PM 05/31/2013 3:24 PM Care Teams Employment Law Attorney Relationship Specialty Start Date End Date Andrei Burnham MD PCP - General Family Practice 06/08/13
--- OUTSIDE RECORDS SUMMARY | 2025-01-05 16:58 | XMS_ITS | Encounter Summary ---
Author Organization [facility] Address [address] [place] [address] Care Team Providers Care Terrazzo Worker Name Role Phone None Reported, Pcp Primary Care Provider Unavail able Encounter Details Date Type Department Care Team (Latest Contact Info) Description 12/20/2024 Intake [facility] Social History Tobacco Use Types Packs/Day Years Used Date Smoking Tobacco: Former Cigarettes Q uit: 2016 Smokeless Tobacco: Never Alcohol Use Standard Drinks/Week Comments Yes 21 (1 standard drink = 0.6 oz pu re alcohol) [facility] Utilities Answer Date Recorded In the past 12 months has e [employer], gas, oil, or water [employer] threatened to shut off services in your [...] your living situation today? 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 No 12/21/2024 9:40 PM ACUPRESSURIST Ethan Hauser, R.N. Within the last year, have y ou been afraid of your partner or ex-partner? No 12/21/2024 9:40 PM ACUPRESSURIST January Hauser , R.N. Within the last year, have y ou been raped or forced to have any kind of sexual activity by your partner or ex-partner? No 12/21/2024 9:40 PM ACUPRESSURIST Ginger Hauser R.N. Within the last year, have y ou been kicked, hit, slapped, or otherwise physically hurt by your partner or ex-partner? No 12/21/2024 9:40 PM ACUPRESSURIST Ginger Hauser R.N. documented as of this encounter Progress Notes * Omaira Miramontes M.SElaine, Teodoro. - 12/20/2024 8:00 AM CST [facility]: ATC referral SUBJECTIVE Referral received from [facility] on 12/20/24, as part of hospital transfer request from Dr. Brittany Callejas, [facility] [place] (phone: [phone], fax: [phone]). OBJECTIVE This patient was not accepted for transfer prior to the assessment process. This is a 69 y.o. year old single male from [address] [place] [phone]. The patient was admitted to their facility [...] reports that the patient has been to [facility] in [place] before for services. PLAN: I have discussed that in the event the patient is transferred here the social cost of travel such as lodging, meals, and transport home are the personal responsibility of the patient and family. Theyhave agreed to relay this information to the family. Lorri Mena, Teodoro. 12/20/2024 RESSURIST documented in this encounter Plan of Treatment Not on file documented as of this encounter Visit Diagnoses Not on filedocumented in this encounter Care Teams Terrazzo Worker Relationship Specialty Start Date End Date None Reported, Pcp PCP - General Family Medicine 12/21/24 documented as of this encounter
--- OUTSIDE RECORDS SUMMARY | 2025-01-05 16:58 | XMS_ITS | Encounter Summary ---
Author Organization [facility] Address [address] [place] [address] Care Team Providers Care Claim Administrator Name Role Phone None Reported, Pcp Primary Care Provider Unavail able Encounter Details Date Type Department Care Team (Latest Contact Info) Description 12/23/2024 Clinical Communication Division of Gastroenterology in [place], [place] [address] [place] [address] Ambika Nguyễn M.D. [address] [place] [address] Social History Tobacco Use Types Packs/Day Years Used Date Smoking Tobacco: Former Cigarettes Q uit: 2016 Smokeless Tobacco: Never Alcohol Use Standard Drinks/Week Comments Yes 21 (1 standard drink = 0.6 oz pu re alcohol) [facility] Utilities Answer Date Recorded In the past 12 months has [employer], gas, oil, or water [employer] threatened to shut off services in your [...] your living situation today? 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
--- OUTSIDE RECORDS SUMMARY | 2025-01-05 16:58 | XMS_ITS | Encounter Summary ---
Author Organization [facility] Address [address] [place] [address] Care Team Providers Care Media Relations Manager Name Role Phone None Reported, Pcp Primary Care Provider Unavail able Encounter Details Date Type Department Care Team (Latest Contact Info) Description 12/21/2024 Intake [facility] Social History Tobacco Use Types Packs/Day Years Used Date Smoking Tobacco: Former Cigarettes Q uit: 2016 Smokeless Tobacco: Never Alcohol Use Standard Drinks/Week Comments Yes 21 (1 standard drink = 0.6 oz pu re alcohol) [facility] Utilities Answer Date Recorded In the past 12 months has e [employer], gas, oil, or water [employer] threatened to shut off services in your [...] your living situation today? I have a 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 No 12/21/2024 9:40 PM HIGH SCHOOL ASSISTANT FOOTBALL COACH Ethan Hauser, R.N. Within the last year, have y ou been afraid of your partner or ex-partner? No 12/21/2024 9:40 PM HIGH SCHOOL ASSISTANT FOOTBALL COACH January Hauser , R.N. Within the last year, have y ou been raped or forced to have any kind of sexual activity by your partner or ex-partner? No 12/21/2024 9:40 PM HIGH SCHOOL ASSISTANT FOOTBALL COACH Ginger Hauser, R.N. Within the last year, have y ou been kicked, hit, slapped, or otherwise physically hurt by your partner or ex-partner? No 12/21/2024 9:40 PM Ginger Leiva, R.N. documented as of this encounter Plan of Treatment Not on file documented as of this encounter Visit Diagnoses Not on filedocumented in this encounter Care Teams Media Relations Manager Relationship Specialty Start Date End Date None Reported, Pcp PCP - General Family Medicine 12/21/24 documented as of this encounter
--- OUTSIDE RECORDS SUMMARY | 2025-01-05 16:58 | XMS_ITS | Encounter Summary ---
Author Organization [facility] Address [address] [place] [id number] Care Team Providers Care Pmp Name Role Phone None Reported, Pcp Primary Care Provider Unavail able Encounter Details Date Type Department Care Team (Latest Contact Info) Description 12/21/2024 7:57 PM SKILLS TRAINER - 12/29/2024 5:52 PM SKILLS TRAINER Hospital Encounter [facility], [facility], [facility], Third Floor [address] [place] [phone] Bismark Bentley M.D. [address] [place] [phone] Shaq Solano M.D. [address] [place] [phone] Candidiasis (Primary Dx); Malignant Neoplasm Of Lung [...] Recorded In the past 12 months has [employer] gas, oil, or water [employer] threatened to shut off services in your [...] your living situation today? I have a [facility] place to live 12/21/2024 Sex and Gender Information Value Date Recorded Sex Assigned at Male 07/11/2024 2:15 PM CDT Legal Sex Male 9:12 AM SKILLS TRAINER Gender Identity Male 07/11/2024 2:15 PM CDT Sexual Orientation Straight 07/11/2024 2: 15 PM CDT documented as of this encounter Last Filed Vital Signs Vital Sign Reading Time Taken Comments Blood Pressure 103/56 12/29/2024 4:35 PM SKILLS TRAINER Pulse 71 12/29/2024 4:35 PM SKILLS TRAINER Temperature 36.4 C (97.5 F) 12/29/2024 4:35 PM SKILLS TRAINER Respiratory Rate 18 12/29/2024 4:35 PM SKILLS TRAINER Oxygen Saturation 98% 12/29/2024 4:35 PM SKILLS TRAINER Inhaled Oxygen Concentration - - Weight 60 kg (132 lb 4.4 oz) 12/29/2024 5:00 AM SKILLS TRAINER Height 162.6 cm (5' 4.02) 12/28/2024 10:26 AM C Body Mass Index 22.69 12/28/2024 10:26 AM SKILLS TRAINER documented in this encounter Functional Status * Intimate Partner Violence Question Answer Date of Assessment Author Within the last year, have y ou been humiliated or emotionally abused in other ways by your partner or ex-partner? No 12/21/2024 9:40 PM SKILLS TRAINER Ethan Hauser, R.N. Within the last year, have y ou been afraid of your partner or ex-partner? No 12/21/2024 9:40 PM SKILLS TRAINER January Hauser R.N. Within the last year, have y ou been raped or forced to have any kind of sexual activity by your partner or ex-partner? No 12/21/2024 9:40 PM SKILLS TRAINER Ginger Hauser R.N. Within the last year, have y ou been kicked, hit, slapped, or otherwise physically hurt by your partner or ex-partner? No 12/21/2024 9:40 PM SKILLS TRAINER Ginger Hauser R.N. documented as of this encounter Discharge Summaries * Yudi Motley M.D. - 12/29/2024 1:07 PM CST DISCHARGE SUMMARY BRIEF OVERVIEW Hospital: [facility] Discharge Provider: Shaq Solano M.D. Primary Team: [facility] Gastroenterology B Primary Care Providers: None Reported, [...] 120 mg daily until follow up with [facility] Oncology to determine tapering plan Bactrim 1 tablet daily Stop taking: Budesonide 9 mg daily until follow up with [facility] Oncology Please do not take loperamide (Imodium) [facility] Please repeat labs, including BMP, Mag, [...] a PMHx of HTN, HLD, CAD (c/b [place], s/p PCI), carotidartery stenosis (s/p endarterectomy), PAD, BPH (on tamsulosin), small cell lung cancer (s/p chemo, radiation, and on immunotherapy w/ alemtuzumab) and 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 [...] He was seen by Dr. Martinez at [facility] as an outpatient on 07/07/2024. He subsequently [...] were provided to the patient and caregiver(s). LS TRAINER LS TRAINER documented in this encounter Discharge Instructions * Discharge Instructions* Paulette Sarah M.D., M.S. - 12/22/2024 7:29 AM SKILLS TRAINER You were discharged from the [facility] Gastroenterology B Service. Please identify this service name if you call with questions after hospitalization. MEDICATION CHANGES Please take all medications as previously prescribed unless otherwise stated below. STARTED: Loperamide 2 mg after loose bowel movements as needed CHANGED: None STOPPED: Please do not take the budesonide for the time being. FOR PATIENT We will contact your electric motor winders assembler with your biopsy results. You will be contacted regarding primary care follow-up. Gastroenterology appointment on 01/11. Please do not take the budesonide for the time being. FOR PCP Please obtain BMP to evaluate for any electrolyte abnormalities in the setting of persistent diarrhea. LS TRAINER LS TRAINER LS TRAINER LS TRAINER LS TRAINER * Attachments The following attachments cannot be sent through Care Everywhere. * Loperamide (By mouth) ([place]) * [facility] * Fluconazole (By mouth) ([place]) * Prednisone (By mouth) ([place]) * Sulfamethoxazole/Trimethoprim (By mouth) ([place]) documented in this encounter Medications at Time [...] esophageal candidiasis. 9 tablet 12/29/2024 5:38 PM SKILLS TRAINER 12/30/2024 5 folic acid 1 mg tablet Take 1 tablet by mouth daily. 05/17/2015 metoprolol succinate (TOPROL-XL) 25 mg 24 hr tablet Take 25 mg by mouth daily. 08/07/2016 multivitamin tablet Take 1 tablet by mouth daily. 08/02/2016 nitroglycerin (NITROSTAT) 0.[address] 1 tablet under the tongue as needed. 08/02/2016 omega 4-ivd-twd-fish oil (fish oil) 1,000 mg (120 mg-180 [...] by mouth daily. Please follow up with [place] [facility]CI team for further tapering details. 60 tablet 12/29/2024 5:38 PM SKILLS TRAINER 12/30/2024 5 sulfamethoxazole-tr imethoprim (Bactrim) 400-80 mg per tabletIndications:P rophylaxis, medical Take 1 tablet by mouth daily Indications: Prophylaxis, medical. Please follow up with Oncology team. 30 tablet 12/29/2024 5:38 PM SKILLS TRAINER 12/30/2024 5 documented as of this encounter Progress Notes * Shaq Solano M.D. - 12/29/2024 10:42 AM CST Inpatient Progress Note 12/29/2024 Subjective: This is a supervisory note for Yudi Motlye MD. I have reviewed the available records, [...] improved creatinine. #5 Andrea esophagitis Brushings with NIEVES positive for andrea esophagitis. We will treat with a 2 week course of fluconazole. #6 Disposition He will be discharged today with outpatient follow up in the medical oncology ICI clinic. Dr. Anderson is the fellow during this patient's hospitalization. LS TRAINER * Yudi Motley M.D. 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 who is being transferred to [place] due to persistent diarrhea in setting of [...] clostridium difficile who is being transferred to [place] due to persistent diarrhea in s/o negative [...] # HTN # HLD # CAD (c/b [place], s/p PCI) # Carotic artery stenosis (s/p endarterectomy) # PAD # Lung cancer (SCLC) Continue PHYSICAL THERAPY INSTRUCTOR bASA twice weekly Continue PHYSICAL THERAPY INSTRUCTOR atorvastatin 40 mg daily Continue PHYSICAL THERAPY INSTRUCTOR fish oil Continue PHYSICAL THERAPY INSTRUCTOR metoprolol succinate 25 mg daily Continue PHYSICAL THERAPY INSTRUCTOR MVN, folic acid, thiamine, vitamin D supplements # BPH PHYSICAL THERAPY INSTRUCTOR tamsulosin 0.4 mg daily # GERD Continue PHYSICAL THERAPY INSTRUCTOR omeprazole for now Plan discussed with Design/Animation Instructor, Dr. Shaq Solano, who was present during crmup portions of the evaluation today on GI Team B. The senior staff consultant agrees with the above plan and/or procedures unless otherwise indicated in their note. Yudi Motley M.D. Internal Medicine PGY-2 LS TRAINER * Princess Villatoro D.T.R. - 12/28/2024 1:46 PM CST Clinical Nutrition: Initial Assessment RECOMMENDATIONS REQUIRING MD/PROVIDER ORDER No changes at this time; continue current nutrition orders For questions about patient's nutritional care please contact pager [phone] on weekdays or [phone] on weekends/holidays. NUTRITION ASSESSMENT: Mr. Castrejon is a 69 y.o. male who was admitted for Diarrhea - thought to be ICI colitis. Note history of small cell lung cancer.. Note history of HTN, HLD, CAD, OH and PVD. Requested to see patient for [...] He did note that for 1 week PHYSICAL THERAPY INSTRUCTOR he had lost weight and had a terrible appetite related to diarrhea.He notes that his usual weight is around 65 kg. No chewing or swallowing issues. ANTHROPOMETRICS: Height: 162.6 cm Admission Weight: 63 kg (12/21/2024) Current Weight: 59.5 kg BMI (Calculated): 22.5 kg/m?? ESTIMATED NEEDS: Total Calorie Needs: 9305-4380 calories/day Method to Estimate Energy Needs: kcal/kg (25-30 kcal/kg) Weight Used for Equation Calculations: 59.5 kg Total Protein Needs: 60 - 71 grams/day (Method to Estimate Protein Needs (g/kg): 1 - 1.2 gm/kg) Weight Used to Calculate Protein Needs (Kg): 59.5 kg Nutrition Diagnosis: Inadequate oral intake related to diarrhea 1 week PHYSICAL THERAPY INSTRUCTOR as evidenced by possible several pound weightloss 1 week PHYSICAL THERAPY INSTRUCTOR (await reweigh for confirmation) Nutrition Intervention: None needed Monitoring/Evaluation: Nutrition parameter to monitor: Meals/Supplement Intake, Weight Status LS TRAINER * Shaq Solano M.D. - 12/28/2024 1:32 [...] is the fellow during this patient's hospitalization. LS TRAINER * Kurt Shah Jr., M.D., M.B.A. - 12/28/2024 11:37 AM CST ONCOLOGY CONSULT SERVICE: PROGRESS NOTE Reason for consult: ICI colitis Local Oncologist: No care steaming machine operator to display [place] [facility](s): No care steaming machine operator to display SUBJECTIVE Events over 24 [...] Oncology Consults Oncall with any questions at [phone] (service pager). Lc 7A-7P, Robinson Cameron Design/Animation Instructor on Consult service Was this consult thought to be associated with ICI toxicity? Yes Was there an intervention related to an ICI toxicity recommended? Yes Kurt Shah Jr., M.D., M.B.A. LS TRAINER * Faviola Caraballo M.D. 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 who is being transferred to [place] due to persistent diarrhea in setting of [...] clostridium difficile who is being transferred to [place] due to persistent diarrhea in s/o negative [...] # HTN # HLD # CAD (c/b [place], s/p PCI) # Carotic artery stenosis (s/p endarterectomy) # PAD # Lung cancer (SCLC) Continue PHYSICAL THERAPY INSTRUCTOR bASA twice weekly Continue PHYSICAL THERAPY INSTRUCTOR atorvastatin 40 mg daily Continue PHYSICAL THERAPY INSTRUCTOR fish oil Continue PHYSICAL THERAPY INSTRUCTOR metoprolol succinate 25 mg daily Continue PHYSICAL THERAPY INSTRUCTOR MVN, folic acid, thiamine, vitamin D supplements # BPH PHYSICAL THERAPY INSTRUCTOR tamsulosin 0.4 mg daily # GERD Continue PHYSICAL THERAPY INSTRUCTOR omeprazole for now Plan discussed with Design/Animation Instructor, Dr. Shaq Solano, who was present during crump portions of the evaluation today on GI Team B. The senior staff consultant agrees with the above plan and/or procedures unless otherwise indicated in their note. Faviola Caraballo M.D. Internal Medicine PGY-2 LS TRAINER * Samra Layne M.D. - 12/27/2024 9:41 AM CST ONCOLOGY CONSULT SERVICE: PROGRESS NOTE Reason for consult: ICI colitis Local Oncologist: Dr. Nascimento [facility] Oncologist(s): No care steaming machine operator to display SUBJECTIVE Events over 24 [...] Oncology Consults Oncall with any questions at [phone] (service pager). M-F 7A-7P, [facility] Design/Animation Instructor on Consult service Was this consult thought to be associated with ICI toxicity? Yes Was there an intervention related to an ICI toxicity recommended? Yes LS TRAINER * Shaq Solano M.D. - 12/27/2024 9:30 [...] is the fellow during this patient's hospitalization. LS TRAINER LS TRAINER * Yudi Motley M.D. 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 who is being transferred to [place] due to persistent diarrhea in setting of [...] clostridium difficile who is being transferred to [place] due to persistent diarrhea in s/o negative [...] # HTN # HLD # CAD (c/b [place], s/p PCI) # Carotic artery stenosis (s/p endarterectomy) # PAD # Lung cancer (SCLC) Continue PHYSICAL THERAPY INSTRUCTOR bASA twice weekly Continue PHYSICAL THERAPY INSTRUCTOR atorvastatin 40 mg daily Continue PHYSICAL THERAPY INSTRUCTOR fish oil Continue PHYSICAL THERAPY INSTRUCTOR metoprolol succinate 25 mg daily Continue PHYSICAL THERAPY INSTRUCTOR MVN, folic acid, thiamine, vitamin D supplements # BPH PHYSICAL THERAPY INSTRUCTOR tamsulosin 0.4 mg daily # GERD Continue PHYSICAL THERAPY INSTRUCTOR omeprazole for now Plan discussed with Design/Animation Instructor, Dr. Shaq Solano, who was present during crump portions of the evaluation today on GI Team B. The senior staff consultant agrees with the above plan and/or procedures unless otherwise indicated in their note. Yudi Motley M.D. Internal Medicine PGY-2 LS TRAINER LS TRAINER LS TRAINER LS TRAINER * Kurt Shah Jr., M.D., M.B.A. - 12/26/2024 12:38 PM CST ONCOLOGY CONSULT SERVICE: PROGRESS NOTE Reason for consult: ICI colitis Local Oncologist: No care steaming machine operator to display [facility] Oncologist(s): No care steaming machine operator to display SUBJECTIVE Events over 24 [...] Oncology Consults Oncall with any questions at [phone] (service pager). Lc 7A-7P, Robinson Cameron Design/Animation Instructor on Consult service Was this consult thought to be associated with ICI toxicity? Yes Was there an intervention related to an ICI toxicity recommended? Yes Kurt Shah Jr., M.D., M.B.A. LS TRAINER * Kaye Sheehan, Roxana., R.Ph., [facility] - 12/26/2024 11:10 AM CST Pharmacist [...] an ACEI/ARB. Kaye Sheehan Pharm.D., R.Ph., BCPS LS TRAINER * Shaq Solano M.D. - 12/26/2024 10:41 [...] course with anticipated possible dismissal Saturday. Dr. Anedrson is the fellow during this patient's hospitalization. LS TRAINER * Yudi Motley M.D. 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 who is being transferred to [place] due to persistent diarrhea in setting of [...] clostridium difficile who is being transferred to [place] due to persistent diarrhea in s/o negative [...] # HTN # HLD # CAD (c/b [place], s/p PCI) # Carotic artery stenosis (s/p endarterectomy) # PAD # Lung cancer (SCLC) Continue PHYSICAL THERAPY INSTRUCTOR bASA twice weekly Continue PHYSICAL THERAPY INSTRUCTOR atorvastatin 40 mg daily Continue PHYSICAL THERAPY INSTRUCTOR fish oil Continue PHYSICAL THERAPY INSTRUCTOR metoprolol succinate 25 mg daily Continue PHYSICAL THERAPY INSTRUCTOR MVN, folic acid, thiamine, vitamin D supplements # BPH PHYSICAL THERAPY INSTRUCTOR tamsulosin 0.4 mg daily # GERD Continue PHYSICAL THERAPY INSTRUCTOR omeprazole for now Plan discussed with Design/Animation Instructor, Dr. Shaq Solano, who was present during crump portions of the evaluation today on GI Team B. The senior staff consultant agrees with the above plan and/or procedures unless otherwise indicated in their note. Yudi Motley M.D. Internal Medicine PGY-2 LS TRAINER LS TRAINER LS TRAINER * Paulette Sarah M.D., M.S. - 12/25/2024 [...] clostridium difficile who is being transferred to [place] due to persistent diarrhea in s/o negative [...] current cancer treatment for two weeks. Calling [facility] they report that they patient has been [...] # HTN # HLD # CAD (c/b [place], s/p PCI) # Carotic artery stenosis (s/p endarterectomy) # PAD # Lung cancer (SCLC) Continue PHYSICAL THERAPY INSTRUCTOR bASA twice weekly Continue PHYSICAL THERAPY INSTRUCTOR atorvastatin 40 mg daily Continue PHYSICAL THERAPY INSTRUCTOR fish oil Continue PHYSICAL THERAPY INSTRUCTOR metoprolol succinate 25 mg daily Continue PHYSICAL THERAPY INSTRUCTOR MVN, folic acid, thiamine, vitamin D supplements # BPH PHYSICAL THERAPY INSTRUCTOR tamsulosin 0.4 mg daily # GERD Continue PHYSICAL THERAPY INSTRUCTOR omeprazole for now Plan discussed with Design/Animation Instructor, Bismark Bentley M.D., who was present during crump portions of the evaluation today on GI Team B. The senior staff consultant agrees with the above plan and/or procedures unless otherwise indicated in their note. LS TRAINER * Bismark Bentley M.D. - 12/25/2024 10:40 [...] He will follow upwith Dr. Sergei Martinez. LS TRAINER LS TRAINER * Bismark Bentley M.D. - 12/24/2024 10:55 [...] a plannedcolonoscopy and upper endoscopy this afternoon. LS TRAINER LS TRAINER * Paulette Sarah M.D., M.S. - 12/24/2024 7:13 AM [...] clostridium difficile who is being transferred to [place] due to persistent diarrhea in s/o negative [...] current cancer treatment for two weeks. Calling [facility] they report that they patient has been [...] # HTN # HLD # CAD (c/b [place], s/p PCI) # Carotic artery stenosis (s/p endarterectomy) # PAD # Lung cancer (SCLC) Continue PHYSICAL THERAPY INSTRUCTOR bASA twice weekly Continue PHYSICAL THERAPY INSTRUCTOR atorvastatin 40 mg daily Continue PHYSICAL THERAPY INSTRUCTOR fish oil Continue PHYSICAL THERAPY INSTRUCTOR metoprolol succinate 25 mg daily Continue PHYSICAL THERAPY INSTRUCTOR MVN, folic acid, thiamine, vitamin D supplements # BPH PHYSICAL THERAPY INSTRUCTOR tamsulosin 0.4 mg daily # GERD Continue PHYSICAL THERAPY INSTRUCTOR omeprazole for now Plan discussed with Design/Animation Instructor, Bismark Bentley M.D., who was present during crump portions of the evaluation today on GI Team B. The senior staff consultant agrees with the above plan and/or procedures unless otherwise indicated in their note. LS TRAINER * Bismark Bentley M.D. - 12/23/2024 10:51 [...] for planned colonoscopy and upper endoscopy tomorrow. LS TRAINER LS TRAINER * Pina Dorado M.D., M.P.H. - 12/23/2024 [...] clostridium difficile who is being transferred to [place] due to persistent diarrhea in s/o negative [...] current cancer treatment for two weeks. Calling [facility] they report that they patient has been [...] # HTN # HLD # CAD (c/b [place], s/p PCI) # Carotic artery stenosis (s/p endarterectomy) # PAD # Lung cancer (SCLC) Continue PHYSICAL THERAPY INSTRUCTOR bASA twice weekly Continue PHYSICAL THERAPY INSTRUCTOR atorvastatin 40 mg daily Continue PHYSICAL THERAPY INSTRUCTOR fish oil Continue PHYSICAL THERAPY INSTRUCTOR metoprolol succinate 25 mg daily Continue PHYSICAL THERAPY INSTRUCTOR MVN, folic acid, thiamine, vitamin D supplements # BPH PHYSICAL THERAPY INSTRUCTOR tamsulosin 0.4 mg daily # GERD Continue PHYSICAL THERAPY INSTRUCTOR omeprazole for now Plan discussed with Design/Animation Instructor, Bismark Bentley M.D., who was present during crump portions of the evaluation today on GI Team B. The senior staff consultant agrees with the above plan and/or procedures unless otherwise indicated in their note. Annel Dorado M.D., M.P.H. 12/23/2024 LS TRAINER * Melinda Dallas, Pharm.DFelicia, R.Ph., BCPS - [...] an ACEI/ARB. Simi Dallas Pharm.D., R.Ph., BCPS LS TRAINER * Pina Dorado M.D., M.P.H. - 12/22/2024 [...] clostridium difficile who is being transferred to [place] due to persistent diarrhea in s/o negative [...] current cancer treatment for two weeks. Calling [facility] they report that they patient has been [...] # HTN # HLD # CAD (c/b [place], s/p PCI) # Carotic artery stenosis (s/p endarterectomy) # PAD # Lung cancer (SCLC) Continue PHYSICAL THERAPY INSTRUCTOR bASA twice weekly Continue PHYSICAL THERAPY INSTRUCTOR atorvastatin 40 mg daily Continue PHYSICAL THERAPY INSTRUCTOR fish oil Continue PHYSICAL THERAPY INSTRUCTOR metoprolol succinate 25 mg daily Continue PHYSICAL THERAPY INSTRUCTOR MVN, folic acid, thiamine, vitamin D supplements # BPH PHYSICAL THERAPY INSTRUCTOR tamsulosin 0.4 mg daily # GERD Continue PHYSICAL THERAPY INSTRUCTOR omeprazole for now Plan discussed with Design/Animation Instructor, Bismark Bentley M.D., who was present during crump portions of the evaluation today on GI Team B. The senior staff consultant agrees with the above plan and/or procedures unless otherwise indicated in their note. Annel Dorado M.D., M.P.H. 12/22/2024 LS TRAINER * Mago Bowling, Pharm.D., R.Ph., [facility] - 12/21/2024 9:01 PM CST Images from the original note were not included. Admission Medication History Note Adherence issues: Unable to assess Medication list source: Patient via telephone + pharmacy dispense records in [facility] Medication related information: - Patient stated that he self-manages all medications and read off a list of his meds from his cellphone-- most all RX med names and doses matched current med list and recent fill history. - He stated he was at OSH ([facility]) for ~4 days before transferring here so unsure whenLDAs were (no OSH records showing up in [facility]). He noted that OSH started 3 new [...] tablet under the tongue as needed. omega 7-wha-xov-fish oil (fish oil) 1,000 mg (120 mg-180 [...] -- Take 1 tablet by mouth daily. LS TRAINER LS TRAINER documented in this encounter H&P Notes * [...] as colonoscopy with colon and TI biopsies. LS TRAINER LS TRAINER * Justyn Torrez M.D. - 12/21/2024 8:00 PM CST RST Gastroenterology B ADMISSION NOTE SUBJECTIVE CHIEF COMPLAINT Profuse watery diarrhea for 2 weeks HISTORY OF PRESENT ILLNESS Mr. Cr Castrejon is a 69 y.o. 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 [...] daily. He consulted with Dr. Martinez at [facility] as an outpatient on 07/07/2024. He subsequently [...] use. Otherwie d He initially presented to [facility], was there for a few days before being transferred to [facility]. We don't have records, but given report of an [facility] and negative C. Diff testing there. They were giving IV fluids and loperamide (unknown dose and frequency) which did not seem to be helping. Other history HTN Used to be on anti-hypertensives, now has lower BP since cancer treatment HLD On atorvastatin 40 mg daily CAD c/b [place] in 1982 and 2012 (4 stents placed) [...] pattern On review of paper records from [place] Report of a-fib due to irregularity on [...] Medical History: Diagnosis Date Arthritis Atherosclerosis Of [place] Arteries Of Extremities With Intermittent Claudication Bilateral [...] tablet under the tongue as needed. omega 1-dof-bnz-fish oil (fish oil) 1,000 mg (120 mg-180 [...] hours. Gas No results for input(s): PHART, MOV0YYP, PO2ART, PHVEN, JGV2TXI in the last 720 hours. Cards Recent Labs 12/21/242058 LACTATE 1.0 Coag No results for input(s): APTT, PT, INR, FIBRINOGEN in the last 720 hours. Other No results for input(s): LIPASE, AMMONIA in the last 720 hours. Endo Recent Labs 12/21/242052 TSH 1.4 Lipid No results for input(s): LDLCALC, HDL, CHOL, TRIG, LIPA in the last 57563 hours. Iron Recent Labs 08/03/16 1634 08/03/16 0054 IRON 164 H -- TIBC 159 L -- LABIRON >90 H -- FERRITIN -- 335 DIAGNOSTICS I have reviewed the diagnostics since admission. ASSESSMENT / PLAN Mr. Castrejon is a 69 y.o. male with a PMHx of HTN, HLD, CAD (c/b OH, s/p PCI), carotid artery stenosis (s/p endarterectomy), [...] for biopsy (i.e. for ICI enterocolitis) Continue PHYSICAL THERAPY INSTRUCTOR budesonide 9 mg daily for now Tylenol [...] # HTN # HLD # CAD (c/b [place], s/p PCI) # Carotic artery stenosis (s/p endarterectomy) # PAD # Lung cancer (SCLC) Continue PHYSICAL THERAPY INSTRUCTOR bASA twice weekly Continue PHYSICAL THERAPY INSTRUCTOR atorvastatin 40 mg daily Continue PHYSICAL THERAPY INSTRUCTOR fish oil Continue PHYSICAL THERAPY INSTRUCTOR metoprolol succinate 25 mg daily Continue PHYSICAL THERAPY INSTRUCTOR MVN, folic acid, thiamine, vitamin D supplements # BPH PHYSICAL THERAPY INSTRUCTOR tamsulosin 0.4 mg daily # GERD Continue PHYSICAL THERAPY INSTRUCTOR omeprazole for now Diet: Regular VTE prophylaxis: [...] VASECTOMY [2] No family history on file. LS TRAINER LS TRAINER LS TRAINER LS TRAINER documented in this encounter Consult Notes * Ann Marie Jo M.D., M.P.H. - 12/25/2024 3:30 PM CSTAssociated Order(s): IP CONSULT TO ONCOLOGY ONCOLOGY CONSULT NOTE Primary Service: RST Gastroenterology B Local Oncologist: [facility] Dr. Maci Nascimento [facility] Oncologist(s): None Reason for consult: ICI colitis Current therapy: Atezolizumab SUBJECTIVE HISTORY OF PRESENT ILLNESS Mr. Cr Castrejon is a 69 y.o. 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 His oncology history is noted below. For the past two weeks, he has had profuse stool burden and was transferred to [place] from [place]. He has had about 20 stools a [...] Carboplatinum/etoposide/atezolizumab under the care of Dr. Nascimento, [facility] 08/21/2023 Critical Imaging FDG [...] follow-up indicated (Onc Consult staff will message [facility] Medicine ,12, [facility]c [facility]osp [facility] for this oncology-specific followup): A. Indication: TBD B. Clinic/Physician: TBD C. Testing: TBD Communication: Treatment plan reviewed with Mr. Castrejon, who expressed understanding. All questionsanswered to patient's satisfaction. Staffing: This case was staffed with Dr. Layne who is in agreement with this plan. Paging: Please page Oncology Consults Oncall with any questions at [phone] (service pager). Lc Thomas-Robinson Tyler Design/Animation Instructor on Consult service Ann Marie Jo M.D., M.P.H. Cosigned by Samra Layne M.D. at 12/26/2024 5:46 PM SKILLS TRAINER LS TRAINER LS TRAINER Associated attestation - Samra Layne M.D. - 12/26/2024 5:46 PM SKILLS TRAINER I saw and evaluated the patient with [...] Oncology Consults Oncall with any questions at [phone] (service pager). Lc Thomas-TommyPRobinson Design/Animation Instructor on Consult service Ann Marie Jo M.D., M.P.H. Cosigned by Samra Layne M.D. at 12/23/2024 1:24 PM SKILLS TRAINER LS TRAINER LS TRAINER LS TRAINER documented in this encounter Nursing Notes * Diaz Norris R.N. - 12/29/2024 4:22 PM CST 12/29/2024, 5:30 PM SKILLS TRAINER Cr Castrejon discharged to home at 5:30 [...] by: Lana Norris R.N. 12/29/24 5:32 PM SKILLS TRAINER LS TRAINER * Kurt Shah Jr., M.D., M.B.A. - 12/29/2024 2:55 PM CST MEDICAL ONCOLOGY CONSULT CARE COORDINATION/SIGN-OFF NOTE PRIMARY SERVICE: [facility] Gastroenterology B LOCAL ONCOLOGIST: No care steaming machine operator to display [facility] Oncologist(s): No care steaming machine operator to display REASON FOR CONSULT: ICI [...] team on 12/31.(Oncology Consult staff to message [facility] Medicine , [facility] arrange for Oncology specific followup). He can be discharged if there is no rebound worsening of his colitis upon transitioning to po steroids. We will sign off at this time. Please contact the Oncology Consult service if any further questionsor concerns arise at [phone] (service pager). Saturday through Saturday 7:00 a.m. to 7:00 p.m. Saturday to Saturday Design/Animation Instructor on Consult service. Was this consult thought to be associated with ICI toxicity? Yes. Was there an intervention related to an ICI toxicity recommended? Yes. Kurt Shah Jr., M.D., M.B.A. LS TRAINER * Lissy Saha R.N., [facility] - 12/29/2024 6:34 AM CST Shift Goals: [...] remains free from fall/fall injury Outcome: Progressing LS TRAINER * Carmezna Rodrigues R.N. - 12/28/2024 3:26 AM CST [...] Notable swelling in legs remains. Fluids completed. LS TRAINER * Carmenza Rodrigues R.N. - 12/27/2024 4:39 [...] Reports that bowel movements have decreased infrequency. LS TRAINER * Jayda Crystal R.N. - 12/26/2024 7:48 PM CST Shift Goals: Clinical Goals for the Shift: patient will DC today to [facility] Identify possible barriers to meeting goals/advancing plan of care: disease process End of Shift Summary: Patient did not DC to [facility] on Saturday. Patient was started on steroids. Patient had reduced urine output and increased edema. SX was notified.Patient will DC to [facility] on Saturday. Problem: PAIN - ADULT Goal: PT VERBALIZES/DEMONSTRATES ADEQUATE COMFORT LEVEL OR BASELINE Outcome: Progressing Jayda Hills R.N. LS TRAINER * Carmenza Rodrigues R.N. - 12/26/2024 3:07 AM CST Problem: [...] the bathroom. Oriented and call light appropriate. LS TRAINER * Gloria Seals R.N. - 12/23/2024 9:09 [...] Safety rounds completed; call light within reach. LS TRAINER * Luis Shane R.N. - 12/22/2024 5:19 [...] remains free from fall/fall injury Outcome: Progressing LS TRAINER documented in this encounter Miscellaneous Notes * Hospital Course - Yudi Motley M.D. - 12/23/2024 10:57 AM CST Mr. Cr Castrejon is a 69 y.o. 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 [...] He was seen by Dr. Martinez at [facility] as an outpatient on 07/07/2024. He subsequently [...] was made by the oncology consult service. LS TRAINER LS TRAINER LS TRAINER LS TRAINER LS TRAINER LS TRAINER LS TRAINER LS TRAINER LS TRAINER LS TRAINER LS TRAINER LS TRAINER LS TRAINER documented in this encounter Plan of Treatment Pending Results Name Type Priority Associated Diagnoses Date /Time ECG 12 Lead ECG Routine 12/21/2024 11 :48 PM SKILLS TRAINER Fungal Culture, Routine Microbiology Routine 12/24/2024 2:19 PM SKILLS TRAINER documented as of this encounter Procedures Procedure Name Priority Date/Time Associated Diagnosis Comments RENAL FUNCTION PANEL, S Routine 12/29/2024 7:25 AM SKILLS TRAINER CBC WITH DIFFERENTIAL, B Routine 12/29/2024 7:25 AM SKILLS TRAINER MAGNESIUM, S Routine 12/29/2024 7:25 AM SKILLS TRAINER BASIC METABOLIC PANEL, S/P Timed 12/28/2024 4:08 PM SKILLS TRAINER RENAL FUNCTION PANEL, S Routine 12/28/2024 5:52 AM SKILLS TRAINER QUANTIFERON-TB GOLD PLUS, B Routine 12/28/2024 5:52 AM SKILLS TRAINER CBC WITH DIFFERENTIAL, B Routine 12/28/2024 5:52 AM SKILLS TRAINER MAGNESIUM, S Routine 12/28/2024 5:52 AM SKILLS TRAINER RENAL FUNCTION PANEL, S Routine 12/27/2024 8:11 AM SKILLS TRAINER CBC WITH DIFFERENTIAL, B Routine 12/27/2024 8:11 AM SKILLS TRAINER MAGNESIUM, S Routine 12/27/2024 8:11 AM SKILLS TRAINER ECG Routine 12/26/2024 12:55 PM SKILLS TRAINER RENAL FUNCTION PANEL, S Routine 12/26/2024 9:31 AM SKILLS TRAINER HBC TOTAL AB, SERUM Routine 12/26/2024 9:31 AM SKILLS TRAINER HBS ANTIBODY, SERUM Routine 12/26/2024 9:31 AM SKILLS TRAINER HEPATITIS B SURFACE ANTIGEN Routine 12/26/2024 9:31 AM SKILLS TRAINER CBC WITH DIFFERENTIAL, B Routine 12/26/2024 9:31 AM SKILLS TRAINER MAGNESIUM, S Routine 12/26/2024 9:31 AM SKILLS TRAINER RENAL FUNCTION PANEL, S Routine 12/25/2024 6:42 AM SKILLS TRAINER CBC WITH DIFFERENTIAL, B Routine 12/25/2024 6:42 AM SKILLS TRAINER MAGNESIUM, S Routine 12/25/2024 6:42 AM SKILLS TRAINER FUNGAL SMEAR Routine 12/24/2024 2:19 PM SKILLS TRAINER FUNGAL CULTURE, ROUTINE Routine 12/24/2024 2:19 PM SKILLS TRAINER SURGICAL PATHOLOGY Routine 12/24/2024 2: 08 PM SKILLS TRAINER COLONOSCOPY Routine 12/24/2024 1:52 PM SKILLS TRAINER COLONOSCOPY Routine 12/24/2024 1:52 PM SKILLS TRAINER UPPER GI ENDOSCOPY Routine 12/24/2024 1: 52 PM SKILLS TRAINER EGD (ESOPHAGEALGASTROD UODENOSCOPY) Routine 12/24/2024 1:52 PM SKILLS TRAINER RENAL FUNCTION PANEL, S Routine 12/24/2024 8:41 AM SKILLS TRAINER CBC WITH DIFFERENTIAL, B Routine 12/24/2024 8:41 AM SKILLS TRAINER MAGNESIUM, S Routine 12/24/2024 8:41 AM SKILLS TRAINER RENAL FUNCTION PANEL, S Routine 12/23/2024 6:54 AM SKILLS TRAINER CBC WITH DIFFERENTIAL, B Routine 12/23/2024 6:54 AM SKILLS TRAINER MAGNESIUM, S Routine 12/23/2024 6:54 AM SKILLS TRAINER RENAL FUNCTION PANEL, S Routine 12/22/2024 10:45 AM SKILLS TRAINER CBC WITH DIFFERENTIAL, B Routine 12/22/2024 10:45 AM SKILLS TRAINER MAGNESIUM, S Routine 12/22/2024 10:45 AM SKILLS TRAINER GI PATHOGEN PANEL, PCR, F Routine 12/22/2024 12:48 AM SKILLS TRAINER DX ABDOMEN PORTABLE ANTERIOR POSTERIOR 1 VIEW RAD - Routine (most inpatients and all outpatients) 12/21/2024 11:59 PM SKILLS TRAINER ECG Routine 12/21/2024 11:48 PM SKILLS TRAINER BACTERIA / ANDREA CULTURE, BLOOD STAT 12/21/2024 9:12 PM SKILLS TRAINER HEPATIC FUNCTION PANEL, S STAT 12/21/2024 9:00 PM SKILLS TRAINER BACTERIA / ANDERA CULTURE, BLOOD STAT 12/21/2024 9:00 PM SKILLS TRAINER BASIC METABOLIC PANEL, S/P STAT 12/21/2024 9:00 PM SKILLS TRAINER LACTATE FOR SEPSIS WITH REFLEX STAT 12/21/2024 8:59 PM SKILLS TRAINER CBC WITH DIFFERENTIAL, B STAT 12/21/2024 8:59 PM SKILLS TRAINER THYROID FUNCTION CASCADE, S Routine 12/21/2024 8:53 PM SKILLS TRAINER documented in this encounter Results * (ABNORMAL) Renal Function Panel (12/29/2024 7:25 AM SKILLS TRAINER) Potassium, S 4.7 3.6 - 5.2 mmol/L 12/29/2024 8:41 AM SKILLS TRAINER DTL Sodium, S 138 135 - 145 mmol/L 12/29/2024 8:41 AM SKILLS TRAINER DTL Chloride, S 105 98 - 107 mmol/L 12/29/2024 8:41 AM SKILLS TRAINER DTL Bicarbonate, S 25 22 - 29 mmol/L 12/29/2024 8:41 AM SKILLS TRAINER DTL Anion Gap 8 7 - 15 12/29/2024 8:41 AM SKILLS TRAINER DTL BUN (Blood Urea Nitrogen), S 20 8 - 24 mg/dL 12/29/2024 8:41 AM SKILLS TRAINER DTL Creatinine 1.30 0.74 - 1.35 mg/dL 12/29/2024 8:41 AM SKILLS TRAINER DTL Estimated GFR (eGFR) 59(L) >=60 mL/min/BSA 12/29/2024 8:41 AM SKILLS TRAINER DTL Comment: Estimated GFR calculated using the 2020 CKD_EPI creatinine equation. Calcium, Total, S 7.9(L) 8.8 - 10.2 mg/dL 12/29/2024 8:41 AM SKILLS TRAINER DTL Glucose, S 131 70 - 140 mg/dL 12/29/2024 8:41 AM SKILLS TRAINER DTL Albumin, S 2.9(L) 3.5 - 5.0 g/dL 12/29/2024 8:41 AM SKILLS TRAINER DTL Phosphorus (Inorganic), S 2.1(L) 2.5 - 4.5 mg/dL 12/29/2024 8:41 AM SKILLS TRAINER DTL Blood (Blood, Venous) 12/29/2024 7:25 AM SKILLS TRAINER 12/29/2024 8:03 AM SKILLS TRAINER us Justyn Torrez M.D. LAB BLOOD ADD-ON Final Result [facility] [address] [place] [address], [facility] [address] [place] [address] * Magnesium (12/29/2024 7:25 AM SKILLS TRAINER) Magnesium, S 1.7 1.7 - 2.3 mg/dL 12/29/2024 8:41 AM SKILLS TRAINER DTL Blood (Blood, Venous) 12/29/2024 7:25 AM SKILLS TRAINER 12/29/2024 8:03 AM SKILLS TRAINER us Justyn Torrez M.D. LAB BLOOD ADD-ON Final Result [facility] [address] [place] [address], [facility] DTL [facility] [address] [place] [address] * (ABNORMAL) CBC with Differential, Blood (12/29/2024 7:25 AM SKILLS TRAINER) Hemoglobin 9.8(L) 13.2 - 16.6 g/dL 12/29/2024 8:16 AM SKILLS TRAINER DTL Hematocrit 29.0(L) 38.3 - 48.6 % 12/29/2024 8:16 AM SKILLS TRAINER DTL Erythrocytes 2.96(L) 4.35 - 5.65 x10(12)/L 12/29/2024 8:16 AM SKILLS TRAINER DTL MCV 98.0(H) 78.2 - 97.9 fL 12/29/2024 8:16 AM SKILLS TRAINER DTL RBC Distrib Width 14.1 11.8 - 14.5 % 12/29/2024 8:16 AM SKILLS TRAINER DTL Platelet Count 162 135 - 317 x10(9)/L 12/29/2024 8:16 AM SKILLS TRAINER DTL Leukocytes 7.0 3.4 - 9.6 x10(9)/L 12/29/2024 8:16 AM SKILLS TRAINER DTL Neutrophils 6.34 1.56 - 6.45 x10(9)/L 12/29/2024 8:16 AM SKILLS TRAINER DHPM Lymphocytes 0.43(L) 0.95 - 3.07 x10(9)/L 12/29/2024 8:16 AM SKILLS TRAINER DTL Monocytes 0.25(L) 0.26 - 0.81 x10(9)/L 12/29/2024 8:16 AM SKILLS TRAINER DTL Eosinophils <0.03 0.03 - 0.48 x10(9)/L 12/29/2024 8:16 AM SKILLS TRAINER DTL Basophils <0.03 0.01 - 0.08 x10(9)/L 12/29/2024 8:16 AM SKILLS TRAINER DTL Blood (Blood, Venous) 12/29/2024 7:25 AM SKILLS TRAINER 12/29/2024 7:56 AM SKILLS TRAINER us Justyn Torrez M.D. LAB BLOOD ADD-ON Final Result Performing Organization Address [facility]/ZIP Co de Phone Number [facility] [address] [place] [address], [place] DTL [facility] [address] [place] [address] DHPM [facility] [address] [place] [address] * (ABNORMAL) Basic Metabolic Panel (12/28/2024 4:08 PM SKILLS TRAINER) Pathologist [facility] Potassium, S 3.7 3.6 - 5.2 mmol/L 12/28/2024 4:57 PM SKILLS TRAINER DTL Sodium, S 138 135 - 145 mmol/L 12/28/2024 4:57 PM SKILLS TRAINER DTL Chloride, S 104 98 - 107 mmol/L 12/28/2024 4:57 PM SKILLS TRAINER DTL Bicarbonate, S 24 22 - 29 mmol/L 12/28/2024 4:57 PM SKILLS TRAINER DTL Anion Gap 10 7 - 15 12/28/2024 4:57 PM SKILLS TRAINER DTL BUN (Blood Urea Nitrogen), S 15 8 - 24 mg/dL 12/28/2024 4:57 PM SKILLS TRAINER DTL Creatinine 1.34 0.74 - 1.35 mg/dL 12/28/2024 4:57 PM SKILLS TRAINER DTL Estimated GFR (eGFR) 57(L) >=60 mL/min/BSA 12/28/2024 4:57 PM SKILLS TRAINER DTL Comment: Estimated GFR calculated using the 2020 CKD_EPI creatinine equation. Calcium, Total, S 8.0(L) 8.8 - 10.2 mg/dL 12/28/2024 4:57 PM SKILLS TRAINER DTL Glucose, S 137 70 - 140 mg/dL 12/28/2024 4:57 PM SKILLS TRAINER DTL Blood (Blood, Venous) 12/28/2024 4:08 PM SKILLS TRAINER 12/28/2024 4:39 PM SKILLS TRAINER us Faviola Caraballo M.D. LAB BLOOD ADD-ON Final Result [facility] [address] [place] [address], [facility] DTL [facility] [address] [place] [address] * (ABNORMAL) Renal Function Panel (12/28/2024 5:52 AM SKILLS TRAINER) Potassium, S 3.4(L) 3.6 - 5.2 mmol/L 12/28/2024 6:49 AM SKILLS TRAINER DTL Sodium, S 139 135 - 145 mmol/L 12/28/2024 6:49 AM SKILLS TRAINER DTL Chloride, S 108(H) 98 - 107 mmol/L 12/28/2024 6:49 AM SKILLS TRAINER DTL Bicarbonate, S 23 22 - 29 mmol/L 12/28/2024 6:49 AM SKILLS TRAINER DTL Anion Gap 8 7 - 15 12/28/2024 6:49 AM SKILLS TRAINER DTL BUN (Blood Urea Nitrogen), S 11 8 - 24 mg/dL 12/28/2024 6:49 AM SKILLS TRAINER DTL Creatinine 1.18 0.74 - 1.35 mg/dL 12/28/2024 6:49 AM SKILLS TRAINER DTL Estimated GFR (eGFR) 66 >=60 mL/min/BSA 12/28/2024 6:49 AM SKILLS TRAINER DTL Comment: Estimated GFR calculated using the 2020 CKD_EPI creatinine equation. Calcium, Total, S 7.8(L) 8.8 - 10.2 mg/dL 12/28/2024 6:49 AM SKILLS TRAINER DTL Glucose, S 136 70 - 140 mg/dL 12/28/2024 6:49 AM SKILLS TRAINER DTL Albumin, S 2.7(L) 3.5 - 5.0 g/dL 12/28/2024 6:49 AM SKILLS TRAINER DTL Phosphorus (Inorganic), S 2.0(L) 2.5 - 4.5 mg/dL 12/28/2024 6:49 AM SKILLS TRAINER DTL Blood (Blood, Venous) 12/28/2024 5:52 AM SKILLS TRAINER 12/28/2024 6:25 AM SKILLS TRAINER us Justyn Torrez M.D. LAB BLOOD ADD-ON Final Result [facility] [address] [place] [address], [address] [address] * Magnesium (12/28/2024 5:52 AM SKILLS TRAINER) [facility] Magnesium, S 1.8 1.7 - 2.3 mg/dL 12/28/2024 6:49 AM SKILLS TRAINER DTL Blood (Blood, Venous) 12/28/2024 5:52 AM SKILLS TRAINER 12/28/2024 6:25 AM SKILLS TRAINER us Justyn Torrez M.D. LAB BLOOD ADD-ON Final Result Performing Organization Address [facility] Co de Phone Number [facility] [address] [place] [address], [address] [address] * (ABNORMAL) CBC with Differential, Blood (12/28/2024 5:52 AM SKILLS TRAINER) [facility] Hemoglobin 9.2(L) 13.2 - 16.6 g/dL 12/28/2024 6:26 AM SKILLS TRAINER DTL Hematocrit 28.2(L) 38.3 - 48.6 % 12/28/2024 6:26 AM SKILLS TRAINER DTL Erythrocytes 2.92(L) 4.35 - 5.65 x10(12)/L 12/28/2024 6:26 AM SKILLS TRAINER DTL MCV 96.6 78.2 - 97.9 fL 12/28/2024 6:26 AM SKILLS TRAINER DTL RBC Distrib Width 13.9 11.8 - 14.5 % 12/28/2024 6:26 AM SKILLS TRAINER DTL Platelet Count 150 135 - 317 x10(9)/L 12/28/2024 6:26 AM SKILLS TRAINER DTL Leukocytes 6.4 3.4 - 9.6 x10(9)/L 12/28/2024 6:26 AM SKILLS TRAINER DTL Neutrophils 5.87 1.56 - 6.45 x10(9)/L 12/28/2024 6:25 AM SKILLS TRAINER DHPM Lymphocytes 0.37(L) 0.95 - 3.07 x10(9)/L 12/28/2024 6:26 AM SKILLS TRAINER DTL Monocytes 0.11(L) 0.26 - 0.81 x10(9)/L 12/28/2024 6:26 AM SKILLS TRAINER DTL Eosinophils <0.03 0.03 - 0.48 x10(9)/L 12/28/2024 6:26 AM SKILLS TRAINER DTL Basophils <0.03 0.01 - 0.08 x10(9)/L 12/28/2024 6:26 AM SKILLS TRAINER DTL Blood (Blood, Venous) 12/28/2024 5:52 AM SKILLS TRAINER 12/28/2024 6:18 AM SKILLS TRAINER us Justyn Torrez M.D. LAB BLOOD ADD-ON Final Result [facility] [address] [place] [address], [facility] DTL [facility] [address] [place] [address] [facility] [address] [place] [address] * QuantiFERON-Tb Gold Plus, Blood (12/28/2024 5:52 AM SKILLS TRAINER) [facility] QuantiFERON-TB Gold Plus Result Negative Negative 12/29/2024 10:23 AM SKILLS TRAINER [facility] Comment: No interferon-gamma response to [...] Nil Result 0.02 IU/mL 12/29/2024 10:23 AM SKILLS TRAINER SDSC TB2 Ag minus Nil Result 0.01 IU/mL 12/29/2024 10:23 AM [facility] Mitogen minus Nil Result 0.72 IU/mL 12/29/2024 10:23 AM SKILLS TRAINER [facility] Nil Result 0.01 IU/mL 12/29/2024 10:23 AM [facility] Blood (Blood, Venous) 12/28/2024 5:52 AM SKILLS TRAINER 12/28/2024 8:15 AM SKILLS TRAINER Narrative [facility] - 12/29/2024 10:23 AM SKILLS TRAINER Specimen Information: Specimen ID: [id number] Specimen Type: Blood Specimen Collection Start Date: 12/28/2024 5:52 AM Specimen Received Date: 12/28/2024 8:15 AM Specimen ID: [id number] Specimen Type: Blood Specimen Collection Start Date: 12/28/2024 5:52 AM Specimen Received Date: 12/28/2024 8:15 AM Specimen ID: [id number] Specimen Type: Blood Specimen Collection Start Date: 12/28/2024 5:52 AM Specimen Received Date: 12/28/2024 8:15 AM Specimen ID: [id number] Specimen Type: Blood Specimen Collection Start Date: 12/28/2024 5:52 AM Specimen Received Date: 12/28/2024 8:15 AM Yudi Motley M.D. LAB MICROBIOLOGY - BLOOD ORD ERABLES Final Result [facility] [address] [place] [address] [facility] [address] [place] [address] * (ABNORMAL) Renal Function Panel (12/27/2024 8:11 AM SKILLS TRAINER) Potassium, S 3.5(L) 3.6 - 5.2 mmol/L 12/27/2024 9:55 AM SKILLS TRAINER DTL Sodium, S 139 135 - 145 mmol/L 12/27/2024 9:55 AM SKILLS TRAINER DTL Chloride, S 110(H) 98 - 107 mmol/L 12/27/2024 9:55 AM SKILLS TRAINER DTL Bicarbonate, S 17(L) 22 - 29 mmol/L 12/27/2024 9:55 AM SKILLS TRAINER DTL Anion Gap 12 7 - 15 12/27/2024 9:55 AM SKILLS TRAINER DTL BUN (Blood Urea Nitrogen), S 9 8 - 24 mg/dL 12/27/2024 9:55 AM SKILLS TRAINER DTL Creatinine 1.30 0.74 - 1.35 mg/dL 12/27/2024 9:55 AM SKILLS TRAINER DTL Estimated GFR (eGFR) 59(L) >=60 mL/min/BSA 12/27/2024 9:55 AM SKILLS TRAINER DTL Comment: Estimated GFR calculated using the 2020 CKD_EPI creatinine equation. Calcium, Total, S 7.9(L) 8.8 - 10.2 mg/dL 12/27/2024 9:55 AM SKILLS TRAINER DTL Glucose, S 141(H) 70 - 140 mg/dL 12/27/2024 9:55 AM SKILLS TRAINER DTL Albumin, S 3.0(L) 3.5 - 5.0 g/dL 12/27/2024 9:55 AM SKILLS TRAINER DTL Phosphorus (Inorganic), S 2.8 2.5 - 4.5 mg/dL 12/27/2024 9:55 AM SKILLS TRAINER DTL Blood (Blood, Venous) 12/27/2024 8:11 AM SKILLS TRAINER 12/27/2024 9:33 AM SKILLS TRAINER us Justyn Torrez M.D. LAB BLOOD ADD-ON Final Result [facility] [address] [place] [address], [facility] [address] [place] [address] * (ABNORMAL) Magnesium (12/27/2024 8:11 AM SKILLS TRAINER) Magnesium, S 1.6(L) 1.7 - 2.3 mg/dL 12/27/2024 10:20 AM SKILLS TRAINER DTL Blood (Blood, Venous) 12/27/2024 8:11 AM SKILLS TRAINER 12/27/2024 9:33 AM SKILLS TRAINER us Justyn Torrez M.D. LAB BLOOD ADD-ON Final Result [facility] [address] [place] [address], [facility] DTL [facility] [address] [place] [address] * (ABNORMAL) CBC with Differential, Blood (12/27/2024 8:11 AM SKILLS TRAINER) Hemoglobin 9.8(L) 13.2 - 16.6 g/dL 12/27/2024 9:24 AM SKILLS TRAINER DTL Hematocrit 30.5(L) 38.3 - 48.6 % 12/27/2024 9:24 AM SKILLS TRAINER DTL Erythrocytes 3.07(L) 4.35 - 5.65 x10(12)/L 12/27/2024 9:24 AM SKILLS TRAINER DTL MCV 99.3(H) 78.2 - 97.9 fL 12/27/2024 9:24 AM SKILLS TRAINER DTL RBC Distrib Width 14.2 11.8 - 14.5 % 12/27/2024 9:24 AM SKILLS TRAINER DTL Platelet Count 175 135 - 317 x10(9)/L 12/27/2024 9:24 AM SKILLS TRAINER DTL Leukocytes 7.4 3.4 - 9.6 x10(9)/L 12/27/2024 9:24 AM SKILLS TRAINER DTL Neutrophils 6.89(H) 1.56 - 6.45 x10(9)/L 12/27/2024 9:24 AM SKILLS TRAINER DHPM Lymphocytes 0.38(L) 0.95 - 3.07 x10(9)/L 12/27/2024 9:24 AM SKILLS TRAINER DTL Monocytes 0.11(L) 0.26 - 0.81 x10(9)/L 12/27/2024 9:24 AM SKILLS TRAINER DTL Eosinophils <0.03 0.03 - 0.48 x10(9)/L 12/27/2024 9:24 AM SKILLS TRAINER DTL Basophils <0.03 0.01 - 0.08 x10(9)/L 12/27/2024 9:24 AM SKILLS TRAINER DTL Blood (Blood, Venous) 12/27/2024 8:11 AM SKILLS TRAINER 12/27/2024 9:15 AM SKILLS TRAINER us Justyn Torrez M.D. LAB BLOOD ADD-ON Final Result Performing Organization Address [facility] de Phone Number [facility] [address] [place] [address], [place] DTL [facility] [address] [place] [address] DHPM [facility] [address] [place] [address] * ECG 12 Lead (12/26/2024 12:55 PM SKILLS TRAINER) Ventricular Rate ECG/Min 79 BPM MUSE MI Interval 132 ms MUSE QRSD Interval 86 ms MUSE QT Interval 384 ms MUSE QTC Interval 440 ms MUSE P [place] 27 degrees MUSE R [place] 32 degrees MUSE T Wave [place] 26 degrees MUSE 12/26/2024 12:5 5 PM SKILLS TRAINER 12/26/2024 12:59 PM SKILLS TRAINER Impressions MUSE - 12/26/2024 12:59 PM SKILLS TRAINER Normal sinus rhythm Normal ECG When compared with ECG of 21-Dec-2024 23:48, No significant change was found Reviewed by JERED García Narrative Procedure Note Justino Sosa M.D. - 12/26/2024 IMPRESSION: Normal sinus rhythm Normal ECG When compared with ECG of 21-Dec-2024 23:48, No significant change was found Reviewed by JERED García us Yudi Motley M.D. ECG ORDERABLES Final Result Performing Organization Address [facility] Co de Phone Number MUSE NA * HBs Antibody, Serum (12/26/2024 9:31 AM SKILLS TRAINER) HBs Antibody, S Negative 2:23 PM SKILLS TRAINER [facility] Comment: Patient is NOT immune to HBV infection. Consumption of high-dose biotin supplement within 12 hours of blood collection for this test can cause false-negative results. ----REFERENCE VALUE---- Unvaccinated: Negative Vaccinated: Positive HBs Antibody, Quantitative, S <3.5 mIU/mL 12/26/2024 2:23 PM SKILLS TRAINER [facility] Comment: ----REFERENCE VALUE---- Unvaccinated: <8.5 mIU/mL Vaccinated: >=11.5 mIU/mL Blood (Blood, Venous) 12/26/2024 9:31 AM SKILLS TRAINER 12/26/2024 12:27 PM SKILLS TRAINER Pina Dorado M.D., M.P.H. LAB MICROBIOLOGY - BLOOD ORDERABLES Final Result Performing Organization Address City/[facility]/ZIP Co de Phone Number [facility] [address] [place] [id number] [place] [address] [place] [address] * Hepatitis B Surface Antigen (12/26/2024 9:31 AM SKILLS TRAINER) HBs Antigen, S Negative Negative 12/26/2024 2:23 PM SKILLS TRAINER [facility] Blood (Blood, Venous) 12/26/2024 9:31 AM SKILLS TRAINER 12/26/2024 12:27 PM SKILLS TRAINER Pina Dorado M.D., M.P.H. LAB MICROBIOLOGY - BLOOD ORDERABLES Final Result Performing Organization Address [facility]/ZIP Co de Phone Number [facility] [address] [place] [address] [facility] [address] [place] [address] * HBc Total Ab, Serum (12/26/2024 9:31 AM SKILLS TRAINER) HBc Total Ab, S Negative Negative 12/26/2024 2:23 PM SKILLS TRAINER [facility] Blood (Blood, Venous) 12/26/2024 9:31 AM SKILLS TRAINER 12/26/2024 12:27 PM SKILLS TRAINER Pina Dorado M.D., M.P.H. LAB MICROBIOLOGY - BLOOD ORDERABLES Final Result [facility] [address] [place] [address] [facility] [address] [place] [address] * (ABNORMAL) Renal Function Panel (12/26/2024 9:31 AM SKILLS TRAINER) Potassium, S 4.0 3.6 - 5.2 mmol/L 12/26/2024 11:26 AM SKILLS TRAINER DTL Sodium, S 139 135 - 145 mmol/L 12/26/2024 11:26 AM SKILLS TRAINER DTL Chloride, S 114(H) 98 - 107 mmol/L 12/26/2024 11:26 AM SKILLS TRAINER DTL Bicarbonate, S 14(L) 22 - 29 mmol/L 12/26/2024 11:26 AM SKILLS TRAINER DTL Anion Gap 11 7 - 15 12/26/2024 11:26 AM SKILLS TRAINER DTL BUN (Blood Urea Nitrogen), S 6(L) 8 - 24 mg/dL 12/26/2024 11:26 AM SKILLS TRAINER DTL Creatinine 1.17 0.74 - 1.35 mg/dL 12/26/2024 11:26 AM SKILLS TRAINER DTL Estimated GFR (eGFR) 67 >=60 mL/min/BSA 12/26/2024 11:26 AM SKILLS TRAINER DTL Comment: Estimated GFR calculated using the 2020 CKD_EPI creatinine equation. Calcium, Total, S 7.6(L) 8.8 - 10.2 mg/dL 12/26/2024 11:26 AM SKILLS TRAINER DTL Glucose, S 114 70 - 140 mg/dL 12/26/2024 11:26 AM SKILLS TRAINER DTL Albumin, S 2.8(L) 3.5 - 5.0 g/dL 12/26/2024 11:26 AM SKILLS TRAINER DTL Phosphorus (Inorganic), S 3.1 2.5 - 4.5 mg/dL 12/26/2024 11:55 AM SKILLS TRAINER DTL Blood (Blood, Venous) 12/26/2024 9:31 AM SKILLS TRAINER 12/26/2024 10:10 AM SKILLS TRAINER us Justyn Torrez M.D. LAB BLOOD ADD-ON Final Result [facility] [address] [place] [address], [facility] [address] [place] [address] * Magnesium (12/26/2024 9:31 AM SKILLS TRAINER) [facility] Magnesium, S 1.7 1.7 - 2.3 mg/dL 12/26/2024 11:26 AM SKILLS TRAINER DTL Blood (Blood, Venous) 12/26/2024 9:31 AM SKILLS TRAINER 12/26/2024 10:10 AM SKILLS TRAINER us Justyn Torrez M.D. LAB BLOOD ADD-ON Final Result [facility] [address] [place] [address], [facility] [address] [place] [address] * (ABNORMAL) CBC with Differential, Blood (12/26/2024 9:31 AM SKILLS TRAINER) [facility] Hemoglobin 9.7(L) 13.2 - 16.6 g/dL 12/26/2024 10:07 AM SKILLS TRAINER DTL Hematocrit 30.2(L) 38.3 - 48.6 % 12/26/2024 10:07 AM SKILLS TRAINER DTL Erythrocytes 3.01(L) 4.35 - 5.65 x10(12)/L 12/26/2024 10:07 AM SKILLS TRAINER DTL MCV 100.3(H) 78.2 - 97.9 fL 12/26/2024 10:07 AM SKILLS TRAINER DTL RBC Distrib Width 14.3 11.8 - 14.5 % 12/26/2024 10:07 AM SKILLS TRAINER DTL Platelet Count 181 135 - 317 x10(9)/L 12/26/2024 10:07 AM SKILLS TRAINER DTL Leukocytes 5.5 3.4 - 9.6 x10(9)/L 12/26/2024 10:07 AM SKILLS TRAINER DTL Neutrophils 4.18 1.56 - 6.45 x10(9)/L 12/26/2024 10:07 AM SKILLS TRAINER DHPM Lymphocytes 0.78(L) 0.95 - 3.07 x10(9)/L 12/26/2024 10:07 AM SKILLS TRAINER DTL Monocytes 0.48 0.26 - 0.81 x10(9)/L 12/26/2024 10:07 AM SKILLS TRAINER DTL Eosinophils <0.03 0.03 - 0.48 x10(9)/L 12/26/2024 10:07 AM SKILLS TRAINER DTL Basophils <0.03 0.01 - 0.08 x10(9)/L 12/26/2024 10:07 AM SKILLS TRAINER DTL Blood (Blood, Venous) 12/26/2024 9:31 AM SKILLS TRAINER 12/26/2024 9:57 AM SKILLS TRAINER us Justyn Torrez M.D. LAB BLOOD ADD-ON Final Result [facility] [address] [place] [address], [facility] DTL [facility] [address] [place] [address] * (ABNORMAL) Renal Function Panel (12/25/2024 6:42 AM SKILLS TRAINER) Potassium, S 3.9 3.6 - 5.2 mmol/L 12/25/2024 7:37 AM SKILLS TRAINER DTL Sodium, S 140 135 - 145 mmol/L 12/25/2024 7:37 AM SKILLS TRAINER DTL Chloride, S 115(H) 98 - 107 mmol/L 12/25/2024 7:37 AM SKILLS TRAINER DTL Bicarbonate, S 15(L) 22 - 29 mmol/L 12/25/2024 7:37 AM SKILLS TRAINER DTL Anion Gap 10 7 - 15 12/25/2024 7:37 AM SKILLS TRAINER DTL BUN (Blood Urea Nitrogen), S 6(L) 8 - 24 mg/dL 12/25/2024 7:37 AM SKILLS TRAINER DTL Creatinine 1.27 0.74 - 1.35 mg/dL 12/25/2024 7:37 AM SKILLS TRAINER DTL Estimated GFR (eGFR) 61 >=60 mL/min/BSA 12/25/2024 7:37 AM SKILLS TRAINER DTL Comment: Estimated GFR calculated using the 2020 CKD_EPI creatinine equation. Calcium, Total, S 7.7(L) 8.8 - 10.2 mg/dL 12/25/2024 7:37 AM SKILLS TRAINER DTL Glucose, S 115 70 - 140 mg/dL 12/25/2024 7:37 AM SKILLS TRAINER DTL Albumin, S 2.8(L) 3.5 - 5.0 g/dL 12/25/2024 7:37 AM SKILLS TRAINER DTL Phosphorus (Inorganic), S 2.4(L) 2.5 - 4.5 mg/dL 12/25/2024 7:37 AM SKILLS TRAINER DTL Blood (Blood, Venous) 12/25/2024 6:42 AM SKILLS TRAINER 12/25/2024 7:20 AM SKILLS TRAINER us Justyn Torrez M.D. LAB BLOOD ADD-ON Final Result Performing Organization Address City/[facility]/ZIP Co de Phone Number [address] [place] [address] * (ABNORMAL) Magnesium (12/25/2024 6:42 AM SKILLS TRAINER) Magnesium, S 1.6(L) 1.7 - 2.3 mg/dL 12/25/2024 7:37 AM SKILLS TRAINER DTL Blood (Blood, Venous) 12/25/2024 6:42 AM SKILLS TRAINER 12/25/2024 7:20 AM SKILLS TRAINER us Justyn Torrez M.D. LAB BLOOD ADD[place] [address] * (ABNORMAL) CBC with Differential, Blood (12/25/2024 6:42 AM SKILLS TRAINER) Hemoglobin 9.7(L) 13.2 - 16.6 g/dL 12/25/2024 7:08 AM SKILLS TRAINER DTL Hematocrit 29.7(L) 38.3 - 48.6 % 12/25/2024 7:08 AM SKILLS TRAINER DTL Erythrocytes 2.94(L) 4.35 - 5.65 x10(12)/L 12/25/2024 7:08 AM SKILLS TRAINER DTL MCV 101.0(H) 78.2 - 97.9 fL 12/25/2024 7:08 AM SKILLS TRAINER DTL RBC Distrib Width 14.3 11.8 - 14.5 % 12/25/2024 7:08 AM SKILLS TRAINER DTL Platelet Count 188 135 - 317 x10(9)/L 12/25/2024 7:08 AM SKILLS TRAINER DTL Leukocytes 6.6 3.4 - 9.6 x10(9)/L 12/25/2024 7:08 AM SKILLS TRAINER DTL Neutrophils 4.76 1.56 - 6.45 x10(9)/L 12/25/2024 7:08 AM SKILLS TRAINER [facility] Lymphocytes 0.63(L) 0.95 - 3.07 x10(9)/L 12/25/2024 7:08 AM SKILLS TRAINER DTL Monocytes 1.14(H) 0.26 - 0.81 x10(9)/L 12/25/2024 7:08 AM SKILLS TRAINER DTL Eosinophils <0.03 0.03 - 0.48 x10(9)/L 12/25/2024 7:08 AM SKILLS TRAINER DTL Basophils 0.03 0.01 - 0.08 x10(9)/L 12/25/2024 7:08 AM SKILLS TRAINER DTL Blood (Blood, Venous) 12/25/2024 6:42 AM SKILLS TRAINER 12/25/2024 7:00 AM SKILLS TRAINER us Justyn Torrez M.D. LAB BLOOD ADD-ON Final Result [facility] [address] [place] [address], [facility] DTL [facility] [address] [place] [address] DHPM [facility] [address] [place] [address] * (ABNORMAL) Fungal Smear (12/24/2024 2:19 PM SKILLS TRAINER) Fungal Smear YEAST and PSEUDOHYPH AE(A) 12/24/2024 10:20 PM SKILLS TRAINER DTL [place] (Esophagus) 12/24/2024 2:19 PM SKILLS TRAINER Magen Borrego M.D. LAB MICROBIOLOGY - GENERAL O RDERABLES Final Result [facility] [address] [place] [address], [facility] DTL [facility] [address] [place] [address] * Surgical Pathology (12/24/2024 2:08 PM SKILLS TRAINER) 12/25/2024 2:29 PM SKILLS TRAINER DTL Participated in the Interpretation Urbano Reno M.D.-Pathology Fellow 12/25/2024 2:29 PM SKILLS TRAINER DTL Report electronically signed by Mundo Darby M.D. I verify that I have examined all relevant slides/materials for the specimen(s) and rendered or confirmed the diagnosis. 12/25/2024 2:29 PM SKILLS TRAINER DTL Gross Description A: Received in formalin [...] E1. Grossed by LMB. 12/25/2024 2:29 PM SKILLS TRAINER DTL Addendum CMV immunostain, (blocks A1, B1, C1 and D1), H. pylori immunostain (block B1), and AFB and GMS special stains (block D1) are all negative for microorganisms. Signed by Mundo Darby M.D. 12/29/2024 1:31 PM This test was developed using an analyte specific reagent. Its performance characteristics were determined by [facility] in a manner consistent with CLIA requirements. This test has not been cleared or approved by the U.S. Food and Drug Administration. 12/29/2024 1:31 PM SKILLS TRAINER DTL Comment:REVISED RESULTS Interpretation FINAL DIAGNOSIS A. [...] assessment of this case. 12/29/2024 1:31 PM SKILLS TRAINER DTL Biopsy (Duodenum) 12/24/2024 2:08 PM SKILLS TRAINER Biopsy (Stomach) 12/24/2024 2:09 PM SKILLS TRAINER Biopsy (Ileum) 12/24/2024 2: 27 PM SKILLS TRAINER Biopsy (Colon) 12/24/2024 2: 30 PM SKILLS TRAINER Polyp (Colon) 12/24/2024 2:3 6 PM SKILLS TRAINER us Magen Borrego M.D. LAB SURG PATH ORDERABLES Juan marta Result - Final [facility] [address] [place] [address], [facility] DTL [address] [place] [address] * Colonoscopy (12/24/2024 1:52 PM SKILLS TRAINER) 12/24/2024 1:52 PM SKILLS TRAINER Impressions [facility] - 12/24/2024 2:45 PM SKILLS TRAINER Post-op Diagnoses: - Preparation of the colon [...] of the ileum was normal. Biopsied. Narrative [facility] - 12/24/2024 2:45 PM SKILLS TRAINER Zana 6 GI GI Patient Name: Cr [...] bowel preparation was evaluated using the BBPS ([place] Bowel Preparation Scale) with scores of: Right [...] M.P.H. GI PROCEDURE ORDERA BLES Final Result [facility] NA * Upper GI Endoscopy (12/24/2024 1:52 PM SKILLS TRAINER) 12/24/2024 1:52 PM SKILLS TRAINER Impressions [facility] - 12/24/2024 2:20 PM SKILLS TRAINER Post-op Diagnoses: - Esophagogastric landmarks identified. - Esophageal plaques were found, suspicious for candidiasis. Brushings performed. - Normal stomach. Biopsied. - Mucosal changes in the duodenum with mild atrophy and nodularity. Biopsied. Narrative [facility] - 12/24/2024 2:20 PM SKILLS TRAINER Zana 6 GI GI Patient Name: Cr [...] (ABNORMAL) Renal Function Panel (12/24/2024 8:41 AM SKILLS TRAINER) Potassium, S 3.4(L) 3.6 - 5.2 mmol/L 12/24/2024 10:04 AM SKILLS TRAINER DTL Sodium, S 139 135 - 145 mmol/L 12/24/2024 10:04 AM SKILLS TRAINER DTL Chloride, S 114(H) 98 - 107 mmol/L 12/24/2024 10:04 AM SKILLS TRAINER DTL Bicarbonate, S 18(L) 22 - 29 mmol/L 12/24/2024 10:04 AM SKILLS TRAINER DTL Anion Gap 7 7 - 15 12/24/2024 10:04 AM SKILLS TRAINER DTL BUN (Blood Urea Nitrogen), S 6(L) 8 - 24 mg/dL 12/24/2024 10:04 AM SKILLS TRAINER DTL Creatinine 1.14 0.74 - 1.35 mg/dL 12/24/2024 10:04 AM SKILLS TRAINER DTL Estimated GFR (eGFR) 69 >=60 mL/min/BSA 12/24/2024 10:04 AM SKILLS TRAINER DTL Comment: Estimated GFR calculated using the 2020 CKD_EPI creatinine equation. Calcium, Total, S 7.7(L) 8.8 - 10.2 mg/dL 12/24/2024 10:04 AM SKILLS TRAINER DTL Glucose, S 85 70 - 140 mg/dL 12/24/2024 10:04 AM SKILLS TRAINER DTL Albumin, S 2.5(L) 3.5 - 5.0 g/dL 12/24/2024 10:04 AM SKILLS TRAINER DTL Phosphorus (Inorganic), S 2.5 2.5 - 4.5 mg/dL 12/24/2024 10:04 AM SKILLS TRAINER DTL Blood (Blood, Venous) 12/24/2024 8:41 AM SKILLS TRAINER 12/24/2024 9:32 AM SKILLS TRAINER us Justyn Torrez M.D. LAB BLOOD ADD-ON Final Result [facility] [address] [place] [address], [facility] [address] [place] [address] * Magnesium (12/24/2024 8:41 AM SKILLS TRAINER) Magnesium, S 1.7 1.7 - 2.3 mg/dL 12/24/2024 10:04 AM SKILLS TRAINER DTL Blood (Blood, Venous) 12/24/2024 8:41 AM SKILLS TRAINER 12/24/2024 9:32 AM SKILLS TRAINER us Justyn Torrez M.D. LAB BLOOD ADD-ON Final Result [facility] [address] [place] [address], [facility] [address] [place] [address] * (ABNORMAL) CBC with Differential, Blood (12/24/2024 8:41 AM SKILLS TRAINER) Hemoglobin 9.5(L) 13.2 - 16.6 g/dL 12/24/2024 9:38 AM SKILLS TRAINER DTL Hematocrit 29.0(L) 38.3 - 48.6 % 12/24/2024 9:38 AM SKILLS TRAINER DTL Erythrocytes 2.92(L) 4.35 - 5.65 x10(12)/L 12/24/2024 9:38 AM SKILLS TRAINER DTL MCV 99.3(H) 78.2 - 97.9 fL 12/24/2024 9:38 AM SKILLS TRAINER DTL RBC Distrib Width 14.0 11.8 - 14.5 % 12/24/2024 9:38 AM SKILLS TRAINER DTL Platelet Count 176 135 - 317 x10(9)/L 12/24/2024 9:38 AM SKILLS TRAINER DTL Leukocytes 6.1 3.4 - 9.6 x10(9)/L 12/24/2024 9:38 AM SKILLS TRAINER DTL Neutrophils 4.53 1.56 - 6.45 x10(9)/L 12/24/2024 9:38 AM SKILLS TRAINER DHPM Lymphocytes 0.68(L) 0.95 - 3.07 x10(9)/L 12/24/2024 9:38 AM SKILLS TRAINER DTL Monocytes 0.83(H) 0.26 - 0.81 x10(9)/L 12/24/2024 9:38 AM SKILLS TRAINER DTL Eosinophils <0.03 0.03 - 0.48 x10(9)/L 12/24/2024 9:38 AM SKILLS TRAINER DTL Basophils <0.03 0.01 - 0.08 x10(9)/L 12/24/2024 9:38 AM SKILLS TRAINER DTL Blood (Blood, Venous) 12/24/2024 8:41 AM SKILLS TRAINER 12/24/2024 9:17 AM SKILLS TRAINER us Justyn Torrez M.D. LAB BLOOD ADD-ON Final Result [facility] [employer] [facility] [address] [place] [address], [facility] DTL [facility] [address] [place] [address] [facility] [address] [place] [address] * (ABNORMAL) Renal Function Panel (12/23/2024 6:54 AM SKILLS TRAINER) Pathologist [facility] Potassium, S 4.2 3.6 - 5.2 mmol/L 12/23/2024 8:12 AM SKILLS TRAINER DTL Sodium, S 139 135 - 145 mmol/L 12/23/2024 8:12 AM SKILLS TRAINER DTL Chloride, S 115(H) 98 - 107 mmol/L 12/23/2024 8:12 AM SKILLS TRAINER DTL Bicarbonate, S 14(L) 22 - 29 mmol/L 12/23/2024 8:12 AM SKILLS TRAINER DTL Anion Gap 10 7 - 15 12/23/2024 8:12 AM SKILLS TRAINER DTL BUN (Blood Urea Nitrogen), S 8 8 - 24 mg/dL 12/23/2024 8:12 AM SKILLS TRAINER DTL Creatinine 1.18 0.74 - 1.35 mg/dL 12/23/2024 8:12 AM SKILLS TRAINER DTL Estimated GFR (eGFR) 66 >=60 mL/min/BSA 12/23/2024 8:12 AM SKILLS TRAINER DTL Comment: Estimated GFR calculated using the 2020 CKD_EPI creatinine equation. Calcium, Total, S 7.9(L) 8.8 - 10.2 mg/dL 12/23/2024 8:12 AM SKILLS TRAINER DTL Glucose, S 88 70 - 140 mg/dL 12/23/2024 8:12 AM SKILLS TRAINER DTL Albumin, S 2.7(L) 3.5 - 5.0 g/dL 12/23/2024 8:12 AM SKILLS TRAINER DTL Phosphorus (Inorganic), S 3.0 2.5 - 4.5 mg/dL 12/23/2024 8:12 AM SKILLS TRAINER DTL Blood (Blood, Venous) 12/23/2024 6:54 AM SKILLS TRAINER 12/23/2024 7:45 AM SKILLS TRAINER us Justyn Torrez M.D. LAB BLOOD ADD-ON Final Result [facility] [address] [place] [address], [facility] [address] [place] [address] * (ABNORMAL) Magnesium (12/23/2024 6:54 AM SKILLS TRAINER) [facility] Magnesium, S 1.5(L) 1.7 - 2.3 mg/dL 12/23/2024 8:12 AM SKILLS TRAINER DTL Blood (Blood, Venous) 12/23/2024 6:54 AM SKILLS TRAINER 12/23/2024 7:45 AM SKILLS TRAINER us Justyn Torrez M.D. LAB BLOOD ADD-ON Final Result [facility] [address] [place] [address], [facility] [address] [place] [address] * (ABNORMAL) CBC with Differential, Blood (12/23/2024 6:54 AM SKILLS TRAINER) [facility] Hemoglobin 10.1(L) 13.2 - 16.6 g/dL 12/23/2024 7:42 AM SKILLS TRAINER DTL Hematocrit 32.4(L) 38.3 - 48.6 % 12/23/2024 7:42 AM SKILLS TRAINER DTL Erythrocytes 3.18(L) 4.35 - 5.65 x10(12)/L 12/23/2024 7:42 AM SKILLS TRAINER DTL MCV 101.9(H) 78.2 - 97.9 fL 12/23/2024 7:42 AM SKILLS TRAINER DTL RBC Distrib Width 14.3 11.8 - 14.5 % 12/23/2024 7:42 AM SKILLS TRAINER DTL Platelet Count 220 135 - 317 x10(9)/L 12/23/2024 7:42 AM SKILLS TRAINER DTL Leukocytes 5.6 3.4 - 9.6 x10(9)/L 12/23/2024 7:42 AM SKILLS TRAINER DTL Neutrophils 3.66 1.56 - 6.45 x10(9)/L 12/23/2024 7:42 AM SKILLS TRAINER DHPM Lymphocytes 0.87(L) 0.95 - 3.07 x10(9)/L 12/23/2024 7:42 AM SKILLS TRAINER DTL Monocytes 1.04(H) 0.26 - 0.81 x10(9)/L 12/23/2024 7:42 AM SKILLS TRAINER DTL Eosinophils <0.03 0.03 - 0.48 x10(9)/L 12/23/2024 7:42 AM SKILLS TRAINER DTL Basophils <0.03 0.01 - 0.08 x10(9)/L 12/23/2024 7:42 AM SKILLS TRAINER DTL Blood (Blood, Venous) 12/23/2024 6:54 AM SKILLS TRAINER 12/23/2024 7:33 AM SKILLS TRAINER us Justyn Torrez M.D. LAB BLOOD ADD-ON Final Result [facility] [address] [place] [address], [facility] DTL [facility] [address] [place] [address] [facility] [address] [place] [address] * (ABNORMAL) Renal Function Panel (12/22/2024 10:45 AM SKILLS TRAINER) Pathologist [facility] Potassium, S 4.1 3.6 - 5.2 mmol/L 12/22/2024 12:07 PM SKILLS TRAINER DTL Sodium, S 139 135 - 145 mmol/L 12/22/2024 12:07 PM SKILLS TRAINER DTL Chloride, S 112(H) 98 - 107 mmol/L 12/22/2024 12:07 PM SKILLS TRAINER DTL Bicarbonate, S 19(L) 22 - 29 mmol/L 12/22/2024 12:07 PM SKILLS TRAINER DTL Anion Gap 8 7 - 15 12/22/2024 12:07 PM SKILLS TRAINER DTL BUN (Blood Urea Nitrogen), S 9 8 - 24 mg/dL 12/22/2024 12:07 PM SKILLS TRAINER DTL Creatinine 1.15 0.74 - 1.35 mg/dL 12/22/2024 12:07 PM SKILLS TRAINER DTL Estimated GFR (eGFR) 68 >=60 mL/min/BSA 12/22/2024 12:07 PM SKILLS TRAINER DTL Comment: Estimated GFR calculated using the 2020 CKD_EPI creatinine equation. Calcium, Total, S 7.7(L) 8.8 - 10.2 mg/dL 12/22/2024 12:07 PM SKILLS TRAINER DTL Glucose, S 95 70 - 140 mg/dL 12/22/2024 12:07 PM SKILLS TRAINER DTL Albumin, S 2.8(L) 3.5 - 5.0 g/dL 12/22/2024 12:07 PM SKILLS TRAINER DTL Phosphorus (Inorganic), S 2.7 2.5 - 4.5 mg/dL 12/22/2024 12:07 PM SKILLS TRAINER DTL Blood (Blood, Venous) 12/22/2024 10:45 AM SKILLS TRAINER 12/22/2024 11:42 AM SKILLS TRAINER us Justyn Torrez M.D. LAB BLOOD ADD-ON Final Result Performing Organization Address City/[facility]/ZIP Co de Phone Number [facility] [address] [place] [address], [facility] [place] [place] [address] * Magnesium (12/22/2024 10:45 AM SKILLS TRAINER) Magnesium, S 1.7 1.7 - 2.3 mg/dL 12/22/2024 12:07 PM SKILLS TRAINER DTL Blood (Blood, Venous) 12/22/2024 10:45 AM SKILLS TRAINER 12/22/2024 11:42 AM SKILLS TRAINER us Justyn Torrez M.D. LAB BLOOD ADD-ON Final Result Performing Organization Address [facility]/ZIP Co de Phone Number [facility] [address] [place] [address], [place] [address] * (ABNORMAL) CBC with Differential, Blood (12/22/2024 10:45 AM SKILLS TRAINER) Hemoglobin 10.3(L) 13.2 - 16.6 g/dL 12/22/2024 12:07 PM SKILLS TRAINER DTL Hematocrit 30.6(L) 38.3 - 48.6 % 12/22/2024 12:07 PM SKILLS TRAINER DTL Erythrocytes 3.08(L) 4.35 - 5.65 x10(12)/L 12/22/2024 12:07 PM SKILLS TRAINER DTL MCV 99.4(H) 78.2 - 97.9 fL 12/22/2024 12:07 PM SKILLS TRAINER DTL RBC Distrib Width 14.6(H) 11.8 - 14.5 % 12/22/2024 12:07 PM SKILLS TRAINER DTL Platelet Count 213 135 - 317 x10(9)/L 12/22/2024 12:07 PM SKILLS TRAINER DTL Leukocytes 7.3 3.4 - 9.6 x10(9)/L 12/22/2024 12:07 PM SKILLS TRAINER DTL Neutrophils 4.89 1.56 - 6.45 x10(9)/L 12/22/2024 12:07 PM SKILLS TRAINER DHPM Lymphocytes 1.00 0.95 - 3.07 x10(9)/L 12/22/2024 12:07 PM SKILLS TRAINER DTL Monocytes 1.35(H) 0.26 - 0.81 x10(9)/L 12/22/2024 12:07 PM SKILLS TRAINER DTL Eosinophils <0.03 0.03 - 0.48 x10(9)/L 12/22/2024 12:07 PM SKILLS TRAINER DTL Basophils 0.04 0.01 - 0.08 x10(9)/L 12/22/2024 12:07 PM SKILLS TRAINER DTL Blood (Blood, Venous) 12/22/2024 10:45 AM SKILLS TRAINER 12/22/2024 11:26 AM SKILLS TRAINER us Justyn Torrez M.D. LAB BLOOD ADD-ON Final Result [facility] [address] [place] [address], [facility] DTL [facility] [address] [place] [address] [facility] [address] [place] [address] * GI Pathogen Panel, PCR, Feces (12/22/2024 12:48 AM SKILLS TRAINER) Specimen Source STOOL 6:23 AM SKILLS TRAINER DTL Campylobacter species Negative Negative 12/22/2024 6:23 AM SKILLS TRAINER DTL C. difficile toxin Negative Negative 2024 6:23 AM SKILLS TRAINER DTL Plesiomonas shigelloides Negative Negative 12/22/2024 6:23 AM SKILLS TRAINER DTL Salmonella species Negative Negative 2024 6:23 AM SKILLS TRAINER DTL Vibrio species Negative Negative 12/22/2024 6:23 AM SKILLS TRAINER DTL Vibrio cholerae Negative Negative 6:23 AM SKILLS TRAINER DTL Yersinia species Negative Negative 12/22/19 6:23 AM SKILLS TRAINER DTL Enteroaggregative E. coli (EAEC) Negative Negative 12/22/2024 6:23 AM SKILLS TRAINER DTL Enteropathogenic E. coli (EPEC) Negative Negative 12/22/2024 6:23 AM SKILLS TRAINER DTL Enterotoxigenic E. coli (ETEC) Negative Negative 12/22/2024 6:23 AM SKILLS TRAINER DTL Shiga toxin producing E. coli Negative Negative 12/22/2024 6:23 AM SKILLS TRAINER DTL Shigella/Enteroinvas mary grace E. coli Negative Negative 12/22/2024 6:23 AM SKILLS TRAINER DTL Cryptosporidium species Negative Negative 12/22/2024 6:23 AM SKILLS TRAINER DTL Cyclospora cayetanensis Negative Negative 12/22/2024 6:23 AM SKILLS TRAINER DTL Entamoeba histolytica Negative Negative 12/22/2024 6:23 AM SKILLS TRAINER DTL Giardia Negative Negative 12/22/2024 6:23 AM SKILLS TRAINER DTL Adenovirus F40/41 Negative Negative 025 6:23 AM SKILLS TRAINER DTL Astrovirus Negative Negative 12/22/2024 6:23 AM SKILLS TRAINER DTL Norovirus GI/GII Negative Negative 12/22/19 25 6:23 AM SKILLS TRAINER DTL Rotavirus Ag, F Negative Negative 5 6:23 AM SKILLS TRAINER DTL Sapovirus Negative Negative 12/22/2024 6:23 AM SKILLS TRAINER DTL Comment: ----ADDITIONAL INFORMATION---- This assay is performed using the FDA-cleared [employer] GI Panel ([employer] Stool (Stool) 12/22/2024 12: 48 AM SKILLS TRAINER 12/22/2024 3:25 AM SKILLS TRAINER us Justyn Torrez M.D. LAB MICROBIOLOGY - GENE RAL ORDERABLES Final Result Performing Organization Address City/[facility]/ZIP Co de Phone Number [facility] [address] [place] [address], [facility] DTL [address] [place] [address] * DX Abdomen Portable Anterior Posterior 1 View (12/21/2024 11:59 PM SKILLS TRAINER) Anatomical Region Laterality Modality Abdomen, Abdominal RST LOS, Abdominal ARZ LOS, Abdominal FLA LOS N/A Digital Radiography Impressions 12/22/2024 8:40 AM SKILLS TRAINER Nonobstructive bowel gas pattern. Anastomotic sutures right hemiabdomen. Thoracolumbar levocurvature. Multilevel spondylotic changes. Demineralization. Narrative 12/22/2024 8:40 AM SKILLS TRAINER EXAM: DX ABDOMEN PORTABLE ANTERIOR POSTERIOR 1 VIEW Procedure Note Walt Thompson M.D. - 12/22/2024 EXAM: DX ABDOMEN PORTABLE ANTERIOR POSTERIOR 1 VIEW IMPRESSION: Nonobstructive bowel gas pattern. Anastomotic sutures right hemiabdomen.Thoracolumbar levocurvature. Multilevel spondylotic changes.Demineralization. us Justyn Torrez M.D. IMG DIAGNOSTIC IMAGING PROCEDURES Final Result * Bacteria / Andrea Culture, Blood #1 (12/21/2024 9:12 PM SKILLS TRAINER) Bacteria/Emily da Culture, Blood No growth after 5 days of incubation. 12/26/2024 10:02 PM SKILLS TRAINER DTL Blood (Blood, Peripheral Draw) 12/21/2024 9:12 PM SKILLS TRAINER 12/21/2024 9:56 PM SKILLS TRAINER Comment:Specimen Source Site : Blood us Pina Dorado M.D., M.P.H. LAB MICROBIOLOGY - GENERAL ORDERABLES Final Result Performing Organization Address City/[facility]/ZIP Co de Phone Number [facility] [address] [place] [address], [facility] [address] [place] [address] * Bacteria / Andrea Culture, Blood #2 (12/21/2024 9:00 PM SKILLS TRAINER) Pathologist [facility] Bacteria/Emily da Culture, Blood No growth after 5 days of incubation. 12/26/2024 10:02 PM SKILLS TRAINER DTL Blood (Blood, Portacath) 12/21/2024 9:00 PM SKILLS TRAINER 12/21/2024 9:56 PM SKILLS TRAINER Comment:Specimen Source Site : portacath us Justyn Torrez M.D. LAB MICROBIOLOGY - GENE RAL ORDERABLES Final Result [facility] [address] [place] [address], [facility] [address] [place] [address] * (ABNORMAL) Hepatic Function Panel (12/21/2024 9:00 PM SKILLS TRAINER) Pathologist [facility] Bilirubin, Total, S 0.2 0.0 - 1.2 mg/dL 12/21/2024 10:33 PM SKILLS TRAINER DTL Bilirubin, Direct, S <0.2 0.0 - 0.3 mg/dL 12/21/2024 10:33 PM SKILLS TRAINER DTL Aspartate Aminotransferase (AST), S 23 8 - 48 U/L 12/21/2024 10:33 PM SKILLS TRAINER DTL Alanine Aminotransferase (ALT), S 30 7 - 55 U/L 12/21/2024 10:33 PM SKILLS TRAINER DTL Alkaline Phosphatase, S 45 40 - 129 U/L 12/21/2024 10:33 PM SKILLS TRAINER DTL Albumin, S 3.0(L) 3.5 - 5.0 g/dL 12/21/2024 10:33 PM SKILLS TRAINER DTL Protein, Total, S 4.6(L) 6.3 - 7.9 g/dL 12/21/2024 10:33 PM SKILLS TRAINER DTL Blood (Blood, Venous) 12/21/2024 9:00 PM SKILLS TRAINER 12/21/2024 10:08 PM SKILLS TRAINER us Pina Dorado M.D., M.P.H. LAB BLOOD ADD-ON Fi nal Result [facility] [address] [place] [address], [facility] DTL [facility] [address] [place] [address] * (ABNORMAL) Basic Metabolic Panel (12/21/2024 9:00 PM SKILLS TRAINER) [facility] Potassium, S 5.0 3.6 - 5.2 mmol/L 12/21/2024 10:33 PM SKILLS TRAINER DTL Sodium, S 137 135 - 145 mmol/L 12/21/2024 10:33 PM SKILLS TRAINER DTL Chloride, S 109(H) 98 - 107 mmol/L 12/21/2024 10:33 PM SKILLS TRAINER DTL Bicarbonate, S 17(L) 22 - 29 mmol/L 12/21/2024 10:33 PM SKILLS TRAINER DTL Anion Gap 11 7 - 15 12/21/2024 10:33 PM SKILLS TRAINER DTL BUN (Blood Urea Nitrogen), S 9 8 - 24 mg/dL 12/21/2024 10:33 PM SKILLS TRAINER DTL Creatinine 1.14 0.74 - 1.35 mg/dL 12/21/2024 10:33 PM SKILLS TRAINER DTL Estimated GFR (eGFR) 69 >=60 mL/min/BSA 12/21/2024 10:33 PM SKILLS TRAINER DTL Comment: Estimated GFR calculated using the 2020 CKD_EPI creatinine equation. Calcium, Total, S 7.3(L) 8.8 - 10.2 mg/dL 12/21/2024 10:33 PM SKILLS TRAINER DTL Glucose, S 103 70 - 140 mg/dL 12/21/2024 10:33 PM SKILLS TRAINER DTL Blood (Blood, Venous) 12/21/2024 9:00 PM SKILLS TRAINER 12/21/2024 10:08 PM SKILLS TRAINER us Pina Dorado M.D., M.P.H. LAB BLOOD ADD-ON Fi nal Result [facility] [address] [place] [address], [facility] DTL [facility] [address] [place] [address] * Lactate for Sepsis with Reflex (12/21/2024 8:59 PM SKILLS TRAINER) [facility] Lactate, P 1.0 0.5 - 2.2 mmol/L 12/21/2024 9:40 PM SKILLS TRAINER STMA Blood (Blood, Venous) 12/21/2024 8:59 PM SKILLS TRAINER 12/21/2024 9:25 PM SKILLS TRAINER Pina Dorado M.D., M.P.H. LAB BLOOD NON ADD-O N Final Result [facility] [address] [place] [address], [facility] STMA [facility] [address] [place] [address] * (ABNORMAL) CBC with Differential, Blood (12/21/2024 8:59 PM SKILLS TRAINER) [facility] Hemoglobin 10.5(L) 13.2 - 16.6 g/dL 12/21/2024 10:01 PM SKILLS TRAINER DTL Hematocrit 30.9(L) 38.3 - 48.6 % 12/21/2024 10:01 PM SKILLS TRAINER DTL Erythrocytes 3.17(L) 4.35 - 5.65 x10(12)/L 12/21/2024 10:01 PM SKILLS TRAINER DTL MCV 97.5 78.2 - 97.9 fL 12/21/2024 10:01 PM SKILLS TRAINER DTL RBC Distrib Width 14.4 11.8 - 14.5 % 12/21/2024 10:01 PM SKILLS TRAINER DTL Platelet Count 198 135 - 317 x10(9)/L 12/21/2024 10:01 PM SKILLS TRAINER DTL Leukocytes 6.0 3.4 - 9.6 x10(9)/L 12/21/2024 10:01 PM SKILLS TRAINER DTL Neutrophils 4.95 1.56 - 6.45 x10(9)/L 12/21/2024 10:01 PM SKILLS TRAINER DHPM Lymphocytes 0.58(L) 0.95 - 3.07 x10(9)/L 12/21/2024 10:01 PM SKILLS TRAINER DTL Monocytes 0.45 0.26 - 0.81 x10(9)/L 12/21/2024 10:01 PM SKILLS TRAINER DTL Eosinophils <0.03 0.03 - 0.48 x10(9)/L 12/21/2024 10:01 PM SKILLS TRAINER DTL Basophils 0.03 0.01 - 0.08 x10(9)/L 12/21/2024 10:01 PM SKILLS TRAINER DTL Blood (Blood, Venous) 12/21/2024 8:59 PM SKILLS TRAINER 12/21/2024 9:52 PM SKILLS TRAINER us Pina Dorado M.D., M.P.H. LAB BLOOD ADD-ON Fi nal Result Performing Organization Address City/[facility]/[place] [address], [facility] [place] [place] [address] [facility] [address] [place] [address] * Thyroid Function Labette (12/21/2024 8:53 PM SKILLS TRAINER) [facility] TSH, Sensitive 1.4 0.3 - 4.2 mIU/L 12/21/2024 11:59 PM SKILLS TRAINER DTL Blood (Blood, Venous) 12/21/2024 8:53 PM SKILLS TRAINER 12/21/2024 11:27 PM SKILLS TRAINER us Justyn Torrez M.D. LAB BLOOD ADD-ON Final Result Performing Organization Address City/[facility]/ZIP Co de Phone Number [facility] [address] [place] [address], [place] [address] documented in this encounter Visit Diagnoses Diagnosis [...] hours all sources Given 12/27/2024 5:49 AM SKILLS TRAINER 500 mg aspirin chewable tablet 81 mg 81 mg, oral, 2 times weekly (Once per day on Saturday), First dose (after last modification) on Sat12/22/24 at 0900 Given 12/29/2024 9:31 AM SKILLS TRAINER 81 mg Given 12/24/2024 8:53 AM SKILLS TRAINER 81 mg Given 12/22/2024 8:42 AM SKILLS TRAINER 81 mg atorvastatin tablet 40 mg (Lipitor) 40 mg, oral, Daily at bedtime, First dose on Sat12/21/24 at 2100 Given 12/28/2024 8:13 PM SKILLS TRAINER 40 mg Given 12/27/2024 8:55 PM SKILLS TRAINER 40 mg Given 12/26/2024 8:11 PM SKILLS TRAINER 40 mg budesonide 24 hr capsule 9 mg (Entocort EC) 9 mg, oral, Daily, First dose (after last reorder) on Sat12/22/24 at 0900, See tube feeding guidelines for tube feeding administration instructions., On hold since Sat12/26/2024 at 1213 until manually unheld Given 12/26/2024 8:38 AM SKILLS TRAINER 9 mg Given 12/25/2024 9:15 AM SKILLS TRAINER 9 mg Given 12/24/2024 8:36 AM SKILLS TRAINER 9 mg cholecalciferol (vitamin D3) tablet 50 mcg 50 mcg, oral, Daily, First dose on Sat12/22/24 at 0900, cholecalciferol (vitamin D3) orderable was interchanged for cholecalciferol (vitamin D3) tablet/capsule Given 12/29/2024 9:[address] 50 mcg Given 12/28/2024 8:43 AM SKILLS TRAINER 50 mcg Given 12/27/2024 8:52 AM SKILLS TRAINER 50 mcg enoxaparin injection 40 mg (Lovenox) 40 mg, subcutaneous, Daily, First dose on Sat12/22/24 at 0900 Given 12/29/2024 9:32 AM SKILLS TRAINER 40 mg Right Lower Abdomen Given 12/28/2024 8:42 AM SKILLS TRAINER 40 mg Le ft Upper Arm (Back) Given 12/27/2024 8:52 AM SKILLS TRAINER 40 mg Le ft Lower Abdomen fish oil capsule 1,000 mg 1,000 mg, oral, Daily, First dose on Sat12/22/24 at 0900, fish oil (OTC) oral was interchanged for fish Oil (prescription/OTC) See tube feeding guidelines for tube feeding administration instructions. Given 12/29/2024 9:32 AM SKILLS TRAINER 1,000 mg Given 12/28/2024 8:43 AM SKILLS TRAINER 1,000 mg Given 12/27/2024 8:52 AM SKILLS TRAINER 1,000 mg fluconazole tablet 100 mg (Diflucan) 100 mg, oral, Daily, First dose (after last modification) on Sat12/28/24 at 0900, For 12 doses, Drug Monitoring Program: Pharmacist to adjust medication dosing based on indication and drug clearance factors., Indications: esophageal candidiasisIndications:esophageal candidiasis Given 12/28/2024 8:43 AM SKILLS TRAINER 100 mg fluconazole tablet 100 mg (Diflucan) 100 mg, oral, Once, On Sat12/28/24 at 0945, For 1 dose, Drug Monitoring Program: Pharmacist to adjust medication dosing based on indication and drug clearance factors., Indications: esophgeal candidiasisIndications:esophgeal candidiasis Given 12/28/2024 9:47 AM SKILLS TRAINER 100 mg fluconazole tablet 200 mg (Diflucan) 200 mg, oral, Daily, First dose (after last modification) on Sat12/26/24 at 1315, For 14 doses, Drug Monitoring Program: Pharmacist to adjust medication dosing based on indication and drug clearance factors., Indications: esophageal candidiasisIndications:esophageal candidiasis Given 12/27/2024 8:52 AM SKILLS TRAINER 200 mg Given 12/26/2024 3:48 PM SKILLS TRAINER 200 mg fluconazole tablet 200 mg (Diflucan) 200 mg, oral, Daily, First dose (after last modification) on Sat12/29/24 at 0900, For 11 doses, Drug Monitoring Program: Pharmacist to adjust medication dosing based on indication and drug clearance factors., Indications: esophageal candidiasisIndications:esophageal candidiasis Given 12/29/2024 9:32 AM SKILLS TRAINER 200 mg fluconazole tablet 400 mg (Diflucan) 400 mg, oral, Daily, First dose on Sat12/25/24 at 0900, For 1 dose, Drug Monitoring Program: Pharmacist to adjust medication dosing based on indication and drug clearance factors., Indications: esophageal candidiasisIndications:esophageal candidiasis Given 12/25/2024 9:15 AM SKILLS TRAINER 400 mg folic acid tablet 1,000 mcg 1,000 mcg, oral, Daily, First dose on Sat12/22/24 at 0900 Given 12/29/2024 9:32 AM SKILLS TRAINER 1,000 mcg Given 12/28/2024 8:43 AM SKILLS TRAINER 1,000 mcg Given 12/27/2024 8:52 AM SKILLS TRAINER 1,000 mcg furosemide injection 40 mg (Lasix) 40 mg, intravenous, Once, On Sat12/27/24 at 0600, For 1 dose, Adults: Doses less than 120 mg: IV push over 20 mg/minute. Doses 120 mg or greater: IVPB at 4 mg/minute. Peds/Neonates: Doses less than 120 mg over 0.5 mg/kg/minute. Doses 120 mg or greater: IVPB at 4 mg/minute. Given 12/27/2024 5:51 AM SKILLS TRAINER 40 mg furosemide injection 40 mg (Lasix) 40 mg, intravenous, Once, On Sat12/28/24 at 0815, For 1 dose, Adults: Doses less than 120 mg: IV push over 20 mg/minute. Doses 120 mg or greater: IVPB at 4 mg/minute. Peds/Neonates: Doses less than 120 mg over 0.5 mg/kg/minute. Doses 120 mg or greater: IVPB at 4 mg/minute. Given 12/28/2024 8:42 AM SKILLS TRAINER 40 mg heparin flush 500-1,000 Units 500-1,000 Units, intra-catheter, During hospitalization, line care, Prior to discharge, Starting on Sat12/25/24 at 1456, For 1 dose, Implanted Vascular Access Device (IVAD) Venous Non-Valved: flush 5 mL (500 units) per port/lumen following saline flush prior to discharge. Given 12/29/2024 5:18 PM SKILLS TRAINER 500 Units Port Lactated Ringer's 100 mL/hr, intravenous, Continuous, Starting on Sat12/21/24 at 2100, For 24 hours New Bag 12/21/2024 9:52 PM SKILLS TRAINER 100 mL/hr 10 0 mL/hr Lactated Ringer's 100 mL/hr, intravenous, Continuous, Starting on Sat12/22/24 at 1745, For 24 hours New Bag 12/23/2024 2:00 PM SKILLS TRAINER 100 mL/hr 10 0 mL/hr Rate/Dose Verify 12/23/2024 12:00 PM SKILLS TRAINER 100 mL/hr 100 mL /hr New Bag 12/23/2024 4:47 AM SKILLS TRAINER 100 mL/hr 100 mL/hr Lactated Ringer's 75 mL/hr, intravenous, Continuous, Starting on Sat12/24/24 at 0800, For 12 hours New Bag 12/24/2024 8:41 AM SKILLS TRAINER 75 mL/hr 75 mL/hr loperamide capsule 4 mg (Imodium A-D) 4 mg, oral, Once, On Sat12/25/24 at 0745, For 1 dose Given 12/25/2024 8:03 AM SKILLS TRAINER 4 mg magnesium sulfate in D5W IVPB 1 g 1 g, intravenous, at 100 mL/hr, Administer over 60 Minutes, Once, On Sat12/24/24 at 1730, For 1 dose, Over 1 hours. New Bag 12/24/2024 6:09 PM SKILLS TRAINER 1 g 100 mL/hr magnesium sulfate in water IVPB 2 g 2 g, intravenous, at 25 mL/hr, Administer over 120 Minutes, Once, On Sat12/23/24 at 1845, For 1 dose, Over 2 hours. New Bag 12/23/2024 9:35 PM SKILLS TRAINER 2 g 25 mL/hr magnesium sulfate in water IVPB 2 g 2 g, intravenous, at 25 mL/hr, Administer over 120 Minutes, Once, On Sat12/25/24 at 1130, For 1 dose, Over 2 hours. New Bag 12/25/2024 11:33 AM SKILLS TRAINER 2 g 25 mL/hr magnesium sulfate in water IVPB 2 g 2 g, intravenous, at 25 mL/hr, Administer over 120 Minutes, Once, On Sat12/27/24 at 1115, For 1 dose, Over 2 hours. New Bag 12/27/2024 11:30 AM SKILLS TRAINER 2 g 25 mL/hr methylPREDNISolone sod succinate (PF) injection 250 mg (SOLU-MedroL) 250 mg, intravenous, Daily, First dose on Sat12/26/24 at 0900, Activate vial to a final concentration of 62.5 mg/mL Given 12/28/2024 8:42 AM SKILLS TRAINER 250 mg Given 12/27/2024 8:52 AM SKILLS TRAINER 250 mg Given 12/26/2024 8:39 AM SKILLS TRAINER 250 mg metoprolol succinate 24 hr tablet 25 mg (Toprol XL) 25 mg, oral, Daily, First dose on Sat12/22/24 at 0900, Do NOT crush or chew. Tablet may be split on score if needed. Given 12/29/2024 9:42 AM SKILLS TRAINER 25 mg Given 12/28/2024 8:43 AM SKILLS TRAINER 25 mg Given 12/27/2024 8:52 AM SKILLS TRAINER 25 mg kvbaixubrxve-vsvm-ZG-Ca-minerals 400 mcg (folic acid) tablet 1 tablet 1 tablet, oral, Daily, First dose on Sat12/22/24 at 0900 Given 12/29/2024 9:32 AM SKILLS TRAINER 1 tablet Given 12/28/2024 8:43 AM SKILLS TRAINER 1 tablet Given 12/27/2024 8:52 AM SKILLS TRAINER 1 tablet ondansetron (PF) injection 4 mg [...] or split tablet. Given 12/29/2024 5:19 AM SKILLS TRAINER 40 mg Given 12/28/2024 5:53 AM SKILLS TRAINER 40 mg Given 12/27/2024 5:50 AM SKILLS TRAINER 40 mg polycarbophil tablet 625 mg (FiberCon) 625 mg, oral, Daily, First dose on Sat12/22/24 at 0900, A full glass (240 mL or 8 fl oz) of liquid should be taken with each dose. Given 12/29/2024 9:32 AM SKILLS TRAINER 625 m g Given 12/28/2024 8:43 AM SKILLS TRAINER 625 mg Given 12/27/2024 8:52 AM SKILLS TRAINER 625 mg polyethylene glycol-electrolytes solution 4,000 mL [...] within 48 hours. Given 12/23/2024 4:48 PM SKILLS TRAINER 4,000 mL potassium chloride ER tablet 40 mEq 40 mEq, oral, Once, On Doretha 12/24/24 at 1045, For 1 dose, For K 3-3.4 mEq/L - give total of 40 mEq Swallow whole. Do NOT crush, chew, or split tablet., Monitor the following for replacement: Potassium, Replace Potassium per: Standard Schedule Given 12/24/2024 4:21 PM SKILLS TRAINER 40 mEq potassium chloride ER tablet 40 mEq 40 mEq, oral, Once, On 12/27/24 at 1115, For 1 dose, For K 3-3.4 mEq/L - give total of 40 mEq Swallow whole. Do NOT crush, chew, or split tablet., Monitor the following for replacement: Potassium, Replace Potassium per: Standard Schedule Given 12/27/2024 11:30 AM SKILLS TRAINER 40 mEq potassium chloride ER tablet 40 mEq 40 mEq, oral, Once, On 12/28/24 at 0715, For 1 dose, For K 3-3.4 mEq/L - give total of 40 mEq Swallow whole. Do NOT crush, chew, or split tablet., Monitor the following for replacement: Potassium, Replace Potassium per: Standard Schedule Given 12/28/2024 8:42 AM SKILLS TRAINER 40 mEq potassium chloride ER tablet 40 mEq 40 mEq, oral, Once, On 12/28/24 at 1745, For 1 dose, For K 3-3.4 mEq/L - give total of 40 mEq Swallow whole. Do NOT crush, chew, or split tablet., Monitor the following for replacement: Potassium, Replace Potassium per: Standard Schedule Given 12/28/2024 5:55 PM SKILLS TRAINER 40 mEq ssnnhzenc-ixykcl-svxqubnzm 280-160-250 mg per packet 1 packet (Phos-NaK) 1 packet, oral, Every 4 hours while awake, First dose on Sat12/25/24 at 1130, For 4 doses, Mix each packet in 75 mL water or juice then administer ordered dose. 250 mg of phosphate is equivalent to 8 mmol of phosphate., Monitor the following for replacement: Phosphorus Given 12/25/2024 8:52 PM SKILLS TRAINER 1 packet Given 12/25/2024 7:31 PM SKILLS TRAINER 1 packet Given 12/25/2024 4:09 PM SKILLS TRAINER 1 packet predniSONE tablet 120 mg (Deltasone) 120 mg, oral, Daily, First dose on Sat12/29/24 at 0900 Given 12/29/2024 9:31 AM SKILLS TRAINER 120 mg sodium bicarbonate 75 mEq in D5W 1,075 mL infusion 100 mL/hr, intravenous, Continuous, Starting on Sat12/27/24 at 1115 New Bag 12/27/2024 2:06 PM SKILLS TRAINER 100 mL/hr 100 mL/hr sodium chloride 0.9 % injection 3 mL 3 mL, intravenous, Every 12 hours scheduled, First dose on Sat12/21/24 at 2100, Peripheral Intravenous Catheter and Rapid Infusion Catheter, when no infusion to maintain patency Given 12/29/2024 9:42 AM SKILLS TRAINER 3 mL Given 12/28/2024 8:37 PM SKILLS TRAINER 3 mL Given 12/28/2024 8:43 AM SKILLS TRAINER 3 mL sodium phosphate 15 mmol in NaCl 0.9% IVPB 15 mmol, intravenous, at 47.7 mL/hr, Administer over 2.2 Hours, Once, On Sat12/29/24 at 1400, For 1 dose, Administer at 6.8 mmoL phosphate/hr. Max rate of 15 mmoL phosphate/hr. New Bag 12/29/2024 2:45 PM SKILLS TRAINER 15 mmol 47.7 m L/hr sulfamethoxazole-trimethoprim 400-80 mg per tablet 1 tablet (Bactrim) 1 tablet, oral, Daily, First dose on Sat12/29/24 at 0900, Drug Monitoring Program: Pharmacist to adjust medication dosing based on indication and drug clearance factors., Indications: Prophylaxis, medicalIndications:Prophylaxis, medical Given 12/29/2024 9:31 AM SKILLS TRAINER 1 tablet tamsulosin 24 hr capsule 0.4 mg (Flomax) 0.4 mg, oral, Daily, First dose on Sat12/22/24 at 0900, Swallow whole. Do NOT crush, chew or open capsule. Given 12/29/2024 9:32 AM SKILLS TRAINER 0.4 mg Given 12/28/2024 8:43 AM SKILLS TRAINER 0.4 mg Given 12/27/2024 8:52 AM SKILLS TRAINER 0.4 mg thiamine tablet 100 mg (Vitamin B-1) 100 mg, oral, Daily, First dose on Sat12/22/24 at 0900 Given 12/29/2024 9:32 AM SKILLS TRAINER 100 mg Given 12/28/2024 8:43 AM SKILLS TRAINER 100 mg Given 12/27/2024 8:52 AM SKILLS TRAINER 100 mg documented in this encounter Active and Recently Administered Medications Times are shown in SKILLS TRAINER. Scheduled Medication Order 12/27/2024 12/28/2024 12/29/2024 aspirin [...] 0942 (Given - Provider: Diaz Norris R.N.) hjbjgscpipgm-ijpm-SS-Ca-m inerals 400 mcg (folic acid) tablet 1 tablet 1 tablet, oral, Daily, First dose on Sat12/22/24 at 0900 0852 (Given - Provider: Edison Muro R.N.) 0843 (Given - Provider: Diaz Norris R.N.) 0932 (Given - Provider: Diaz Norris R.N.) pantoprazole DR tablet 40 mg [...] 0519 (Given - Provider: Liss[facility] R.N., [facility] polycarbophil tablet 625 mg (FiberCon) 625 mg, oral, Daily, First dose on Sat12/22/24 at 0900, A full glass (240 mL or 8 fl oz) of liquid should be taken with each dose. 0852 (Given - Provider: Edison Muro RLianne) 0843 (Given - Provider: Diaz Norris [...] Rodrigues R.N. - Comment: requests 1 tab) abaqelhzswZUSYP-pkjm-ntvg-ma g hydrox-simeth suspension 15 mL 15 mL, [...] contact. documented in this encounter Care Teams Pmp Relationship Specialty Start Date End Date None Reported, Pcp PCP - General Family Medicine 12/21/24 documented as of this encounter
--- NOTE | 2025-01-05 17:32 | CRLHL7_ITS ---
For Patients: As a result of the Century Cures Act, medical imaging exams and procedure reports are released immediately into your electronic medical record. You may view this report before your referring provider. If you have questions, please contact your health care provider. DATE: 01/05/2025 CLINICAL HISTORY: Patient with focal neurological deficits. TECHNIQUE: Standard helical CT image acquisition of the neck up to the skull base after bolus intravenous contrast enhancement. 2D and 3D MIP images for post-processing were performed and interpreted on an independent workstation and 3D images were permanently archived. COMPARISON: CT and MRI same day. FINDINGS: There is severe narrowing at the origin of the right subclavian artery and mild narrowing at the origin of the left common carotid artery. The origins of the rest of the great vessels from the aortic arch are patent. The origin of the right vertebral artery demonstrates mild narrowing. The origin of the left vertebral artery is patent. The common carotid arteries demonstrate mild narrowing bilaterally. There is a severe (73%) stenosis at the origin of the right internal carotid artery by NASCET criteria. This is caused by calcified plaque with a 0.9mm residual lumen. There is a patent left carotid endarterectomy graft. The rest of the cervical segments of the internal carotid arteries are patent up to the skull base. The left vertebral artery is dominant. The cervical segments of the vertebral arteries are patent up to the skull base. The visualized lung apices are unremarkable. The thyroid gland is unremarkable. The soft tissues of the neck are unremarkable. There are degenerative changes in the cervical spine. IMPRESSION: 1. Severe (73%) stenosis at the origin of the right internal carotid artery by NASCET criteria. This is caused by calcified plaque with a 0.9mm residual lumen. 2. Patent left carotid endarterectomy graft. 2. Severe narrowing at the origin of the right subclavian artery. Please note that all CT scans at this facility use dose modulation, iterative reconstruction, and/or weight-based dosing when appropriate to reduce radiation dose to as low as reasonably achievable. Dictated by Juli Butts MD @ 01/06/2025 12:58:32 PM (Electronically Signed)
--- NOTE | 2025-01-05 17:32 | CRLHL7_ITS ---
For Patients: As a result of the Century Cures Act, medical imaging exams and procedure reports are released immediately into your electronic medical record. You may view this report before your referring provider. If you have questions, please contact your health care provider. DATE: 01/05/2025 CLINICAL HISTORY: Patient with focal neurological deficits. TECHNIQUE: Standard helical CT image acquisition through the intracranial circulation following intravenous administration of contrast material with bolus tracking. 2D and 3D MIP images for post-processing were performed and interpreted on an independent workstation and 3D images were permanently archived. COMPARISON: CT same day. FINDINGS: There is no cerebral aneurysm or large vessel occlusion. There is moderate intracranial atherosclerosis in the carotid siphons bilaterally. The right middle cerebral artery and its branches are normal. The right anterior cerebral artery and its branches are normal. The left middle cerebral artery and its branches are normal. The left anterior cerebral artery and its branches are normal. The anterior communicating artery is well visualized and appears normal. The right vertebral artery and PICA are normal. The left vertebral artery and PICA are normal. The left vertebral artery is dominant. The basilar artery is patent and appears normal. The right posterior cerebral artery is normal. The left posterior cerebral artery is normal. IMPRESSION: 1. No cerebral aneurysm or large vessel occlusion. 2. Moderate intracranial atherosclerosis in the carotid siphons bilaterally. Please note that all CT scans at this facility use dose modulation, iterative reconstruction, and/or weight-based dosing when appropriate to reduce radiation dose to as low as reasonably achievable. Dictated by Juli Butts MD @ 01/06/2025 1:01:08 PM (Electronically Signed)
--- NOTE | 2025-01-05 17:32 | CRLHL7_ITS ---
For Patients: As a result of the Century Cures Act, medical imaging exams and procedure reports are released immediately into your electronic medical record. You may view this report before your referring provider. If you have questions, please contact your health care provider. INDICATION: Stroke-like symptoms. TECHNIQUE: CT of the head without contrast. Coronal and sagittal reformats are included. COMPARISON: Brain MRI from 01/04/2025. FINDINGS: No CT evidence of acute cortical infarct. No loss of mike white matter differentiation. No hyperdense vessels to suggest intracranial thrombus. No acute intracranial hemorrhage. No mass effect or midline shift. No hydrocephalus or extra-axial collections. Patchy white matter hypoattenuation, typical for chronic microvascular ischemic change. 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 Intracranial vascular calcifications. Moderate generalized parenchymal volume loss. No acute osseous abnormalities. Mastoid air cells and paranasal sinuses are clear. Normal soft tissues. IMPRESSION: 1. No CT evidence of acute infarction. The acute/subacute infarcts within the parietal/occipital regions are not visible on CT. No acute intracranial hemorrhage. No other acute intracranial findings. Please note that all CT scans at this facility use dose modulation, iterative reconstruction, and/or weight-based dosing when appropriate to reduce radiation dose to as low as reasonably achievable. Dictated by Massimo Harley MD @ 01/05/2025 6:21:30 PM (Electronically Signed)
[2025-01-05 17:40] LABS: Hematocrit 31.7 % (37.0-53.0); Immature Granulocytes Abs Auto 0.16 K/uL (0.00-0.30); Immature Granulocytes Pct Auto 2.3 %; Lymphocytes Percent Auto 3.7 % (20-44); Mean Corpuscular HGB Conc 32 gm/dL (32-36); Mean Corpuscular Hemoglobin 32 pg (26-34); Mean Corpuscular Volume 102 fL (80-100); Monocytes Percent Auto 3.7 % (0.0-11.0); Neutrophils Percent Auto 90.3 % (42.0-72.0); Platelet Count* 95 K/uL (140-440); RDW Coefficient of Variation % 14.5 % (11.5-15.5); Red Blood Count 3.11 m/uL (4.30-5.90)
[2025-01-05 17:42] LABS: Slide Review Reflex No
--- NOTE | 2025-01-05 17:42 | ED_ITS ---
HPI - General Adult General Date Seen: 01/05/25 Chief complaint: Lower Extremity Swelling Stated complaint: MRI follow up Time Seen by Provider: 01/05/25 16:32 Source: patient Mode of arrival: ambulatory Limitations: no limitations History of Present Illness HPI narrative: patient is a 69-year-old male history of AFib with RVR not on any blood thinners, small cell lung cancer, hypertension, ACS, hyperlipidemia presenting to emergency department for follow-up on an MRI. He has routine MRIs for his lung cancer and had 1 done yesterday that shows acute strokes with hemorrhagic conversion. He has not had any symptoms he states. His daughter is with him and does note 3 weeks ago when he was admitted for renal failure he had 1 day where he seemed to have slurred speech but they initially thought it was because he had a dry mouth. Other than that has not show any neurological issues. He was told to come in to be evaluated due to these MRI findings. Denies fevers, chills, chest pain, shortness of breath, abdominal pain, diarrhea, constipation, weakness, numbness, vision changes, headache. States he feels completely fine. Patient states he is more concerned about his lower extremity swelling has been going on for the past week since he was discharged from the hospital. He is unable to get compression stockings son and they are supposed to start wrapping his legs. States they are sore. Related Data Home Medications ?Medication ?Instructions ?Recorded ?Confirmed nitroglycerin 0.4 mg sublingual 0.4 mg sublingual Q5M PRN 07/31/22 01/05/25 tablet aspirin 81 mg tablet,delayed 81 mg PO .TWICE WEEKLY 08/10/22 01/05/25 release (Adult Aspirin Regimen) bismuth subsalicylate 262 mg 262 mg PO QDAY 10/08/23 01/05/25 tablet (Pepto-Bismol) tamsulosin 0.4 mg capsule (Flomax) 0.4 mg PO QDAY 02/18/24 01/05/25 omega 3-dha 200 mg-epa 300 mg-fish 1 cap PO DAILY 03/24/24 01/05/25 oil 1,000 mg capsule acetaminophen 500 mg tablet 500 mg PO QID PRN 05/13/24 01/05/25 (Tylenol Extra Strength) acetaminophen 650 mg 1,300 mg PO Q12H 07/15/24 01/05/25 tablet,extended release (Tylenol Arthritis Pain) omeprazole 20 mg capsule,delayed 20 mg PO QDAY 08/04/24 01/05/25 release psyllium husk 0.4 gram capsule 0.4 g PO QDAY 12/09/24 01/05/25 (Daily Fiber) Previous Rx's ?Medication ?Instructions ?Recorded folic acid 1 mg tablet See Rx Instructions .Route 06/18/24 .COMPLEX #90 tabs metoprolol succinate 25 mg 25 mg PO QDAY #90 tabs 08/26/24 tablet,extended release 24 hr multivitamin (Multiple Vitamins 1 tab PO QDAY #90 tabs 08/26/24 tablet) thiamine HCl (vitamin B1) 100 mg See Rx Instructions .Route 09/02/24 tablet .COMPLEX #90 tabs cholecalciferol (vitamin D3) 10 See Rx Instructions .Route 12/08/24 mcg (400 unit) tablet (Vitamin D3) .COMPLEX #90 tabs budesonide 3 mg 9 mg (3 x 3 mg) PO DAILY #30 ea 12/17/24 capsule,delayed,extended release atorvastatin 40 mg tablet See Rx Instructions .Route 12/28/24 .COMPLEX #90 tabs Allergies Allergy/AdvReac Type Severity Reaction Status Date / Time No Known Drug Allergies Allergy Verified 01/05/25 18:02 Review of Systems Status of ROS: Reports: 10 or more systems reviewed and unremarkable except as noted in History and below PFSH PFS Medical History Collagenous colitis ?K52.831 - Collagenous colitis (ICD-10) BPH w/o urinary obs/LUTS ?N40.0 - Benign prostatic hyperplasia without lower urinary tract symptoms (ICD-10) Scoliosis ?M41.9 - Scoliosis, unspecified (ICD-10) Tear of right rotator cuff ?M75.101 - Unspecified rotator cuff tear or rupture of right shoulder, not specified as traumatic (ICD-10) Osteoarthritis of both shoulders ?M19.011 - Primary osteoarthritis, right shoulder (ICD-10) ?M19.012 - Primary osteoarthritis, left shoulder (ICD-10) C. difficile diarrhea ?A04.72 - Enterocolitis due to Clostridium difficile, not specified as recurrent (ICD-10) Excessive oral secretions ?R68.89 - Other general symptoms and signs (ICD-10) Tobacco use (02/27/12) ?Z72.0 - Tobacco use (ICD-10) Health care directive on file ?Z78.9 - Other specified health status (ICD-10) Surgical History S/P carotid endarterectomy ?Z98.890 - Other specified postprocedural states (ICD-10) History of vasectomy (01/10/11) ?Z98.52 - Vasectomy status (ICD-10) History of coronary artery stent placement (06/03/13) ?Z95.5 - Presence of coronary angioplasty implant and graft (ICD-10) History of appendectomy (01/10/11) ?Z90.49 - Acquired absence of other specified parts of digestive tract (ICD- 10) Social History What is your current living situation?: I presently have a place to live Problems where you live: no known problems Problems where you live details: N/A In the past 12 months, utilities in danger of being shut off: no In past 12 months, lack of transportation kept you from medical appts, meetings, work, or getting things needed for daily living: no In the past 12 mos, have been you worried that your food would run out before you had money to buy more?: never true In the past 12 mos, the food you bought just didn't last and you didn't have money to buy more?: never true Smoking Status: Former smoker Do you use any of these nicotine containing products: None Second hand tobacco smoke exposure: No How often do you have a drink containing alcohol: monthly or less How many standard drinks containing alcohol do you have on a typical day: 1 or 2 How often do you have six or more drinks on one occasion: Never AUDIT-C Alcohol total score: 1 Non-prescribed substance use: denies use Caffeine: Yes How often does anyone, including family, friends and others, physically hurt you : never How often does anyone, including family, friends and others, insult or talk down to you: never How often does anyone, including family, friends and others, threaten you with harm: never How often does anyone, including family, friends and others, scream or curse at you: never service: No Exam Narrative: Exam Narrative: Const: Well-nourished, Well-developed, in no distress Eyes: PERRL, no conjunctival injection, and symmetrical lids HENT: Atraumatic external nose and ears. Moist mucous membranes. Neck: Symmetric, trachea midline, No thyromegaly. CVS: RRR, No murmurs or gallops. Peripheral pulses 2+ and equal in all extremities, +3 lower extremity pitting edema up to the knee bilateral RESP: Unlabored respiratory effort. Clear to auscultation bilaterally. GI: Nontender/Nondistended, No rebound or guarding. MSK:Extremities w/o deformity, Normal Active ROM Skin: Warm, Dry. No rashes or lesions. Neuro: Normal Muscle tone, No focal neurological deficits. Psych: Awake, Alert, & Oriented x3. Appropriate mood and affect. Const: Vital Signs, click to edit/add: Vital Signs - 24 hr 01/05/25 16:20 Temperature 98.4 F Pulse Rate [Right Pulse Oximeter] 89 Respiratory Rate 18 Blood Pressure [Ri ght Upper Arm] 112/ Pulse Oximetry 97 Oxygen Delivery Me thod Room Air Course Vital Signs Vital signs: Initial Vital Signs Temperature 98.4 F 01/05/25 16:20 Temperature Source Temporal Artery Scan 01/05/25 16:20 Pulse Rate 89 01/05/25 16:20 Pulse Rhythm Regular 01/05/25 16:20 Pulse Strength 3+ Normal 01/05/25 16:20 Respiratory Rate 18 01/05/25 16:20 Blood Pressure 112/67 01/05/25 16:20 Blood Pressure Mean 82 01/05/25 16:20 Blood Pressure Position Sitting 01/05/25 16:20 Pulse Oximetry 97 01/05/25 16:20 Oxygen Delivery Method Room Air 01/05/25 16:20 Vital Signs Temperature 98.4 F 01/05/25 16:20 Pulse Rate 89 01/05/25 16:20 Respiratory Rate 18 01/05/25 16:20 Blood Pressure 112/67 01/05/25 16:20 Pulse Oximetry 97 01/05/25 16:20 Oxygen Delivery Method Room Air 01/05/25 16:20 Temperature 98.4 F 01/05/25 16:20 Pulse Rate 89 01/05/25 16:20 Respiratory Rate 18 01/05/25 16:20 Blood Pressure 112/67 01/05/25 16:20 Pulse Oximetry 97 01/05/25 16:20 Oxygen Delivery Method Room Air 01/05/25 16:20 Medical Decision Making MDM Narrative Medical decision making narrative: Patient is a 69-year-old male presenting to the emergency department for an ischemic stroke seen on MRI performed yesterday. He is not having any symptoms currently. The only episode of neurologic symptoms him or his daughter can think of was 3 weeks ago he had some slurred speech they thought was due to his dry mouth. He he has been feeling fine since then. Was discharged from [facility] for acute kidney failure 1 week ago. Will do a CBC, BMP, lipid panel. Spoke to Dr. El of [facility] who recommends CTA head and neck and admission. She also states long as the CT is do not show any acute changes that he can be given 1 dose of his baby aspirin. No Plavix at this time. Patient is agreeable to this plan. His CT showed no acute changes. Rest is lab work showed no concerning findings. EKG shows no concerning findings. He is accepted to the hospitalist service. When comes to his lower extremity swelling I a.m. unsure what this is from but he is showing no signs of heart failure and is currently being treated for this outpatient. He is not having shortness of breath and with it being bilateral with quite a bit of swelling seems unlikely to be blood clots. His legs will be wrapped in the emergency department Patient eventually side he does not want to stay. He states he does not want to miss his oncology appointment tomorrow. I explained to him that is recommended by Neurology that he states. He states he understands but would still like to go home. His daughter is with him and she is agreeable with him going home. I did inform him he needs to return if he develops any other symptoms. He states he understands. Do this I do feel comfortable discharging him home. Lab Data Labs: Lab Results 01/05/25 Range/Units 17:33 WBC 7.10 (4.50-11.00) K/uL RBC 3.11 L (4.30-5.90) m/uL Hgb 10.0 L (13.5-17.5) gm/dL Hct 31.7 L (37.0-53.0) % MCV 102 H (80-100) fL MCH 32 (26-34) pg MCHC 32 (32-36) gm/dL RDW Coeff of Bernice 14.5 (11.5-15.5) % Plt Count 95 L (140-440) K/uL Neut % (Auto) 90.3 H (42.0-72.0) % Lymph % (Auto) 3.7 L (20-44) % [place] % (Auto) 3.7 (0.0-11.0) % Eos % (Auto) 0.0 (0.0-7.0) % Baso % (Auto) 0.0 (0.0-3.0) % Neut # (Auto) 6.40 (1.7-7.0) K/uL Lymph # (Auto) 0.30 L (0.90-2.90) K/uL [place] # (Auto) 0.30 (0.00-0.90) K/UL Eos # (Auto) 0.00 (0.00-0.50) K/uL Baso # (Auto) 0.00 (0.00-0.30) K/uL Abs Immat Gran (auto) 0.16 (0.00-0.30) K/uL Imm/Tot Granulo (auto) 2.3 % Sodium 131 L (135-149) mmol/L Potassium 3.7 (3.6-5.1) mmol/L Chloride 96 (96-114) mmol/L Carbon Dioxide 30 (20-32) mmol/L Anion Gap 5 L (7-15) mEq/L BUN 22 (7-30) mg/dL Creatinine 1.0 (0.5-1.5) mg/dL Estimated Creat Clear 57.56 Estimated GFR 81 ml/min Glucose 170 H (60-115) mg/dL Calcium 7.4 L (8.4-10.6) mg/dL Triglycerides 116 (40-149) mg/dL Cholesterol 114 (90-199) mg/dL LDL Cholesterol, Calc 31 (<100) mg/dL HDL Cholesterol 60 (>=40) mg/dL Imaging Data CTA head and neck: Attestation: I have reviewed the pertinent imaging results. Radiologist's impression: Preliminary Report: FINDINGS CTA head: No emergent large vessel occlusion or high-grade arterial stenosis. CTA neck: Moderate stenosis right ICA origin from atherosclerotic plaque. Left- sided endarterectomy changes. Mild stenosis of the left common carotid artery. Multifocal stenosis of the right proximal cervical vertebral artery from atherosclerotic plaque. Scattered atherosclerotic changes of the aortic arch and great vessel origins. Read by:?Massimo Harley MD @01/05/2025 6:31:[address] scan head: Attestation: I have reviewed the pertinent imaging results. Radiologist's impression: 1. No CT evidence of acute infarction. The acute/subacute infarcts within the parietal/occipital regions are not visible on CT. No acute intracranial hemorrhage. No other acute intracranial findings. Please note that all CT scans at this facility use dose modulation, iterative reconstruction, and/or weight-based dosing when appropriate to reduce radiation dose to as low as reasonably achievable. Dictated by Massimo Harley MD @ 01/05/2025 6:21:30 PM ECG Data Attestation: I personally reviewed and interpreted this ECG as follows: Prior ECG tracings: available for review Interpretation: Normal sinus rhythm with rate of 89 beats per minute, normal intervals, normal axis, no ST or T-wave abnormalities. Appears similar previous EKGs on file Discharge Plan Discharge Clinical Impression: Ischemic cerebrovascular accident (CVA) Patient Disposition: Home, Self-Care Condition: Stable Instructions: Ischemic Stroke (DC) Additional Instructions: It is very important he return to the emergency department if you start developing any neurological symptoms. He also needs to have close outpatient follow-up to get everything worked up. You will also need to have follow-up with Neurology. Return for any other new or concerning findings. Prescriptions: No Action tamsulosin [Flomax] 0.4 mg capsule 0.4 mg PO QDAY acetaminophen [Tylenol Extra Strength] 500 mg tablet 500 mg PO QID PRN acetaminophen [Tylenol Arthritis Pain] 650 mg tablet extended release 1,300 mg PO Q12H omeprazole 20 mg capsule,delayed release(DR/EC) 20 mg PO QDAY aspirin [Adult Aspirin Regimen] 81 mg tablet,delayed release (DR/EC) 81 mg PO .TWICE WEEKLY Pepto-Bismol 262 mg tablet 262 mg PO QDAY Rx Instructions: do not exceed 16 tabs per 24 hrs omega 7-bcw-[id number]-fish oil 200-300-1,000 mg capsule 1 cap PO DAILY psyllium husk [Daily Fiber] 0.4 gram capsule 0.4 g PO QDAY budesonide 3 mg capsule,delayed,extend.release 9 mg PO DAILY Qty: 30 0RF nitroglycerin 0.4 mg tablet, sublingual 0.4 mg sublingual Q5M PRN Rx Instructions: do not exceed 3 doses per episode folic acid 1 mg tablet See Rx Instructions .ROUTE .COMPLEX Qty: 90 2RF Dose Instruction: TAKE ONE TABLET BY MOUTH EVERY DAY Rx Instructions: TAKE ONE TABLET BY MOUTH EVERY DAY metoprolol succinate 25 mg tablet extended release 24 hr 25 mg PO QDAY Qty: 90 3RF multivitamin [Multiple Vitamins] Tablet 1 tab PO QDAY Qty: 90 3RF thiamine HCl (vitamin B1) 100 mg tablet See Rx Instructions .ROUTE .COMPLEX Qty: 90 3RF Dose Instruction: TAKE ONE TABLET BY MOUTH EVERY DAY Rx Instructions: TAKE ONE TABLET BY MOUTH EVERY DAY cholecalciferol (vitamin D3) [Vitamin D3] 10 mcg (400 unit) tablet See Rx Instructions .ROUTE .COMPLEX Qty: 90 0RF Dose Instruction: TAKE ONE TABLET BY MOUTH EVERY DAY Rx Instructions: TAKE ONE TABLET BY MOUTH EVERY DAY atorvastatin 40 mg tablet See Rx Instructions .ROUTE .COMPLEX Qty: 90 0RF Dose Instruction: TAKE ONE TABLET BY MOUTH AT BEDTIME Rx Instructions: TAKE ONE TABLET BY MOUTH AT BEDTIME Follow Up/Referrals: Andrei Burnham MD [Primary Care Provider] - Stand Alone Forms: [facility] Info Instructions
[2025-01-05 17:54] LABS: Chloride* 96 mmol/L (96-114); Potassium* 3.7 mmol/L (3.6-5.1); Sodium* 131 mmol/L (135-149)
[2025-01-05 17:56] LABS: Cholesterol* 114 mg/dL (90-199)
[2025-01-05 17:57] LABS: Anion Gap 5 mEq/L (7-15); Blood Urea Nitrogen* 22 mg/dL (7-30); Calcium* 7.4 mg/dL (8.4-10.6); Carbon Dioxide* 30 mmol/L (20-32); Est. Creatinine Clearance* 57.56; Estimated Glomerular Filt Rate 81 ml/min; Glucose* 170 mg/dL (60-115); HDL Cholesterol* 60 mg/dL (>=40); LDL Cholesterol Calculated 31 mg/dL (<100); Triglycerides* 116 mg/dL (40-149)
== END 2025-01-05 19:31 | disposition left against medical advice (07) ==
PROVIDERS: Emergency Provider Student in an Organized Health Care Education/Training Program; PCP Family Medicine
DX: I63.9 Cerebral infarction, unspecified (principal)
CPT/HCPCS: 36415; 70450; 70496; 70498; 80048; 80061; 85025; 93005; 99284; 99285; Q9967

== ENCOUNTER 2025-02-23 22:21 | Outpatient (CLI) | payer MEDICARE, BC, SELFPAY | END 2025-02-23 22:22 | disposition home or self-care (01) | LOC: AMB 02-24 09:38 | PROVIDERS: PCP Family Medicine; Visit Provider Emergency Medicine | DX: R53.1 Weakness (principal); I89.0 Lymphedema, not elsewhere classified; R53.81 Other malaise; Z51.89 Encounter for other specified aftercare; C34.11 Malignant neoplasm of upper lobe, right bronchus or lung; R94.6 Abnormal results of thyroid function studies; E53.8 Deficiency of other specified B group vitamins; K21.9 Gastro-esophageal reflux disease without esophagitis; K52.831 Collagenous colitis | CPT/HCPCS: A0998 ==

== ENCOUNTER 2025-03-12 08:58 | Outpatient (CLI) | payer MEDICARE, BC, SELFPAY ==
--- NOTE | 2025-03-12 09:15 | CRLHL7_ITS ---
For Patients: As a result of the Century Cures Act, medical imaging exams and procedure reports are released immediately into your electronic medical record. You may view this report before your referring provider. If you have questions, please contact your health care provider. Indication: Lung cancer. Technique: Multiplanar, multisequence MRI of the brain was performed without and with intravenous contrast. Contrast: 15 cc Dotarem. Comparison: CT head 01/05/2025. MR brain 01/04/2025. Findings: Mild thinning of the corpus callosum. The pituitary gland clivus appear intact. Mild degenerative change visualized upper cervical spine. Interval decreased presence of restricted diffusion within the right parietal and occipital lobes. There is corresponding T2 FLAIR hyperintensity. The ventricles are proportionate to the cerebral sulci. The 4th ventricle appears midline. The basal cisterns appear patent. No abnormal extra-axial fluid collection identified. Moderate parenchymal volume loss. Moderate T2 FLAIR hyperintense foci within the subcortical and periventricular white matter, favored to represent chronic ischemic microvascular disease. Small chronic infarct left cerebellum. Small chronic infarcts bilateral basal ganglia and right frontal lobe. There is no intracranial mass, abnormal mass-effect or midline shift identified. No abnormal enhancement. Major intracranial vascular flow voids appear grossly intact. Both globes are preserved. Impression: 1. Evolving now late subacute to chronic infarcts of the right parietal and occipital lobes. 2. No new acute infarct identified. 3. Moderate chronic ischemic microvascular disease. Stable small scattered chronic infarcts involving the right frontal lobe, bilateral basal ganglia and left cerebellum. 4. No evidence of intracranial metastases. Dictated by Bill Bustillo MD @ 03/12/2025 1:43:32 PM (Electronically Signed)
== END 2025-03-12 08:59 | disposition home or self-care (01) ==
LOC: MRI 08:58
PROVIDERS: PCP Family Medicine; Visit Provider Internal Medicine Hematology & Oncology
DX: C34.90 Malignant neoplasm of unspecified part of unspecified bronchus or lung (principal); I63.9 Cerebral infarction, unspecified; I67.82 Cerebral ischemia
CPT/HCPCS: 70553; A9575

== ENCOUNTER 2025-04-22 15:10 | Outpatient (CLI) | payer MEDICARE, BC, SELFPAY ==
--- NOTE | 2025-04-22 15:30 | CRLHL7_ITS ---
For Patients: As a result of the 21st Century Cures Act, medical imaging exams and procedure reports are released immediately into your electronic medical record. You may view this report before your referring provider. If you have questions, please contact your health care provider. EXAM: FDG PET-CT Skull Base to Thighs CLINICAL INFORMATION: 70-year-old man with history of lung cancer. Restaging TECHNIQUE: Radiopharmaceutical: 18F-fluorodeoxyglucose (18F-FDG) Dose: 12.52 milliCurie. Blood glucose: 91 mg/dL. Image acquisition: At approximately 60 minutes following IV tracer administration via the access port, positron emission tomography was performed from the skull base through the mid thigh. Non-contrast low-dose helical CT imaging was performed over the same range without breath-hold for attenuation correction of PET images and anatomic correlation; it is neither sufficient, nor should it be substituted for diagnostic purposes. COMPARISON: FDG PET-CT 12/31/2024 FINDINGS: Mediastinal blood pool FDG uptake: SUVMax 2.5 (image 107) Liver background parenchymal FDG uptake: SUVMax 3.4 (image 147) PET Findings: New intense focal FDG uptake in the left mandible SUVMax 9.2 (Image 41). No abnormal FDG avid lymphadenopathy. No abnormal FDG uptake in the visualized skeleton. New diffuse moderate FDG uptake in the decompressed stomach, without definite evidence of gastric wall thickening, SUVMax 5.3 (image 146). New diffuse moderate to intense small and large bowel loop uptake without evidence of bowel wall thickening or nella-bowel fat stranding. Tracer uptake elsewhere is physiologic. Non-PET findings: Partial opacification of left maxillary sinus. Coronary artery calcifications. Atherosclerotic calcifications of the thoracic and abdominal aorta. Cholelithiasis. Postoperative changes at the ascending colon/cecum. Left-sided scoliosis of the lower thoracolumbar spine. Multilevel degenerative changes in the spine. IMPRESSION: Since 12/31/2024: 1. No evidence of FDG avid malignancy. 2. New diffuse moderate to intense small and large bowel loop FDG uptake without associated inflammatory changes on CT is nonspecific. Differential consideration includes physiologic uptake versus inflammatory uptake from early enterocolitis including immunotherapy induced colitis. Correlate with patient`s symptoms. 3. New diffuse moderate FDG uptake in the decompressed stomach, without CT correlate, is nonspecific for physiologic uptake versus uptake from early gastritis. Clinically correlate. 4. New intense focal FDG uptake in the left mandible is compatible with periodontal disease. Correlate with dental exam. Dictated by Felipe Coker MD @ 04/27/2025 4:00:50 PM (Electronically Signed)
== END 2025-04-22 15:11 | disposition home or self-care (01) ==
PROVIDERS: PCP Family Medicine; Visit Provider Internal Medicine Hematology & Oncology
DX: C34.11 Malignant neoplasm of upper lobe, right bronchus or lung (principal); K31.9 Disease of stomach and duodenum, unspecified
CPT/HCPCS: 78815; A9552

== ENCOUNTER 2025-04-28 09:30 | Outpatient (RCR) | payer MEDICARE, BC, SELFPAY ==
[2024-12-09 09:39] LABS: Albumin* 3.6 g/dL (3.3-5.0); Chloride* 102 mmol/L (96-114)
[2024-12-09 09:40] LABS: Potassium* 3.7 mmol/L (3.6-5.1); Sodium* 133 mmol/L (135-149)
[2024-12-09 09:41] LABS: Hematocrit 39.4 % (37.0-53.0); Hemoglobin* 12.8 gm/dL (13.5-17.5); Immature Granulocytes Abs Auto 0.04 K/uL (0.00-0.30); Immature Granulocytes Pct Auto 0.6 %; Mean Corpuscular HGB Conc 33 gm/dL (32-36); Mean Corpuscular Hemoglobin 33 pg (26-34); Mean Corpuscular Volume 102 fL (80-100); RDW Coefficient of Variation % 14.0 % (11.5-15.5); Red Blood Count 3.88 m/uL (4.30-5.90); White Blood Count* 7.27 K/uL (4.50-11.00)
[2024-12-09 09:42] LABS: Anion Gap 10 mEq/L (7-15); Bilirubin Total* 0.6 mg/dL (0.1-1.5); Carbon Dioxide* 21 mmol/L (20-32); Creatinine* 1.6 mg/dL (0.5-1.5); Estimated Glomerular Filt Rate 46 ml/min; Lymphocytes Absolute Auto 0.70 K/uL (0.90-2.90); Slide Review Reflex No; Total Protein* 5.8 g/dL (6.0-8.3)
[2024-12-09 09:43] LABS: Alanine Aminotransferase* 14 U/L (4-50); Alkaline Phosphatase* 40 U/L (40-150); Aspartate Amino Transferase* 21 U/L (12-35); Blood Urea Nitrogen* 23 mg/dL (7-30); Calcium* 8.7 mg/dL (8.4-10.6); Glucose* 115 mg/dL (60-115)
--- NOTE | 2024-12-11 10:51 | ONC.NURNOTE ---
Called pt to check in after he called in with a GI bug earlier this week. Terence states that he was been quite sick. He hasn't eaten since Saturday; is having diarrhea and had one episode of vomiting. Terence's port is accessed and he states that it is in good condition and dressing is intact. He will plan to come in on Saturday for repeat labs and infusion. Support offered.
[2024-12-15 10:55] VITALS: BP 74/52; PULSE 104; RESP 20; TEMP 35.4
[2024-12-15 11:12] LABS: Hematocrit 40.0 % (37.0-53.0); Hemoglobin* 13.9 gm/dL (13.5-17.5); Immature Granulocytes Pct Auto 2.5 %; Mean Corpuscular HGB Conc 35 gm/dL (32-36); Mean Corpuscular Hemoglobin 32 pg (26-34); Mean Corpuscular Volume 92 fL (80-100); RDW Coefficient of Variation % 12.9 % (11.5-15.5); Red Blood Count 4.33 m/uL (4.30-5.90); White Blood Count* 15.43 K/uL (4.50-11.00)
[2024-12-15 11:15] LABS: Immature Granulocytes Abs Auto 0.40 K/uL (0.00-0.30); Lymphocytes Absolute Auto 1.20 K/uL (0.90-2.90); Slide Review Reflex No
[2024-12-15 11:27] LABS: Albumin* 4.1 g/dL (3.3-5.0); Chloride* 91 mmol/L (96-114); Sodium* 125 mmol/L (135-149)
[2024-12-15 11:30] LABS: Alanine Aminotransferase* 20 U/L (4-50); Alkaline Phosphatase* 56 U/L (40-150); Aspartate Amino Transferase* 19 U/L (12-35); Bilirubin Total* 0.7 mg/dL (0.1-1.5); Blood Urea Nitrogen* 90 mg/dL (7-30); Glucose* 114 mg/dL (60-115); Total Protein* 6.4 g/dL (6.0-8.3)
[2024-12-15 11:31] LABS: Calcium* 8.2 mg/dL (8.4-10.6)
[2024-12-15 11:36] LABS: Anion Gap 29 mEq/L (7-15)
[2024-12-15 11:37] LABS: Est. Creatinine Clearance* 8.90; Estimated Glomerular Filt Rate 9 ml/min
[2024-12-15 11:39] LABS: Potassium* 2.9 mmol/L (3.6-5.1)
[2024-12-15 11:43] LABS: Carbon Dioxide* 5 mmol/L (20-32)
[2024-12-15 11:59] LABS: Creatinine* 6.1 mg/dL (0.5-1.5)
[2024-12-15 12:12] LABS: HCO3 VBG 10 mmol/L (21-28); Lactate* 1.2 mmol/L (0.5-1.9); PCO2 VBG 26 mmHG (40-50); PO2 VBG 42.7 mmHG (25-47)
[2024-12-15 12:15] LABS: pH VBG 7.193 (7.32-7.43)
--- NOTE | 2024-12-15 12:31 | ONC.NURNOTE ---
Pt present at [facility] for repeat labs and Tecentriq infusion. Upon arrival pt was weighed and vitals assessed. Pt reported ongoing diarrhea and vomiting. Pt's weight down, BP low, tachy. Labs drawn (see lab flowsheet). Discussed case with Dr. Nascimento and ordered to hold treatment and send pt to ER. RN contacted ER charge master analyst and was informed that there were no beds available at that current moment. RN then contacted Dr. Boogie, hospitalist and gave report. MD accepted pt as direct admit. ordered IVF and additional lab work which was started/done. Pt was escorted to the hospital unit at 12:30 by SONU Aguirre. Of note, pt unable to have a BM since being at [facility].
[2024-12-15 13:42] LABS: Procalcitonin* 2.63 ng/mL (<0.50)
[2024-12-15 13:55] LABS: Ionized Calcium* 1.04 mmol/L (1.11-1.30)
[2024-12-15 21:36] LABS: C.Difficile Negative (Negative); CDIFFEPI 027 PRESUMPTIVE NEGATIVE (Negative)
--- NOTE | 2024-12-30 14:23 | ONC.NURNOTE ---
Called pt today to check in after recent hospitalization. Terence states that he just got home yesterday evening. He is feeling better but has significant swelling in his lower extremities. Pt will come to [facility] for labs/port access tomorrow prior to his PET scan. Terence missed his brain MRI while hospitalized and so would like to get that rescheduled. Pt is seeing Dr. Nascimento on 01/06/2025. Terence also states that he is not to receive any further infusions or treatment at this time. RN reassured pt that Dr. Nascimento had been in communication with his hospital team. Called Radiology and they are working on getting a brain MRI scheduled prior to MD appt. They will call Terence with date/time. They will also call [facility] if it changes anything with his port access appt tomorrow.
[2024-12-31] MEDS: SODIUM CHLORIDE 0.9 % (FLUSH) 10 ML SYRINGE IVF ×2 (14:40→16:52)
[2024-12-31] MEDS: HEPARIN 500 UNIT/5 ML SYRINGE IVF ×2 (14:40→16:52)
--- NOTE | 2024-12-31 16:52 | PC.NURSE ---
Port de-accessed in PET scanner.
--- NOTE | 2025-01-22 14:53 | ONC.NURNOTE ---
Patient did not show up for lab appt today. Called and LVM that if he was able to make it by 4pm today he could still come otherwise he would need to come at 8:30 Saturday morning for labs prior to his appt with Dr. Nascimento at 9:30.
[2025-01-25 09:00] LABS: Hematocrit 31.9 % (37.0-53.0); Hemoglobin* 10.3 gm/dL (13.5-17.5); Immature Granulocytes Abs Auto 0.25 K/uL (0.00-0.30); Immature Granulocytes Pct Auto 4.0 %; Mean Corpuscular HGB Conc 32 gm/dL (32-36); Mean Corpuscular Hemoglobin 34 pg (26-34); Mean Corpuscular Volume 104 fL (80-100); RDW Coefficient of Variation % 18.5 % (11.5-15.5); Red Blood Count 3.07 m/uL (4.30-5.90); White Blood Count* 6.25 K/uL (4.50-11.00)
[2025-01-25 09:01] LABS: Lymphocytes Absolute Auto 0.70 K/uL (0.90-2.90); Slide Review Reflex No
[2025-01-25 09:35] LABS: Albumin* 3.5 g/dL (3.3-5.0); Chloride* 96 mmol/L (96-114); Sodium* 137 mmol/L (135-149)
[2025-01-25 09:36] LABS: Potassium* 4.1 mmol/L (3.6-5.1)
[2025-01-25 09:38] LABS: Alanine Aminotransferase* 36 U/L (4-50); Alkaline Phosphatase* 58 U/L (40-150); Anion Gap 9 mEq/L (7-15); Aspartate Amino Transferase* 25 U/L (12-35); Bilirubin Total* 0.7 mg/dL (0.1-1.5); Blood Urea Nitrogen* 51 mg/dL (7-30); Calcium* 8.7 mg/dL (8.4-10.6); Carbon Dioxide* 32 mmol/L (20-32); Creatinine* 1.8 mg/dL (0.5-1.5); Est. Creatinine Clearance* 31.98; Estimated Glomerular Filt Rate 40 ml/min; Glucose* 141 mg/dL (60-115); Total Protein* 5.6 g/dL (6.0-8.3)
[2025-01-25] MEDS: SODIUM CHLORIDE 0.9 % (FLUSH) 10 ML SYRINGE IVF (10:41)
[2025-01-25] MEDS: HEPARIN 500 UNIT/5 ML SYRINGE IVF (10:41)
[2025-03-26 08:57] VITALS: BP 153/74; PULSE 105; RESP 20; TEMP 36.8; O2SAT 97
[2025-03-26] MEDS: HEPARIN 500 UNIT/5 ML SYRINGE IVF (09:10)
[2025-03-26] MEDS: SODIUM CHLORIDE 0.9 % (FLUSH) 10 ML SYRINGE IVF (09:10)
--- NOTE | 2025-04-22 16:03 | ONC.NURNOTE ---
Pt here for port access for PET scan. Pt doing well, however, mentioned his diarrhea started up again last week while taking new medication prescribed by his primary care. [facility] explained to pt he should contact primary care with this information. Pt verbalized understanding of plan of care.
--- NOTE | 2025-04-29 11:07 | ONC.NURNOTE ---
Diarrhea Received message from Liz at [facility] [phone], after she received call from Mr. Castrejon yesterday with recurrent diarrhea. Mr. Castrejon is post fecal transplant for recurrent c diff, s/p antifungal antibiotics for esphageal serafin, and s/p budesonide treatment for ICI related colitis. She messaged that they have nothing to offer Mr. Castrejon regarding his recurrent diarrhea. Mr. Castrejon was seen in consult by Dr. Nascimento yesterday in the clinic with plan for steroid taper to see if it improves his diarrea again. I called Mr. Castrejon today for update on his symptoms. He reports that he started prednisone taper script given by Dr. Nascimento yesterday, at 3pm. He has had 3 diarrhea stools so far today (11am) and said that he was only incontinent for one of them so feels that he is improving. He continues to wear a diaper. He is eating and drinking but still has decreased appetite. He remains off of his oral potassium tablets and has follow up appointment with Dr. Burnham tomorrow. He will try to increase his oral fluids today but does not want to come into the clinic for IV fluids today. He agrees to update the clinic every few days regarding the status of his diarrhea/PO intake. He also plans to have PT appointment this week. CT on Saturday in [place] with follow up with vascular provider regarding his lower extremity vascular issues.
--- NOTE | 2025-05-06 15:49 | ONC.NURNOTE ---
Pt called asking to update Mara Curran APRN, DIE INSPECTOR regarding his diarrhea. Pt is taking steroids and states that he is really feeling good and, all is going well and that he's back to normal. He will call to check in again when he is near completion of his steroids.
== END 2025-06-07 23:59 | disposition home or self-care (01) ==
LOC: CCIC 09:30
PROVIDERS: Clinical Nurse Specialist; Family Medicine; PCP Family Medicine; Referring Provider Family Medicine; Visit Provider Internal Medicine Hematology & Oncology
DX: C34.11 Malignant neoplasm of upper lobe, right bronchus or lung (principal); K21.9 Gastro-esophageal reflux disease without esophagitis; I25.10 Atherosclerotic heart disease of native coronary artery without angina pectoris; E53.8 Deficiency of other specified B group vitamins; Z86.73 Personal history of transient ischemic attack (TIA), and cerebral infarction without residual deficits; K52.831 Collagenous colitis; K31.9 Disease of stomach and duodenum, unspecified
CPT/HCPCS: 36415; 36591; 78815; 80053; 82330; 82803; 83605; 83735; 84100; 84145; 84443; 85025; 86140; 87040; 87493; 99211; 99214; 99215; G0463; A9552; J1642; J7030

== ENCOUNTER 2025-07-27 12:38 | Outpatient (CLI) | payer MEDICARE, BC, SELFPAY ==
--- NOTE | 2025-07-27 13:00 | CRLHL7_ITS ---
For Patients: As a result of the Century Cures Act, medical imaging exams and procedure reports are released immediately into your electronic medical record. You may view this report before your referring provider. If you have questions, please contact your health care provider. Indication: Lung cancer staging Technique: Noncontrast sagittal T1, axial FLAIR, T2 turbo spine echo, and diffusion weighted images. Supplemental post contrast T1 weighted axial and coronal sequences are provided after administration of 15 cc Dotarem gadolinium-based IV contrast. Comparison: MRI 03/12/2025 Findings: No mass effect or midline shift. No hydrocephalus. No suspicious extra-axial collection or acute intracranial hemorrhage. There is no evidence of diffusion restriction to suggest acute ischemia. Moderate chronic ischemic microvascular disease. Chronic ischemic infarcts in the left middle frontal gyrus, right occipital cortex, and left cerebellum. Moderate cerebral volume loss and mild cerebellar volume loss. Incidental retention cyst in the left fossa of [place]. Mild left mastoid effusion. Expected intracranial vascular flow voids are preserved. The orbits are unremarkable. Calvarial bone marrow signal is within normal limits. The scalp and soft tissues are grossly normal. There is a punctate focus of susceptibility artifact in the left frontal lobe and right temporal lobe that are nonspecific but may represent remote microhemorrhages, mineralization, or occult cavernomas. No pathologic enhancement. Impression : 1. No evidence of acute intracranial abnormality. 2. No pathologic enhancement to suggest intracranial metastatic disease. 3. Moderate cerebral and mild cerebellar parenchymal volume loss. Moderate chronic ischemic microvascular disease. 4. Chronic ischemic infarcts in the left middle frontal gyrus, right occipital cortex, and left cerebellar hemisphere. Dictated by Gaudencio Hoang MD @ 07/28/2025 2:59:45 PM (Electronically Signed)
== END 2025-07-27 12:39 | disposition home or self-care (01) ==
LOC: MRI 12:40
PROVIDERS: PCP Family Medicine; Visit Provider Internal Medicine Hematology & Oncology
DX: C34.90 Malignant neoplasm of unspecified part of unspecified bronchus or lung (principal); I67.82 Cerebral ischemia; R53.81 Other malaise; Z86.73 Personal history of transient ischemic attack (TIA), and cerebral infarction without residual deficits
CPT/HCPCS: 70553; A9575

== ENCOUNTER 2025-07-29 13:50 | Outpatient (CLI) | payer MEDICARE, BC, SELFPAY ==
--- NOTE | 2025-07-29 14:30 | CRLHL7_ITS ---
For Patients: As a result of the Century Cures Act, medical imaging exams and procedure reports are released immediately into your electronic medical record. You may view this report before your referring provider. If you have questions, please contact your health care provider. CLINICAL HISTORY: Lung cancer. TECHNIQUE: Following IV injection of 48-uqtmea-2-deoxyglucose (FDG) and a standard uptake period of approximately 60 minutes, a non-contrast CT scan followed by a PET scan were acquired along the length of the body from the mid portion of the head to the mid thighs. The non-contrast CT was used for anatomic localization and photon attenuation correction of the PET scan. Blood Glucose Level (mg/dL): 128 FDG Dose (mCi): 14.1 COMPARISON: PET-CT scans dated 22 April 2025 and 31 December 2024. FINDINGS: Head/Neck: No abnormal activity identified in the head and neck. Chest: Right-sided Port-A-Cath. No mediastinal or hilar adenopathy. No axillary adenopathy. Atherosclerotic vascular calcifications. The lungs show a small area of atelectasis along the lateral aspect of the right minor fissure. 5 mm pulmonary nodule in the posterior aspect of the right upper lobe, best seen on image 97. No pneumothorax. Abdomen/Pelvis: No focal abnormalities identified in the visualized portions of the liver, spleen, pancreas, adrenal glands, and kidneys. No hydronephrosis. Scattered increased activity in the distal small bowel and colon with no corresponding CT abnormality is likely physiologic. Ascending colectomy. The remainder of the GI tract is incompletely distended but shows no gross abnormalities. No retroperitoneal, pelvic sidewall, or mesenteric adenopathy. Atherosclerotic vascular calcifications. Bones: Degenerative changes of the spine. Healing fractures of the lateral aspects of the right 6th and 7th ribs show low activity. Healing fracture of the lateral aspect of the left 10th rib, SUV max 5.1. IMPRESSION: 1. No adenopathy. 2. A few healing rib fractures. Dictated by Mike Wilkins MD @ 08/01/2025 5:05:41 PM (Electronically Signed)
== END 2025-07-29 13:51 | disposition home or self-care (01) ==
LOC: RAD 13:50
PROVIDERS: PCP Family Medicine; Visit Provider Internal Medicine Hematology & Oncology
DX: C34.11 Malignant neoplasm of upper lobe, right bronchus or lung (principal)
CPT/HCPCS: 78815; A9552